=== PATIENT | female | born 1990 | race Two or more races ===

== ENCOUNTER 2023-12-10 12:15 | Outpatient (OUT) | payer OTHER, SELFPAY ==
--- NOTE | 2023-12-10 12:17 | US_ITS ---
[address] [address] Patient Name: SABRINA VELASQUEZ MRN: [id number] date: 1990 Sex: F Assigned Patient Location: US Current Patient Location: US Accession/Order Number: [id number] Exam Date: 12/10/2023 12:17 Report Date: 12/10/2023 13:24 At the request of: LIA BENAVIDES Procedure: US OB transvaginal EXAMINATION: US OB transvaginal HISTORY: MISSED MENSES COMPARISON: No relevant comparison available. FINDINGS: Martínez intrauterine gestation Gestational sac: 4.2 cm, 9 weeks 4 days CRL: 4.67 cm, 11 weeks 2 days Yolk sac: 6.6 mm Heart rate: 153 beats minute Cervix: Closed, 4.8 cm The uterus is normal, anteverted, anteflexed The ovaries are normal Clinical age: 10 weeks 6 days Clinical FRANCISCO: 07/01/2024 Ultrasound age: 11 weeks 3 days Ultrasound FRANCISCO: 06/27/2024 US/US OB transvaginal IMPRESSION: Viable martínez intrauterine gestation measuring 11 weeks 3 days Electronically authenticated by: SHAY BEY Date: 12/10/2023 13:24
== END 2023-12-10 12:16 | disposition home or self-care (01) ==
LOC: US 12:15
PROVIDERS: Visit Provider Obstetrics & Gynecology
DX: Z34.91 Encounter for supervision of normal pregnancy, unspecified, first trimester (principal); N92.6 Irregular menstruation, unspecified
CPT/HCPCS: 76817

== ENCOUNTER 2023-12-30 14:12 | Outpatient (OUT) | payer OTHER, SELFPAY ==
--- OUTSIDE RECORDS SUMMARY | 2023-12-30 14:20 | XMS_ITS | CCD ---
Author Name Unknown Address [address] [place] [address] Organization [facility] Care Team Providers Care Emergency Services Director Name Role Phone Omid Killian Unavailable Unavailabl e MOROCCVANESSA Zazueta Unavailable Unavailable KILLIAN, OMID SANDADI Unavailable Unavailabl e SYSTEM, PROVIDER NOT IN Unavailable Unavaila ble TRACY, NOWWAR GHAZI YASIN Unavailable Unav ailable LOGAN ZAMAN Unavailable Unavailabl e KILLIAN, OMID SANDADI Unavailable Unavailabl e Killian, Omid Sandadi Primary Care Provider OMID KILLIAN Primary Care Unavailabl ALICIA Ramos Attending Unavailable Medications Current Medications Medication Drug Class(es) Dates Sig (Normalized) Sig (Original) adapalene 0.003 mg/mg / benzoyl peroxide 0.025 mg/mg topical gel (4 sources) Retinoid Start: 05-17-2018 adapalene-benzoyl peroxide (EPIDUO FORTE) 0.3-2.5 % GlwP Apply 1 application topically daily. 45 g 1 05/17/2018 Active 24 hr minocycline 105 mg extended release oral tablet (4 sources) Tetracycline-clas s Drug Start: 08-09-2018 take 1 tablet by mouth once daily minocycline (SOLODYN) 105 mg Tb24 Take 105 mg by mouth daily. 30 tablet 2 08/09/2018 Active Start: 05-17-2018 take 1 tablet by nimesh th once daily, then take 1 tablet by mouth minocycline (SOLODYN) 105 mg Tb24 Take 105 mg by mouth daily. 30 tablet 2 05/17/2018 Active Completed/Discontinued Medications Medication Drug Class(es) Dates Sig (Normalized) Sig (Original) 2 ml rho(d) immune globulin, human 750 unt/ml prefilled syringe (1 source) Human Immunoglobulin G Start: 07-14-2020 End: 07-14-2020 rho(d) immune globulin (RHOPHYLAC) injection 300 mcg Problems Problem Classification Problem Date Documented Date Episodic/Chronic Hemorrhage during ; abruptio placenta; placenta previa (1 source) Threatened miscarriage; Translations: [Threatened ] Episodic Medical examination/evaluatio n (2 sources) Encounter for preprocedural cardiovascular examination; Translations: [Encounter for preprocedural cardiovascular examination] Onset: 06-14-2018 Episodic Other skin disorders (3 sources) Acne vulgaris; Translations: [Acne vulgaris] Onset: 05-17-2018 Episodic Skin and subcutaneous tissue infections (3 sources) Carbuncle; Translations: [Carbuncle, unspecified] Onset: 05-17-2018 Episodic Substance-related disorders (6 sources) Smoker; Translations: [Nicotine dependence, unspecified, uncomplicated] Onset: 06-14-2018 06-14-2018 Chronic Unclassified (4 sources) Patient encounter status; Translations: [Preop cardiovascular exam] Onset: 06-14-2018 06-14-2018 Results Test Name Value Interpretation Reference Range Facility [facility] VERIFICATIONon 020 ABO and Rh group Nom (Bld) A Negative [facility] ABO and Rh group Nom (Bld) ABO/Rh Verification [facility] BMPon 07-14-2020 Anion gap [Moles/Vol] 6 mmol/L Low 10 - 20 mmol/L [facility] Calcium [Mass/Vol] 9.0 mg/dL 8.4 - 10. 2 mg/dL [facility] Chloride [Moles/Vol] 113 mmol/L High 98 - 108 mmol/L [facility] Creatinine [Mass/Vol] 0.64 mg/dL 0.40 - 1.10 [facility] GFR/1.73 sq M predicted among non-blacks MDRD (S/P/Bld) [Vol rate/Area] The eGFR should be used for monitoring renal function only and not for medication dosing. [facility] GFR/1.73 sq M.predicted CKD-EPI (S/P/Bld) [Vol rate/Area] 122 >=60 mL/min/1.73 m2 [facility] Glucose [Mass/Vol] 71 mg/dL 65 - 99 mg/dL [facility] HCO3 [Moles/Vol] 28 mmol/L 21 - 32 mmol/L [facility] Potassium [Moles/Vol] 3.9 mmol/L 3.5 - 5.1 mmol/L [facility] Sodium [Moles/Vol] 143 mmol/L 135 - 145 mmol/L [facility] Urea nitrogen [Mass/Vol] 8 mg/dL 8 - 25 mg/dL [facility] Urea nitrogen/Creatinine [Mass ratio] 12.5 mg/mg [facility] CBC WITH AUTO DIFFERENTIALon 07-14-2020 Basophils (Bld) [#/Vol] 0.03 10*3/uL [facility] Basophils/100 WBC (Bld) 0.4 % [facility] Eosinophils (Bld) [#/Vol] 0.10 10*3/uL [facility] Eosinophils/100 WBC (Bld) 1.5 % [facility] Erythrocyte distribution width (RBC) [Entitic vol] 12.3 % 11.6 - 14.8 % [facility] Hematocrit (Bld) [Volume fraction] 39.2 % 36 - 46 % [facility] Hemoglobin (Bld) [Mass/Vol] 13.6 g/dL 12 - 16 g/dL [facility] Immature granulocytes (Bld) [#/Vol] 0.02 10*3/uL [facility] Immature granulocytes/100 WBC (Bld) 0.30 % [facility] Comment on above: The IG parameter is the percentage of metamyelocytes, myelocytes and promyelocytes. An immature granulocyte count (IG) of 1% or more suggests the possibility of infection, an IG count of 3% is very likely related to an infection. Lymphocytes (Bld) [#/Vol] 1.95 10*3/uL [facility] Lymphocytes/100 WBC (Bld) 29.2 % [facility] MCH (RBC) [Entitic mass] 30.4 pg 26 - 34 pg [facility] MCHC (RBC) [Mass/Vol] 34.7 g/dL 31 - 37 g/dL [facility] MCV (RBC) [Entitic vol] 87.7 fL 80 - 100 fL [facility] Monocytes (Bld) [#/Vol] 0.48 10*3/uL [facility] Monocytes/100 WBC (Bld) 7.2 % [facility] Neutrophils (Bld) [#/Vol] 4.09 10*3/uL [facility] Neutrophils/100 WBC (Bld) 61.4 % [facility] Nucleated RBC (Bld) [#/Vol] 0.00 10*3/uL [facility] Nucleated RBC/100 WBC (Bld) [Ratio] 0.0 % [facility] Platelet mean volume (Bld) [Entitic vol] 11.8 fL 9.4 - 12.4 fL [facility] Platelets (Bld) [#/Vol] 151 10*3/uL [facility] RBC (Bld) [#/Vol] 4.47 10*6/uL [facility] WBC (Bld) [#/Vol] 6.67 10*3/uL [facility] Otheron 07-14-2020 Extra Tube Hold for add-ons. [facility] Comment on above: Auto resulted. Interpretation and review of laboratory results Abnormal [facility] Type and Screenon 07-14-2020 ABO and Rh group Nom (Bld) A Negative [facility] Blood group antibody screen Ql Negative [facility] Specimen Expires 07/17/2020 23:59 EST [facility] URINALYSISon 07-14-2020 Bacteria Auto Ql (U) None Seen None Seen /hpf [facility] Bilirubin Ql (U) Negative Negative [facility] th Clarity Refractometry automated (U) Clear Clear [facility] Color (U) Yellow Colorless, Yellow [facility] Epithelial cells.squamous Auto (Urine sed) [#/Area] 5 High [facility] Glucose Auto test strip (U) [Mass/Vol] Negative Negative mg/dL [facility] Hemoglobin Auto test strip Ql (U) Moderate Abnormal Negative [facility] Interpretation and review of laboratory results Abnormal [facility] Ketones (U) [Mass/Vol] Negative Negative mg/dL [facility] Leukocyte esterase Auto test strip Ql (U) Trace Abnormal Negative [facility] Mucus Auto (Urine sed) [#/Area] Rare None Seen, Rare /lpf [facility] Nitrite Auto test strip Ql (U) Negative Negative [facility] pH (U) 7.0 [pH] [facility] Protein (U) [Mass/Vol] Negative Negative mg/dL [facility] RBC Auto (Urine sed) [#/Area] 2 [facility] Specific gravity (U) [Rel density] 1.011 [facility] Urobilinogen (U) [Mass/Vol] <2.0 <2.0 mg/dL [facility] WBC Auto (Urine sed) [#/Area] 2 [facility] Microscopic examination is performed on all urinalysis samples and only positive findings are reported. The test for blood on the chemical analytic portion of urinalysis may also be positive due to hemoglobinuria and myoglobinuria and if red blood cells are present they are quantified by microscopic examination. [facility] OB 1ST TRIMESTER WITH TRA NSVAGINAL TRANSABDOMINAL AND COLOR FLOW SINGLE FETUSon 07-14-2020 US OB 1ST TRIMESTER WITH TRANSVAGINAL TRANSABDOMINAL AND COLOR FLOW SINGLE FETUS EXAMINATION: ULTRASOUND OF THE PELVIS, ENDOVAGINAL IMAGING WITH DUPLEX DOPPLER HISTORY: ORDERING SYSTEM PROVIDED HISTORY: vaginal bleeding, TECHNOLOGIST PROVIDED HISTORY: Illness/Other Reason for exam: SPOTTING Cancer History: no Surgery, RadiationHistory: no Encounter Type: Initial Additional signs and symptoms: no ORDERING SYSTEM PROVIDED DIAGNOSIS CODES: COMPARISON: None. TECHNIQUE: Endovaginal hawkins-scale imaging was supplemented with color Doppler and spectral waveform analysis including arterial and venous evaluation. FINDINGS: UTERUS: 7.5 x 4.1 x 3.4 cm. Normal myometrial echogenicity ENDOMETRIUM: 12.2 mm. No intrauterine gestational sac seen. RIGHT OVARY: 2.4 cm. Normal appearance. LEFT OVARY: 2.3 cm. Normal appearance Color Doppler with spectral waveform analysis reveals preserved arterial flow to both ovaries with no torsion. Resistive index: Right 0.6. Left 0.6. These measurements are within normal limits. No free peritoneal fluid is seen. IMPRESSION: 1. Normal study. 2. With a positive beta hCG, this is a of unknown location. Clinical correlation including serial beta hCG levels is needed differentiate the possibilities which include extremely early , spontaneous of recent , or ectopic gestation which is not directly visualized. With a history of bleeding, spontaneous of is believed most likely. [facility] Workstation ID: [id number] Dictated by: SHAY FERNANDEZ on Sat Jul 14, 2020 12:00:51 PM EDT Transcribed by: PREETI VILLALTA on Sat Jul 14, 2020 12:07:08 PM EDT Finalized by: SHAY FERNANDEZ on Sat Jul 14, 2020 12:57:25 PM EDT Normal [facility] Comment on above: Order Comment: Injur y/Trauma or Illness?:Illness/Other How long have you had these symptoms (acute/chronic)?:Acute Reason for exam?:SPOTTING History of cancer?:no Surgeries, chemotherapy, or radiation?:no Type of Exam?:Initial Additional signs and symptoms?:no US Obstetric 1st Trimester W ith Transvaginal, Transabdominal And Color Flow Single Fetuson 07-14-2020 EXAMINATION: ULTRASOUND OF THE PELVIS, ENDOVAGINAL IMAGING WITH DUPLEX DOPPLER HISTORY: ORDERING SYSTEM PROVIDED HISTORY: vaginal bleeding, TECHNOLOGIST PROVIDED HISTORY: Illness/Other Reason for exam: SPOTTING Cancer History: no Surgery, RadiationHistory: no Encounter Type: Initial Additional signs and symptoms: no ORDERING SYSTEM PROVIDED DIAGNOSIS CODES: COMPARISON: None. TECHNIQUE: Endovaginal hawkins-scale imaging was supplemented with color Doppler and spectral waveform analysis including arterial and venous evaluation. FINDINGS: UTERUS: 7.5 x 4.1 x 3.4 cm. Normal myometrial echogenicity ENDOMETRIUM: 12.2 mm. No intrauterine gestational sac seen. RIGHT OVARY: 2.4 cm. Normal appearance. LEFT OVARY: 2.3 cm. Normal appearance Color Doppler with spectral waveform analysis reveals preserved arterial flow to both ovaries with no torsion. Resistive index: Right 0.6. Left 0.6. These measurements are within normal limits. No free peritoneal fluid is seen. [facility] 1. Normal study. 2. With a positive beta hCG, this is a of unknown location. Clinical correlation including serial beta hCG levels is needed differentiate the possibilities which include extremely early , spontaneous of recent , or ectopic gestation which is not directly visualized. With a history of bleeding, spontaneous of is believed most likely. [facility] Workstation ID: [id number] [facility] Interface, Rad In Etelvina Edwardq - 07/14/2020 1:00 PM EDT EXAMINATION: ULTRASOUND OF THE PELVIS, ENDOVAGINAL IMAGING WITH DUPLEX DOPPLER HISTORY: ORDERING SYSTEM PROVIDED HISTORY: vaginal bleeding, TECHNOLOGIST PROVIDED HISTORY: Illness/Other Reason for exam: SPOTTING Cancer History: no Surgery, RadiationHistory: no Encounter Type: Initial Additional signs and symptoms: no ORDERING SYSTEM PROVIDED DIAGNOSIS CODES: COMPARISON: None. TECHNIQUE: Endovaginal hawkins-scale imaging was supplemented with color Doppler and spectral waveform analysis including arterial and venous evaluation. FINDINGS: UTERUS: 7.5 x 4.1 x 3.4 cm. Normal myometrial echogenicity ENDOMETRIUM: 12.2 mm. No intrauterine gestational sac seen. RIGHT OVARY: 2.4 cm. Normal appearance. LEFT OVARY: 2.3 cm. Normal appearance Color Doppler with spectral waveform analysis reveals preserved arterial flow to both ovaries with no torsion. Resistive index: Right 0.6. Left 0.6. These measurements are within normal limits. No free peritoneal fluid is seen. IMPRESSION: 1. Normal study. 2. With a positive beta hCG, this is a of unknown location. Clinical correlation including serial beta hCG levels is needed differentiate the possibilities which include extremely early , spontaneous of recent , or ectopic gestation which is not directly visualized. With a history of bleeding, spontaneous of is believed most likely. [facility] Workstation ID: [id number] [facility] VAGINITIS DNA PROBESon 07-14 Olga sp DNA Probe+sig amp Ql (Vag fld) Negative Negative [facility] G. vaginalis DNA Probe+sig amp Ql (Vag fld) Negative Negative [facility] Interpretation and review of laboratory results Normal [facility] T. vaginalis DNA Probe+sig amp Ql (Vag fld) Negative Negative [facility] hCG, Blood, QUANTitativeon 0 07-14-2020 Beta HCG ( test) Ql (U) Males and non females: <5 mIU/mL Females during : 3-4 weeks 9-130 mIU/mL 4-5 weeks 75-2600 mIU/mL 5-6 weeks 850-20,800 mIU/mL 6-7 weeks 4000-100,200 mIU/mL 7-12 weeks 11,500-289,000 mIU/mL 12-16 weeks 18,300-137,000 mIU/mL 16-29 weeks 1,400-53,000 mIU/mL 29-41 weeks 940-60,000 mIU/mL [facility] HCG Qn 438 m[IU]/mL High [facility] Basic Metabolic Panelon 04-0 Anion gap [Moles/Vol] 7.0 mmol/L Normal 6.0-18.0 [facility] Comment on above: Performed By: #### 2 4321-2, 05558-2, 91026-5e1, 1988-03 ####[facility] [address], [place] Calcium [Mass/Vol] 8.6 mg/dL Low 8.9-10.3 [facility] Comment on above: Performed By: #### 2 4321-2, 94984-9, 18529-3y4, 1988-03 ####[facility] [address], [place] Chloride [Moles/Vol] 107 mmol/L Normal 98-107 [facility] Comment on above: Performed By: #### 2 4321-2, 21166-6, 15194-3k3, 1988-03 ####[facility] [address], [place] CO2 [Moles/Vol] 24 mmol/L Normal 22-32 [facility] Comment on above: Performed By: #### 2 4321-2, 98925-2, 60742-5h3, 1988-03 ####[facility] [address], [place] Creatinine [Mass/Vol] 0.67 mg/dL Normal 0.60-1.30 [facility] Comment on above: Performed By: #### 2 1-2, 32681-6, 91927-8l4, 1988-03 ####[facility] [address], [place] Glucose [Mass/Vol] 105 mg/dL High 70-99 [facility] Comment on above: Result Comment: U pdated ADA Reference Range A normal fasting glucose concentration is less than 100 mg/dL. An impaired fasting glucose concentration is 100-125 mg/dL. A provisional diagnosis of diabetes mellitus can be made when a fasting glucose concentration is greater than 125 mg/dL. Performed By: #### 2 4320-2, 27079-3, 02885-4u8, 1988-03 ####[facility] [address], [place] Potassium [Moles/Vol] 4.1 mmol/L Normal 3.6-5.1 [facility] Comment on above: Performed By: #### 2 4321-2, 08588-2, 68730-4n2, 1988-03 ####[facility] [address], [place] Sodium [Moles/Vol] 138 mmol/L Normal 136-145 [facility] Comment on above: Performed By: #### 2 1-2, 31817-8, 77962-0e6, 1988-03 ####[facility] [address], [place] Urea nitrogen (BldV) [Mass/Vol] 8 mg/dL Normal 8-20 [facility] Comment on above: Performed By: #### 2 4321-2, 57989-6, 54613-8p5, 1988-03 ####[facility] [address], [place] C-Reactive Proteinon 019 CRP [Mass/Vol] 3.2 mg/dL High <1.0 [facility] Comment on above: Performed By: #### 2 4321-2, 05868-1, 20563-7f3, 1988-03 ####[facility] [address], [place] CBCon 03-01-2019 Erythrocyte distribution width (RBC) [Entitic vol] 14.3 % Normal 11.0-14.8 [facility] Comment on above: Performed By: #### 2 4317-0 ####[facility]ARENME[facility] [address], [place] Hematocrit (Bld) [Volume fraction] 37.5 % Normal 35.0-45.0 [facility] Comment on above: Performed By: #### 2 4317-0 ####[place] [address], [place] Hemoglobin (Bld) [Mass/Vol] 12.5 g/dL Normal 12.0-16.0 [facility] Comment on above: Performed By: #### 2 4317-0 ####[place] [address], [place] MCH (RBC) [Entitic mass] 28.1 Picograms Normal 27.0-34.0 [facility] Comment on above: Performed By: #### 2 4317-0 ####[place] [address], [place] MCHC (RBC) [Mass/Vol] 33.3 g/dL Normal 32.0-36.0 [facility] Comment on above: Performed By: #### 2 4317-0 ####[place] [address], [place] MCV (RBC) [Entitic vol] 84.6 fL Normal 80.0-97.0 [facility] Comment on above: Performed By: #### 2 4317-0 ####[address] [place], [place] Platelet mean volume (Bld) [Entitic vol] 10.5 fL Normal 6.2-12.1 [facility] Comment on above: Performed By: #### 2 4317-0 ####[address] [address] [place], [place] Platelets (Bld) [#/Vol] 231 thou/mcL Normal 142-424 [facility] Comment on above: Performed By: #### 2 4317-0 ####[address] [address] [place], [place] RBC (Bld) [#/Vol] 4.43 million/mcL Normal 3.80-5.10 [facility] Comment on above: Performed By: #### 2 4317-0 ####[place] [place] [address] [place] WBC (Bld) [#/Vol] 12.7 thou/mcL High 4.6-10.2 [facility] Comment on above: Performed By: #### 2 4317-0 ####[place] [address] [place], [place] GFRaaon 03-01-2019 GFR/1.73 sq M predicted among blacks MDRD (S/P/Bld) [Vol rate/Area] mL/min/{1.73_m2} Normal [facility] Comment on above: Result Comment: The MDRD equation has not been validated for those over 70 years, women, patients with serious co-morbid conditions, or with extremes of body size, muscle mass of nutritional status. Performed By: #### 2 4321-2, 10254-8, 31902-9o7, 1988- ####[address] [address] [address] [place], [place] GFRbbon 03-01-2019 GFR/1.73 sq M predicted among non-blacks MDRD (S/P/Bld) [Vol rate/Area] mL/min/{1.73_m2} Normal [facility] Comment on above: Performed By: #### 2 4321-2, 97689-6, 26299-0f6, 1987- ####[facility] [address] [place], [place] Glucose POCT (Uploaded)on Glucose [Mass/Vol] 87 mg/dL Normal 70-99 [facility] Comment on above: Result Comment: Nadia tment ranges and critical values established by Patient Care Services. All follow-up actions were taken by Patient Care Services. Performed By: #### 2 430-8 ####[facility] Glucose [Mass/Vol] 93 mg/dL Normal 70-99 [facility] Comment on above: Result Comment: Nadia tment ranges and critical values established by Patient Care Services. All follow-up actions were taken by Patient Care Services. Performed By: #### 2 430-8 ####[facility] Glucose [Mass/Vol] 95 mg/dL Normal 70-99 [facility] Comment on above: Result Comment: Nadia tment ranges and critical values established by Patient Care Services. All follow-up actions were taken by Patient Care Services. Performed By: #### 2 430-8 ####[facility] Glucose [Mass/Vol] 123 mg/dL High 70-99 [facility] Comment on above: Result Comment: Nadia tment ranges and critical values established by Patient Care Services. All follow-up actions were taken by Patient Care Services. Performed By: #### 2 430-8 ####[facility] PACU I Nursingon 03-01-2019 PACU I Nursing [facility] PACU I Nursin g Record Summary Primary Physician: Marcellus Driscoll MD Finalized Date/Time: 03/01/19 07:03:14 Pt. Name: SABRINA VELASQUEZ/Sex: 1990 Female Med Rec #: [id number] Physician: Marcellus Driscoll MD Financial #: [id number] Pt. Type: I Room/Bed: [address] [place] [address] Admit/Disch: 02/28/19 08:18:00 - Institution: [facility] OR Main PACU I Case Times Entry 1 In PACU I 02/28/19 14:06:00 Ready for PACU I 02/28/19 15:15:00 Discharge Discharge from PACU 02/28/19 15:15:00 PACU I Discharge NA I Delay Reason Last Modified By: Elissa Shaffer RN 02/28/19 15:45:35 [facility] OR Main PACU I Case Attendees Entry 1 Case Attendee Elissa Shaffer RN Role Performed RN Last Modified By: Elissa Shaffer RN 02/28/19 14:07:29 Finalized By: Sherrie Rendon RN Document Signatures Signed By: Elissa Shaffer RN 02/28/19 15:45 Sherrie Rendon RN 03/01/19 07:03 Normal [facility] Patient Summaryon 03-01-2019 Patient Summary PATIENT DISCHARGE INSTRUCTIONS If you are having an emergency and are not able to reach your physician, CALL 911 or go to the nearest emergency room and take this document with you. [facility] 03/01/19 18:[address] [place] [address]. [facility] PATIENT INFORMATION Name: SABRINA VELASQUEZ Address: [address] [place] [address] Age: 29 Years Phone: [phone] : 1990 12:00 MRN: ([facility][id number] Sex: Female Race: White Ethnicity: Declined Admitted From: Clinic or [facility] Medical Service: Surgery Nurse Unit/Bed: (NC) 7TWH 5G61-94 Admit Date: 02/28/2019 08:18 PCP: Omid Killian MD PHYSICIANS INVOLVED WITH CARE ------ Attending Physicians: Marcellus Driscoll MD - Surgery Admitting Physician: Marcellus Driscoll MD - Surgery Primary Care Physician:Donaldo URBINA , Omid Almeida, - Consults: None found FOLLOW-UP APPOINTMENTS: Provider: Specialty: Address: Date: Marcellus Driscoll MD Surgery [address] [facility] [place] [facility] [address] [facility] [address] (1) 03/08/19 01:45 pm Comment: Please follow-up at your pre-scheduled appointment. Provider: Specialty: Address: Date: Omid Killain MD [address] [facility] [address] (1) Follow-up as needed Provider: Specialty: Address: Date: Post-Op Nutrition Class [phone] 03/22/19 Comment: Please call [phone] for more information or to re-schedule. ALLERGIES: No Known Allergies No Known Medication Allergies MEASUREMENTS: Last Charted: Weight: 171.8 kg /378 lbs 12 oz ( 03/01/19 05:48:00 ) MEDICATIONS For: SABRINA VELASQUEZ This is your list of medication(s). Keep it with you at all times. Your doctor may have changed doses, add, held or stopped some of your medications. Please share this information with your family doctor. Carry this list of medications with you in case of an emergency. Update it when medications are stopped, doses are changed, or new medications (including [id number] products) are added. Ask your doctor if you have any questions. THESE ARE THE MEDICATIONS YOU SHOULD BE TAKING No Known Home Medications MEDICATION CHANGE DETAILS (Not your Final Home Medication List) During the course of your visit, your home medication list was updated with the most current information. The details of those changes are shown below: NEW MEDICATIONS None UPDATED MEDICATIONS None UNCHANGED MEDICATIONS None STOP TAKING THESE MEDICATIONS None DO NOT TAKE UNTIL YOU TALK TO YOUR DOCTOR None NON-MEDICATION PRESCRIPTION SCHEDULING PHONE NUMBER: EDUCATION MATERIALS GIVEN: Teaching Method Comment-Nutrition: Helpful Tips After Bariatric Surgery SELECTED LAB RESULTS Lab Result Order Date Hemoglobin 12.5 gm/dL 03/01/2019 Hematocrit 37.5 % 03/01/2019 WBC Count 12.7 thou/mcL 03/01/2019 Platelet Count 231 thou/mcL 03/01/2019 Sodium Level 138 mMol/L 03/01/2019 Potassium Level 4.1 mMol/L 03/01/2019 Creatinine 0.67 mg/dL 03/01/2019 BUN 8 mg/dL 03/01/2019 Glucose Level 105 mg/dL 03/01/2019 ADVANCE DIRECTIVE/HEALTH CARE DECISIONS: Advance Directive/Health Care Decisions Executed by Patient: : No Information Obtained From: Patient Advance Directive Health Care Information Offered: Patient declines DISCHARGE INSTRUCTIONS: Discharge Diet Avoid Alcoholic and Caffeinated beverages. They increase the risk of dehydration and have little nutritional value. Avoid carbonated beverages, including sparkling mineral water. Avoid drinks that contain added sugar as these can cause dumping syndrome. Drink enough fluids to keep you from becoming thirsty or dehydrated. 64 ounces is recommended daily. Begin with 15 cc of fluid every 15 minutes for 16 hours (total of 32 oz) and gradually advance to 30 cc ever 15 minutes for 16 hours (total 64 ounces. Suggested fluids include: water, Crystal light, sugar free Pop-aid, sugar free Popsicles, decaffeinated or herbal tea, broth/ bouillon, sugar- free flavored water, Special K protein water, and other non-carbonated, low calorie drinks, and Special K protein water. 100% fruit juices (apple, cranberry, grape) should be diluted 50/50 with water and limited to 8ounces/day. Continue sugar-free liquids and protein shakes until next office visit. Frequently nausea may be caused by too much food, eating too fast, not chewing enough or eating the wrong foods.. If you are vomiting and unable to keep down any fluids even after taking medication, return to to Phase I diet for 24 hours and see if it has improved. Modified liquid diet. Follow recommendations from your surgeon and hydrate thickener operator regarding you diet. Refer to nutrition information provided before surgery. Protein intake is extremely important. Include high protein beverages such as skim milk, no sugar added Instant Breakfast mixes, whey protein or soy protein drink, and Special K protein water. Goal is 64 oz per day.. Use one- ounce medication cups to help gauge the amount of liquids you consume. Liquids should be sipped slowly (1oz. Over 15 minutes), never gulp. Stop when a feeling of fullness occurs. Do not use straws.. Discharge Activities Continue with walking at least nine times a day. Continue with your range of motion activities. Gradually increase activity according to your energy level. Go upstairs slowly. Shower daily. Do not drive or return to work until cleared by your surgeon. Do not drive or ride in a car for more than one hour without getting out and walking for 10 minutes. Limit lifting to less than 25 pounds for 3 weeks, then may lift when incision no longer painful. Pain Management Instructions Your throat may be sore for a few days. Discharge Medication Info Ask your doctor before taking any supplements, herbal or byqn-omi-qgnecsc medications. Call your physician if any questions regarding medications. Do not drink alcoholic beverages (beer, wine or liquor) when taking pain medications. Take all medications as prescribed. Do not stop medications without checking with your physician. If you have more than one oral medication to take at one time, you must space the pills 15 to 20 minutes apart. Take antibiotics until they are gone even if you feel better. Take the pain medication as ordered by your doctor. Take your medication prescribed for nausea as needed. To best control your pain, take your pain medication regularly for the first 24 to 48 hours after discharge. Do not wait until pain increases to take your medication. You should not take any medication unless your surgeon tells you it is okay. Take your Flintstones Chewable Vitamin with Iron one in the morning and one in the evening. Notify Physician If you have pain, tenderness, swelling, or redness in your leg, it may be a sign of blood clot formation. If you have shortness of breath, chest pain, and persistent coughing, it may be a sign of a blood clot in your lungs. Anything that you would consider abnormal for you, report to your doctor. For any other conditions that were not present when you were discharged from the hospital. For inablility to tolerate diet. If you have questions or concerns about your surgery or medicine. If you have abdominal pain not relieved by pain medications. If your incision/wound is swollen, red, or has increased drainage coming from it. This may mean it is infected. If you have ongoing diarrhea or constipation. If you have ongoing nausea or vomiting. If you develop a cold, sinus problems, flu-like symptoms, fever for any reason (temperature over 101F or 38C), problems urinating, (burning or stinging) or if you suspect an infection of any type, call your doctor immediately. Wound and Personal Care Do not be alarmed if a staple pulls out of the incision line it is ok. There may be straw colored fluid that exits from the incision line. No lotions or oils on or near open wounds. Wash incision lightly with soap and water once a day. Discharge Equipment and Supplies Continue to use your Incentive Spirometer at home. SUICIDE HOTLINE: Your mental and emotional well-being are important. If you are in a mental health crisis, or having thoughts of suicide, please call the nationwide suicide hotline, anytime day or night, at 5-684-328-SHST. Important information about accessing your health information through the [email or web address] patient portal If you initiated the self-registration process for [email or web address] during your stay, please check your personal email for an invitation to enroll in [email or web address] and complete the steps outlined in the email. If you would prefer to enroll while in the hospital, ask a member of your care team. We would be happy to assist you. If you have already enrolled in [email or web address], go to [email or web address] to login and access your health information. Thank you for choosing [facility]. PATIENT EDUCATION Gastric Bypass Surgery, Care After Refer to this sheet in the next few weeks. These discharge instructions provide you with general information on caring for yourself after you leave the hospital. Your caregiver may also give you specific instructions. Your treatment has been planned according to the most current medical practices available, but unavoidable complications sometimes occur. If you have any problems or questions after discharge, call your caregiver. HOME CARE INSTRUCTIONS Activity ?? Take frequent walks throughout the day. This will help to prevent blood clots. Do not sit for longer than 45 minutes to 1 hour while awake for 4 to 6 weeks after surgery. ?? Continue to do coughing and deep breathing exercises once you get home. This will help to prevent pneumonia. ?? Do not do strenuous activities, such as heavy lifting, pushing, or pulling, until after your follow-up visit with your caregiver. Do not lift anything heavier than 10 lb (4.5 kg). ?? Talk with your caregiver about when you may return to work and your exercise routine. ?? Do not drive while taking prescription pain medicine. Nutrition ?? It is very important that you drink at least 64 oz. of fluid a day. ?? You should stay on a liquid diet until your follow-up visit with your caregiver. Keep sugar-free, liquid items on hand, including: ? Tea: hot or cold. Drink only decaffeinated for the first month. ? Broths: beef, chicken, vegetable. ? Others: water, sugar-free frozen ice pops, flavored water, gelatin (after 1 week). ?? Do not consume caffeine for 6 weeks. Large amounts of caffeine can cause dehydration. ?? A hydrate thickener operator may also give you specific instructions. ?? Follow your caregiver's recommendations about vitamins and protein requirements after surgery. Hygiene ?? You may shower and wash your hair 2 days after surgery. Pat incisions dry. Do not rub incisions with a washcloth or towel. ?? Follow your caregiver's recommendations about baths and pools following surgery. Pain control ?? If a prescription medicine was given, follow your caregiver's directions. ?? You may feel some gas pain caused by the carbon dioxide used to inflate your abdomen during surgery. This pain can be felt in your chest, shoulder, back, or abdominal area. Moving around often is advised. Incision care ?? You may have 4 or more small incisions. They are closed with skin adhesive strips. Skin adhesive strips can get wet and will fall off on their own. Check your incisions and surrounding area daily for any redness, swelling, discoloration, fluid (drainage), or bleeding. Dark red, dried blood may appear under these coverings. This is normal. ?? If you have a drain, it will be removed at your follow-up visit or before you leave the hospital. ?? If your drain is left in, follow your caregiver's instructions on drain care. ?? If your drain is taken out, keep a clean, dry bandage over the drain site. SEEK MEDICAL CARE IF: ?? You develop persistent nausea and vomiting. ?? You have pain and discomfort with swallowing. ?? You have pain, swelling, or warmth in the lower extremities. ?? You have an oral temperature above 102 F (38.9 C). ?? You develop chills. ?? Your incision sites look red, swollen, or have drainage. ?? Your stool is black, tarry, or maroon in color. ?? You are lightheaded when standing. ?? You notice a bruise getting larger. ?? You have any questions or concerns. SEEK IMMEDIATE MEDICAL CARE IF: ?? You have chest pain. ?? You have severe calf pain or pain not relieved by medicine. ?? You develop shortness of breath or difficulty breathing. ?? There is bright red blood coming from the drain. ?? You feel confused. ?? You have slurred speech. ?? You suddenly feel weak. MAKE SURE YOU: ?? Understand these instructions. ?? Will watch your condition. ?? Will get help right away if you are not doing well or get worse. This information is not intended to replace advice given to you by your health care provider. Make sure you discuss any questions you have with your health care provider. Document Released: 06/30/2005 Document Revised: 12/07/2015 Document Reviewed: 04/08/2011 [employer] Patient Education ??2016 [employer]. Gastric Bypass Discharge Instructions 1. Follow-up Care ? If you don't already have an appointment, call today to schedule an appointment to return to your surgeon in 7-10 days ? If you regularly see your primary care doctor or any specialist call today to schedule an appointment for follow-up in 1-3 weeks. ? Call today and schedule to meet with the dietitian for post-operative class at 2 weeks [phone] ? Call Bariatric Nurse Navigator [phone] with any further questions or concerns Call [phone] if you have difficulty breathing or chest pain. 2. Call your surgeon if you have: ? temperature above 101 F (38.3 C). Take your temperature 2 times each day for 1 week ? signs and symptoms of infection: redness, swelling, drainage, or foul odor at the incision sites shaking and/or chills ? shortness of breath ? pain in your legs ? persistent nausea and vomiting for more than 24 hours and are not able to keep clear liquids down ? increasing drainage from your drain tube 3. Diet ? Begin keeping a food diary ? Drink small amounts of water often (64 oz total a day) ? Continue to slowly sip liquids ? Do not drink alcohol or carbonated beverages for 6 months ? Follow dietary instructions provided by bariatric dietitian ? Eat slowly and teach yourself to put the eating utensils down between each bite ? Do not use straws when drinking ? Do not swallow anything bigger than a plain M and M?? 4. Activity ? You may shower-DO NOT bathe in a bathtub for 3 weeks ? Continue to use your incentive spirometer cough and deep breathe every 2 hours while you are awake ? Walk every 2-4 hours while awake. You should walk 60 minutes each day while you are recovering. ? Continue to go up and down stairs slowly, one step at a time ? You may do light activities only-no deep knee bending ? Do not lift over 5-10 pounds for 6 weeks ? Avoid sitting for long periods of time ? Do not drive until approved by your surgeon ? Do not ride in a car more than 1 hour without getting out and walking for 10 minutes ? Do not take pain medications when you start driving ? Do not return to work until approved with your surgeon ? Do not have sexual activity for 3 weeks 5. Care ? Measure drainage tube output at least every 8 hours and record in journal 6. Medications Do not take non steroidal anti-inflammatory medications such as: - Aspirin, acetylsalicylic acid (Ascriptin, Aspercin, Aspirtab,Bufferin, Buffinol, Durlaza, Ecotrin, Halfprin) - Celecoxib (Celebrex) - Diclofenac (Cambia, Cataflam, Dyloject, Voltaren, Zipsor, Zorvolex) - Diflunisal (Dolobid) - Etodolac (Lodine) - Fenoprofen (Fenortho, Nalfon) - Flurbiprofen (Ansaid) - Ibuprofen (Addaprin, Advil,Caldolor,Dyspel , Genpril, Medipren, Motrin,NeoProfen, Nuprin, Provil) - Indomethacin (Indocin, Tivorbex) - Ketoprofen (Frotek, Ketophene, Rapidpaq, Orudis, Oruvail) - Ketorolac (Toradol) - Meclofenamate (Meclomen) - Mefenamic acid (Ponstel) - Meloxicam (Mobic, Vivlodex) - Nabumetone (Relafen) - Naproxen (Aleve, Anaprox, Naprelan,Naprosyn) - Oxaprozin (Daypro) - Piroxicam (Feldene) - Sulindac - Tolmetin (Tolectin) 7. Progestin Control - Post Surgery Caution For Women of childbearing age receiving progestin-based control: Medications may have been administered as part of your surgical treatment that could interfere with progestin-based control which includes the following: many control pills, injectable hormonal control such as Depo-Provera injection and hormonal intra-uterine systems, implants or a vaginal ring. This effect is similar to missing one oral contraceptive pill. To prevent unintended , you should use a back-up method of control for one month. This information provided above is for informational purposes only. [facility] does not promote, condone or endorse all the values expressed herein. The values or opinions they express with regard to the use of artificial contraception are not consistent with the teachings of the Hindu Mandaen and the Ethical and Gnosticist Directives for [facility]. If any of these instructions are different from what your doctor tells you, follow your doctor's orders. If you smoke, you should quit. For more information, talk with your doctor or call 8-648-TVYN-NOW ( ). PATIENT DISCHARGE INSTRUCTION Signature Page for: SABRINA VELASQUEZ Date/Time: 03/01/2019 18:42:02 A Clinician has explained the information on my discharge instructions and has provided me with a copy. My questions have been answered to my satisfaction. Patient Signature Date/Time Responsible Party Date/Time Relationship to Patient Clinician Signature Date/Time Normal [facility] Glucose POCT (Uploaded)on Glucose [Mass/Vol] 140 mg/dL High [address] [place] [address] Comment on above: Result Comment: Nadia tment ranges and critical values established by Patient Care Services. All follow-up actions were taken by Patient Care Services. Performed By: #### 2 430-8 ####[facility] POINT OF CARE Glucose [Mass/Vol] 127 mg/dL High [address] [place] [address] Comment on above: Result Comment: Nadia tment ranges and critical values established by Patient Care Services. All follow-up actions were taken by Patient Care Services. Performed By: #### 2 430-8 ####[facility] POINT OF CARE Glucose [Mass/Vol] 141 mg/dL [address] Comment on above: Result Comment: Nadia tment ranges and critical values established by Patient Care Services. All follow-up actions were taken by Patient Care Services. Performed By: #### 2 430-8 ####[facility] POINT OF CARE Glucose [Mass/Vol] 164 mg/dL [address] Comment on above: Result Comment: Nadia tment ranges and critical values established by Patient Care Services. All follow-up actions were taken by Patient Care Services. Performed By: #### 2 430-8 ####[facility] POINT OF CARE OR Nursingon 02-28-2019 OR Nursing [facility] OR Nursing Record Summary Primary Physician: Marcellus Driscoll MD Finalized Date/Time: 02/28/19 14:10:30 Pt. Name: SABRINA VELASQUEZ/Sex: 1990 Female Med Rec #: [id number] Physician: Marcellus Driscoll MD Financial #: [id number] Pt. Type: I Room/Bed: / Admit/Disch: 02/28/19 08:18:00 - Institution: [facility] OR Case Times Entry 1 Patient Times Patient In Room 02/28/19 11:17:00 Patient Out Room 02/28/19 14:05:00 Surgical Times Start Time 02/28/19 11:53:00 Stop Time 02/28/19 13:58:00 Last Modified By: Abner MARTIN , Disha Aiken 02/28/19 14:09:18 [facility] OR Case Attendees Entry 1 Entry 2 Entry 3 Case Attendee Yamila URBINA , Marcellus Mcmahan DO , Jacob Dorado CRNA , Kenny Smallwood Role Performed Primary Surgeon Anesthesiologist Nurse Cartography/Mapping Technician Time In 02/28/19 11:17:00 02/28/19 11:17:00 02/28/19 11:17:00 Time Out 02/28/19 14:05:00 02/28/19 14:05:00 02/28/19 14:05:00 Procedure Bypass Gastric Bypass Gastric Bypass Gastric Robot(N/A) Robot(N/A) Robot(N/A) Attendee Comment Relief Reason Last Modified By: Abner RN , Disha Levine RN , Disha Levine RN , Disha Aiken 02/28/19 14:09:25 02/28/19 14:09:25 02/28/19 14:09:25 Entry 4 Entry 5 Entry 6 Case Attendee Abner MARTIN , Disha Guaman RN , Litzy Garcia Role Performed sane nurse RN First Scrub Time In 02/28/19 11:17:00 02/28/19 11:17:00 02/28/19 11:17:00 Time Out 02/28/19 14:05:00 02/28/19 14:05:00 02/28/19 14:05:00 Procedure Bypass Gastric Bypass Gastric Bypass Gastric Robot(N/A) Robot(N/A) Robot(N/A) Attendee Comment LUNCH [id number] LUNCH [id number] lunch [id number] Relief Reason Last Modified By: Abner MARTIN , Disha Levine RN , Disha Levine RN , Disha Aiken 02/28/19 14:09:25 02/28/19 14:09:25 02/28/19 14:09:25 Entry 7 Entry 8 Entry 9 Case Attendee Adi MARTIN , Swetha Rao, Attendee Other Role Performed sane nurse First Scrub Line Patroller Time In 02/28/19 11:48:00 02/28/19 11:57:00 02/28/19 11:17:00 Time Out 02/28/19 12:40:00 02/28/19 12:53:00 02/28/19 14:05:00 Procedure Bypass Gastric Bypass Gastric Bypass Gastric Robot(N/A) Robot(N/A) Robot(N/A) Attendee Comment [place] MIRANDA - INTUITIVE Relief Reason Last Modified By: Abner MARTIN , Disha Levine RN , Disha Levine RN , Disha Aiken 02/28/19 14:09:25 02/28/19 14:09:25 02/28/19 14:09:25 [facility] OR General Case Pressure Supervisor 1 OR CO W 11 ASA Class 3 Case Wound Class Clean Contaminated Specialty General Surgery Case Level Robotics Complex Procedure r/t No Traumatic Injury (blunt or penetrating) Diagnosis Preop Diagnosis E66.01 Morbid (severe) Postop Same As Preop Yes obesity due to excess calories Postop Diagnosis E66.01 Morbid (severe) obesity due to excess calories This is a down time No record. Last Modified By: Disha Levine RN 02/28/19 11:38:59 [facility] OR Surgical Procedures Entry 1 Procedure Bypass Gastric Robot Primary Procedure Yes Modifiers N/A Procedure Wound Clean Contaminated Class Primary Surgeon Yamila URBINA , Marcellus Ramsay Surgical Service General Surgery Anesthesia Type General Procedure Performed ROBOTIC GASTRIC BYPASS Start 02/28/19 11:53:00 Stop 02/28/19 13:58:00 Last Modified By: Disha Levine RN 02/28/19 14:09:31 [facility] OR Catheters, Drains, and Tubes Entry 1 Device Type CATH BARD CAICEDO TRAY Present on Arrival? No 16FR TEMP SEN W/URINE METER [id number] Inserted By Oly Guaman RN DC'd at End of Case? No Last Modified By: Disha Levine RN 02/28/19 11:41:50 [facility] Patient Positioning Entry 1 Body Position Supine Pressure Points Yes Assessed? Right Arm Position On armboard Left Arm Position On armboard Arm Secured Right, Left Positioning Device Gel Pads, Foot Board Padded Right Leg Position Straight Left Leg Position Straight Safety Strap Applied Yes Safety Strap Thighs Location Positioned By Kenny Dorado CRNA, Procedure Bypass Gastric Disha Levine RN, Robot(N/A) Oly Guaman RN, Page MD , Marcellus Ramsay Last Modified By: Gissell Joshi RN 02/28/19 11:57:06 [facility] Antithrombolytic Devices Entry 1 IPC Intermittent Right, Left IPC Size Knee Pneumatic Compression NATHALIE Hose Foot Pump Last Modified By: Disha Levine RN 02/28/19 11:43:45 [facility] Skin Prep Entry 1 Hair Removal Method None Skin Prep Prep Agents Chlorhexidine Gluconate Prep Site abdomen 2% w Alcohol Prep by Oly Guaman RN Procedure Bypass Gastric Robot(N/A) Last Modified By: Disha Levine RN 02/28/19 11:42:19 [facility] OR Fire Risk Assessment Entry 1 Alcohol Based Prep Yes Solution Dry Time >3 Minutes or According to Manufactures Instructions. No Pooling Observed. (No Alcohol Prep used Select N/A) Fire Risk Factors Yes = 1, No or N/A = 0 Procedure No Open O2 Source No Site/Incision Above (Face Mask/Nasal Xyphoid Process Cannula) Ignition source Yes Fire Risk Total 1 (Cautery, Laser, Score Fiberoptic Light Source) Last Modified By: Disha Levine RN 02/28/19 11:42:58 Post-Care Text: Standard Fire Safety precautions - Score 1 or 2 Prep drying time - minimum three minutes Protected heat source (i.e bovie blunt) Standard draping procedure HIGH RISK FIRE PRACTICES - SCORE 3 *RN verbalizes to the team the presence of high-risk score and verifies the fire triangle *Write High Risk on the white board *Verbally confirm lowest effective setting on the heat source *Minimize 02 entrapment by proper draping of the patient *Encourage use of wet sponges *Available basin with sterile water and bulb syringe for suppression *Anesthesia Awareness and communication of oxygen flows/concentration *Allow for dispersion of 02 at least 1 minute before and during electrosurgical and laser use and communicate to surgeon *Use lowest tolerable concentration of 02 (less than 30% when able) [facility] OR Surgical Safety Checklist Entry 1 TIme Out Verified 02/28/19 11:52:00 Procedure Bypass Gastric At: Robot(N/A) Pre-Induction Patient confirms Before Introduction of Additional identity, site and Incision/Suspend surgical team and/or Verification procedure, Anesthesia all Activities new members, Entire safety check complete, (Before surgical team verbally pulse ox on, Confirm Incision/Start of confirm patient, site, patient allergies, Procedure) procedure, Surgeon Implants, devices, reviews: what are the special equipment critical or unexpected available and steps, operative functioning duration, and anticipated blood loss?, Anesthesia reviews: are there any patient-specific concerns?, Nursing team reviews: has sterility been confirmed and are there any patient-specific concerns?, Antibiotic infused/ing and redosing discussed if applicable, Relevant images and results properly labeled and correctly displayed if applicable Fire Risk Yes Assessment Completed Last Modified By: Gissell Joshi RN 02/28/19 11:53:14 [facility] Cautery Entry 1 Cautery and Settings Type Monopolar Unit ID Number [email or web address] tower Grounding Pad Thigh right lateral Applied By Oly Guaman RN Location Last Modified By: Disha Levine RN 02/28/19 11:46:13 [facility] Medication Entry 1 Medication CO BUPIVACAINE MARCAINE Medication Dosage 30 ml SENSORCAINE 0.5% W/EPINEPHERINE 30ML SYRINGE AMPULE VIAL Route of sq Meds Administered By Marcellus Driscoll MD Administration Last Modified By: Disha Levine RN 02/28/19 11:46:47 [facility] Irrigation Entry 1 Irrigant 0.9% Saline Irrigant Volume 1000 mL Last Modified By: Disha Levine RN 02/28/19 11:46:56 [facility] OR Counts Entry 1 Entry 2 Instrument Count N/A N/A Surgeon Notified of Yes Yes Count Sponge Count Initial Count Done 1st count correct X-ray Taken No No Sharps/Miscellaneous Initial Count Done 1st count correct Count RN Performing Count Oly Guaman RN, RN, Hope Count Performed with Litzy Galdamez Shannon Comment Procedure Bypass Gastric Bypass Gastric Robot(N/A) Robot(N/A) Last Modified By: Disha Levine RN, RN, Jo Anna 02/28/19 11:47:16 02/28/19 14:10:05 [facility] Dressing/Packing Entry 1 Dressing Dressing/Packing ADHESIVE SKIN DERMABOND Type ADV 12/BX DNX12 Last Modified By: Disha Levine RN 02/28/19 13:22:38 [facility] Temperature Regulation Entry 1 Unit ID [id number] Site UPPER BODY Last Modified By: Gissell Joshi RN 02/28/19 11:58:29 [facility] Final Count Entry 1 Sponges Correct Yes Sharps/Miscellaneous Yes Correct Instruments Correct n/a Count Performed with Litzy Galdamez RN Performing Count Rowena MARTIN , Oly Surgeon Notified of Yes Count X-ray Taken No Procedure Bypass Gastric Robot(N/A) Last Modified By: Disha Levine RN 02/28/19 14:10:22 [facility] OR PNDS Risk of Impaired Skin Entry 1 Interventions/Activi Identifies physical OUTCOME STATEMENTS: The patient is free ties: alterations that may from visible signs and affect symptoms of injury procedure-specific related to positioning, positioning., Positions immobilization, the patient., pressure and/or Implements protective shearing forces. measures to prevent skin or tissue injury due to thermal, chemical, or mechanical sources., Uses supplies and equipment within safe parameters., Evaluates for signs and symptoms of injury as a result of positioning, immobilization, pressure and/or shearing forces. Last Modified By: Dihsa Levine RN 02/28/19 14:05:33 [facility] OR PNDS Risk of Infection Entry 1 INTERVENTIONS/ACTIVI Implements aseptic OUTCOME STATEMENT: The patient is free of TIES: technique., Performs signs and symptoms of skin preparations., infection at the Protects from conclusion of the cross-contamination., operative period. Initiates traffic control., Administers care to invasive device sites., Administers care to wound sites. Last Modified By: Disha Levine RN 02/28/19 13:22:51 [facility] OR PNDS Risk of Injury Entry 1 Interventions/Activi Implements protective OUTCOME STATEMENT: The patient is free ties: measures to prevent from visible signs and injury due to symptoms of injury electrical sources., related to electrical, Implements protective mechanical, radiation measures to prevent or laser. injury due to mechanical sources, Implements latex allergy precautions as needed, Records devices implanted during invasive procedure., Performs required counts., Evaluates for signs and symptoms of laser, electrical, mechanical and radiation injury. Last Modified By: Disha Levine RN 02/28/19 13:22:56 [facility] OR Patient Debriefing Entry 1 Patient Debriefing N/A review specimens Skin Assessment Unchanged from and how each is After Pre-Procedure labeled, Discuss equipment, instrument problems reported and case improvements, Review luna concerns for further patient management Last Modified By: Disha Levine RN 02/28/19 13:23:06 Case Comments Finalized By: Disha Levine RN Document Signatures Signed By: Disha Levine RN 02/28/19 14:10 Normal [facility] PreOp Nursingon 02-28-2019 PreOp Nursing [facility] PreOp Nursing Record Summary Primary Physician: Marcellus Driscoll MD Finalized Date/Time: 02/28/19 12:08:12 Pt. Name: EVA SABRINA Garcia/Sex: 1990 Female Med Rec #: [id number] Physician: Marcellus Driscoll MD Financial #: [id number] Pt. Type: I Room/Bed: / Admit/Disch: 02/28/19 08:18:00 - Institution: [facility] OR PreOp Case Times Entry 1 PreOp Case Times In Room Time 02/28/19 08:23:00 Out Room Time 02/28/19 11:15:00 Last Modified By: Gissell Joshi RN 02/28/19 12:08:08 [facility] OR PreOp Case Attendees Entry 1 Case Attendee Laurie Burns RN Role Suki RN Last Modified By: Laurie Burns RN 02/28/19 08:39:58 Finalized By: Gissell Joshi RN Document Signatures Signed By: Gissell Joshi RN 02/28/19 12:08 Normal [facility] CBC with Differentialon 01-29 Basophils (Bld) [#/Vol] 0.00 thou/mcL Normal 0.00-0.20 [facility] Comment on above: Performed By: #### 5 7021-8 #### [place] [address] [place], [place] Basophils/100 WBC (Bld) 0.4 % Normal 0.0-2.0 [facility] Comment on above: Performed By: #### 5 7021-8 #### [place] [address] [place], [place] Eosinophils (Bld) [#/Vol] 0.10 thou/mcL Normal 0.00-0.70 [facility] Comment on above: Performed By: #### 5 7021-8 #### [facility] [address], [place] Eosinophils/100 WBC (Bld) 1.5 % Normal 0.0-7.0 [facility] Comment on above: Performed By: #### 7021-8 #### [facility] [address], [place] Erythrocyte distribution width (RBC) [Entitic vol] 14.8 % Normal 11.0-14.8 [facility] Comment on above: Performed By: #### 5 7021-8 #### [facility] [address] [place], [place] Hematocrit (Bld) [Volume fraction] 41.4 % Normal 35.0-45.0 [facility] Comment on above: Performed By: #### 5 7021-8 #### [place] [address] [place] Hemoglobin (Bld) [Mass/Vol] 13.7 g/dL Normal 12.0-16.0 [facility] Comment on above: Performed By: #### 5 7021-8 #### [place] [address] [place] Lymphocytes (Bld) [#/Vol] 1.80 thou/mcL Normal 1.00-4.80 [facility] Comment on above: Performed By: #### 5 7021-8 #### [place] [address] [place] Lymphocytes/100 WBC (Bld) 21.5 % Low 22.0-44.0 [facility] Comment on above: Performed By: #### 5 7021-8 #### [facility] [address], [place] MCH (RBC) [Entitic mass] 28.6 Picograms Normal 27.0-34.0 [facility] Comment on above: Performed By: #### 5 7021-8 #### [facility] [address], [place] MCHC (RBC) [Mass/Vol] 33.2 g/dL Normal 32.0-36.0 [facility] Comment on above: Performed By: #### 5 7021-8 #### [facility] [address], [place] MCV (RBC) [Entitic vol] 86.0 fL Normal 80.0-97.0 [facility] Comment on above: Performed By: #### 5 7021-8 #### [facility] [address] [place] Monocytes (Bld) [#/Vol] 0.60 thou/mcL Normal 0.00-0.90 [facility] Comment on above: Performed By: #### 5 7021-8 #### [facility] [address] [place] Monocytes/100 WBC (Bld) 7.5 % Normal 0.0-12.0 [facility] Comment on above: Performed By: #### 5 7021-8 #### [facility] [address] [place] Neutrophils (Bld) [#/Vol] 5.90 thou/mcL Normal 1.80-7.70 [facility] Comment on above: Performed By: #### 5 7021-8 #### [place] [address] [place] Neutrophils/100 WBC (Bld) 69.1 % Normal 40.0-70.0 [facility] Comment on above: Performed By: #### 5 7021-8 #### [facility] [address] [place] Platelet mean volume (Bld) [Entitic vol] 11.3 fL Normal 6.2-12.1 [facility] Comment on above: Performed By: #### 5 7021-8 #### [facility] [address] [place] Platelets (Bld) [#/Vol] 194 thou/mcL Normal 142-424 [facility] Comment on above: Performed By: #### 5 7021-8 #### [facility] [address] [place] RBC (Bld) [#/Vol] 4.81 million/mcL Normal 3.80-5.10 [facility] Comment on above: Performed By: #### 5 7021-8 #### [facility] [address] [place] WBC (Bld) [#/Vol] 8.5 thou/mcL Normal 4.6-10.2 [facility] Comment on above: Performed By: #### 5 7021-8 #### [facility] [address] [place] Comprehensive Metabolic Pane satnam 2019 Albumin [Mass/Vol] 3.3 g/dL Low 3.5-4.8 [facility] Comment on above: Performed By: #### 2 4323-8, 15609-4h3, 19864-0 ####[facility] [address] [place] ALP [Catalytic activity/Vol] 72 Units/L Normal 32-91 [facility] Comment on above: Performed By: #### 2 4323-8, 04564-8h6, 04747-5 ####[place] [address] ALT [Catalytic activity/Vol] 18 Units/L Normal 14-63 [facility] Comment on above: Performed By: #### 2 4323-8, 52931-6x2, 98168-5 ####[place] [address] [place] Anion gap [Moles/Vol] 10.0 mmol/L Normal 6.0-18.0 [facility] Comment on above: Performed By: #### 2 4323-8, 83486-9d8, 19791-4 ####[facility] [address] [place] AST [Catalytic activity/Vol] 17 Units/L Normal 15-41 [facility] Comment on above: Performed By: #### 2 4323-8, 67587-6a4, 36035-3 ####[facility] [address] [place] Bilirubin [Mass/Vol] 0.7 mg/dL Normal 0.3-1.2 [facility] Comment on above: Performed By: #### 2 4323-8, 12746-6s8, 83151-0 ####[facility] [address] [place] Calcium [Mass/Vol] 8.5 mg/dL Low 8.9-10.3 [facility] Comment on above: Performed By: #### 2 4323-8, 18175-8l0, 96008-0 ####[facility] [address] [place] Chloride [Moles/Vol] 104 mmol/L Normal 98-107 [facility] Comment on above: Performed By: #### 2 4323-8, 69540-3d1, 22466-4 ####[facility] [address] [place] CO2 [Moles/Vol] 22 mmol/L Normal 22-32 [facility] Comment on above: Performed By: #### 2 4323-8, 80902-8v9, 81323-2 ####[facility] [address] [place] Creatinine [Mass/Vol] 0.79 mg/dL Normal 0.60-1.30 [facility] Comment on above: Performed By: #### 2 4323-8, 11638-0j1, 89401-0 ####[facility] [address] [place] Glucose [Mass/Vol] 93 mg/dL Normal 70-99 [facility] Comment on above: Result Comment: U pdated ADA Reference Range A normal fasting glucose concentration is less than 100 mg/dL. An impaired fasting glucose concentration is 100-125 mg/dL. A provisional diagnosis of diabetes mellitus can be made when a fasting glucose concentration is greater than 125 mg/dL. Performed By: #### 2 4323-8, 44491-6m4, 69137-0 ####[facility] [address] [place] Potassium [Moles/Vol] 4.1 mmol/L Normal 3.6-5.1 [facility] Comment on above: Performed By: #### 2 4323-8, 50025-7s6, 39540-7 ####[facility] [address] [place] Protein [Mass/Vol] 6.0 g/dL Low 6.1-7.9 [facility] Comment on above: Performed By: #### 2 4323-8, 23526-9x2, 02643-4 ####[facility] [address] [place] Sodium [Moles/Vol] 136 mmol/L Normal 136-145 [facility] Comment on above: Performed By: #### 2 4323-8, 18792-6x0, 03778-4 ####[facility] [address] [place] Urea nitrogen (BldV) [Mass/Vol] 13 mg/dL Normal 8-20 [facility] Comment on above: Performed By: #### 2 4323-8, 62724-7c6, 41073-4 ####[place] [address], [place] GFRaaon 2019 GFR/1.73 sq M predicted among blacks MDRD (S/P/Bld) [Vol rate/Area] mL/min/{1.73_m2} Normal [facility] Comment on above: Result Comment: The MDRD equation has not been validated for those over 70 years, women, patients with serious co-morbid conditions, or with extremes of body size, muscle mass of nutritional status. Performed By: #### 2 4323-8, 54357-3t7, 05321-4 ####[place] [address], [place] GFRbbon 2019 GFR/1.73 sq M predicted among non-blacks MDRD (S/P/Bld) [Vol rate/Area] mL/min/{1.73_m2} Normal [facility] Comment on above: Performed By: #### 2 4323-8, 60371-5g7, 79314-1 ####[facility] [address], [place] Glycohemoglobin (HGB A1C) Emanuel guardado 2019 HbA1c (Bld) [Mass fraction] 5.0 % tl hgb Normal <5.6 [facility] Comment on above: Result Comment: U pdated ADA Reference Range HbA1c values of 5.7-6.4 percent indicate an increased risk for developing diabetes mellitus. HbA1c values greater than or equal to 6.5 percent are diagnostic of diabetes mellitus. For diagnosis of diabetes in individuals without unequivocal hyperglycemia, results should be confirmed by repeat testing. Performed By: #### 4 549-2 ####[facility], [address] [place] [address]. Partial Thromboplastin Time (aPTT)on 2019 aPTT Coag (PPP) [Time] 29.6 Sec Normal 23.6-35.3 [facility] Comment on above: Performed By: #### 3 173-2, 5902-2 ####[facility], [address] [place] [address]. Prothrombin Timeon 9 INR Coag (Bld) [Relative time] 1.00 {INR} Normal [facility] Comment on above: Result Comment: The recommended therapeutic INR range for most cardiac indications is 2.0-3.0. For high intensity therapy(ie.mechanical heart valves), the recommended range is 2.5-3.5. Performed By: #### 3 173-2, 5902-2 ####[facility], [address] [place] [address]. PT Coag (PPP) [Time] 11.5 Sec Normal 9.3-12.4 [facility] Comment on above: Performed By: #### 3 173-2, 5902-2 ####[facility], [address] [place] [address]. XR Chest 2 Viewson 9 XR Chest 2 views Two-view chest exam Indication: pre-op. Cough for the past week. COMPARISON: E 66.01 FINDINGS: The lungs are clear and the costophrenic angles are sharp. The cardiomediastinal silhouette and bones are normal. IMPRESSION: Normal chest. [facility] thanks you for the opportunity to care for your patient. Workstation ID: [id number] FINAL REPORT Dictated By: Jean Hull MD 2019 08:47 Assigned Physician: Jean Hull MD Reviewed and Electronically Signed By: Jean Hull MD 2019 08:48 Transcribed by: GREGORY 2019 08:47 Technologist: SHAKA Carranza [facility] OR [place] 09-17-2018 OR Nursing [facility] OR Nursing Record Summary Primary Physician: Tristan Dickey MD Finalized Date/Time: 09/17/18 07:39:53 Pt. Name: EVA SABRINAFELIBERTO RosenthalO.B./Sex: 1990 Female Med Rec #: [id number] Physician: Financial #: [id number] Pt. Type: I Room/Bed: / Admit/Disch: 09/16/18 13:46:00 - 09/16/18 15:20:00 Institution: [facility] Case Times Entry 1 Patient Times Patient In Room 09/16/18 14:20:00 Patient Out Room 09/16/18 14:30:00 Anesthesia Times Anes Start 09/16/18 14:18:00 Anes Stop 09/16/18 14:33:00 Surgical Times Start Time 09/16/18 14:26:00 Stop Time 09/16/18 14:28:00 Last Modified By: Sherrie Rendon RN 09/17/18 07:37:51 General Comments: ANESTHESIA TIME START AND STOP ADDED PER ANESTHESIA PAPER RECORD KEILA RN [facility] Case Attendees Entry 1 Entry 2 Entry 3 Case Attendee Tristan Dickey MD TARRING MACHINE OPERATOR , Charbel Wolf DO Role Performed Primary Surgeon Nurse Cartography/Mapping Technician Anesthesiologist Time In 09/16/18 14:20:00 09/16/18 14:20:00 09/16/18 14:20:00 Time Out 09/16/18 14:30:00 09/16/18 14:30:00 09/16/18 14:30:00 Procedure Egd_(N/A) Egd_(N/A) Egd_(N/A) Attendee Comment Relief Reason Last Modified By: Breanna RN , Afia Carlos RN , Afia Carlos RN , Afia 09/16/18 14:31:12 09/16/18 14:31:12 09/16/18 14:31:12 Entry 4 Entry 5 Case Attendee Afia Carlos RN, RN , Rosalio Cohn sane nurse Helper/Driver Time In 09/16/18 14:20:00 09/16/18 14:20:00 Time Out 09/16/18 14:30:00 09/16/18 14:30:00 Procedure Egd_(N/A) Egd_(N/A) Attendee Comment Relief Reason Last Modified By: Afia Carlos RN, RN, Courtney 09/16/18 14:31:12 09/16/18 14:31:12 [facility] General Case Pressure Supervisor 1 OR CO W EN 02 ASA Class 3 Case Wound Class None Specialty General Surgery Case Level N/A Diagnosis Preop Diagnosis K21.9 Gastro-esophageal Postop Same As Preop No reflux disease without esophagitis Postop Diagnosis SMALL HIATAL HERNIA This is a down time No record. Last Modified By: Sherrie Rendon RN 09/17/18 07:38:32 General Comments: ASA CLASS ADDED PER SCANNED ANES. PAPER RECORD KEILA AARON [facility] Surgical Procedures Entry 1 Procedure Egd_ Primary Procedure Yes Modifiers N/A Procedure Wound None Class Primary Surgeon Tristan Dickey MD Surgical Service General Surgery Anesthesia Type MAC Procedure Performed (EGD) ESOPHAGOGASTRODUODENO SCO PY Start 09/16/18 14:26:00 Stop 09/16/18 14:28:00 Last Modified By: Sherrie Rendon RN 09/17/18 07:39:25 General Comments: ANESTHESIA TYPE CHANGED PER PAPER ANESTHESIA RECORD KEILA AARON [facility] Fire Risk Assessment Entry 1 Alcohol Based Prep n/a Solution Dry Time >3 Minutes or According to Manufactures Instructions. No Pooling Observed. (No Alcohol Prep used Select N/A) Fire Risk Factors Yes = 1, No or N/A = 0 Procedure Yes Open O2 Source Yes Site/Incision Above (Face Mask/Nasal Xyphoid Process Cannula) Ignition source Yes Fire Risk Total 3 (Cautery, Laser, Score Fiberoptic Light Source) Last Modified By: Afia Carlos RN 09/16/18 14:04:39 Post-Care Text: Standard Fire Safety precautions - Score 1 or 2 Prep drying time - minimum three minutes Protected heat source (i.e bovie blunt) Standard draping procedure HIGH RISK FIRE PRACTICES - SCORE 3 *RN verbalizes to the team the presence of high-risk score and verifies the fire triangle *Write High Risk on the white board *Verbally confirm lowest effective setting on the heat source *Minimize 02 entrapment by proper draping of the patient *Encourage use of wet sponges *Available basin with sterile water and bulb syringe for suppression *Anesthesia Awareness and communication of oxygen flows/concentration *Allow for dispersion of 02 at least 1 minute before and during electrosurgical and laser use and communicate to surgeon *Use lowest tolerable concentration of 02 (less than 30% when able) [facility] Interventional Checklist Entry 1 TIme Out Verified 09/16/18 14:21:00 Procedure Egd_(N/A) At: Pre-Procedure/Pre-In Patient confirms Suspend All Introduction of team duction Additional identity, site, Activities (Before and/or new members, Verification procedure and consent, Incision/Start of Entire Procedure team (Before Induction/ Anesthesia safety check Procedure) verbally confirm Administration of complete, Pulse patient, site, Sedation) oximeter on, Confirm procedure, patient allergies, Proceduralist reviews: Patient aspiration risk what are the critical was assessed and or unexpected steps, equipment/assistance operative duration and available if necessary, anticipated blood Implants, devices and loss?, Anesthesia special equipment reviews: available and patient-specific functioning if concerns, if applicable applicable, Nursing team reviews: Any patient-specific concerns?, Relevant images and results properly labeled and correctly displayed if applicable Fire Risk Yes Assessment Completed Last Modified By: Afia Carlos RN 09/16/18 14:22:19 GALEN Ly Cheng Score Entry 1 Activity 2-Able to move four Circulation 2-BP + or - 20% extremities voluntarily systolic of on command preanesthetic level Consciousness 2-Fully Awake Respiratory 2-Able to breathe deeply and cough freely Saturation 2- Able to maintain O2 saturation >92% on room air Last Modified By: Afia Carlos RN 09/16/18 14:05:22 GALEN Ly Pain Assessment Entry 1 Pain Intensity Verbal Numeric Rating Is Pain Level Yes Scale Scored Scale (Adults) Acceptable? Pain Score (0-10) 0 Last Modified By: Afia Carlos RN 09/16/18 14:22:30 GALEN Ly Patient Debriefing Entry 1 Verify name of Skin Assessment Unchanged from procedure(s) performed After Pre-Procedure including site/side, N/A review specimens and how each is labeled, Discuss procedural problems and case improvements, Review luna concerns for further patient management Last Modified By: Afia Carlos RN 09/16/18 14:29:02 Case Comments Finalized By: Sherrie Rendon RN Document Signatures Signed By: Afia Carlos RN 09/16/18 14:31 Sherrie Rendon RN 09/17/18 07:37 Sherrie Rendon RN 09/17/18 07:38 Sherrie Rendon RN 09/17/18 07:39 Sherrie Rendon RN 09/17/18 07:39 Normal [facility] Post PACU Nursingon 09-17-20 Post PACU Nursing [facility] Endo PACU II Nursing Record Summary Primary Physician: Tristan Dickey MD Finalized Date/Time: 09/17/18 07:40:27 Pt. Name: SABRINA VELASQUEZ/Sex: 1990 Female Med Rec #: [id number] Physician: Financial #: [id number] Pt. Type: I Room/Bed: / Admit/Disch: 09/16/18 13:46:00 - 09/16/18 15:20:00 Institution: [facility] PACU II Case Times Entry 1 In PACU II 09/16/18 14:34:00 Ready for PACU II 09/16/18 14:49:00 Discharge Discharge from PACU 09/16/18 15:20:00 II Last Modified By: Rocio Turcios RN 09/16/18 15:26:17 [facility] PACU II Case Attendees Entry 1 Case Attendee Rocio Turcios RN Role Performed RN Last Modified By: Rocio Turcios RN 09/16/18 15:04:00 Finalized By: Sherrie Rendon RN Document Signatures Signed By: Sherrie Rendon RN 09/17/18 07:35 Sherrie Rendon RN 09/17/18 07:40 Normal [facility] PreOp Nursingon 09-17-2018 PreOp Nursing [facility]o PreOp Nursing Record Summary Primary Physician: Tristan Dickey MD Number: [id number] Finalized Date/Time: 09/17/18 07:36:42 Pt. Name: SABRINA VELASQUEZ Jose/Sex: 1990 Female Med Rec #: [id number] Physician: Financial #: [id number] Pt. Type: I Room/Bed: / Admit/Disch: 09/16/18 13:46:00 - 09/16/18 15:20:00 Institution: [facility] PreOp Case Times Entry 1 PreOp Case Times In Room Time 09/16/18 14:00:00 Out Room Time 09/17/18 14:19:00 Last Modified By: Sherrie Rendon RN 09/17/18 07:36:31 General Comments: OUT ROOM TIME ENTERED PER PATIENT IN ROOM TIME (OR NSG RECORD) KEILA MARTIN [facility] PreOp Case Attendees Entry 1 Case Attendee Andrew MARTIN , Altagracia Cohn RN Last Modified By: Altagracia Morales RN 09/16/18 14:00:58 Finalized By: Sherrie Rendon RN Document Signatures Signed By: Sherrie Rendon RN 09/17/18 07:36 Sherrie Rendon RN 09/17/18 07:36 Normal [facility] Patient Summaryon 09-16-2018 Patient Summary PATIENT DISCHARGE INSTRUCTIONS If you are having an emergency and are not able to reach your physician, CALL 911 or go to the nearest emergency room and take this document with you. [facility] 09/16/18 14:45 [address] [place] [address] PATIENT INFORMATION Name: SABRINA VELASQUEZ Address: [address] [place] [id number] Age: 28 Years Phone: [phone] : 1990 12:00 MRN: [id number] Sex: Female Race: White Ethnicity: Declined Admitted From: Clinic or [facility] Medical Service: Surgery Nurse Unit/Bed: (GALEN) ESSENCE N/A Admit Date: 09/16/2018 13:46 PCP: Omid Killian MD PHYSICIANS INVOLVED WITH CARE ------ Attending Physicians: Tristan Dickey MD - Surgery Admitting Physician: None found Primary Care Physician:Omid Killian MD, - Consults: None found ALLERGIES: No Known Allergies MEASUREMENTS: Last Charted: Weight: Admission 175.4 kg /386 lbs 11 oz ( 09/16/18 14:01:00 ) MEDICATIONS For: SABRINA VELASQUEZ This is your list of medication(s). Keep it with you at all times. Your doctor may have changed doses, add, held or stopped some of your medications. Please share this information with your family doctor. Carry this list of medications with you in case of an emergency. Update it when medications are stopped, doses are changed, or new medications (including bwax-ret-ibyqlvi products) are added. Ask your doctor if you have any questions. THESE ARE THE MEDICATIONS YOU SHOULD BE TAKING minocycline (Solodyn) By Mouth once a day. multivitamin 1 Tab(s) By Mouth once a day. MEDICATION CHANGE DETAILS (Not your Final Home Medication List) During the course of your visit, your home medication list was updated with the most current information. The details of those changes are shown below: NEW MEDICATIONS None UPDATED MEDICATIONS None UNCHANGED MEDICATIONS Other Medications minocycline (Solodyn) By Mouth once a day. Comment multivitamin 1 Tab(s) By Mouth once a day. Comment STOP TAKING THESE MEDICATIONS None DO NOT TAKE UNTIL YOU TALK TO YOUR DOCTOR None NON-MEDICATION PRESCRIPTION SCHEDULING PHONE NUMBER: SUICIDE HOTLINE: Your mental and emotional well-being are important. If you are in a mental health crisis, or having thoughts of suicide, please call the nationwide suicide hotline, anytime day or night, at 0-970-348-AHGN. Important information about accessing your health information through the [email or web address] patient portal If you initiated the self-registration process for [email or web address] during your stay, please check your personal email for an invitation to enroll in [email or web address] and complete the steps outlined in the email. If you would prefer to enroll while in the hospital, ask a member of your care team. We would be happy to assist you. If you have already enrolled in [email or web address], go to [email or web address] to login and access your health information. Thank you for choosing [email or web address]. PATIENT EDUCATION Esophagogastroduodeno scopy, Care After Refer to this sheet in the next few weeks. These instructions provide you with information about caring for yourself after your procedure. Your health care provider may also give you more specific instructions. Your treatment has been planned according to current medical practices, but problems sometimes occur. Call your health care provider if you have any problems or questions after your procedure. WHAT TO EXPECT AFTER THE PROCEDURE After your procedure, it is typical to feel: ???Soreness in your throat. ???Pain with swallowing. ???Sick to your stomach (nauseous). ???Bloated. ???Dizzy. ???Fatigued. HOME CARE INSTRUCTIONS ???Do not eat or drink anything until the numbing medicine (local anesthetic) has worn off and your gag reflex has returned. You will know that the local anesthetic has worn off when you can swallow comfortably. ???Do not drive or operate machinery until directed by your health care provider. ???Take medicines only as directed by your health care provider. SEEK MEDICAL CARE IF: ???You cannot stop coughing. ???You are not urinating at all or less than usual. SEEK IMMEDIATE MEDICAL CARE IF: ???You have difficulty swallowing. ???You cannot eat or drink. ???You have worsening throat or chest pain. ???You have dizziness or lightheadedness or you faint. ???You have nausea or vomiting. ???You have chills. ???You have a fever. ???You have severe abdominal pain. ???You have black, tarry, or bloody stools. This information is not intended to replace advice given to you by your health care provider. Make sure you discuss any questions you have with your health care provider. Document Released: 11/02/2013 Document Revised: 12/07/2015 Document Reviewed: 11/02/2013 Elsevier Interactive Patient Education ?2016 [employer] VIRUSES OR BACTERIA: WHAT'S GOT YOU SICK? Antibiotics only treat BACTERIAL infections. VIRAL ILLNESSES do not get better with antibiotics. When an antibiotic is not prescribed, ask your healthcare professional for tips on how to relieve symptoms and feel better. Usual Cause Illness Viruses Bacteria Antibiotic Needed? Cold/Runny Nose X NO Bronchitis/Chest Cold (in otherwise healthy adults) X NO Whooping Cough X Yes Flu (not complicated by pneumonia) X NO Strep Throat X Yes Sore Throat X NO Fluid in the Middle Ear (otitis media with effusion) X NO Urinary Tract Infection X Yes For more information visit: www.cdc.gov/getsmart PATIENT DISCHARGE INSTRUCTION Signature Page for: SABRINA VELASQUEZ Date/Time: 09/16/2018 14:45:51 A Clinician has explained the information on my discharge instructions and has provided me with a copy. My questions have been answered to my satisfaction. Patient Signature Date/Time Responsible Party Date/Time Relationship to Patient Clinician Signature Date/Time Normal [facility] ECG 12 leadon 06-14-2018 Atrial Rate Invalid Interpretation Code [facility] [place] Invalid Interpretation Code [facility] P-R Interval Invalid Interpretation Code [facility] Q-T Interval Invalid Interpretation Code [facility] Q-T Interval (corrected) Invalid Interpretation Code [facility] QRS Duration Invalid Interpretation Code [facility] QTC Calculation (Bezet) Invalid Interpretation Code [facility] R [place] Invalid Interpretation Code [facility] T [place] Invalid Interpretation Code [facility] Ventricular Rate Invalid Interpretation Code [facility] Vital Signs Date Time Vital Sign Value Performing Clinician Abbey ruiz 07-14-2020 13:00-0400 BP Diastolic 78 mm[Hg] Alicia Hudson [facility] 07-14-2020 13:00-0400 BP Systolic 123 mm[Hg] Alicia Hudson [facility] 07-14-2020 13:00-0400 Pulse (Heart Rate) 55 /min Alicia Hudson [facility] 07-14-2020 13:00-0400 Pulse Oximetry 100 % Alicia Hudson [facility] 07-14-2020 10:06-0400 Body Temperature 98.8 [degF] [facility]precious Hudson [facility] 07-14-2020 10:04-0400 BMI (Body Mass Index) 43.58 kg/m2 Alicia Hudson [facility] 07-14-2020 10:04-0400 Body weight 122.47 kg [facility]precious Hudson [facility] 07-14-2020 10:04-0400 Height 167.6 cm [facility]precious Hudson [facility] 07-14-2020 10:04-0400 Respiratory Rate 16 /min Alicia Hudson [facility] 06-14-2018 09:16-0400 BMI (Body Mass Index) 63.24 kg/m2 [facility] 06-14-2018 09:16-0400 BP Diastolic 84 mm[Hg] [facility] 06-14-2018 09:16-0400 BP Systolic 128 mm[Hg] [facility] 06-14-2018 09:16-0400 Height 167.6 cm [facility] 06-14-2018 09:16-0400 Pulse (Heart Rate) 64 /min [facility] 06-14-2018 09:16-0400 Pulse Oximetry 98 % [facility] 06-14-2018 09:16-0400 Weight 177.72 kg [facility] Encounters Encounter Date Encounter Type Care Provider Facility Start: 12-10-2023 End: 12-10-2023 ambulatory Not Available Start: 07-14-2020 End: 07-14-2020 Emergency department patient visit OMID KILLIAN [facility] Start: 07-14-2020 End: 07-14-2020 Emergency department patient visit Alicia Hudson Work Phone: [facility] Comment on above: Threatened (Primary Dx) Start: 12-13-2018 End: 12-13-2018 Patient encounter procedure Lauren Hagan [facility] D[facility]at[facility] Start: 06-14-2018 End: 06-14-2018 Patient encounter PROVIDER NOT IN SYSTEM [facility] Start: 06-14-2018 End: 06-14-2018 Office outpatient new 30 minutes Provider Not In [facility] Cardiology Start: 05-17-2018 End: 05-17-2018 Patient encounter VANESSA EDOUARD [facility] Start: 05-17-2018 End: 05-17-2018 Office outpatient new 30 minutes Vanessa Edouard Work Phone: [facility] D[facility] Procedures Date Procedure Procedure Detail Performing Clinician Start: 07-14-2020 Blood group typing Chris smallwood Work Phone: Start: 07-14-2020 PINK TOP Aliica Hudson Work Phone: Start: 07-14-2020 Us uterus 14 wk transabdl 11/30 gestat Chris Pate Work Phone: Start: 07-14-2020 Basic metabolic 2000 panel - Serum or Plasma Chris Pate Work Phone: Start: 07-14-2020 Blood type and Indirect antibody screen panel - Blood Chris Pate Work Phone: Start: 07-14-2020 Choriogonadotropin [Units/volume] in Serum or Plasma Chris Pate Work Phone: Start: 07-14-2020 Complete blood count with white cell differential, automated Chris Pate Work Phone: Start: 07-14-2020 Complete blood count with white cell differential, manual Chris Pate Work Phone: Start: 07-14-2020 LIGHT BLUE TOP Chris smallwood Work Phone: Start: 07-14-2020 LIGHT GREEN TOP Chris smallwood Work Phone: Start: 07-14-2020 End: 07-14-2020 RAINBOW DRAW Chris smallwood Work Phone: Start: 07-14-2020 Urinalysis Chris smallwood Work Phone: Start: 07-14-2020 Gardnerella vaginalis rRNA assay Chris Pate Work Phone: Plan of Treatment Date Care Activity Detail Author Start: 07-31-2020 Influenza vaccinatio n given Sequential Influenza Vaccine (#1) [facility] Start: 07-31-2018 Influenza vaccination [facility] Start: 07-31-2018 Influenza vaccinatio n given SEQUENTIAL INFLUENZA VACCINE (#1) [facility] Start: 07-19-2018 End: 07-19-2018 Ambulatory 07/19/2018 Office Visit Dermatology Vanessa Edouard Jr., DO [address] [place] [address] [phone] [facility] Start: 06-14-2018 End: 06-14-2018 Ambulatory 06/14/2018 Office Visit Cardiology System, Provider Not In [facility], Josefina Matthew MD [address] [place] [address] [phone] [facility] Start: 02-21-2010 Hepatitis C antibody , confirmatory test Hepatitis C Screening [facility] Start: 02-21-2007 HIV screening HIV Screening [facility] Start: 02-21-1995 History and physical examination, annual for health maintenance Wellness Visit [facility] Start: 1992 Screening for malign ant neoplasm of cervix PAP SMEAR [facility] Start: 1992 Tetanus [facility] End: 07-14-2020 Neisseria gonorrhoeae nucleic acid detection Chlamydia/Gonorrhoeae Amplified RNA Microbiology Routine Once for 1 Occurrences starting 07/14/2020 until 07/14/2020 [facility] Comment on above: Once for 1 Occurrenc es starting 07/14/2020 until 07/14/2020 Neisseria gonorrhoea e nucleic acid detection Chlamydia/Gonorrhoeae Amplified RNA Microbiology Routine 07/14/2020 11:20 AM EDT [facility] Payers Date Payer Category Payer Medicaid [id number] 2020 Medicaid [employer] MEDICA[employer] xxxxxxxxxxx 2020-Present xxxxxxxxxxx [id number] 2020 Medicaid [id number] 2019 Private Health Insurance [id number] 2017 Unknown [id number] 2017 Unknown [facility] HMO/BECKY/ BECKY PLUS/CHOICE PLUS xxxxxxxxx 2017-Present xxxxxxxxx [id number] 1992 Unknown [id number] 1992 Unknown 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 Labs and vitals were reviewed. Plan was discussed with the resident team. -Feels OK, pain is controlled -Abd soft, tasneem ttp 1)POD 1 s/p laparoscopic gastric bypass cont per protocol plan for home later today Logan Driscoll MD [phone] SURGERY PROGRESS NOTE SUBJECTIVE: Patient denies abd pain, N/V, F/C, CP, SOB, BLE swelling/pain/erythema, is ambulating, had caicedo out this AM pending void, never had insulin ggt, using IS, tolerating sierra CLD. OBJECTIVE: AF, nl HR, RR up to 33 on 2L NC, BPs wnl Vital Signs (Past 36 Hours) Last Charted Minimum Maximum Temperature 98.8 (03/01 00:37) 94.8 (02/28 11:35) 99.8 (02/28 17:30) Pulse 64 (03/01 00:37) 64 (03/01 00:37) 94 (02/28 13:50) Resp 17 (03/01 00:37) 11 (02/28 12:00 (more content not included)... Diagnosis Acne vulgaris - Primary Other acne Carbuncles Diagnosis Preop cardiovascular exam Pre-operative cardiovascular examination Smoking Tobacco use disorder Diagnosis Threatened Summary Purpose Family History No Family History Records FoundNo Family History Records FoundNo Family History Records FoundNo Family History Records Found Advance Directives No Advanced Directives Records FoundDocuments on File Type Date Recorded Patient Residential Builder Expl anation Advance Directives and Livashlee robledo Will 07/14/2020 11:09 AM History of Present Illness * Lauren Hagan MA - 12/13/2018 4:27 PM EST Warning of termination sent due to no shows on 07/19 and 12/13 in this encounter Hospital Course Note CLINICAL SUMMARY Please take this summary document to your follow up appointments. [facility] 09/16/18 14:45 [address] [place]. [address] PATIENT INFORMATION Name: SABRINA VELASQUEZ Address: [address] [place] [id number] Age: 28 Years Phone: [phone] : 1990 12:00 MRN: ([id number] Sex: Female Race: White Ethnicity: Declined Admitted From: Clinic or Phys Ofc Medical Service: Surgery Nurse Unit/Bed: (CO) W-ENDW N/A Admit Date: 09/16/2018 13:46 PCP: Omid Killian MD PHYSICIANS INVOLVED WITH CARE Attending Physicians: Tristan Dickey MD Surgery Admitting Physician: None found Primary Care Physician:Omid Killian MD, - Consults: None found Problems Active Obesity IBS (irritable bowel syndrome) GERD (gastroesophageal reflux disease) Murmur Allergies NKA Procedures Tonsillectomy (2009) MEASUREMENTS: Last (more content not included)... Note CLINICAL SUMMARY Please take this summary document to your follow up appointments. [facility] 03/01/19 18:42 [address] [place]. [address] PATIENT INFORMATION Name: SABRINA VELASQUEZ Address: [address] [place] [id number] Age: 29 Years Phone: [phone] : 1990 12:00 MRN: ([facility])-[id number] Sex: Female Race: White Ethnicity: Declined Admitted From: Clinic or Phys Ofc Medical Service: Surgery Nurse Unit/Bed: (CO) 7TWH 2F14-25 Admit Date: 02/28/2019 08:18 PCP: Omid Killian MD PHYSICIANS INVOLVED WITH CARE Attending Physicians: Marcellus Driscoll MD - Surgery Admitting Physician: Marcellus Driscoll MD - Surgery Primary Care Physician:Omid Killian MD, - Consults: None found Problems Active Morbid (severe) obesity due to excess calories Obesity IBS (irritable bowel syndrome) GERD (gastroesophageal reflux (more content not included)... Note Patient: SABRINA VELASQUEZ [id number] Age: 29 years Sex: Female : 1990 Associated Diagnoses: None Author: John Bustamante MD Supervising Physician Comments Documentation By: Resident Physician. Discharge Information Admit Date: 02/28/19 08:18 Discharge Date: 03/01/19 19:00 Discharge Disposition: Home 01 Reason For Visit: E66.01 Admitting Physician: Marcellus Driscoll MD Attending Physician: Marcellus Driscoll MD Primary Care Physician: Omid Killian MD Active/Final Diagnosis(es) Morbid Obesity. Hospital Course Hospital Course 29-year-old female with past medical history significant for morbid obesity, GERD, IBS, and heart murmur presented to [facility] on 02/28/2019 for an elective robotically assisted laparoscopic Milton-en-Y gastric bypass with by Purnima albarran an had an extensive preoperative workup. Patient tolerated the procedure well and was transferred to PACU in stable condition where she had an uneventful recovery. His then tra (more content not included)... Note Patient: SABRINA VELASQUEZ MRN : ([facility])-[id number] Age: 29 years Sex: Female : 1990 Associated Diagnoses: None Author: John Bustamante MD Supervising Physician Comments Patient was seen and examined at 11am Below physical findings were confirmed. Labs and vitals were reviewed. Plan was discussed with the resident team. -Feels OK, pain is controlled -Abd soft, tasneem ttp 1)POD 1 s/p laparoscopic gastric bypass cont per protocol plan for home later today Logan Driscoll MD [phone] SURGERY PROGRESS NOTE SUBJECTIVE: Patient denies abd pain, N/V, F/C, CP, SOB, BLE swelling/pain/erythema, is ambulating, had caicedo out this AM pending void, never had insulin ggt, using IS, tolerating sierra CLD. OBJECTIVE: AF, nl HR, RR up to 33 on 2L NC, BPs wnl Vital Signs (Past 36 Hours) Last Charted Minimum Maximum Temperature 98.8 (03/01 00:37) 94.8 (02/28 11:35) 99.8 (02/28 17:30) Pulse 64 (03/01 00:37) 64 (03/01 00:37) 94 (02/28 13:50) Resp 17 (03/01 00:37) 11 (02/28 12:00 (more content not included)... Note [facility] GI Patient Name: Sabrina Velasquez Procedure Date: 09/16/2018 1:40 PM Date of : 1990 Age: 28 Gender: Female Procedure: Upper GI endoscopy Indications: Suspected esophageal reflux, Preoperative assessment for bariatric surgery to treat morbid obesity Providers: TRISTAN DICKEY MD , KASIE CAMACHO CRNA, CHARBEL STEWART MD Referring MD: OMID KILLIAN MD Requesting Provider: Medicines: Monitored Anesthesia Care Complications: No immediate complications. Procedure: Pre-Anesthesia Assessment: - Prior to the procedure, a History and Physical was performed, and patient medications, allergies and sensitivities were reviewed. The patient's tolerance of previous anesthesia was reviewe (more content not included)... Note Patient: SABRINA VELASQUEZ MRN: [facility])-[id number] Age: 28 years Sex: Female : 1990 Associated Diagnoses: None Author: Kasie Camacho CRNA Supervising Physician Comments Documentation By: Certified Registered Nurse Cartography/Mapping Technician. Subjective Subjective: Patient participated in the evaluation: Yes. Nausea: not present. Vomiting: not present. Pain: acceptable pain control. Objective Objective: Vital Signs: Last Charted Vital Signs Temperature: 97.8 (09/16 14:05) Pulse: 96 (09/16 14:05) Respiration: 18 (09/16 14:05) BP: 129/81 (09/16 14:05) Pulse Ox: 98 (09/16 14:05) Oxygen Delivery: Room air (09/16 14:05) Pain Score: 0 (09/16 14:05) . Mental Status: Unchanged from preanesthesia assessment. Postoperative hydration: adequate. Assessment Assessment: Post anesthetic condition: no anesthetic complications, the patient is doing well, pain is adequately controlled. Airway patent: yes. Plan Plan: Postanesthesia Plan: post anesthetic surveillance concluded. Note Patient: SABRINA VELASQUEZ MRN : [facility])-[id number] Age: 29 years Sex: Female : 1990 Associated Diagnoses: None Author: Charbel Stewart DO Subjective Subjective: Patient participated in the evaluation: Yes. Nausea: not present. Vomiting: not present. Pain: acceptable pain control. Objective Objective: Vital Signs: Last Charted Vital Signs Temperature: 97.8 (02/28 14:06) Pulse: 73 (02/28 14:45) Respiration: 25 (02/28 14:45) BP: 114/71 (02/28 14:45) Pulse Ox: 93 (02/28 14:15) Oxygen Delivery: Nasal cannula (02/28 14:45) O2 Device Flow: 2 L/min Pain Score: 6 (02/28 14:45) . Mental Status: Unchanged from preanesthesia assessment. Postoperative hydration: adequate. Assessment Assessment: Airway patent: yes. Plan Plan: Postanesthesia Plan: post anesthetic surveillance concluded. Note DICTATED BY:MARCELLUS RENTERIA MD SERVICE DATE:02/28/2019 PREOPERATIVE DIAGNOSIS: Morbid obesity. POSTOPERATIVE DIAGNOSIS: Morbid obesity. PROCEDURE: 1. Robotically-assisted laparoscopic Milton-en-Y gastric bypass procedure. 2. Evaluation of flow through graft (Firefly). SURGEON: Logan Driscoll MD RESIDENT SURGEON: John Bustamante MD ANESTHESIA: General. ESTIMATED BLOOD LOSS: 20 mL. INDICATIONS: The patient is a 29-year-old female with morbid obesity. She has a body mass index of 61. She does not yet have comorbid conditions, but is morbidly obese. I discussed with her the indication for weight loss surgery as well as the options for weight loss surgery including the option of a gastric bypass and a sleeve gastrectomy. She wishes to proceed with gastric bypass. I discussed with her the risks of bleeding as well as the risk of anastomotic leak and others. I also discussed the necessary lifestyle and dietary modifications required to be successful after weight loss surgery. She s (more content not included)... Procedure Findings Note [facility] Patient Name: Sabrina Velasquez Procedure Date: 09/16/2018 1:40 PM Date of : 1990 Age: 28 Gender: Female Procedure: Upper GI endoscopy Indications: Suspected esophageal reflux, Preoperative assessment for bariatric surgery to treat morbid obesity Providers: TRISTAN DICKEY MD , KASIE CAMACHO CRNA, CHARBEL STEWART MD Referring MD: OMID KILLIAN MD Requesting Provider: Medicines: Monitored Anesthesia Care Complications: No immediate complications. Procedure: Pre-Anesthesia Assessment: - Prior to the procedure, a History and Physical was performed, and patient medications, allergies and sensitivities were reviewed. The patient's tolerance of previous anesthesia was reviewe (more content not included)... Note Patient: SABRINA VELASQUEZ MRN: [facility])-[id number] Age: 28 years Sex: Female : 1990 Associated Diagnoses: None Author: Kasie Camacho CRNA Supervising Physician Comments Documentation By: Certified Registered Nurse Cartography/Mapping Technician. Subjective Subjective: Patient participated in the evaluation: Yes. Nausea: not present. Vomiting: not present. Pain: acceptable pain control. Objective Objective: Vital Signs: Last Charted Vital Signs Temperature: 97.8 (09/16 14:05) Pulse: 96 (09/16 14:05) Respiration: 18 (09/16 14:05) BP: 129/81 (09/16 14:05) Pulse Ox: 98 (09/16 14:05) Oxygen Delivery: Room air (09/16 14:05) Pain Score: 0 (09/16 14:05) . Mental Status: Unchanged from preanesthesia assessment. Postoperative hydration: adequate. Assessment Assessment: Post anesthetic condition: no anesthetic complications, the patient is doing well, pain is adequately controlled. Airway patent: yes. Plan Plan: Postanesthesia Plan: post anesthetic surveillance concluded. Note Patient: SABRINA VELASQUEZ MRN : [facility])-[id number] Age: 29 years Sex: Female : 1990 Associated Diagnoses: None Author: Charbel Stewart DO Subjective Subjective: Patient participated in the evaluation: Yes. Nausea: not present. Vomiting: not present. Pain: acceptable pain control. Objective Objective: Vital Signs: Last Charted Vital Signs Temperature: 97.8 (02/28 14:06) Pulse: 73 (02/28 14:45) Respiration: 25 (02/28 14:45) BP: 114/71 (02/28 14:45) Pulse Ox: 93 (02/28 14:15) Oxygen Delivery: Nasal cannula (02/28 14:45) O2 Device Flow: 2 L/min Pain Score: 6 (02/28 14:45) . Mental Status: Unchanged from preanesthesia assessment. Postoperative hydration: adequate. Assessment Assessment: Airway patent: yes. Plan Plan: Postanesthesia Plan: post anesthetic surveillance concluded. Note DICTATED BY:MARCELLUS RENTERIA MD SERVICE DATE:02/28/2019 PREOPERATIVE DIAGNOSIS: Morbid obesity. POSTOPERATIVE DIAGNOSIS: Morbid obesity. PROCEDURE: 1. Robotically-assisted laparoscopic Milton-en-Y gastric bypass procedure. 2. Evaluation of flow through graft (Firefly). SURGEON: Logan Driscoll MD RESIDENT SURGEON: John Bustamante MD ANESTHESIA: General. ESTIMATED BLOOD LOSS: 20 mL. INDICATIONS: The patient is a 29-year-old female with morbid obesity. She has a body mass index of 61. She does not yet have comorbid conditions, but is morbidly obese. I discussed with her the indication for weight loss surgery as well as the options for weight loss surgery including the option of a gastric bypass and a sleeve gastrectomy. She wishes to proceed with gastric bypass. I discussed with her the risks of bleeding as well as the risk of anastomotic leak and others. I also discussed the necessary lifestyle and dietary modifications required to be successful after weight loss surgery. She s (more content not included)... Discharge Instructions * Attachments The following attachments cannot be sent through Care Everywhere. * Miscarriage: Threatened (Tajik) documented in this encounter Additional Source Comments Assessment & Plan Note - Josefina Tracy MD - 06/14/2018 9:36 AM EDTAssessment & Plan Note - Josefina Tracy MD - 06/14/2018 9:36 AM EDT Miscellaneous Notes (unrecog nized section and content) Associated Problem(s): Preop cardiovascular exam Ms. Velasquez is to undergo an intermediate risk surgical procedure. Presently there are no high risk cardiovascular conditions including decompensated heart failure, unstable angina or acute coronary syndrome, severe aortic stenosis, or uncontrolled tachyarrhythmia. The patient is able to perform >6 METS of physical activity without chest pain or significant dyspnea. The patient is at acceptable risk for angela-operative cardiac complications. RCRI score of 0 , 0.4% risk of major adverse cardiac events DVT & GI prophylaxis per the primary team Associated Problem(s): Smoking Smoking: Chronic smoking for many years with nicotine dependence. I discussed extensively with patient about quitting smoking including behavior modification and chemical dependence. Informed of pharmacologic and non-pharmacologic methods of management of addictive behavior. I discussed smoking related side effects and how detrimental is it for patient's health. I discussed cessation strategies, including nicotine gum, nicotine patch, , and use of chantix. in this encounter ED Attestation: I have reviewed the Advanced Practice Provider's (TASNEEM's) documention. In addition, I have personally introduced myself to the patient, and have taken her history and performed an examination. I agree with the physical findings, management, clinical impression and disposition. In brief, she is a 30 y.o. female who presents with a chief complaint of Vaginal Bleeding. After my evaluation, I noticed patient seems upset. Was able to have a long discussion with patient about results: Labs and imaging and need for RhoGam. After long discussion patient understood discharge plan and need for follow-up. Abdomen soft nontender nondistended Alicia Hudson MD ED Attending Physician [facility] documented in this encounter INFORMATION SOURCE (unrecogn ized section and content) DATE CREATED AUTHOR 06/15/2018 [facility] DATE CREATED AUTHOR AUTHOR'S ORGANIZ ATION 08/09/2019 [facility] DATE CREATED AUTHOR AUTHOR'S ORGANIZ ATION 12/27/2020 [facility] DATE CREATED AUTHOR AUTHOR'S ORGANIZ ATION 12/11/2023 [facility] EPIC Reason for Visit (unrecogniz ed section and content) Reason Comments Vaginal Bleeding Chris Pate PA-C - 07/14/2020 10:43 AM EDTWDorinda roblero RN - 07/14/2020 10:07 AM EDTWDorinda roblero RN - 07/14/2020 10:04 AM EDT ED Notes (unrecognized secti on and content) ED PROVIDER NOTE [facility] NAME: Sabrina Velasquez AGE: 30 y.o. : 1990 VISIT DATE: 07/14/2020 CSN: [id number] PCP: Omid Killian MD Clinical Impression: 1. Threatened ED Disposition ED Disposition Condition Comment Discharge Stable Sabrina Velasquez discharged to home/self care in stable condition. Follow-up Information 1. Roni Clemens MD. Specialty: Obstetrics/Gynecology Why: For recheck of today's symptoms [address] [facility] [id number] 2. [facility]. Specialty: Emergency Medicine Why: As needed, If symptoms worsen [address] [facility] [address] Contact information for after-discharge care Follow-up information has not been specified. MDM Number of Diagnoses or Management Options Threatened : This is a 30-year-old female presents the ED with vaginal bleeding in . Patient reports she believes she is about 6 weeks and has some vaginal bleeding since yesterday. Blood type is A-, patient was given RhoGam in ED. hCG is 438. Vaginitis probes were negative. CBC within normal limits. Ultrasound shows a normal study, positive beta hCG this is of unknown origin, serial beta hCGs needed to differentiate between extremely early , spontaneous , ectopic gestation with history spontaneous of has believe most likely. Patient does not have any abdominal pain, low concerns for ectopic at this point clinically. Patient has appointment with BRAKE REPAIRER on Thursday. Considered implantation bleeding, threatened , complete/incomplete/inevitable/septic , ectopic , cervicitis, trauma, gestational trophoblastic disease, cervical/vaginal lesions, blighted ovum, abruption placenta, placenta previa, vasa previa, uterine rupture, bleeding disorder. Currently stable vital signs with no significant hemorrhage. Os currently closed. Will dc at this time with instructions regarding pelvic rest, no strenuous activity, or intercourse. Return or follow up with OB for increased pain, bleeding, fever or passage of tissue. Chief Complaint Patient presents with Vaginal Bleeding HPI This is a 30-year-old female with no pertinent past medical history presents ED with vaginal bleeding. Patient states that she is about 6 weeks and began having some vaginal bleeding yesterday. She states she had some bleeding yesterday evening and then it stopped but has recurred this morning. She states it is pink and stringy. Patient states that she just noticed it when she wipes. Patient denies any dysuria or hematuria. Patient states she does feel a bit of pelvic pressure but no abdominal pain or cramping, no back pain. She reports she is . She reports she is scheduled to see her BRAKE REPAIRER Dr. Clemens next week. Patient denies any vaginal discharge prior to the bleeding. Patient states she is just worried given the vaginal bleeding in and wants to make sure everything is okay. She denies any other ill symptoms recently. History reviewed. No pertinent past medical history. History reviewed. No pertinent surgical history. History reviewed. No pertinent family history. Social History Socioeconomic History Marital status: Single Spouse name: Not on file Number of children: Not on file Years of education: Not on file Highest education level: Not on file Occupational History Not on file Social Needs Financial resource strain: Not on file Food insecurity Worry: Not on file Inability: Not on file Transportation needs Medical: Not on file Non-medical: Not on file Tobacco Use Smoking status: Current Some Day Smoker Smokeless tobacco: Never Used Substance and Sexual Activity Alcohol use: No Drug use: No Sexual activity: Not on file Lifestyle Physical activity Days per week: Not on file Minutes per session: Not on file Stress: Not on file Relationships Social connections Talks on phone: Not on file Gets together: Not on file Attends temple service: Not on file Active member of club or organization: Not on file Attends meetings of clubs or organizations: Not on file Relationship status: Not on file Other Topics Concern Not on file Social History Narrative Not on file Previous Medications Medication Sig adapalene-benzoyl peroxide (EPIDUO FORTE) 0.3-2.5 % GlwP Apply 1 application topically daily. minocycline (SOLODYN) 105 mg Tb24 Take 105 mg by mouth daily. No Known Allergies Review of Systems Constitutional: Negative for chills and fever. Respiratory: Negative for cough and shortness of breath. Cardiovascular: Negative for chest pain and palpitations. Gastrointestinal: Negative for abdominal pain, diarrhea, nausea and vomiting. Genitourinary: Positive for vaginal bleeding. Negative for dysuria, flank pain and vaginal discharge. Musculoskeletal: Negative for back pain and neck pain. Skin: Negative for color change and rash. Neurological: Negative for dizziness, syncope, weakness, light-headedness and headaches. All other systems reviewed and are negative. Positives and pertinent negatives as per HPI. All other systems were reviewed and are negative. Patient Vitals for the past 24 hrs: BP Temp Pulse Resp SpO2 Height Weight 07/14/20 1300 123/78 (!) 55 100 % 07/14/20 1230 127/66 (!) 54 99 % 07/14/20 1215 130/66 62 100 % 07/14/20 1006 136/83 98.8 F (37.1 C) 88 97 % 07/14/20 1004 16 5' 6 122.5 kg (270 lb) Physical Exam Vitals signs and nursing note reviewed. Exam conducted with a manager dairy present. Constitutional: Appearance: Normal appearance. HENT: Head: Normocephalic and atraumatic. Eyes: Extraocular Movements: Extraocular movements intact. Conjunctiva/sclera: Conjunctivae normal. Pupils: Pupils are equal, round, and reactive to light. Cardiovascular: Rate and Rhythm: Normal rate and regular rhythm. Pulses: Normal pulses. Heart sounds: Normal heart sounds. Pulmonary: Effort: Pulmonary effort is normal. Breath sounds: Normal breath sounds. No wheezing, rhonchi or rales. Abdominal: General: Abdomen is flat. Tenderness: There is no abdominal tenderness. There is no guarding or rebound. Genitourinary: Vagina: Bleeding (faint amount of dark red blood noted in vaginal vault) present. Cervix: Normal. Adnexa: Right adnexa normal and left adnexa normal. Skin: General: Skin is warm. Capillary Refill: Capillary refill takes less than 2 seconds. Neurological: General: No focal deficit present. Mental Status: She is alert and oriented to person, place, and time. Psychiatric: Mood and Affect: Mood normal. Behavior: Behavior normal. Laboratory & Radiographic Imaging (if done): Results for orders placed or performed during the hospital encounter of 07/14/20 Vaginitis DNA Probes Result Value Ref Range Trichomonas vaginalis Negative Negative Gardnerella vaginalis Negative Negative Olga Species Negative Negative BMP Result Value Ref Range Sodium 143 135 - 145 mmol/L Potassium 3.9 3.5 - 5.1 mmol/L Chloride 113 (H) 98 - 108 mmol/L Bicarbonate 28 21 - 32 mmol/L Anion Gap 6 (L) 10 - 20 mmol/L Glucose 71 65 - 99 mg/dL BUN 8 8 - 25 mg/dL Creatinine 0.64 0.40 - 1.10 mg/dL eGFR 122 >=60 mL/min/1.73 m2 BUN/Creatinine Ratio 12.5 10.0 - 20.0 Calcium 9.0 8.4 - 10.2 mg/dL hCG, Blood, QUANTitative Result Value Ref Range hCG Quant 438 (H) 0 - 5 mIU/mL Urinalysis Result Value Ref Range Color, Urine Yellow Colorless, Yellow Clarity, Urine Clear Clear Specific Harper 1.011 1.005 - 1.025 pH, Urine 7.0 5.0 - 7.0 Protein, Urine Negative Negative mg/dL Glucose, Urine Negative Negative mg/dL Ketones, Urine Negative Negative mg/dL Bilirubin, Urine Negative Negative Urobilinogen, Urine <2.0 <2.0 mg/dL Blood, Urine Moderate (A) Negative Nitrite, Urine Negative Negative Leukocyte Esterase, Urine Trace (A) Negative WBCs, Urine 2 0 - 5 /hpf RBCs, Urine 2 0 - 3 /hpf Bacteria, Urine None Seen None Seen /hpf Squamous Epithelial 5 (H) 0 - 4 /hpf Mucus, Urine Rare None Seen, Rare /lpf Type and Screen Result Value Ref Range ABORh A Negative Antibody Screen Negative Specimen Expires 07/17/2020 23:59 EST CBC Auto Differential Result Value Ref Range WBC 6.67 4.50 - 11.00 K/mcL RBC 4.47 4.00 - 5.20 M/mcL Hemoglobin 13.6 12.0 - 16.0 g/dL Hematocrit 39.2 36.0 - 46.0 % MCV 87.7 80.0 - 100.0 fL MCH 30.4 26.0 - 34.0 pg MCHC 34.7 31.0 - 37.0 g/dL Platelets 151 150 - 400 K/mcL RDW - CV 12.3 11.6 - 14.8 % MPV 11.8 9.4 - 12.4 fL Neutrophils 61.4 % Lymphocytes 29.2 % Monocytes 7.2 % Eosinophils 1.5 % Basophils 0.4 % IG Percent 0.30 % Neutrophils Abs 4.09 1.70 - 7.00 K/mcL Lymphocytes Abs 1.95 0.90 - 4.00 K/mcL Monocytes Abs 0.48 0.30 - 0.90 K/mcL Eosinophils Abs 0.10 0.00 - 0.50 K/mcL Basophils Abs 0.03 0.00 - 0.30 K/mcL IG Absolute 0.02 0.00 - 0.30 K/mcL Nucleated RBC 0.0 % Nucleated RBC Abs 0.00 0.00 - 0.00 K/mcL ABORH Verification Result Value Ref Range ABORh A Negative Verification of ABORH ABO/Rh Verification US Obstetric 1st Trimester With Transvaginal, Transabdominal And Color Flow Single Fetus Final Result 1. Normal study. 2. With a positive beta hCG, this is a of unknown location. Clinical correlation including serial beta hCG levels is needed differentiate the possibilities which include extremely early , spontaneous of recent , or ectopic gestation which is not directly visualized. With a history of bleeding, spontaneous of is believed most likely. [facility] Workstation ID: [id number] Procedures The patient has been informed that they may have pre-hypertension or hypertension based on a blood pressure reading in the Emergency Department. I recommend that the patient call the primary care provider listed on their discharge instructions or a physician of their choice as soon as possible to arrange follow-up in the next 4 weeks for further evaluation of possible pre-hypertension or hypertension. . Chris Pate PA-C [facility] Chris Pate PA-C 07/14/20 1340 Bed: 24 Expected date: Expected time: Means of arrival: Comments: triage Pt states I am currently 6 weeks and having vaginal bleeding that started yesterday morning. It is light pink and stringy documented in this encounter FOR RECORDS PERTAINING TO PATIENTS WHO ARE OR HAVE BEEN ENROLLED IN A CHEMICAL DEPENDENCY/SUBSTANCEABUSE PROGRAM, SOME INFORMATION MAY BE OMITTED. This clinical summary was aggregated from multiple sources. Caution should be exercised in using it in the provision of clinical care. This summary normalizes information from multiple sources, and as a consequence, information in this document may materially change the coding, format and clinical context of patient data. In addition, data may be omitted in some cases. CLINICAL DECISIONS SHOULD BE BASED ON THE PRIMARY CLINICAL RECORDS. [facility] [email or web address] [facility]. provides no warranty or guarantee of the accuracy or completeness of information in this document.
== END 2023-12-30 14:13 | disposition home or self-care (01) ==
LOC: LAB 14:16
PROVIDERS: Visit Provider Obstetrics & Gynecology
DX: Z34.80 Encounter for supervision of other normal pregnancy, unspecified trimester (principal)
CPT/HCPCS: 36415

== ENCOUNTER 2024-01-27 20:57 | Outpatient (REF) | payer OTHER, SELFPAY ==
--- OUTSIDE RECORDS SUMMARY | 2024-01-27 21:10 | XMS_ITS | CCD ---
Author Name Unknown Address [address] [place] [address] Organization [facility] Care Team Providers Care Cable Coverer Name Role Phone Omid Killian Unavailable Unavailabl e VANESSA EDOUARD Unavailable Unavailable KILLIAN, OMID SANDADI Unavailable Unavailabl e SYSTEM, PROVIDER NOT IN Unavailable Unavaila ble TRACY, NOWWAR GHAZI YASIN Unavailable Unav ailable LOGAN ZAMAN Unavailable Unavailabl e KILLIAN, OMID SANDADI Unavailable Unavailabl e Killian, Omid Sandadi Primary Care Provider JAYLA KILLIANESH MICHELLE Primary Care Unavailabl ALICIA Ramos Attending Unavailable LIA BENAVIDES Attending Unavailable Medications Current Medications Medication Drug [...] Test Name Value Interpretation Reference Range Facility [facility] VERIFICATIONon 020 ABO and Rh group Nom (Bld) A Negative [facility] ABO and Rh group Nom (Bld) ABO/Rh Verification [facility] BMPon 07-14-2020 Anion gap [Moles/Vol] 6 mmol/L Low 10 - 20 mmol/L [facility] Calcium [Mass/Vol] 9.0 mg/dL 8.4 - 10. 2 mg/dL [facility] Chloride [Moles/Vol] 113 mmol/L High 98 - 108 mmol/L [facility] Creatinine [Mass/Vol] 0.64 mg/dL 0.40 - 1.10 [facility] GFR/1.73 sq M predicted among non-blacks MDRD (S/P/Bld) [Vol rate/Area] The eGFR should be used for monitoring renal function only and not for medication dosing. [facility] GFR/1.73 sq M.predicted CKD-EPI (S/P/Bld) [Vol rate/Area] 122 >=60 mL/min/1.73 m2 [facility] Glucose [Mass/Vol] 71 mg/dL 65 - 99 mg/dL [facility] [Moles/Vol] 28 mmol/L 21 - 32 mmol/L [facility] Potassium [Moles/Vol] 3.9 mmol/L 3.5 - 5.1 mmol/L [facility] Sodium [Moles/Vol] 143 mmol/L 135 - 145 mmol/L [facility] Urea nitrogen [Mass/Vol] 8 mg/dL 8 - 25 mg/dL [facility] Urea nitrogen/Creatinine [Mass ratio] 12.5 mg/mg [facility] CBC WITH AUTO DIFFERENTIALon 07-14-2020 Basophils (Bld) [#/Vol] 0.03 10*3/uL [facility] Basophils/100 WBC (Bld) 0.4 % [facility] Eosinophils (Bld) [#/Vol] 0.10 10*3/uL [facility] Eosinophils/100 WBC (Bld) 1.5 % [facility] Erythrocyte distribution width (RBC) [Entitic vol] 12.3 % 11.6 - 14.8 % [facility] Hematocrit (Bld) [Volume fraction] 39.2 % 36 - 46 % [facility] Hemoglobin (Bld) [Mass/Vol] 13.6 g/dL 12 - 16 g/dL [facility] Immature granulocytes (Bld) [#/Vol] 0.02 10*3/uL [facility] Immature granulocytes/100 WBC (Bld) 0.30 % [facility] Comment on above: The IG parameter is the percentage of metamyelocytes, myelocytes and promyelocytes. An immature granulocyte count (IG) of 1% or more suggests the possibility of infection, an IG count of 3% is very likely related to an infection. Lymphocytes (Bld) [#/Vol] 1.95 10*3/uL [facility] Lymphocytes/100 WBC (Bld) 29.2 % [facility] MCH (RBC) [Entitic mass] 30.4 pg 26 - 34 pg [facility] MCHC (RBC) [Mass/Vol] 34.7 g/dL 31 - 37 g/dL [facility] MCV (RBC) [Entitic vol] 87.7 fL 80 - 100 fL [facility] Monocytes (Bld) [#/Vol] 0.48 10*3/uL [facility] Monocytes/100 WBC (Bld) 7.2 % [facility] Neutrophils (Bld) [#/Vol] 4.09 10*3/uL [facility] Neutrophils/100 WBC (Bld) 61.4 % [facility] Nucleated RBC (Bld) [#/Vol] 0.00 10*3/uL [facility] Nucleated RBC/100 WBC (Bld) [Ratio] 0.0 % [facility] Platelet mean volume (Bld) [Entitic vol] 11.8 fL 9.4 - 12.4 fL [facility] Platelets (Bld) [#/Vol] 151 10*3/uL [facility] RBC (Bld) [#/Vol] 4.47 10*6/uL [facility] WBC (Bld) [#/Vol] 6.67 10*3/uL [facility] ealth Otheron 07-14-2020 Extra Tube Hold for add-ons. [facility] Comment on above: Auto resulted. Interpretation and review of laboratory results Abnormal [facility] Type and Screenon 07-14-2020 ABO and Rh group Nom (Bld) A Negative [facility] Blood group antibody screen Ql Negative [facility] Specimen Expires 07/17/2020 23:59 EST [facility] URINALYSISon 07-14-2020 Bacteria Auto Ql (U) None Seen None Seen /hpf [facility] Bilirubin Ql (U) Negative Negative [facility] th Clarity Refractometry automated (U) Clear Clear [facility] Color (U) Yellow Colorless, Yellow [facility] Epithelial cells.squamous Auto (Urine sed) [#/Area] 5 High [facility] Glucose Auto test strip (U) [Mass/Vol] Negative Negative mg/dL [facility] Hemoglobin Auto test strip Ql (U) Moderate Abnormal Negative [facility] Interpretation and review of laboratory results Abnormal [facility] Ketones (U) [Mass/Vol] Negative Negative mg/dL [facility] Leukocyte esterase Auto test strip Ql (U) Trace Abnormal Negative [facility] Mucus Auto (Urine sed) [#/Area] Rare None Seen, Rare /lpf [facility] Nitrite Auto test strip Ql (U) Negative Negative [facility] pH (U) 7.0 [pH] [facility] Protein (U) [Mass/Vol] Negative Negative mg/dL [facility] RBC Auto (Urine sed) [#/Area] 2 [facility] Specific gravity (U) [Rel density] 1.011 [facility] Urobilinogen (U) [Mass/Vol] <2.0 <2.0 mg/dL [facility] WBC Auto (Urine sed) [#/Area] 2 [facility] Microscopic examination is performed on all urinalysis samples and only positive findings are reported. The test for blood on the chemical analytic portion of urinalysis may also be positive due to hemoglobinuria and myoglobinuria and if red blood cells are present they are quantified by microscopic examination. [facility] OB 1ST TRIMESTER WITH TRA NSVAGINAL TRANSABDOMINAL [...] bleeding, spontaneous of is believed most likely. [facility] Workstation ID: [id number] Dictated by: SHAY FERNANDEZ on Sat Jul 14, 2020 12:00:51 PM EDT Transcribed by: PREETI VILLALTA on Sat Jul 14, 2020 12:07:08 PM EDT Finalized by: SHAY FERNANDEZ on Sat Jul 14, 2020 12:57:25 PM EDT Normal [facility] Comment on above: Order Comment: Injur y/Trauma [...] limits. No free peritoneal fluid is seen. [facility] 1. Normal study. 2. With a positive beta hCG, this is a of unknown location. Clinical correlation including serial beta hCG levels is needed differentiate the possibilities which include extremely early , spontaneous of recent , or ectopic gestation which is not directly visualized. With a history of bleeding, spontaneous of is believed most likely. [facility] Workstation ID: [id number] [facility] Interface[facility]/14/2020 1:00 PM EDT EXAMINATION: ULTRASOUND [...] bleeding, spontaneous of is believed most likely. [facility] Workstation ID: [id number] [facility] VAGINITIS DNA PROBESon 07-14 Olga sp DNA Probe+sig amp Ql (Vag fld) Negative Negative [facility] G. vaginalis DNA Probe+sig amp Ql (Vag fld) Negative Negative [facility] Interpretation and review of laboratory results Normal [facility] T. vaginalis DNA Probe+sig amp Ql (Vag fld) Negative Negative [facility] hCG, Blood, QUANTitativeon 0 07-14-2020 Beta HCG ( test) Ql (U) Males and non females: <5 mIU/mL Females during : 3-4 weeks 9-130 mIU/mL 4-5 weeks 75-2600 mIU/mL 5-6 weeks 850-20,800 mIU/mL 6-7 weeks 4000-100,200 mIU/mL 7-12 weeks 11,500-289,000 mIU/mL 12-16 weeks 18,300-137,000 mIU/mL 16-29 weeks 1,400-53,000 mIU/mL 29-41 weeks 940-60,000 mIU/mL [facility] HCG Qn 438 m[IU]/mL High [facility] Basic Metabolic Panelon 04-0 Anion gap [Moles/Vol] 7.0 mmol/L Normal 6.0-18.0 [facility] Comment on above: Performed By: #### 2 4321-2, 92478-0, 51874-2d5, 1987- ####[facility] [address] [place], [place] Calcium [Mass/Vol] 8.6 mg/dL Low 8.9-10.3 [facility] Comment on above: Performed By: #### 2 4321-2, 85981-1, 46001-3i1, 1988-03 ####[facility] [address], [place] Chloride [Moles/Vol] 107 mmol/L Normal 98-107 [facility] Comment on above: Performed By: #### 2 1-2, 13115-8, 72679-6v5, 1988-03 ####[facility] [address], [place] CO2 [Moles/Vol] 24 mmol/L Normal 22-32 [facility] Comment on above: Performed By: #### 2 1-2, 80463-0, 19426-1l5, 1988-03 ####[facility] [address], [place] Creatinine [Mass/Vol] 0.67 mg/dL Normal 0.60-1.30 [facility] Comment on above: Performed By: #### 2 4320-2, 48813-7, 49963-8x7, 1988-03 ####[facility] [address], [place] Glucose [Mass/Vol] 105 mg/dL High 70-99 [facility] Comment on above: Result Comment: U pdated ADA Reference Range A normal fasting glucose concentration is less than 100 mg/dL. An impaired fasting glucose concentration is 100-125 mg/dL. A provisional diagnosis of diabetes mellitus can be made when a fasting glucose concentration is greater than 125 mg/dL. Performed By: #### 2 4320-2, 20987-9, 41835-9k0, 1988-03 ####[facility] [address], [place] Potassium [Moles/Vol] 4.1 mmol/L Normal 3.6-5.1 [facility] Comment on above: Performed By: #### 2 1-2, 10445-3, 38057-0q6, 1988-03 ####[facility] [address], [place] Sodium [Moles/Vol] 138 mmol/L Normal 136-145 [facility] Comment on above: Performed By: #### 2 4320-2, 22767-6, 24022-8d1, 1988-03 ####[facility] [address], [place] Urea nitrogen (BldV) [Mass/Vol] 8 mg/dL Normal 8-20 [facility] Comment on above: Performed By: #### 2 4321-2, 32576-8, 72617-0i1, 1988-03 ####[facility] [address], [place] C-Reactive Proteinon 019 CRP [Mass/Vol] 3.2 mg/dL High <1.0 [facility] Comment on above: Performed By: #### 2 4321-2, 38212-7, 85216-9c9, 1988-03 ####[facility] [address], [place] CBCon 03-01-2019 Erythrocyte distribution width (RBC) [Entitic vol] 14.3 % Normal 11.0-14.8 [facility] Comment on above: Performed By: #### 2 7-0 ####[place] [address], [place] Hematocrit (Bld) [Volume fraction] 37.5 % Normal 35.0-45.0 [facility] Comment on above: Performed By: #### 2 7-0 ####[facility] [address], [place] Hemoglobin (Bld) [Mass/Vol] 12.5 g/dL Normal 12.0-16.0 [facility] Comment on above: Performed By: #### 2 7-0 ####[facility] [address], [place] MCH (RBC) [Entitic mass] 28.1 Picograms Normal 27.0-34.0 [facility] Comment on above: Performed By: #### 2 4317-0 ####[place] [address], [place] MCHC (RBC) [Mass/Vol] 33.3 g/dL Normal 32.0-36.0 [facility] Comment on above: Performed By: #### 2 7-0 ####[facility] [address], [place] MCV (RBC) [Entitic vol] 84.6 fL Normal 80.0-97.0 [facility] Comment on above: Performed By: #### 2 4317-0 ####[place] [address] [place], [place] Platelet mean volume (Bld) [Entitic vol] 10.5 fL Normal 6.2-12.1 [facility] Comment on above: Performed By: #### 2 4317-0 ####[facility]EN[facility] [address] [place], [place] Platelets (Bld) [#/Vol] 231 thou/mcL Normal 142-424 [facility] Comment on above: Performed By: #### 2 4317-0 ####[address] RBC (Bld) [#/Vol] 4.43 million/mcL Normal 3.80-5.10 [facility] Comment on above: Performed By: #### 2 4317-0 ####[facility] WBC (Bld) [#/Vol] 12.7 thou/mcL High 4.6-10.2 [facility] Comment on above: Performed By: #### 2 4317-0 ####[facility] GFRaaon 03-01-2019 GFR/1.73 sq M predicted among blacks MDRD (S/P/Bld) [Vol rate/Area] mL/min/{1.73_m2} Normal [facility] Comment on above: Result Comment: The MDRD equation has not been validated for those over 70 years, women, patients with serious co-morbid conditions, or with extremes of body size, muscle mass of nutritional status. Performed By: #### 2 4321-2, 74172-0, 61806-5y8, 1988- ####[place] [address] [place], [place] GFRbbon 03-01-2019 GFR/1.73 sq M predicted among non-blacks MDRD (S/P/Bld) [Vol rate/Area] mL/min/{1.73_m2} Normal [facility] Comment on above: Performed By: #### 2 4321-2, 72044-7, 96615-4m1, 1988-03 ####[facility] [address] [place], [place] Glucose POCT (Uploaded)on Glucose [Mass/Vol] 87 mg/dL Normal 70-99 [facility] Comment on above: Result Comment: Nadia tment ranges and critical values established by Patient Care Services. All follow-up actions were taken by Patient Care Services. Performed By: #### 2 430-8 ####[facility] Glucose [Mass/Vol] 93 mg/dL Normal 70-99 [facility] Comment on above: Result Comment: Nadia tment ranges and critical values established by Patient Care Services. All follow-up actions were taken by Patient Care Services. Performed By: #### 2 430-8 ####[facility] Glucose [Mass/Vol] 95 mg/dL Normal 70-99 [facility] Comment on above: Result Comment: Nadia tment ranges and critical values established by Patient Care Services. All follow-up actions were taken by Patient Care Services. Performed By: #### 2 430-8 ####[facility] Glucose [Mass/Vol] 123 mg/dL High 70-99 [facility] Comment on above: Result Comment: Nadia [...] SABRINA VELASQUEZ/Sex: 1990 Female Med Rec #: [id number] Physician: Marcellus Driscoll MD Financial #: [id number] Pt. Type: I Room/Bed: [address] [place] [address] Admit/Disch: 02/28/19 08:18:00 - Institution: [facility] OR Main PACU I Case Times Entry 1 In PACU I 02/28/19 14:06:00 Ready for PACU I 02/28/19 15:15:00 Discharge Discharge from PACU 02/28/19 15:15:00 PACU I Discharge NA I Delay Reason Last Modified By: Elissa Shaffer RN 02/28/19 15:45:35 [facility] Main PACU I Case Attendees Entry 1 Case Attendee Elissa Shaffer RN RN Last Modified By: Elissa Shaffer RN 02/28/19 14:07:29 Finalized By: Sherrie Rendon RN Document Signatures Signed By: Elissa Shaffer RN 02/28/19 15:45 Sherrie Rendon RN 03/01/19 07:03 Normal [facility] Patient Summaryon 03-01-2019 Patient Summary PATIENT DISCHARGE INSTRUCTIONS If you are having an emergency and are not able to reach your physician, CALL 911 or go to the nearest emergency room and take this document with you. [facility] 03/01/19 18:[address] [place] [address]. [id number] PATIENT INFORMATION Name: SABRINA VELASQUEZ Address: [address] [place] [id number] Age: 29 Years Phone: [phone] : 1990 12:00 MRN: [id number] Sex: Female Race: White Ethnicity: Declined Admitted From: Clinic or [facility] Medical Service: Surgery Nurse Unit/Bed: (DC) 7TWH 3O69-72 Admit Date: 02/28/2019 08:18 PCP: Omid Killian MD PHYSICIANS INVOLVED WITH CARE ------ Attending Physicians: Marcellus Driscoll MD - Surgery Admitting Physician: Marcellus Driscoll MD - Surgery Primary Care Physician:Donaldo URBINA , Omid Almeida, - Consults: None found FOLLOW-UP APPOINTMENTS: Provider: Specialty: Address: Date: Marcellus Driscoll MD Surgery [address] [facility] [address] [facility] [address] (1) 03/08/19 01:45 pm Comment: Please follow-up at your pre-scheduled appointment. Provider: Specialty: Address: Date: Omid Killian MD [address] [facility] [address] (1) Follow-up as needed Provider: Specialty: Address: Date: Post-Op Nutrition Class [address] [facility] [address] 03/22/19 Comment: Please call [phone] for more information or to re-schedule. ALLERGIES: [...] doses are changed, or new medications (including itth-diz-ojmabjx products) are added. Ask your doctor if [...] diet. Follow recommendations from your surgeon and dry cell and battery assembler regarding you diet. Refer to nutrition information [...] doctor before taking any supplements, herbal or zhhu-gne-aprporz medications. Call your physician if any questions [...] suicide hotline, anytime day or night, at 1-102-735-OXIE. Important information about accessing your health information through the [employer] patient portal If you initiated the self-registration process for [employer] during your stay, please check your personal email for an invitation to enroll in [employer] and complete the steps outlined in the email. If you would prefer to enroll while in the hospital, ask a member of your care team. We would be happy to assist you. If you have already enrolled in [employer], go to [email or web address] to login and access your health information. Thank you for choosing [employer]. PATIENT EDUCATION Gastric Bypass Surgery, Care After [...] of caffeine can cause dehydration. ?? A dry cell and battery assembler may also give you specific instructions. ?? [...] 06/30/2005 Document Revised: 12/07/2015 Document Reviewed: 04/08/2011 [employer] Patient Education ??2016 [employer]. Gastric Bypass Discharge Instructions 1. Follow-up Care [...] dietitian for post-operative class at 2 weeks [phone] ? Call Bariatric Nurse Navigator [phone] with any further questions or concerns Call [phone] if you have difficulty breathing or chest [...] provided above is for informational purposes only. [facility] does not promote, condone or endorse all the values expressed herein. The values or opinions they express with regard to the use of artificial contraception are not consistent with the teachings of the [employer] and the Ethical and Adventism Directives for [facility]. If any of these instructions are different from what your doctor tells you, follow your doctor's orders. If you smoke, you should quit. For more information, talk with your doctor or call 4-625-NNMG-NOW ( ). PATIENT DISCHARGE INSTRUCTION Signature Page for: SABRINA VELASQUEZ Date/Time: 03/01/2019 18:42:02 A Clinician has explained the information on my discharge instructions and has provided me with a copy. My questions have been answered to my satisfaction. Patient Signature Date/Time Responsible Party Date/Time Relationship to Patient Clinician Signature Date/Time Normal [facility] Glucose POCT (Uploaded)on Glucose [Mass/Vol] 140 mg/dL High [address] Comment on above: Result Comment: Nadia tment ranges and critical values established by Patient Care Services. All follow-up actions were taken by Patient Care Services. Performed By: #### 2 430-8 ####[facility] Glucose [Mass/Vol] 127 mg/dL High 7099 [facility] Comment on above: Result Comment: Nadia tment ranges and critical values established by Patient Care Services. All follow-up actions were taken by Patient Care Services. Performed By: #### 2 430-8 ####[facility] Glucose [Mass/Vol] 141 mg/dL High [address] [place] [address] Comment on above: Result Comment: Nadia tment ranges and critical values established by Patient Care Services. All follow-up actions were taken by Patient Care Services. Performed By: #### 2 430-8 ####[facility] Glucose [Mass/Vol] 164 mg/dL High [address] Comment on above: Result Comment: Nadia [...] SABRINA VELASQUEZ/Sex: 1990 Female Med Rec #: [id number] Physician: Marcellus Driscoll MD Financial #: [id number] Pt. Type: I Room/Bed: / Admit/Disch: 02/28/19 08:18:00 - Institution[facility] Case Times Entry 1 Patient Times Patient In Room 02/28/19 11:17:00 Patient Out Room 02/28/19 14:05:00 Surgical Times Start Time 02/28/19 11:53:00 Stop Time 02/28/19 13:58:00 Last Modified By: Disha Levine RN 02/28/19 14:09:18 [facility] OR Case Attendees Entry 1 Entry 2 Entry 3 Case Attendee Yamila URBINA , Marcellus Mcmahan DO , Jacob Dorado CRNA , Kenny Smallwood Role Performed Primary Surgeon Anesthesiologist Nurse Manager Domestic Time In 02/28/19 11:17:00 02/28/19 11:17:00 02/28/19 [...] Guaman RN , Litzy Garcia Role Performed leasing consultant RN First Scrub Time In 02/28/19 11:17:00 02/28/19 11:17:00 02/28/19 11:17:00 Time Out 02/28/19 14:05:00 02/28/19 14:05:00 02/28/19 14:05:00 Procedure Bypass Gastric Bypass Gastric Bypass Gastric Robot(N/A) Robot(N/A) Robot(N/A) Attendee Comment LUNCH [id number] LUNCH [id number] lunch [id number] Relief Reason Last Modified By: Abner MARTIN , Disha Levine RN , Disha Levine RN , Disha Aiken 02/28/19 14:09:25 02/28/19 14:09:25 02/28/19 14:09:25 Entry 7 Entry 8 Entry 9 Case Attendee Adi MARTIN , Swetha Rao, Attendee Other Role Performed leasing consultant First Scrub Field Application Engineer Time In 02/28/19 11:48:00 02/28/19 11:57:00 02/28/19 11:17:00 Time Out 02/28/19 12:40:00 02/28/19 12:53:00 02/28/19 14:05:00 Procedure Bypass Gastric Bypass Gastric Bypass Gastric Robot(N/A) Robot(N/A) Robot(N/A) Attendee Comment [place] MIRANDA - INTUITIVE Relief Reason Last Modified By: Abner MARTIN , Disha Levine RN , Disha Levine RN , Disha Aiken 02/28/19 14:09:25 02/28/19 14:09:25 02/28/19 14:09:25 [facility] OR General Case Cable Maintainer 1 OR CO W 11 ASA Class [...] Procedure Wound Clean Contaminated Class Primary Surgeon Marcellus Driscoll MD Surgical Service General Surgery Anesthesia Type General Procedure Performed ROBOTIC GASTRIC BYPASS Start 02/28/19 11:53:00 Stop 02/28/19 13:58:00 Last Modified By: Disha Levine RN 02/28/19 14:09:31 [facility] OR Catheters, Drains, and Tubes Entry 1 Device Type CATH BARD CAICEDO TRAY Present on Arrival? No 16FR TEMP SEN W/URINE METER [id number] Inserted By Oly Guaman RN at End of Case? No Last Modified [...] OR Temperature Regulation Entry 1 Unit ID [id number] Site UPPER BODY Last Modified By: Gissell [...] pressure and/or shearing forces. Last Modified By: Disha Levine RN 02/28/19 14:05:33 [facility] OR [...] By: Disha Levine RN 02/28/19 14:10 Normal [facility] PreOp Nursingon 02-28-2019 PreOp Nursing [facility] PreOp Nursing Record Summary Primary Physician: Marcellus Driscoll MD Finalized Date/Time: 02/28/19 12:08:12 Pt. Name: SABRINA VELASQUEZ/Sex: 1990 Female Med Rec #: [id number] Physician: Marcellus Driscoll MD Financial #: [id number] Pt. Type: I Room/Bed: / Admit/Disch: 02/28/19 08:18:00 - Institution[facility] PreOp Case Times Entry 1 PreOp Case Times In Room Time 02/28/19 08:23:00 Out Room Time 02/28/19 11:15:00 Last Modified By: Gissell Joshi RN 02/28/19 12:08:08 [facility] PreOp Case Attendees Entry 1 Case Attendee Laurie Burns RN Role Suki RN Last Modified By: Laurie Burns RN 02/28/19 08:39:58 Finalized By: Gissell Joshi RN Document Signatures Signed By: Gissell Joshi RN 02/28/19 12:08 Normal [facility] [facility] with Differentialon 01-29 Basophils (Bld) [#/Vol] 0.00 thou/mcL Normal 0.00-0.20 [facility] Comment on above: Performed By: #### 5 7021-8 #### [address] [place], [place] Basophils/100 WBC (Bld) 0.4 % Normal 0.0-2.0 [facility] Comment on above: Performed By: #### 5 7021-8 #### [address] Eosinophils (Bld) [#/Vol] 0.10 thou/mcL Normal 0.00-0.70 [facility] Comment on above: Performed By: #### 5 7021-8 #### [facility] [address], [place] Eosinophils/100 WBC (Bld) 1.5 % Normal 0.0-7.0 [facility] Comment on above: Performed By: #### 7021-8 #### [facility] [address], [place] Erythrocyte distribution width (RBC) [Entitic vol] 14.8 % Normal 11.0-14.8 [facility] Comment on above: Performed By: #### 7021-8 #### [facility] [address] [place], [place] Hematocrit (Bld) [Volume fraction] 41.4 % Normal 35.0-45.0 [facility] Comment on above: Performed By: #### 7021-8 #### [address] [place], [place] Hemoglobin (Bld) [Mass/Vol] 13.7 g/dL Normal 12.0-16.0 [facility] Comment on above: Performed By: #### 7021-8 #### [address] [place], [place] Lymphocytes (Bld) [#/Vol] 1.80 thou/mcL Normal 1.00-4.80 [facility] Comment on above: Performed By: #### 7021-8 #### [address] [place], [place] Lymphocytes/100 WBC (Bld) 21.5 % Low 22.0-44.0 [facility] Comment on above: Performed By: #### 5 7021-8 #### [facility] [address], [place] MCH (RBC) [Entitic mass] 28.6 Picograms Normal 27.0-34.0 [facility] Comment on above: Performed By: #### 5 7021-8 #### [facility] [address], [place] MCHC (RBC) [Mass/Vol] 33.2 g/dL Normal 32.0-36.0 [facility] Comment on above: Performed By: #### 7021-8 #### [facility] [address], [place] MCV (RBC) [Entitic vol] 86.0 fL Normal 80.0-97.0 [facility] Comment on above: Performed By: #### 70-8 #### [facility] [address] [place], [place] Monocytes (Bld) [#/Vol] 0.60 thou/mcL Normal 0.00-0.90 [facility] Comment on above: Performed By: #### 70-8 #### [facility] [address] [place], [place] Monocytes/100 WBC (Bld) 7.5 % Normal 0.0-12.0 [facility] Comment on above: Performed By: #### 70-8 #### [address] [place], [place] Neutrophils (Bld) [#/Vol] 5.90 thou/mcL Normal 1.80-7.70 [facility] Comment on above: Performed By: #### 7021-8 #### [address] [place], [place] Neutrophils/100 WBC (Bld) 69.1 % Normal 40.0-70.0 [facility] Comment on above: Performed By: #### 7021-8 #### [address] [address] [place], [place] Platelet mean volume (Bld) [Entitic vol] 11.3 fL Normal 6.2-12.1 [facility] Comment on above: Performed By: #### 7021-8 #### [facility] [address] [place], [place] Platelets (Bld) [#/Vol] 194 thou/mcL Normal 142-424 [facility] Comment on above: Performed By: #### 7021-8 #### [facility] [address] [place], [place] RBC (Bld) [#/Vol] 4.81 million/mcL Normal 3.80-5.10 [facility] Comment on above: Performed By: #### 5 7021-8 #### [facility] [address], [place] WBC (Bld) [#/Vol] 8.5 thou/mcL Normal 4.6-10.2 [facility] Comment on above: Performed By: #### 5 7021-8 #### [facility] [address], [place] Comprehensive Metabolic Pane satnam 2019 Albumin [Mass/Vol] 3.3 g/dL Low 3.5-4.8 [facility] Comment on above: Performed By: #### 2 4323-8, 31994-4f6, 71889-5 ####[facility] [address], [place] ALP [Catalytic activity/Vol] 72 Units/L Normal 32-91 [facility] Comment on above: Performed By: #### 2 4323-8, 31548-8m4, 70793-8 ####[address], [place] ALT [Catalytic activity/Vol] 18 Units/L Normal 14-63 [facility] Comment on above: Performed By: #### 2 4323-8, 03730-2d3, 74942-5 ####[facility] [address], [place] Anion gap [Moles/Vol] 10.0 mmol/L Normal 6.0-18.0 [facility] Comment on above: Performed By: #### 2 4323-8, 33849-6h8, 49310-1 ####[facility] [address], [place] AST [Catalytic activity/Vol] 17 Units/L Normal 15-41 [facility] Comment on above: Performed By: #### 2 4323-8, 63950-6o1, 71772-9 ####[facility] [address], [place] Bilirubin [Mass/Vol] 0.7 mg/dL Normal 0.3-1.2 [facility] Comment on above: Performed By: #### 2 4323-8, 02325-7q9, 59239-2 ####[facility] [address], [place] Calcium [Mass/Vol] 8.5 mg/dL Low 8.9-10.3 [facility] Comment on above: Performed By: #### 2 4323-8, 49684-3l3, 17508-3 ####[facility] [address], [place] Chloride [Moles/Vol] 104 mmol/L Normal 98-107 [facility] Comment on above: Performed By: #### 2 4323-8, 34730-1h1, 28345-9 ####[facility] [address], [place] CO2 [Moles/Vol] 22 mmol/L Normal 22-32 [facility] Comment on above: Performed By: #### 2 4323-8, 22387-1n6, 18708-4 ####[facility] [address], [place] Creatinine [Mass/Vol] 0.79 mg/dL Normal 0.60-1.30 [facility] Comment on above: Performed By: #### 2 4323-8, 69393-6d5, 33079-3 ####[facility] [address], [place] Glucose [Mass/Vol] 93 mg/dL Normal 70-99 [facility] Comment on above: Result Comment: U pdated ADA Reference Range A normal fasting glucose concentration is less than 100 mg/dL. An impaired fasting glucose concentration is 100-125 mg/dL. A provisional diagnosis of diabetes mellitus can be made when a fasting glucose concentration is greater than 125 mg/dL. Performed By: #### 2 4323-8, 69254-9c6, 06093-4 ####[facility] [address], [place] Potassium [Moles/Vol] 4.1 mmol/L Normal 3.6-5.1 [facility] Comment on above: Performed By: #### 2 4323-8, 37686-4n0, 94691-7 ####[facility] [address], [place] Protein [Mass/Vol] 6.0 g/dL Low 6.1-7.9 [facility] Comment on above: Performed By: #### 2 4323-8, 87649-3q8, 01876-5 ####[facility] [address], [place] Sodium [Moles/Vol] 136 mmol/L Normal 136-145 [facility] Comment on above: Performed By: #### 2 4323-8, 32875-0y8, 85959-6 ####[facility] [address], [place] Urea nitrogen (BldV) [Mass/Vol] 13 mg/dL Normal 8-20 [facility] Comment on above: Performed By: #### 2 4323-8, 49890-3m2, 80745-6 ####[facility] [address], [place] GFRaaon 2019 GFR/1.73 sq M predicted among blacks MDRD (S/P/Bld) [Vol rate/Area] mL/min/{1.73_m2} Normal [facility] Comment on above: Result Comment: The MDRD equation has not been validated for those over 70 years, women, patients with serious co-morbid conditions, or with extremes of body size, muscle mass of nutritional status. Performed By: #### 2 4323-8, 20596-0s5, 17176-2 ####[address], [place] GFRbbon 2019 GFR/1.73 sq M predicted among non-blacks MDRD (S/P/Bld) [Vol rate/Area] mL/min/{1.73_m2} Normal [facility] Comment on above: Performed By: #### 2 4323-8, 02001-4x3, 17518-1 ####[facility] [address], [place] Glycohemoglobin (HGB A1C) Emanuel guardado 2019 HbA1c (Bld) [Mass fraction] 5.0 % tl hgb Normal <5.6 [facility] Comment on above: Result Comment: U pdated ADA Reference Range HbA1c values of 5.7-6.4 percent indicate an increased risk for developing diabetes mellitus. HbA1c values greater than or equal to 6.5 percent are diagnostic of diabetes mellitus. For diagnosis of diabetes in individuals without unequivocal hyperglycemia, results should be confirmed by repeat testing. Performed By: #### 4 549-2 ####[facility], [address] [place] [address]. Partial Thromboplastin Time (aPTT)on 2019 aPTT Coag (PPP) [Time] 29.6 Sec Normal 23.6-35.3 [facility] Comment on above: Performed By: #### 3 173-2, 5902-2 ####[facility], [address] [place] [address]. Prothrombin Timeon 9 INR Coag (Bld) [Relative time] 1.00 {INR} Normal [facility] Comment on above: Result Comment: The recommended therapeutic INR range for most cardiac indications is 2.0-3.0. For high intensity therapy(ie.mechanical heart valves), the recommended range is 2.5-3.5. Performed By: #### 3 173-2, 5902-2 ####[facility], [address] [place] [address]. PT Coag (PPP) [Time] 11.5 Sec Normal 9.3-12.4 [facility] Comment on above: Performed By: #### 3 173-2, 5902-2 ####[facility], [address] [place] [address]. XR Chest 2 Viewson 9 XR Chest 2 views Two-view chest exam Indication: pre-op. Cough for the past week. COMPARISON: E 66.01 FINDINGS: The lungs are clear and the costophrenic angles are sharp. The cardiomediastinal silhouette and bones are normal. IMPRESSION: Normal chest. [facility] thanks you for the opportunity to care for your patient. Workstation ID: [id number] FINAL REPORT Dictated By: Jean Hull MD 2019 08:47 Assigned Physician: Jean Hull MD Reviewed and Electronically Signed By: Jean Hull MD 2019 08:48 Transcribed by: GREGORY 2019 08:47 Technologist: SHAKA Carranza [facility] OR Nursingon 09-17-2018 OR Nursing CO ESTHELA Endo OR Nursing Record Summary Primary Physician: Tristan Dickey MD Finalized Date/Time: 09/17/18 07:39:53 Pt. Name: VELASQUEZFRANCISCOPAULINE Rosenthal/Sex: 1990 Female Med Rec #: [id number] Physician: Financial #: [id number] Pt. Type: I Room/Bed: / Admit/Disch: 09/16/18 [...] Entry 3 Case Attendee Tristan Dickey MD SOFTWARE CONTROLS ENGINEER , Charbel Wolf DO Role Performed Primary Surgeon Nurse Manager Domestic Anesthesiologist Time In 09/16/18 14:20:00 09/16/18 14:20:00 09/16/18 14:20:00 Time Out 09/16/18 14:30:00 09/16/18 14:30:00 09/16/18 14:30:00 Procedure Egd_(N/A) Egd_(N/A) Egd_(N/A) Attendee Comment Relief Reason Last Modified By: Breanna RN , Afia Carlos RN , Afia Reyes RN 09/16/18 14:31:12 09/16/18 14:31:12 09/16/18 14:31:12 Entry 4 Entry 5 Case Attendee Afia Carlos RN, RN , Rosalio Cohn leasing consultant Sole Rougher Time In 09/16/18 14:20:00 09/16/18 14:20:00 Time Out 09/16/18 14:30:00 09/16/18 14:30:00 Procedure Egd_(N/A) Egd_(N/A) Attendee Comment Relief Reason Last Modified By: Afia Carlos RN, RN, Courtney 09/16/18 14:31:12 09/16/18 14:31:12 CO Ines Endo General Case Cable Maintainer 1 OR CO W EN 02 ASA [...] ADDED PER SCANNED ANES. PAPER RECORD KEILA PROCTOR Endo Surgical Procedures Entry 1 Procedure Egd_ Primary Procedure Yes Modifiers N/A Procedure Wound None Class Primary Surgeon Keli URBINA , Tristan Surgical Service General Surgery Anesthesia Type MAC [...] 07:39 Sherrie Rendon RN 09/17/18 07:39 Normal [facility] Post PACU Nursingon 09-17-20 18 Post PACU Nursing CO [facility] Endo PACU II Nursing Record Summary Primary Physician: Tristan Dickey MD Finalized Date/Time: 09/17/18 07:40:27 Pt. Name: SABRINA VELASQUEZ/Sex: 1990 Female Med Rec #: [id number] Physician: Financial #: [id number] Pt. Type: I Room/Bed: / Admit/Disch: 09/16/18 13:46:00 - 09/16/18 15:20:00 Institution: [facility] PACU II Case Times Entry 1 In [...] 07:35 Sherrie Rendon RN 09/17/18 07:40 Normal [facility] PreOp Nursingon 09-17-2018 PreOp Nursing CO W Endo PreOp Nursing Record Summary Primary Physician: Tristan Dickey MD Finalized Date/Time: 09/17/18 07:36:42 Pt. Name: FRANCISCO VELASQUEZPAULINE Garcia/Sex: 1990 Female Med Rec #: [id number] Physician: Financial #: [id number] Pt. Type: I Room/Bed: / Admit/Disch: 09/16/18 13:46:00 - 09/16/18 15:20:00 Institution: [facility] PreOp Case Times Entry 1 PreOp Case Times In Room Time 09/16/18 14:00:00 Out Room Time 09/17/18 14:19:00 Last Modified By: Sherrie Rendon RN 09/17/18 07:36:31 General Comments: OUT ROOM TIME ENTERED PER PATIENT IN ROOM TIME (OR NSG RECORD) KEILA RN CO ESTHELA Endo PreOp Case Attendees Entry 1 Case Attendee Andrew MARTIN , Altagracia Cohn RN Last Modified By: Altagracia Morales RN 09/16/18 14:00:58 Finalized By: Sherrie Rendon RN Document Signatures Signed By: Sherrie Rendon RN 09/17/18 07:36 Sherrie Rendon RN 09/17/18 07:36 Normal [facility] Patient Summaryon 09-16-2018 Patient Summary PATIENT DISCHARGE INSTRUCTIONS If you are having an emergency and are not able to reach your physician, CALL 911 or go to the nearest emergency room and take this document with you. [facility] 09/16/18 14:45 [address] [place]. [address] PATIENT INFORMATION Name: SABRINA VELASQUEZ Address: [address] [place] [address] Age: 28 Years Phone: [phone] : 1990 12:00 MRN: [id number] Sex: Female Race: White Ethnicity: Declined Admitted From: Clinic or [facility] Medical Service: Surgery Nurse Unit/Bed: (GALEN) ESSENCE N/A Admit Date: 09/16/2018 13:46 PCP: Omid Killian MD PHYSICIANS INVOLVED WITH CARE ------ Attending Physicians: Tristan Dickey MD Surgery Admitting Physician: None found Primary Care Physician:Omid Killian MD, - Consults: None found ALLERGIES: No Known Allergies MEASUREMENTS: Last Charted: Weight: Admission 175.4 kg /386 lbs 11 oz ( 09/16/18 14:01:00 ) MEDICATIONS For: EVA SABRINA This is your list of medication(s). Keep it with you at all times. Your doctor may have changed doses, add, held or stopped some of your medications. Please share this information with your family doctor. Carry this list of medications with you in case of an emergency. Update it when medications are stopped, doses are changed, or new medications (including yrxn-knd-jtpehpw products) are added. Ask your doctor if [...] suicide hotline, anytime day or night, at 4-325-219-JIXM. Important information about accessing your health information through the [facility] [employer] patient portal If you initiated the self-registration process for [employer] during your stay, please check your personal email for an invitation to enroll in [employer] and complete the steps outlined in the email. If you would prefer to enroll while in the hospital, ask a member of your care team. We would be happy to assist you. If you have already enrolled in [employer], go to [email or web address] to login and access your health information. Thank you for choosing [facility] [employer]. PATIENT EDUCATION Esophagogastroduodeno scopy, Care After Refer [...] Document Reviewed: 11/02/2013 Elsevier Interactive Patient Education ?2015 [employer] VIRUSES OR BACTERIA: WHAT'S GOT YOU [...] Relationship to Patient Clinician Signature Date/Time Normal [facility] ECG 12 leadon 06-14-2018 Atrial Rate Invalid Interpretation Code [facility] P Burton Invalid Interpretation Code [facility] P-R Interval Invalid Interpretation Code [facility] Q-T Interval Invalid Interpretation Code [facility] Q-T Interval (corrected) Invalid Interpretation Code [facility] QRS Duration Invalid Interpretation Code [facility] QTC Calculation (Bezet) Invalid Interpretation Code [facility] R Burton Invalid Interpretation Code [facility] T Burton Invalid Interpretation Code [facility] Ventricular Rate Invalid Interpretation Code [facility] Vital Signs Date Time Vital Sign Value Performing Clinician Abbey ruiz 07-14-2020 13:00-0400 BP Diastolic 78 mm[Hg] Alicia Hudson [facility] 07-14-2020 13:00-0400 BP Systolic 123 mm[Hg] Alicia Hudson [facility] 07-14-2020 13:00-0400 Pulse (Heart Rate) 55 /min [facility] 07-14-2020 13:00-0400 Pulse Oximetry 100 % [facility] 07-14-2020 10:06-0400 Body Temperature 98.8 [degF] Alicia Hudson [facility] 07-14-2020 10:04-0400 BMI (Body Mass Index) 43.58 kg/m2 Alicia Hudson [facility] 07-14-2020 10:04-0400 Body weight 122.47 kg [facility] 07-14-2020 10:04-0400 Height 167.6 cm [facility] 07-14-2020 10:04-0400 Respiratory Rate 16 /min Alicia Hudson [facility] 06-14-2018 09:16-0400 BMI (Body Mass Index) 63.24 kg/m2 [facility] 06-14-2018 09:16-0400 BP Diastolic 84 mm[Hg] [facility] 06-14-2018 09:16-0400 BP Systolic 128 mm[Hg] [facility] 06-14-2018 09:16-0400 Height 167.6 cm [facility] 06-14-2018 09:16-0400 Pulse (Heart Rate) 64 /min [facility] 06-14-2018 09:16-0400 Pulse Oximetry 98 % [facility] 06-14-2018 09:16-0400 Weight 177.72 kg [facility] Encounters Encounter Date Encounter Type Care Provider Facility Start: 12-30-2023 End: 12-30-2023 ambulatory LIA MAKAYLA Not Available Start: 12-10-2023 End: 12-10-2023 ambulatory LIA MAKAYLA Not Available Start: 07-14-2020 End: 07-14-2020 Emergency department patient visit OMID MARTINEZ KILLIAN [facility] Start: 07-14-2020 End: 07-14-2020 Emergency department patient visit Alicia Hudson Work Phone: [facility] Emergency Department Comment on above: Threatened (Primary Dx) Start: 12-13-2018 End: 12-13-2018 Patient encounter procedure Lauren Rivera [facility] Start: 06-14-2018 End: 06-14-2018 Patient encounter PROVIDER NOT IN SYSTEM [facility] Start: 06-14-2018 End: 06-14-2018 Office outpatient new 30 minutes Provider Not In [facility] Start: 05-17-2018 End: 05-17-2018 Patient encounter VANESSA EDOUARD [facility] Start: 05-17-2018 End: 05-17-2018 Office outpatient new 30 minutes Vanessa Edouard Work Phone: [facility] Procedures Date Procedure Procedure [...] vaccinatio n given Sequential Influenza Vaccine (#1) [facility] Start: 07-31-2018 Influenza vaccination [facility] Start: 07-31-2018 Influenza vaccinatio n given SEQUENTIAL INFLUENZA VACCINE (#1) [facility] Start: 07-19-2018 End: 07-19-2018 Ambulatory 07/19/2018 Office Visit Dermatology Vanessa Edouard Jr., [address] [place] [address] [phone] [facility] Start: 06-14-2018 End: 06-14-2018 Ambulatory 06/14/2018 Office Visit Cardiology System, Provider Not In [place], Josefina Matthew MD [address] [place] [address] [phone] [facility] Start: 02-21-2010 Hepatitis C antibody , confirmatory test Hepatitis C Screening [facility] Start: 02-21-2007 HIV screening HIV Screening [facility] Start: 02-21-1995 History and physical examination, annual for health maintenance Wellness Visit [facility] Start: 1992 Screening for malign ant neoplasm of cervix PAP SMEAR [facility] Start: 1992 [facility] End: 07-14-2020 Neisseria gonorrhoeae nucleic acid detection Chlamydia/Gonorrhoeae Amplified RNA Microbiology Routine Once for 1 Occurrences starting 07/14/2020 until 07/14/2020 [facility] Comment on above: Once for 1 Occurrenc es starting 07/14/2020 until 07/14/2020 Neisseria gonorrhoea e nucleic acid detection Chlamydia/Gonorrhoeae Amplified RNA Microbiology Routine 07/14/2020 11:20 AM EDT [facility] Payers Date Payer Category Payer Medicaid [id number] 2020 Medicaid [employer] MED[employer] xxxxxxxxxxx 2020-Present xxxxxxxxxxx [id number] 2020 Medicaid [id number] 2019 Private Health Insurance [id number] 2017 Unknown [id number] 2017 Unknown [facility] HMO/BECKY/ BECKY PLUS/CHOICE PLUS xxxxxxxxx 2017-Present xxxxxxxxx [id number] 1992 Unknown [id number] 1992 Unknown [id number] 1990 Unknown [id number] Social History Date Type Detail Facility Start: 05-17-2018 End: 06-14-2018 Tobacco smoking status [facility] Never smoker [facility] Sex Assigned At Not on file [facility] Start: 07-14-2020 Tobacco smoking status MNIS Current some day smoker [facility] Start: 07-14-2020 Alcohol intake Current non-dr ui ux developer of alcohol (finding) [facility] Exposure to SARS-CoV -2 (event) Not sure [facility] Assessments Note Patient: SABRINA VELASQUEZ MRN : ([id number] Age: 29 years Sex: Female : 1990 Associated Diagnoses: None Author: Robby URBINA, John Supervising Physician Comments Patient was seen and examined at 11am Below physical findings were confirmed. Labs and vitals were reviewed. Plan was discussed with the resident team. -Feels OK, pain is controlled -Abd soft, tasneem ttp 1)POD 1 s/p laparoscopic gastric bypass cont per protocol plan for home later today Logan Driscoll MD [phone] SURGERY PROGRESS NOTE SUBJECTIVE: Patient denies abd [...] FoundDocuments on File Type Date Recorded Patient Director Of Product Design Expl 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 Roney Zhong [place] 09/16/18 14:45 [address] [place]. [address] PATIENT INFORMATION Name: SABRINA VELASQUEZ Address: [address] [address] Age: 28 Years Phone: [phone] : 1990 12:[birth year] MRN: ([id number] Sex: Female Race: White Ethnicity: Declined Admitted From: Clinic or Phys Of[facility] Medical Service: Surgery Nurse Unit/Bed: (CO) W-ENDW N/A Admit Date: 09/16/2018 13:46 PCP: Omid Killian MD PHYSICIANS INVOLVED WITH CARE Attending Physicians: Tristan Dickey MD Surgery Admitting Physician: None found Primary Care Physician:Donaldo URBINA , Omid Almeida, - Consults: None found Problems Active Obesity IBS (irritable bowel syndrome) GERD (gastroesophageal reflux disease) Murmur Allergies NKA Procedures Tonsillectomy (2009) MEASUREMENTS: Last (more content not included)... Note CLINICAL SUMMARY Please take this summary document to your follow up appointments. Roney Zhong [place] 03/01/19 18:42 [address] [place]. [address] PATIENT INFORMATION Name: FRANCISCO VELASQUEZPAULINE Hensley Address: [address] [address] Age: 29 Years Phone: [phone] : 1990 12:00 MRN: ([id number] Sex: Female Race: White Ethnicity: Declined Admitted From: Clinic or Phys Of[facility] Medical Service: Surgery Nurse Unit/Bed: (CO) 7TWH 4R55-17 Admit Date: 02/28/2019 08:18 PCP: Omid Killian MD PHYSICIANS INVOLVED WITH CARE Attending Physicians: Marcellus Driscoll MD - Surgery Admitting Physician: Marcellus Driscoll MD - Surgery Primary Care Physician:Omid Killian MD, - Consults: None found Problems Active Morbid (severe) obesity due to excess calories Obesity IBS (irritable bowel syndrome) GERD (gastroesophageal reflux (more content not included)... Note Patient: SABRINA VELASQUEZ MRN : ([id number] Age: 29 years Sex: Female : 1990 [...] GERD, IBS, and heart murmur presented to [facility] on 02/28/2019 for an elective robotically assisted laparoscopic [place]-en-Y gastric bypass with by Purnima albarran an had an extensive preoperative workup. Patient tolerated the procedure well and was transferred to PACU in stable condition where she had an uneventful recovery. His then tra (more content not included)... Note Patient: SABRINA VELASQUEZ MRN : ([id number] Age: 29 years Sex: Female : 1990 [...] for home later today Logan Driscoll MD [phone] SURGERY PROGRESS NOTE SUBJECTIVE: Patient denies abd [...] (02/28 12:00 (more content not included)... Note [facility] Patient Name: Sabrina Velasquez Procedure Date: 09/16/2018 [...] not included)... Note Patient: SABRINA VELASQUEZ MRN: [id number] Age: 28 years Sex: Female : 1990 Associated Diagnoses: None Author: Kasie Camacho CRNA Supervising Physician Comments Documentation By: Certified Registered Nurse Manager Domestic. Subjective Subjective: Patient participated in the evaluation: [...] concluded. Note Patient: SABRINA VELASQUEZ MRN : [id number] Age: 29 years Sex: Female : 1990 [...] (more content not included)... Procedure Findings Note [facility] Patient Name: Sabrina Velasquez Procedure Date: 09/16/2018 [...] content not included)... Note Patient: SABRINA VELASQUEZ [facility]: [id number] Age: 28 years Sex: Female : 1990 Associated Diagnoses: None Author: Kasie Camacho CRNA Supervising Physician Comments Documentation By: Certified Registered Nurse Manager Domestic. Subjective Subjective: Patient participated in the evaluation: [...] concluded. Note Patient: SABRINA VELASQUEZ MRN : ([id number] [facility]: [id number] Age: 29 years Sex: Female : 1990 [...] sent through Care Everywhere. * Miscarriage: Threatened ([place]) documented in this encounter Additional Source Comments [...] nondistended Alicia Hudson MD ED Attending Physician [facility] Emergency Department documented in this encounter INFORMATION SOURCE (unrecogn ized section and content) DATE CREATED AUTHOR 06/15/2018 [facility] DATE CREATED AUTHOR AUTHOR'S ORGANIZ ATION 08/09/2019 [facility] DATE CREATED AUTHOR AUTHOR'S ORGANIZ ATION 12/27/2020 [facility] DATE CREATED AUTHOR AUTHOR'S ORGANIZ ATION 12/31/2023 [facility] EPIC Reason for Visit (unrecogniz ed section and content) Reason Comments Vaginal Bleeding Chris Pate PA-C - 07/14/2020 10:43 AM EDTWDorinda roblero RN - 07/14/2020 10:07 AM EDTDorinda Parikh RN - 07/14/2020 10:04 AM EDT ED Notes (unrecognized secti on and content) ED PROVIDER NOTE [facility] EMERGENCY DEPARTMENT NAME: Sabrina Velasquez AGE: 30 y.o. : 1990 VISIT DATE: 07/14/2020 CSN: [id number] PCP: Omid Killian MD Clinical Impression: 1. Threatened ED Disposition ED Disposition Condition Comment Discharge Stable Sabrina Velasquez discharged to home/self care in stable condition. Follow-up Information 1. Roni Cleemns MD. Specialty: Obstetrics/Gynecology Why: For recheck of today's symptoms [address] [facility] [place] [address] 2. [facility] Emergency Department. Specialty: Emergency Medicine Why: As needed, If symptoms worsen [address] [facility] [address] Contact information for after-discharge care Follow-up information [...] this point clinically. Patient has appointment with BEHAVIORAL HEALTH CARE COORDINATOR on Thursday. Considered implantation bleeding, threatened , [...] reports she is scheduled to see her BEHAVIORAL HEALTH CARE COORDINATOR Dr. Clemens next week. Patient denies any [...] file Gets together: Not on file Attends pentecostal service: Not on file Active member of [...] nursing note reviewed. Exam conducted with a cardroom plastic card grader present. Constitutional: Appearance: Normal appearance. HENT: Head: [...] Colorless, Yellow Clarity, Urine Clear Clear Specific [place] 1.011 1.005 - 1.025 pH, Urine 7.0 [...] bleeding, spontaneous of is believed most likely. [facility] Workstation ID: [id number] Procedures The patient has [...] pre-hypertension or hypertension. . Chris Pate PA-C [facility] Emergency Department Chris Pate PA-C 07/14/20 1340 [...] BE BASED ON THE PRIMARY CLINICAL RECORDS. [employer] provides no warranty or guarantee of the accuracy or completeness of information in this document.
[2024-02-03 11:13] LABS: Age Gdln ACOG Testing Note (.); HPV Aptima Negative (Negative); IGP, Aptima HPV, rfx 16/18,45 Note (.)
== END 2024-01-27 20:58 | disposition home or self-care (01) ==
LOC: LAB 20:57
PROVIDERS: Visit Provider Obstetrics & Gynecology
DX: Z01.419 Encounter for gynecological examination (general) (routine) without abnormal findings (principal)
CPT/HCPCS: 87624; G0145

== ENCOUNTER 2024-02-24 13:39 | Outpatient (OUT) | payer OTHER, SELFPAY ==
--- NOTE | 2024-02-24 13:40 | US_ITS ---
[address] [address] Patient Name: SABRINA VELASQUEZ MRN: [id number] date: 1990 Sex: F Assigned Patient Location: [facility] Current Patient Location: [facility] Accession/Order Number: [id number] Exam Date: 02/24/2024 13:40 Report Date: 02/24/2024 15:02 At the request of: LIA BENAVIDES Procedure: US OB cervical length EXAMINATION: US OB anatomy, US OB cervical length HISTORY: ANATOMY COMPARISON: No relevant comparison available. TECHNIQUE: Transabdominal sonographic examination was performed for obstetrical and evaluation. FINDINGS: Number: 1 Heart Rate: 145.0 bpm H.B. /min Amniotic Fluid Volume: Subjectively normal Placental Location: POSTERIOR with lower margin 5.3 cm from os. Cervix Length: 3.3 cm, closed. ANATOMY: Normal Structures -cerebellum, choroid plexus, cisterna magna, lateral cerebral ventricles, orbits, midline falx, hard palate, four-chamber heart, RVOT, LVOT, stomach, kidneys, bladder, umbilical cord insertion into abdomen, three-vessel cord, cervical spine, thoracic spine, lumbar spine, sacral spine, right upper extremity, left upper extremity, right lower extremity, left lower extremity. SUBOPTIMALLY SEEN: None ABNORMALITIES: None BIOMETRY: BPD: 5.3 cm 22 weeks 0 days HC: 19.5 cm 21 weeks 5 days AC: 17.8 cm 22 weeks 5 days FL: 3.8 cm 22 weeks 2 days EFW:499.3 grams; 78% FL/AC: 21.5 FL/BPD: 72.8 HC/AC: 1.1 GESTATIONAL AGE: Age by EDC: 21 weeks 5 days FRANCISCO by EDC: 07/01/2024 Age by current US: 22 weeks 1 days FRANCISCO by current US: 06/28/2024 US/US OB cervical length IMPRESSION: 1. Single live intrauterine with growth detailed above. Electronically authenticated by: SILVINA KUMARI Date: 02/24/2024 15:02
--- NOTE | 2024-02-24 13:40 | US_ITS ---
[address] [address] Patient Name: SABRINA VELASQUEZ MRN: [id number] date: 1990 Sex: F Assigned Patient Location: [facility] Current Patient Location: [facility] Accession/Order Number: [id number] Exam Date: 02/24/2024 13:41 Report Date: 02/24/2024 15:02 At the request of: LIA BENAVIDES Procedure: US OB anatomy EXAMINATION: US OB anatomy, US OB cervical length HISTORY: ANATOMY COMPARISON: No relevant comparison available. TECHNIQUE: Transabdominal sonographic examination was performed for obstetrical and evaluation. FINDINGS: Number: 1 Heart Rate: 145.0 bpm H.B. /min Amniotic Fluid Volume: Subjectively normal Placental Location: POSTERIOR with lower margin 5.3 cm from os. Cervix Length: 3.3 cm, closed. ANATOMY: Normal Structures -cerebellum, choroid plexus, cisterna magna, lateral cerebral ventricles, orbits, midline falx, hard palate, four-chamber heart, RVOT, LVOT, stomach, kidneys, bladder, umbilical cord insertion into abdomen, three-vessel cord, cervical spine, thoracic spine, lumbar spine, sacral spine, right upper extremity, left upper extremity, right lower extremity, left lower extremity. SUBOPTIMALLY SEEN: None ABNORMALITIES: None BIOMETRY: BPD: 5.3 cm 22 weeks 0 days HC: 19.5 cm 21 weeks 5 days AC: 17.8 cm 22 weeks 5 days FL: 3.8 cm 22 weeks 2 days EFW:499.3 grams; 78% FL/AC: 21.5 FL/BPD: 72.8 HC/AC: 1.1 GESTATIONAL AGE: Age by EDC: 21 weeks 5 days FRANCISCO by EDC: 07/01/2024 Age by current US: 22 weeks 1 days FRANCISCO by current US: 06/28/2024 US/US OB anatomy IMPRESSION: 1. Single live intrauterine with growth detailed above. Electronically authenticated by: SILVINA KUMARI Date: 02/24/2024 15:02
== END 2024-02-24 13:40 | disposition home or self-care (01) ==
LOC: NOMS 13:39
PROVIDERS: Visit Provider Obstetrics & Gynecology
DX: Z36.89 Encounter for other specified antenatal screening (principal); Z3A.22 22 weeks gestation of pregnancy
CPT/HCPCS: 76805; 76817

== ENCOUNTER 2024-03-29 10:27 | Outpatient (OUT) | payer OTHER, SELFPAY ==
[2024-03-29 10:54] LABS: Basophils Percent Auto 0.1 % (0.2-2.0); Eosinophils Absolute Auto 0.1 10^3/uL (0.0-0.7); Eosinophils Percent Auto 1.2 % (0.9-7.0); Hematocrit 34.3 % (36.0-48.0); Hemoglobin 11.2 g/dL (12.0-16.0); Immature Granulocytes Abs Auto 0.03 10^3/uL (0.00-0.03); Immature Granulocytes Pct Auto 0.4 % (0.0-0.5); Lymphocytes Absolute Auto 1.6 10^3/uL (1.2-3.8); Lymphocytes Percent Auto 19.4 % (20.5-60.0); Mean Corpuscular HGB Conc 32.7 g/dL (29.9-35.2); Mean Platelet Volume 11.9 fL (9.5-13.5); Monocytes Absolute Auto 0.4 10^3/uL (0.3-0.8); Monocytes Percent Auto 5.3 % (1.7-12.0); Neutrophils Absolute Auto 6.1 10^3/uL (1.4-6.5); Neutrophils Percent Auto 73.6 % (43.0-75.0); Platelet Count 141 10^3/uL (150-450); Red Blood Count 3.73 10^6/uL (4.20-5.40); Red Cell Distribution Width 13.3 % (11.0-15.0); White Blood Count 8.3 10^3/uL (4.0-11.0)
[2024-03-29 11:01] LABS: Estimated Average Glucose 91 mg/dL; Glycohemoglobin A1C 4.8 % (4.5-6.2)
[2024-03-30 06:09] LABS: HBsAg Screen Negative (Negative); HCV Ab Non Reactive (Non Reactive); HIV Ab/p24 Ag Screen Non Reactive (Non Reactive)
[2024-03-30 13:08] LABS: Rapid Plasma Reagin, Quant Non Reactive titer (NonRea<1:1)
== END 2024-03-29 10:28 | disposition home or self-care (01) ==
LOC: LAB 10:28
PROVIDERS: Visit Provider Obstetrics & Gynecology
DX: N92.6 Irregular menstruation, unspecified (principal)
CPT/HCPCS: 36415; 83036; 85025; 86592; 86762; 86803; 86850; 86900; 86901; 87086; 87340; 87389

== ENCOUNTER 2024-05-19 08:27 | Outpatient (OUT) | payer OTHER, SELFPAY ==
--- NOTE | 2024-05-19 08:29 | US_ITS ---
[address] [address] Patient Name: SABRINA VELASQUEZ MRN: [id number] date: 1990 Sex: F Assigned Patient Location: [facility] Current Patient Location: [facility] Accession/Order Number: [id number] Exam Date: 05/19/2024 08:29 Report Date: 05/19/2024 13:44 At the request of: MARITZA VELA Procedure: US OB growth EXAMINATION: US OB growth HISTORY: SIZE INCONSISTENT WITH DATES COMPARISON: Ultrasound OB anatomy 02/24/2024 FINDINGS: Heart Rate: 133 bpm Amniotic Fluid Volume: 23.0 cm Number: 1 Position: Cephalic BIOMETRY: BPD: 8.2 cm; 33.0; 22% HC: 31.3 cm; 35 weeks 1 day; 46% AC: 29.7 cm; 33 weeks 5 days; 48% FL: 6.6 cm; 34 weeks 0 days; 42% EFW: 2287; 42% FL/AC: 22.19 FL/BPD: 80.37 HC/AC: 1.06 GESTATIONAL AGE: Age by EDC: 33 weeks 6 days FRANCISCO by EDC: 07/01/2024 Age by US: 34 weeks 0 days FRANCISCO by US: 06/30/2024 US/US OB growth IMPRESSION: 1. Single live intrauterine with growth detailed above. Electronically authenticated by: SILVINA KUMARI Date: 05/19/2024 13:44
--- OUTSIDE RECORDS SUMMARY | 2024-05-19 08:47 | XMS_ITS ---
Patient Summarization (C-CDA 2.1 CCD) Created on: May 19, 2024 SABRINA VELASQUEZ~EVA BENNETT : 1990 Sex: Female Author Organization Sample organization Care Team Providers Care Private Tutor Name Role Phone Killian, Omid Sandadi Unavailable Unavailabl e MOROCCO, VANESSA Unavailable Unavailable KILLIAN, OMID SANDADI Unavailable Unavailabl e SYSTEM, PROVIDER NOT IN Unavailable Unavaila ble TRACY, NOWWAR GHAZI YASIN Unavailable Unav ailable YAMILA', LOGAN Unavailable Unavailabl e KILLIAN, OMID SANDADI Unavailable Unavailabl e Killian, Omid Sandadi Primary Care Provider KILLIAN, OMID SANDADI Primary Care Unavailabl e ALICAI HUDSON Attending Unavailable MAKAYLA, LIA Attending Unavailable MAKAYLA, LIA Attending Unavailable MIRIAN, MARITZA Attending Unavailable MAKAYLA, LIA Attending Unavailable MIRIAN, MARITZA Attending Unavailable MAKAYLA, LIA Attending Unavailable MIRIAN, MARITZA Attending Unavailable Encounters Encounter Date Encounter Type Care Provider Facility Start: 05-04-2024 End: 05-04-2024 ambulatory MARITZA MIRIAN Not Available Start: 04-19-2024 End: 04-19-2024 ambulatory LIA MAKAYLA Not Available Start: 04-06-2024 End: 04-06-2024 ambulatory MARITZA MIRIAN Not Available Start: 03-23-2024 End: 03-23-2024 ambulatory LIA MAKAYLA Not Available Start: 02-24-2024 End: 02-24-2024 ambulatory MARITZA MIRIAN Not Available Start: 01-27-2024 End: 01-27-2024 ambulatory LIA MAKAYLA Not Available Start: 12-30-2023 End: 12-30-2023 ambulatory LIA MAKAYLA Not Available Start: 12-10-2023 End: 12-10-2023 ambulatory LIA MAKAYLA Not Available Start: 07-14-2020 End: 07-14-2020 Emergency department patient visit OMID KILLIAN [facility] Start: 07-14-2020 End: 07-14-2020 Emergency department patient visit Alicia Hudson Work Phone: [facility] Comment on above: Threatened (Primary Dx) Start: 12-13-2018 End: 12-13-2018 Patient encounter procedure Lauren Hagan [facility] Start: 06-14-2018 End: 06-14-2018 Patient encounter PROVIDER NOT IN SYSTEM [facility] Start: 06-14-2018 End: 06-14-2018 Office outpatient new 30 minutes Provider Not In System [facility] Card[facility] Start: 05-17-2018 End: 05-17-2018 Patient encounter VANESSA EDOUARD [facility] Start: 05-17-2018 End: 05-17-2018 Office outpatient new 30 minutes Vanessa Edouard Work Phone: [facility] Medications Current Medications Medication Drug Class(es) Dates [...] rho(d) immune globulin (RHOPHYLAC) injection 300 mcg Payers Date Payer Category Payer Medicaid [id number] 2020 Medicaid [employer] [facility] MEDICA[employer] xxxxxxxxxxx 2020-Present xxxxxxxxxxx [id number] 2020 Medicaid [id number] 2019 Private Health Insurance [id number] 2017 Unknown [id number] 2017 Unknown [facility] HMO/BECKY/ BECKY PLUS/CHOICE PLUS xxxxxxxxx 2017-Present xxxxxxxxx [id number] 1992 Unknown [id number] 903 1992 Unknown [id number]. 1259 1992 Unknown [id number]. 1259 1992 Unknown [id number] [id number]. 1259 1992 Unknown [id number] [id number]. 1259 1992 Unknown [id number] [id number]. 1259 1992 Unknown [id number] [id number]. 1259 1992 Unknown [id number] [id number]. 1259 1990 Unknown [id number] 1259 Plan of Treatment Date Care Activity Detail Author Start: 07-31-2020 Influenza vaccinatio n given Sequential Influenza Vaccine (#1) [facility] Start: 07-31-2018 Influenza vaccination [facility] Start: 07-31-2018 Influenza vaccinatio n given SEQUENTIAL INFLUENZA VACCINE (#1) [facility] Start: 07-19-2018 End: 07-19-2018 Ambulatory 07/19/2018 Office Visit Dermatology Vanessa Edouard Jr., DO [address] [place] [address] [phone] [facility] Start: 06-14-2018 End: 06-14-2018 Ambulatory 06/14/2018 Office Visit Cardiology System, Provider Not In [facility], Josefina Mattehw MD [address] [place] [address] [phone] [facility] Start: 02-21-2010 Hepatitis C antibody , confirmatory test Hepatitis C Screening [facility] Start: 02-21-2007 HIV screening HIV Screening [facility] Start: 02-21-1995 History and physical examination, annual for health maintenance Wellness Visit [facility] Start: 1992 Screening for malign ant neoplasm of cervix PAP SMEAR [facility] Start: 1992 [facility] End: 07-14-2020 Neisseria gonorrhoeae nucleic acid detection Chlamydia/Gonorrhoeae Amplified RNA Microbiology Routine Once for 1 Occurrences starting 07/14/2020 until 07/14/2020 [facility] Comment on above: Once for 1 Occurrenc es starting 07/14/2020 until 07/14/2020 Neisseria gonorrhoea e nucleic acid detection Chlamydia/Gonorrhoeae Amplified RNA Microbiology Routine 07/14/2020 11:20 AM EDT [facility] Problems Problem Classification Problem Date Documented Date [...] Translations: [Preop cardiovascular exam] Onset: 06-14-2018 06-14-2018 Procedures Date Procedure Procedure Detail Performing Clinician Start: 07-14-2020 Blood group typing Chris smallwood Work Phone: Start: 07-14-2020 PINK TOP Alicia Hudson Work Phone: Start: 07-14-2020 Us uterus 14 wk transabdl 11/30 gestat Chris Pate Work Phone: Start: 07-14-2020 Basic metabolic 2000 panel - Serum or Plasma Chris Pate Work Phone: Start: 07-14-2020 Blood type and Indirect antibody screen panel - Blood hCris Smileye Pate Work Phone: Start: 07-14-2020 Choriogonadotropin [Units/volume] in Serum or Plasma Chris Pate Work Phone: Start: 07-14-2020 Complete blood count with white cell differential, automated Chrismadeline Pate Work Phone: Start: 07-14-2020 Complete blood count with white cell differential, manual Chrismadeline Pate Work Phone: Start: 07-14-2020 LIGHT BLUE TOP Chris Marinelliigh t Work Phone: Start: 07-14-2020 LIGHT GREEN TOP Chris smallwood Work Phone: Start: 07-14-2020 End: 07-14-2020 RAINBOW DRAW Chris smallwood Work Phone: Start: 07-14-2020 Urinalysis Chris smallwood Work Phone: Start: 07-14-2020 Gardnerella vaginalis rRNA assay Chris Pate Work Phone: Results Test Name Value Interpretation Reference Range Facility [facility] VERIFICATIONon 020 ABO and Rh group Nom (Bld) ABO/Rh Verification [facility] BMPon 07-14-2020 Anion gap [Moles/Vol] 6 mmol/L Low 10 - 20 mmol/L [facility] Calcium [Mass/Vol] 9.0 mg/dL 8.4 - 10. 2 mg/dL [facility] Chloride [Moles/Vol] 113 mmol/L High 98 - 108 mmol/L [facility] Creatinine [Mass/Vol] 0.64 mg/dL 0.40 - 1.10 [facility] GFR/1.73 sq M predicted among non-blacks MDRD (S/P/Bld) [Vol rate/Area] The eGFR should be used for monitoring renal function only and not for medication dosing. [facility] GFR/1.73 sq M.predicted CKD-EPI (S/P/Bld) [Vol rate/Area] 122 >=60 mL/min/1.73 m2 [facility] Glucose [Mass/Vol] 71 mg/dL 65 - 99 mg/dL [facility] HCO3 [Moles/Vol] 28 mmol/L 21 - 32 mmol/L [facility] Potassium [Moles/Vol] 3.9 mmol/L 3.5 - 5.1 mmol/L [facility] Sodium [Moles/Vol] 143 mmol/L 135 - 145 mmol/L [facility] Urea nitrogen [Mass/Vol] 8 mg/dL 8 - 25 mg/dL [facility] Urea nitrogen/Creatinine [Mass ratio] 12.5 mg/mg [facility] CBC WITH AUTO DIFFERENTIALon 07-14-2020 Basophils (Bld) [#/Vol] 0.03 10*3/uL [facility] Basophils/100 WBC (Bld) 0.4 % [facility] Eosinophils (Bld) [#/Vol] 0.10 10*3/uL [facility] Eosinophils/100 WBC (Bld) 1.5 % [facility] Erythrocyte distribution width (RBC) [Entitic vol] 12.3 % 11.6 - 14.8 % [facility] Hematocrit (Bld) [Volume fraction] 39.2 % 36 - 46 % [facility] Hemoglobin (Bld) [Mass/Vol] 13.6 g/dL 12 - 16 g/dL [facility] Immature granulocytes (Bld) [#/Vol] 0.02 10*3/uL [facility] Immature granulocytes/100 WBC (Bld) 0.30 % [facility] Comment on above: The IG parameter is the percentage of metamyelocytes, myelocytes and promyelocytes. An immature granulocyte count (IG) of 1% or more suggests the possibility of infection, an IG count of 3% is very likely related to an infection. Lymphocytes (Bld) [#/Vol] 1.95 10*3/uL [facility] Lymphocytes/100 WBC (Bld) 29.2 % [facility] MCH (RBC) [Entitic mass] 30.4 pg 26 - 34 pg [facility] MCHC (RBC) [Mass/Vol] 34.7 g/dL 31 - 37 g/dL [facility] MCV (RBC) [Entitic vol] 87.7 fL 80 - 100 fL [facility] Monocytes (Bld) [#/Vol] 0.48 10*3/uL [facility] Monocytes/100 WBC (Bld) 7.2 % [facility] Neutrophils (Bld) [#/Vol] 4.09 10*3/uL [facility] Neutrophils/100 WBC (Bld) 61.4 % [facility] Nucleated RBC (Bld) [#/Vol] 0.00 10*3/uL [facility] Nucleated RBC/100 WBC (Bld) [Ratio] 0.0 % [facility] Platelet mean volume (Bld) [Entitic vol] 11.8 fL 9.4 - 12.4 fL [facility] Platelets (Bld) [#/Vol] 151 10*3/uL [facility] RBC (Bld) [#/Vol] 4.47 10*6/uL [facility] WBC (Bld) [#/Vol] 6.67 10*3/uL [facility] Hematologyon 07-14-2020 ABO and Rh group Nom (Bld) A Negative [facility] Otheron 07-14-2020 Extra Tube Hold for add-ons[facility] Comment on above: Auto resulted. Interpretation and review of laboratory results Abnormal [facility] Type and Screenon 07-14-2020 Blood group antibody screen Ql Negative [facility] Specimen Expires 07/17/2020 23:59 EST [facility] URINALYSISon 07-14-2020 Bacteria Auto Ql (U) None Seen None Seen /hpf [facility] Bilirubin Ql (U) Negative Negative [facility] Clarity Refractometry automated (U) Clear Clear [facility] Color (U) Yellow Colorless, Yellow [facility] Epithelial cells.squamous Auto (Urine sed) [#/Area] 5 High [facility] Glucose Auto test strip (U) [Mass/Vol] Negative Negative mg/dL [facility] Hemoglobin Auto test strip Ql (U) Moderate Abnormal Negative [facility] Ketones (U) [Mass/Vol] Negative Negative mg/dL [facility] Leukocyte esterase Auto test strip Ql (U) Trace Abnormal Negative [facility] Mucus Auto (Urine sed) [#/Area] Rare None Seen, Rare /lpf [facility] Nitrite Auto test strip Ql (U) Negative Negative [facility] pH (U) 7.0 [pH] [facility] Protein (U) [Mass/Vol] Negative Negative mg/dL [facility] RBC Auto (Urine sed) [#/Area] 2 [facility] Specific gravity (U) [Rel density] 1.011 [facility] Urobilinogen (U) [Mass/Vol] <2.0 <2.0 mg/dL [facility] WBC Auto (Urine sed) [#/Area] 2 [facility] Microscopic examination is performed on all urinalysis samples and only positive findings are reported. The test for blood on the chemical analytic portion of urinalysis may also be positive due to hemoglobinuria and myoglobinuria and if red blood cells are present they are quantified by microscopic examination. [facility] OB 1ST TRIMESTER WITH TRA NSVAGINAL TRANSABDOMINAL AND COLOR FLOW SINGLE FETUSon 07-14-2020 OB 1ST TRIMESTER WITH TRANSVAGINAL TRANSABDOMINAL AND [...] bleeding, spontaneous of is believed most likely. [facility] Workstation ID: [id number] Dictated by: SHAY FERNANDEZ on Sat Jul 14, 2020 12:00:51 PM EDT Transcribed by: PREETI VILLALTA on Sat Jul 14, 2020 12:07:08 PM EDT Finalized by: SHAY FERNANDEZ on Sat Jul 14, 2020 12:57:25 PM EDT Normal [facility] Comment on above: Order Comment: Injur y/Trauma [...] No free peritoneal fluid is seen. [facility] 1. Normal study. 2. With a positive beta hCG, this is a of unknown location. Clinical correlation including serial beta hCG levels is needed differentiate the possibilities which include extremely early , spontaneous of recent , or ectopic gestation which is not directly visualized. With a history of bleeding, spontaneous of is believed most likely. [employer] Workstation ID: [id number] [facility] Interface, Rad In Etelvina Speechq - 07/14/2020 1:00 PM EDT EXAMINATION: ULTRASOUND [...] bleeding, spontaneous of is believed most likely. [employer] Workstation ID: [id number] [facility] VAGINITIS DNA PROBESon 07-14 Olga sp DNA Probe+sig amp Ql (Vag fld) Negative Negative [facility] G. vaginalis DNA Probe+sig amp Ql (Vag fld) Negative Negative [facility] Interpretation and review of laboratory results Normal [facility] T. vaginalis DNA Probe+sig amp Ql (Vag fld) Negative Negative [facility] hCG, Blood, QUANTitativeon 0 07-14-2020 Beta HCG ( test) Ql (U) Males and non females: <5 mIU/mL Females during : 3-4 weeks 9-130 mIU/mL 4-5 weeks 75-2600 mIU/mL 5-6 weeks 850-20,800 mIU/mL 6-7 weeks 4000-100,200 mIU/mL 7-12 weeks 11,500-289,000 mIU/mL 12-16 weeks 18,300-137,000 mIU/mL 16-29 weeks 1,400-53,000 mIU/mL 29-41 weeks 940-60,000 mIU/mL [facility] HCG Qn 438 m[IU]/mL High [facility] Basic Metabolic Panelon 04-0 Anion gap [Moles/Vol] 7.0 mmol/L Normal 6.0-18.0 [facility] Comment on above: Performed By: #### 2 4321-2, 12775-8, 82504-6l8, 1988-03 ####[facility] [address], [place] Calcium [Mass/Vol] 8.6 mg/dL Low 8.9-10.3 [facility] Comment on above: Performed By: #### 2 4321-2, 54457-7, 20720-5f1, 1988-03 ####[facility] [address], [place] Chloride [Moles/Vol] 107 mmol/L Normal 98-107 [facility] Comment on above: Performed By: #### 2 4321-2, 88802-5, 03849-8j3, 1988-03 ####[facility] [address], [place] CO2 [Moles/Vol] 24 mmol/L Normal 22-32 [facility] Comment on above: Performed By: #### 2 4321-2, 29105-5, 37980-1b1, 1988-03 ####[facility] [address], [place] Creatinine [Mass/Vol] 0.67 mg/dL Normal 0.60-1.30 [facility] Comment on above: Performed By: #### 2 4321-2, 05144-3, 17871-4r8, 1988-03 ####[facility] [address], [place] Glucose [Mass/Vol] 105 mg/dL High 70-99 [facility] Comment on above: Result Comment: U pdated ADA Reference Range A normal fasting glucose concentration is less than 100 mg/dL. An impaired fasting glucose concentration is 100-125 mg/dL. A provisional diagnosis of diabetes mellitus can be made when a fasting glucose concentration is greater than 125 mg/dL. Performed By: #### 2 4321-2, 82500-9, 55546-6y8, 1988-03 ####[facility] [address], [place] Potassium [Moles/Vol] 4.1 mmol/L Normal 3.6-5.1 [facility] Comment on above: Performed By: #### 2 4321-2, 86682-0, 93693-8j1, 1988-03 ####[facility] [address], [place] Sodium [Moles/Vol] 138 mmol/L Normal 136-145 [facility] Comment on above: Performed By: #### 2 4321-2, 49447-4, 91829-4h9, 1988-03 ####[facility] [address], [place] Urea nitrogen (BldV) [Mass/Vol] 8 mg/dL Normal 8-20 [facility] Comment on above: Performed By: #### 2 4321-2, 57055-3, 75090-0q0, 1988-03 ####[facility] [address], [place] C-Reactive Proteinon 019 CRP [Mass/Vol] 3.2 mg/dL High <1.0 [facility] Comment on above: Performed By: #### 2 4321-2, 76927-8, 42337-7n8, 1988-03 ####[facility] [address], [place] CBCon 03-01-2019 Erythrocyte distribution width (RBC) [Entitic vol] 14.3 % Normal 11.0-14.8 [facility] Comment on above: Performed By: #### 2 4317-0 ####[facility] [address], [place] Hematocrit (Bld) [Volume fraction] 37.5 % Normal 35.0-45.0 [facility] Comment on above: Performed By: #### 2 4317-0 ####[facility] [address], [place] Hemoglobin (Bld) [Mass/Vol] 12.5 g/dL Normal 12.0-16.0 [facility] Comment on above: Performed By: #### 2 4317-0 ####[facility] [address], [place] MCH (RBC) [Entitic mass] 28.1 Picograms Normal 27.0-34.0 [facility] Comment on above: Performed By: #### 2 7-0 ####[facility] [address], [place] MCHC (RBC) [Mass/Vol] 33.3 g/dL Normal 32.0-36.0 [facility] Comment on above: Performed By: #### 2 4317-0 ####[facility] [address], [place] MCV (RBC) [Entitic vol] 84.6 fL Normal 80.0-97.0 [facility] Comment on above: Performed By: #### 2 4317-0 ####[facility] [address], [place] Platelet mean volume (Bld) [Entitic vol] 10.5 fL Normal 6.2-12.1 [facility] Comment on above: Performed By: #### 2 4317-0 ####[facility] [address] [place], [place] Platelets (Bld) [#/Vol] 231 thou/mcL Normal 142-424 [facility] Comment on above: Performed By: #### 2 4317-0 ####[facility] [address], [place] RBC (Bld) [#/Vol] 4.43 million/mcL Normal 3.80-5.10 [facility] Comment on above: Performed By: #### 2 4317-0 ####[facility] [address], [place] WBC (Bld) [#/Vol] 12.7 thou/mcL High 4.6-10.2 [facility] Comment on above: Performed By: #### 2 4317-0 ####[facility] [address], [place] GFRaaon 03-01-2019 GFR/1.73 sq M predicted among blacks MDRD (S/P/Bld) [Vol rate/Area] mL/min/{1.73_m2} Normal [facility] Comment on above: Result Comment: The MDRD equation has not been validated for those over 70 years, women, patients with serious co-morbid conditions, or with extremes of body size, muscle mass of nutritional status. Performed By: #### 2 4321-2, 11826-5, 04299-0r9, 1988-03 ####[facility] [address], [place] GFRbbon 03-01-2019 GFR/1.73 sq M predicted among non-blacks MDRD (S/P/Bld) [Vol rate/Area] mL/min/{1.73_m2} Normal [facility] Comment on above: Performed By: #### 2 4321-2, 75881-8, 77491-8z6, 1988-03 ####[facility] [address], [place] Glucose POCT (Uploaded)on Glucose [Mass/Vol] 123 mg/dL High 70-99 [facility] Comment on above: Result Comment: Nadia tment ranges and critical values established by Patient Care Services. All follow-up actions were taken by Patient Care Services. Performed By: #### 2 430-8 ####[facility] Glucose [Mass/Vol] 95 mg/dL Normal 70-99 [facility] Comment on above: Result Comment: Nadia tment ranges and critical values established by Patient Care Services. All follow-up actions were taken by Patient Care Services. Performed By: #### 2 430-8 ####[facility] Glucose [Mass/Vol] 93 mg/dL Normal 70-99 [facility] Comment on above: Result Comment: Nadia tment ranges and critical values established by Patient Care Services. All follow-up actions were taken by Patient Care Services. Performed By: #### 2 430-8 ####[facility] Glucose [Mass/Vol] 87 mg/dL Normal 70-99 [facility] Comment on above: Result Comment: Nadia tment ranges and critical values established by Patient Care Services. All follow-up actions were taken by Patient Care [facility]. Performed By: #### 2 430-8 ####[facility] PACU I Nursingon 03-01-2019 PACU I Nursing [facility] PACU I Nursin g Record Summary Primary Physician: Marcellus Driscoll MD Finalized Date/Time: 03/01/19 07:03:14 Pt. Name: EVAABSABRINA E /Sex: 1990 Female Med Rec #: [id number] Physician: Marcellus Driscoll MD Financial #: [id number] Pt. Type: I Room/Bed: [address] [place] [address] Admit/Disch: 02/28/19 08:18:00 - Institution: [facility] OR Main PACU I Case Times Entry 1 In PACU I 02/28/19 14:06:00 Ready for PACU I 02/28/19 15:15:00 Discharge Discharge from PACU 02/28/19 15:15:00 PACU I Discharge NA I Delay Reason Last Modified By: Elissa Shaffer RN 02/28/19 15:45:35 [facility] OR Main PACU I Case Attendees Entry 1 Case Attendee Elissa Shaffer RN Role Suki RN Last Modified By: Elissa Shaffer RN 02/28/19 14:07:29 Finalized By: Sherrie Rendon RN Document Signatures Signed By: Elissa Shaffer RN 02/28/19 15:45 Sherrie Rendon RN 03/01/19 07:03 Normal [facility] Patient Summaryon 03-01-2019 Patient Summary PATIENT DISCHARGE INSTRUCTIONS If you are having an emergency and are not able to reach your physician, CALL 911 or go to the nearest emergency room and take this document with you. [facility] 03/01/19 18:42 [address] [place]. [address] PATIENT INFORMATION Name: SABRINA VELASQUEZ Address: [address] [place] [id number] Age: 29 Years Phone: [phone] : 1990 12:00 MRN: [id number] Sex: Female Race: White Ethnicity: Declined Admitted From: Clinic or [facility] Medical Service: Surgery Nurse Unit/Bed: (CO) 7TWH 7K54-05 Admit Date: 02/28/2019 08:18 PCP: Omid Killian MD PHYSICIANS INVOLVED WITH CARE ------ Attending Physicians: Marcellus Driscoll MD - Surgery Admitting Physician: Marcellus Driscoll MD - Surgery Primary Care Physician:Omid Killian MD, - Consults: None found FOLLOW-UP APPOINTMENTS: Provider: Specialty: Address: Date: Marcellus Driscoll MD Surgery [address] [place] [address] (1) 03/08/19 01:45 pm Comment: Please follow-up at your pre-scheduled appointment. Provider: Specialty: Address: Date: Omid Killian MD [address] [address] (1) Follow-up as needed Provider: Specialty: Address: Date: Post-Op Nutrition Class [address] [address] 03/22/19 Comment: Please call [phone] for more information or to re-schedule. ALLERGIES: [...] doses are changed, or new medications (including nwyv-ocq-wxyemdi products) are added. Ask your doctor if [...] diet. Follow recommendations from your surgeon and talent development consultant regarding you diet. Refer to nutrition information [...] doctor before taking any supplements, herbal or qurc-acg-[id number] medications. Call your physician if any questions [...] suicide hotline, anytime day or night, at 4-822-714-ROQF. Important information about accessing your health information through the [employer] patient portal If you initiated the self-registration process for [employer] during your stay, please check your personal email for an invitation to enroll in [employer] and complete the steps outlined in the email. If you would prefer to enroll while in the hospital, ask a member of your care team. We would be happy to assist you. If you have already enrolled in [employer], go to [email or web address] to login and access your health information. Thank you for choosing [facility]. PATIENT EDUCATION Gastric Bypass Surgery, Care After [...] of caffeine can cause dehydration. ?? A talent development consultant may also give you specific instructions. ?? [...] 06/30/2005 Document Revised: 12/07/2015 Document Reviewed: 04/08/2011 [employer] Patient Education ??2016 [employer] Gastric Bypass Discharge Instructions 1. Follow-up Care [...] dietitian for post-operative class at 2 weeks [phone] ? Call Bariatric Nurse Navigator [phone] with any further questions or concerns Call 911 if you have difficulty breathing or chest [...] provided above is for informational purposes only. [facility] does not promote, condone or endorse all the values expressed herein. The values or opinions they express with regard to the use of artificial contraception are not consistent with the teachings of the [employer] and the Ethical and Holiness Directives for [facility]. If any of these instructions are different from what your doctor tells you, follow your doctor's orders. If you smoke, you should quit. For more information, talk with your doctor or call [phone]-NOW ( ). PATIENT DISCHARGE INSTRUCTION Signature Page for: SABRINA VELASQUEZ Ayden Date/Time: 03/01/2019 18:42:02 A Clinician has explained the information on my discharge instructions and has provided me with a copy. My questions have been answered to my satisfaction. Patient Signature Date/Time Responsible Party Date/Time Relationship to Patient Clinician Signature Date/Time Normal [facility] Glucose POCT (Uploaded)on Glucose [Mass/Vol] 164 mg/dL High 70-99 [facility] Comment on above: Result Comment: Nadia tment ranges and critical values established by Patient Care Services. All follow-up actions were taken by Patient Care Services. Performed By: #### 2 430-8 ####[facility] Glucose [Mass/Vol] 141 mg/dL High 70-99 [facility] Comment on above: Result Comment: Nadia tment ranges and critical values established by Patient Care Services. All follow-up actions were taken by Patient Care Services. Performed By: #### 2 430-8 ####[facility] Glucose [Mass/Vol] 127 mg/dL High 70-99 [facility] Comment on above: Result Comment: Nadia tment ranges and critical values established by Patient Care Services. All follow-up actions were taken by Patient Care Services. Performed By: #### 2 430-8 ####[facility] Glucose [Mass/Vol] 140 mg/dL High 70-99 [facility] Comment on above: Result Comment: Nadia tment ranges and critical values established by Patient Care Services. All follow-up actions were taken by Patient Care Services. Performed By: #### 2 430-8 ####[facility] OR Nursingon 02-28-2019 OR Nursing [facility] OR Nursing Record Summary Primary Physician: Marcellus Driscoll MD Finalized Date/Time: 02/28/19 14:10:30 Pt. Name: SABRINA VELASQUEZ Ayden Garcia/Sex: 1990 Female Med Rec #: [id number] Physician: Marcellus Driscoll MD Financial #: [id number] Pt. Type: I Room/Bed: / Admit/Disch: 02/28/19 08:18:00 - Institution: [facility] OR Case Times Entry 1 Patient Times Patient In Room 02/28/19 11:17:00 Patient Out Room 02/28/19 14:05:00 Surgical Times Start Time 02/28/19 11:53:00 Stop Time 02/28/19 13:58:00 Last Modified By: Abner MARTIN , Disha Aiken 02/28/19 14:09:18 [facility] OR Case Attendees Entry 1 Entry 2 Entry 3 Case Attendee Marcellus Driscoll MD [facility] , Kenny Mckenzie CRNA Role Performed Primary Surgeon Anesthesiologist Nurse Client Services Specialist Time In 02/28/19 11:17:00 02/28/19 11:17:00 02/28/19 11:17:00 Time Out 02/28/19 14:05:00 02/28/19 14:05:00 02/28/19 14:05:00 Procedure Bypass Gastric Bypass Gastric Bypass Gastric Robot(N/A) Robot(N/A) Robot(N/A) Attendee Comment Relief Reason Last Modified By: Abner MARTIN , Disha Levine RN , Disha Levine RN , Disha Aiken 02/28/19 14:09:25 02/28/19 14:09:25 02/28/19 14:09:25 Entry 4 Entry 5 Entry 6 Case Attendee Abner MARTIN , Disha Guaman RN , Litzy Garcia Role Performed network director RN First Scrub Time In 02/28/19 11:17:00 02/28/19 11:17:00 02/28/19 11:17:00 Time Out 02/28/19 14:05:00 02/28/19 14:05:00 02/28/19 14:05:00 Procedure Bypass Gastric Bypass Gastric Bypass Gastric Robot(N/A) Robot(N/A) Robot(N/A) Attendee Comment LUNCH [id number] LUNCH [id number] lunch [id number] Relief Reason Last Modified By: Abner RN , Disha Levine RN , Disha Levine RN , Disha Aiken 02/28/19 14:09:25 02/28/19 14:09:25 02/28/19 14:09:25 Entry 7 Entry 8 Entry 9 Case Attendee Adi MARTIN , Swetha Rao Case, Attendee Other Role Performed network director First Scrub [employer] Research Worker Time In 02/28/19 11:48:00 02/28/19 11:57:00 02/28/19 11:17:00 Time Out 02/28/19 12:40:00 02/28/19 12:53:00 02/28/19 14:05:00 Procedure Bypass Gastric Bypass Gastric Bypass Gastric Robot(N/A) Robot(N/A) Robot(N/A) Attendee Comment [place] MIRANDA Relief Reason Last Modified By: Abner MARTIN , Disha Levine RN , Disha Levine RN , Disha Aiken 02/28/19 14:09:25 02/28/19 14:09:25 02/28/19 14:09:25 [facility] OR General Case Home Organizer 1 OR CO W 11 ASA Class [...] Arrival? No 16FR TEMP SEN W/URINE METER [id number] Inserted By Oly Guaman RN, DC'joel at End of Case? No Last Modified [...] Grounding Pad Thigh right lateral Applied By Rowena MARTIN [facility] Last Modified By: Disha Levine RN 02/28/19 [...] OR Temperature Regulation Entry 1 Unit ID [id number] Site UPPER BODY Last Modified By: Gissell Joshi RN 02/28/19 11:58:29 [facility] OR Final Count Entry 1 Sponges Correct Yes Sharps/Miscellaneous Yes Correct Instruments Correct n/a Count Performed with Litzy Galdamez RN Performing Count Oly Guaman RN Surgeon Notified of Yes Count X-ray Taken [...] By: Disha Levine RN 02/28/19 14:10 Normal [facility] PreOp Nursingon 02-28-2019 PreOp Nursing [facility] PreOp Nursing Record Summary Primary Physician: Marcellus Driscoll MD Finalized Date/Time: 02/28/19 12:08:12 Pt. Name: SABRINA VELASQUEZ/Sex: 1990 Female Med Rec #: [id number] Physician: Marcellus Driscoll MD Financial #: [id number] Pt. Type: I Room/Bed: / Admit/Disch: 02/28/19 08:18:00 - Institution: [facility] OR PreOp Case Times Entry 1 PreOp Case Times In Room Time 02/28/19 08:23:00 Out Room Time 02/28/19 11:15:00 Last Modified By: Gissell Joshi RN 02/28/19 12:08:08 [facility] OR PreOp Case Attendees Entry 1 Case Attendee Laurie Burns RN RN Last Modified By: Laurie Burns RN 02/28/19 08:39:58 Finalized By: Gissell Joshi RN Document Signatures Signed By: Gissell Joshi RN 02/28/19 12:08 Normal [facility] CBC with Differentialon 01-29 Basophils (Bld) [#/Vol] 0.00 thou/mcL Normal 0.00-0.20 [facility] Comment on above: Performed By: #### 5 7021-8 #### [address] Basophils/100 WBC (Bld) 0.4 % Normal 0.0-2.0 [facility] Comment on above: Performed By: #### 5 7021-8 #### [address] Eosinophils (Bld) [#/Vol] 0.10 thou/mcL Normal 0.00-0.70 [facility] Comment on above: Performed By: #### 5 7021-8 #### [address] Eosinophils/100 WBC (Bld) 1.5 % Normal 0.0-7.0 [facility] Comment on above: Performed By: #### 5 7021-8 #### [address] Erythrocyte distribution width (RBC) [Entitic vol] 14.8 % Normal 11.0-14.8 [facility] Comment on above: Performed By: #### 5 7021-8 #### [address] Hematocrit (Bld) [Volume fraction] 41.4 % Normal 35.0-45.0 [facility] Comment on above: Performed By: #### 5 7021-8 #### [address] Hemoglobin (Bld) [Mass/Vol] 13.7 g/dL Normal 12.0-16.0 [facility] Comment on above: Performed By: #### 5 7021-8 #### [address] Lymphocytes (Bld) [#/Vol] 1.80 thou/mcL Normal 1.00-4.80 [facility] Comment on above: Performed By: #### 5 7021-8 #### [place] [address] [place], [place] Lymphocytes/100 WBC (Bld) 21.5 % Low 22.0-44.0 [facility] Comment on above: Performed By: #### 70-8 #### [address] MCH (RBC) [Entitic mass] 28.6 Picograms Normal 27.0-34.0 [facility] Comment on above: Performed By: #### 70-8 #### [address] MCHC (RBC) [Mass/Vol] 33.2 g/dL Normal 32.0-36.0 [facility] Comment on above: Performed By: #### 70-8 #### [address] MCV (RBC) [Entitic vol] 86.0 fL Normal 80.0-97.0 [facility] Comment on above: Performed By: #### 7021-8 #### [address] Monocytes (Bld) [#/Vol] 0.60 thou/mcL Normal 0.00-0.90 [facility] Comment on above: Performed By: #### 70-8 #### [address] Monocytes/100 WBC (Bld) 7.5 % Normal 0.0-12.0 [facility] Comment on above: Performed By: #### 7021-8 #### [address] Neutrophils (Bld) [#/Vol] 5.90 thou/mcL Normal 1.80-7.70 [facility] Comment on above: Performed By: #### 7021-8 #### [address] Neutrophils/100 WBC (Bld) 69.1 % Normal 40.0-70.0 [facility] Comment on above: Performed By: #### 5 7021-8 #### [facility] [address] [place], [place] Platelet mean volume (Bld) [Entitic vol] 11.3 fL Normal 6.2-12.1 [facility] Comment on above: Performed By: #### 5 7021-8 #### [facility] [address], [place] Platelets (Bld) [#/Vol] 194 thou/mcL Normal 142-424 [facility] Comment on above: Performed By: #### 5 7021-8 #### [place] [address] [place], [place] RBC (Bld) [#/Vol] 4.81 million/mcL Normal 3.80-5.10 [facility] Comment on above: Performed By: #### 5 7021-8 #### [place] [address], [place] WBC (Bld) [#/Vol] 8.5 thou/mcL Normal 4.6-10.2 [facility] Comment on above: Performed By: #### 5 7021-8 #### [place] [address] [place], [place] Comprehensive Metabolic Pane satnam 2019 Albumin [Mass/Vol] 3.3 g/dL Low 3.5-4.8 [facility] Comment on above: Performed By: #### 2 4323-8, 19128-0b2, 75831-7 ####[facility] [address], [place] ALP [Catalytic activity/Vol] 72 Units/L Normal 32-91 [facility] Comment on above: Performed By: #### 2 4323-8, 73932-8l0, 00784-6 ####[facility] [address], [place] ALT [Catalytic activity/Vol] 18 Units/L Normal 14-63 [facility] Comment on above: Performed By: #### 2 4323-8, 31847-2f4, 84907-7 ####[facility] [address], [place] Anion gap [Moles/Vol] 10.0 mmol/L Normal 6.0-18.0 [facility] Comment on above: Performed By: #### 2 4323-8, 69187-2z4, 82998-1 ####[facility] [address], [place] AST [Catalytic activity/Vol] 17 Units/L Normal 15-41 [facility] Comment on above: Performed By: #### 2 4323-8, 90569-4g7, 81505-0 ####[facility] [address], [place] Bilirubin [Mass/Vol] 0.7 mg/dL Normal 0.3-1.2 [facility] Comment on above: Performed By: #### 2 4323-8, 36326-8d5, 25943-9 ####[facility] [address], [place] Calcium [Mass/Vol] 8.5 mg/dL Low 8.9-10.3 [facility] Comment on above: Performed By: #### 2 4323-8, 62343-0f9, 76271-6 ####[facility] [address], [place] Chloride [Moles/Vol] 104 mmol/L Normal 98-107 [facility] Comment on above: Performed By: #### 2 4323-8, 65126-1t5, 61432-0 ####[facility] [address], [place] CO2 [Moles/Vol] 22 mmol/L Normal 22-32 [facility] Comment on above: Performed By: #### 2 4323-8, 32880-4j2, 96164-6 ####[facility] [address], [place] Creatinine [Mass/Vol] 0.79 mg/dL Normal 0.60-1.30 [facility] Comment on above: Performed By: #### 2 4323-8, 60509-4j9, 11441-3 ####[facility] [address], [place] Glucose [Mass/Vol] 93 mg/dL Normal 70-99 [facility] Comment on above: Result Comment: U pdated ADA Reference Range A normal fasting glucose concentration is less than 100 mg/dL. An impaired fasting glucose concentration is 100-125 mg/dL. A provisional diagnosis of diabetes mellitus can be made when a fasting glucose concentration is greater than 125 mg/dL. Performed By: #### 2 4323-8, 16116-4b2, 77215-3 ####[facility] [address], [place] Potassium [Moles/Vol] 4.1 mmol/L Normal 3.6-5.1 [facility] Comment on above: Performed By: #### 2 4323-8, 15122-8j5, 59431-5 ####[facility] [address], [place] Protein [Mass/Vol] 6.0 g/dL Low 6.1-7.9 [facility] Comment on above: Performed By: #### 2 4323-8, 80750-0l7, 03718-3 ####[facility] [address], [place] Sodium [Moles/Vol] 136 mmol/L Normal 136-145 [facility] Comment on above: Performed By: #### 2 4323-8, 68049-8g6, 66245-2 ####[facility] [address], [place] Urea nitrogen (BldV) [Mass/Vol] 13 mg/dL Normal 8-20 [facility] Comment on above: Performed By: #### 2 4323-8, 47889-8w3, 07480-7 ####[facility] [address], [place] GFRaaon 2019 GFR/1.73 sq M predicted among blacks MDRD (S/P/Bld) [Vol rate/Area] mL/min/{1.73_m2} Normal [facility] Comment on above: Result Comment: The MDRD equation has not been validated for those over 70 years, women, patients with serious co-morbid conditions, or with extremes of body size, muscle mass of nutritional status. Performed By: #### 2 4323-8, 79766-2r2, 14442-3 ####[place] [address] [place], [place] GFRbbon 2019 GFR/1.73 sq M predicted among non-blacks MDRD (S/P/Bld) [Vol rate/Area] mL/min/{1.73_m2} Normal [facility] Comment on above: Performed By: #### 2 4323-8, 64042-7t0, 69334-9 ####[place] [address], [place] Glycohemoglobin (HGB A1C) Emanuel tahirharman 2019 HbA1c (Bld) [Mass fraction] 5.0 % tl hgb Normal <5.6 [facility] Comment on above: Result Comment: U pdated ADA Reference Range HbA1c values of 5.7-6.4 percent indicate an increased risk for developing diabetes mellitus. HbA1c values greater than or equal to 6.5 percent are diagnostic of diabetes mellitus. For diagnosis of diabetes in individuals without unequivocal hyperglycemia, results should be confirmed by repeat testing. Performed By: #### 4 549-2 ####[address] Partial Thromboplastin Time (aPTT)on 2019 aPTT Coag (PPP) [Time] 29.6 Sec Normal 23.6-35.3 [facility] Comment on above: Performed By: #### 3 173-2, 5902-2 ####[facility], [address] [place] [address]. Prothrombin Timeon 9 INR Coag (Bld) [Relative time] 1.00 {INR} Normal [facility] Comment on above: Result Comment: The recommended therapeutic INR range for most cardiac indications is 2.0-3.0. For high intensity therapy(ie.mechanical heart valves), the recommended range is 2.5-3.5. Performed By: #### 3 173-2, 5902-2 ####[facility], [address] [place] [address]. PT Coag (PPP) [Time] 11.5 Sec Normal 9.3-12.4 [facility] Comment on above: Performed By: #### 3 173-2, 5902-2 ####[facility], [address] [place] [address]. XR Chest 2 Viewson 9 XR Chest 2 views Two-view chest exam Indication: pre-op. Cough for the past week. COMPARISON: E 66.01 FINDINGS: The lungs are clear and the costophrenic angles are sharp. The cardiomediastinal silhouette and bones are normal. IMPRESSION: Normal chest. [facility] thanks you for the opportunity to care for your patient. Workstation ID: [id number] FINAL REPORT Dictated By: Jean Hull MD 2019 08:47 Assigned Physician: Jean Hull MD Reviewed and Electronically Signed By: Jean Hull MD 2019 08:48 Transcribed by: GREGORY 2019 08:47 Technologist: SHAKA Carranza [facility] OR Nursingon 09-17-2018 OR Nursing [facility] OR Nursing Record Summary Primary Physician: Tristan Dickey MD Finalized Date/Time: 09/17/18 07:39:53 Pt. Name: SABRINA VELASQUEZ/Sex: 1990 Female Med Rec #: [id number] Physician: Financial #: [id number] Pt. Type: I Room/Bed: / Admit/Disch: 09/16/18 13:46:00 - 09/16/18 15:20:00 Institution: [facility] Case Times Entry 1 Patient Times Patient In Room 09/16/18 14:20:00 Patient Out Room 09/16/18 14:30:00 Anesthesia Times Anes Start 09/16/18 14:18:00 Anes Stop 09/16/18 14:33:00 Surgical Times Start Time 09/16/18 14:26:00 Stop Time 09/16/18 14:28:00 Last Modified By: Sherrie Rendon RN 09/17/18 07:37:51 General Comments: ANESTHESIA TIME START AND STOP ADDED PER ANESTHESIA PAPER RECORD KEILA MARTIN [facility] [place] [facility] Case Attendees Entry 1 Entry 2 Entry 3 Case Attendee Keli URBINA , Tristan Delvalle CONVEX GRINDER OPERATOR , Charbel Wolf DO Role Performed Primary Surgeon Nurse Client Services Specialist Anesthesiologist Time In 09/16/18 14:20:00 09/16/18 14:20:00 09/16/18 14:20:00 Time Out 09/16/18 14:30:00 09/16/18 14:30:00 09/16/18 14:30:00 Procedure Egd_(N/A) Egd_(N/A) Egd_(N/A) Attendee Comment Relief Reason Last Modified By: Breanna RN , Afia Carlos RN , Afia Carlos RN , Afia 09/16/18 14:31:12 09/16/18 14:31:12 09/16/18 14:31:12 Entry 4 Entry 5 Case Attendee Breanna RN , Rosalio Cruz RN Role Performed network director Transmitter Operator Time In 09/16/18 14:20:00 09/16/18 14:20:00 Time Out 09/16/18 14:30:00 09/16/18 14:30:00 Procedure Egd_(N/A) Egd_(N/A) Attendee Comment Relief Reason Last Modified By: Breanna RN , Afia Carlos RN , Afia 09/16/18 14:31:12 09/16/18 14:31:12 [facility] General Case Home Organizer 1 OR CO W EN 02 ASA [...] PER SCANNED ANES. PAPER RECORD KEILA AARON [facility] Surgical Procedures Entry 1 Procedure Egd_ Primary Procedure Yes Modifiers N/A Procedure Wound None Class Primary Surgeon Tristan Dcikey MD Surgical Service General Surgery Anesthesia Type MAC Procedure Performed (EGD) ESOPHAGOGASTRODUODENO SCO PY Start 09/16/18 14:26:00 Stop 09/16/18 14:28:00 Last Modified By: Sherrie Rendon RN 09/17/18 07:39:25 General Comments: ANESTHESIA TYPE CHANGED PER PAPER ANESTHESIA RECORD KEILA MARTIN [facility] Fire Risk Assessment Entry 1 Alcohol [...] 02 (less than 30% when able) [facility] Interventional Checklist Entry 1 TIme Out Verified [...] Modified By: Afia Carlos RN 09/16/18 14:22:19 [facility] Cheng Score Entry 1 Activity 2-Able to move four Circulation 2-BP + or - 20% extremities voluntarily systolic of on command preanesthetic level Consciousness 2-Fully Awake Respiratory 2-Able to breathe deeply and cough freely Saturation 2- Able to maintain O2 saturation >92% on room air Last Modified By: Afia Carlos RN 09/16/18 14:05:22 [facility] Pain Assessment Entry 1 Pain Intensity Verbal Numeric Rating Is Pain Level Yes Scale Scored Scale (Adults) Acceptable? Pain Score (0-10) 0 Last Modified By: Afia Carlos RN 09/16/18 14:22:30 [facility] Patient Debriefing Entry 1 Verify name [...] 07:39 Sherrie Rendon RN 09/17/18 07:39 Normal [facility] Post PACU Nursingon 09-17-20 18 Post PACU Nursing [facility] PACU II Nursing Record Summary Primary Physician: Tristan Dickey MD Finalized Date/Time: 09/17/18 07:40:27 Pt. Name: SABRINA VELASQUEZ/Sex: 1990 Female Med Rec #: [id number] Physician: Financial #: [id number] Pt. Type: I Room/Bed: / Admit/Disch: 09/16/18 13:46:00 - 09/16/18 15:20:00 Institution: [facility] PACU II Case Times Entry 1 In PACU II 09/16/18 14:34:00 Ready for PACU II 09/16/18 14:49:00 Discharge Discharge from PACU 09/16/18 15:20:00 II Last Modified By: Rocio Turcios RN 09/16/18 15:26:17 [facility] PACU II Case Attendees Entry 1 Case Attendee Rocio Turcios RN Role Performed RN Last Modified By: Rocio Turcios RN 09/16/18 15:04:00 Finalized By: Sherrie Rendon RN Document Signatures Signed By: Sherrie Rendon RN 09/17/18 07:35 Sherrie Rendon RN 09/17/18 07:40 Normal [facility] PreOp Nursingon 09-17-2018 PreOp Nursing [facility]o PreOp Nursing Record Summary Primary Physician: Tristan Dickey MD Finalized Date/Time: 09/17/18 07:36:42 Pt. Name: SABRINA VELASQUEZ./Sex: 1990 Female Med Rec #: [id number] Physician: Financial #: [id number] Pt. Type: I Room/Bed: / Admit/Disch: 09/16/18 [...] PreOp Case Attendees Entry 1 Case Attendee Altagracia Morales RN Role Performed RN Last Modified By: Altagracia Morales RN 09/16/18 14:00:58 Finalized By: Sherrie Rendon RN Document Signatures Signed By: Sherrie Rendon RN 09/17/18 07:36 Sherrie Rendon RN 09/17/18 07:36 Normal [facility] Patient Summaryon 09-16-2018 Patient Summary PATIENT DISCHARGE INSTRUCTIONS If you are having an emergency and are not able to reach your physician, CALL 911 or go to the nearest emergency room and take this document with you. Roney Etienne 09/16/18 14:45 [address] [place]. [address] PATIENT INFORMATION Name: SABRINA VELASQUEZ Address: [address] [place] [id number] Age: 28 Years Phone: [phone] : 1990 12:[birth year] MRN: [id number] Sex: Female Race: White Ethnicity: Declined Admitted From: Clinic or [facility] Medical Service: Surgery Nurse Unit/Bed: (OR) [facility] N/A Admit Date: 09/16/2018 13:46 PCP: Omid [...] doses are changed, or new medications (including dkzt-gbm-umxebqa products) are added. Ask your doctor if [...] suicide hotline, anytime day or night, at 7-153-879-ZZMJ. Important information about accessing your health information through the [facility] [employer] patient portal If you initiated the self-registration process for [employer] during your stay, please check your personal email for an invitation to enroll in [employer] and complete the steps outlined in the email. If you would prefer to enroll while in the hospital, ask a member of your care team. We would be happy to assist you. If you have already enrolled in [employer], go to [email or web address] to login and access your health information. Thank you for choosing [facility] [employer]. PATIENT EDUCATION Esophagogastroduodeno scopy, Care After Refer [...] 11/02/2013 Document Revised: 12/07/2015 Document Reviewed: 11/02/2013 [employer] Patient Education ?2016 [employer] VIRUSES OR BACTERIA: WHAT'S GOT YOU [...] Relationship to Patient Clinician Signature Date/Time Normal [facility] ECG 12 leadon 06-14-2018 Atrial Rate Invalid Interpretation Code [facility] P [place] Invalid Interpretation Code [facility] P-R Interval Invalid Interpretation Code [facility] Q-T Interval Invalid Interpretation Code [facility] Q-T Interval (corrected) Invalid Interpretation Code [facility] QRS Duration Invalid Interpretation Code [facility] QTC Calculation (Bezet) Invalid Interpretation Code [facility] R [place] Invalid Interpretation Code [facility] T [place] Invalid Interpretation Code [facility] Ventricular Rate Invalid Interpretation Code [facility] Social History Date Type Detail Facility Start: 07-14-2020 Tobacco smoking status NHIS Current some day smoker [facility] Start: 07-14-2020 Alcohol intake 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-dr 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 groomer of alcohol (finding) [facility] Start: 05-17-2018 End: 06-14-2018 Tobacco smoking status NHIS Never smoker [facility] Sex Assigned At Not on file [facility] Exposure to SARS-CoV -2 (event) Not sure [facility] Vital Signs Date Time Vital Sign Value Performing Clinician Abbey ruiz 07-14-2020 13:00-0400 BP Diastolic 78 mm[Hg] Alicia Hudson [facility] 07-14-2020 13:00-0400 BP Systolic 123 mm[Hg] Alicia Hudson [facility] 07-14-2020 13:00-0400 Pulse (Heart Rate) 55 /min Alicia Hudson [facility] 07-14-2020 13:00-0400 Pulse Oximetry 100 % Alicia Hudson [facility] 07-14-2020 10:06-0400 Body Temperature 98.8 [degF] Aliica Hudson [facility] 07-14-2020 10:04-0400 BMI (Body Mass Index) 43.58 kg/m2 Alicia Hudson [facility] 07-14-2020 10:04-0400 Body weight 122.47 kg Alicia Hudson [facility] 07-14-2020 10:04-0400 Height 167.6 cm Alicia Hudson [facility] 07-14-2020 10:04-0400 Respiratory Rate 16 /[facility] 06-14-2018 09:16-0400 BMI (Body Mass Index) 63.24 kg/m2 [facility] 06-14-2018 09:16-0400 BP Diastolic 84 mm[Hg] [facility] 06-14-2018 09:16-0400 BP Systolic 128 mm[Hg] [facility] 06-14-2018 09:16-0400 Height 167.6 cm [facility] 06-14-2018 09:16-0400 Pulse (Heart Rate) 64 /min [facility] 06-14-2018 09:16-0400 Pulse Oximetry 98 % [facility] 06-14-2018 09:16-0400 Weight 177.72 kg [facility] Assessments Note Patient: SABRINA VELASQUEZ Age: 29 years Sex: Female : 1990 [...] for home later today Logan Driscoll MD [phone] SURGERY PROGRESS NOTE SUBJECTIVE: Patient denies abd [...] FoundDocuments on File Type Date Recorded Patient Dairy Tester Expl anation Advance Directives and Tereza robledo Will 07/14/2020 11:09 AM History of Present Illness * Lauren Hagan MA - 12/13/2018 4:27 PM EST Warning of termination sent due to no shows on 07/19 and 12/13 in this encounter Hospital Course Note CLINICAL SUMMARY Please take this summary document to your follow up appointments. [facility] 09/16/18 14:45 [address] [place]. [address] PATIENT INFORMATION Name: SABRINA VELASQUEZ Address: [address] [place] [id number] Age: 28 Years Phone: [phone] : 1990 12:[birth year] MRN: [id number] Sex: Female Race: White Ethnicity: Declined Admitted From: Clinic or [facility] Medical Service: Surgery Nurse Unit/Bed: (CO) [id number] N/A Admit Date: 09/16/2018 13:46 PCP: Donaldo URBINA , Omid Almeida PHYSICIANS INVOLVED WITH CARE Attending Physicians: Tristan Dickey MD - Surgery Admitting Physician: None found Primary Care Physician:Omid Killian MD, - Consults: None found Problems Active Obesity IBS (irritable bowel syndrome) GERD (gastroesophageal reflux disease) Murmur Allergies NKA Procedures Tonsillectomy (2009) MEASUREMENTS: Last (more content not included)... Note CLINICAL SUMMARY Please take this summary document to your follow up appointments. [facility] 03/01/19 18:42 [address] [place]. [address] PATIENT INFORMATION Name: SABRINA VELASQUEZ Address: [address] [place] [id number] Age: 29 Years Phone: [phone] : 1990 12:00 MRN: ([id number] Sex: Female Race: White Ethnicity: Declined Admitted From: Clinic or [facility] Medical Service: Surgery Nurse Unit/Bed: (OR) 7TWH [id number] Admit Date: 02/28/2019 08:18 PCP: Omid Killian MD PHYSICIANS INVOLVED WITH CARE Attending Physicians: Marcellus Driscoll MD - Surgery Admitting Physician: Marcellus Driscoll MD - Surgery Primary Care Physician:Omid Killian MD, - Consults: None found Problems Active Morbid (severe) obesity due to excess calories Obesity IBS (irritable bowel syndrome) GERD (gastroesophageal reflux (more content not included)... Note Patient: SABRINA VELASQUEZ MRN : ([id number] Age: 29 years Sex: Female : 1990 [...] GERD, IBS, and heart murmur presented to [facility] on 02/28/2019 for an elective robotically assisted laparoscopic [place]-en-Y gastric bypass with DrCarlos by Purnima albarran an had an extensive preoperative workup. Patient tolerated the procedure well and was transferred to PACU in stable condition where she had an uneventful recovery. His then tra (more content not included)... Note Patient: SABRINA VELASQUEZ Age: 29 years Sex: Female : 1990 [...] for home later today Logan Driscoll MD [phone] SURGERY PROGRESS NOTE SUBJECTIVE: Patient denies abd [...] (02/28 12:00 (more content not included)... Note [facility] Patient Name: Sabrina Velasquez Procedure Date: 09/16/2018 1:40 PM Date of : 1990 Age: 28 Gender: Female Procedure: Upper GI endoscopy Indications: Suspected esophageal reflux, Preoperative assessment for bariatric surgery to treat morbid obesity Providers: TRISTAN DICKEY MD , KASIE DELVALLE CRNA, CHARBEL STEWART MD Referring MD: OMID KILLIAN MD Requesting Provider: Medicines: Monitored Anesthesia Care Complications: No immediate complications. Procedure: Pre-Anesthesia Assessment: - Prior to the procedure, a History and Physical was performed, and patient medications, allergies and sensitivities were reviewed. The patient's tolerance of previous anesthesia was reviewe (more content not included)... Note Patient: SABRINA VELASQUEZ Age: 28 years Sex: Female : 1990 Associated Diagnoses: None Author: Kasie Delvalle CRNA Supervising Physician Comments Documentation By: Certified Registered Nurse Client Services Specialist. Subjective Subjective: Patient participated in the evaluation: [...] concluded. Note Patient: SABRINA VELASQUEZ MRN : [id number] [facility]: [phone] Age: 29 years Sex: Female : 1990 [...] (more content not included)... Procedure Findings Note [facility] Patient Name: Sabrina Velasquez Procedure Date: 09/16/2018 1:40 PM Date of : 1990 Age: 28 Gender: Female Procedure: Upper GI endoscopy Indications: Suspected esophageal reflux, Preoperative assessment for bariatric surgery to treat morbid obesity Providers: TRISTAN DICKEY MD , KASIE DELVALLE CRNA, CAHRBEL STEWART MD Referring MD: OMID KILLIAN MD Requesting Provider: Medicines: Monitored Anesthesia Care Complications: No immediate complications. Procedure: Pre-Anesthesia Assessment: - Prior to the procedure, a History and Physical was performed, and patient medications, allergies and sensitivities were reviewed. The patient's tolerance of previous anesthesia was reviewe (more content not included)... Note Patient: SABRINA VELASQUEZ MRN: [id number] Age: 28 years Sex: Female : 1990 Associated Diagnoses: None Author: Kasie Delvalle CRNA Supervising Physician Comments Documentation By: Certified Registered Nurse Client Services Specialist. Subjective Subjective: Patient participated in the evaluation: [...] concluded. Note Patient: SABRINA VELASQUEZ MRN : [facility])-[id number] Age: 29 years Sex: Female : 1990 [...] sent through Care Everywhere. * Miscarriage: Threatened (Lithuanian) documented in this encounter Additional Source Comments [...] Hudson MD ED Attending Physician [facility] documented in this encounter INFORMATION SOURCE (unrecogn ized section and content) DATE CREATED AUTHOR 06/15/2018 [facility] DATE CREATED AUTHOR AUTHOR'S ORGANIZ ATION 08/09/2019 [facility] DATE CREATED AUTHOR AUTHOR'S ORGANIZ ATION 12/27/2020 [facility] DATE CREATED AUTHOR AUTHOR'S ORGANIZ ATION 05/05/2024 [facility] EPIC Reason for Visit (unrecogniz ed section and content) Reason Comments Vaginal Bleeding Chris Pate PA-C - 07/14/2020 10:43 AM EDTWDorinda roblero RN - 07/14/2020 10:07 AM JANATDorinda Parikh RN - 07/14/2020 10:04 AM EDT ED Notes (unrecognized secti on and content) ED PROVIDER NOTE [facility] NAME: Sabrina Velasquez AGE: 30 y.o. : 1990 VISIT DATE: 07/14/2020 CSN: [id number] PCP: Omid Killian MD Clinical Impression: 1. Threatened ED Disposition ED Disposition Condition Comment Discharge Stable Sabrina Velasquez discharged to home/self care in stable condition. Follow-up Information 1. Roni Clemens MD. Specialty: Obstetrics/Gynecology Why: For recheck of today's symptoms [address] [place] [address] 2. [facility]. Specialty: Emergency Medicine Why: As needed, If symptoms worsen [address] [place] [address] Contact information for after-discharge care Follow-up information [...] this point clinically. Patient has appointment with ELECTROLOGIST on Thursday. Considered implantation bleeding, threatened , [...] reports she is scheduled to see her ELECTROLOGIST Dr. Clemens next week. Patient denies any [...] file Gets together: Not on file Attends mormon service: Not on file Active member of [...] nursing note reviewed. Exam conducted with a behavior interventionist present. Constitutional: Appearance: Normal appearance. HENT: Head: [...] Colorless, Yellow Clarity, Urine Clear Clear Specific [place] 1.011 1.005 - 1.025 pH, Urine 7.0 [...] bleeding, spontaneous of is believed most likely. [facility] Workstation ID: [id number] Procedures The patient has [...] hypertension. . Chris Pate PA-C [facility] Chris Pate PA-C 07/14/20 1340 [...] BE BASED ON THE PRIMARY CLINICAL RECORDS. [employer] provides no warranty or guarantee of the accuracy or completeness of information in this document.
== END 2024-05-19 08:28 | disposition home or self-care (01) ==
LOC: NOMS 08:28
PROVIDERS: Visit Provider Physician Assistant
DX: O26.843 Uterine size-date discrepancy, third trimester (principal); Z3A.34 34 weeks gestation of pregnancy
CPT/HCPCS: 76816

== ENCOUNTER 2024-05-27 07:08 | Outpatient (OUT) | payer OTHER, SELFPAY ==
--- OUTSIDE RECORDS SUMMARY | 2024-05-27 07:10 | XMS_ITS | CCD ---
Author Organization [facility] Inform ion Partnership [facility] Care Team Providers Care Building Supervisor Name Role Phone Killian, Omid Sandadi Unavailable Unavailabl e MOROCCO, VANESSA Unavailable Unavailable KILLIAN, OMID SANDADI Unavailable Unavailabl e SYSTEM, PROVIDER NOT IN Unavailable Unavaila ble TRACY, NOWWAR GHAZI YASIN Unavailable Unav ailable YAMILA'LOGAN Unavailable Unavailabl e KILLIAN, OMID SANDADI Unavailable Unavailabl e Killian, Omid Sandadi Primary Care Provider KILLIAN, OMID SANDADI Primary Care Unavailabl e ALICIA HUDSON Attending Unavailable MAKAYALLIA Attending Unavailable MAKAYLA, LIA Attending Unavailable MIRIANMARITZA Attending Unavailable MAKAYLA, LIA Attending Unavailable MIRIAN, MARITZA Attending Unavailable MAKAYLA, LIA Attending Unavailable MIRIAN MARITZA Attending Unavailable MAKAYLA, LIA Attending Unavailable Medications Current Medications Medication Drug [...] Start: 05-17-2018 take 1 tablet by nimesh once daily, then take 1 tablet by [...] Results Test Name Value Interpretation Reference Range [facility] VERIFICATIONon 020 ABO and Rh group Nom (Bld) A Negative [facility] ABO and Rh group Nom (Bld) ABO/Rh Verification [facility] BMPon 07-14-2020 Anion gap [Moles/Vol] 6 mmol/L Low 10 - 20 mmol/L [facility] Calcium [Mass/Vol] 9.0 mg/dL 8.4 - 10. 2 mg/dL [facility] Chloride [Moles/Vol] 113 mmol/L High 98 - 108 mmol/L [facility] Creatinine [Mass/Vol] 0.64 mg/dL 0.40 - 1.10 [facility] GFR/1.73 sq M predicted among non-blacks MDRD (S/P/Bld) [Vol rate/Area] The eGFR should be used for monitoring renal function only and not for medication dosing. [facility] GFR/1.73 sq M.predicted CKD-EPI (S/P/Bld) [Vol rate/Area] 122 >=60 mL/min/1.73 m2 [facility] Glucose [Mass/Vol] 71 mg/dL 65 - 99 mg/dL [facility] HCO3 [Moles/Vol] 28 mmol/L 21 - 32 mmol/L [facility] Potassium [Moles/Vol] 3.9 mmol/L 3.5 - 5.1 mmol/L [facility] Sodium [Moles/Vol] 143 mmol/L 135 - 145 mmol/L [facility] Urea nitrogen [Mass/Vol] 8 mg/dL 8 - 25 mg/dL [facility] Urea nitrogen/Creatinine [Mass ratio] 12.5 mg/mg [facility] CBC WITH AUTO DIFFERENTIALon 07-14-2020 Basophils (Bld) [#/Vol] 0.03 10*3/uL [facility] Basophils/100 WBC (Bld) 0.4 % [facility] Eosinophils (Bld) [#/Vol] 0.10 10*3/uL [facility] Eosinophils/100 WBC (Bld) 1.5 % [facility] Erythrocyte distribution width (RBC) [Entitic vol] 12.3 % 11.6 - 14.8 % [facility] Hematocrit (Bld) [Volume fraction] 39.2 % 36 - 46 % [facility] Hemoglobin (Bld) [Mass/Vol] 13.6 g/dL 12 - 16 g/dL [facility] Immature granulocytes (Bld) [#/Vol] 0.02 10*3/uL [facility] Immature granulocytes/100 WBC (Bld) 0.30 % [facility] Comment on above: The IG parameter is the percentage of metamyelocytes, myelocytes and promyelocytes. An immature granulocyte count (IG) of 1% or more suggests the possibility of infection, an IG count of 3% is very likely related to an infection. Lymphocytes (Bld) [#/Vol] 1.95 10*3/uL [facility] Lymphocytes/100 WBC (Bld) 29.2 % [facility] MCH (RBC) [Entitic mass] 30.4 pg 26 - 34 pg [facility] MCHC (RBC) [Mass/Vol] 34.7 g/dL 31 - 37 g/dL [facility] MCV (RBC) [Entitic vol] 87.7 fL 80 - 100 fL [facility] Monocytes (Bld) [#/Vol] 0.48 10*3/uL [facility] Monocytes/100 WBC (Bld) 7.2 % [facility] Neutrophils (Bld) [#/Vol] 4.09 10*3/uL [facility] Neutrophils/100 WBC (Bld) 61.4 % [facility] Nucleated RBC (Bld) [#/Vol] 0.00 10*3/uL [facility] Nucleated RBC/100 WBC (Bld) [Ratio] 0.0 % [facility] Platelet mean volume (Bld) [Entitic vol] 11.8 fL 9.4 - 12.4 fL [facility] Platelets (Bld) [#/Vol] 151 10*3/uL [facility] RBC (Bld) [#/Vol] 4.47 10*6/uL [facility] WBC (Bld) [#/Vol] 6.67 10*3/uL [facility] Otheron 07-14-2020 Extra Tube Hold for add-ons. [facility] Comment on above: Auto resulted. Interpretation and review of laboratory results Abnormal [facility] Type and Screenon 07-14-2020 ABO and Rh group Nom (Bld) A Negative [facility] Blood group antibody screen Ql Negative [facility] Specimen Expires 07/17/2020 23:59 EST [facility] URINALYSISon 07-14-2020 Bacteria Auto Ql (U) None Seen None Seen /hpf [facility] Bilirubin Ql (U) Negative Negative [facility] th Clarity Refractometry automated (U) Clear Clear [facility] Color (U) Yellow Colorless, Yellow [facility] Epithelial cells.squamous Auto (Urine sed) [#/Area] 5 High [facility] Glucose Auto test strip (U) [Mass/Vol] Negative Negative mg/dL [facility] Hemoglobin Auto test strip Ql (U) Moderate Abnormal Negative [facility] Interpretation and review of laboratory results Abnormal [facility] Ketones (U) [Mass/Vol] Negative Negative mg/dL [facility] Leukocyte esterase Auto test strip Ql (U) Trace Abnormal Negative [facility] Mucus Auto (Urine sed) [#/Area] Rare None Seen, Rare /lpf [facility] Nitrite Auto test strip Ql (U) Negative Negative [facility] pH (U) 7.0 [pH] [facility] Protein (U) [Mass/Vol] Negative Negative mg/dL [facility] RBC Auto (Urine sed) [#/Area] 2 [facility] Specific gravity (U) [Rel density] 1.011 [facility] Urobilinogen (U) [Mass/Vol] <2.0 <2.0 mg/dL [facility] WBC Auto (Urine sed) [#/Area] 2 [facility] Microscopic examination is performed on all urinalysis samples and only positive findings are reported. The test for blood on the chemical analytic portion of urinalysis may also be positive due to hemoglobinuria and myoglobinuria and if red blood cells are present they are quantified by microscopic examination. [facility] OB 1ST TRIMESTER WITH TRA [...] bleeding, spontaneous of is believed most likely. [facility] Workstation ID: [id number] Dictated by: SHAY FERNANDEZ on Sat Jul 14, 2020 12:00:51 PM EDT Transcribed by: PREETI VILLALTA on Sat Jul 14, 2020 12:07:08 PM EDT Finalized by: SHAY FERNANDEZ on Sat Jul 14, 2020 12:57:25 PM EDT Normal [facility] Comment on above: Order Comment: Injur y/Trauma [...] limits. No free peritoneal fluid is seen. [facility] 1. Normal study. 2. With a positive beta hCG, this is a of unknown location. Clinical correlation including serial beta hCG levels is needed differentiate the possibilities which include extremely early , spontaneous of recent , or ectopic gestation which is not directly visualized. With a history of bleeding, spontaneous of is believed most likely. [facility] Workstation ID: [id number] [facility] Interface, Rad In [facility] - 07/14/2020 1:00 PM EDT EXAMINATION: [...] bleeding, spontaneous of is believed most likely. [facility] Workstation ID: [id number] [facility] VAGINITIS DNA PROBESon 07-14 Olga sp DNA Probe+sig amp Ql (Vag fld) Negative Negative [facility] G. vaginalis DNA Probe+sig amp Ql (Vag fld) Negative Negative [facility] Interpretation and review of laboratory results Normal [facility] T. vaginalis DNA Probe+sig amp Ql (Vag fld) Negative Negative [facility] hCG, Blood, QUANTitativeon 0 07-14-2020 Beta HCG ( test) Ql (U) Males and non females: <5 mIU/mL Females during : 3-4 weeks 9-130 mIU/mL 4-5 weeks 75-2600 mIU/mL 5-6 weeks 850-20,800 mIU/mL 6-7 weeks 4000-100,200 mIU/mL 7-12 weeks 11,500-289,000 mIU/mL 12-16 weeks 18,300-137,000 mIU/mL 16-29 weeks 1,400-53,000 mIU/mL 29-41 weeks 940-60,000 mIU/mL [facility] HCG Qn 438 m[IU]/mL High [facility] Basic Metabolic Panelon 04-0 Anion gap [Moles/Vol] 7.0 mmol/L Normal 6.0-18.0 [facility] Comment on above: Performed By: #### 2 4321-2, 35911-6, 00136-0f4, 1987- ####[facility] [address], [place] Calcium [Mass/Vol] 8.6 mg/dL Low 8.9-10.3 [facility] Comment on above: Performed By: #### 2 4321-2, 53214-2, 18074-3u6, 1988-03 ####[facility] [address] [place], [place] Chloride [Moles/Vol] 107 mmol/L Normal 98-107 [facility] Comment on above: Performed By: #### 2 1-2, 30659-2, 56559-4l2, 1988-03 ####[facility] [address] [place], [place] CO2 [Moles/Vol] 24 mmol/L Normal 22-32 [facility] Comment on above: Performed By: #### 2 1-2, 11780-5, 58555-6a7, 1988-03 ####[facility] [address], [place] Creatinine [Mass/Vol] 0.67 mg/dL Normal 0.60-1.30 [facility] Comment on above: Performed By: #### 2 4320-2, 53555-9, 75437-5q1, 1988-03 ####[facility] [address], [place] Glucose [Mass/Vol] 105 mg/dL High 70-99 [facility] Comment on above: Result Comment: U pdated ADA Reference Range A normal fasting glucose concentration is less than 100 mg/dL. An impaired fasting glucose concentration is 100-125 mg/dL. A provisional diagnosis of diabetes mellitus can be made when a fasting glucose concentration is greater than 125 mg/dL. Performed By: #### 2 1-2, 87476-5, 79980-6p2, 1988-03 ####[facility] [address], [place] Potassium [Moles/Vol] 4.1 mmol/L Normal 3.6-5.1 [facility] Comment on above: Performed By: #### 2 4321-2, 20134-1, 15683-9z2, 1988-03 ####[facility] [address], [place] Sodium [Moles/Vol] 138 mmol/L Normal 136-145 [facility] Comment on above: Performed By: #### 2 4321-2, 22097-6, 33066-9r7, 1988-03 ####[facility] [address], [place] Urea nitrogen (BldV) [Mass/Vol] 8 mg/dL Normal 8-20 [facility] Comment on above: Performed By: #### 2 4321-2, 83683-9, 49292-0t1, 1988-03 ####[facility] [address], [place] C-Reactive Proteinon 019 CRP [Mass/Vol] 3.2 mg/dL High <1.0 [facility] Comment on above: Performed By: #### 2 4321-2, 90260-6, 87348-4p5, 1988-03 ####[facility] [address] [place], [place] CBCon 03-01-2019 Erythrocyte distribution width (RBC) [Entitic vol] 14.3 % Normal 11.0-14.8 [facility] Comment on above: Performed By: #### 2 4317-0 ####[facility] [address] [place], [place] Hematocrit (Bld) [Volume fraction] 37.5 % Normal 35.0-45.0 [facility] Comment on above: Performed By: #### 2 4317-0 ####[facility] [address], [place] Hemoglobin (Bld) [Mass/Vol] 12.5 g/dL Normal 12.0-16.0 [facility] Comment on above: Performed By: #### 2 4317-0 ####[facility] [address], [place] MCH (RBC) [Entitic mass] 28.1 Picograms Normal 27.0-34.0 [facility] Comment on above: Performed By: #### 2 4317-0 ####[facility] [address], [place] MCHC (RBC) [Mass/Vol] 33.3 g/dL Normal 32.0-36.0 [facility] Comment on above: Performed By: #### 2 4317-0 ####[facility] [address], [place] MCV (RBC) [Entitic vol] 84.6 fL Normal 80.0-97.0 [facility] Comment on above: Performed By: #### 2 4317-0 ####[facility] [address] [place], [place] Platelet mean volume (Bld) [Entitic vol] 10.5 fL Normal 6.2-12.1 [facility] Comment on above: Performed By: #### 2 4317-0 ####[facility] [address] [place], [place] Platelets (Bld) [#/Vol] 231 thou/mcL Normal 142-424 [facility] Comment on above: Performed By: #### 2 4317-0 ####[facility] [address] [place], [place] RBC (Bld) [#/Vol] 4.43 million/mcL Normal 3.80-5.10 [facility] Comment on above: Performed By: #### 2 4317-0 ####[place] [address] [place], [place] WBC (Bld) [#/Vol] 12.7 thou/mcL High 4.6-10.2 [facility] Comment on above: Performed By: #### 2 4317-0 ####[facility] [address] [place], [place] GFRaaon 03-01-2019 GFR/1.73 sq M predicted among blacks MDRD (S/P/Bld) [Vol rate/Area] mL/min/{1.73_m2} Normal [facility] Comment on above: Result Comment: The MDRD equation has not been validated for those over 70 years, women, patients with serious co-morbid conditions, or with extremes of body size, muscle mass of nutritional status. Performed By: #### 2 4321-2, 39794-2, 15753-8r5, 1988- ####[facility] [address] [place], [place] GFRbbon 03-01-2019 GFR/1.73 sq M predicted among non-blacks MDRD (S/P/Bld) [Vol rate/Area] mL/min/{1.73_m2} Normal [facility] Comment on above: Performed By: #### 2 4321-2, 60051-4, 05016-0p6, 1988-03 ####[facility] [address] [place], [place] Glucose POCT (Uploaded)on Glucose [Mass/Vol] 87 mg/dL Normal 70-99 [facility] Comment on above: Result Comment: Nadia tment ranges and critical values established by Patient Care Services. All follow-up actions were taken by Patient Care Services. Performed By: #### 2 430-8 ####[facility] Glucose [Mass/Vol] 93 mg/dL Normal 70-99 [facility] Comment on above: Result Comment: Nadia tment ranges and critical values established by Patient Care Services. All follow-up actions were taken by Patient Care Services. Performed By: #### 2 430-8 ####[facility] Glucose [Mass/Vol] 95 mg/dL Normal 70-99 [facility] Comment on above: Result Comment: Nadia tment ranges and critical values established by Patient Care Services. All follow-up actions were taken by Patient Care Services. Performed By: #### 2 430-8 ####[facility] Glucose [Mass/Vol] 123 mg/dL High 70-99 [facility] Comment on above: Result Comment: Nadia tment ranges and critical values established by Patient Care Services. All follow-up actions were taken by Patient Care Services. Performed By: #### 2 430-8 ####[facility] PACU I Nursingon 03-01-2019 PACU I Nursing [facility] PACU I Nursin g Record Summary Primary Physician: Marcellus Driscoll MD Finalized Date/Time: 03/01/19 07:03:14 Pt. Name: SABRINA VELASQUEZ D.O.B./Sex: 1990 Female Med Rec #: [id number] Physician: Marcellus Driscoll MD Financial #: [id number] Pt. Type: I Room/Bed: 7T47/01 Admit/Disch: 02/28/19 08:18:00 - Institution: [facility] [...] 15:45 Sherrie Rendon RN 03/01/19 07:03 Normal [facility] Patient Summaryon 03-01-2019 Patient Summary PATIENT DISCHARGE INSTRUCTIONS If you are having an emergency and are not able to reach your physician, CALL 911 or go to the nearest emergency room and take this document with you. [facility] 03/01/19 18:[address] [place] [address]. [id number] PATIENT INFORMATION Name: SABRINA VELASQUEZ Address: [address] [place] [id number] Age: 29 Years Phone: [phone] : 1990 12:00 MRN: [facility][id number] Sex: Female Race: White Ethnicity: Declined Admitted From: Clinic or [facility] Medical Service: Surgery Nurse Unit/Bed: ([place]) 7TWH 8N91-23 Admit Date: 02/28/2019 08:18 PCP: Omid Killian MD PHYSICIANS INVOLVED WITH CARE ------ Attending Physicians: Marcellus Driscoll MD - Surgery Admitting Physician: Marcellus Driscoll MD - Surgery Primary Care Physician:Omid Killian MD, - Consults: None found FOLLOW-UP APPOINTMENTS: Provider: Specialty: Address: Date: Marcellus Driscoll MD Surgery [address] [facility] [address] [place] [phone] (1) 03/08/19 01:45 pm Comment: Please follow-up at your pre-scheduled appointment. Provider: Specialty: Address: Date: Omid Killian MD [address] [place] [phone] (1) Follow-up as needed Provider: Specialty: Address: Date: Post-Op Nutrition Class [address] [facility] [address] 03/22/19 Comment: Please call [phone] for more information or to re-schedule. ALLERGIES: [...] doses are changed, or new medications (including xxfe-uzh-taszflu products) are added. Ask your doctor if [...] diet. Follow recommendations from your surgeon and roller turner regarding you diet. Refer to nutrition information [...] doctor before taking any supplements, herbal or ksdk-uhj-zumruhz medications. Call your physician if any questions [...] suicide hotline, anytime day or night, at 1-533-656-UZIS. Important information about accessing your health information through the [facility] patient portal If you initiated the self-registration process for [facility] during your stay, please check your personal email for an invitation to enroll in [facility] and complete the steps outlined in the email. If you would prefer to enroll while in the hospital, ask a member of your care team. We would be happy to assist you. If you have already enrolled in [facility], go to [email or web address] to login and access your health information. Thank you for choosing [facility]. PATIENT EDUCATION Gastric Bypass Surgery, Care After [...] of caffeine can cause dehydration. ?? A roller turner may also give you specific instructions. ?? [...] 06/30/2005 Document Revised: 12/07/2015 Document Reviewed: 04/08/2011 [employer] Interactive Patient Education ??2016 The Daily [employer]. Gastric Bypass Discharge Instructions 1. Follow-up Care [...] dietitian for post-operative class at 2 weeks [phone] ? Call Bariatric Nurse Navigator [phone] with any further questions or concerns Call 411 if you have difficulty breathing or chest [...] provided above is for informational purposes only. [facility] does not promote, condone or endorse all the values expressed herein. The values or opinions they express with regard to the use of artificial contraception are not consistent with the teachings of the [employer] and the Ethical and Voodoo Directives for [employer] [facility] Care Services. If any of these instructions are different from what your doctor tells you, follow your doctor's orders. If you smoke, you should quit. For more information, talk with your doctor or call [phone]-NOW ( ). PATIENT DISCHARGE INSTRUCTION Signature Page for: SABRINA VELASQUEZ Date/Time: 03/01/2019 18:42:02 A Clinician has explained the information on my discharge instructions and has provided me with a copy. My questions have been answered to my satisfaction. Patient Signature Date/Time Responsible Party Date/Time Relationship to Patient Clinician Signature Date/Time Normal [facility] Glucose POCT (Uploaded)on Glucose [Mass/Vol] 140 mg/dL High [address] [place] [address] Comment on above: Result Comment: Nadia tment ranges and critical values established by Patient Care Services. All follow-up actions were taken by Patient Care Services. Performed By: #### 2 430-8 ####[facility] Glucose [Mass/Vol] 127 mg/dL [address] Comment on above: Result Comment: Nadia tment ranges and critical values established by Patient Care Services. All follow-up actions were taken by Patient Care Services. Performed By: #### 2 430-8 ####[facility] Glucose [Mass/Vol] 141 mg/dL [address] Comment on above: Result Comment: Nadia tment ranges and critical values established by Patient Care Services. All follow-up actions were taken by Patient Care Services. Performed By: #### 2 430-8 ####[facility] Glucose [Mass/Vol] 164 mg/dL [address] Comment on above: Result Comment: Nadia [...] SABRINA VELASQUEZ/Sex: 1990 Female Med Rec #: [id number] Physician: Marcellus Driscoll MD Financial #: [id number] Pt. Type: I Room/Bed: / Admit/Disch: 02/28/19 [...] [place] Role Performed Primary Surgeon Anesthesiologist Nurse Rough Rib Grader Time In 02/28/19 11:17:00 02/28/19 11:17:00 02/28/19 [...] Guaman RN , Litzy Garcia Role Performed coordinate measuring equipment operator RN First Scrub Time In 02/28/19 11:17:00 02/28/19 11:17:00 02/28/19 11:17:00 Time Out 02/28/19 14:05:00 02/28/19 14:05:00 02/28/19 14:05:00 Procedure Bypass Gastric Bypass Gastric Bypass Gastric Robot(N/A) Robot(N/A) Robot(N/A) Attendee Comment LUNCH [id number] LUNCH [id number] lunch [id number] Relief Reason Last Modified By: Abner RN , Disha Levine RN , Disha Levine RN , Disha Aiken 02/28/19 14:09:25 02/28/19 14:09:25 02/28/19 14:09:25 Entry 7 Entry 8 Entry 9 Case Attendee Adi MARTIN , Gissell S Hefel, Swetha C Case, Attendee Other Role Performed coordinate measuring equipment operator First Scrub Cotton Classer Time In 02/28/19 11:48:00 02/28/19 11:57:00 02/28/19 11:17:00 Time Out 02/28/19 12:40:00 02/28/19 12:53:00 02/28/19 14:05:00 Procedure Bypass Gastric Bypass Gastric Bypass Gastric Robot(N/A) Robot(N/A) Robot(N/A) Attendee Comment [place] MIRANDA - INTUITIVE Relief Reason Last Modified By: Abner MARTIN , Disha Levine RN , Disha Levine RN , Disha Aiken 02/28/19 14:09:25 02/28/19 14:09:25 02/28/19 14:09:25 [facility] OR General Case Hand Shaker 1 OR CO W 11 ASA Class [...] Arrival? No 16FR TEMP SEN W/URINE METER [id number] Inserted By Rowena MARTIN , Oly Moreno at End of Case? No Last Modified [...] OR Temperature Regulation Entry 1 Unit ID [id number] Site UPPER BODY Last Modified By: Gissell [...] By: Disha Levine RN 02/28/19 14:10 Normal [facility] PreOp Nursingon 02-28-2019 PreOp Nursing [facility] PreOp Nursing Record Summary Primary Physician: Marcellus Driscoll MD Finalized Date/Time: 02/28/19 12:08:12 Pt. Name: SABRINA VELASQUEZ Ayden /Sex: 1990 Female Med Rec #: [id number] Physician: Marcellus Driscoll MD Financial #: [id number] Pt. Type: I Room/Bed: / Admit/Disch: 02/28/19 [...] By: Gissell Joshi RN 02/28/19 12:08 Normal [facility] CBC with Differentialon 01-29 Basophils (Bld) [#/Vol] 0.00 thou/mcL Normal 0.00-0.20 [facility] Comment on above: Performed By: #### 5 7021-8 #### [address] Basophils/100 WBC (Bld) 0.4 % Normal 0.0-2.0 [facility] Comment on above: Performed By: #### 5 7021-8 #### [address] Eosinophils (Bld) [#/Vol] 0.10 thou/mcL Normal 0.00-0.70 [facility] Comment on above: Performed By: #### 7021-8 #### [facility] Eosinophils/100 WBC (Bld) 1.5 % Normal 0.0-7.0 [facility] Comment on above: Performed By: #### 70-8 #### [facility] [address] [place], [place] Erythrocyte distribution width (RBC) [Entitic vol] 14.8 % Normal 11.0-14.8 [facility] Comment on above: Performed By: #### 70-8 #### [address] Hematocrit (Bld) [Volume fraction] 41.4 % Normal 35.0-45.0 [facility] Comment on above: Performed By: #### 70-8 #### [address] Hemoglobin (Bld) [Mass/Vol] 13.7 g/dL Normal 12.0-16.0 [facility] Comment on above: Performed By: #### 7021-8 #### [address] Lymphocytes (Bld) [#/Vol] 1.80 thou/mcL Normal 1.00-4.80 [facility] Comment on above: Performed By: #### 7021-8 #### [address] Lymphocytes/100 WBC (Bld) 21.5 % Low 22.0-44.0 [facility] Comment on above: Performed By: #### 7021-8 #### [address] MCH (RBC) [Entitic mass] 28.6 Picograms Normal 27.0-34.0 [facility] Comment on above: Performed By: #### 7021-8 #### [address] MCHC (RBC) [Mass/Vol] 33.2 g/dL Normal 32.0-36.0 [facility] Comment on above: Performed By: #### 7021-8 #### [place] [id number] [place], [place] MCV (RBC) [Entitic vol] 86.0 fL Normal 80.0-97.0 [facility] Comment on above: Performed By: #### 70-8 #### [address] Monocytes (Bld) [#/Vol] 0.60 thou/mcL Normal 0.00-0.90 [facility] Comment on above: Performed By: #### 7020-8 #### [facility] Monocytes/100 WBC (Bld) 7.5 % Normal 0.0-12.0 [facility] Comment on above: Performed By: #### 7020-8 #### [facility] Neutrophils (Bld) [#/Vol] 5.90 thou/mcL Normal 1.80-7.70 [facility] Comment on above: Performed By: #### 7020-8 #### [facility] Neutrophils/100 WBC (Bld) 69.1 % Normal 40.0-70.0 [facility] Comment on above: Performed By: #### 70-8 #### [facility] Platelet mean volume (Bld) [Entitic vol] 11.3 fL Normal 6.2-12.1 [facility] Comment on above: Performed By: #### 70-8 #### [address] Platelets (Bld) [#/Vol] 194 thou/mcL Normal 142-424 [facility] Comment on above: Performed By: #### 70-8 #### [facility] RBC (Bld) [#/Vol] 4.81 million/mcL Normal 3.80-5.10 [facility] Comment on above: Performed By: #### 5 7021-8 #### [facility] [address], [place] WBC (Bld) [#/Vol] 8.5 thou/mcL Normal 4.6-10.2 [facility] Comment on above: Performed By: #### 5 7021-8 #### [facility] [address], [place] Comprehensive Metabolic Pane satnam 2019 Albumin [Mass/Vol] 3.3 g/dL Low 3.5-4.8 [facility] Comment on above: Performed By: #### 2 4323-8, 54581-7d6, 14528-5 ####[facility] [address], [place] ALP [Catalytic activity/Vol] 72 Units/L Normal 32-91 [facility] Comment on above: Performed By: #### 2 4323-8, 14482-4i9, 54875-8 ####[facility] [address], [place] ALT [Catalytic activity/Vol] 18 Units/L Normal 14-63 [facility] Comment on above: Performed By: #### 2 4323-8, 92034-3x3, 19820-2 ####[facility] [address], [place] Anion gap [Moles/Vol] 10.0 mmol/L Normal 6.0-18.0 [facility] Comment on above: Performed By: #### 2 4323-8, 51508-5g1, 83037-5 ####[facility] [address], [place] AST [Catalytic activity/Vol] 17 Units/L Normal 15-41 [facility] Comment on above: Performed By: #### 2 4323-8, 53676-8j4, 42612-3 ####[facility] [address], [place] Bilirubin [Mass/Vol] 0.7 mg/dL Normal 0.3-1.2 [facility] Comment on above: Performed By: #### 2 4323-8, 55719-8f9, 26988-0 ####[facility] [address], [place] Calcium [Mass/Vol] 8.5 mg/dL Low 8.9-10.3 [facility] Comment on above: Performed By: #### 2 4323-8, 58194-3i7, 27083-6 ####[facility] [address], [place] Chloride [Moles/Vol] 104 mmol/L Normal 98-107 [facility] Comment on above: Performed By: #### 2 4323-8, 96232-3c4, 07748-1 ####[place] [address], [place] CO2 [Moles/Vol] 22 mmol/L Normal 22-32 [facility] Comment on above: Performed By: #### 2 4323-8, 35648-9p5, 67479-9 ####[facility] [address], [place] Creatinine [Mass/Vol] 0.79 mg/dL Normal 0.60-1.30 [facility] Comment on above: Performed By: #### 2 4323-8, 89119-2i0, 15390-2 ####[facility] [address], [place] Glucose [Mass/Vol] 93 mg/dL Normal 70-99 [facility] Comment on above: Result Comment: U pdated ADA Reference Range A normal fasting glucose concentration is less than 100 mg/dL. An impaired fasting glucose concentration is 100-125 mg/dL. A provisional diagnosis of diabetes mellitus can be made when a fasting glucose concentration is greater than 125 mg/dL. Performed By: #### 2 4323-8, 58036-4n3, 61326-1 ####[facility] [address], [place] Potassium [Moles/Vol] 4.1 mmol/L Normal 3.6-5.1 [facility] Comment on above: Performed By: #### 2 4323-8, 79177-9j1, 94179-3 ####[facility] [address], [place] Protein [Mass/Vol] 6.0 g/dL Low 6.1-7.9 [facility] Comment on above: Performed By: #### 2 4323-8, 21014-5y4, 56306-0 ####[facility] [address], [place] Sodium [Moles/Vol] 136 mmol/L Normal 136-145 [facility] Comment on above: Performed By: #### 2 4323-8, 05779-4l4, 55878-9 ####[facility] [address], [place] Urea nitrogen (BldV) [Mass/Vol] 13 mg/dL Normal 8-20 [facility] Comment on above: Performed By: #### 2 4323-8, 35587-2e5, 90337-2 ####[facility] [address], [place] GFRaaon 2019 GFR/1.73 sq M predicted among blacks MDRD (S/P/Bld) [Vol rate/Area] mL/min/{1.73_m2} Normal [facility] Comment on above: Result Comment: The MDRD equation has not been validated for those over 70 years, women, patients with serious co-morbid conditions, or with extremes of body size, muscle mass of nutritional status. Performed By: #### 2 4323-8, 31940-1q4, 34239-7 ####[facility] [address], [place] GFRbbon 2019 GFR/1.73 sq M predicted among non-blacks MDRD (S/P/Bld) [Vol rate/Area] mL/min/{1.73_m2} Normal [facility] Comment on above: Performed By: #### 2 4323-8, 77524-6f0, 29049-3 ####[facility] [address], [place] Glycohemoglobin (HGB A1C) Emanuel guardado 2019 HbA1c (Bld) [Mass fraction] 5.0 % tl hgb Normal <5.6 [facility] Comment on above: Result Comment: U pdated ADA Reference Range HbA1c values of 5.7-6.4 percent indicate an increased risk for developing diabetes mellitus. HbA1c values greater than or equal to 6.5 percent are diagnostic of diabetes mellitus. For diagnosis of diabetes in individuals without unequivocal hyperglycemia, results should be confirmed by repeat testing. Performed By: #### 4 549-2 ####[facility], [address] [place] [address]. Partial Thromboplastin Time (aPTT)on 2019 aPTT Coag (PPP) [Time] 29.6 Sec Normal 23.6-35.3 [facility] Comment on above: Performed By: #### 3 173-2, 5902-2 ####[facility], [address] [place] [address]. Prothrombin Timeon 9 INR Coag (Bld) [Relative time] 1.00 {INR} Normal [facility] Comment on above: Result Comment: The recommended therapeutic INR range for most cardiac indications is 2.0-3.0. For high intensity therapy(ie.mechanical heart valves), the recommended range is 2.5-3.5. Performed By: #### 3 173-2, 5902-2 ####[facility], [address] [place] [address]. PT Coag (PPP) [Time] 11.5 Sec Normal 9.3-12.4 [facility] Comment on above: Performed By: #### 3 173-2, 5902-2 ####[facility], [address] [place] [address]. XR Chest 2 Viewson 9 XR Chest 2 views Two-view chest exam Indication: pre-op. Cough for the past week. COMPARISON: E 66.01 FINDINGS: The lungs are clear and the costophrenic angles are sharp. The cardiomediastinal silhouette and bones are normal. IMPRESSION: Normal chest. [facility] thanks you for the opportunity to care for your patient. Workstation ID: [id number] FINAL REPORT Dictated By: Jean Hull MD 2019 08:47 Assigned Physician: Jean Hull MD Reviewed and Electronically Signed By: Jean Hull MD 2019 08:48 Transcribed by: GREGORY 2019 08:47 Technologist: SHAKA Carranza [facility] OR Nursingon 09-17-2018 OR Nursing [facility] OR Nursing Record Summary Primary Physician: Tristan Dickey MD Finalized Date/Time: 09/17/18 07:39:53 Pt. Name: SABRINA VELASQUEZ /Sex: 1990 Female Med Rec #: [id number] Physician: Financial #: [id number] Pt. Type: I Room/Bed: / Admit/Disch: 09/16/18 13:46:00 - 09/16/18 15:20:00 Institution: [facility] Case Times Entry 1 Patient Times Patient In Room 09/16/18 14:20:00 Patient Out Room 09/16/18 14:30:00 Anesthesia Times Anes Start 09/16/18 14:18:00 Anes Stop 09/16/18 14:33:00 Surgical Times Start Time 09/16/18 14:26:00 Stop Time 09/16/18 14:28:00 Last Modified By: Julieta MARTIN , Sherrie Mota 09/17/18 07:37:51 General Comments: ANESTHESIA TIME START AND STOP ADDED PER ANESTHESIA PAPER RECORD KEILA MARTIN [facility] Case Attendees Entry 1 Entry 2 Entry 3 Case Attendee Tristan Dickey MD, CRNA , Charbel Wolf DO Role Performed Primary Surgeon Nurse Rough Rib Grader Anesthesiologist Time In 09/16/18 14:20:00 09/16/18 14:20:00 09/16/18 14:20:00 Time Out 09/16/18 14:30:00 09/16/18 14:30:00 09/16/18 14:30:00 Procedure Egd_(N/A) Egd_(N/A) Egd_(N/A) Attendee Comment Relief Reason Last Modified By: Breanna RN , Afia Carlos RN , Afia Carlos RN , Afia 09/16/18 14:31:12 09/16/18 14:31:12 09/16/18 14:31:12 Entry 4 Entry 5 Case Attendee Breanna RN , Afia Bernabe RN , Rosalio Butterfield Performed coordinate measuring equipment operator Pulp Roller Time In 09/16/18 14:20:00 09/16/18 14:20:00 Time Out 09/16/18 14:30:00 09/16/18 14:30:00 Procedure Egd_(N/A) Egd_(N/A) Attendee Comment Relief Reason Last Modified By: Breanna RN , Afia Carlos RN , Afia 09/16/18 14:31:12 09/16/18 14:31:12 [facility] General Case Hand Shaker 1 OR CO W EN 02 ASA [...] ADDED PER SCANNED ANES. PAPER RECORD KEILA MARTIN [facility] Surgical Procedures Entry 1 Procedure Egd_ Primary Procedure Yes Modifiers N/A Procedure Wound None Class Primary Surgeon Tristan Dickey MD Surgical Service General Surgery Anesthesia Type MAC Procedure Performed (EGD) ESOPHAGOGASTRODUODENO SCO PY Start 09/16/18 14:26:00 Stop 09/16/18 14:28:00 Last Modified By: Sherrie Rendon RN 09/17/18 07:39:25 General Comments: ANESTHESIA TYPE CHANGED PER PAPER ANESTHESIA RECORD KEILA MARTIN [facility] Fire Risk Assessment Entry 1 Alcohol [...] (less than 30% when able) [facility] Interventional Checklist Entry 1 TIme Out [...] By: Afia Carlos RN 09/16/18 14:22:19 [facility] Cheng Score Entry 1 Activity 2-Able to move four Circulation 2-BP + or - 20% extremities voluntarily systolic of on command preanesthetic level Consciousness 2-Fully Awake Respiratory 2-Able to breathe deeply and cough freely Saturation 2- Able to maintain O2 saturation >92% on room air Last Modified By: Afia Carlos RN 09/16/18 14:05:22 [facility] Pain Assessment Entry 1 Pain Intensity [...] 07:39 Sherrie Rendon RN 09/17/18 07:39 Normal [facility] Post PACU Nursingon 09-17-20 Post PACU Nursing [facility] PACU II Nursing Record Summary Primary Physician: Tristan Dickey MD Finalized Date/Time: 09/17/18 07:40:27 Pt. Name: SABRINA VELASQUEZ/Sex: 1990 Female Med Rec #: [id number] Physician: Financial #: [id number] Pt. Type: I Room/Bed: / Admit/Disch: 09/16/18 13:46:00 - 09/16/18 15:20:00 Institution: [facility] PACU II Case Times Entry 1 In [...] 07:35 Sherrie Rendon RN 09/17/18 07:40 Normal [facility] PreOp Nursingon 09-17-2018 PreOp Nursing [facility] PreOp Nursing Record Summary Primary Physician: Tristan Dickey MD Finalized Date/Time: 09/17/18 07:36:42 Pt. Name: FRANCISCO VELASQUEZPAULINE Garcia/Sex: 1990 Female Med Rec #: [id number] Physician: Financial #: [id number] Pt. Type: I Room/Bed: / Admit/Disch: 09/16/18 13:46:00 - 09/16/18 15:20:00 Institution: [facility] PreOp Case Times Entry 1 PreOp Case Times In Room Time 09/16/18 14:00:00 Out Room Time 09/17/18 14:19:00 Last Modified By: Sherrie Rendon RN 09/17/18 07:36:31 General Comments: OUT ROOM TIME ENTERED PER PATIENT IN ROOM TIME (OR NSG RECORD) KEILA RN [facility] PreOp Case Attendees Entry 1 Case Attendee Andrew RN , Altagracia Cohn RN Last Modified By: Altagracia Morales RN 09/16/18 14:00:58 Finalized By: Sherrie Rendon RN Document Signatures Signed By: Sherrie Rendon RN 09/17/18 07:36 Sherrie Rendon RN 09/17/18 07:36 Normal [facility] Patient Summaryon 09-16-2018 Patient Summary PATIENT DISCHARGE INSTRUCTIONS If you are having an emergency and are not able to reach your physician, CALL 911 or go to the nearest emergency room and take this document with you. [facility] 09/16/18 14:45 [address] [place]. [address] PATIENT INFORMATION Name: SABRINA VELASQUEZ Address: [address] [place] [id number] Age: 28 Years Phone: [phone] : 1990 12:00 Sex: Female Race: White Ethnicity: Declined Admitted From: Clinic or [facility] Medical Service: Surgery Nurse Unit/Bed: (STEVEN LOWRY N/A Admit Date: 09/16/2018 13:46 PCP: Omid [...] doses are changed, or new medications (including xdrw-ehk-kutnkud products) are added. Ask your doctor if [...] suicide hotline, anytime day or night, at 6-619-185-BRAH. Important information about accessing your health information through the [facility] patient portal If you initiated the self-registration process for [facility] during your stay, please check your personal email for an invitation to enroll in [facility] and complete the steps outlined in the email. If you would prefer to enroll while in the hospital, ask a member of your care team. We would be happy to assist you. If you have already enrolled in [facility], go to [email or web address] to login and access your health information. Thank you for choosing [facility]. PATIENT EDUCATION Esophagogastroduodeno scopy, Care After Refer [...] Reviewed: 11/02/2013 Elsevier Interactive Patient Education ?2016 [employer] VIRUSES OR BACTERIA: WHAT'S GOT YOU [...] Relationship to Patient Clinician Signature Date/Time Normal [facility] ECG 12 leadon 06-14-2018 Atrial Rate Invalid Interpretation Code [facility] P [place] Invalid Interpretation Code [facility] P-R Interval Invalid Interpretation Code [facility] Q-T Interval Invalid Interpretation Code [facility] Q-T Interval (corrected) Invalid Interpretation Code [facility] QRS Duration Invalid Interpretation Code [facility] QTC Calculation (Bezet) Invalid Interpretation Code [facility] R [place] Invalid Interpretation Code [facility] T [place] Invalid Interpretation Code [facility] Ventricular Rate Invalid Interpretation Code [facility] Vital Signs Date Time Vital Sign Value Performing Clinician Abbey ruiz 07-14-2020 13:00-0400 BP Diastolic 78 mm[facility]Hg[facility] 07-14-2020 13:00-0400 BP Systolic 123 mm[Hg] [facility] 07-14-2020 13:00-0400 Pulse (Heart Rate) 55 /min [facility] 07-14-2020 13:00-0400 Pulse Oximetry 100 % Alicia Hudson [facility] 07-14-2020 10:06-0400 Body Temperature 98.8 [degF] [facility] 07-14-2020 10:04-0400 BMI (Body Mass Index) 43.58 kg/m2 Alicia Hudson [facility] 07-14-2020 10:04-0400 Body weight 122.47 kg Alicia Hudson [facility] 07-14-2020 10:04-0400 Height 167.6 cm [facility] 07-14-2020 10:04-0400 Respiratory Rate 16 /min Alicia Hudson [facility] 06-14-2018 09:16-0400 BMI (Body Mass Index) 63.24 kg/m2 [facility] 06-14-2018 09:16-0400 BP Diastolic 84 mm[Hg] [facility] 06-14-2018 09:16-0400 BP Systolic 128 mm[Hg] [facility] 06-14-2018 09:16-0400 Height 167.6 cm [facility] 06-14-2018 09:16-0400 Pulse (Heart Rate) 64 /min [facility] 06-14-2018 09:16-0400 Pulse Oximetry 98 % [facility] 06-14-2018 09:16-0400 Weight 177.72 kg [facility] Encounters Encounter Date Encounter Type Care Provider Facility Start: 05-19-2024 End: 05-19-2024 ambulatory LIA MAKAYLA Not Available Start: 05-04-2024 End: 05-04-2024 ambulatory MARITZA MIRIAN [...] 07-14-2020 Emergency department patient visit OMID MARTINEZ [facility] Start: 07-14-2020 End: 07-14-2020 Emergency department patient visit Alicia Hudson Work Phone: [facility] Department Comment on above: Threatened (Primary Dx) Start: 12-13-2018 End: 12-13-2018 Patient encounter procedure Lauren Hagan [facility] Start: 06-14-2018 End: 06-14-2018 Patient encounter PROVIDER NOT IN SYSTEM [facility] Start: 06-14-2018 End: 06-14-2018 Office outpatient new 30 minutes Provider Not In System [facility] Start: 05-17-2018 End: 05-17-2018 Patient encounter VANESSA EDOUARD [facility] Start: 05-17-2018 End: 05-17-2018 Office outpatient new 30 minutes Vanessa Edouard Work Phone: [facility] Procedures Date Procedure Procedure Detail [...] Phone: Start: 07-14-2020 LIGHT BLUE TOP Chris Sammie Wrigh t Work Phone: Start: 07-14-2020 LIGHT GREEN TOP Chris Smileye Wrigh t Work Phone: Start: 07-14-2020 End: 07-14-2020 RAINBOW DRAW Chris smallwood Work Phone: Start: 07-14-2020 Urinalysis Chris Marinelliigh selin Work Phone: Start: 07-14-2020 Gardnerella vaginalis rRNA assay Chris Pate Work Phone: Plan of Treatment Date Care Activity Detail Author Start: 07-31-2020 Influenza vaccinatio n given Sequential Influenza Vaccine (#1) [facility] Start: 07-31-2018 Influenza vaccination [facility] Start: 07-31-2018 Influenza vaccinatio n given SEQUENTIAL INFLUENZA VACCINE (#1) [facility] Start: 07-19-2018 End: 07-19-2018 Ambulatory 07/19/2018 Office Visit Dermatology Vanessa Edouard Jr., DO [address] [place] [address] [phone] [facility] Start: 06-14-2018 End: 06-14-2018 Ambulatory 06/14/2018 Office Visit Cardiology System, Provider Not In TracyJosefina moreira MD [address] [facility] [place] [address] [phone] [facility] Start: 02-21-2010 Hepatitis C antibody , confirmatory test Hepatitis C Screening [facility] Start: 02-21-2007 HIV screening HIV Screening [facility] Start: 02-21-1995 History and physical examination, annual for health maintenance Wellness Visit [facility] Start: 1992 Screening for malign ant neoplasm of cervix PAP SMEAR [facility] Start: 1992 Tetanus vaccination [facility] End: 07-14-2020 Neisseria gonorrhoeae nucleic acid detection Chlamydia/Gonorrhoeae Amplified RNA Microbiology Routine Once for 1 Occurrences starting 07/14/2020 until 07/14/2020 [facility] Comment on above: Once for 1 Occurrenc es starting 07/14/2020 until 07/14/2020 Neisseria gonorrhoea e nucleic acid detection Chlamydia/Gonorrhoeae Amplified RNA Microbiology Routine 07/14/2020 11:20 AM EDT [facility] Payers Date Payer Category Payer Medicaid [id number] 2020 Medicaid [employer] xxxxxxxxxxx 2020-Present xxxxxxxxxxx [id number] 2020 Medicaid [id number] 2019 Private Health Insurance [id number] 2017 Unknown [id number] 2017 Unknown [facility] HMO/BECKY/ BECKY PLUS/CHOICE PLUS xxxxxxxxx 2017-Present xxxxxxxxx [id number] 1992 Unknown [id number] [id number]. 903 1992 Unknown [id number] 2.16.840.1.917589.3.579.2. 9 1992 Unknown [id number] 2.16.840.1.468162.3.579.2. 9 1992 Unknown [id number] 2.16.840.1.445558.3.579.2. 9 1992 Unknown [id number] 2.16.840.1.476627.3.579.2. 1258 1992 Unknown [id number] 2.16.840.1.767675.3.579.2. 1258 1992 Unknown [id number] 2.16.840.1.242570.3.579.2. 1258 1992 Unknown [id number] 2.16.840.1.298921.3.579.2. 9 1990 Unknown [id number] 2.16.840.1.907333.3.579.2. 1258 1990 Unknown [id number] [id number]. 1259 Social History Date Type Detail Facility Start: 05-17-2018 End: 06-14-2018 Tobacco smoking status [facility] Never smoker [facility] Sex Assigned At Not on file [facility] Start: 07-14-2020 Tobacco smoking status [facility] Current some day smoker [facility] Start: 07-14-2020 Alcohol intake Current non-dr canvas shrinker of alcohol (finding) [facility] Exposure to SARS-CoV -2 (event) Not sure [facility] Assessments Note Patient: SABRINA VELASQUEZ Age: 29 [...] for home later today Logan Driscoll MD [phone] SURGERY PROGRESS NOTE SUBJECTIVE: Patient denies abd [...] FoundDocuments on File Type Date Recorded Patient Trimmer Operator Expl 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 [facility] 09/16/18 14:45 [address] [place]. [address] PATIENT INFORMATION Name: SABRINA VELASQUEZ Address: [address] [place] [address] Age: 28 Years Phone: [phone] : 1990 12:[birth year] MRN: [id number] Sex: Female Race: White Ethnicity: Declined Admitted From: Clinic or Phys Ofc Medical Service: Surgery Nurse Unit/Bed: (CO) W-END N/A Admit Date: 09/16/2018 13:46 PCP: Omid Killian MD PHYSICIANS INVOLVED WITH CARE Attending Physicians: Keli URBINA , Tristan - Surgery Admitting Physician: None found Primary Care Physician:Omid Killian MD, - Consults: None found Problems Active Obesity IBS (irritable bowel syndrome) GERD (gastroesophageal reflux disease) Murmur Allergies NKA Procedures Tonsillectomy (2009) MEASUREMENTS: Last (more content not included)... Note CLINICAL SUMMARY Please take this summary document to your follow up appointments. [facility] 03/01/19 18:42 [address] [place]. [address] PATIENT INFORMATION Name: SABRINA VELASQUEZ Address: [address] [place] [id number] Age: 29 Years Phone: [phone] : 1990 12:00 MRN: [facility][id number] Sex: Female Race: White Ethnicity: Declined Admitted From: Clinic or Phys Ofc Medical Service: Surgery Nurse Unit/Bed: (CO) 7TWH [id number] Admit Date: 02/28/2019 08:18 PCP: Omid Killian MD PHYSICIANS INVOLVED WITH CARE Attending Physicians: Marcellus Driscoll MD - Surgery Admitting Physician: Marcellus Driscoll MD - Surgery Primary Care Physician:Omid Killian MD, - Consults: None found Problems Active Morbid (severe) obesity due to excess calories Obesity IBS (irritable bowel syndrome) GERD (gastroesophageal reflux (more content not included)... Note Patient: SABRINA VELASQUEZ [facility] : [id number] Age: 29 years Sex: Female : 1990 [...] GERD, IBS, and heart murmur presented to [facility] on 02/28/2019 for an elective robotically assisted laparoscopic [place]-en-Y gastric bypass with by Purnima albarran an had an extensive preoperative workup. Patient tolerated the procedure well and was transferred to PACU in stable condition where she had an uneventful recovery. His then tra (more content not included)... Note Patient: SABRINA VELASQUEZ MRN : [id number])-[id number] Age: 29 years Sex: Female : 1990 [...] for home later today Logan Driscoll MD [phone] SURGERY PROGRESS NOTE SUBJECTIVE: Patient denies abd [...] (02/28 12:00 (more content not included)... Note [facility] Patient Name: Sabrina Velasquez Procedure Date: 09/16/2018 [...] not included)... Note Patient: SABRINA VELASQUEZ MRN: [facility])-[id number] Age: 28 years Sex: Female : 1990 Associated Diagnoses: None Author: Kasie Delvalle CRNA Supervising Physician Comments Documentation By: Certified Registered Nurse Rough Rib Grader. Subjective Subjective: Patient participated in the evaluation: [...] concluded. Note Patient: SABRINA VELASQUEZ MRN : [facility])-[id number] Age: 29 years Sex: Female : 1990 [...] (more content not included)... Procedure Findings Note [facility] Patient Name: Sabrina Velasquez Procedure Date: 09/16/2018 [...] not included)... Note Patient: SABRINA VELASQUEZ MRN: [facility])-[id number] Age: 28 years Sex: Female : 1990 Associated Diagnoses: None Author: Kasie Delvalle CRNA Supervising Physician Comments Documentation By: Certified Registered Nurse Rough Rib Grader. Subjective Subjective: Patient participated in the evaluation: [...] concluded. Note Patient: SABRINA VELASQUEZ MRN : [facility])-[id number] Age: 29 years Sex: Female : 1990 [...] sent through Care Everywhere. * Miscarriage: Threatened (Turkish) documented in this encounter Additional Source Comments [...] nondistended Alicia Hudson MD ED Attending Physician [facility] Emergency Department documented in this encounter INFORMATION SOURCE (unrecogn ized section and content) DATE CREATED AUTHOR 06/15/2018 [facility] DATE CREATED AUTHOR AUTHOR'S ORGANIZ ATION 08/09/2019 [facility] DATE CREATED AUTHOR AUTHOR'S ORGANIZ ATION 12/27/2020 [facility] DATE CREATED AUTHOR AUTHOR'S ORGANIZ ATION 05/20/2024 [facility] EPIC Reason for Visit (unrecogniz ed section and content) Reason Comments Vaginal Bleeding Chris Pate PA-C - 07/14/2020 10:43 AM Dorinda Avila RN - 07/14/2020 10:07 AM Dorinda Avila RN - 07/14/2020 10:04 AM EDT ED Notes (unrecognized secti on and content) ED PROVIDER NOTE [facility] EMERGENCY DEPARTMENT NAME: Sabrina Velasquez AGE: 30 y.o. : 1990 VISIT DATE: 07/14/2020 CSN: [id number] PCP: Omid Killian MD Clinical Impression: 1. Threatened ED Disposition ED Disposition Condition Comment Discharge Stable Sabrina Velasquez discharged to home/self care in stable condition. Follow-up Information 1. Roni Clemens MD. Specialty: Obstetrics/Gynecology Why: For recheck of today's symptoms [address] [facility] [address] 2. [facility] Emergency Department. Specialty: Emergency Medicine Why: As needed, If symptoms worsen [address] [place] [address] Contact information for after-discharge care Follow-up information [...] this point clinically. Patient has appointment with EM[employer]OYMENT [employer]OC[employer]ATE on Thursday. Considered implantation bleeding, threatened , [...] reports she is scheduled to see her EMPLOYMENT INSTRUCTIONAL ASSOCIATE Dr. Clemens next week. Patient denies any [...] file Gets together: Not on file Attends adventism service: Not on file Active member of [...] nursing note reviewed. Exam conducted with a diagnostic technologist present. Constitutional: Appearance: Normal appearance. HENT: Head: [...] Colorless, Yellow Clarity, Urine Clear Clear Specific Plaza 1.011 1.005 - 1.025 pH, Urine 7.0 [...] bleeding, spontaneous of is believed most likely. [facility] Workstation ID: [id number] Procedures The patient [...] pre-hypertension or hypertension. . Chris Pate PA-C [facility] Emergency Department Chris Pate PA-C 07/14/20 1340 [...] BE BASED ON THE PRIMARY CLINICAL RECORDS. [facility]. provides no warranty or guarantee of the accuracy or completeness of information in this document.
--- NOTE | 2024-05-27 14:10 | US_ITS ---
[place] [id number] Patient Name: SABRINA VELASQUEZ MRN: [id number] date: 1990 Sex: F Assigned Patient Location: US Current Patient Location: Accession/Order Number: [id number] Exam Date: 05/27/2024 14:15 Report Date: 05/27/2024 14:56 At the request of: LIA BENAVIDES Procedure: US OB BPP w non-stress EXAMINATION: US OB BPP w non-stress HISTORY: Third trimester Z34.93 COMPARISON: No relevant comparison available. TECHNIQUE: Ultrasound biophysical profile was performed in the radiology department. FINDINGS: BREATHING MOVEMENTS: 2 GROSS BODY MOVEMENTS: 2 TONE: 2 QUALITATIVE AMNIOTIC FLUID VOLUME: 2 PRESENTATION: CEPHALIC HEART RATE: 145.95 bpm AMNIOTIC FLUID VOLUME: 16.9 cm GESTATIONAL AGE: 35 weeks 0 days US/US OB BPP w non-stress IMPRESSION: Total biophysical profile score: 8 Electronically authenticated by: SHAY BEY Date: 05/27/2024 14:56
== END 2024-05-27 15:31 | disposition home or self-care (01) ==
LOC: US 07:08 → FBC 14:57
PROVIDERS: Visit Provider Obstetrics & Gynecology
DX: Z34.93 Encounter for supervision of normal pregnancy, unspecified, third trimester (principal); Z3A.35 35 weeks gestation of pregnancy
CPT/HCPCS: 59025; 76818

== ENCOUNTER 2024-06-01 21:13 | Outpatient (REF) | payer OTHER, SELFPAY ==
--- OUTSIDE RECORDS SUMMARY | 2024-06-01 21:18 | XMS_ITS | CCD ---
Author Organization [facility] Inform ion Partnership [facility] Care Team Providers Care Information Manager Name Role Phone Killian, Omid Sandadi Unavailable Unavailabl e MOROCCO, VANESSA Unavailable Unavailable KILLIAN, OMID SANDADI Unavailable Unavailabl e SYSTEM, PROVIDER NOT IN Unavailable Unavaila ble TRACY, NOWWAR GHAZI YASIN Unavailable Unav ailable YAMILA'LOGAN Unavailable Unavailabl e KILLIAN, OMID SANDADI Unavailable Unavailabl e Killian, Omid Sandadi Primary Care Provider [phone] KILLIAN, OMID SANDADI Primary Care Unavailabl e ALICIA HUDSON Attending Unavailable MAKAYLALIA Attending Unavailable MAKAYLA, LIA Attending Unavailable MIRIANMARITZA [...] Results Test Name Value Interpretation Reference Range [facility] VERIFICATIONon 020 ABO and Rh group Nom (Bld) A Negative [facility] ABO and Rh group Nom (Bld) ABO/Rh Verification [facility] BMPon 07-14-2020 Anion gap [Moles/Vol] 6 mmol/L Low 10 - 20 mmol/L [facility] Calcium [Mass/Vol] 9.0 mg/dL 8.4 - 10. 2 mg/dL [facility] Chloride [Moles/Vol] 113 mmol/L High 98 - 108 mmol/L [facility] Creatinine [Mass/Vol] 0.64 mg/dL 0.40 - 1.10 [facility] GFR/1.73 sq M predicted among non-blacks MDRD (S/P/Bld) [Vol rate/Area] The eGFR should be used for monitoring renal function only and not for medication dosing. [facility] GFR/1.73 sq M.predicted CKD-EPI (S/P/Bld) [Vol rate/Area] 122 >=60 mL/min/1.73 m2 [facility] Glucose [Mass/Vol] 71 mg/dL 65 - 99 mg/dL [facility] HCO3 [Moles/Vol] 28 mmol/L 21 - 32 mmol/L [facility] Potassium [Moles/Vol] 3.9 mmol/L 3.5 - 5.1 mmol/L [facility] Sodium [Moles/Vol] 143 mmol/L 135 - 145 mmol/L [facility] Urea nitrogen [Mass/Vol] 8 mg/dL 8 - 25 mg/dL [facility] Urea nitrogen/Creatinine [Mass ratio] 12.5 mg/mg [facility] CBC WITH AUTO DIFFERENTIALon 07-14-2020 Basophils (Bld) [#/Vol] 0.03 10*3/uL [facility] Basophils/100 WBC (Bld) 0.4 % [facility] Eosinophils (Bld) [#/Vol] 0.10 10*3/uL [facility] Eosinophils/100 WBC (Bld) 1.5 % [facility] Erythrocyte distribution width (RBC) [Entitic vol] 12.3 % 11.6 - 14.8 % [facility] Hematocrit (Bld) [Volume fraction] 39.2 % 36 - 46 % [facility] Hemoglobin (Bld) [Mass/Vol] 13.6 g/dL 12 - 16 g/dL [facility] Immature granulocytes (Bld) [#/Vol] 0.02 10*3/uL [facility] Immature granulocytes/100 WBC (Bld) 0.30 % [facility] Comment on above: The IG parameter is the percentage of metamyelocytes, myelocytes and promyelocytes. An immature granulocyte count (IG) of 1% or more suggests the possibility of infection, an IG count of 3% is very likely related to an infection. Lymphocytes (Bld) [#/Vol] 1.95 10*3/uL [facility] Lymphocytes/100 WBC (Bld) 29.2 % [facility] MCH (RBC) [Entitic mass] 30.4 pg 26 - 34 pg [facility] MCHC (RBC) [Mass/Vol] 34.7 g/dL 31 - 37 g/dL [facility] MCV (RBC) [Entitic vol] 87.7 fL 80 - 100 fL [facility] Monocytes (Bld) [#/Vol] 0.48 10*3/uL [facility] Monocytes/100 WBC (Bld) 7.2 % [facility] Neutrophils (Bld) [#/Vol] 4.09 10*3/uL [facility] Neutrophils/100 WBC (Bld) 61.4 % [facility] Nucleated RBC (Bld) [#/Vol] 0.00 10*3/uL [facility] Nucleated RBC/100 WBC (Bld) [Ratio] 0.0 % [facility] Platelet mean volume (Bld) [Entitic vol] 11.8 fL 9.4 - 12.4 fL [facility] Platelets (Bld) [#/Vol] 151 10*3/uL [facility] RBC (Bld) [#/Vol] 4.47 10*6/uL [facility] WBC (Bld) [#/Vol] 6.67 10*3/uL [facility] Otheron 07-14-2020 Extra Tube Hold for add-ons. [facility] Comment on above: Auto resulted. Interpretation and review of laboratory results Abnormal [facility] Type and Screenon 07-14-2020 ABO and Rh group Nom (Bld) A Negative [facility] Blood group antibody screen Ql Negative [facility] Specimen Expires 07/17/2020 23:59 EST [facility] URINALYSISon 07-14-2020 Bacteria Auto Ql (U) None Seen None Seen /hpf [facility] Bilirubin Ql (U) Negative Negative [facility] th Clarity Refractometry automated (U) Clear Clear [facility] Color (U) Yellow Colorless, Yellow [facility] Epithelial cells.squamous Auto (Urine sed) [#/Area] 5 High [facility] Glucose Auto test strip (U) [Mass/Vol] Negative Negative mg/dL [facility] Hemoglobin Auto test strip Ql (U) Moderate Abnormal Negative [facility] Interpretation and review of laboratory results Abnormal [facility] Ketones (U) [Mass/Vol] Negative Negative mg/dL [facility] Leukocyte esterase Auto test strip Ql (U) Trace Abnormal Negative [facility] Mucus Auto (Urine sed) [#/Area] Rare None Seen, Rare /lpf [facility] Nitrite Auto test strip Ql (U) Negative Negative [facility] pH (U) 7.0 [pH] [facility] Protein (U) [Mass/Vol] Negative Negative mg/dL [facility] RBC Auto (Urine sed) [#/Area] 2 [facility] Specific gravity (U) [Rel density] 1.011 [facility] Urobilinogen (U) [Mass/Vol] <2.0 <2.0 mg/dL [facility] WBC Auto (Urine sed) [#/Area] 2 [facility] Microscopic examination is performed on all urinalysis samples and only positive findings are reported. The test for blood on the chemical analytic portion of urinalysis may also be positive due to hemoglobinuria and myoglobinuria and if red blood cells are present they are quantified by microscopic examination. [facility] OB 1ST TRIMESTER WITH TRA NSVAGINAL [...] bleeding, spontaneous of is believed most likely. [facility] Workstation ID: [id number] Dictated by: SHAY FERNANDEZ on Sat Jul 14, 2020 12:00:51 PM EDT Transcribed by: PREETI VILLALTA on Sat Jul 14, 2020 12:07:08 PM EDT Finalized by: SHAY FERNANDEZ on Sat Jul 14, 2020 12:57:25 PM EDT Normal [facility] Comment on above: Order Comment: Injur y/Trauma [...] free peritoneal fluid is seen. [facility] 1. Normal study. 2. With a positive beta hCG, this is a of unknown location. Clinical correlation including serial beta hCG levels is needed differentiate the possibilities which include extremely early , spontaneous of recent , or ectopic gestation which is not directly visualized. With a history of bleeding, spontaneous of is believed most likely. [facility]/veronica Workstation ID: [id number] [facility] Interface, Rad In [facility] - 07/14/2020 1:00 PM EDT EXAMINATION: ULTRASOUND [...] bleeding, spontaneous of is believed most likely. [facility] Workstation ID: [id number] [facility] VAGINITIS DNA PROBESon 07-14 Olga sp DNA Probe+sig amp Ql (Vag fld) Negative Negative [facility] G. vaginalis DNA Probe+sig amp Ql (Vag fld) Negative Negative [facility] Interpretation and review of laboratory results Normal [facility] T. vaginalis DNA Probe+sig amp Ql (Vag fld) Negative Negative [facility] hCG, Blood, QUANTitativeon 0 07-14-2020 Beta HCG ( test) Ql (U) Males and non females: <5 mIU/mL Females during : 3-4 weeks 9-130 mIU/mL 4-5 weeks 75-2600 mIU/mL 5-6 weeks 850-20,800 mIU/mL 6-7 weeks 4000-100,200 mIU/mL 7-12 weeks 11,500-289,000 mIU/mL 12-16 weeks 18,300-137,000 mIU/mL 16-29 weeks 1,400-53,000 mIU/mL 29-41 weeks 940-60,000 mIU/mL [facility] HCG Qn 438 m[IU]/mL High [facility] Basic Metabolic Panelon 04-0 Anion gap [Moles/Vol] 7.0 mmol/L Normal 6.0-18.0 [facility] Comment on above: Performed By: #### 2 4321-2, 26095-2, 33152-0s6, 1987- ####[facility] [address], [place] Calcium [Mass/Vol] 8.6 mg/dL Low 8.9-10.3 [facility] Comment on above: Performed By: #### 2 4321-2, 42789-5, 53675-4k5, 1988-03 ####[facility] [address], [place] Chloride [Moles/Vol] 107 mmol/L Normal 98-107 [facility] Comment on above: Performed By: #### 2 1-2, 61595-1, 04957-9y0, 1988-03 ####[facility] [address], [place] CO2 [Moles/Vol] 24 mmol/L Normal 22-32 [facility] Comment on above: Performed By: #### 2 1-2, 53346-7, 72264-4d4, 1988-03 ####[facility] [address], [place] Creatinine [Mass/Vol] 0.67 mg/dL Normal 0.60-1.30 [facility] Comment on above: Performed By: #### 2 4320-2, 00081-6, 94715-3s7, 1988-03 ####[facility] [address], [place] Glucose [Mass/Vol] 105 mg/dL High 70-99 [facility] Comment on above: Result Comment: U pdated ADA Reference Range A normal fasting glucose concentration is less than 100 mg/dL. An impaired fasting glucose concentration is 100-125 mg/dL. A provisional diagnosis of diabetes mellitus can be made when a fasting glucose concentration is greater than 125 mg/dL. Performed By: #### 2 1-2, 23301-2, 27931-8k9, 1988-03 ####[facility] [address], [place] Potassium [Moles/Vol] 4.1 mmol/L Normal 3.6-5.1 [facility] Comment on above: Performed By: #### 2 4321-2, 36579-1, 56056-8a0, 1988-03 ####[facility] [address], [place] Sodium [Moles/Vol] 138 mmol/L Normal 136-145 [facility] Comment on above: Performed By: #### 2 4321-2, 25034-3, 98327-3k9, 1988-03 ####[facility] [address], [place] Urea nitrogen (BldV) [Mass/Vol] 8 mg/dL Normal 8-20 [facility] Comment on above: Performed By: #### 2 4321-2, 06073-7, 52146-0k9, 1988-03 ####[facility] [address], [place] C-Reactive Proteinon 019 CRP [Mass/Vol] 3.2 mg/dL High <1.0 [facility] Comment on above: Performed By: #### 2 4321-2, 43562-0, 64561-4a9, 1988-03 ####[facility] [address], [place] CBCon 03-01-2019 Erythrocyte distribution width (RBC) [Entitic vol] 14.3 % Normal 11.0-14.8 [facility] Comment on above: Performed By: #### 2 4317-0 ####[facility] [address], [place] Hematocrit (Bld) [Volume fraction] 37.5 % Normal 35.0-45.0 [facility] Comment on above: Performed By: #### 2 4317-0 ####[facility] [address], [place] Hemoglobin (Bld) [Mass/Vol] 12.5 g/dL Normal 12.0-16.0 [facility] Comment on above: Performed By: #### 2 4317-0 ####[facility] [address], [place] MCH (RBC) [Entitic mass] 28.1 Picograms Normal 27.0-34.0 [facility] Comment on above: Performed By: #### 2 4317-0 ####[facility] [address], [place] MCHC (RBC) [Mass/Vol] 33.3 g/dL Normal 32.0-36.0 [facility] Comment on above: Performed By: #### 2 4317-0 ####[facility] [address], [place] MCV (RBC) [Entitic vol] 84.6 fL Normal 80.0-97.0 [facility] Comment on above: Performed By: #### 2 4317-0 ####[facility] [address], [place] Platelet mean volume (Bld) [Entitic vol] 10.5 fL Normal 6.2-12.1 [facility] Comment on above: Performed By: #### 2 4317-0 ####[facility] [address], [place] Platelets (Bld) [#/Vol] 231 thou/mcL Normal 142-424 [facility] Comment on above: Performed By: #### 2 4317-0 ####[facility] [address] [place], [place] RBC (Bld) [#/Vol] 4.43 million/mcL Normal 3.80-5.10 [facility] Comment on above: Performed By: #### 2 4317-0 ####[place] [address] [place], [place] WBC (Bld) [#/Vol] 12.7 thou/mcL High 4.6-10.2 [facility] Comment on above: Performed By: #### 2 4317-0 ####[facility] [address] [place], [place] GFRaaon 03-01-2019 GFR/1.73 sq M predicted among blacks MDRD (S/P/Bld) [Vol rate/Area] mL/min/{1.73_m2} Normal [facility] Comment on above: Result Comment: The MDRD equation has not been validated for those over 70 years, women, patients with serious co-morbid conditions, or with extremes of body size, muscle mass of nutritional status. Performed By: #### 2 4321-2, 72084-7, 07683-9n5, 1988- ####[facility] [address] [place], [place] GFRbbon 03-01-2019 GFR/1.73 sq M predicted among non-blacks MDRD (S/P/Bld) [Vol rate/Area] mL/min/{1.73_m2} Normal [facility] Comment on above: Performed By: #### 2 4321-2, 87126-6, 85300-1s6, 1988-03 ####[facility] [address], [place] Glucose POCT (Uploaded)on Glucose [Mass/Vol] 87 mg/dL Normal 70-99 [facility] Comment on above: Result Comment: Nadia tment ranges and critical values established by Patient Care Services. All follow-up actions were taken by Patient Care Services. Performed By: #### 2 430-8 ####[facility] Glucose [Mass/Vol] 93 mg/dL Normal 70-99 [facility] Comment on above: Result Comment: Nadia tment ranges and critical values established by Patient Care Services. All follow-up actions were taken by Patient Care Services. Performed By: #### 2 430-8 ####[facility] Glucose [Mass/Vol] 95 mg/dL Normal 70-99 [facility] Comment on above: Result Comment: Nadia tment ranges and critical values established by Patient Care Services. All follow-up actions were taken by Patient Care Services. Performed By: #### 2 430-8 ####[facility] Glucose [Mass/Vol] 123 mg/dL High 70-99 [facility] Comment on above: Result Comment: [...] VELASQUEZ D.O.B./Sex: 1990 Female Med Rec #: [id number] Physician: Marcellus Driscoll MD Financial #: [id number] Pt. Type: I Room/Bed: 7T47/01 Admit/Disch: 02/28/19 [...] 15:45 Sherrie Rendon RN 03/01/19 07:03 Normal [facility] Patient Summaryon 03-01-2019 Patient Summary PATIENT DISCHARGE INSTRUCTIONS If you are having an emergency and are not able to reach your physician, CALL 911 or go to the nearest emergency room and take this document with you. [facility] 03/01/19 18:[address] [place] [address]. [id number] PATIENT INFORMATION Name: SABRINA VELASQUEZ Address: [address] [place] [id number] Age: 29 Years Phone: [phone] : 1990 12:00 MRN: [facility])-[id number] Sex: Female Race: White Ethnicity: Declined Admitted From: Clinic or [facility] Medical Service: Surgery Nurse Unit/Bed: ([place]) 7TWH 8L21-44 Admit Date: 02/28/2019 08:18 PCP: Omid Killian MD PHYSICIANS INVOLVED WITH CARE ------ Attending Physicians: Marcellus Driscoll MD - Surgery Admitting Physician: Marcellus Driscoll MD - Surgery Primary Care Physician:Omid Killian MD, - Consults: None found FOLLOW-UP APPOINTMENTS: Provider: Specialty: Address: Date: Marcellus Driscoll MD Surgery [address] [facility] [address] [place] [id number] (1) 03/08/19 01:45 pm Comment: Please follow-up at your pre-scheduled appointment. Provider: Specialty: Address: Date: Omid Killian MD [address] [place] [id number] (1) Follow-up as needed Provider: Specialty: Address: Date: Post-Op Nutrition Class [address] [facility] [address] 03/22/19 Comment: Please call [phone] for more information or to re-schedule. ALLERGIES: [...] doses are changed, or new medications (including pftw-vfa-kdqjimi products) are added. Ask your doctor if [...] diet. Follow recommendations from your surgeon and director news regarding you diet. Refer to nutrition information [...] doctor before taking any supplements, herbal or sxfo-hqq-obqgyru medications. Call your physician if any questions [...] suicide hotline, anytime day or night, at 0-529-716-XEGX. Important information about accessing your health information through the [facility] patient portal If you initiated the self-registration process for [facility] during your stay, please check your personal email for an invitation to enroll in [facility] and complete the steps outlined in the email. If you would prefer to enroll while in the hospital, ask a member of your care team. We would be happy to assist you. If you have already enrolled in [facility], go to [email or web address] to login and access your health information. Thank you for choosing [facility]. PATIENT EDUCATION Gastric Bypass Surgery, Care After [...] of caffeine can cause dehydration. ?? A director news may also give you specific instructions. ?? [...] 06/30/2005 Document Revised: 12/07/2015 Document Reviewed: 04/08/2011 [employer] Patient Education ??2016 [employer]. Gastric Bypass Discharge Instructions 1. Follow-up Care [...] dietitian for post-operative class at 2 weeks [phone] ? Call Bariatric Nurse Navigator [phone] with any further questions or concerns Call [phone] if you have difficulty breathing or chest [...] provided above is for informational purposes only. [facility] does not promote, condone or endorse all the values expressed herein. The values or opinions they express with regard to the use of artificial contraception are not consistent with the teachings of the [employer] and the Ethical and Evangelical Directives for [employer] Health Care Services. If any of these instructions are different from what your doctor tells you, follow your doctor's orders. If you smoke, you should quit. For more information, talk with your doctor or call [phone] ( ). PATIENT DISCHARGE INSTRUCTION Signature Page for: SABRINA VELASQUEZ Date/Time: 03/01/2019 18:42:02 A Clinician has explained the information on my discharge instructions and has provided me with a copy. My questions have been answered to my satisfaction. Patient Signature Date/Time Responsible Party Date/Time Relationship to Patient Clinician Signature Date/Time Normal [facility] Glucose POCT (Uploaded)on Glucose [Mass/Vol] 140 mg/dL High [address] [place] [address] Comment on above: Result Comment: Nadia tment ranges and critical values established by Patient Care Services. All follow-up actions were taken by Patient Care Services. Performed By: #### 2 430-8 ####[facility] Glucose [Mass/Vol] 127 mg/dL [address] Comment on above: Result Comment: Nadia tment ranges and critical values established by Patient Care Services. All follow-up actions were taken by Patient Care Services. Performed By: #### 2 430-8 ####[facility] Glucose [Mass/Vol] 141 mg/dL [address] Comment on above: Result Comment: Nadia tment ranges and critical values established by Patient Care Services. All follow-up actions were taken by Patient Care Services. Performed By: #### 2 430-8 ####[facility] Glucose [Mass/Vol] 164 mg/dL [address] Comment on above: Result Comment: Nadai tment ranges and critical values established by Patient Care Services. All follow-up actions were taken by Patient Care Services. Performed By: #### 2 430-8 ####[facility] OR Nursingon 02-28-2019 OR Nursing [facility] OR Nursing Record Summary Primary Physician: Marcellus Driscoll MD Finalized Date/Time: 02/28/19 14:10:30 Pt. Name: SABRINA VELASQUEZ/Sex: 1990 Female Med Rec #: [id number] Physician: Marcellus Driscoll MD Financial #: [id number] Pt. Type: I Room/Bed: / Admit/Disch: 02/28/19 [...] [place] Role Performed Primary Surgeon Anesthesiologist Nurse Transfer Car Operator Drier Time In 02/28/19 11:17:00 02/28/19 11:17:00 02/28/19 [...] Guaman RN , Litzy Garcia Role Performed refractory mixer RN First Scrub Time In 02/28/19 11:17:00 02/28/19 11:17:00 02/28/19 11:17:00 Time Out 02/28/19 14:05:00 02/28/19 14:05:00 02/28/19 14:05:00 Procedure Bypass Gastric Bypass Gastric Bypass Gastric Robot(N/A) Robot(N/A) Robot(N/A) Attendee Comment LUNCH [phone] LUNCH [phone] lunch [phone] Relief Reason Last Modified By: Abner RN , Disha Levine RN , Disha Levine RN , Disha Aiken 02/28/19 14:09:25 02/28/19 14:09:25 02/28/19 14:09:25 Entry 7 Entry 8 Entry 9 Case Attendee Adi MARTIN , Gissell S Hefel, Swetha C Case, Attendee Other Role Performed refractory mixer First Scrub Cold Rolling Machine Setter Time In 02/28/19 11:48:00 02/28/19 11:57:00 02/28/19 11:17:00 Time Out 02/28/19 12:40:00 02/28/19 12:53:00 02/28/19 14:05:00 Procedure Bypass Gastric Bypass Gastric Bypass Gastric Robot(N/A) Robot(N/A) Robot(N/A) Attendee Comment [place] MIRANDA - INTUITIVE Relief Reason Last Modified By: Abner MARTIN , Disha Levine RN , Disha Levine RN , Disha Aiken 02/28/19 14:09:25 02/28/19 14:09:25 02/28/19 14:09:25 CO [facility] OR General Case Paint Laboratory Technician 1 OR CO W 11 ASA Class [...] Arrival? No 16FR TEMP SEN W/URINE METER [id number] Inserted By Rowena MARTIN , Oly Moreno [...] OR Temperature Regulation Entry 1 Unit ID [id number] Site UPPER BODY Last Modified By: Gissell [...] By: Disha Levine RN 02/28/19 14:10 Normal [facility] PreOp Nursingon 02-28-2019 PreOp Nursing [facility] PreOp Nursing Record Summary Primary Physician: Marcellus Driscoll MD Finalized Date/Time: 02/28/19 12:08:12 Pt. Name: SABRINA VELASQUEZ Ayden /Sex: 1990 Female Med Rec #: [id number] Physician: Marcellus Driscoll MD Financial #: [id number] Pt. Type: I Room/Bed: / Admit/Disch: 02/28/19 [...] By: Gissell Joshi RN 02/28/19 12:08 Normal [facility] CBC with Differentialon 01-29 Basophils (Bld) [#/Vol] 0.00 thou/mcL Normal 0.00-0.20 [facility] Comment on above: Performed By: #### 5 7021-8 #### [address] Basophils/100 WBC (Bld) 0.4 % Normal 0.0-2.0 [facility] Comment on above: Performed By: #### 5 7021-8 #### [address] Eosinophils (Bld) [#/Vol] 0.10 thou/mcL Normal 0.00-0.70 [facility] Comment on above: Performed By: #### 7021-8 #### [facility] Eosinophils/100 WBC (Bld) 1.5 % Normal 0.0-7.0 [facility] Comment on above: Performed By: #### 70-8 #### [facility] [id number] [place], [place] Erythrocyte distribution width (RBC) [Entitic vol] 14.8 % Normal 11.0-14.8 [facility] Comment on above: Performed By: #### 70-8 #### [address] Hematocrit (Bld) [Volume fraction] 41.4 % Normal 35.0-45.0 [facility] Comment on above: Performed By: #### 70-8 #### [address] Hemoglobin (Bld) [Mass/Vol] 13.7 g/dL Normal 12.0-16.0 [facility] Comment on above: Performed By: #### 7021-8 #### [address] Lymphocytes (Bld) [#/Vol] 1.80 thou/mcL Normal 1.00-4.80 [facility] Comment on above: Performed By: #### 7021-8 #### [address] Lymphocytes/100 WBC (Bld) 21.5 % Low 22.0-44.0 [facility] Comment on above: Performed By: #### 7021-8 #### [address] MCH (RBC) [Entitic mass] 28.6 Picograms Normal 27.0-34.0 [facility] Comment on above: Performed By: #### 7021-8 #### [address] MCHC (RBC) [Mass/Vol] 33.2 g/dL Normal 32.0-36.0 [facility] Comment on above: Performed By: #### 7021-8 #### [place] [id number] [place], [place] MCV (RBC) [Entitic vol] 86.0 fL Normal 80.0-97.0 [facility] Comment on above: Performed By: #### 70-8 #### [address] Monocytes (Bld) [#/Vol] 0.60 thou/mcL Normal 0.00-0.90 [facility] Comment on above: Performed By: #### 7020-8 #### [facility] Monocytes/100 WBC (Bld) 7.5 % Normal 0.0-12.0 [facility] Comment on above: Performed By: #### 7020-8 #### [facility] Neutrophils (Bld) [#/Vol] 5.90 thou/mcL Normal 1.80-7.70 [facility] Comment on above: Performed By: #### 7020-8 #### [facility] Neutrophils/100 WBC (Bld) 69.1 % Normal 40.0-70.0 [facility] Comment on above: Performed By: #### 70-8 #### [facility] Platelet mean volume (Bld) [Entitic vol] 11.3 fL Normal 6.2-12.1 [facility] Comment on above: Performed By: #### 70-8 #### [address] Platelets (Bld) [#/Vol] 194 thou/mcL Normal 142-424 [facility] Comment on above: Performed By: #### 70-8 #### [facility] RBC (Bld) [#/Vol] 4.81 million/mcL Normal 3.80-5.10 [facility] Comment on above: Performed By: #### 5 7021-8 #### [facility] [address], [place] WBC (Bld) [#/Vol] 8.5 thou/mcL Normal 4.6-10.2 [facility] Comment on above: Performed By: #### 5 7021-8 #### [facility] [address], [place] Comprehensive Metabolic Pane satnam 2019 Albumin [Mass/Vol] 3.3 g/dL Low 3.5-4.8 [facility] Comment on above: Performed By: #### 2 4323-8, 75140-8q8, 67237-4 ####[facility] [address], [place] ALP [Catalytic activity/Vol] 72 Units/L Normal 32-91 [facility] Comment on above: Performed By: #### 2 4323-8, 30062-4d9, 78493-2 ####[facility] [address], [place] ALT [Catalytic activity/Vol] 18 Units/L Normal 14-63 [facility] Comment on above: Performed By: #### 2 4323-8, 67546-6o4, 96387-9 ####[facility] [address], [place] Anion gap [Moles/Vol] 10.0 mmol/L Normal 6.0-18.0 [facility] Comment on above: Performed By: #### 2 4323-8, 21994-7d1, 42046-2 ####[facility] [address], [place] AST [Catalytic activity/Vol] 17 Units/L Normal 15-41 [facility] Comment on above: Performed By: #### 2 4323-8, 23509-3x6, 34343-4 ####[facility] [address], [place] Bilirubin [Mass/Vol] 0.7 mg/dL Normal 0.3-1.2 [facility] Comment on above: Performed By: #### 2 4323-8, 08542-3w6, 64801-5 ####[facility] [address], [place] Calcium [Mass/Vol] 8.5 mg/dL Low 8.9-10.3 [facility] Comment on above: Performed By: #### 2 4323-8, 27480-6q3, 72634-5 ####[facility] [address], [place] Chloride [Moles/Vol] 104 mmol/L Normal 98-107 [facility] Comment on above: Performed By: #### 2 4323-8, 46602-4c3, 00465-0 ####[place] [address], [place] CO2 [Moles/Vol] 22 mmol/L Normal 22-32 [facility] Comment on above: Performed By: #### 2 4323-8, 59148-2u5, 96023-7 ####[facility] [address], [place] Creatinine [Mass/Vol] 0.79 mg/dL Normal 0.60-1.30 [facility] Comment on above: Performed By: #### 2 4323-8, 20696-6r1, 45265-8 ####[facility] [address], [place] Glucose [Mass/Vol] 93 mg/dL Normal 70-99 [facility] Comment on above: Result Comment: U pdated ADA Reference Range A normal fasting glucose concentration is less than 100 mg/dL. An impaired fasting glucose concentration is 100-125 mg/dL. A provisional diagnosis of diabetes mellitus can be made when a fasting glucose concentration is greater than 125 mg/dL. Performed By: #### 2 4323-8, 91350-0y8, 22695-7 ####[facility] [address], [place] Potassium [Moles/Vol] 4.1 mmol/L Normal 3.6-5.1 [facility] Comment on above: Performed By: #### 2 4323-8, 26277-8g2, 58798-7 ####[facility] [address], [place] Protein [Mass/Vol] 6.0 g/dL Low 6.1-7.9 [facility] Comment on above: Performed By: #### 2 4323-8, 88174-6y8, 19958-1 ####[facility] [address], [place] Sodium [Moles/Vol] 136 mmol/L Normal 136-145 [facility] Comment on above: Performed By: #### 2 4323-8, 98250-2q6, 11527-9 ####[facility] [address], [place] Urea nitrogen (BldV) [Mass/Vol] 13 mg/dL Normal 8-20 [facility] Comment on above: Performed By: #### 2 4323-8, 80097-0d3, 67723-2 ####[facility] [address], [place] GFRaaon 2019 GFR/1.73 sq M predicted among blacks MDRD (S/P/Bld) [Vol rate/Area] mL/min/{1.73_m2} Normal [facility] Comment on above: Result Comment: The MDRD equation has not been validated for those over 70 years, women, patients with serious co-morbid conditions, or with extremes of body size, muscle mass of nutritional status. Performed By: #### 2 4323-8, 87996-9i1, 21253-6 ####[facility] [address], [place] GFRbbon 2019 GFR/1.73 sq M predicted among non-blacks MDRD (S/P/Bld) [Vol rate/Area] mL/min/{1.73_m2} Normal [facility] Comment on above: Performed By: #### 2 4323-8, 77486-6s3, 69091-5 ####[facility] [address], [place] Glycohemoglobin (HGB A1C) Emanuel guardado 2019 HbA1c (Bld) [Mass fraction] 5.0 % tl hgb Normal <5.6 [facility] Comment on above: Result Comment: U pdated ADA Reference Range HbA1c values of 5.7-6.4 percent indicate an increased risk for developing diabetes mellitus. HbA1c values greater than or equal to 6.5 percent are diagnostic of diabetes mellitus. For diagnosis of diabetes in individuals without unequivocal hyperglycemia, results should be confirmed by repeat testing. Performed By: #### 4 549-2 ####[facility], [address] [place] [address]. Partial Thromboplastin Time (aPTT)on 2019 aPTT Coag (PPP) [Time] 29.6 Sec Normal 23.6-35.3 [facility] Comment on above: Performed By: #### 3 173-2, 5902-2 ####[facility], [address] [place] [address]. Prothrombin Timeon 9 INR Coag (Bld) [Relative time] 1.00 {INR} Normal [facility] Comment on above: Result Comment: The recommended therapeutic INR range for most cardiac indications is 2.0-3.0. For high intensity therapy(ie.mechanical heart valves), the recommended range is 2.5-3.5. Performed By: #### 3 173-2, 5902-2 ####[facility], [address] [place] [address]. PT Coag (PPP) [Time] 11.5 Sec Normal 9.3-12.4 [facility] Comment on above: Performed By: #### 3 173-2, 5902-2 ####[facility], [address] [place] [address]. XR Chest 2 Viewson 9 XR Chest 2 views Two-view chest exam Indication: pre-op. Cough for the past week. COMPARISON: E 66.01 FINDINGS: The lungs are clear and the costophrenic angles are sharp. The cardiomediastinal silhouette and bones are normal. IMPRESSION: Normal chest. [facility] thanks you for the opportunity to care for your patient. Workstation ID: [id number] FINAL REPORT Dictated By: Jean Hull MD 2019 08:47 Assigned Physician: Jean Hull MD Reviewed and Electronically Signed By: Jean Hull MD 2019 08:48 Transcribed by: GREGORY 2019 08:47 Technologist: SHAKA Carranza [facility] OR Nursingon 09-17-2018 OR Nursing CO [facility] OR Nursing Record Summary Primary Physician: Tristan Dickey MD Finalized Date/Time: 09/17/18 07:39:53 Pt. Name: SABRINA VELASQUEZ /Sex: 1990 Female Med Rec #: [id number] Physician: Financial #: [id number] Pt. Type: I Room/Bed: / Admit/Disch: 09/16/18 [...] Wolf DO Role Performed Primary Surgeon Nurse Transfer Car Operator Drier Anesthesiologist Time In 09/16/18 14:20:00 09/16/18 14:20:00 09/16/18 14:20:00 Time Out 09/16/18 14:30:00 09/16/18 14:30:00 09/16/18 14:30:00 Procedure Egd_(N/A) Egd_(N/A) Egd_(N/A) Attendee Comment Relief Reason Last Modified By: Breanna RN , Afia Carlos RN , Afia Carlos RN , Afia 09/16/18 14:31:12 09/16/18 14:31:12 09/16/18 14:31:12 Entry 4 Entry 5 Case Attendee Breanna RN , Afia Bernabe RN , Rosalio Butterfield Performed refractory mixer Artifacts Conservator Time In 09/16/18 14:20:00 09/16/18 14:20:00 Time Out 09/16/18 14:30:00 09/16/18 14:30:00 Procedure Egd_(N/A) Egd_(N/A) Attendee Comment Relief Reason Last Modified By: Breanna RN , Afia Carlos RN , Afia 09/16/18 14:31:12 09/16/18 14:31:12 CO [facility] General Case Paint Laboratory Technician 1 OR CO W EN 02 ASA [...] 07:39 Sherrie Rendon RN 09/17/18 07:39 Normal [facility] Post PACU Nursingon 09-17-20 Post PACU Nursing CO [facility] PACU II Nursing Record Summary Primary Physician: Tristan Dickey MD Finalized Date/Time: 09/17/18 07:40:27 Pt. Name: SABRINA VELASQUEZ/Sex: 1990 Female Med Rec #: [id number] Physician: Financial #: [id number] Pt. Type: I Room/Bed: / Admit/Disch: 09/16/18 [...] 07:35 Sherrie Rendon RN 09/17/18 07:40 Normal [facility] PreOp Nursingon 09-17-2018 PreOp Nursing CO [facility] PreOp Nursing Record Summary Primary Physician: Tristan Dickey MD Finalized Date/Time: 09/17/18 07:36:42 Pt. Name: FRANCISCO VELASQUEZPAULINE Garcia/Sex: 1990 Female Med Rec #: [id number] Physician: Financial #: [id number] Pt. Type: I Room/Bed: / Admit/Disch: 09/16/18 [...] 07:36 Sherrie Rendon RN 09/17/18 07:36 Normal [facility] Patient Summaryon 09-16-2018 Patient Summary PATIENT DISCHARGE INSTRUCTIONS If you are having an emergency and are not able to reach your physician, CALL 911 or go to the nearest emergency room and take this document with you. [facility] 09/16/18 14:45 [address] [place]. [address] PATIENT INFORMATION Name: SABRINA VELASQUEZ Address: [address] [place] [address] Age: 28 Years Phone: [phone] : 1990 12:00 Sex: Female Race: White Ethnicity: Declined Admitted From: Clinic or [facility] Medical Service: Surgery Nurse Unit/Bed: (STEVEN LOWRY [...] doses are changed, or new medications (including eejw-fht-oftrnmz products) are added. Ask your doctor if [...] suicide hotline, anytime day or night, at 5-572-229-ZHXT. Important information about accessing your health information through the [facility] patient portal If you initiated the self-registration process for [facility] during your stay, please check your personal email for an invitation to enroll in [facility] and complete the steps outlined in the email. If you would prefer to enroll while in the hospital, ask a member of your care team. We would be happy to assist you. If you have already enrolled in [facility]ive, go to [email or web address] to login and access your health information. Thank you for choosing [facility]. PATIENT EDUCATION Esophagogastroduodeno scopy, Care After Refer [...] Reviewed: 11/02/2013 Elsevier Interactive Patient Education ?2016 [employer] VIRUSES OR BACTERIA: WHAT'S GOT YOU [...] Relationship to Patient Clinician Signature Date/Time Normal [facility] ECG 12 leadon 06-14-2018 Atrial Rate Invalid Interpretation Code [facility] P Rumney Invalid Interpretation Code [facility] P-R Interval Invalid Interpretation Code [facility] Q-T Interval Invalid Interpretation Code [facility] Q-T Interval (corrected) Invalid Interpretation Code [facility] QRS Duration Invalid Interpretation Code [facility] QTC Calculation (Bezet) Invalid Interpretation Code [facility] R Rumney Invalid Interpretation Code [facility] T Rumney Invalid Interpretation Code [facility] Ventricular Rate Invalid Interpretation Code [facility] Vital Signs Date Time Vital Sign Value Performing Clinician Abbey ruiz 07-14-2020 13:00-0400 BP Diastolic 78 mm[Hg] [facility] 07-14-2020 13:00-0400 BP Systolic 123 mm[Hg] [facility] [place] [facility] 07-14-2020 13:00-0400 Pulse (Heart Rate) 55 /min [facility] 07-14-2020 13:00-0400 Pulse Oximetry 100 % Alicia Hudson [facility] 07-14-2020 10:06-0400 Body Temperature 98.8 [degF] [facility] 07-14-2020 10:04-0400 BMI (Body Mass Index) 43.58 kg/m2 Alicia Hudson [facility] 07-14-2020 10:04-0400 Body weight 122.47 kg Alicia Hudson [facility] 07-14-2020 10:04-0400 Height 167.6 cm [facility] 07-14-2020 10:04-0400 Respiratory Rate 16 /min Alicia Hudson [facility] 06-14-2018 09:16-0400 BMI (Body Mass Index) 63.24 kg/m2 [facility] 06-14-2018 09:16-0400 BP Diastolic 84 mm[Hg] [facility] 06-14-2018 09:16-0400 BP Systolic 128 mm[Hg] [facility] 06-14-2018 09:16-0400 Height 167.6 cm [facility] 06-14-2018 09:16-0400 Pulse (Heart Rate) 64 /min [facility] 06-14-2018 09:16-0400 Pulse Oximetry 98 % [facility] 06-14-2018 09:16-0400 Weight 177.72 kg [facility] Encounters Encounter Date Encounter Type Care [...] 07-14-2020 Emergency department patient visit OMID MARTINEZ [facility] Start: 07-14-2020 End: 07-14-2020 Emergency department patient visit Alicia Hudson Work Phone: [facility] Emergency Department Comment on above: Threatened (Primary Dx) Start: 12-13-2018 End: 12-13-2018 Patient encounter procedure Lauren Hagan [facility] Start: 06-14-2018 End: 06-14-2018 Patient encounter PROVIDER NOT IN SYSTEM [facility] Start: 06-14-2018 End: 06-14-2018 Office outpatient new 30 minutes Provider Not In System [facility] Start: 05-17-2018 End: 05-17-2018 Patient encounter VANESSA EDOUARD [facility] Start: 05-17-2018 End: 05-17-2018 Office outpatient new 30 minutes Vanessa Edouard Work Phone: [facility] Procedures Date Procedure Procedure [...] given Sequential Influenza Vaccine (#1) [facility] Start: 07-31-2018 Influenza vaccination [facility] Start: 07-31-2018 Influenza vaccinatio n given SEQUENTIAL INFLUENZA VACCINE (#1) [facility] Start: 07-19-2018 End: 07-19-2018 Ambulatory 07/19/2018 Office Visit Dermatology Vanessa Edouard Jr., DO [address] [place] [address] [phone] [facility] Start: 06-14-2018 End: 06-14-2018 Ambulatory 06/14/2018 Office Visit Cardiology System, Provider Not In TracyJosefina moreira MD [address] [facility] [place] [address] [phone] [facility] Start: 02-21-2010 Hepatitis C antibody , confirmatory test Hepatitis C Screening [facility] Start: 02-21-2007 HIV screening HIV Screening [facility] Start: 02-21-1995 History and physical examination, annual for health maintenance Wellness Visit [facility] Start: 1992 Screening for malign ant neoplasm of cervix PAP SMEAR [facility] Start: 1992 Tetanus vaccination [facility] End: 07-14-2020 Neisseria gonorrhoeae nucleic acid detection Chlamydia/Gonorrhoeae Amplified RNA Microbiology Routine Once for 1 Occurrences starting 07/14/2020 until 07/14/2020 [facility] Comment on above: Once for 1 Occurrenc es starting 07/14/2020 until 07/14/2020 Neisseria gonorrhoea e nucleic acid detection Chlamydia/Gonorrhoeae Amplified RNA Microbiology Routine 07/14/2020 11:20 AM EDT [facility] Payers Date Payer Category Payer Medicaid [id number] 2020 Medicaid [employer] xxxxxxxxxxx 2020-Present xxxxxxxxxxx [id number] 2020 Medicaid [id number] 2019 Private Health Insurance [id number] 2017 Unknown [id number] 2017 Unknown [facility] HMO/BECKY/ BECKY PLUS/CHOICE PLUS xxxxxxxxx 2017-Present xxxxxxxxx [id number] 1992 Unknown [id number] [id number]. 903 1992 Unknown [id number] 2.16.840.1.532715.3.579.2. 9 1992 Unknown [id number] 2.16.840.1.015447.3.579.2. 9 1992 Unknown [id number] 2.16.840.1.309671.3.579.2. 9 1992 Unknown [id number] 2.16.840.1.436694.3.579.2. 1258 1992 Unknown [id number] 2.16.840.1.256748.3.579.2. 1258 1992 Unknown [id number] 2.16.840.1.563689.3.579.2. 1258 1992 Unknown [id number] 2.16.840.1.268623.3.579.2. 9 1992 Unknown [id number] 2.16.840.1.237736.3.579.2. 1258 1992 Unknown [id number] [id number]. 1259 Social History Date Type Detail Facility Start: 05-17-2018 End: 06-14-2018 Tobacco smoking status [facility] Never smoker [facility] Sex Assigned At Not on file [facility] Start: 07-14-2020 Tobacco smoking status [facility] Current some day smoker [facility] Start: 07-14-2020 Alcohol intake Current non-dr director of institutional sales of alcohol (finding) [facility] Exposure to SARS-CoV -2 (event) Not sure [facility] Assessments Note Patient: SABRINA VELASQUEZ Age: [...] for home later today Logan Driscoll MD [phone] SURGERY PROGRESS NOTE SUBJECTIVE: Patient denies abd [...] FoundDocuments on File Type Date Recorded Patient B2B Sales Manager Expl 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 [facility] 09/16/18 14:45 [address] [place]. [address] PATIENT INFORMATION Name: SABRINA VELASQUEZ Address: [address] [place] [address] Age: 28 Years Phone: [phone] : 1990 12:[birth year] MRN: ([id number] Sex: Female Race: White Ethnicity: Declined Admitted [...] summary document to your follow up appointments. [facility] 03/01/19 18:42 [address] [place]. [address] PATIENT INFORMATION Name: SABRINA VELASQUEZ Address: [address] [place] [address] Age: 29 Years Phone: [phone] : 1990 12:00 MRN: [facility])-[id number] Sex: Female Race: White Ethnicity: Declined Admitted From: Clinic or [facility] Medical Service: Surgery Nurse Unit/Bed: (CO) 7TWH 4Y73-13 Admit Date: 02/28/2019 08:18 PCP: Omid Killian MD PHYSICIANS INVOLVED WITH CARE Attending Physicians: Marcellus Driscoll MD - Surgery Admitting Physician: Marcellus Driscoll MD - Surgery Primary Care Physician:Omid Killian MD, - Consults: None found Problems Active Morbid (severe) obesity due to excess calories Obesity IBS (irritable bowel syndrome) GERD (gastroesophageal reflux (more content not included)... Note Patient: SABRINA VELASQUEZ [facility] : [id number] Age: 29 years Sex: Female : 1990 [...] GERD, IBS, and heart murmur presented to [facility] on 02/28/2019 for an elective robotically assisted laparoscopic Milton-en-Y gastric bypass with by Purnima albarran an had an extensive preoperative workup. Patient tolerated the procedure well and was transferred to PACU in stable condition where she had an uneventful recovery. His then tra (more content not included)... Note Patient: SABRINA VELASQUEZ MRN : [id number] Age: 29 years Sex: Female : 1990 [...] for home later today Logan Driscoll MD [phone] SURGERY PROGRESS NOTE SUBJECTIVE: Patient denies abd [...] (02/28 12:00 (more content not included)... Note [facility] Patient Name: Sabrina Velasquez Procedure Date: [...] not included)... Note Patient: SABRINA VELASQUEZ MRN: [facility])-[id number] Age: 28 years Sex: Female : 1990 Associated Diagnoses: None Author: Kasie Delvalle CRNA Supervising Physician Comments Documentation By: Certified Registered Nurse Transfer Car Operator Drier. Subjective Subjective: Patient participated in the evaluation: [...] concluded. Note Patient: SABRINA VELASQUEZ MRN : [facility])-[id number] Age: 29 years Sex: Female : 1990 [...] (more content not included)... Procedure Findings Note [facility] Patient Name: Sabrina Velasquez Procedure Date: [...] not included)... Note Patient: SABRINA VELASQUEZ MRN: [facility])-[id number] Age: 28 years Sex: Female : 1990 Associated Diagnoses: None Author: Kasie Delvalle CRNA Supervising Physician Comments Documentation By: Certified Registered Nurse Transfer Car Operator Drier. Subjective Subjective: Patient participated in the evaluation: [...] concluded. Note Patient: SABRINA VELASQUEZ MRN : [facility])-[id number] Age: 29 years Sex: Female : 1990 [...] of flow through graft (Firefly). SURGEON: Logan rDiscoll MD RESIDENT SURGEON: John Bustamante MD ANESTHESIA: [...] sent through Care Everywhere. * Miscarriage: Threatened (Setswana) documented in this encounter Additional Source Comments [...] nondistended Alicia Hudson MD ED Attending Physician [facility] Emergency Department documented in this encounter INFORMATION SOURCE (unrecogn ized section and content) DATE CREATED AUTHOR 06/15/2018 [facility] DATE CREATED AUTHOR AUTHOR'S ORGANIZ ATION 08/09/2019 [facility] DATE CREATED AUTHOR AUTHOR'S ORGANIZ ATION 12/27/2020 [facility] DATE CREATED AUTHOR AUTHOR'S ORGANIZ ATION 05/20/2024 [facility] d[facility] Specialists EPIC Reason for Visit (unrecogniz ed section and content) Reason Comments Vaginal Bleeding Chris Pate PA-C - 07/14/2020 10:43 AM Dorinda Avila RN - 07/14/2020 10:07 AM Dorinda Avila RN - 07/14/2020 10:04 AM EDT ED Notes (unrecognized secti on and content) ED PROVIDER NOTE [facility] EMERGENCY [facility]MENT NAME: Sabrina Velasquez AGE: 30 y.o. : 1990 VISIT DATE: 07/14/2020 CSN: [id number] PCP: Omid Killian MD Clinical Impression: 1. Threatened ED Disposition ED Disposition Condition Comment Discharge Stable Sabrina Velasquez discharged to home/self care in stable condition. Follow-up Information 1. Roni Clemens MD. Specialty: Obstetrics/Gynecology Why: For recheck of today's symptoms [address] [facility] [address] 2. [facility] Emergency Department. Specialty: Emergency Medicine Why: As needed, If symptoms worsen [address] [place] [address] Contact information for after-discharge care Follow-up information [...] this point clinically. Patient has appointment with NET SOFTWARE DEVELOPER on Thursday. Considered implantation bleeding, threatened , [...] reports she is scheduled to see her NET SOFTWARE DEVELOPER Dr. Clemens next week. Patient denies any [...] file Gets together: Not on file Attends restoration service: Not on file Active member of [...] nursing note reviewed. Exam conducted with a chief investigator present. Constitutional: Appearance: Normal appearance. HENT: Head: [...] Colorless, Yellow Clarity, Urine Clear Clear Specific [place] 1.011 1.005 - 1.025 pH, Urine 7.0 [...] bleeding, spontaneous of is believed most likely. [facility] Workstation ID: [id number] Procedures The patient [...] pre-hypertension or hypertension. . Chris Pate PA-C [facility] Emergency Department Chris Pate PA-C 07/14/20 1340 [...] BE BASED ON THE PRIMARY CLINICAL RECORDS. [facility] [employer] [facility] provides no warranty or guarantee of the accuracy or completeness of information in this document.
== END 2024-06-01 21:14 | disposition home or self-care (01) ==
LOC: LAB 21:13
PROVIDERS: Visit Provider Obstetrics & Gynecology
DX: Z34.93 Encounter for supervision of normal pregnancy, unspecified, third trimester (principal)
CPT/HCPCS: 87081

== ENCOUNTER 2024-06-04 05:51 | Outpatient (OUT) | payer OTHER, SELFPAY ==
--- OUTSIDE RECORDS SUMMARY | 2024-06-04 05:55 | XMS_ITS ---
Patient Summarization (C-CDA 2.1 CCD) Created on: June 04, 2024 SABRINA VELASQUEZ~EVA BENNETT : 1990 Sex: Female Author Organization Sample organization Care Team Providers Care Extension Forester Name Role Phone Killian, Omid Sandadi Unavailable Unavailabl e MOROCCO, VANESSA Unavailable Unavailable KILLIAN, OMID SANDADI Unavailable Unavailabl e SYSTEM, PROVIDER NOT IN Unavailable Unavaila ble TRACY, NOWWAR GHAZI YASIN Unavailable Unav ailable YAMILA', LOGAN Unavailable Unavailabl e KILLIAN, OMID SANDADI Unavailable Unavailabl e Killian, Omid Sandadi Primary Care Provider [phone] KILLIAN, OMID SANDADI Primary Care Unavailabl e ALICIA HUDSON Attending Unavailable MAKAYLA, LIA Attending Unavailable MAKAYLA, LIA Attending Unavailable MIRIAN, MARITZA Attending Unavailable MAKAYLA, LIA Attending Unavailable MIRIAN, MARITZA Attending Unavailable MAKAYLA, LIA Attending Unavailable MIRIAN, MARITZA Attending Unavailable MAKAYLA, LIA Attending Unavailable MAKAYLA, LIA Attending Unavailable Encounters Encounter Date Encounter Type Care Provider Facility Start: 06-01-2024 End: 06-01-2024 ambulatory LIA MAKAYLA Not Available Start: 05-19-2024 End: 05-19-2024 ambulatory LIA MAKAYLA [...] Emergency department patient visit OMID MARTINEZ KILLIAN [facility] Start: 07-14-2020 End: 07-14-2020 Emergency department patient visit Alicia Hudson Work Phone: [facility] Emergency Department Comment on above: Threatened (Primary Dx) Start: 12-13-2018 End: 12-13-2018 Patient encounter procedure Lauren Hagan [facility] Dermatology Start: 06-14-2018 End: 06-14-2018 Patient encounter PROVIDER NOT IN SYSTEM [facility] Start: 06-14-2018 End: 06-14-2018 Office outpatient new 30 minutes Provider Not In System [facility] Cardiology Start: 05-17-2018 End: 05-17-2018 Patient encounter VANESSA EDOUARD [facility] Start: 05-17-2018 End: 05-17-2018 Office outpatient new 30 minutes Vanessa Edouard Work Phone: [facility] Dermatology Medications Current Medications Medication Drug [...] mcg Payers Date Payer Category Payer Medicaid [id number] 2020 Medicaid [employer] MEDICA[employer]ICA[employer] xxxxxxxxxxx 2020-Present xxxxxxxxxxx [id number] 2020 Medicaid [id number] 2019 Private Health Insurance [id number] 2017 Unknown [id number] 2017 Unknown [facility] HMO/BECKY/ BECKY PLUS/CHOICE PLUS xxxxxxxxx 2017-Present xxxxxxxxx [id number] 1992 Unknown [id number] [id number]. 903 1990 Unknown [id number] 2.840.1.586302.3.579.2. 9 1990 Unknown [id number] 2.16840.1.239496.3.579.2. 1258 1992 Unknown [id number] 2.16840.1.528936.3.579.2. 1258 1990 Unknown [id number] 2.16840.1.902689.3.579.2. 1258 1992 Unknown [id number] 2.16840.1.630671.3.579.2. 1258 1992 Unknown [id number] 2.16.840.1.671284.3.579.2. 9 1990 Unknown [id number] 2.16840.1.741544.3.579.2. 9 1992 Unknown [id number] 2.16.840.1.990058.3.579.2. 1259 1990 Unknown [id number] 2.16.840.1.902848.3.579.2. 1259 1990 Unknown [id number] [id number]. 1259 Plan of Treatment Date Care Activity Detail Author Start: 07-31-2020 Influenza vaccinatio n given Sequential Influenza Vaccine (#1) [facility] Start: 07-31-2018 Influenza vaccination [facility] Start: 07-31-2018 Influenza vaccinatio n given SEQUENTIAL INFLUENZA VACCINE (#1) [facility] Start: 07-19-2018 End: 07-19-2018 Ambulatory 07/19/2018 Office Visit Dermatology Vanessa Edouard Jr., DO [address] [place] [address] [phone] [facility] Dermatology Start: 06-14-2018 End: 06-14-2018 Ambulatory 06/14/2018 Office Visit Cardiology System, Provider Not In [facility], Josefina Matthew MD [address] [place] [address] [phone] [facility] Cardiology Start: 02-21-2010 Hepatitis C antibody , confirmatory test Hepatitis C Screening [facility] Start: 02-21-2007 HIV screening HIV Screening [facility] Start: 02-21-1995 History and physical examination, annual for health maintenance Wellness Visit [facility] Start: 1990 Screening for malign ant neoplasm of cervix PAP SMEAR [facility] Start: 1992 [facility] End: 07-14-2020 Neisseria gonorrhoeae nucleic acid detection Chlamydia/Gonorrhoeae Amplified RNA Microbiology Routine Once for 1 Occurrences starting 07/14/2020 until 07/14/2020 [facility] Comment on above: Once for 1 Occurrenc es starting 07/14/2020 until 07/14/2020 Neisseria gonorrhoea e nucleic acid detection Chlamydia/Gonorrhoeae Amplified RNA Microbiology Routine 07/14/2020 11:20 AM EDT [facility] Problems Problem Classification Problem Date Documented Date [...] TOP Alicia Hudson Work Phone: Start: 07-14-2020 uterus 14 wk transabdl 11/30 gestat Chris [...] and Rh group Nom (Bld) ABO/Rh Verification [facility] BMPon 07-14-2020 Anion gap [Moles/Vol] 6 mmol/L Low 10 - 20 mmol/L [facility] Calcium [Mass/Vol] 9.0 mg/dL 8.4 - 10. 2 mg/dL [facility] Chloride [Moles/Vol] 113 mmol/L High 98 - 108 mmol/L [facility] Creatinine [Mass/Vol] 0.64 mg/dL 0.40 - 1.10 [facility] GFR/1.73 sq M predicted among non-blacks MDRD (S/P/Bld) [Vol rate/Area] The eGFR should be used for monitoring renal function only and not for medication dosing. [facility] GFR/1.73 sq M.predicted CKD-EPI (S/P/Bld) [Vol rate/Area] 122 >=60 mL/min/1.73 m2 [facility] Glucose [Mass/Vol] 71 mg/dL 65 - 99 mg/dL [facility] HCO3 [Moles/Vol] 28 mmol/L 21 - 32 mmol/L [facility] Potassium [Moles/Vol] 3.9 mmol/L 3.5 - 5.1 mmol/L [facility] Sodium [Moles/Vol] 143 mmol/L 135 - 145 mmol/L [facility] Urea nitrogen [Mass/Vol] 8 mg/dL 8 - 25 mg/dL [facility] Urea nitrogen/Creatinine [Mass ratio] 12.5 mg/mg [facility] CBC WITH AUTO DIFFERENTIALon 07-14-2020 Basophils (Bld) [#/Vol] 0.03 10*3/uL [facility] Basophils/100 WBC (Bld) 0.4 % [facility] Eosinophils (Bld) [#/Vol] 0.10 10*3/uL [facility] Eosinophils/100 WBC (Bld) 1.5 % [facility] Erythrocyte distribution width (RBC) [Entitic vol] 12.3 % 11.6 - 14.8 % [facility] Hematocrit (Bld) [Volume fraction] 39.2 % 36 - 46 % [facility] Hemoglobin (Bld) [Mass/Vol] 13.6 g/dL 12 - 16 g/dL [facility] Immature granulocytes (Bld) [#/Vol] 0.02 10*3/uL [facility] Immature granulocytes/100 WBC (Bld) 0.30 % [facility] Comment on above: The IG parameter is the percentage of metamyelocytes, myelocytes and promyelocytes. An immature granulocyte count (IG) of 1% or more suggests the possibility of infection, an IG count of 3% is very likely related to an infection. Lymphocytes (Bld) [#/Vol] 1.95 10*3/uL [facility] Lymphocytes/100 WBC (Bld) 29.2 % [facility] MCH (RBC) [Entitic mass] 30.4 pg 26 - 34 pg [facility] MCHC (RBC) [Mass/Vol] 34.7 g/dL 31 - 37 g/dL [facility] MCV (RBC) [Entitic vol] 87.7 fL 80 - 100 fL [facility] Monocytes (Bld) [#/Vol] 0.48 10*3/uL [facility] Monocytes/100 WBC (Bld) 7.2 % [facility] Neutrophils (Bld) [#/Vol] 4.09 10*3/uL [facility] Neutrophils/100 WBC (Bld) 61.4 % [facility] Nucleated RBC (Bld) [#/Vol] 0.00 10*3/uL [facility] Nucleated RBC/100 WBC (Bld) [Ratio] 0.0 % [facility] Platelet mean volume (Bld) [Entitic vol] 11.8 fL 9.4 - 12.4 fL [facility] Platelets (Bld) [#/Vol] 151 10*3/uL [facility] RBC (Bld) [#/Vol] 4.47 10*6/uL [facility] WBC (Bld) [#/Vol] 6.67 10*3/uL [facility] Hematologyon 07-14-2020 ABO and Rh group Nom (Bld) A Negative [facility] Otheron 07-14-2020 Extra Tube Hold for add-ons. [facility] Comment on above: Auto resulted. Interpretation and review of laboratory results Abnormal [facility] Type and Screenon 07-14-2020 Blood group antibody screen Ql Negative [facility] Specimen Expires 07/17/2020 23:59 EST [facility] URINALYSISon 07-14-2020 Bacteria Auto Ql (U) None Seen None Seen /hpf [facility] Bilirubin Ql (U) Negative Negative [facility] th Clarity Refractometry automated (U) Clear Clear [facility] Color (U) Yellow Colorless, Yellow [facility] Epithelial cells.squamous Auto (Urine sed) [#/Area] 5 High [facility] Glucose Auto test strip (U) [Mass/Vol] Negative Negative mg/dL [facility] Hemoglobin Auto test strip Ql (U) Moderate Abnormal Negative [facility] Ketones (U) [Mass/Vol] Negative Negative mg/dL [facility] Leukocyte esterase Auto test strip Ql (U) Trace Abnormal Negative [facility] Mucus Auto (Urine sed) [#/Area] Rare None Seen, Rare /lpf [facility] Nitrite Auto test strip Ql (U) Negative Negative [facility] pH (U) 7.0 [pH] [facility] Protein (U) [Mass/Vol] Negative Negative mg/dL [facility] RBC Auto (Urine sed) [#/Area] 2 [facility] Specific gravity (U) [Rel density] 1.011 [facility] Urobilinogen (U) [Mass/Vol] <2.0 <2.0 mg/dL [facility] WBC Auto (Urine sed) [#/Area] 2 [facility] Microscopic examination is performed on all urinalysis samples and only positive findings are reported. The test for blood on the chemical analytic portion of urinalysis may also be positive due to hemoglobinuria and myoglobinuria and if red blood cells are present they are quantified by microscopic examination. [facility] OB 1ST TRIMESTER WITH TRA [...] bleeding, spontaneous of is believed most likely. [facility] Workstation ID: [id number] Dictated by: SHAY FERNANDEZ on [facility] Jul 14, 2020 12:00:51 PM EDT Transcribed by: PREETI VILLALTA on [facility] Jul 14, 2020 12:07:08 PM EDT Finalized by: SHAY FERNANDEZ on [facility] Jul 14, 2020 12:57:[address] [facility] Comment on above: Order Comment: Injur [...] limits. No free peritoneal fluid is seen. [facility] 1. Normal study. 2. With a positive beta hCG, this is a of unknown location. Clinical correlation including serial beta hCG levels is needed differentiate the possibilities which include extremely early , spontaneous of recent , or ectopic gestation which is not directly visualized. With a history of bleeding, spontaneous of is believed most likely. [facility] Workstation ID: [id number] [facility] Interface, Rad In Fuji Speechq - 07/14/2020 1:00 PM EDT EXAMINATION: [...] bleeding, spontaneous of is believed most likely. [facility] Workstation ID: [id number] [facility] VAGINITIS DNA PROBESon 07-14 Olga sp DNA Probe+sig amp Ql (Vag fld) Negative Negative [facility] G. vaginalis DNA Probe+sig amp Ql (Vag fld) Negative Negative [facility] Interpretation and review of laboratory results Normal [facility] T. vaginalis DNA Probe+sig amp Ql (Vag fld) Negative Negative [facility] hCG, Blood, QUANTitativeon 0 07-14-2020 Beta HCG ( test) Ql (U) Males and non females: <5 mIU/mL Females during : 3-4 weeks 9-130 mIU/mL 4-5 weeks 75-2600 mIU/mL 5-6 weeks 850-20,800 mIU/mL 6-7 weeks 4000-100,200 mIU/mL 7-12 weeks 11,500-289,000 mIU/mL 12-16 weeks 18,300-137,000 mIU/mL 16-29 weeks 1,400-53,000 mIU/mL 29-41 weeks 940-60,000 mIU/mL [facility] HCG Qn 438 m[IU]/mL High [facility] Basic Metabolic Panelon 04-0 Anion gap [Moles/Vol] 7.0 mmol/L Normal 6.0-18.0 [facility] Comment on above: Performed By: #### 2 4321-2, 13471-3, 47919-4c1, 1988-03 ####[facility] [address] [place], [place] Calcium [Mass/Vol] 8.6 mg/dL Low 8.9-10.3 [facility] Comment on above: Performed By: #### 2 4321-2, 79649-5, 09052-3m3, 1988-03 ####[facility] [address] [place], [place] Chloride [Moles/Vol] 107 mmol/L Normal 98-107 [facility] Comment on above: Performed By: #### 2 4321-2, 59863-9, 79495-6m6, 1988-03 ####[facility] [address] [place], [place] CO2 [Moles/Vol] 24 mmol/L Normal 22-32 [facility] Comment on above: Performed By: #### 2 4321-2, 65077-2, 43663-1r2, 1988-03 ####[facility] [address], [place] Creatinine [Mass/Vol] 0.67 mg/dL Normal 0.60-1.30 [facility] Comment on above: Performed By: #### 2 4321-2, 92776-5, 45868-3q7, 1988-03 ####[facility] [address], [place] Glucose [Mass/Vol] 105 mg/dL High 70-99 [facility] Comment on above: Result Comment: U pdated ADA Reference Range A normal fasting glucose concentration is less than 100 mg/dL. An impaired fasting glucose concentration is 100-125 mg/dL. A provisional diagnosis of diabetes mellitus can be made when a fasting glucose concentration is greater than 125 mg/dL. Performed By: #### 2 4321-2, 24788-9, 09649-8o7, 1988-03 ####[place] [address], [place] Potassium [Moles/Vol] 4.1 mmol/L Normal 3.6-5.1 [facility] Comment on above: Performed By: #### 2 4321-2, 75152-4, 05367-4y4, 1988-03 ####[facility] [address], [place] Sodium [Moles/Vol] 138 mmol/L Normal 136-145 [facility] Comment on above: Performed By: #### 2 4321-2, 83176-0, 04699-3i5, 1988-03 ####[facility] [address], [place] Urea nitrogen (BldV) [Mass/Vol] 8 mg/dL Normal 8-20 [facility] Comment on above: Performed By: #### 2 4321-2, 36461-5, 59925-3v5, 1988-03 ####[place] [address], [place] C-Reactive Proteinon 019 CRP [Mass/Vol] 3.2 mg/dL High <1.0 [facility] Comment on above: Performed By: #### 2 4321-2, 26745-6, 80473-7t1, 1988-03 ####[facility] [address], [place] CBCon 03-01-2019 Erythrocyte distribution width (RBC) [Entitic vol] 14.3 % Normal 11.0-14.8 [facility] Comment on above: Performed By: #### 2 7-0 ####[facility] [address], [place] Hematocrit (Bld) [Volume fraction] 37.5 % Normal 35.0-45.0 [facility] Comment on above: Performed By: #### 2 7-0 ####[facility] [address], [place] Hemoglobin (Bld) [Mass/Vol] 12.5 g/dL Normal 12.0-16.0 [facility] Comment on above: Performed By: #### 2 7-0 ####[place] [address], [place] MCH (RBC) [Entitic mass] 28.1 Picograms Normal 27.0-34.0 [facility] Comment on above: Performed By: #### 2 7-0 ####[facility] [address], [place] MCHC (RBC) [Mass/Vol] 33.3 g/dL Normal 32.0-36.0 [facility] Comment on above: Performed By: #### 2 7-0 ####[facility] [address], [place] MCV (RBC) [Entitic vol] 84.6 fL Normal 80.0-97.0 [facility] Comment on above: Performed By: #### 2 7-0 ####[facility] [address], [place] Platelet mean volume (Bld) [Entitic vol] 10.5 fL Normal 6.2-12.1 [facility] Comment on above: Performed By: #### 2 7-0 ####[facility] [address], [place] Platelets (Bld) [#/Vol] 231 thou/mcL Normal 142-424 [facility] Comment on above: Performed By: #### 2 7-0 ####[facility] [address], [place] RBC (Bld) [#/Vol] 4.43 million/mcL Normal 3.80-5.10 M nt [facility] Comment on above: Performed By: #### 2 4317-0 ####[facility] [address], [place] WBC (Bld) [#/Vol] 12.7 thou/mcL High 4.6-10.2 [facility] Comment on above: Performed By: #### 2 4317-0 ####[facility] [address], [place] GFRaaon 03-01-2019 GFR/1.73 sq M predicted among blacks MDRD (S/P/Bld) [Vol rate/Area] mL/min/{1.73_m2} Normal [facility] Comment on above: Result Comment: The MDRD equation has not been validated for those over 70 years, women, patients with serious co-morbid conditions, or with extremes of body size, muscle mass of nutritional status. Performed By: #### 2 4321-2, 59584-8, 26399-1f6, 1988-03 ####[facility] [address], [place] GFRbbon 03-01-2019 GFR/1.73 sq M predicted among non-blacks MDRD (S/P/Bld) [Vol rate/Area] mL/min/{1.73_m2} Normal [facility] Comment on above: Performed By: #### 2 4321-2, 62818-7, 47332-8v7, 1988-03 ####[facility] [address], [place] Glucose POCT (Uploaded)on Glucose [Mass/Vol] 123 mg/dL High 70-99 [facility] Comment on above: Result Comment: Nadia tment ranges and critical values established by Patient Care Services. All follow-up actions were taken by Patient Care Services. Performed By: #### 2 430-8 ####[facility] Glucose [Mass/Vol] 95 mg/dL Normal 70-99 [facility] Comment on above: Result Comment: Nadia tment ranges and critical values established by Patient Care Services. All follow-up actions were taken by Patient Care Services. Performed By: #### 2 430-8 ####[facility] Glucose [Mass/Vol] 93 mg/dL Normal 70-99 [facility] Comment on above: Result Comment: Nadia tment ranges and critical values established by Patient Care Services. All follow-up actions were taken by Patient Care Services. Performed By: #### 2 430-8 ####[facility] Glucose [Mass/Vol] 87 mg/dL Normal 70-99 [facility] Comment on above: Result Comment: Nadia tment [...] SABRINA VELASQUEZ/Sex: 1990 Female Med Rec #: [id number] Physician: Marcellus Driscoll MD Financial #: [id number] Pt. Type: I Room/Bed: [address] [place] [address] Admit/Disch: 02/28/19 08:18:00 - Institution: [facility] [...] 15:45 Sherrie Rendon RN 03/01/19 07:03 Normal [facility] Patient Summaryon 03-01-2019 Patient Summary PATIENT DISCHARGE INSTRUCTIONS If you are having an emergency and are not able to reach your physician, CALL 911 or go to the nearest emergency room and take this document with you. [facility] 03/01/19 18:42 [address] [place]. [address] PATIENT INFORMATION Name: SABRINA VELASQUEZ Address: [address] [place] [id number] Age: 29 Years Phone: [phone] : 1990 12:00 MRN: [facility])-[id number] Sex: Female Race: White Ethnicity: Declined Admitted From: Clinic or [facility] Medical Service: Surgery Nurse Unit/Bed: ([place]) 7TWH 1L33-74 Admit Date: 02/28/2019 08:18 PCP: Omid Killian MD PHYSICIANS INVOLVED WITH CARE ------ Attending Physicians: Marcellus Driscoll MD - Surgery Admitting Physician: Marcellus Driscoll MD - Surgery Primary Care Physician:Omid Killian MD, - Consults: None found FOLLOW-UP APPOINTMENTS: Provider: Specialty: Address: Date: Marcellus Driscoll MD Surgery [address] [place] [address] [place] [phone] (1) 03/08/19 01:45 pm Comment: Please follow-up at your pre-scheduled appointment. Provider: Specialty: Address: Valeri: Omid Killian MD [address] [place] [address] (1) Follow-up as needed Provider: Specialty: Address: Date: Post-Op Nutrition Class [address] [facility] [address] 03/22/19 Comment: Please call [phone] for more information or to re-schedule. ALLERGIES: [...] doses are changed, or new medications (including ggiz-jww-jkdrzrr products) are added. Ask your doctor if [...] diet. Follow recommendations from your surgeon and cold strip feeder regarding you diet. Refer to nutrition information [...] doctor before taking any supplements, herbal or fric-cjx-dxlfskp medications. Call your physician if any questions [...] suicide hotline, anytime day or night, at 0-636-926-DRZD. Important information about accessing your health information through the [facility] patient portal If you initiated the self-registration process for [facility] during your stay, please check your personal email for an invitation to enroll in [facility] and complete the steps outlined in the email. If you would prefer to enroll while in the hospital, ask a member of your care team. We would be happy to assist you. If you have already enrolled in [facility], go to [email or web address] to login and access your health information. Thank you for choosing [facility]. PATIENT EDUCATION Gastric Bypass Surgery, Care After [...] of caffeine can cause dehydration. ?? A cold strip feeder may also give you specific instructions. ?? [...] 06/30/2005 Document Revised: 12/07/2015 Document Reviewed: 04/08/2011 [employer] Interactive Patient Education ??2016 [employer]. Gastric Bypass Discharge Instructions 1. Follow-up Care [...] dietitian for post-operative class at 2 weeks [phone] ? Call Bariatric Nurse Navigator [phone] with any further questions or concerns Call [...] provided above is for informational purposes only. [facility] does not promote, condone or endorse all the values expressed herein. The values or opinions they express with regard to the use of artificial contraception are not consistent with the teachings of the Roman Catholic Zoroastrian and the Ethical and Restoration Directives for [facility] Care Services. If any of these instructions are different from what your doctor tells you, follow your doctor's orders. If you smoke, you should quit. For more information, talk with your doctor or call [phone] ( ). PATIENT DISCHARGE INSTRUCTION Signature Page for: SABRINA VELASQUEZ Date/Time: 03/01/2019 18:42:02 A Clinician has explained the information on my discharge instructions and has provided me with a copy. My questions have been answered to my satisfaction. Patient Signature Date/Time Responsible Party Date/Time Relationship to Patient Clinician Signature Date/Time Normal [facility] Glucose POCT (Uploaded)on Glucose [Mass/Vol] 164 mg/dL High 70-99 [facility] Comment on above: Result Comment: Nadia tment ranges and critical values established by Patient Care Services. All follow-up actions were taken by Patient Care Services. Performed By: #### 2 430-8 ####[facility] Glucose [Mass/Vol] 141 mg/dL High 70-99 [facility] Comment on above: Result Comment: Nadia tment ranges and critical values established by Patient Care Services. All follow-up actions were taken by Patient Care Services. Performed By: #### 2 430-8 ####[facility] Glucose [Mass/Vol] 127 mg/dL High 70-99 [facility] Comment on above: Result Comment: Nadia tment ranges and critical values established by Patient Care Services. All follow-up actions were taken by Patient Care Services. Performed By: #### 2 430-8 ####[facility] Glucose [Mass/Vol] 140 mg/dL High 70-99 [facility] Comment on above: Result Comment: Nadia tment ranges and critical values established by Patient Care Services. All follow-up actions were taken by Patient Care Services. Performed By: #### 2 430-8 ####[facility]INT [facility] CARE OR Nursingon 02-28-2019 OR Nursing [facility] OR Nursing Record Summary Primary Physician: Marcellus Driscoll MD Finalized Date/Time: 02/28/19 14:10:30 Pt. Name: SABRINA VELASQUEZ/Sex: 1990 Female Med Rec #: [id number] Physician: Marcellus Driscoll MD Financial #: [id number] Pt. Type: I Room/Bed: / Admit/Disch: 02/28/19 08:18:00 - Institution: [facility] OR Case Times Entry 1 Patient Times Patient In Room 02/28/19 11:17:00 Patient Out Room 02/28/19 14:05:00 Surgical Times Start Time 02/28/19 11:53:00 Stop Time 02/28/19 13:58:00 Last Modified By: Disha Levine RN 02/28/19 14:09:18 [facility] OR Case Attendees Entry 1 Entry 2 Entry 3 Case Attendee Marcellus Driscoll MD, DO , Kenny Mckenzie CRNA Role Performed Primary Surgeon Anesthesiologist Nurse Street Contractor Time In 02/28/19 11:17:00 02/28/19 11:17:00 02/28/19 [...] Guaman RN , Litzy Garcia Role Performed assurance auditor RN First Scrub Time In 02/28/19 11:17:00 02/28/19 11:17:00 02/28/19 11:17:00 Time Out 02/28/19 14:05:00 02/28/19 14:05:00 02/28/19 14:05:00 Procedure Bypass Gastric Bypass Gastric Bypass Gastric Robot(N/A) Robot(N/A) Robot(N/A) Attendee Comment LUNCH [id number] LUNCH [id number] lunch [phone] Relief Reason Last Modified By: Abner RN , Disha Levine RN , Disha Levine RN , Disha Aiken 02/28/19 14:09:25 02/28/19 14:09:25 02/28/19 14:09:25 Entry 7 Entry 8 Entry 9 Case Attendee Adi MATRIN , Swetha Rao, Attendee Other Role Performed assurance auditor First Scrub It Application Support Analyst Time In 02/28/19 11:48:00 02/28/19 11:57:00 02/28/19 11:17:00 Time Out 02/28/19 12:40:00 02/28/19 12:53:00 02/28/19 14:05:00 Procedure Bypass Gastric Bypass Gastric Bypass Gastric Robot(N/A) Robot(N/A) Robot(N/A) Attendee Comment [place] [facility] - [facility] Relief Reason Last Modified By: Abner RN , Disha Levine RN , Disha Levine RN , Disha Aiken 02/28/19 14:09:25 02/28/19 14:09:25 02/28/19 14:09:25 [facility] OR General Case Comic Book Writer 1 OR CO W 11 ASA Class [...] Arrival? No 16FR TEMP SEN W/URINE METER [id number] Inserted By Oly Guaman RN DC'd at [...] OR Temperature Regulation Entry 1 Unit ID [id number] Site UPPER BODY Last Modified By: Gissell [...] By: Disha Levine RN 02/28/19 14:10 Normal [facility] PreOp Nursingon 02-28-2019 PreOp Nursing [facility] PreOp Nursing Record Summary Primary Physician: Marcellus Driscoll MD Finalized Date/Time: 02/28/19 12:08:12 Pt. Name: SABRINA VELASQUEZ./Sex: 1990 Female Med Rec #: [id number] Physician: Marcellus Driscoll MD Financial #: [id number] Pt. Type: I Room/Bed: / Admit/Disch: 02/28/19 08:18:00 - Institution: [facility] OR PreOp Case Times Entry 1 PreOp Case Times In Room Time 02/28/19 08:23:00 Out Room Time 02/28/19 11:15:00 Last Modified By: Gissell Joshi RN 02/28/19 12:08:08 [facility] OR PreOp Case Attendees Entry 1 Case Attendee Laurie Burns RN Role Performed RN Last Modified By: Laurie Burns RN 02/28/19 08:39:58 Finalized By: Gissell Joshi RN Document Signatures Signed By: Gissell Joshi RN 02/28/19 12:08 Normal [facility] CBC with Differentialon 01-29 Basophils (Bld) [#/Vol] 0.00 thou/mcL Normal 0.00-0.20 [facility] Comment on above: Performed By: #### 5 7021-8 #### [address] Basophils/100 WBC (Bld) 0.4 % Normal 0.0-2.0 [facility] Comment on above: Performed By: #### 5 7021-8 #### [address] Eosinophils (Bld) [#/Vol] 0.10 thou/mcL Normal 0.00-0.70 [facility] Comment on above: Performed By: #### 5 7021-8 #### [address] Eosinophils/100 WBC (Bld) 1.5 % Normal 0.0-7.0 [facility] Comment on above: Performed By: #### 5 7021-8 #### [address] Erythrocyte distribution width (RBC) [Entitic vol] 14.8 % Normal 11.0-14.8 [facility] Comment on above: Performed By: #### 5 7021-8 #### [address] Hematocrit (Bld) [Volume fraction] 41.4 % Normal 35.0-45.0 [facility] Comment on above: Performed By: #### 5 7021-8 #### [address] Hemoglobin (Bld) [Mass/Vol] 13.7 g/dL Normal 12.0-16.0 [facility] Comment on above: Performed By: #### 70-8 #### [address] Lymphocytes (Bld) [#/Vol] 1.80 thou/mcL Normal 1.00-4.80 [facility] Comment on above: Performed By: #### 70-8 #### [address] Lymphocytes/100 WBC (Bld) 21.5 % Low 22.0-44.0 [facility] Comment on above: Performed By: #### 70-8 #### [address] MCH (RBC) [Entitic mass] 28.6 Picograms Normal 27.0-34.0 [facility] Comment on above: Performed By: #### 7021-8 #### [address] MCHC (RBC) [Mass/Vol] 33.2 g/dL Normal 32.0-36.0 [facility] Comment on above: Performed By: #### 7021-8 #### [address] MCV (RBC) [Entitic vol] 86.0 fL Normal 80.0-97.0 [facility] Comment on above: Performed By: #### 7021-8 #### [address] Monocytes (Bld) [#/Vol] 0.60 thou/mcL Normal 0.00-0.90 [facility] Comment on above: Performed By: #### 7021-8 #### [address] Monocytes/100 WBC (Bld) 7.5 % Normal 0.0-12.0 [facility] Comment on above: Performed By: #### 5 7021-8 #### [address] [place], [place] Neutrophils (Bld) [#/Vol] 5.90 thou/mcL Normal 1.80-7.70 [facility] Comment on above: Performed By: #### 5 7021-8 #### [address] [place], [place] Neutrophils/100 WBC (Bld) 69.1 % Normal 40.0-70.0 [facility] Comment on above: Performed By: #### 5 7021-8 #### [address] [place], [place] Platelet mean volume (Bld) [Entitic vol] 11.3 fL Normal 6.2-12.1 [facility] Comment on above: Performed By: #### 5 7021-8 #### [address] [address] Platelets (Bld) [#/Vol] 194 thou/mcL Normal 142-424 [facility] Comment on above: Performed By: #### 5 7021-8 #### [address] [place], [place] RBC (Bld) [#/Vol] 4.81 million/mcL Normal 3.80-5.10 [facility] Comment on above: Performed By: #### 5 7021-8 #### [address] [place], [place] WBC (Bld) [#/Vol] 8.5 thou/mcL Normal 4.6-10.2 [facility] Comment on above: Performed By: #### 5 7021-8 #### [place] [address] Comprehensive Metabolic Pane satnam 2019 Albumin [Mass/Vol] 3.3 g/dL Low 3.5-4.8 [facility] Comment on above: Performed By: #### 2 4323-8, 92517-3h4, 69547-1 ####[facility] [address], [place] ALP [Catalytic activity/Vol] 72 Units/L Normal 32-91 [facility] Comment on above: Performed By: #### 2 4323-8, 54635-8s2, 94675-2 ####[facility] [address], [place] ALT [Catalytic activity/Vol] 18 Units/L Normal 14-63 [facility] Comment on above: Performed By: #### 2 4323-8, 68437-9a1, 06948-0 ####[facility] [address], [place] Anion gap [Moles/Vol] 10.0 mmol/L Normal 6.0-18.0 [facility] Comment on above: Performed By: #### 2 4323-8, 37546-7d7, 02158-8 ####[facility] [address], [place] AST [Catalytic activity/Vol] 17 Units/L Normal 15-41 [facility] Comment on above: Performed By: #### 2 4323-8, 61201-1j0, 77313-6 ####[facility] [address], [place] Bilirubin [Mass/Vol] 0.7 mg/dL Normal 0.3-1.2 [facility] Comment on above: Performed By: #### 2 4323-8, 94919-3w9, 54477-6 ####[facility] [address], [place] Calcium [Mass/Vol] 8.5 mg/dL Low 8.9-10.3 [facility] Comment on above: Performed By: #### 2 4323-8, 30424-1g0, 32152-7 ####[facility] [address], [place] Chloride [Moles/Vol] 104 mmol/L Normal 98-107 [facility] Comment on above: Performed By: #### 2 4323-8, 29753-2y7, 36788-4 ####[facility] [address], [place] CO2 [Moles/Vol] 22 mmol/L Normal 22-32 [facility] Comment on above: Performed By: #### 2 4323-8, 30149-3r4, 11569-3 ####[facility] [address], [place] Creatinine [Mass/Vol] 0.79 mg/dL Normal 0.60-1.30 [facility] Comment on above: Performed By: #### 2 4323-8, 88876-8s2, 92426-5 ####[facility] [address], [place] Glucose [Mass/Vol] 93 mg/dL Normal 70-99 [facility] Comment on above: Result Comment: U pdated ADA Reference Range A normal fasting glucose concentration is less than 100 mg/dL. An impaired fasting glucose concentration is 100-125 mg/dL. A provisional diagnosis of diabetes mellitus can be made when a fasting glucose concentration is greater than 125 mg/dL. Performed By: #### 2 4323-8, 98008-6z2, 04580-3 ####[facility] [address], [place] Potassium [Moles/Vol] 4.1 mmol/L Normal 3.6-5.1 [facility] Comment on above: Performed By: #### 2 4323-8, 77679-4c2, 13260-3 ####[facility] [address], [place] Protein [Mass/Vol] 6.0 g/dL Low 6.1-7.9 [facility] Comment on above: Performed By: #### 2 4323-8, 08270-8u8, 53340-2 ####[facility] [address], [place] Sodium [Moles/Vol] 136 mmol/L Normal 136-145 [facility] Comment on above: Performed By: #### 2 4323-8, 29333-0w0, 92360-5 ####[facility] [address], [place] Urea nitrogen (BldV) [Mass/Vol] 13 mg/dL Normal 8-20 [facility] Comment on above: Performed By: #### 2 4323-8, 94767-8d4, 23078-2 ####[facility] [address] [place] GFRaaon 2019 GFR/1.73 sq M predicted among blacks MDRD (S/P/Bld) [Vol rate/Area] mL/min/{1.73_m2} Normal [facility] Comment on above: Result Comment: The MDRD equation has not been validated for those over 70 years, women, patients with serious co-morbid conditions, or with extremes of body size, muscle mass of nutritional status. Performed By: #### 2 4323-8, 95103-0n1, 92396-8 ####[address] GFRbbon 2019 GFR/1.73 sq M predicted among non-blacks MDRD (S/P/Bld) [Vol rate/Area] mL/min/{1.73_m2} Normal [facility] Comment on above: Performed By: #### 2 4323-8, 11205-4w3, 39903-0 ####[address] [place], [place] Glycohemoglobin (HGB A1C) Emanuel haroharman 2019 HbA1c (Bld) [Mass fraction] 5.0 % tl hgb Normal <5.6 [facility] Comment on above: Result Comment: U pdated ADA Reference Range HbA1c values of 5.7-6.4 percent indicate an increased risk for developing diabetes mellitus. HbA1c values greater than or equal to 6.5 percent are diagnostic of diabetes mellitus. For diagnosis of diabetes in individuals without unequivocal hyperglycemia, results should be confirmed by repeat testing. Performed By: #### 4 549-2 ####[facility], [address] [place] [address]. Partial Thromboplastin Time (aPTT)on 2019 aPTT Coag (PPP) [Time] 29.6 Sec Normal 23.6-35.3 [facility] Comment on above: Performed By: #### 3 173-2, 5902-2 ####[facility], [address] [place] [address]. Prothrombin Timeon 9 INR Coag (Bld) [Relative time] 1.00 {INR} Normal [facility] Comment on above: Result Comment: The recommended therapeutic INR range for most cardiac indications is 2.0-3.0. For high intensity therapy(ie.mechanical heart valves), the recommended range is 2.5-3.5. Performed By: #### 3 173-2, 5902-2 ####[facility], [address] [place] [address]. PT Coag (PPP) [Time] 11.5 Sec Normal 9.3-12.4 [facility] Comment on above: Performed By: #### 3 173-2, 5902-2 ####[facility], [address] [place] [address]. XR Chest 2 Viewson 9 XR Chest 2 views Two-view chest exam Indication: pre-op. Cough for the past week. COMPARISON: E 66.01 FINDINGS: The lungs are clear and the costophrenic angles are sharp. The cardiomediastinal silhouette and bones are normal. IMPRESSION: Normal chest. [facility] thanks you for the opportunity to care for your patient. Workstation ID: [id number] FINAL REPORT Dictated By: Jean Hull MD 2019 08:47 Assigned Physician: Jean Hull MD Reviewed and Electronically Signed By: Jean Hull MD 2019 08:48 Transcribed by: [facility] 2019 08:47 Technologist: SHAKA Carranza [facility] OR Nursingon 09-17-2018 OR Nursing [facility] OR Nursing Record Summary Primary Physician: Tristan Dickey MD Finalized Date/Time: 09/17/18 07:39:53 Pt. Name: SABRINA VELASQUEZ/Sex: 1990 Female Med Rec #: [id number] Physician: Financial #: [id number] Pt. Type: I Room/Bed: / Admit/Disch: 09/16/18 13:46:00 - 09/16/18 15:20:00 Institution: [facility] Case Times Entry 1 Patient Times Patient In Room 09/16/18 14:20:00 Patient Out Room 09/16/18 14:30:00 Anesthesia Times Anes Start 09/16/18 14:18:00 Anes Stop 09/16/18 14:33:00 Surgical Times Start Time 09/16/18 14:26:00 Stop Time 09/16/18 14:28:00 Last Modified By: Julieta RN Sherrie 09/17/18 07:37:51 General Comments: ANESTHESIA TIME START AND STOP ADDED PER ANESTHESIA PAPER RECORD KEILA MARTIN [facility] Case Attendees Entry 1 Entry 2 Entry 3 Case Attendee Keli URBINA , Tristan Delvalle CONSUMER LOAN OFFICER , Charbel Wolf DO Role Performed Primary Surgeon Nurse Street Contractor Anesthesiologist Time In 09/16/18 14:20:00 09/16/18 14:20:00 09/16/18 14:20:00 Time Out 09/16/18 14:30:00 09/16/18 14:30:00 09/16/18 14:30:00 Procedure Egd_(N/A) Egd_(N/A) Egd_(N/A) Attendee Comment Relief Reason Last Modified By: Breanna RN , Afia Carlos RN , Afia Carlos RN , Afia 09/16/18 14:31:12 09/16/18 14:31:12 09/16/18 14:31:12 Entry 4 Entry 5 Case Attendee Breanna RN , Afia Bernabe RN Rosalio Role Performed assurance auditor Personal Lines Sales Rep Time In 09/16/18 14:20:00 09/16/18 14:20:00 Time Out 09/16/18 14:30:00 09/16/18 14:30:00 Procedure Egd_(N/A) Egd_(N/A) Attendee Comment Relief Reason Last Modified By: Breanna RN , Afia Carlos RN , Afia 09/16/18 14:31:12 09/16/18 14:31:12 [facility] General Case Comic Book Writer 1 OR CO W EN 02 ASA [...] SCANNED ANES. PAPER RECORD KEILA MARTIN [facility] Surgical Procedures Entry 1 Procedure Egd_ Primary Procedure Yes Modifiers N/A Procedure Wound None Class Primary Surgeon Keli URBINA , Tristan Surgical Service General Surgery Anesthesia Type MAC Procedure Performed (EGD) ESOPHAGOGASTRODUODENO SCO PY Start 09/16/18 14:26:00 Stop 09/16/18 14:28:00 Last Modified By: Sherrie Rendon RN 09/17/18 07:39:25 General Comments: ANESTHESIA TYPE CHANGED PER PAPER ANESTHESIA RECORD KEILA AARON [facility] Fire Risk Assessment Entry 1 Alcohol [...] 09/17/18 07:39 Sherrie Rendon RN 09/17/18 07:39 [facility] Post PACU Nursingon 09-17-20 18 Post PACU Nursing [facility] Endo PACU II Nursing Record Summary Primary Physician: Tristan Dickey MD Finalized Date/Time: 09/17/18 07:40:27 Pt. Name: SABRINA VELASQUEZ/Sex: 1990 Female Med Rec #: [id number] Physician: Financial #: [id number] Pt. Type: I Room/Bed: / Admit/Disch: 09/16/18 13:46:00 - 09/16/18 15:20:00 Institution: [facility]o PACU II Case Times Entry 1 In PACU II 09/16/18 14:34:00 Ready for PACU II 09/16/18 14:49:00 Discharge Discharge from PACU 09/16/18 15:20:00 II Last Modified By: Rocio Turcios RN 09/16/18 15:26:17 [facility] PACU II Case Attendees Entry 1 Case Attendee Rocio Turcios RN Role Performed RN Last Modified By: Rocio Turcios RN 09/16/18 15:04:00 Finalized By: Sherrie Rendon RN Document Signatures Signed By: Sherrie Rendno RN 09/17/18 07:35 Sherrie Rendon RN 09/17/18 07:40 Normal [facility] PreOp Nursingon 09-17-2018 PreOp Nursing [facility]o PreOp Nursing Record Summary Primary Physician: Tristan Dickey MD Finalized Date/Time: 09/17/18 07:36:42 Pt. Name: SABRINA VELASQUEZ/Sex: 1990 Female Med Rec #: [id number] Physician: Financial #: [id number] Pt. Type: I Room/Bed: / Admit/Disch: 09/16/18 [...] Entry 1 Case Attendee Altagracia Morales RN RN Last Modified By: Altagracia Morales RN 09/16/18 14:00:58 Finalized By: Sherrie Rendon RN Document Signatures Signed By: Sherrie Rendon RN 09/17/18 07:36 Sherrie Rendon RN 09/17/18 07:36 Normal [facility] Patient Summaryon 09-16-2018 Patient Summary PATIENT DISCHARGE INSTRUCTIONS If you are having an emergency and are not able to reach your physician, CALL 911 or go to the nearest emergency room and take this document with you. [facility] 09/16/18 14:45 [address] [place]. [address] PATIENT INFORMATION Name: SABRINA VELASQUEZ Address: [address] [place] [address] Age: 28 Years Phone: [phone] : 1990 12:00 MRN: [id number] Sex: Female Race: White Ethnicity: Declined Admitted From: Clinic or [facility] Medical Service: Surgery Nurse Unit/Bed: ([place]) W-END N/A Admit Date: 09/16/2018 13:46 PCP: Omid Killian MD PHYSICIANS INVOLVED WITH CARE ------ Attending Physicians: Tristan Dickey MD - Surgery Admitting Physician: None found Primary Care Physician:Omid Killian MD, - Consults: None found ALLERGIES: No Known Allergies MEASUREMENTS: Last Charted: Weight: Admission 175.4 kg /386 lbs 11 oz ( 10/18/18 14:01:00 ) MEDICATIONS For: SABRINA VELASQUEZ This [...] doses are changed, or new medications (including fsjd-bnt-nketcur products) are added. Ask your doctor if [...] suicide hotline, anytime day or night, at 9-856-082-DQBF. Important information about accessing your health information through the [facility] patient portal If you initiated the self-registration process for [facility] during your stay, please check your personal email for an invitation to enroll in [facility] and complete the steps outlined in the email. If you would prefer to enroll while in the hospital, ask a member of your care team. We would be happy to assist you. If you have already enrolled in [facility], go to [email or web address] to login and access your health information. Thank you for choosing [facility] PATIENT EDUCATION Esophagogastroduodeno scopy, Care After Refer [...] 11/02/2013 Document Revised: 12/07/2015 Document Reviewed: 11/02/2013 [employer] Patient Education ?2016 [employer] VIRUSES OR BACTERIA: WHAT'S GOT YOU [...] Relationship to Patient Clinician Signature Date/Time Normal [facility] ECG 12 leadon 06-14-2018 Atrial Rate Invalid Interpretation Code [facility] P [place] Invalid Interpretation Code [facility] P-R Interval Invalid Interpretation Code [facility] Q-T Interval Invalid Interpretation Code [facility] Q-T Interval (corrected) Invalid Interpretation Code [facility] QRS Duration Invalid Interpretation Code [facility] QTC Calculation (Bezet) Invalid Interpretation Code [facility] R [place] Invalid Interpretation Code [facility] T [place] Invalid Interpretation Code [facility] Ventricular Rate Invalid Interpretation Code [facility] Social History Date Type Detail Facility Start: 07-14-2020 Tobacco smoking status VTIS Current some day smoker [facility] Start: 07-14-2020 Alcohol intake 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) [facility] Start: 05-17-2018 End: 06-14-2018 Tobacco smoking status VTIS Never smoker [facility] Sex Assigned At Not on file [facility] Exposure to SARS-CoV -2 (event) Not sure [facility] Vital Signs Date Time Vital Sign Value Performing Clinician Abbey ruiz 07-14-2020 13:00-0400 BP Di[facility] 78 [facility]Hg[facility] 07-14-2020 13:00-0400 BP Systolic 123 mm[Hg] [facility] 07-14-2020 13:00-0400 Pulse (Heart Rate) 55 /min [place] [facility] 07-14-2020 13:00-0400 Pulse Oximetry 100 % [place] [facility] 07-14-2020 10:06-0400 Body Temperature 98.8 [degF] [place] [facility] 07-14-2020 10:04-0400 BMI (Body Mass Index) 43.58 kg/m2 [place] [facility] 07-14-2020 10:04-0400 Body weight 122.47 kg [place] [facility] 07-14-2020 10:04-0400 Height 167.6 cm [place] [facility] 07-14-2020 10:04-0400 Respiratory Rate 16 /min [place] [facility] 06-14-2018 09:16-0400 BMI (Body Mass Index) 63.24 kg/m2 [facility] 06-14-2018 09:16-0400 BP Diastolic 84 mm[Hg] [facility] 06-14-2018 09:16-0400 BP Systolic 128 mm[Hg] [facility] 06-14-2018 09:16-0400 Height 167.6 cm [facility] 06-14-2018 09:16-0400 Pulse (Heart Rate) 64 /min [facility] 06-14-2018 09:16-0400 Pulse Oximetry 98 % [facility] 06-14-2018 09:16-0400 Weight 177.72 kg [facility] Assessments Note Patient: SABRINA VELASQUEZ MRN : ([id number] Age: 29 years Sex: Female : 1990 [...] for home later today Logan Driscoll MD [phone] SURGERY PROGRESS NOTE SUBJECTIVE: Patient denies abd [...] FoundDocuments on File Type Date Recorded Patient Edger Tailer Expl anation Advance Directives and Tereza Viramontes 07/14/2020 11:09 AM History of Present Illness * Lauren Hagan MA - 12/13/2018 4:27 PM EST Warning of termination sent due to no shows on 07/19 and 12/13 in this encounter Hospital Course Note CLINICAL SUMMARY Please take this summary document to your follow up appointments. Roney Zhong [place] 09/16/18 14:45 [address] [place]. [address] PATIENT INFORMATION Name: SABRINA VELASQUEZ Address: [address] [place], [place] [address] Age: 28 Years Phone: [phone] : 1990 12:00 MRN: ([id number] Sex: Female Race: White Ethnicity: Declined Admitted [...] summary document to your follow up appointments. [facility] 03/01/19 18:42 [address] [place]. [address] PATIENT INFORMATION Name: VELASQUEZ SABRINA Hensley Address: [address] [place] [id number] Age: 29 Years Phone: [phone] : 1990 12:00 MRN: ([id number] Sex: Female Race: White Ethnicity: Declined Admitted From: Clinic or Phys Ofc Medical Service: Surgery Nurse Unit/Bed: (CO) 7TWH 5H73-33 Admit Date: 02/28/2019 08:18 PCP: Omid Killian MD PHYSICIANS INVOLVED WITH CARE Attending Physicians: Marcellus Driscoll MD - Surgery Admitting Physician: Marcellus Driscoll MD - Surgery Primary Care Physician:Omid Killian MD, - Consults: None found Problems Active Morbid (severe) obesity due to excess calories Obesity IBS (irritable bowel syndrome) GERD (gastroesophageal reflux (more content not included)... Note Patient: SABRINA VELASQUEZ [id number] Age: 29 years Sex: Female : 1990 [...] GERD, IBS, and heart murmur presented to [facility] on 02/28/2019 for an elective robotically assisted laparoscopic [place]-en-Y gastric bypass with by Purnima albarran an had an extensive preoperative workup. Patient tolerated the procedure well and was transferred to PACU in stable condition where she had an uneventful recovery. His then tra (more content not included)... Note Patient: SABRINA VELASQUEZ MRN : ([facility])-[id number] Age: 29 years Sex: Female : 1990 [...] for home later today Logan Driscoll MD [phone] SURGERY PROGRESS NOTE SUBJECTIVE: Patient denies abd [...] (02/28 12:00 (more content not included)... Note [facility] Patient Name: Sabrina Velasquez Procedure Date: 09/16/2018 1:40 PM Date of : 1990 Age: 28 Gender: Female Procedure: Upper GI endoscopy Indications: Suspected esophageal reflux, Preoperative assessment for bariatric surgery to treat morbid obesity Providers: TRISTAN DICKEY MD , KASIE DELVALLE CRNA, CHARBLE STEWART MD Referring MD: OMID KILLIAN MD Requesting Provider: Medicines: Monitored Anesthesia Care Complications: No immediate complications. Procedure: Pre-Anesthesia Assessment: - Prior to the procedure, a History and Physical was performed, and patient medications, allergies and sensitivities were reviewed. The patient's tolerance of previous anesthesia was reviewe (more content not included)... Note Patient: SABRINA VELASQUEZ MRN: [facility])-[id number] Age: 28 years Sex: Female : 1990 Associated Diagnoses: None Author: Kaise Delvalle CRNA Supervising Physician Comments Documentation By: Certified Registered Nurse Street Contractor. Subjective Subjective: Patient participated in the evaluation: [...] concluded. Note Patient: SABRINA VELASQUEZ MRN : [facility])-[id number] Age: 29 years Sex: Female : 1990 [...] not included)... Procedure Findings Note [facility] Patient Name: Sabrina Velasquez Procedure Date: [...] not included)... Note Patient: SABRINA VELASQUEZ MRN: [facility])-[id number] Age: 28 years Sex: Female : 1990 Associated Diagnoses: None Author: Kasie Delvalle CRNA Supervising Physician Comments Documentation By: Certified Registered Nurse Street Contractor. Subjective Subjective: Patient participated in the evaluation: [...] concluded. Note Patient: SABRINA VELASQUEZ MRN : [facility])-[id number] Age: 29 years Sex: Female : 1990 [...] sent through Care Everywhere. * Miscarriage: Threatened (Vietnamese) documented in this encounter Additional Source Comments [...] nondistended Alicia Hudson MD ED Attending Physician [facility] Emergency Department documented in this encounter INFORMATION SOURCE (unrecogn ized section and content) DATE CREATED AUTHOR 06/15/2018 [facility] DATE CREATED AUTHOR AUTHOR'S ORGANIZ ATION 08/09/2019 [facility] DATE CREATED AUTHOR AUTHOR'S ORGANIZ ATION 12/27/2020 [facility] DATE CREATED AUTHOR AUTHOR'S ORGANIZ ATION 06/02/2024 [facility] EPIC Reason for Visit (unrecogniz ed section and content) Reason Comments Vaginal Bleeding Chris Pate PA-C - 07/14/2020 10:43 AM JANATDorinda Parikh RN - 07/14/2020 10:07 AM JANATDorinda Parikh RN - 07/14/2020 10:04 AM EDT ED Notes (unrecognized secti on and content) ED PROVIDER NOTE [facility] EMERGENCY DEPARTMENT NAME: Sabrina Velasquez AGE: 30 y.o. : 1990 VISIT DATE: 07/14/2020 CSN: [id number] PCP: Omid Killian MD Clinical Impression: 1. Threatened ED Disposition ED Disposition Condition Comment Discharge Stable Sabrina Velasquez discharged to home/self care in stable condition. Follow-up Information 1. Roni Clemens MD. Specialty: Obstetrics/Gynecology Why: For recheck of today's symptoms [address] [facility] Emergency Department. Specialty: Emergency Medicine Why: As needed, If symptoms worsen [address] [facility] [address] Contact information for after-discharge care Follow-up information [...] this point clinically. Patient has appointment with SPECIAL EDUCATION SUPERVISOR on Thursday. Considered implantation bleeding, threatened , [...] reports she is scheduled to see her SPECIAL EDUCATION SUPERVISOR Dr. Clemens next week. Patient denies any [...] nursing note reviewed. Exam conducted with a warp starter present. Constitutional: Appearance: Normal appearance. HENT: Head: [...] Colorless, Yellow Clarity, Urine Clear Clear Specific [place] 1.011 1.005 - 1.025 pH, Urine 7.0 [...] bleeding, spontaneous of is believed most likely. [facility] Workstation ID: [id number] Procedures The patient has [...] pre-hypertension or hypertension. . Chris Pate PA-C [facility] Emergency Department Chris Pate PA-C 07/14/20 [...] BE BASED ON THE PRIMARY CLINICAL RECORDS. [facility]. provides no warranty or guarantee of the accuracy or completeness of information in this document.
--- NOTE | 2024-06-04 08:59 | US_ITS ---
[place] [id number] Patient Name: SABRINA VELASQUEZ MRN: [id number] date: 1990 Sex: F Assigned Patient Location: US Current Patient Location: Accession/Order Number: [id number] Exam Date: 06/04/2024 09:00 Report Date: 06/06/2024 06:30 At the request of: LIA BENAVIDES Procedure: US OB BPP w non-stress EXAMINATION: US OB BPP w non-stress HISTORY: Third trimester COMPARISON: No relevant comparison available. TECHNIQUE: Ultrasound biophysical profile was performed in the radiology department. FINDINGS: BREATHING MOVEMENTS: 2 GROSS BODY MOVEMENTS: 2 TONE: 2 QUALITATIVE AMNIOTIC FLUID VOLUME: 2 PRESENTATION: CEPHALIC HEART RATE: 146.74 bpm AMNIOTIC FLUID VOLUME: 23.6 cm GESTATIONAL AGE: 36 weeks 1 day US/US OB BPP w non-stress IMPRESSION: Total biophysical profile score: 8 Electronically authenticated by: SHAY BEY Date: 06/06/2024 06:30
[2024-06-04 09:37] VITALS: BP 114/57; PULSE 59
== END 2024-06-04 10:13 | disposition home or self-care (01) ==
LOC: US 05:52 → FBC 09:25
PROVIDERS: Visit Provider Obstetrics & Gynecology
DX: Z34.93 Encounter for supervision of normal pregnancy, unspecified, third trimester (principal); Z3A.36 36 weeks gestation of pregnancy
CPT/HCPCS: 76818

== ENCOUNTER 2024-06-10 07:05 | Outpatient (OUT) | payer OTHER, SELFPAY ==
--- NOTE | 2024-06-10 08:49 | US_ITS ---
[address] [address] Patient Name: SABRINA VELASQUEZ MRN: [id number] date: 1990 Sex: F Assigned Patient Location: [facility] Current Patient Location: [facility] Accession/Order Number: [id number] Exam Date: 06/10/2024 08:50 Report Date: 06/10/2024 09:32 At the request of: LIA BENAVIDES Procedure: US OB BPP w non-stress EXAMINATION: US OB BPP w non-stress HISTORY: Third trimester Z34.93 COMPARISON: No relevant comparison available. TECHNIQUE: Ultrasound biophysical profile was performed in the radiology department. non-reactive stress testing was performed by nursing staff in the birthing center. FINDINGS: BREATHING MOVEMENTS: 2 GROSS BODY MOVEMENTS: 2 TONE: 2 QUALITATIVE AMNIOTIC FLUID VOLUME: 2 PRESENTATION: CEPHALIC HEART RATE: 136.36 bpm AMNIOTIC FLUID VOLUME: 26.9 GESTATIONAL AGE: 37 weeks 0 days US/US OB BPP w non-stress IMPRESSION: Total biophysical profile score: 8 Electronically authenticated by: SHAY BEY Date: 06/10/2024 09:32
[2024-06-10 09:32] VITALS: BP 114/67; PULSE 51
== END 2024-06-10 10:05 | disposition home or self-care (01) ==
LOC: US 07:05 → FBC 08:44
PROVIDERS: Visit Provider Obstetrics & Gynecology
DX: Z34.93 Encounter for supervision of normal pregnancy, unspecified, third trimester (principal)
CPT/HCPCS: 76818

== ENCOUNTER 2024-06-17 07:09 | Outpatient (OUT) | payer OTHER, SELFPAY ==
--- OUTSIDE RECORDS SUMMARY | 2024-06-17 07:12 | XMS_ITS | CCD ---
Author Organization [facility] Inform ion Partnership [facility] Care Team Providers Care Sports Manager Name Role Phone Killian, Omid Sandadi [...] LIA Attending Unavailable MAKAYLA, LIA Attending Unavailable MAKAYLA, LIA Attending Unavailable MAKAYLA, LIA Attending Unavailable Medications [...] Test Name Value Interpretation Reference Range Facility [facility] VERIFICATIONon 020 ABO and Rh group Nom (Bld) A Negative [facility] ABO and Rh group Nom (Bld) ABO/Rh Verification [facility] BMPon 07-14-2020 Anion gap [Moles/Vol] 6 mmol/L Low 10 - 20 mmol/L [facility] Calcium [Mass/Vol] 9.0 mg/dL 8.4 - 10. 2 mg/dL [facility] Chloride [Moles/Vol] 113 mmol/L High 98 - 108 mmol/L [facility] Creatinine [Mass/Vol] 0.64 mg/dL 0.40 - 1.10 [facility] GFR/1.73 sq M predicted among non-blacks MDRD (S/P/Bld) [Vol rate/Area] The eGFR should be used for monitoring renal function only and not for medication dosing. [facility] GFR/1.73 sq M.predicted CKD-EPI (S/P/Bld) [Vol rate/Area] 122 >=60 mL/min/1.73 m2 [facility] Glucose [Mass/Vol] 71 mg/dL 65 - 99 mg/dL [facility] HCO3 [Moles/Vol] 28 mmol/L 21 - 32 mmol/L [facility] Potassium [Moles/Vol] 3.9 mmol/L 3.5 - 5.1 mmol/L [facility] Sodium [Moles/Vol] 143 mmol/L 135 - 145 mmol/L [facility] Urea nitrogen [Mass/Vol] 8 mg/dL 8 - 25 mg/dL [facility] Urea nitrogen/Creatinine [Mass ratio] 12.5 mg/mg [facility] CBC WITH AUTO DIFFERENTIALon 07-14-2020 Basophils (Bld) [#/Vol] 0.03 10*3/uL [facility] Basophils/100 WBC (Bld) 0.4 % [facility] Eosinophils (Bld) [#/Vol] 0.10 10*3/uL [facility] Eosinophils/100 WBC (Bld) 1.5 % [facility] Erythrocyte distribution width (RBC) [Entitic vol] 12.3 % 11.6 - 14.8 % [facility] Hematocrit (Bld) [Volume fraction] 39.2 % 36 - 46 % [facility] Hemoglobin (Bld) [Mass/Vol] 13.6 g/dL 12 - 16 g/dL [facility] Immature granulocytes (Bld) [#/Vol] 0.02 10*3/uL [facility] Immature granulocytes/100 WBC (Bld) 0.30 % [facility] Comment on above: The IG parameter is the percentage of metamyelocytes, myelocytes and promyelocytes. An immature granulocyte count (IG) of 1% or more suggests the possibility of infection, an IG count of 3% is very likely related to an infection. Lymphocytes (Bld) [#/Vol] 1.95 10*3/uL [facility] Lymphocytes/100 WBC (Bld) 29.2 % [facility] MCH (RBC) [Entitic mass] 30.4 pg 26 - 34 pg [facility] MCHC (RBC) [Mass/Vol] 34.7 g/dL 31 - 37 g/dL [facility] MCV (RBC) [Entitic vol] 87.7 fL 80 - 100 fL [facility] Monocytes (Bld) [#/Vol] 0.48 10*3/uL [facility] Monocytes/100 WBC (Bld) 7.2 % [facility] Neutrophils (Bld) [#/Vol] 4.09 10*3/uL [facility] Neutrophils/100 WBC (Bld) 61.4 % [facility] Nucleated RBC (Bld) [#/Vol] 0.00 10*3/uL [facility] Nucleated RBC/100 WBC (Bld) [Ratio] 0.0 % [facility] Platelet mean volume (Bld) [Entitic vol] 11.8 fL 9.4 - 12.4 fL [facility] Platelets (Bld) [#/Vol] 151 10*3/uL [facility] RBC (Bld) [#/Vol] 4.47 10*6/uL [facility] WBC (Bld) [#/Vol] 6.67 10*3/uL [facility] Otheron 07-14-2020 Extra Tube Hold for add-ons. [facility] Comment on above: Auto resulted. Interpretation and review of laboratory results Abnormal [facility] Type and Screenon 07-14-2020 ABO and Rh group Nom (Bld) A Negative [facility] Blood group antibody screen Ql Negative [facility] Specimen Expires 07/17/2020 23:59 EST [facility] URINALYSISon 07-14-2020 Bacteria Auto Ql (U) None Seen None Seen /hpf [facility] Bilirubin Ql (U) Negative Negative [facility] th Clarity Refractometry automated (U) Clear Clear [facility] Color (U) Yellow Colorless, Yellow [facility] Epithelial cells.squamous Auto (Urine sed) [#/Area] 5 High [facility] Glucose Auto test strip (U) [Mass/Vol] Negative Negative mg/dL [facility] Hemoglobin Auto test strip Ql (U) Moderate Abnormal Negative [facility] Interpretation and review of laboratory results Abnormal [facility] Ketones (U) [Mass/Vol] Negative Negative mg/dL [facility] Leukocyte esterase Auto test strip Ql (U) Trace Abnormal Negative [facility] Mucus Auto (Urine sed) [#/Area] Rare None Seen, Rare /lpf [facility] Nitrite Auto test strip Ql (U) Negative Negative [facility] pH (U) 7.0 [pH] [facility] Protein (U) [Mass/Vol] Negative Negative mg/dL [facility] RBC Auto (Urine sed) [#/Area] 2 [facility] Specific gravity (U) [Rel density] 1.011 [facility] Urobilinogen (U) [Mass/Vol] <2.0 <2.0 mg/dL [facility] WBC Auto (Urine sed) [#/Area] 2 [facility] Microscopic examination is performed on all urinalysis samples and only positive findings are reported. The test for blood on the chemical analytic portion of urinalysis may also be positive due to hemoglobinuria and myoglobinuria and if red blood cells are present they are quantified by microscopic examination. [facility] OB 1ST TRIMESTER WITH TRA NSVAGINAL [...] bleeding, spontaneous of is believed most likely. [facility] Workstation ID: [id number] Dictated by: SHAY FERNANDEZ on Sat Jul 14, 2020 12:00:51 PM EDT Transcribed by: PREETI VILLALTA on Sat Jul 14, 2020 12:07:08 PM EDT Finalized by: SHAY FERNANDEZ on Sat Jul 14, 2020 12:57:25 PM EDT Normal [facility] Comment on above: Order Comment: Injur [...] limits. No free peritoneal fluid is seen. [facility] 1. Normal study. 2. With a positive beta hCG, this is a of unknown location. Clinical correlation including serial beta hCG levels is needed differentiate the possibilities which include extremely early , spontaneous of recent , or ectopic gestation which is not directly visualized. With a history of bleeding, spontaneous of is believed most likely. [facility] Workstation ID: [id number] [facility] Interface, Rad In Roblesi Speechq - 07/14/2020 1:00 PM EDT EXAMINATION: [...] bleeding, spontaneous of is believed most likely. [facility] Workstation ID: [id number] [facility] VAGINITIS DNA PROBESon 07-14 Olga sp DNA Probe+sig amp Ql (Vag fld) Negative Negative [facility] G. vaginalis DNA Probe+sig amp Ql (Vag fld) Negative Negative [facility] Interpretation and review of laboratory results Normal [facility] T. vaginalis DNA Probe+sig amp Ql (Vag fld) Negative Negative [facility] hCG, Blood, QUANTitativeon 0 07-14-2020 Beta HCG ( test) Ql (U) Males and non females: <5 mIU/mL Females during : 3-4 weeks 9-130 mIU/mL 4-5 weeks 75-2600 mIU/mL 5-6 weeks 850-20,800 mIU/mL 6-7 weeks 4000-100,200 mIU/mL 7-12 weeks 11,500-289,000 mIU/mL 12-16 weeks 18,300-137,000 mIU/mL 16-29 weeks 1,400-53,000 mIU/mL 29-41 weeks 940-60,000 mIU/mL [facility] HCG Qn 438 m[IU]/mL High [facility] Basic Metabolic Panelon 04-0 Anion gap [Moles/Vol] 7.0 mmol/L Normal 6.0-18.0 [facility] Comment on above: Performed By: #### 2 4321-2, 77174-4, 95571-7x5, 1988- ####[facility] [address], [place] Calcium [Mass/Vol] 8.6 mg/dL Low 8.9-10.3 [facility] Comment on above: Performed By: #### 2 4321-2, 80078-9, 96058-2v6, 1988-03 ####[facility] [address], [place] Chloride [Moles/Vol] 107 mmol/L Normal 98-107 [facility] Comment on above: Performed By: #### 2 4321-2, 04516-9, 25138-6l2, 1988-03 ####[facility] [address], [place] CO2 [Moles/Vol] 24 mmol/L Normal 22-32 [facility] Comment on above: Performed By: #### 2 4321-2, 52235-8, 56264-5s9, 1988-03 ####[facility] [address], [place] Creatinine [Mass/Vol] 0.67 mg/dL Normal 0.60-1.30 [facility] Comment on above: Performed By: #### 2 4321-2, 89666-9, 26037-4t7, 1988-03 ####[facility] [address], [place] Glucose [Mass/Vol] 105 mg/dL High 70-99 [facility] Comment on above: Result Comment: U pdated ADA Reference Range A normal fasting glucose concentration is less than 100 mg/dL. An impaired fasting glucose concentration is 100-125 mg/dL. A provisional diagnosis of diabetes mellitus can be made when a fasting glucose concentration is greater than 125 mg/dL. Performed By: #### 2 4321-2, 70641-7, 87280-3i3, 1988-03 ####[facility] [address], [place] Potassium [Moles/Vol] 4.1 mmol/L Normal 3.6-5.1 [facility] Comment on above: Performed By: #### 2 4321-2, 61778-4, 52309-4k9, 1988-03 ####[facility] [address], [place] Sodium [Moles/Vol] 138 mmol/L Normal 136-145 [facility] Comment on above: Performed By: #### 2 4321-2, 54545-4, 86184-8e0, 1988-03 ####[facility] [address], [place] Urea nitrogen (BldV) [Mass/Vol] 8 mg/dL Normal 8-20 [facility] Comment on above: Performed By: #### 2 4321-2, 19741-3, 49315-8t0, 1988-03 ####[facility] [address], [place] C-Reactive Proteinon 019 CRP [Mass/Vol] 3.2 mg/dL High <1.[address] [facility] Comment on above: Performed By: #### 2 4321-2, 04099-6, 77303-4u4, 1988-03 ####[facility] [address], [place] CBCon 03-01-2019 Erythrocyte distribution width (RBC) [Entitic vol] 14.3 % Normal 11.0-14.8 [facility] Comment on above: Performed By: #### 2 4317-0 ####[place] [address], [place] Hematocrit (Bld) [Volume fraction] 37.5 % Normal 35.0-45.0 [facility] Comment on above: Performed By: #### 2 7-0 ####[place] [address], [place] Hemoglobin (Bld) [Mass/Vol] 12.5 g/dL Normal 12.0-16.0 [facility] Comment on above: Performed By: #### 2 4317-0 ####[facility] [address], [place] MCH (RBC) [Entitic mass] 28.1 Picograms Normal 27.0-34.0 [facility] Comment on above: Performed By: #### 2 4317-0 ####[place] [address], [place] MCHC (RBC) [Mass/Vol] 33.3 g/dL Normal 32.0-36.0 [facility] Comment on above: Performed By: #### 2 4317-0 ####[place] [address] [place], [place] MCV (RBC) [Entitic vol] 84.6 fL Normal 80.0-97.0 [facility] Comment on above: Performed By: #### 2 4317-0 ####[place] [address] [place] Platelet mean volume (Bld) [Entitic vol] 10.5 fL Normal 6.2-12.1 [facility] Comment on above: Performed By: #### 2 4317-0 ####[place] [address] [place] Platelets (Bld) [#/Vol] 231 thou/mcL Normal 142-424 [facility] Comment on above: Performed By: #### 2 4317-0 ####[address] RBC (Bld) [#/Vol] 4.43 million/mcL Normal 3.80-5.10 [facility] Comment on above: Performed By: #### 2 4317-0 ####[address] WBC (Bld) [#/Vol] 12.7 thou/mcL High 4.6-10.2 [facility] Comment on above: Performed By: #### 2 4317-0 ####[address] GFRaaon 03-01-2019 GFR/1.73 sq M predicted among blacks MDRD (S/P/Bld) [Vol rate/Area] mL/min/{1.73_m2} Normal [facility] Comment on above: Result Comment: The MDRD equation has not been validated for those over 70 years, women, patients with serious co-morbid conditions, or with extremes of body size, muscle mass of nutritional status. Performed By: #### 2 4321-2, 38183-9, 42096-7z9, 1987- ####[place] [address] GFRbbon 03-01-2019 GFR/1.73 sq M predicted among non-blacks MDRD (S/P/Bld) [Vol rate/Area] mL/min/{1.73_m2} Normal [facility] Comment on above: Performed By: #### 2 4321-2, 81155-6, 93126-8w3, 1987- ####[facility] [address], [place] Glucose POCT (Uploaded)on Glucose [Mass/Vol] 87 mg/dL Normal 70-99 [facility] Comment on above: Result Comment: Nadia tment ranges and critical values established by Patient Care Services. All follow-up actions were taken by Patient Care Services. Performed By: #### 2 430-8 ####[facility] Glucose [Mass/Vol] 93 mg/dL Normal 70-99 [facility] Comment on above: Result Comment: Nadia tment ranges and critical values established by Patient Care Services. All follow-up actions were taken by Patient Care Services. Performed By: #### 2 430-8 ####[facility] Glucose [Mass/Vol] 95 mg/dL Normal 70-99 [facility] Comment on above: Result Comment: Nadia tment ranges and critical values established by Patient Care Services. All follow-up actions were taken by Patient Care Services. Performed By: #### 2 430-8 ####[facility] Glucose [Mass/Vol] 123 mg/dL High 70-99 [facility] Comment on above: Result Comment: Nadia tment ranges and critical values established by Patient Care Services. All follow-up actions were taken by Patient Care Services. Performed By: #### 2 430-8 ####[facility] PACU I Nursingon 03-01-2019 PACU I Nursing [facility] PACU I Jerri robledo Record Summary Primary Physician: Marcellus Driscoll MD Finalized Date/Time: 03/01/19 07:03:14 Pt. Name: SABRINA VELASQUEZ/Sex: 1990 Female Med Rec #: [id number] Physician: Yamila URBINA , Marcellus Ramsay Financial #: [id number] Pt. Type: I Room/Bed: [facility] Admit/Disch: 02/28/19 08:18:00 - Institution: [place] [facility] OR Main PACU I Case Times [...] 15:45 Sherrie Rendon RN 03/01/19 07:03 Normal [facility] Patient Summaryon 03-01-2019 Patient Summary PATIENT DISCHARGE INSTRUCTIONS If you are having an emergency and are not able to reach your physician, CALL 911 or go to the nearest emergency room and take this document with you. [facility] 03/01/19 18:42 [address] [place]. [address] PATIENT INFORMATION Name: SABRINA VELASQUEZ Address: [address] [place] [id number] Age: 29 Years Phone: [phone] : 1990 12:00 MRN: ([facility])-[id number] Sex: Female Race: White Ethnicity: Declined Admitted From: Clinic or [facility] Medical Service: Surgery Nurse Unit/Bed: ([place]) 7T 0F21-56 Admit Date: 02/28/2019 08:18 PCP: Killian Omid URBINA PHYSICIANS INVOLVED WITH CARE ------ Attending Physicians: Yamila URBINA , Marcellus Ramsay - Surgery Admitting Physician: Marcellus Driscoll MD - Surgery Primary Care Physician:Omid Killian MD, - Consults: None found FOLLOW-UP APPOINTMENTS: Provider: Specialty: Address: Date: Marcellus Driscoll MD Surgery [address] [facility] [address] [place] [address] (1) 03/08/19 01:45 pm Comment: Please follow-up at your pre-scheduled appointment. Provider: Specialty: Address: Date: Omid Killian MD [address] [place] [address] (1) Follow-up as needed Provider: Specialty: Address: Date: Post-Op Nutrition Class [address] [facility] [address] 03/22/19 Comment: Please call [phone] for more information or to re-schedule. ALLERGIES: [...] doses are changed, or new medications (including dwlw-sxe-bgwzzax products) are added. Ask your doctor if [...] diet. Follow recommendations from your surgeon and supply person regarding you diet. Refer to nutrition information [...] doctor before taking any supplements, herbal or oomy-aco-wnbdogi medications. Call your physician if any questions [...] suicide hotline, anytime day or night, at 1-801-579-UXEH. Important information about accessing your health information through the [facility] patient portal If you initiated the self-registration process for [employer] during your stay, please check your personal email for an invitation to enroll in [employer] and complete the steps outlined in the email. If you would prefer to enroll while in the hospital, ask a member of your care team. We would be happy to assist you. If you have already enrolled in [employer], go to [email or web address] [facility] [email or web address] to login and access your health information. Thank you for choosing [facility]. PATIENT EDUCATION Gastric Bypass Surgery, Care After [...] of caffeine can cause dehydration. ?? A supply person may also give you specific instructions. ?? [...] 06/30/2005 Document Revised: 12/07/2015 Document Reviewed: 04/08/2011 [employer] Interactive Patient Education ??2016 [employer] Gastric Bypass Discharge Instructions 1. Follow-up [...] dietitian for post-operative class at 2 weeks [phone] ? Call Bariatric Nurse Navigator [phone] with any further questions or concerns Call [phone] if you have difficulty breathing or chest [...] provided above is for informational purposes only. [facility] does not promote, condone or endorse all the values expressed herein. The values or opinions they express with regard to the use of artificial contraception are not consistent with the teachings of the Evangelical Zoroastrianism and the Ethical and Sikhism Directives for [facility]. If any of these instructions are different from what your doctor tells you, follow your doctor's orders. If you smoke, you should quit. For more information, talk with your doctor or call [phone]-NOW ( ). PATIENT DISCHARGE INSTRUCTION Signature Page for: SABRINA VELASQUEZ Date/Time: 03/01/2019 18:42:02 A Clinician has explained the information on my discharge instructions and has provided me with a copy. My questions have been answered to my satisfaction. Patient Signature Date/Time Responsible Party Date/Time Relationship to Patient Clinician Signature Date/Time Normal [facility] Glucose POCT (Uploaded)on Glucose [Mass/Vol] 140 mg/dL High [address] [place] [address] Comment on above: Result Comment: Nadia tment ranges and critical values established by Patient Care Services. All follow-up actions were taken by Patient Care Services. Performed By: #### 2 430-8 ####[facility] Glucose [Mass/Vol] 127 mg/dL High [address] [place] [address] Comment on above: Result Comment: Nadia tment ranges and critical values established by Patient Care Services. All follow-up actions were taken by Patient Care Services. Performed By: #### 2 430-8 ####[facility] Glucose [Mass/Vol] 141 mg/dL High [address] [place] [address] Comment on above: Result Comment: Nadia tment ranges and critical values established by Patient Care Services. All follow-up actions were taken by Patient Care Services. Performed By: #### 2 430-8 ####[facility] Glucose [Mass/Vol] 164 mg/dL High [address] [place] [address] Comment on above: Result Comment: Nadia tment ranges and critical values established by Patient Care Services. All follow-up actions were taken by Patient Care Services. Performed By: #### 2 430-8 ####[facility] OR Nursingon 02-28-2019 OR Nursing [facility] OR Nursing Record Summary Primary Physician: Marcellus Driscoll MD Finalized Date/Time: 02/28/19 14:10:30 Pt. Name: SABRINA VELASQUEZ/Sex: 1990 Female Med Rec #: [id number] Physician: Marcellus Driscoll MD Financial #: [id number] Pt. Type: I Room/Bed: / Admit/Disch: 02/28/19 [...] [place] Role Performed Primary Surgeon Anesthesiologist Nurse Orthodontist Time In 02/28/19 11:17:00 02/28/19 11:17:00 02/28/19 [...] Guaman RN , Litzy Garcia Role Performed lathe operator RN First Scrub Time In 02/28/19 11:17:00 02/28/19 11:17:00 02/28/19 11:17:00 Time Out 02/28/19 14:05:00 02/28/19 14:05:00 02/28/19 14:05:00 Procedure Bypass Gastric Bypass Gastric Bypass Gastric Robot(N/A) Robot(N/A) Robot(N/A) Attendee Comment LUNCH [id number] LUNCH 8595-4310 lunch [id number] Relief Reason Last Modified By: Abner MARTIN , Disha Levine RN , Disha Levine RN , Disha Aiken 02/28/19 14:09:25 02/28/19 14:09:25 02/28/19 14:09:25 Entry 7 Entry 8 Entry 9 Case Attendee Zoroastrianism RN , Swetha Rao Case, Attendee Other Role Performed lathe operator First Scrub Pairer Substandard Time In 02/28/19 11:48:00 02/28/19 11:57:00 02/28/19 11:17:00 Time Out 02/28/19 12:40:00 02/28/19 12:53:00 02/28/19 14:05:00 Procedure Bypass Gastric Bypass Gastric Bypass Gastric Robot(N/A) Robot(N/A) Robot(N/A) Attendee Comment [place] MIRANDA - INTUITIVE Relief Reason Last Modified By: Abner MARTIN , Disha Levine RN , Disha Duke RN 02/28/19 14:09:25 02/28/19 14:09:25 02/28/19 14:09:25 CO [facility] OR General Case Cobol Mainframe Developer 1 OR CO W 11 ASA Class [...] Arrival? No 16FR TEMP SEN W/URINE METER [id number] Inserted By Oly Guaman RN at End [...] OR Temperature Regulation Entry 1 Unit ID [id number] Site UPPER BODY Last Modified By: Gissell [...] By: Disha Levine RN 02/28/19 14:10 Normal [facility] PreOp Nursingon 02-28-2019 PreOp Nursing [facility] PreOp Nursing Record Summary Primary Physician: Marcellus Driscoll MD Finalized Date/Time: 02/28/19 12:08:12 Pt. Name: SABRINA VELASQUEZ/Sex: 1990 Female Med Rec #: [id number] Physician: Marcellus Driscoll MD Financial #: [id number] Pt. Type: I Room/Bed: / Admit/Disch: 02/28/19 [...] By: Gissell Joshi RN 02/28/19 12:08 Normal [facility] CBC with Differentialon 01-29 Basophils (Bld) [#/Vol] 0.00 thou/mcL Normal 0.00-0.20 [facility] Comment on above: Performed By: #### 5 7021-8 #### [facility] [address], [place] Basophils/100 WBC (Bld) 0.4 % Normal 0.0-2.0 [facility] Comment on above: Performed By: #### 5 7021-8 #### [facility] [address], [place] Eosinophils (Bld) [#/Vol] 0.10 thou/mcL Normal 0.00-0.70 [facility] Comment on above: Performed By: #### 7021-8 #### [facility] [address] [place] Eosinophils/100 WBC (Bld) 1.5 % Normal 0.0-7.0 [facility] Comment on above: Performed By: #### 7021-8 #### [facility] [address] [place] Erythrocyte distribution width (RBC) [Entitic vol] 14.8 % Normal 11.0-14.8 [facility] Comment on above: Performed By: #### 7021-8 #### [facility] [place] [place] [address], [place] Hematocrit (Bld) [Volume fraction] 41.4 % Normal 35.0-45.0 [facility] Comment on above: Performed By: #### 7021-8 #### [facility] [place] [place] [address], [place] Hemoglobin (Bld) [Mass/Vol] 13.7 g/dL Normal 12.0-16.0 [facility] Comment on above: Performed By: #### 7021-8 #### [place] [address] [place], [place] Lymphocytes (Bld) [#/Vol] 1.80 thou/mcL Normal 1.00-4.80 [facility] Comment on above: Performed By: #### 7021-8 #### [facility] [address] [place] Lymphocytes/100 WBC (Bld) 21.5 % Low 22.0-44.0 [facility] Comment on above: Performed By: #### 5 7021-8 #### [place] [address], [place] MCH (RBC) [Entitic mass] 28.6 Picograms Normal 27.0-34.0 [facility] Comment on above: Performed By: #### 5 7021-8 #### [facility] [facility] [address], [place] MCHC (RBC) [Mass/Vol] 33.2 g/dL Normal 32.0-36.0 [facility] Comment on above: Performed By: #### 7021-8 #### [facility] [address], [place] MCV (RBC) [Entitic vol] 86.0 fL Normal 80.0-97.0 [facility] Comment on above: Performed By: #### 7021-8 #### [facility] [address], [place] Monocytes (Bld) [#/Vol] 0.60 thou/mcL Normal 0.00-0.90 [facility] Comment on above: Performed By: #### 7021-8 #### [place] [address], [place] Monocytes/100 WBC (Bld) 7.5 % Normal 0.0-12.0 [facility] Comment on above: Performed By: #### 7021-8 #### [place] [address], [place] Neutrophils (Bld) [#/Vol] 5.90 thou/mcL Normal 1.80-7.70 [facility] Comment on above: Performed By: #### 7021-8 #### [place] [address] [place], [place] Neutrophils/100 WBC (Bld) 69.1 % Normal 40.0-70.0 [facility] Comment on above: Performed By: #### 7021-8 #### [facility] [address], [place] Platelet mean volume (Bld) [Entitic vol] 11.3 fL Normal 6.2-12.1 [facility] Comment on above: Performed By: #### 7021-8 #### [place] [address] [place], [place] Platelets (Bld) [#/Vol] 194 thou/mcL Normal 142-424 [facility] Comment on above: Performed By: #### 7021-8 #### [facility] [address], [place] RBC (Bld) [#/Vol] 4.81 million/mcL Normal 3.80-5.10 [facility] Comment on above: Performed By: #### 5 7021-8 #### [facility] [address], [place] WBC (Bld) [#/Vol] 8.5 thou/mcL Normal 4.6-10.2 [facility] Comment on above: Performed By: #### 5 7021-8 #### [facility] [address], [place] Comprehensive Metabolic Pane satnam 2019 Albumin [Mass/Vol] 3.3 g/dL Low 3.5-4.8 [facility] Comment on above: Performed By: #### 2 4323-8, 48509-3i0, 20578-9 ####[place] [address], [place] ALP [Catalytic activity/Vol] 72 Units/L Normal 32-91 [facility] Comment on above: Performed By: #### 2 4323-8, 21785-0g2, 09613-7 ####[facility] [address], [place] ALT [Catalytic activity/Vol] 18 Units/L Normal 14-63 [facility] Comment on above: Performed By: #### 2 4323-8, 17457-2g9, 95822-8 ####[facility] [address], [place] Anion gap [Moles/Vol] 10.0 mmol/L Normal 6.0-18.0 [facility] Comment on above: Performed By: #### 2 4323-8, 92735-9v4, 99112-4 ####[place] [address] AST [Catalytic activity/Vol] 17 Units/L Normal 15-41 [facility] Comment on above: Performed By: #### 2 4323-8, 65062-4m0, 09953-2 ####[facility] [address], [place] Bilirubin [Mass/Vol] 0.7 mg/dL Normal 0.3-1.2 [facility] Comment on above: Performed By: #### 2 4323-8, 15795-6t0, 66768-2 ####[facility] [address], [place] Calcium [Mass/Vol] 8.5 mg/dL Low 8.9-10.3 [facility] Comment on above: Performed By: #### 2 4323-8, 45865-1p4, 87630-7 ####[facility] [address], [place] Chloride [Moles/Vol] 104 mmol/L Normal 98-107 [facility] Comment on above: Performed By: #### 2 4323-8, 15961-5f0, 10983-3 ####[facility] [address], [place] CO2 [Moles/Vol] 22 mmol/L Normal 22-32 [facility] Comment on above: Performed By: #### 2 4323-8, 13805-6h7, 83320-0 ####[facility] [address], [place] Creatinine [Mass/Vol] 0.79 mg/dL Normal 0.60-1.30 [facility] Comment on above: Performed By: #### 2 4323-8, 63520-0c3, 05057-0 ####[facility] [address], [place] Glucose [Mass/Vol] 93 mg/dL Normal 70-99 [facility] Comment on above: Result Comment: U pdated ADA Reference Range A normal fasting glucose concentration is less than 100 mg/dL. An impaired fasting glucose concentration is 100-125 mg/dL. A provisional diagnosis of diabetes mellitus can be made when a fasting glucose concentration is greater than 125 mg/dL. Performed By: #### 2 4323-8, 27371-3o3, 83995-8 ####[facility] [address], [place] Potassium [Moles/Vol] 4.1 mmol/L Normal 3.6-5.1 [facility] Comment on above: Performed By: #### 2 4323-8, 08890-5c7, 56192-7 ####[facility] [address], [place] Protein [Mass/Vol] 6.0 g/dL Low 6.1-7.9 [facility] Comment on above: Performed By: #### 2 4323-8, 81055-5u0, 72585-3 ####[facility] [address] [place] [place] Sodium [Moles/Vol] 136 mmol/L Normal 136-145 [facility] Comment on above: Performed By: #### 2 4323-8, 68883-0n9, 20564-3 ####[facility] [address] [place] [place] Urea nitrogen (BldV) [Mass/Vol] 13 mg/dL Normal 8-20 [facility] Comment on above: Performed By: #### 2 4323-8, 26833-6y2, 64746-4 ####[place] [address], [place] GFRaaon 2019 GFR/1.73 sq M predicted among blacks MDRD (S/P/Bld) [Vol rate/Area] mL/min/{1.73_m2} Normal [facility] Comment on above: Result Comment: The MDRD equation has not been validated for those over 70 years, women, patients with serious co-morbid conditions, or with extremes of body size, muscle mass of nutritional status. Performed By: #### 2 4323-8, 10741-5o4, 51291-6 ####[facility] [address] [place] GFRbbon 2019 GFR/1.73 sq M predicted among non-blacks MDRD (S/P/Bld) [Vol rate/Area] mL/min/{1.73_m2} Normal [facility] Comment on above: Performed By: #### 2 4323-8, 52068-5l0, 07095-5 ####[facility] [address], [place] Glycohemoglobin (HGB A1C) Emanuel guardado 2019 HbA1c (Bld) [Mass fraction] 5.0 % tl hgb Normal <5.6 [facility] Comment on above: Result Comment: U pdated ADA Reference Range HbA1c values of 5.7-6.4 percent indicate an increased risk for developing diabetes mellitus. HbA1c values greater than or equal to 6.5 percent are diagnostic of diabetes mellitus. For diagnosis of diabetes in individuals without unequivocal hyperglycemia, results should be confirmed by repeat testing. Performed By: #### 4 549-2 ####[facility], [address] [place] [address]. Partial Thromboplastin Time (aPTT)on 2019 aPTT Coag (PPP) [Time] 29.6 Sec Normal 23.6-35.3 [facility] Comment on above: Performed By: #### 3 173-2, 5902-2 ####[facility], [address] [place] [address]. Prothrombin Timeon 9 INR Coag (Bld) [Relative time] 1.00 {INR} Normal [facility] Comment on above: Result Comment: The recommended therapeutic INR range for most cardiac indications is 2.0-3.0. For high intensity therapy(ie.mechanical heart valves), the recommended range is 2.5-3.5. Performed By: #### 3 173-2, 5902-2 ####[facility], [address] [place] [address]. PT Coag (PPP) [Time] 11.5 Sec Normal 9.3-12.4 [facility] Comment on above: Performed By: #### 3 173-2, 5902-2 ####[facility], [address] [place] [address]. XR Chest 2 Viewson 9 XR Chest 2 views Two-view chest exam Indication: pre-op. Cough for the past week. COMPARISON: E 66.01 FINDINGS: The lungs are clear and the costophrenic angles are sharp. The cardiomediastinal silhouette and bones are normal. IMPRESSION: Normal chest. [facility] thanks you for the opportunity to care for your patient. Workstation ID: [id number] FINAL REPORT Dictated By: Jean Hull MD 2019 08:47 Assigned Physician: Jean Hull MD Reviewed and Electronically Signed By: Jean Hull MD 2019 08:48 Transcribed by: GREGORY 2019 08:47 Technologist: SHAKA Carranza [facility] OR Nursingon 09-17-2018 OR Nursing CO [facility] OR Nursing Record Summary Primary Physician: Tristan Dickey MD Finalized Date/Time: 09/17/18 07:39:53 Pt. Name: SABRINA VELASQUEZO.B./Sex: 1990 Female Med Rec #: [id number] Physician: Financial #: [id number] Pt. Type: I Room/Bed: / Admit/Disch: 09/16/18 [...] Wolf DO Role Performed Primary Surgeon Nurse Orthodontist Anesthesiologist Time In 09/16/18 14:20:00 09/16/18 14:20:00 09/16/18 14:20:00 Time Out 09/16/18 14:30:00 09/16/18 14:30:00 09/16/18 14:30:00 Procedure Egd_(N/A) Egd_(N/A) Egd_(N/A) Attendee Comment Relief Reason Last Modified By: Breanna RN , Afia Carlos RN , Afia Carlos RN , Afia 09/16/18 14:31:12 09/16/18 14:31:12 09/16/18 14:31:12 Entry 4 Entry 5 Case Attendee Breanna RN , Afia Bernabe RN , Rosalio Cohn lathe operator Shelving Supervisor Time In 09/16/18 14:20:00 09/16/18 14:20:00 Time Out 09/16/18 14:30:00 09/16/18 14:30:00 Procedure Egd_(N/A) Egd_(N/A) Attendee Comment Relief Reason Last Modified By: Breanna RN , Afia Carlos RN , Afia 09/16/18 14:31:12 09/16/18 14:31:12 CO [facility] General Case Cobol Mainframe Developer 1 OR CO W EN 02 ASA [...] ANES. PAPER RECORD KEILA MARTIN [facility] Surgical Procedures Entry 1 Procedure Egd_ Primary [...] Afia Carlos RN 09/16/18 14:22:19 [facility] End[facility] Cheng Score Entry 1 Activity 2-Able [...] 07:39 Sherrie Rendon RN 09/17/18 07:39 Normal [facility] Post PACU Nursingon 09-17-20 Post PACU Nursing [facility] PACU II Nursing Record Summary Primary Physician: Tristan Dickey MD Finalized Date/Time: 09/17/18 07:40:27 Pt. Name: SABRINA VELASQUEZ /Sex: 1990 Female Med Rec #: [id number] Physician: Financial #: [id number] Pt. Type: I Room/Bed: / Admit/Disch: 09/16/18 13:46:00 - 09/16/18 15:20:00 Institution: [facility] PACU II Case Times Entry 1 In PACU II 09/16/18 14:34:00 Ready for PACU II 09/16/18 14:49:00 Discharge Discharge from PACU 09/16/18 15:20:00 II Last Modified By: Rocio Turcios RN 09/16/18 15:26:17 [facility] PACU II Case Attendees Entry 1 Case Attendee Rocio Turcios RN RN Last Modified By: Rocio Turcios RN 09/16/18 15:04:00 Finalized By: Sherrie Rendon RN Document Signatures Signed By: Sherrie Rendon RN 09/17/18 07:35 Sherrie Rendon RN 09/17/18 07:40 Normal [facility] PreOp Nursingon 09-17-2018 PreOp Nursing CO [facility] PreOp Nursing Record Summary Primary Physician: Tristan Dickey MD Finalized Date/Time: 09/17/18 07:36:42 Pt. Name: FRANCISCO VELASQUEZEE /Sex: 1990 Female Med Rec #: [id number] Physician: Financial #: [id number] Pt. Type: I Room/Bed: / Admit/Disch: 09/16/18 13:46:00 - 09/16/18 15:20:00 Institution: [facility] PreOp Case Times Entry 1 PreOp [...] 07:36 Sherrie Rendon RN 09/17/18 07:36 Normal [facility] Patient Summaryon 09-16-2018 Patient Summary PATIENT DISCHARGE INSTRUCTIONS If you are having an emergency and are not able to reach your physician, CALL 911 or go to the nearest emergency room and take this document with you. [facility] 09/16/18 14:45 [address] [place]. [address] PATIENT INFORMATION Name: SABRINA VELASQUEZ Address: [address] [place] [address] Age: 28 Years Phone: [phone] : 1990 12:00 MRN: ([id number] Sex: Female Race: White Ethnicity: Declined Admitted From: Clinic or [facility] Medical Service: Surgery Nurse Unit/Bed: (ALRosa Maria ChaconTAMIKO N/A Admit Date: 09/16/2018 13:46 PCP: Omid [...] doses are changed, or new medications (including lwco-cno-pgdhenr products) are added. Ask your doctor if [...] suicide hotline, anytime day or night, at 3-643-583-UPJF. Important information about accessing your health information through the [facility] [employer] patient portal If you initiated the self-registration process for [employer] during your stay, please check your personal email for an invitation to enroll in [employer] and complete the steps outlined in the email. If you would prefer to enroll while in the hospital, ask a member of your care team. We would be happy to assist you. If you have already enrolled in [employer], go to [email or web address].a.[email or web address][employer] to login and access your health information. Thank you for choosing [employer]. PATIENT EDUCATION Esophagogastroduodeno scopy, Care After Refer [...] 11/02/2013 Document Revised: 12/07/2015 Document Reviewed: 11/02/2013 [employer] Interactive Patient Education ?2016 [employer] VIRUSES OR BACTERIA: WHAT'S GOT YOU [...] Relationship to Patient Clinician Signature Date/Time Normal [facility] ECG 12 leadon 06-14-2018 Atrial Rate Invalid Interpretation Code [facility] P [place] Invalid Interpretation Code [facility] P-R Interval Invalid Interpretation Code [facility] Q-T Interval Invalid Interpretation Code [facility] Q-T Interval (corrected) Invalid Interpretation Code [facility] QRS Duration Invalid Interpretation Code [facility] QTC Calculation (Bezet) Invalid Interpretation Code [facility] R [place] Invalid Interpretation Code [facility] T [place] Invalid Interpretation Code [facility] Ventricular Rate Invalid Interpretation Code [facility] Vital Signs Date Time Vital Sign Value Performing Clinician Abbey ruiz 07-14-2020 13:00-0400 BP Diastolic 78 mm[Hg[facility] 07-14-2020 13:00-0400 BP Systolic 123 mm[Hg] Alicia Hudson [facility] 07-14-2020 13:00-0400 Pulse (Heart Rate) 55 /min Alicia Hudson [facility] 07-14-2020 13:00-0400 Pulse Oximetry 100 % [facility] 07-14-2020 10:06-0400 Body Temperature 98.8 [degF] Alicia Hudson [facility] 07-14-2020 10:04-0400 BMI (Body Mass Index) 43.58 kg/m2 Alicia Hudson [facility] 07-14-2020 10:04-0400 Body weight [facility].47 [facility] 07-14-2020 10:04-0400 Height 167.6 cm Alicia Hudson [facility] 07-14-2020 10:04-0400 Respiratory Rate 16 /min Alicia Hudson [facility] 06-14-2018 09:16-0400 BMI (Body Mass Index) [...] [facility] 06-14-2018 09:16-0400 Weight 177.72 kg Josefina Tracy [facility] Encounters Encounter Date Encounter Type Care Provider Facility Start: 06-14-2024 End: 06-14-2024 ambulatory LIA MAKAYLA Not Available Start: 06-09-2024 End: 06-09-2024 ambulatory LIA MAKAYLA Not Available Start: 06-01-2024 End: 06-01-2024 ambulatory LIA MAKAYLA [...] 07-14-2020 Emergency department patient visit OMID MARTINEZ [facility] Start: 07-14-2020 End: 07-14-2020 Emergency department patient visit Alicia Hudson Work Phone: [facility] Emergency Department Comment on above: Threatened (Primary Dx) Start: 12-13-2018 End: 12-13-2018 Patient encounter procedure Lauren Rivera [facility] Start: 06-14-2018 End: 06-14-2018 Patient encounter PROVIDER NOT IN SYSTEM [facility] Start: 06-14-2018 End: 06-14-2018 Office outpatient new 30 minutes Provider Not In System [facility] Start: 05-17-2018 End: 05-17-2018 Patient encounter VANESSA JAVAN [facility] Start: 05-17-2018 End: 05-17-2018 Office outpatient new 30 minutes Vanessa Emmett Work Phone: [facility] Procedures Date Procedure Procedure Detail Performing Clinician Start: 07-14-2020 Blood group typing Chris small[place] Work Phone: Start: 07-14-2020 PINK TOP Alicia Hudson Work Phone: Start: 07-14-2020 Us uterus 14 wk transabdl 11/30 gestat Chrismadeline Lopezllneida Pate Work Phone: Start: 07-14-2020 Basic metabolic 2000 panel - Serum or Plasma Chris Sammie Pate Work Phone: Start: 07-14-2020 Blood type and Indirect antibody screen panel - Blood Chris Smileye Pate Work Phone: Start: 07-14-2020 Choriogonadotropin [Units/volume] in Serum or Plasma Chris Sammie Pate Work Phone: Start: 07-14-2020 Complete blood count with white cell differential, automated Chrismadeline Lopezlle Pate Work Phone: Start: 07-14-2020 Complete blood count with white cell differential, manual Chrismadeline Lopezlle Pate Work Phone: Start: 07-14-2020 LIGHT BLUE TOP Chrismadeline [place] Work Phone: Start: 07-14-2020 LIGHT GREEN TOP ChrisJuliet [place] Work Phone: Start: 07-14-2020 End: 07-14-2020 RAINBOW DRAW Chris Sammie Shorty [place] Work Phone: Start: 07-14-2020 Urinalysis Chris Sammieneida [place] Work Phone: Start: 07-14-2020 Gardnerella vaginalis rRNA assay Chrismadeline Smileye Pate Work Phone: Plan of Treatment Date Care Activity Detail Author Start: 07-31-2020 Influenza vaccinatio n given Sequential Influenza Vaccine (#1) [facility] Start: 07-31-2018 Influenza vaccination [facility] Start: 07-31-2018 Influenza vaccinatio n given SEQUENTIAL INFLUENZA VACCINE (#1) [facility] Start: 07-19-2018 End: 07-19-2018 Ambulatory 07/19/2018 Office Visit Dermatology Vanessa Roland Jr., DO [address] [place] [address] [phone] [facility] Start: 06-14-2018 End: 06-14-2018 Ambulatory 06/14/2018 Office Visit Cardiology System, Provider Not In [facility], Josefina Matthew MD [address] [place] [address] [phone] [facility] Start: 02-21-2010 Hepatitis C antibody , confirmatory test Hepatitis C Screening [facility] Start: 02-21-2007 HIV screening HIV Screening [facility] Start: 02-21-1995 History and physical examination, annual for health maintenance Wellness Visit [facility] Start: 1992 Screening for malign ant neoplasm of cervix PAP SMEAR [facility] Start: 1992 [facility] End: 07-14-2020 Neisseria gonorrhoeae nucleic acid detection Chlamydia/Gonorrhoeae Amplified RNA Microbiology Routine Once for 1 Occurrences starting 07/14/2020 until 07/14/2020 [facility] Comment on above: Once for 1 Occurrenc es starting 07/14/2020 until 07/14/2020 Neisseria gonorrhoea e nucleic acid detection Chlamydia/Gonorrhoeae Amplified RNA Microbiology Routine 07/14/2020 11:20 AM EDT [facility] Payers Date Payer Category Payer Medicaid [id number] 2020 Medicaid [employer] MEDICA[employer] MEDICA[employer] xxxxxxxxxxx 2020-Present xxxxxxxxxxx [id number] 2020 Medicaid [id number] 2019 Private Health Insurance [id number] 2017 Unknown [id number] 2017 Unknown [facility] HMO/BECKY/ BECKY PLUS/CHOICE PLUS xxxxxxxxx 2017-Present xxxxxxxxx [id number] 1992 Unknown [id number] [id number]. 903 1992 Unknown [id number] 2.16.840.1.788181.3.579.2. 1259 1992 Unknown [id number] 2.16.840.1.711047.3.579.2. 9 1992 Unknown [id number] 2.16840.1.786950.3.579.2. 9 1992 Unknown [id number] 2.16.840.1.331149.3.579.2. 9 1992 Unknown [id number] 2.16840.1.131649.3.579.2. 9 1992 Unknown [id number] 2.16840.1.986386.3.579.2. 1259 1992 Unknown [id number] 2.16.840.1.757588.3.579.2. 9 1992 Unknown [id number] 2.16.840.1.150719.3.579.2. 9 1992 Unknown [id number] 2.16840.1.565980.3.579.2. 9 1992 Unknown [id number] 2.16.840.1.206429.3.579.2. 9 1992 Unknown [id number] 2.16840.1.744937.3.579.2. 9 1992 Unknown [id number] 2.16840.1.554448.3.579.2. 1259 Social History Date Type Detail Facility Start: 05-17-2018 End: 06-14-2018 Tobacco smoking status [facility] Never smoker [facility] Sex Assigned At Not on file [facility] Start: 07-14-2020 Tobacco smoking status NHIS Current some day smoker [facility] Start: 07-14-2020 Alcohol intake Current non-dr conservation scientist of alcohol (finding) [facility] Exposure to SARS-CoV -2 (event) Not sure [facility] Assessments Note Patient: SABRINA VELASQUEZ Age: [...] for home later today Logan Driscoll MD [phone] SURGERY PROGRESS NOTE SUBJECTIVE: Patient denies abd [...] FoundDocuments on File Type Date Recorded Patient Elevator Supervisor Expl 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 Roney Zhong [place] 09/16/18 14:45 [address] [place]. [address] PATIENT INFORMATION Name: SABRINA VELASQUEZ Address: [address] [place] [address] Age: 28 Years Phone: [phone] : 1990 12:00 MRN: [facility])-[id number] Sex: Female Race: White Ethnicity: Declined Admitted From: Clinic or [facility] Medical Service: Surgery Nurse Unit/Bed: (AL) [facility] N/A Admit Date: 09/16/2018 13:46 PCP: [...] to your follow up appointments. Roney Zhong [place] 03/01/19 18:42 [address] [place]. [address] PATIENT INFORMATION Name: SABRINA VELASQUEZ Address: [address] [place] [address] Age: 29 Years Phone: [phone] : 1990 12:00 [id number] Sex: Female Race: White Ethnicity: Declined Admitted From: Clinic or [facility] Medical Service: Surgery Nurse Unit/Bed: (AL) 7TWH 7U58-85 Admit Date: 02/28/2019 08:18 PCP: Omid Killian MD PHYSICIANS INVOLVED WITH CARE Attending Physicians: Marcellus Driscoll MD - Surgery Admitting Physician: Marcellus Driscoll MD - Surgery Primary Care Physician:Omid Killian MD, - Consults: None found Problems Active Morbid (severe) obesity due to excess calories Obesity IBS (irritable bowel syndrome) GERD (gastroesophageal reflux (more content not included)... Note Patient: SABRINA VELASQUEZ MRN : ([facility])-[id number] Age: 29 years Sex: Female : 1990 [...] GERD, IBS, and heart murmur presented to [facility] on 02/28/2019 for an elective robotically assisted laparoscopic [place]-en-Y gastric bypass with Dr. catie lawrence had an extensive preoperative workup. Patient tolerated the procedure well and was transferred to PACU in stable condition where she had an uneventful recovery. His then tra (more content not included)... Note Patient: SABRINA VELASQUEZ MRN : ([facility])-[id number] Age: 29 years Sex: Female : 1990 [...] for home later today Logan Driscoll MD [phone] SURGERY PROGRESS NOTE SUBJECTIVE: Patient denies abd [...] (02/28 12:00 (more content not included)... Note [facility] Patient Name: Sabrina Velasquez Procedure Date: [...] not included)... Note Patient: SABRINA VELASQUEZ MRN: ([facility])-[id number] Age: 28 years Sex: Female : 1990 Associated Diagnoses: None Author: Kasie Camacho CRNA Supervising Physician Comments Documentation By: Certified Registered Nurse Orthodontist. Subjective Subjective: Patient participated in the evaluation: [...] concluded. Note Patient: SABRINA VELASQUEZ MRN : ([facility])-[id number] Age: 29 years Sex: Female : 1990 [...] (more content not included)... Procedure Findings Note Roney Zhong [facility] GI Patient Name: Sabrina Velasquez Procedure Date: [...] not included)... Note Patient: SABRINA VELASQUEZ MRN: [facility]-[id number] Age: 28 years Sex: Female : 1990 Associated Diagnoses: None Author: Kasie Camacho CRNA Supervising Physician Comments Documentation By: Certified Registered Nurse Orthodontist. Subjective Subjective: Patient participated in the evaluation: [...] concluded. Note Patient: SABRINA VELASQUEZ MRN : [facility]-[id number] Age: 29 years Sex: Female : 1990 [...] sent through Care Everywhere. * Miscarriage: Threatened (Danish) documented in this encounter Additional Source Comments [...] nondistended Alicia Hudson MD ED Attending Physician [facility] Emergency Department documented in this encounter INFORMATION SOURCE (unrecogn ized section and content) DATE CREATED AUTHOR 06/15/2018 [facility] DATE CREATED AUTHOR AUTHOR'S ORGANIZ ATION 08/09/2019 [facility] DATE CREATED AUTHOR AUTHOR'S ORGANIZ ATION 12/27/2020 [facility] DATE CREATED AUTHOR AUTHOR'S ORGANIZ ATION 06/15/2024 [facility] EPIC Reason for Visit (unrecogniz ed section and content) Reason Comments Vaginal Bleeding Chris Pate PA-C - 07/14/2020 10:43 AM EDTWDorinda roblero RN - 07/14/2020 10:07 AM EDTWDorinda roblero RN - 07/14/2020 10:04 AM EDT ED Notes (unrecognized secti on and content) ED PROVIDER NOTE [facility] EMERGENCY DEPARTMENT NAME: Sabrina Velasquez AGE: 30 y.o. : 1990 VISIT DATE: 07/14/2020 CSN: [id number] PCP: Omid Killian MD Clinical Impression: 1. Threatened ED Disposition ED Disposition Condition Comment Discharge Stable Sabrina Velasquez discharged to home/self care in stable condition. Follow-up Information 1. Roni Clemens MD. Specialty: Obstetrics/Gynecology Why: For recheck of today's symptoms [address] [facility] [address] 2. [facility] Emergency Department. Specialty: Emergency Medicine Why: As needed, If symptoms worsen [address] [facility] [address] Contact information for after-discharge care Follow-up information [...] this point clinically. Patient has appointment with [employer] [facility] on Thursday. Considered implantation bleeding, threatened , [...] reports she is scheduled to see her [employer] [facility] Dr. Clemens next week. Patient denies any [...] file Gets together: Not on file Attends mandaeism service: Not on file Active member of [...] nursing note reviewed. Exam conducted with a car jockey present. Constitutional: Appearance: Normal appearance. HENT: Head: [...] Colorless, Yellow Clarity, Urine Clear Clear Specific [place] 1.011 1.005 - 1.025 pH, Urine 7.0 [...] bleeding, spontaneous of is believed most likely. [facility] Workstation ID: [id number] Procedures The [...] pre-hypertension or hypertension. . Chris Pate PA-C [facility] Emergency Department Chris Pate PA-C 07/14/20 [...] BE BASED ON THE PRIMARY CLINICAL RECORDS. [employer] [facility]. provides no warranty or guarantee of the accuracy or completeness of information in this document.
--- NOTE | 2024-06-17 09:24 | US_ITS ---
[address] [address] Patient Name: SABRINA VELASQUEZ MRN: [id number] date: 1990 Sex: F Assigned Patient Location: [facility] Current Patient Location: [facility] Accession/Order Number: [id number] Exam Date: 06/17/2024 09:42 Report Date: 06/17/2024 10:32 At the request of: LIA BENAVIDES Procedure: US OB BPP w non-stress EXAMINATION: US OB BPP w non-stress HISTORY:Third trimester Z34.93 COMPARISON: Ultrasound OB biophysical 06/10/2024 TECHNIQUE: Ultrasound biophysical profile was performed in the radiology department. BREATHING MOVEMENTS: 2 GROSS BODY MOVEMENTS: 2 TONE: 2 QUALITATIVE AMNIOTIC FLUID VOLUME: 2 PRESENTATION: CEPHALIC HEART RATE: 133.66 bpm AMNIOTIC FLUID VOLUME: 19.62 cm GESTATIONAL AGE: 38 weeks 0 days US/US OB BPP w non-stress IMPRESSION: Total biophysical profile score: 8 Electronically authenticated by: SILVINA KUMARI Date: 06/17/2024 10:32
[2024-06-17 09:26] VITALS: BP 130/78; PULSE 57
[2024-06-17 09:27] VITALS: TEMP 36.3
== END 2024-06-17 11:58 | disposition home or self-care (01) ==
LOC: US 08:45 → FBC 09:14
PROVIDERS: Visit Provider Obstetrics & Gynecology
DX: Z34.93 Encounter for supervision of normal pregnancy, unspecified, third trimester (principal); Z3A.38 38 weeks gestation of pregnancy
CPT/HCPCS: 76818

== ENCOUNTER 2024-06-19 10:14 | Observation (INO) | payer OTHER, SELFPAY ==
--- OUTSIDE RECORDS SUMMARY | 2024-06-19 10:10 | XMS_ITS | CCD ---
Author Organization [facility] Inform ion Partnership [facility] Care Team Providers Care Mechanical Assembly Name Role Phone Killian, Omid Sandadi Unavailable [...] Test Name Value Interpretation Reference Range Facility [facility] VERIFICATIONon 020 ABO and Rh group Nom (Bld) A Negative [facility] ABO and Rh group Nom (Bld) ABO/Rh Verification [facility] BMPon 07-14-2020 Anion gap [Moles/Vol] 6 mmol/L Low 10 - 20 mmol/L [facility] Calcium [Mass/Vol] 9.0 mg/dL 8.4 - 10. 2 mg/dL [facility] Chloride [Moles/Vol] 113 mmol/L High 98 - 108 mmol/L [facility] Creatinine [Mass/Vol] 0.64 mg/dL 0.40 - 1.10 [facility] GFR/1.73 sq M predicted among non-blacks MDRD (S/P/Bld) [Vol rate/Area] The eGFR should be used for monitoring renal function only and not for medication dosing. [facility] GFR/1.73 sq M.predicted CKD-EPI (S/P/Bld) [Vol rate/Area] 122 >=60 mL/min/1.73 m2 [facility] Glucose [Mass/Vol] 71 mg/dL 65 - 99 mg/dL [facility] HCO3 [Moles/Vol] 28 mmol/L 21 - 32 mmol/L [facility] Potassium [Moles/Vol] 3.9 mmol/L 3.5 - 5.1 mmol/L [facility] Sodium [Moles/Vol] 143 mmol/L 135 - 145 mmol/L [facility] Urea nitrogen [Mass/Vol] 8 mg/dL 8 - 25 mg/dL [facility] Urea nitrogen/Creatinine [Mass ratio] 12.5 mg/mg [facility] CBC WITH AUTO DIFFERENTIALon 07-14-2020 Basophils (Bld) [#/Vol] 0.03 10*3/uL [facility] Basophils/100 WBC (Bld) 0.4 % [facility] Eosinophils (Bld) [#/Vol] 0.10 10*3/uL [facility] Eosinophils/100 WBC (Bld) 1.5 % [facility] Erythrocyte distribution width (RBC) [Entitic vol] 12.3 % 11.6 - 14.8 % [facility] Hematocrit (Bld) [Volume fraction] 39.2 % 36 - 46 % [facility] Hemoglobin (Bld) [Mass/Vol] 13.6 g/dL 12 - 16 g/dL [facility] Immature granulocytes (Bld) [#/Vol] 0.02 10*3/uL [facility] Immature granulocytes/100 WBC (Bld) 0.30 % [facility] Comment on above: The IG parameter is the percentage of metamyelocytes, myelocytes and promyelocytes. An immature granulocyte count (IG) of 1% or more suggests the possibility of infection, an IG count of 3% is very likely related to an infection. Lymphocytes (Bld) [#/Vol] 1.95 10*3/uL [facility] Lymphocytes/100 WBC (Bld) 29.2 % [facility] MCH (RBC) [Entitic mass] 30.4 pg 26 - 34 pg [facility] MCHC (RBC) [Mass/Vol] 34.7 g/dL 31 - 37 g/dL [facility] MCV (RBC) [Entitic vol] 87.7 fL 80 - 100 fL [facility] Monocytes (Bld) [#/Vol] 0.48 10*3/uL [facility] Monocytes/100 WBC (Bld) 7.2 % [facility] Neutrophils (Bld) [#/Vol] 4.09 10*3/uL [facility] Neutrophils/100 WBC (Bld) 61.4 % [facility] Nucleated RBC (Bld) [#/Vol] 0.00 10*3/uL [facility] Nucleated RBC/100 WBC (Bld) [Ratio] 0.0 % [facility] Platelet mean volume (Bld) [Entitic vol] 11.8 fL 9.4 - 12.4 fL [facility] Platelets (Bld) [#/Vol] 151 10*3/uL [facility] RBC (Bld) [#/Vol] 4.47 10*6/uL [facility] WBC (Bld) [#/Vol] 6.67 10*3/uL [facility] Otheron 07-14-2020 Extra Tube Hold for add-ons. [facility] Comment on above: Auto resulted. Interpretation and review of laboratory results Abnormal [facility] Type and Screenon 07-14-2020 ABO and Rh group Nom (Bld) A Negative [facility] Blood group antibody screen Ql Negative [facility] Specimen Expires 07/17/2020 23:59 EST [facility] URINALYSISon 07-14-2020 Bacteria Auto Ql (U) None Seen None Seen /hpf [facility] Bilirubin Ql (U) Negative Negative [facility] th Clarity Refractometry automated (U) Clear Clear [facility] Color (U) Yellow Colorless, Yellow [facility] Epithelial cells.squamous Auto (Urine sed) [#/Area] 5 High [facility] Glucose Auto test strip (U) [Mass/Vol] Negative Negative mg/dL [facility] Hemoglobin Auto test strip Ql (U) Moderate Abnormal Negative [facility] Interpretation and review of laboratory results Abnormal [facility] Ketones (U) [Mass/Vol] Negative Negative mg/dL [facility] Leukocyte esterase Auto test strip Ql (U) Trace Abnormal Negative [facility] Mucus Auto (Urine sed) [#/Area] Rare None Seen, Rare /lpf [facility] Nitrite Auto test strip Ql (U) Negative Negative [facility] pH (U) 7.0 [pH] [facility] Protein (U) [Mass/Vol] Negative Negative mg/dL [facility] RBC Auto (Urine sed) [#/Area] 2 [facility] Specific gravity (U) [Rel density] 1.011 [facility] Urobilinogen (U) [Mass/Vol] <2.0 <2.0 mg/dL [facility] WBC Auto (Urine sed) [#/Area] 2 [facility] Microscopic examination is performed on all urinalysis samples and only positive findings are reported. The test for blood on the chemical analytic portion of urinalysis may also be positive due to hemoglobinuria and myoglobinuria and if red blood cells are present they are quantified by microscopic examination. [facility] OB 1ST TRIMESTER WITH TRA NSVAGINAL [...] bleeding, spontaneous of is believed most likely. [facility] Workstation ID: [id number] Dictated by: SHAY FERNANDEZ on Sat Jul 14, 2020 12:00:51 PM EDT Transcribed by: PREETI VILLALTA on Sat Jul 14, 2020 12:07:08 PM EDT Finalized by: SHAY FERNANDEZ on Sat Jul 14, 2020 12:57:25 PM EDT Normal Comment on above: Order Comment: Injur y/Trauma [...] limits. No free peritoneal fluid is seen. [facility] 1. Normal study. 2. With a positive beta hCG, this is a of unknown location. Clinical correlation including serial beta hCG levels is needed differentiate the possibilities which include extremely early , spontaneous of recent , or ectopic gestation which is not directly visualized. With a history of bleeding, spontaneous of is believed most likely. [facility] Workstation ID: [id number] [facility] Interface, Rad In Roblesi Speechq - [...] bleeding, spontaneous of is believed most likely. [facility] Workstation ID: [id number] [facility] VAGINITIS DNA PROBESon 07-14 Olga sp DNA Probe+sig amp Ql (Vag fld) Negative Negative [facility] G. vaginalis DNA Probe+sig amp Ql (Vag fld) Negative Negative [facility] Interpretation and review of laboratory results Normal [facility] T. vaginalis DNA Probe+sig amp Ql (Vag fld) Negative Negative [facility] hCG, Blood, QUANTitativeon 0 07-14-2020 Beta HCG ( test) Ql (U) Males and non females: <5 mIU/mL Females during : 3-4 weeks 9-130 mIU/mL 4-5 weeks 75-2600 mIU/mL 5-6 weeks 850-20,800 mIU/mL 6-7 weeks 4000-100,200 mIU/mL 7-12 weeks 11,500-289,000 mIU/mL 12-16 weeks 18,300-137,000 mIU/mL 16-29 weeks 1,400-53,000 mIU/mL 29-41 weeks 940-60,000 mIU/mL [facility] HCG Qn 438 m[IU]/mL High [facility] Basic Metabolic Panelon 04-0 Anion gap [Moles/Vol] 7.0 mmol/L Normal 6.0-18.0 [facility] Comment on above: Performed By: #### 2 4321-2, 53145-5, 13566-7k8, 1988- ####[facility] [address], [place] Calcium [Mass/Vol] 8.6 mg/dL Low 8.9-10.3 [facility] Comment on above: Performed By: #### 2 4321-2, 68667-7, 33917-7n2, 1988-03 ####[facility] [address], [place] Chloride [Moles/Vol] 107 mmol/L Normal 98-107 [facility] Comment on above: Performed By: #### 2 4321-2, 07056-7, 47226-2v3, 1988-03 ####[facility] [address], [place] CO2 [Moles/Vol] 24 mmol/L Normal 22-32 [facility] Comment on above: Performed By: #### 2 4321-2, 63523-6, 00625-4u5, 1988-03 ####[facility] [address], [place] Creatinine [Mass/Vol] 0.67 mg/dL Normal 0.60-1.30 [facility] Comment on above: Performed By: #### 2 4321-2, 65369-1, 41360-8p5, 1988-03 ####[facility] [address], [place] Glucose [Mass/Vol] 105 mg/dL High 70-99 [facility] Comment on above: Result Comment: U pdated ADA Reference Range A normal fasting glucose concentration is less than 100 mg/dL. An impaired fasting glucose concentration is 100-125 mg/dL. A provisional diagnosis of diabetes mellitus can be made when a fasting glucose concentration is greater than 125 mg/dL. Performed By: #### 2 4321-2, 85016-7, 78686-5g2, 1988-03 ####[facility] [address], [place] Potassium [Moles/Vol] 4.1 mmol/L Normal 3.6-5.1 [facility] Comment on above: Performed By: #### 2 4321-2, 38130-4, 43060-3x5, 1988-03 ####[facility] [address], [place] Sodium [Moles/Vol] 138 mmol/L Normal 136-145 [facility] Comment on above: Performed By: #### 2 4321-2, 95971-1, 02910-8h2, 1988-03 ####[facility] [address], [place] Urea nitrogen (BldV) [Mass/Vol] 8 mg/dL Normal 8-20 [facility] Comment on above: Performed By: #### 2 4321-2, 16640-5, 88005-5j4, 1988-03 ####[facility] [address], [place] C-Reactive Proteinon 019 CRP [Mass/Vol] 3.2 mg/dL High <1.0 [facility] Comment on above: Performed By: #### 2 4321-2, 49896-1, 68819-4h9, 1988-03 ####[facility] [address], [place] CBCon 03-01-2019 Erythrocyte distribution width (RBC) [Entitic vol] 14.3 % Normal 11.0-14.8 [facility] Comment on above: Performed By: #### 2 4317-0 ####[place] [address], [place] Hematocrit (Bld) [Volume fraction] 37.5 % Normal 35.0-45.0 [facility] Comment on above: Performed By: #### 2 7-0 ####[place] [address], [place] Hemoglobin (Bld) [Mass/Vol] 12.5 g/dL Normal 12.0-16.0 [facility] Comment on above: Performed By: #### 2 4317-0 ####[facility] [address], [place] MCH (RBC) [Entitic mass] 28.1 Picograms Normal 27.0-34.0 [facility] Comment on above: Performed By: #### 2 4317-0 ####[place] [address], [place] MCHC (RBC) [Mass/Vol] 33.3 g/dL Normal 32.0-36.0 [facility] Comment on above: Performed By: #### 2 4317-0 ####[place] [address], [place] MCV (RBC) [Entitic vol] 84.6 fL Normal 80.0-97.0 [facility] Comment on above: Performed By: #### 2 4317-0 ####[place] [address] [place] Platelet mean volume (Bld) [Entitic vol] 10.5 fL Normal 6.2-12.1 [facility] Comment on above: Performed By: #### 2 4317-0 ####[place] [address] Platelets (Bld) [#/Vol] 231 thou/mcL Normal 142-424 [facility] Comment on above: Performed By: #### 2 4317-0 ####[facility] RBC (Bld) [#/Vol] 4.43 million/mcL Normal 3.80-5.10 [place] Comment on above: Performed By: #### 2 4317-0 ####[address] WBC (Bld) [#/Vol] 12.7 thou/mcL High 4.6-10.2 [facility] Comment on above: Performed By: #### 2 4317-0 ####[address] GFRaaon 03-01-2019 GFR/1.73 sq M predicted among blacks MDRD (S/P/Bld) [Vol rate/Area] mL/min/{1.73_m2} Normal [facility] Comment on above: Result Comment: The MDRD equation has not been validated for those over 70 years, women, patients with serious co-morbid conditions, or with extremes of body size, muscle mass of nutritional status. Performed By: #### 2 4321-2, 49895-6, 59182-4t5, 1987- ####[place] [address], [place] GFRbbon 03-01-2019 GFR/1.73 sq M predicted among non-blacks MDRD (S/P/Bld) [Vol rate/Area] mL/min/{1.73_m2} Normal [facility] Comment on above: Performed By: #### 2 4321-2, 80538-6, 57757-9w7, 1987- ####[facility] [address], [place] Glucose POCT (Uploaded)on Glucose [Mass/Vol] 87 mg/dL Normal 70-99 [facility] Comment on above: Result Comment: Nadia tment ranges and critical values established by Patient Care Services. All follow-up actions were taken by Patient Care Services. Performed By: #### 2 430-8 ####[facility] Glucose [Mass/Vol] 93 mg/dL Normal 70-99 [facility] Comment on above: Result Comment: Nadia tment ranges and critical values established by Patient Care Services. All follow-up actions were taken by Patient Care Services. Performed By: #### 2 430-8 ####[facility] Glucose [Mass/Vol] 95 mg/dL Normal 70-99 [facility] Comment on above: Result Comment: Nadia tment ranges and critical values established by Patient Care Services. All follow-up actions were taken by Patient Care Services. Performed By: #### 2 430-8 ####[facility] Glucose [Mass/Vol] 123 mg/dL High 70-99 [facility] Comment on above: Result Comment: Nadia tment [...] SABRINA VELASQUEZ/Sex: 1990 Female Med Rec #: [id number] Physician: Yamila URBINA , Marcellus Ramsay Financial #: [id number] Pt. Type: I Room/Bed: [facility] Admit/Disch: 02/28/19 08:18:00 - Institution: [place] [facility] OR Main PACU I Case Times Entry 1 In PACU I 02/28/19 14:06:00 Ready for PACU I 02/28/19 15:15:00 Discharge Discharge from PACU 02/28/19 15:15:00 PACU I Discharge NA I Delay Reason Last Modified By: Elissa Shaffer RN 02/28/19 15:45:35 [facility] OR Main PACU I Case Attendees Entry 1 Case Attendee Elissa Shaffre RN RN Last Modified By: Elissa Shaffer RN 02/28/19 14:07:29 Finalized By: Sherrie Rendon RN Document Signatures Signed By: Elissa Shaffer RN 02/28/19 15:45 Sherrie Rendon RN 03/01/19 07:03 Normal [facility] Patient Summaryon 03-01-2019 Patient Summary PATIENT DISCHARGE INSTRUCTIONS If you are having an emergency and are not able to reach your physician, CALL 911 or go to the nearest emergency room and take this document with you. [facility] 03/01/19 18:42 [address] [place]. [address] PATIENT INFORMATION Name: SABRINA VELASQUEZ Address: [address] [place] [id number] Age: 29 Years Phone: [phone] : 1990 12:00 MRN: ([facility])-[id number] Sex: Female Race: White Ethnicity: Declined Admitted From: Clinic or [facility] Medical Service: Surgery Nurse Unit/Bed: ([place]) 7T 3E02-45 Admit Date: 02/28/2019 08:18 PCP: Killian Omid URBINA PHYSICIANS INVOLVED WITH CARE ------ Attending Physicians: Yamila URBINA , Marcellus Ramsay - Surgery Admitting Physician: Marcellus Driscoll MD - Surgery Primary Care Physician:Omid Killian MD, - Consults: None found FOLLOW-UP APPOINTMENTS: Provider: Specialty: Address: Date: Marclelus Driscoll MD Surgery [address] [facility] [address] [place] [address] (1) 03/08/19 01:45 pm Comment: Please follow-up at your pre-scheduled appointment. Provider: Specialty: Address: Date: Omid Killian MD [address] [place] [address] (1) Follow-up as needed Provider: Specialty: Address: Date: Post-Op Nutrition Class [address] [facility] [address] 03/22/19 Comment: Please call [phone] for more information or to re-schedule. ALLERGIES: [...] doses are changed, or new medications (including sswr-epj-ioyyujh products) are added. Ask your doctor if [...] diet. Follow recommendations from your surgeon and clean room operator regarding you diet. Refer to nutrition [...] doctor before taking any supplements, herbal or zjzu-mcq-xjxqugw medications. Call your physician if any questions [...] suicide hotline, anytime day or night, at 7-151-908-LQNB. Important information about accessing your health information through the [facility] patient portal If you initiated the self-registration process for [facility] during your stay, please check your personal email for an invitation to enroll in [facility] and complete the steps outlined in the email. If you would prefer to enroll while in the hospital, ask a member of your care team. We would be happy to assist you. If you have already enrolled in [facility], go to [email or web address] to login and access your health information. Thank you for choosing [facility]. PATIENT EDUCATION Gastric Bypass Surgery, Care After [...] of caffeine can cause dehydration. ?? A clean room operator may also give you specific instructions. [...] 06/30/2005 Document Revised: 12/07/2015 Document Reviewed: 04/08/2011 [employer] Interactive Patient Education ??2016 [employer] Gastric Bypass Discharge Instructions 1. Follow-up [...] dietitian for post-operative class at 2 weeks [phone] ? Call Bariatric Nurse Navigator [phone] with any further questions or concerns Call [phone] if you have difficulty breathing or chest [...] provided above is for informational purposes only. [facility] does not promote, condone or endorse all the values expressed herein. The values or opinions they express with regard to the use of artificial contraception are not consistent with the teachings of the [employer] and the Ethical and Mormon Directives for [employer] [facility]. If any of these instructions are different from what your doctor tells you, follow your doctor's orders. If you smoke, you should quit. For more information, talk with your doctor or call [phone] ( ). PATIENT DISCHARGE INSTRUCTION Signature Page for: SABRNIA VELASQUEZ Date/Time: 03/01/2019 18:42:02 A Clinician has explained the information on my discharge instructions and has provided me with a copy. My questions have been answered to my satisfaction. Patient Signature Date/Time Responsible Party Date/Time Relationship to Patient Clinician Signature Date/Time Normal [facility] Glucose POCT (Uploaded)on Glucose [Mass/Vol] 140 mg/dL High [address] [place] [address] Comment on above: Result Comment: Nadia tment ranges and critical values established by Patient Care Services. All follow-up actions were taken by Patient Care Services. Performed By: #### 2 430-8 ####[facility] Glucose [Mass/Vol] 127 mg/dL High [address] [place] [address] Comment on above: Result Comment: Nadia tment ranges and critical values established by Patient Care Services. All follow-up actions were taken by Patient Care Services. Performed By: #### 2 430-8 ####[facility] Glucose [Mass/Vol] 141 mg/dL High [address] [place] [address] Comment on above: Result Comment: Nadia tment ranges and critical values established by Patient Care Services. All follow-up actions were taken by Patient Care Services. Performed By: #### 2 430-8 ####[facility] Glucose [Mass/Vol] 164 mg/dL High [address] [place] [address] Comment on above: Result Comment: Nadia tment ranges and critical values established by Patient Care Services. All follow-up actions were taken by Patient Care Services. Performed By: #### 2 430-8 ####[facility] OR Nursingon 02-28-2019 OR Nursing [facility] OR Nursing Record Summary Primary Physician: Marcellus Driscoll MD Finalized Date/Time: 02/28/19 14:10:30 Pt. Name: SABRINA VELASQUEZ/Sex: 1990 Female Med Rec #: [id number] Physician: Marcellus Driscoll MD Financial #: [id number] Pt. Type: I Room/Bed: / Admit/Disch: 02/28/19 [...] [place] Role Performed Primary Surgeon Anesthesiologist Nurse Lead Technician Time In 02/28/19 11:17:00 02/28/19 11:17:00 [...] Guaman RN , Litzy Garcia Role Performed matrix bath operator RN First Scrub Time In 02/28/19 11:17:00 02/28/19 11:17:00 02/28/19 11:17:00 Time Out 02/28/19 14:05:00 02/28/19 14:05:00 02/28/19 14:05:00 Procedure Bypass Gastric Bypass Gastric Bypass Gastric Robot(N/A) Robot(N/A) Robot(N/A) Attendee Comment LUNCH [id number] LUNCH [id number] lunch [id number] Relief Reason Last Modified By: Abner MARTIN , Disha Levine RN , Disha Levine RN , Disha Aiken 02/28/19 14:09:25 02/28/19 14:09:25 02/28/19 14:09:25 Entry 7 Entry 8 Entry 9 Case Attendee [facility] RN , Swetha Rao Case, Attendee Other Role Performed matrix bath operator First Scrub Mechanical Maintenance Technician Time In 02/28/19 11:48:00 02/28/19 11:57:00 02/28/19 11:17:00 Time Out 02/28/19 12:40:00 02/28/19 12:53:00 02/28/19 14:05:00 Procedure Bypass Gastric Bypass Gastric Bypass Gastric Robot(N/A) Robot(N/A) Robot(N/A) Attendee Comment [place] MIRANDA - INTUITIVE Relief Reason Last Modified By: Abner MARTIN , Disha Levine RN , Disha Duke RN 02/28/19 14:09:25 02/28/19 14:09:25 02/28/19 14:09:25 [facility] OR General Case Compressor Assembler 1 OR CO W 11 ASA Class [...] Arrival? No 16FR TEMP SEN W/URINE METER [id number] Inserted By Oly Guaman RN at End [...] OR Temperature Regulation Entry 1 Unit ID [id number] Site UPPER BODY Last Modified By: Gissell [...] By: Disha Levine RN 02/28/19 14:10 Normal [facility] PreOp Nursingon 02-28-2019 PreOp Nursing [facility] PreOp Nursing Record Summary Primary Physician: Marcellus Driscoll MD Finalized Date/Time: 02/28/19 12:08:12 Pt. Name: SABRINA VELASQUEZ/Sex: 1990 Female Med Rec #: [id number] Physician: Marcellus Driscoll MD Financial #: [id number] Pt. Type: I Room/Bed: / Admit/Disch: 02/28/19 [...] By: Gissell Joshi RN 02/28/19 12:08 Normal [facility] CBC with Differentialon 01-29 Basophils (Bld) [#/Vol] 0.00 thou/mcL Normal 0.00-0.20 [facility] Comment on above: Performed By: #### 5 7021-8 #### [facility] [address], [place] Basophils/100 WBC (Bld) 0.4 % Normal 0.0-2.0 [facility] Comment on above: Performed By: #### 5 7021-8 #### [facility] [address] [place] Eosinophils (Bld) [#/Vol] 0.10 thou/mcL Normal 0.00-0.70 [facility] Comment on above: Performed By: #### 7021-8 #### [facility] [address], [place] Eosinophils/100 WBC (Bld) 1.5 % Normal 0.0-7.0 [facility] Comment on above: Performed By: #### 7021-8 #### [facility] [address], [place] Erythrocyte distribution width (RBC) [Entitic vol] 14.8 % Normal 11.0-14.8 [facility] Comment on above: Performed By: #### 7021-8 #### [facility] [address] [place], [place] Hematocrit (Bld) [Volume fraction] 41.4 % Normal 35.0-45.0 [facility] Comment on above: Performed By: #### 7021-8 #### [facility] [address], [place] Hemoglobin (Bld) [Mass/Vol] 13.7 g/dL Normal 12.0-16.0 [facility] [facility] Comment on above: Performed By: #### 7021-8 #### [place] [address] [place], [place] Lymphocytes (Bld) [#/Vol] 1.80 thou/mcL Normal 1.00-4.80 [facility] Comment on above: Performed By: #### 7021-8 #### [facility] [address] [place], [place] Lymphocytes/100 WBC (Bld) 21.5 % Low 22.0-44.0 [facility] Comment on above: Performed By: #### 5 7021-8 #### [place] [address], [place] MCH (RBC) [Entitic mass] 28.6 Picograms Normal 27.0-34.0 [facility] Comment on above: Performed By: #### 5 7021-8 #### [facility] [address] [place], [place] MCHC (RBC) [Mass/Vol] 33.2 g/dL Normal 32.0-36.0 [facility] Comment on above: Performed By: #### 7021-8 #### [facility] [address] [place] MCV (RBC) [Entitic vol] 86.0 fL Normal 80.0-97.0 [facility] Comment on above: Performed By: #### 7021-8 #### [facility] [address] [place], [place] Monocytes (Bld) [#/Vol] 0.60 thou/mcL Normal 0.00-0.90 [facility] Comment on above: Performed By: #### 7021-8 #### [place] [address] [place] Monocytes/100 WBC (Bld) 7.5 % Normal 0.0-12.0 [facility] Comment on above: Performed By: #### 7021-8 #### [place] [address] [place] Neutrophils (Bld) [#/Vol] 5.90 thou/mcL Normal 1.80-7.70 [facility] Comment on above: Performed By: #### 7021-8 #### [place] [address] [place] Neutrophils/100 WBC (Bld) 69.1 % Normal 40.0-70.0 [facility] Comment on above: Performed By: #### 7021-8 #### [facility] [address] [place] Platelet mean volume (Bld) [Entitic vol] 11.3 fL Normal 6.2-12.1 [facility] Comment on above: Performed By: #### 7021-8 #### [place] [address] [place] Platelets (Bld) [#/Vol] 194 thou/mcL Normal 142-424 [facility] Comment on above: Performed By: #### 7021-8 #### [facility] [address] [place] RBC (Bld) [#/Vol] 4.81 million/mcL Normal 3.80-5.10 [place] Comment on above: Performed By: #### 5 7021-8 #### [facility] [address] [place], [place] WBC (Bld) [#/Vol] 8.5 thou/mcL Normal 4.6-10.2 [facility] Comment on above: Performed By: #### 5 7021-8 #### [facility] [address] [place] Comprehensive Metabolic Pane satnam 2019 Albumin [Mass/Vol] 3.3 g/dL Low 3.5-4.8 [facility] Comment on above: Performed By: #### 2 4323-8, 68602-5i9, 15154-4 ####[place] [address], [place] ALP [Catalytic activity/Vol] 72 Units/L Normal 32-91 [facility] Comment on above: Performed By: #### 2 4323-8, 34746-6g1, 02936-9 ####[facility] [address] ALT [Catalytic activity/Vol] 18 Units/L Normal 14-63 [facility] Comment on above: Performed By: #### 2 4323-8, 47052-1d4, 90087-5 ####[facility] [address] Anion gap [Moles/Vol] 10.0 mmol/L Normal 6.0-18.0 [facility] Comment on above: Performed By: #### 2 4323-8, 01471-9r6, 03719-8 ####[place] [address] AST [Catalytic activity/Vol] 17 Units/L Normal 15-41 [facility] Comment on above: Performed By: #### 2 4323-8, 50633-7b4, 25644-2 ####[facility] [address] Bilirubin [Mass/Vol] 0.7 mg/dL Normal 0.3-1.2 [facility] Comment on above: Performed By: #### 2 4323-8, 11539-3d5, 53085-9 ####[facility] [address] Calcium [Mass/Vol] 8.5 mg/dL Low 8.9-10.3 [facility] Comment on above: Performed By: #### 2 4323-8, 72014-3r0, 19588-3 ####[facility] [address] Chloride [Moles/Vol] 104 mmol/L Normal 98-107 [facility] Comment on above: Performed By: #### 2 4323-8, 53383-0d6, 59784-7 ####[facility] [address] CO2 [Moles/Vol] 22 mmol/L Normal 22-32 [facility] Comment on above: Performed By: #### 2 4323-8, 64239-2c1, 82293-6 ####[facility] [address] Creatinine [Mass/Vol] 0.79 mg/dL Normal 0.60-1.30 [facility] Comment on above: Performed By: #### 2 4323-8, 30872-4y1, 80238-3 ####[facility] [address] Glucose [Mass/Vol] 93 mg/dL Normal 70-99 [facility] Comment on above: Result Comment: U pdated ADA Reference Range A normal fasting glucose concentration is less than 100 mg/dL. An impaired fasting glucose concentration is 100-125 mg/dL. A provisional diagnosis of diabetes mellitus can be made when a fasting glucose concentration is greater than 125 mg/dL. Performed By: #### 2 4323-8, 32950-5y7, 61374-8 ####[facility] [address] Potassium [Moles/Vol] 4.1 mmol/L Normal 3.6-5.1 [facility] Comment on above: Performed By: #### 2 4323-8, 02515-9r0, 03562-6 ####[facility] [address] Protein [Mass/Vol] 6.0 g/dL Low 6.1-7.9 [facility] Comment on above: Performed By: #### 2 4323-8, 68118-8s9, 41167-6 ####[facility] [address] [place] Sodium [Moles/Vol] 136 mmol/L Normal 136-145 [facility] Comment on above: Performed By: #### 2 4323-8, 92101-0q0, 78943-3 ####[facility] [address] [place] Urea nitrogen (BldV) [Mass/Vol] 13 mg/dL Normal 8-20 [facility] Comment on above: Performed By: #### 2 4323-8, 61435-3c1, 70713-1 ####[place] [address] [place] GFRaaon 2019 GFR/1.73 sq M predicted among blacks MDRD (S/P/Bld) [Vol rate/Area] mL/min/{1.73_m2} Normal [facility] Comment on above: Result Comment: The MDRD equation has not been validated for those over 70 years, women, patients with serious co-morbid conditions, or with extremes of body size, muscle mass of nutritional status. Performed By: #### 2 4323-8, 64123-2q3, 74955-0 ####[facility] [address] [place] GFRbbon 2019 GFR/1.73 sq M predicted among non-blacks MDRD (S/P/Bld) [Vol rate/Area] mL/min/{1.73_m2} Normal [facility] Comment on above: Performed By: #### 2 4323-8, 28426-0c5, 54488-3 ####[facility] [address] Glycohemoglobin (HGB A1C) Emanuel guardado 2019 HbA1c (Bld) [Mass fraction] 5.0 % tl hgb Normal <5.6 [facility] Comment on above: Result Comment: U pdated ADA Reference Range HbA1c values of 5.7-6.4 percent indicate an increased risk for developing diabetes mellitus. HbA1c values greater than or equal to 6.5 percent are diagnostic of diabetes mellitus. For diagnosis of diabetes in individuals without unequivocal hyperglycemia, results should be confirmed by repeat testing. Performed By: #### 4 549-2 ####[facility], [address] [place] [address]. Partial Thromboplastin Time (aPTT)on 2019 aPTT Coag (PPP) [Time] 29.6 Sec Normal 23.6-35.3 [facility] Comment on above: Performed By: #### 3 173-2, 5902-2 ####[facility], [address] [place] [address]. Prothrombin Timeon 9 INR Coag (Bld) [Relative time] 1.00 {INR} Normal [facility] Comment on above: Result Comment: The recommended therapeutic INR range for most cardiac indications is 2.0-3.0. For high intensity therapy(ie.mechanical heart valves), the recommended range is 2.5-3.5. Performed By: #### 3 173-2, 5902-2 ####[facility], [address] [place] [address]. PT Coag (PPP) [Time] 11.5 Sec Normal 9.3-12.4 [facility] Comment on above: Performed By: #### 3 173-2, 5902-2 ####[facility], [address] [place] [address]. XR Chest 2 Viewson 9 XR Chest 2 views Two-view chest exam Indication: pre-op. Cough for the past week. COMPARISON: E 66.01 FINDINGS: The lungs are clear and the costophrenic angles are sharp. The cardiomediastinal silhouette and bones are normal. IMPRESSION: Normal chest. [facility] thanks you for the opportunity to care for your patient. Workstation ID: [id number] FINAL REPORT Dictated By: Jean Hull MD 2019 08:47 Assigned Physician: Jean Hull MD Reviewed and Electronically Signed By: Jean Hull MD 2019 08:48 Transcribed by: GREGORY 2019 08:47 Technologist: SHAKA Carranza [facility] OR Nursingon 09-17-2018 OR Nursing CO [facility] OR Nursing Record Summary Primary Physician: Tristan Dickey MD Finalized Date/Time: 09/17/18 07:39:53 Pt. Name: SABRINA VELASQUEZO.B./Sex: 1990 Female Med Rec #: [id number] Physician: Financial #: [id number] Pt. Type: I Room/Bed: / Admit/Disch: 09/16/18 [...] Wolf DO Role Performed Primary Surgeon Nurse Lead Technician Anesthesiologist Time In 09/16/18 14:20:00 09/16/18 14:20:00 09/16/18 14:20:00 Time Out 09/16/18 14:30:00 09/16/18 14:30:00 09/16/18 14:30:00 Procedure Egd_(N/A) Egd_(N/A) Egd_(N/A) Attendee Comment Relief Reason Last Modified By: Breanna RN , Afia Carlos RN , Afia Carlos RN , Afia 09/16/18 14:31:12 09/16/18 14:31:12 09/16/18 14:31:12 Entry 4 Entry 5 Case Attendee Breanna RN , Afia Beranbe RN , Rosalio Cohn matrix bath operator Supervisor Die Casting Time In 09/16/18 14:20:00 09/16/18 14:20:00 Time Out 09/16/18 14:30:00 09/16/18 14:30:00 Procedure Egd_(N/A) Egd_(N/A) Attendee Comment Relief Reason Last Modified By: Breanna RN , Afia Carlos RN , Afia 09/16/18 14:31:12 09/16/18 14:31:12 CO ESTHELA Ly General Case Compressor Assembler 1 OR CO W EN 02 ASA [...] 07:39 Sherrie Rendon RN 09/17/18 07:39 Normal [facility] Post PACU Nursingon 09-17-20 Post PACU Nursing CO ESTHELA Ly PACU II Nursing Record Summary Primary Physician: Tristan Dickey MD Finalized Date/Time: 09/17/18 07:40:27 Pt. Name: SABRINA VELASQUEZ /Sex: 1990 Female Med Rec #: [id number] Physician: Financial #: [id number] Pt. Type: I Room/Bed: / Admit/Disch: 09/16/18 [...] 07:35 Sherrie Rendon RN 09/17/18 07:40 Normal [facility] PreOp Nursingon 09-17-2018 PreOp Nursing CO [facility] PreOp Nursing Record Summary Primary Physician: Tristan Dickey MD Finalized Date/Time: 09/17/18 07:36:42 Pt. Name: FRANCISCO VELASQUEZEE /Sex: 1990 Female Med Rec #: [id number] Physician: Financial #: [id number] Pt. Type: I Room/Bed: / Admit/Disch: 09/16/18 13:46:00 - 09/16/18 15:20:00 Institution: [facility] PreOp Case Times Entry 1 PreOp [...] 07:36 Sherrie Rendon RN 09/17/18 07:36 Normal [facility] Patient Summaryon 09-16-2018 Patient Summary PATIENT DISCHARGE INSTRUCTIONS If you are having an emergency and are not able to reach your physician, CALL 911 or go to the nearest emergency room and take this document with you. [facility] 09/16/18 14:45 [address] [place]. [address] PATIENT INFORMATION Name: SABRINA VELASQUEZ Address: [address] [place] [address] Age: 28 Years Phone: [phone] : 1990 12:00 MRN: ([id number] Sex: Female Race: White Ethnicity: Declined Admitted From: Clinic or [facility] Medical Service: Surgery Nurse Unit/Bed: (KYRosa Maria ChaconTAMIKO N/A Admit Date: 09/16/2018 13:46 [...] doses are changed, or new medications (including tczt-bud-kkvnmsb products) are added. Ask your doctor if [...] suicide hotline, anytime day or night, at 3-515-882-CLVO. Important information about accessing your health information through the [facility] patient portal If you initiated the self-registration process for [employer] during your stay, please check your personal email for an invitation to enroll in [employer] and complete the steps outlined in the email. If you would prefer to enroll while in the hospital, ask a member of your care team. We would be happy to assist you. If you have already enrolled in [employer], go to [email or web address] to login and access your health information. Thank you for choosing [employer]. PATIENT EDUCATION Esophagogastroduodeno scopy, Care After Refer [...] 11/02/2013 Document Revised: 12/07/2015 Document Reviewed: 11/02/2013 [employer] Interactive Patient Education ?2016 [employer] VIRUSES OR BACTERIA: WHAT'S GOT YOU [...] Relationship to Patient Clinician Signature Date/Time Normal [facility] ECG 12 leadon 06-14-2018 Atrial Rate Invalid Interpretation Code [facility] P [place] Invalid Interpretation Code [facility] P-R Interval Invalid Interpretation Code [facility] Q-T Interval Invalid Interpretation Code [facility] Q-T Interval (corrected) Invalid Interpretation Code [facility] QRS Duration Invalid Interpretation Code [facility] QTC Calculation (Bezet) Invalid Interpretation Code [facility] R [place] Invalid Interpretation Code [facility] T [place] Invalid Interpretation Code [facility] Ventricular Rate Invalid Interpretation Code [facility] Vital Signs Date Time Vital Sign Value Performing Clinician Abbey ruiz 07-14-2020 13:00-0400 BP Diastolic 78 mm[facility]Hg[facility] 07-14-2020 13:00-0400 BP Systolic 123 mm[Hg] Alicia Hudson [facility] 07-14-2020 13:00-0400 Pulse (Heart Rate) 55 /min Alicia Hudson [facility] 07-14-2020 13:00-0400 Pulse Oximetry 100 % [facility] 07-14-2020 10:06-0400 Body Temperature 98.8 [degF] Alicia Hudson [facility] 07-14-2020 10:04-0400 BMI (Body Mass Index) 43.58 kg/m2 Alicia Hudson [facility] 07-14-2020 10:04-0400 Body weight 122.47 kg [facility] 07-14-2020 10:04-0400 Height 167.6 cm Alicia Hudson [facility] 07-14-2020 10:04-0400 Respiratory Rate 16 /min Alicia Hudson [facility] 06-14-2018 09:16-0400 BMI (Body Mass Index) 63.24 kg/m2 [facility] 06-14-2018 09:16-0400 BP Diastolic 84 mm[Hg] [facility] 06-14-2018 09:16-0400 BP Systolic 128 mm[Hg] [facility] 06-14-2018 09:16-0400 Height 167.6 cm [facility] 06-14-2018 09:16-0400 Pulse (Heart Rate) 64 /min [facility] 06-14-2018 09:16-0400 Pulse Oximetry 98 % [facility] 06-14-2018 09:16-0400 Weight 177.72 kg Josefina Tracy [facility] Encounters Encounter Date Encounter Type Care [...] Available Start: 12-10-2023 End: 12-10-2023 ambulatory LIA MAKAYAL Not Available Start: 07-14-2020 End: 07-14-2020 Emergency department patient visit OMID MARTINEZ [facility] Start: 07-14-2020 End: 07-14-2020 Emergency department patient visit Alicia Hudson Work Phone: Emergency Department Comment on above: Threatened (Primary Dx) Start: 12-13-2018 End: 12-13-2018 Patient encounter procedure Lauren Rivera [facility] D[facility] Start: 06-14-2018 End: 06-14-2018 Patient encounter PROVIDER NOT IN SYSTEM [facility] Start: 06-14-2018 End: 06-14-2018 Office outpatient new 30 minutes Provider Not In System [facility] Start: 05-17-2018 End: 05-17-2018 Patient encounter VANESSA JAVAN [facility] Start: 05-17-2018 End: 05-17-2018 Office outpatient new 30 minutes Vanessa [place] Work Phone: [facility] Procedures Date Procedure Procedure [...] vaccinatio n given Sequential Influenza Vaccine (#1) [facility] Start: 07-31-2018 Influenza vaccination [facility] Start: 07-31-2018 Influenza vaccinatio n given SEQUENTIAL INFLUENZA VACCINE (#1) [facility] Start: 07-19-2018 End: 07-19-2018 Ambulatory 07/19/2018 Office Visit Dermatology Vanessa Roland Jr., DO [address] [place] [address] [phone] [facility] Start: 06-14-2018 End: 06-14-2018 Ambulatory 06/14/2018 Office Visit Cardiology System, Provider Not In [facility], Josefina Matthew MD [address] [place] [address] [phone] [facility] Start: 02-21-2010 Hepatitis C antibody , confirmatory test Hepatitis C Screening [facility] Start: 02-21-2007 HIV screening HIV Screening [facility] Start: 02-21-1995 History and physical examination, annual for health maintenance Wellness Visit [facility] Start: 1992 Screening for malign ant neoplasm of cervix PAP SMEAR [facility] Start: 1992 [facility] End: 07-14-2020 Neisseria gonorrhoeae nucleic acid detection Chlamydia/Gonorrhoeae Amplified RNA Microbiology Routine Once for 1 Occurrences starting 07/14/2020 until 07/14/2020 [facility] Comment on above: Once for 1 Occurrenc es starting 07/14/2020 until 07/14/2020 Neisseria gonorrhoea e nucleic acid detection Chlamydia/Gonorrhoeae Amplified RNA Microbiology Routine 07/14/2020 11:20 AM EDT [facility] Payers Date Payer Category Payer Medicaid [id number] 2020 Medicaid [employer] MED[employer] xxxxxxxxxxx 2020-Present xxxxxxxxxxx [id number] 2020 Medicaid [id number] 2019 Private Health Insurance [id number] 2017 Unknown [id number] 2017 Unknown [facility] HMO/BECKY/ BEKCY PLUS/CHOICE PLUS xxxxxxxxx 2017-Present xxxxxxxxx [id number] 1992 Unknown [id number] [id number]. 903 1992 Unknown [id number] 2.16.840.1.335349.3.579.2. 1259 1992 Unknown [id number] 2.16.840.1.136202.3.579.2. 9 1992 Unknown [id number] 2.16840.1.494470.3.579.2. 9 1992 Unknown [id number] 2.16.840.1.960625.3.579.2. 9 1992 Unknown [id number] 2.16840.1.174257.3.579.2. 9 1992 Unknown [id number] 2.16840.1.654234.3.579.2. 1259 1992 Unknown [id number] 2.16.840.1.754568.3.579.2. 9 1992 Unknown [id number] 2.16.840.1.978155.3.579.2. 9 1990 Unknown [id number] 2.16840.1.174645.3.579.2. 9 1992 Unknown [id number] 2.16.840.1.998166.3.579.2. 9 1990 Unknown [id number] 2.16840.1.059200.3.579.2. 9 1990 Unknown [id number] 2.16840.1.144370.3.579.2. 1259 Social History Date Type Detail Facility Start: 05-17-2018 End: 06-14-2018 Tobacco smoking status [facility] Never smoker [facility] Sex Assigned At Not on file [facility] Start: 07-14-2020 Tobacco smoking status NHIS Current some day smoker [facility] Start: 07-14-2020 Alcohol intake Current non-dr inker and opaquer of alcohol (finding) [facility] Exposure to SARS-CoV -2 (event) Not sure [facility] Assessments Note Patient: SABRINA VELASQUEZ Age: [...] for home later today Logan Driscoll MD [phone] SURGERY PROGRESS NOTE SUBJECTIVE: Patient denies abd [...] FoundDocuments on File Type Date Recorded Patient Pulpit Operator Expl 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 [facility] [place] 09/16/18 14:45 [address] [place]. [address] PATIENT INFORMATION Name: SABRINA VELASQUEZ Address: [address] [place] [id number] Age: 28 Years Phone: [phone] : 1990 12:[birth year] MRN: [id number] Sex: Female Race: White Ethnicity: Declined Admitted From: Clinic or [facility] Medical Service: Surgery Nurse Unit/Bed: ([place]) [facility] N/A Admit Date: 09/16/2018 13:46 PCP: [...] to your follow up appointments. Roney [facility] [place] 03/01/19 18:42 [address] [place]. [address] PATIENT INFORMATION Name: SABRINA VELASQUEZ Address: [address] [place] [id number] Age: 29 Years Phone: [phone] : 1990 12:00 [id number] Sex: Female Race: White Ethnicity: Declined Admitted From: Clinic or [facility] Medical Service: Surgery Nurse Unit/Bed: ([place]) 7TWH 6P90-71 Admit Date: 02/28/2019 08:18 PCP: Omid Killian MD PHYSICIANS INVOLVED WITH CARE Attending Physicians: Marcellus Driscoll MD - Surgery Admitting Physician: Marcellus Driscoll MD - Surgery Primary Care Physician:Omid Killian MD, - Consults: None found Problems Active Morbid (severe) obesity due to excess calories Obesity IBS (irritable bowel syndrome) GERD (gastroesophageal reflux (more content not included)... Note Patient: SABRINA VELASQUEZ MRN : ([facility])-[id number] Age: 29 years Sex: Female : 1990 [...] GERD, IBS, and heart murmur presented to [facility] on 02/28/2019 for an elective robotically assisted laparoscopic [place]-en-Y gastric bypass with Dr. catie lawrence had an extensive preoperative workup. Patient tolerated the procedure well and was transferred to PACU in stable condition where she had an uneventful recovery. His then tra (more content not included)... Note Patient: SABRINA VELASQUEZ MRN : ([facility])-[id number] Age: 29 years Sex: Female : 1990 [...] for home later today Logan Driscoll MD [phone] SURGERY PROGRESS NOTE SUBJECTIVE: Patient denies abd [...] (02/28 12:00 (more content not included)... Note [facility] Patient Name: Sabrina Velasquez Procedure Date: [...] not included)... Note Patient: SABRINA VELASQUEZ MRN: ([facility])-[id number] Age: 28 years Sex: Female : 1990 Associated Diagnoses: None Author: Kasie Camacho CRNA Supervising Physician Comments Documentation By: Certified Registered Nurse Lead Technician. Subjective Subjective: Patient participated in the [...] concluded. Note Patient: SABRINA VELASQUEZ MRN : ([facility])-[id number] Age: 29 years Sex: Female : 1990 [...] not included)... Procedure Findings Note [facility]oney [facility] [place] [facility] Patient Name: Sabrina Velasquez Procedure Date: [...] not included)... Note Patient: SABRINA VELASQUEZ MRN: [facility]-[id number] Age: 28 years Sex: Female : 1990 Associated Diagnoses: None Author: Kasie Camacho CRNA Supervising Physician Comments Documentation By: Certified Registered Nurse Lead Technician. Subjective Subjective: Patient participated in the [...] concluded. Note Patient: SABRINA VELASQUEZ MRN : [facility]-[id number] Age: 29 years Sex: Female : 1990 [...] sent through Care Everywhere. * Miscarriage: Threatened (Khmer) documented in this encounter Additional Source Comments [...] nondistended Alicia Hudson MD ED Attending Physician Emergency Department documented in this encounter INFORMATION SOURCE (unrecogn ized section and content) DATE CREATED AUTHOR 06/15/2018 [facility] [facility] DATE CREATED AUTHOR AUTHOR'S ORGANIZ ATION 08/09/2019 [facility] DATE CREATED AUTHOR AUTHOR'S ORGANIZ ATION 12/27/2020 [facility] DATE CREATED AUTHOR AUTHOR'S ORGANIZ ATION 06/15/2024 [facility] EPIC Reason for Visit (unrecogniz ed section and content) Reason Comments Vaginal Bleeding Chris Pate PA-C - 07/14/2020 10:43 AM EDTWDorinda roblero RN - 07/14/2020 10:07 AM EDTWDorinda roblero RN - 07/14/2020 10:04 AM EDT ED Notes (unrecognized secti on and content) ED PROVIDER NOTE EMERGENCY DEPARTMENT NAME: Sabrina Velasquez AGE: 30 y.o. : 1990 VISIT DATE: 07/14/2020 CSN: [id number] PCP: Omid Killian MD Clinical Impression: 1. Threatened ED Disposition ED Disposition Condition Comment Discharge Stable Sabrina Velasquez discharged to home/self care in stable condition. Follow-up Information 1. Roni Clemens MD. Specialty: Obstetrics/Gynecology Why: For recheck of today's symptoms [address] [facility] [address] 2. Emergency Department. Specialty: Emergency Medicine Why: As needed, If symptoms worsen [address] [facility] [address] Contact information for after-discharge care Follow-up information [...] this point clinically. Patient has appointment with QC CHEMIST on Thursday. Considered implantation bleeding, threatened , [...] reports she is scheduled to see her QC CHEMIST Dr. Clemens next week. Patient denies any [...] file Gets together: Not on file Attends taoist service: Not on file Active member of [...] nursing note reviewed. Exam conducted with a insole and outsole preparer present. Constitutional: Appearance: Normal appearance. HENT: Head: [...] Colorless, Yellow Clarity, Urine Clear Clear Specific [place] 1.011 1.005 - 1.025 pH, Urine 7.0 [...] bleeding, spontaneous of is believed most likely. [place] [facility] [employer] Workstation ID: [id number] Procedures The [...] pre-hypertension or hypertension. . Chris Pate PA-C Emergency Department Chris Pate PA-C 07/14/20 1340 [...] BE BASED ON THE PRIMARY CLINICAL RECORDS. [email or web address] [facility]. provides no warranty or guarantee of the accuracy or completeness of information in this document.
--- OUTSIDE RECORDS SUMMARY | 2024-06-19 10:16 | XMS_ITS | CCD ---
Author Organization [facility] Inform ion Partnership [facility] Care Team Providers Care Assistant Bookkeeper Name Role Phone Killian, Omid Sandadi Unavailable [...] Test Name Value Interpretation Reference Range Facility [facility] VERIFICATIONon 020 ABO and Rh group Nom (Bld) A Negative [facility] ABO and Rh group Nom (Bld) ABO/Rh Verification [facility] BMPon 07-14-2020 Anion gap [Moles/Vol] 6 mmol/L Low 10 - 20 mmol/L [facility] Calcium [Mass/Vol] 9.0 mg/dL 8.4 - 10. 2 mg/dL [facility] Chloride [Moles/Vol] 113 mmol/L High 98 - 108 mmol/L [facility] Creatinine [Mass/Vol] 0.64 mg/dL 0.40 - 1.10 [facility] GFR/1.73 sq M predicted among non-blacks MDRD (S/P/Bld) [Vol rate/Area] The eGFR should be used for monitoring renal function only and not for medication dosing. [facility] GFR/1.73 sq M.predicted CKD-EPI (S/P/Bld) [Vol rate/Area] 122 >=60 mL/min/1.73 m2 [facility] Glucose [Mass/Vol] 71 mg/dL 65 - 99 mg/dL [facility] HCO3 [Moles/Vol] 28 mmol/L 21 - 32 mmol/L [facility] Potassium [Moles/Vol] 3.9 mmol/L 3.5 - 5.1 mmol/L [facility] Sodium [Moles/Vol] 143 mmol/L 135 - 145 mmol/L [facility] Urea nitrogen [Mass/Vol] 8 mg/dL 8 - 25 mg/dL [facility] Urea nitrogen/Creatinine [Mass ratio] 12.5 mg/mg [facility] CBC WITH AUTO DIFFERENTIALon 07-14-2020 Basophils (Bld) [#/Vol] 0.03 10*3/uL [facility] Basophils/100 WBC (Bld) 0.4 % [facility] Eosinophils (Bld) [#/Vol] 0.10 10*3/uL [facility] Eosinophils/100 WBC (Bld) 1.5 % [facility] Erythrocyte distribution width (RBC) [Entitic vol] 12.3 % 11.6 - 14.8 % [facility] Hematocrit (Bld) [Volume fraction] 39.2 % 36 - 46 % [facility] Hemoglobin (Bld) [Mass/Vol] 13.6 g/dL 12 - 16 g/dL [facility] Immature granulocytes (Bld) [#/Vol] 0.02 10*3/uL [facility] Immature granulocytes/100 WBC (Bld) 0.30 % [facility] Comment on above: The IG parameter is the percentage of metamyelocytes, myelocytes and promyelocytes. An immature granulocyte count (IG) of 1% or more suggests the possibility of infection, an IG count of 3% is very likely related to an infection. Lymphocytes (Bld) [#/Vol] 1.95 10*3/uL [facility] Lymphocytes/100 WBC (Bld) 29.2 % [facility] MCH (RBC) [Entitic mass] 30.4 pg 26 - 34 pg [facility] MCHC (RBC) [Mass/Vol] 34.7 g/dL 31 - 37 g/dL [facility] MCV (RBC) [Entitic vol] 87.7 fL 80 - 100 fL [facility] Monocytes (Bld) [#/Vol] 0.48 10*3/uL [facility] Monocytes/100 WBC (Bld) 7.2 % [facility] Neutrophils (Bld) [#/Vol] 4.09 10*3/uL [facility] Neutrophils/100 WBC (Bld) 61.4 % [facility] Nucleated RBC (Bld) [#/Vol] 0.00 10*3/uL [facility] Nucleated RBC/100 WBC (Bld) [Ratio] 0.0 % [facility] Platelet mean volume (Bld) [Entitic vol] 11.8 fL 9.4 - 12.4 fL [facility] Platelets (Bld) [#/Vol] 151 10*3/uL [facility] RBC (Bld) [#/Vol] 4.47 10*6/uL [facility] ealth WBC (Bld) [#/Vol] 6.67 10*3/uL [facility] ealth Otheron 07-14-2020 Extra Tube Hold for add-ons. [facility] Comment on above: Auto resulted. Interpretation and review of laboratory results Abnormal [facility] Type and Screenon 07-14-2020 ABO and Rh group Nom (Bld) A Negative [facility] Blood group antibody screen Ql Negative [facility] Specimen Expires 07/17/2020 23:59 EST [facility] URINALYSISon 07-14-2020 Bacteria Auto Ql (U) None Seen None Seen /hpf [facility] Bilirubin Ql (U) Negative Negative [facility] th Clarity Refractometry automated (U) Clear Clear [facility] Color (U) Yellow Colorless, Yellow [facility] Epithelial cells.squamous Auto (Urine sed) [#/Area] 5 High [facility] Glucose Auto test strip (U) [Mass/Vol] Negative Negative mg/dL [facility] Hemoglobin Auto test strip Ql (U) Moderate Abnormal Negative [facility] Interpretation and review of laboratory results Abnormal [facility] Ketones (U) [Mass/Vol] Negative Negative mg/dL [facility] Leukocyte esterase Auto test strip Ql (U) Trace Abnormal Negative [facility] Mucus Auto (Urine sed) [#/Area] Rare None Seen, Rare /lpf [facility] Nitrite Auto test strip Ql (U) Negative Negative [facility] pH (U) 7.0 [pH] [facility] Protein (U) [Mass/Vol] Negative Negative mg/dL [facility] RBC Auto (Urine sed) [#/Area] 2 [facility] Specific gravity (U) [Rel density] 1.011 [facility] Urobilinogen (U) [Mass/Vol] <2.0 <2.0 mg/dL [facility] WBC Auto (Urine sed) [#/Area] 2 [facility] Microscopic examination is performed on all urinalysis samples and only positive findings are reported. The test for blood on the chemical analytic portion of urinalysis may also be positive due to hemoglobinuria and myoglobinuria and if red blood cells are present they are quantified by microscopic examination. [facility] OB 1ST TRIMESTER WITH TRA [...] bleeding, spontaneous of is believed most likely. [facility] Workstation ID: [id number] Dictated by: SHAY FERNANDEZ on Sat Jul 14, 2020 12:00:51 PM EDT Transcribed by: PREETI VILLALTA on Sat Jul 14, 2020 12:07:08 PM EDT Finalized by: SHAY FERNANDEZ on Sat Jul 14, 2020 12:57:[address] [facility] Comment on above: Order Comment: Injur [...] limits. No free peritoneal fluid is seen. [facility] 1. Normal study. 2. With a positive beta hCG, this is a of unknown location. Clinical correlation including serial beta hCG levels is needed differentiate the possibilities which include extremely early , spontaneous of recent , or ectopic gestation which is not directly visualized. With a history of bleeding, spontaneous of is believed most likely. [facility] Workstation ID: [id number] [facility] Interface, Rad In Roblesi Speechq - 07/14/2020 [...] bleeding, spontaneous of is believed most likely. [facility] Workstation ID: [id number] [facility] VAGINITIS DNA PROBESon 07-14 Olga sp DNA Probe+sig amp Ql (Vag fld) Negative Negative [facility] G. vaginalis DNA Probe+sig amp Ql (Vag fld) Negative Negative [facility] Interpretation and review of laboratory results Normal [facility] T. vaginalis DNA Probe+sig amp Ql (Vag fld) Negative Negative [facility] hCG, Blood, QUANTitativeon 0 07-14-2020 Beta HCG ( test) Ql (U) Males and non females: <5 mIU/mL Females during : 3-4 weeks 9-130 mIU/mL 4-5 weeks 75-2600 mIU/mL 5-6 weeks 850-20,800 mIU/mL 6-7 weeks 4000-100,200 mIU/mL 7-12 weeks 11,500-289,000 mIU/mL 12-16 weeks 18,300-137,000 mIU/mL 16-29 weeks 1,400-53,000 mIU/mL 29-41 weeks 940-60,000 mIU/mL [facility] HCG Qn 438 m[IU]/mL High [facility] Basic Metabolic Panelon 04-0 Anion gap [Moles/Vol] 7.0 mmol/L Normal 6.0-18.0 [facility] Comment on above: Performed By: #### 2 4321-2, 43596-9, 09392-0m0, 1988- ####[facility] [address], [place] Calcium [Mass/Vol] 8.6 mg/dL Low 8.9-10.3 [facility] Comment on above: Performed By: #### 2 4321-2, 42243-3, 65728-2n6, 1988-03 ####[facility] [address], [place] Chloride [Moles/Vol] 107 mmol/L Normal 98-107 [facility] Comment on above: Performed By: #### 2 4321-2, 40217-1, 96117-2v2, 1988-03 ####[facility] [address], [place] CO2 [Moles/Vol] 24 mmol/L Normal 22-32 [facility] Comment on above: Performed By: #### 2 4321-2, 73357-1, 31174-2c8, 1988-03 ####[facility] [address], [place] Creatinine [Mass/Vol] 0.67 mg/dL Normal 0.60-1.30 [facility] Comment on above: Performed By: #### 2 4321-2, 19714-0, 33766-0i1, 1988-03 ####[facility] [address], [place] Glucose [Mass/Vol] 105 mg/dL High 70-99 [facility] Comment on above: Result Comment: U pdated ADA Reference Range A normal fasting glucose concentration is less than 100 mg/dL. An impaired fasting glucose concentration is 100-125 mg/dL. A provisional diagnosis of diabetes mellitus can be made when a fasting glucose concentration is greater than 125 mg/dL. Performed By: #### 2 4321-2, 27712-3, 02764-9z8, 1988-03 ####[facility] [address], [place] Potassium [Moles/Vol] 4.1 mmol/L Normal 3.6-5.1 [facility] Comment on above: Performed By: #### 2 4321-2, 77648-5, 02508-7i4, 1988-03 ####[facility] [address], [place] Sodium [Moles/Vol] 138 mmol/L Normal 136-145 [facility] Comment on above: Performed By: #### 2 4321-2, 47448-0, 67507-4t6, 1988-03 ####[facility] [address], [place] Urea nitrogen (BldV) [Mass/Vol] 8 mg/dL Normal 8-20 [facility] Comment on above: Performed By: #### 2 4321-2, 33549-4, 52106-9j7, 1988-03 ####[facility] [address], [place] C-Reactive Proteinon 019 CRP [Mass/Vol] 3.2 mg/dL High <1.0 [facility] Comment on above: Performed By: #### 2 4321-2, 04726-1, 53454-3z1, 1988-03 ####[facility] [address], [place] CBCon 03-01-2019 Erythrocyte distribution width (RBC) [Entitic vol] 14.3 % Normal 11.0-14.8 [facility] Comment on above: Performed By: #### 2 4317-0 ####[place] [address], [place] Hematocrit (Bld) [Volume fraction] 37.5 % Normal 35.0-45.0 [facility] Comment on above: Performed By: #### 2 7-0 ####[place] [address], [place] Hemoglobin (Bld) [Mass/Vol] 12.5 g/dL Normal 12.0-16.0 [facility] Comment on above: Performed By: #### 2 4317-0 ####[facility] [address], [place] MCH (RBC) [Entitic mass] 28.1 Picograms Normal 27.0-34.0 [facility] Comment on above: Performed By: #### 2 4317-0 ####[place] [address], [place] MCHC (RBC) [Mass/Vol] 33.3 g/dL Normal 32.0-36.0 [facility] Comment on above: Performed By: #### 2 4317-0 ####[place] [address] [place], [place] MCV (RBC) [Entitic vol] 84.6 fL Normal 80.0-97.0 [facility] Comment on above: Performed By: #### 2 4317-0 ####[place] [address] [place], [place] Platelet mean volume (Bld) [Entitic vol] 10.5 fL Normal 6.2-12.1 [facility] Comment on above: Performed By: #### 2 4317-0 ####[place] [address] [place], [place] Platelets (Bld) [#/Vol] 231 thou/mcL Normal 142-424 [facility] Comment on above: Performed By: #### 2 4317-0 ####[address] RBC (Bld) [#/Vol] 4.43 million/mcL Normal 3.80-5.10 [facility] Comment on above: Performed By: #### 2 4317-0 ####[address] WBC (Bld) [#/Vol] 12.7 thou/mcL High 4.6-10.2 [facility] Comment on above: Performed By: #### 2 4317-0 ####[address] GFRaaon 03-01-2019 GFR/1.73 sq M predicted among blacks MDRD (S/P/Bld) [Vol rate/Area] mL/min/{1.73_m2} Normal [facility] Comment on above: Result Comment: The MDRD equation has not been validated for those over 70 years, women, patients with serious co-morbid conditions, or with extremes of body size, muscle mass of nutritional status. Performed By: #### 2 4321-2, 70665-7, 14997-5b6, 1987- ####[place] [address], [place] GFRbbon 03-01-2019 GFR/1.73 sq M predicted among non-blacks MDRD (S/P/Bld) [Vol rate/Area] mL/min/{1.73_m2} Normal [facility] Comment on above: Performed By: #### 2 4321-2, 93580-9, 49279-4y9, 1987- ####[facility] [address], [place] Glucose POCT (Uploaded)on Glucose [Mass/Vol] 87 mg/dL Normal 70-99 [facility] Comment on above: Result Comment: Nadia tment ranges and critical values established by Patient Care Services. All follow-up actions were taken by Patient Care Services. Performed By: #### 2 430-8 ####[facility] Glucose [Mass/Vol] 93 mg/dL Normal 70-99 [facility] Comment on above: Result Comment: Nadia tment ranges and critical values established by Patient Care Services. All follow-up actions were taken by Patient Care Services. Performed By: #### 2 430-8 ####[facility] Glucose [Mass/Vol] 95 mg/dL Normal 70-99 [facility] Comment on above: Result Comment: Nadia tment ranges and critical values established by Patient Care Services. All follow-up actions were taken by Patient Care Services. Performed By: #### 2 430-8 ####[facility] Glucose [Mass/Vol] 123 mg/dL High 70-99 [facility] Comment on above: Result Comment: Nadia [...] SABRINA VELASQUEZ/Sex: 1990 Female Med Rec #: [id number] Physician: Yamila URBINA , Marcellus Ramsay Financial #: [id number] Pt. Type: I Room/Bed: [facility] Admit/Disch: 02/28/19 08:18:00 - Institution: [place] [facility] OR Main PACU I Case Times [...] 15:45 Sherrie Rendon RN 03/01/19 07:03 Normal [facility] Patient Summaryon 03-01-2019 Patient Summary PATIENT DISCHARGE INSTRUCTIONS If you are having an emergency and are not able to reach your physician, CALL 911 or go to the nearest emergency room and take this document with you. [facility] 03/01/19 18:42 [address] [place]. [address] PATIENT INFORMATION Name: SABRINA VELASQUEZ Address: [address] [place] [id number] Age: 29 Years Phone: [phone] : 1990 12:00 MRN: ([id number] Sex: Female Race: White Ethnicity: Declined Admitted From: Clinic or [facility] Medical Service: Surgery Nurse Unit/Bed: ([place]) 7T 2W51-92 Admit Date: 02/28/2019 08:18 PCP: Killian Omid URBINA PHYSICIANS INVOLVED WITH CARE ------ Attending Physicians: Yamila URBINA , Marcellus Ramsay - Surgery Admitting Physician: Marcellus Driscoll MD - Surgery Primary Care Physician:Omid Killian MD, - Consults: None found FOLLOW-UP APPOINTMENTS: Provider: Specialty: Address: Date: Marcellus Driscoll MD Surgery [address] [facility] [address] [place] [address] (1) 03/08/19 01:45 pm Comment: Please follow-up at your pre-scheduled appointment. Provider: Specialty: Address: Date: Omid Killian MD [address] [place] [id number] (1) Follow-up as needed Provider: Specialty: Address: Date: Post-Op Nutrition Class [address] [facility] [address] 03/22/19 Comment: Please call [phone] for more information or to re-schedule. ALLERGIES: [...] doses are changed, or new medications (including yoai-uiy-knmjmbz products) are added. Ask your doctor if [...] diet. Follow recommendations from your surgeon and manager poker regarding you diet. Refer to nutrition information [...] doctor before taking any supplements, herbal or gydp-ydx-ryjtjta medications. Call your physician if any questions [...] suicide hotline, anytime day or night, at 7-956-179-MQDJ. Important information about accessing your health information through the [facility] patient portal If you initiated the self-registration process for [facility] during your stay, please check your personal email for an invitation to enroll in [facility] and complete the steps outlined in the email. If you would prefer to enroll while in the hospital, ask a member of your care team. We would be happy to assist you. If you have already enrolled in [facility], go to [email or web address] to login and access your health information. Thank you for choosing [facility]. PATIENT EDUCATION Gastric Bypass Surgery, Care After [...] of caffeine can cause dehydration. ?? A manager poker may also give you specific instructions. ?? [...] 06/30/2005 Document Revised: 12/07/2015 Document Reviewed: 04/08/2011 [employer] Patient Education ??2016 [employer] Gastric Bypass Discharge Instructions 1. Follow-up [...] dietitian for post-operative class at 2 weeks [phone] ? Call Bariatric Nurse Navigator [phone] with any further questions or concerns Call [phone] if you have difficulty breathing or chest [...] provided above is for informational purposes only. [facility] does not promote, condone or endorse all the values expressed herein. The values or opinions they express with regard to the use of artificial contraception are not consistent with the teachings of the Sikh Samaritan and the Ethical and Sikh Directives for Sikh Health Care Services. If any of these instructions are different from what your doctor tells you, follow your doctor's orders. If you smoke, you should quit. For more information, talk with your doctor or call [phone] ( ). PATIENT DISCHARGE INSTRUCTION Signature Page for: SABRINA VELASQUEZ Date/Time: 03/01/2019 18:42:02 A Clinician has explained the information on my discharge instructions and has provided me with a copy. My questions have been answered to my satisfaction. Patient Signature Date/Time Responsible Party Date/Time Relationship to Patient Clinician Signature Date/Time Normal [facility] Glucose POCT (Uploaded)on Glucose [Mass/Vol] 140 mg/dL High [address] [place] [address] Comment on above: Result Comment: Nadia tment ranges and critical values established by Patient Care Services. All follow-up actions were taken by Patient Care Services. Performed By: #### 2 430-8 ####[facility] Glucose [Mass/Vol] 127 mg/dL High [address] [place] [address] Comment on above: Result Comment: Nadia tment ranges and critical values established by Patient Care Services. All follow-up actions were taken by Patient Care Services. Performed By: #### 2 430-8 ####[facility] Glucose [Mass/Vol] 141 mg/dL High [address] [place] [address] Comment on above: Result Comment: Nadia tment ranges and critical values established by Patient Care Services. All follow-up actions were taken by Patient Care Services. Performed By: #### 2 430-8 ####[facility] Glucose [Mass/Vol] 164 mg/dL High [address] [place] [address] Comment on above: Result Comment: Nadia tment ranges and critical values established by Patient Care Services. All follow-up actions were taken by Patient Care Services. Performed By: #### 2 430-8 ####[facility] OR Nursingon 02-28-2019 OR Nursing [facility] OR Nursing Record Summary Primary Physician: Marcellus Driscoll MD Finalized Date/Time: 02/28/19 14:10:30 Pt. Name: SABRINA VELASQUEZ/Sex: 1990 Female Med Rec #: [id number] Physician: Marcellus Driscoll MD Financial #: [id number] Pt. Type: I Room/Bed: / Admit/Disch: 02/28/19 [...] [place] Role Performed Primary Surgeon Anesthesiologist Nurse Slip Bridge Operator Time In 02/28/19 11:17:00 02/28/19 11:17:00 02/28/19 [...] Guaman RN , Litzy Garcia Role Performed medical reviewer RN First Scrub Time In 02/28/19 11:17:00 02/28/19 11:17:00 02/28/19 11:17:00 Time Out 02/28/19 14:05:00 02/28/19 14:05:00 02/28/19 14:05:00 Procedure Bypass Gastric Bypass Gastric Bypass Gastric Robot(N/A) Robot(N/A) Robot(N/A) Attendee Comment LUNCH [id number] LUNCH [id number] lunch [id number] Relief Reason Last Modified By: Abner MARTIN , Disha Levine RN , Disha Levine RN , Disha Aiken 02/28/19 14:09:25 02/28/19 14:09:25 02/28/19 14:09:25 Entry 7 Entry 8 Entry 9 Case Attendee Samaritan RN , Swetha Rao Case, Attendee Other Role Performed medical reviewer First Scrub Manager Foreign Time In 02/28/19 11:48:00 02/28/19 11:57:00 02/28/19 11:17:00 Time Out 02/28/19 12:40:00 02/28/19 12:53:00 02/28/19 14:05:00 Procedure Bypass Gastric Bypass Gastric Bypass Gastric Robot(N/A) Robot(N/A) Robot(N/A) Attendee Comment [place] MIRANDA - INTUITIVE Relief Reason Last Modified By: Abner MARTIN , Disha Levine RN , Disha Duke RN 02/28/19 14:09:25 02/28/19 14:09:25 02/28/19 14:09:25 [facility] OR General Case Windows Systems Admin 1 OR CO W 11 ASA Class [...] Arrival? No 16FR TEMP SEN W/URINE METER [id number] Inserted By Oly Guaman RN at End [...] Bypass Gastric Disha Levine RN, Robot(N/A) Oly Guaamn RN, Page MD , Marcellus Ramsay Last [...] OR Temperature Regulation Entry 1 Unit ID [id number] Site UPPER BODY Last Modified By: Gissell [...] By: Disha Levine RN 02/28/19 14:10 Normal [facility] PreOp Nursingon 02-28-2019 PreOp Nursing [place] [facility] PreOp Nursing Record Summary Primary Physician: Marcellus Driscoll MD Finalized Date/Time: 02/28/19 12:08:12 Pt. Name: SABRINA VELASQUEZ/Sex: 1990 Female Med Rec #: [id number] Physician: Marcellus Driscoll MD Financial #: [id number] Pt. Type: I Room/Bed: / Admit/Disch: 02/28/19 [...] By: Gissell Joshi RN 02/28/19 12:08 Normal [facility] CBC with Differentialon 01-29 Basophils (Bld) [#/Vol] 0.00 thou/mcL Normal 0.00-0.20 [facility] Comment on above: Performed By: #### 5 7021-8 #### [facility] [address], [place] Basophils/100 WBC (Bld) 0.4 % Normal 0.0-2.0 [facility] Comment on above: Performed By: #### 5 7021-8 #### [facility] [address], [place] Eosinophils (Bld) [#/Vol] 0.10 thou/mcL Normal 0.00-0.70 [facility] Comment on above: Performed By: #### 7021-8 #### [facility] [address], [place] Eosinophils/100 WBC (Bld) 1.5 % Normal 0.0-7.0 [facility] Comment on above: Performed By: #### 7021-8 #### [facility] [address], [place] Erythrocyte distribution width (RBC) [Entitic vol] 14.8 % Normal 11.0-14.8 [facility] Comment on above: Performed By: #### 7021-8 #### [facility] [address] [place], [place] Hematocrit (Bld) [Volume fraction] 41.4 % Normal 35.0-45.0 [facility] Comment on above: Performed By: #### 7021-8 #### [facility] [address], [place] Hemoglobin (Bld) [Mass/Vol] 13.7 g/dL Normal 12.0-16.0 [facility] Comment on above: Performed By: #### 7021-8 #### [address] [address] [place], [place] Lymphocytes (Bld) [#/Vol] 1.80 thou/mcL Normal 1.00-4.80 [facility] Comment on above: Performed By: #### 7021-8 #### [facility] [address] [place], [place] Lymphocytes/100 WBC (Bld) 21.5 % Low 22.0-44.0 [facility] Comment on above: Performed By: #### 5 7021-8 #### [place] [address], [place] MCH (RBC) [Entitic mass] 28.6 Picograms Normal 27.0-34.0 [facility] Comment on above: Performed By: #### 5 7021-8 #### [facility] [address] [place], [place] MCHC (RBC) [Mass/Vol] 33.2 g/dL Normal 32.0-36.0 [facility] Comment on above: Performed By: #### 7021-8 #### [facility] [address] [place], [place] MCV (RBC) [Entitic vol] 86.0 fL Normal 80.0-97.0 [facility] Comment on above: Performed By: #### 7021-8 #### [facility] [address] [place], [place] Monocytes (Bld) [#/Vol] 0.60 thou/mcL Normal 0.00-0.90 [facility] Comment on above: Performed By: #### 7021-8 #### [place] [address] [place], [place] Monocytes/100 WBC (Bld) 7.5 % Normal 0.0-12.0 [facility] Comment on above: Performed By: #### 7021-8 #### [place] [address] [place], [place] Neutrophils (Bld) [#/Vol] 5.90 thou/mcL Normal 1.80-7.70 [facility] Comment on above: Performed By: #### 7021-8 #### [place] [address] [place], [place] Neutrophils/100 WBC (Bld) 69.1 % Normal 40.0-70.0 [facility] Comment on above: Performed By: #### 7021-8 #### [facility] [address] [place], [place] Platelet mean volume (Bld) [Entitic vol] 11.3 fL Normal 6.2-12.1 [facility] Comment on above: Performed By: #### 7021-8 #### [place] [address] [place], [place] Platelets (Bld) [#/Vol] 194 thou/mcL Normal 142-424 [facility] Comment on above: Performed By: #### 7021-8 #### [facility] [address], [place] RBC (Bld) [#/Vol] 4.81 million/mcL Normal 3.80-5.10 [facility] Comment on above: Performed By: #### 5 7021-8 #### [facility] [address], [place] WBC (Bld) [#/Vol] 8.5 thou/mcL Normal 4.6-10.2 [facility] Comment on above: Performed By: #### 5 7021-8 #### [facility] [address] Comprehensive Metabolic Pane satnam 2019 Albumin [Mass/Vol] 3.3 g/dL Low 3.5-4.8 [facility] Comment on above: Performed By: #### 2 4323-8, 16293-8d4, 21594-3 ####[place] [address], [place] ALP [Catalytic activity/Vol] 72 Units/L Normal 32-91 [facility] Comment on above: Performed By: #### 2 4323-8, 03930-2m2, 18223-2 ####[facility] [address] ALT [Catalytic activity/Vol] 18 Units/L Normal 14-63 [facility] Comment on above: Performed By: #### 2 4323-8, 12173-8x9, 87847-7 ####[facility] [address], [place] Anion gap [Moles/Vol] 10.0 mmol/L Normal 6.0-18.0 [facility] Comment on above: Performed By: #### 2 4323-8, 90758-5p8, 80545-9 ####[place] [address], [place] AST [Catalytic activity/Vol] 17 Units/L Normal 15-41 [facility] Comment on above: Performed By: #### 2 4323-8, 86827-8u5, 83499-1 ####[facility] [address], [place] Bilirubin [Mass/Vol] 0.7 mg/dL Normal 0.3-1.2 [facility] Comment on above: Performed By: #### 2 4323-8, 38686-8t3, 69622-2 ####[facility] [address], [place] Calcium [Mass/Vol] 8.5 mg/dL Low 8.9-10.3 [facility] Comment on above: Performed By: #### 2 4323-8, 56519-1q5, 72558-7 ####[facility] [address] Chloride [Moles/Vol] 104 mmol/L Normal 98-107 [facility] Comment on above: Performed By: #### 2 4323-8, 36678-8y2, 88196-5 ####[facility] [address] CO2 [Moles/Vol] 22 mmol/L Normal 22-32 [facility] Comment on above: Performed By: #### 2 4323-8, 18724-3r5, 41879-2 ####[facility] [address] Creatinine [Mass/Vol] 0.79 mg/dL Normal 0.60-1.30 [facility] Comment on above: Performed By: #### 2 4323-8, 49403-3b6, 24461-4 ####[facility] [address] Glucose [Mass/Vol] 93 mg/dL Normal 70-99 [facility] Comment on above: Result Comment: U pdated ADA Reference Range A normal fasting glucose concentration is less than 100 mg/dL. An impaired fasting glucose concentration is 100-125 mg/dL. A provisional diagnosis of diabetes mellitus can be made when a fasting glucose concentration is greater than 125 mg/dL. Performed By: #### 2 4323-8, 21851-9b2, 92887-9 ####[facility] [address], [place] Potassium [Moles/Vol] 4.1 mmol/L Normal 3.6-5.1 [facility] Comment on above: Performed By: #### 2 4323-8, 02025-1e7, 77519-5 ####[facility] [address] Protein [Mass/Vol] 6.0 g/dL Low 6.1-7.9 [facility] Comment on above: Performed By: #### 2 4323-8, 98861-2r3, 27627-6 ####[facility] [address] [place] Sodium [Moles/Vol] 136 mmol/L Normal 136-145 [facility] Comment on above: Performed By: #### 2 4323-8, 62733-8c5, 70321-3 ####[facility] [address] [place] Urea nitrogen (BldV) [Mass/Vol] 13 mg/dL Normal 8-20 [facility] Comment on above: Performed By: #### 2 4323-8, 27693-4k8, 19558-9 ####[place] [address], [place] GFRaaon 2019 GFR/1.73 sq M predicted among blacks MDRD (S/P/Bld) [Vol rate/Area] mL/min/{1.73_m2} Normal [facility] Comment on above: Result Comment: The MDRD equation has not been validated for those over 70 years, women, patients with serious co-morbid conditions, or with extremes of body size, muscle mass of nutritional status. Performed By: #### 2 4323-8, 52370-4p6, 95580-8 ####[facility] [address] [place], [place] GFRbbon 2019 GFR/1.73 sq M predicted among non-blacks MDRD (S/P/Bld) [Vol rate/Area] mL/min/{1.73_m2} Normal [facility] Comment on above: Performed By: #### 2 4323-8, 53330-9r3, 28422-6 ####[facility] [address], [place] Glycohemoglobin (HGB A1C) Emanuel guardado 2019 HbA1c (Bld) [Mass fraction] 5.0 % tl hgb Normal <5.6 [facility] Comment on above: Result Comment: U pdated ADA Reference Range HbA1c values of 5.7-6.4 percent indicate an increased risk for developing diabetes mellitus. HbA1c values greater than or equal to 6.5 percent are diagnostic of diabetes mellitus. For diagnosis of diabetes in individuals without unequivocal hyperglycemia, results should be confirmed by repeat testing. Performed By: #### 4 549-2 ####[facility], [address] [place] [address]. Partial Thromboplastin Time (aPTT)on 2019 aPTT Coag (PPP) [Time] 29.6 Sec Normal 23.6-35.3 [facility] Comment on above: Performed By: #### 3 173-2, 5902-2 ####[facility], [address] [place] [address]. Prothrombin Timeon 9 INR Coag (Bld) [Relative time] 1.00 {INR} Normal [facility] Comment on above: Result Comment: The recommended therapeutic INR range for most cardiac indications is 2.0-3.0. For high intensity therapy(ie.mechanical heart valves), the recommended range is 2.5-3.5. Performed By: #### 3 173-2, 5902-2 ####[facility], [address] [place] [address]. PT Coag (PPP) [Time] 11.5 Sec Normal 9.3-12.4 [facility] Comment on above: Performed By: #### 3 173-2, 5902-2 ####[facility], [address] [place] [address]. XR Chest 2 Viewson 9 XR Chest 2 views Two-view chest exam Indication: pre-op. Cough for the past week. COMPARISON: E 66.01 FINDINGS: The lungs are clear and the costophrenic angles are sharp. The cardiomediastinal silhouette and bones are normal. IMPRESSION: Normal chest. [facility] thanks you for the opportunity to care for your patient. Workstation ID: [id number] FINAL REPORT Dictated By: Jean Hull MD 2019 08:47 Assigned Physician: Jean Hull MD Reviewed and Electronically Signed By: Jean Hull MD 2019 08:48 Transcribed by: GREGORY 2019 08:47 Technologist: SHAKA Carranza [facility] OR Nursingon 09-17-2018 OR Nursing CO [facility] OR Nursing Record Summary Primary Physician: Tristan Dickey MD Finalized Date/Time: 09/17/18 07:39:53 Pt. Name: SABRINA VELASQUEZO.B./Sex: 1990 Female Med Rec #: [id number] Physician: Financial #: [id number] Pt. Type: I Room/Bed: / Admit/Disch: 09/16/18 [...] Wolf DO Role Performed Primary Surgeon Nurse Slip Bridge Operator Anesthesiologist Time In 09/16/18 14:20:00 09/16/18 14:20:00 09/16/18 14:20:00 Time Out 09/16/18 14:30:00 09/16/18 14:30:00 09/16/18 14:30:00 Procedure Egd_(N/A) Egd_(N/A) Egd_(N/A) Attendee Comment Relief Reason Last Modified By: Breanna RN , Afia Carlos RN , Afia Carlos RN , Afia 09/16/18 14:31:12 09/16/18 14:31:12 09/16/18 14:31:12 Entry 4 Entry 5 Case Attendee Breanna RN , Afia Bernabe RN , Rosalio Cohn medical reviewer Shelving Supervisor Time In 09/16/18 14:20:00 09/16/18 14:20:00 Time Out 09/16/18 14:30:00 09/16/18 14:30:00 Procedure Egd_(N/A) Egd_(N/A) Attendee Comment Relief Reason Last Modified By: Breanna RN , Afia Carlos RN , Afia 09/16/18 14:31:12 09/16/18 14:31:12 CO ESTHELA Ly General Case Windows [employer] Admin 1 OR CO W EN 02 ASA [...] 07:39 Sherrie Rendon RN 09/17/18 07:39 Normal [facility] Post PACU Nursingon 09-17-20 Post PACU Nursing CO ESTHELA Ly PACU II Nursing Record Summary Primary Physician: Tristan Dickey MD Finalized Date/Time: 09/17/18 07:40:27 Pt. Name: SABRINA VELASQUEZ /Sex: 1990 Female Med Rec #: [id number] Physician: Financial #: [id number] Pt. Type: I Room/Bed: / Admit/Disch: 09/16/18 [...] 07:35 Sherrie Rendon RN 09/17/18 07:40 Normal [facility] PreOp Nursingon 09-17-2018 PreOp Nursing CO [facility] PreOp Nursing Record Summary Primary Physician: Tristan Dickey MD Finalized Date/Time: 09/17/18 07:36:42 Pt. Name: FRANCISCO VELASQUEZEE /Sex: 1990 Female Med Rec #: [id number] Physician: Financial #: [id number] Pt. Type: I Room/Bed: / Admit/Disch: 09/16/18 [...] 07:36 Sherrie Rendon RN 09/17/18 07:36 Normal [facility] Patient Summaryon 09-16-2018 Patient Summary PATIENT DISCHARGE INSTRUCTIONS If you are having an emergency and are not able to reach your physician, CALL 911 or go to the nearest emergency room and take this document with you. [facility] 09/16/18 14:45 [address] [place]. [address] PATIENT INFORMATION Name: SABRINA VELASQUEZ Address: [address] [place] [address] Age: 28 Years Phone: [phone] : 1990 12:00 MRN: ([id number] Sex: Female Race: White Ethnicity: Declined Admitted From: Clinic or [facility] Medical Service: Surgery Nurse Unit/Bed: (NCRosa Maria ChaconTAMIKO N/A Admit Date: 09/16/2018 13:46 [...] doses are changed, or new medications (including mftt-tpo-mjfzmoj products) are added. Ask your doctor if [...] suicide hotline, anytime day or night, at 7-918-965-JYNE. Important information about accessing your health information through the [facility] patient portal If you initiated the self-registration process for [facility] during your stay, please check your personal email for an invitation to enroll in [facility] and complete the steps outlined in the email. If you would prefer to enroll while in the hospital, ask a member of your care team. We would be happy to assist you. If you have already enrolled in [facility], go to [email or web address] to login and access your health information. Thank you for choosing [facility]. PATIENT EDUCATION Esophagogastroduodeno scopy, Care After Refer [...] 11/02/2013 Document Revised: 12/07/2015 Document Reviewed: 11/02/2013 [employer] Interactive Patient Education ?2016 [employer] VIRUSES OR BACTERIA: WHAT'S GOT YOU [...] Relationship to Patient Clinician Signature Date/Time Normal [facility] ECG 12 leadon 06-14-2018 Atrial Rate Invalid Interpretation Code [facility] P [place] Invalid Interpretation Code [facility] P-R Interval Invalid Interpretation Code [facility] Q-T Interval Invalid Interpretation Code [facility] Q-T Interval (corrected) Invalid Interpretation Code [facility] QRS Duration Invalid Interpretation Code [facility] QTC Calculation (Bezet) Invalid Interpretation Code [facility] R [place] Invalid Interpretation Code [facility] T [place] Invalid Interpretation Code [facility] Ventricular Rate Invalid Interpretation Code [facility] Vital Signs Date Time Vital Sign Value Performing Clinician Abbey ruiz 07-14-2020 13:00-0400 BP Diastolic 78 mm[Hg[facility] 07-14-2020 13:00-0400 BP Systolic 123 mm[Hg] Alicia Hudson [facility] 07-14-2020 13:00-0400 Pulse (Heart Rate) 55 /min Alicia Hudson [facility] 07-14-2020 13:00-0400 Pulse Oximetry 100 % [facility] 07-14-2020 10:06-0400 Body Temperature 98.8 [degF] Alicia Hudson [facility] 07-14-2020 10:04-0400 BMI (Body Mass Index) 43.58 kg/m2 Alicia Hudson [facility] 07-14-2020 10:04-0400 Body weight 122.47 kg [facility] 07-14-2020 10:04-0400 Height 167.6 cm Alicia Hudson [facility] 07-14-2020 10:04-0400 Respiratory Rate 16 /min Alicia Hudson [facility] 06-14-2018 09:16-0400 BMI (Body Mass Index) 63.24 kg/m2 [facility] 06-14-2018 09:16-0400 BP Diastolic 84 mm[Hg] [facility] 06-14-2018 09:16-0400 BP Systolic 128 mm[Hg] [facility] 06-14-2018 09:16-0400 Height 167.6 cm [facility] 06-14-2018 09:16-0400 Pulse (Heart Rate) 64 /min [facility] 06-14-2018 09:16-0400 Pulse Oximetry 98 % [facility] 06-14-2018 09:16-0400 Weight 177.72 kg Josefina Tracy [facility] Encounters Encounter Date Encounter Type Care Provider [...] 07-14-2020 Emergency department patient visit OMID MARTINEZ [facility] Start: 07-14-2020 End: 07-14-2020 Emergency department patient visit Alicia Hudson Work Phone: [facility] Emergency Department Comment on above: Threatened (Primary Dx) Start: 12-13-2018 End: 12-13-2018 Patient encounter procedure Lauren Rivera [facility] Dermatology Start: 06-14-2018 End: 06-14-2018 Patient encounter PROVIDER NOT IN SYSTEM [facility] Start: 06-14-2018 End: 06-14-2018 Office outpatient new 30 minutes Provider Not In System [facility] Cardiology Start: 05-17-2018 End: 05-17-2018 Patient encounter VANESSA JAVAN [facility] Start: 05-17-2018 End: 05-17-2018 Office outpatient new 30 minutes Vanessa Springfield Work Phone: [facility] Dermatology Procedures Date Procedure Procedure [...] vaccinatio n given Sequential Influenza Vaccine (#1) [facility] Start: 07-31-2018 Influenza vaccination [facility] Start: 07-31-2018 Influenza vaccinatio n given SEQUENTIAL INFLUENZA VACCINE (#1) [facility] Start: 07-19-2018 End: 07-19-2018 Ambulatory 07/19/2018 Office Visit Dermatology Vanessa Roland Jr., DO [address] [place] [address] [phone] [facility] D[facility] Start: 06-14-2018 End: 06-14-2018 Ambulatory 06/14/2018 Office Visit Cardiology System, Provider Not In [facility], Josefina Matthew MD [address] [place] [address] [phone] [facility] Card[facility] Start: 02-21-2010 Hepatitis C antibody , confirmatory test Hepatitis C Screening [facility] Start: 02-21-2007 HIV screening HIV Screening [facility] Start: 02-21-1995 History and physical examination, annual for health maintenance Wellness Visit [facility] Start: 1992 Screening for malign ant neoplasm of cervix PAP SMEAR [facility] Start: 1992 [facility] End: 07-14-2020 Neisseria gonorrhoeae nucleic acid detection Chlamydia/Gonorrhoeae Amplified RNA Microbiology Routine Once for 1 Occurrences starting 07/14/2020 until 07/14/2020 [facility] Comment on above: Once for 1 Occurrenc es starting 07/14/2020 until 07/14/2020 Neisseria gonorrhoea e nucleic acid detection Chlamydia/Gonorrhoeae Amplified RNA Microbiology Routine 07/14/2020 11:20 AM EDT [facility] Payers Date Payer Category Payer Medicaid [id number] 2020 Medicaid [employer] MEDICA[employer] xxxxxxxxxxx 2020-Present xxxxxxxxxxx [id number] 2020 Medicaid [id number] 2019 Private Health Insurance [id number] 2017 Unknown [id number] 2017 Unknown [facility] HMO/BECKY/ BECKY PLUS/CHOICE PLUS xxxxxxxxx 2017-Present xxxxxxxxx [id number] 1992 Unknown [id number] [id number]. 903 1992 Unknown [id number] 2.16.840.1.834397.3.579.2. 1259 1992 Unknown [id number] 2.16.840.1.891565.3.579.2. 9 1992 Unknown [id number] 2.16840.1.460183.3.579.2. 9 1992 Unknown [id number] 2.16.840.1.847715.3.579.2. 9 1992 Unknown [id number] 2.16840.1.256105.3.579.2. 9 1992 Unknown [id number] 2.16840.1.761129.3.579.2. 1259 1992 Unknown [id number] 2.16.840.1.462105.3.579.2. 9 1992 Unknown [id number] 2.16.840.1.341157.3.579.2. 9 1992 Unknown [id number] 2.16840.1.107890.3.579.2. 9 1992 Unknown [id number] 2.16.840.1.686871.3.579.2. 9 1990 Unknown [id number] 2.16840.1.660840.3.579.2. 9 1990 Unknown [id number] 2.16840.1.617177.3.579.2. 1259 Social History Date Type Detail Facility Start: 05-17-2018 End: 06-14-2018 Tobacco smoking status [facility] Never smoker [facility] Sex Assigned At Not on file 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 Roney Zhong [facility]ant 09/16/18 14:45 [address] [place]. [address] PATIENT INFORMATION Name: SABRINA VELASQUEZ Address: [address] [place] [address] Age: 28 Years Phone: [phone] : 1990 12:00 MRN: [id number] Sex: Female Race: White Ethnicity: Declined Admitted From: Clinic or [facility] Medical Service: Surgery Nurse Unit/Bed: (NC) [facility] N/A Admit Date: 09/16/2018 13:46 [...] to your follow up appointments. Roney Zhong Sturdivant 03/01/19 18:42 [address] [place]. [address] PATIENT INFORMATION Name: SABRINA VELASQUEZ Address: [address] [place] [address] Age: 29 Years Phone: [phone] : 1990 12:00 [id number] Sex: Female Race: White Ethnicity: Declined Admitted From: Clinic or [facility] Medical Service: Surgery Nurse Unit/Bed: (NC) 7TWH 9Y90-92 Admit Date: 02/28/2019 08:18 PCP: Omid Killian MD PHYSICIANS INVOLVED WITH CARE Attending Physicians: Marcellus Driscoll MD - Surgery Admitting Physician: Marcellus Driscoll MD - Surgery Primary Care Physician:Omid Killian MD, - Consults: None found Problems Active Morbid (severe) obesity due to excess calories Obesity IBS (irritable bowel syndrome) GERD (gastroesophageal reflux (more content not included)... Note Patient: SABRINA VELASQUEZ MRN : ([id number] Age: 29 years Sex: Female : 1990 [...] GERD, IBS, and heart murmur presented to [facility] on 02/28/2019 for an elective robotically assisted laparoscopic [place]-en-Y gastric bypass with Dr. catie lawrence had an extensive preoperative workup. Patient tolerated the procedure well and was transferred to PACU in stable condition where she had an uneventful recovery. His then tra (more content not included)... Note Patient: SABRINA VELASQUEZ MRN : ([id number] Age: 29 years Sex: Female : 1990 [...] for home later today Logan Driscoll MD [phone] SURGERY PROGRESS NOTE SUBJECTIVE: Patient denies abd [...] (02/28 12:00 (more content not included)... Note [facility] Patient Name: Sabrina Velasquez Procedure Date: 09/16/2018 [...] not included)... Note Patient: SABRINA VELASQUEZ MRN: ([facility])-[id number] Age: 28 years Sex: Female : 1990 Associated Diagnoses: None Author: Kasie Camacho CRNA Supervising Physician Comments Documentation By: Certified Registered Nurse Slip Bridge Operator. Subjective Subjective: Patient participated in the evaluation: [...] Plan: post anesthetic surveillance concluded. Note Patient: SABRIAN VELASQUEZ MRN : ([facility])-[id number] Age: 29 years Sex: Female : 1990 [...] not included)... Procedure Findings Note Roney Zhong Sturdivant GI Patient Name: Sabrina Velasquez Procedure Date: [...] not included)... Note Patient: SABRINA VELASQUEZ MRN: [id number] Age: 28 years Sex: Female : 1990 Associated Diagnoses: None Author: Kasie Camacho CRNA Supervising Physician Comments Documentation By: Certified Registered Nurse Slip Bridge Operator. Subjective Subjective: Patient participated in the evaluation: [...] concluded. Note Patient: SABRINA VELASQUEZ MRN : [id number] Age: 29 years Sex: Female : 1990 [...] (Firefly). SURGEON: Logan Driscoll MD RESIDENT SURGEON: oJhn Bustamante MD ANESTHESIA: General. ESTIMATED BLOOD LOSS: [...] sent through Care Everywhere. * Miscarriage: Threatened (Spanish) documented in this encounter Additional Source Comments [...] Hudson MD ED Attending Physician [facility] Emergency Department documented in this encounter INFORMATION SOURCE (unrecogn ized section and content) DATE CREATED AUTHOR 06/15/2018 [facility] DATE CREATED AUTHOR AUTHOR'S ORGANIZ ATION 08/09/2019 [facility] DATE CREATED AUTHOR AUTHOR'S ORGANIZ ATION 12/27/2020 [facility] DATE CREATED AUTHOR AUTHOR'S ORGANIZ ATION 06/15/2024 [facility] dical [facility] Reason for Visit (unrecogniz ed section and content) Reason Comments Vaginal Bleeding Chris Pate PA-C - 07/14/2020 10:43 AM EDTWDorinda roblero RN - 07/14/2020 10:07 AM EDTWDorinda roblero RN - 07/14/2020 10:04 AM EDT ED Notes (unrecognized secti on and content) ED PROVIDER NOTE [facility] EMERGENCY DEPARTMENT NAME: Sabrina Velasquez AGE: 30 y.o. : 1990 VISIT DATE: 07/14/2020 CSN: [id number] PCP: Omid Killian MD Clinical Impression: 1. Threatened ED Disposition ED Disposition Condition Comment Discharge Stable Sabrina Velasquez discharged to home/self care in stable condition. Follow-up Information 1. Roni Clemens MD. Specialty: Obstetrics/Gynecology Why: For recheck of today's symptoms [address] [facility] [id number] [facility] Emergency Department. Specialty: Emergency Medicine Why: As needed, If symptoms worsen [address] [facility] [address] Contact information for after-discharge care Follow-up information [...] this point clinically. Patient has appointment with [employer] on Thursday. Considered implantation bleeding, threatened , [...] reports she is scheduled to see her [employer] Dr. Clemens next week. Patient denies any [...] file Gets together: Not on file Attends yarsani service: Not on file Active member of [...] nursing note reviewed. Exam conducted with a lieutenant shift supervisor present. Constitutional: Appearance: Normal appearance. HENT: Head: [...] Colorless, Yellow Clarity, Urine Clear Clear Specific [place] 1.011 1.005 - 1.025 pH, Urine 7.0 [...] bleeding, spontaneous of is believed most likely. [facility] Workstation ID: [id number] Procedures The [...] hypertension. . Chris Pate PA-C [facility] Emergency Department Chris Pate PA-C 07/14/20 [...] BE BASED ON THE PRIMARY CLINICAL RECORDS. [employer] [facility]. provides no warranty or guarantee of the accuracy or completeness of information in this document.
[2024-06-19 10:59] LABS: Bilirubin Urine NEGATIVE (NEGATIVE); Blood Urine NEGATIVE (NEGATIVE); Clarity Urine CLEAR (CLEAR); Color Urine LT. YELLOW (YELLOW); Glucose Urine UA NEGATIVE (NEGATIVE); Ketones Urine NEGATIVE (NEGATIVE); Leukocyte Esterase Urine NEGATIVE (NEGATIVE); Nitrite Urine NEGATIVE (NEGATIVE); Protein Urine NEGATIVE (NEG/TRACE); Urobilinogen Urine 0.2 EU/dL (0.2-1.0)
[2024-06-19 11:00] VITALS: BP 128/60; PULSE 50
[2024-06-19 11:00] LABS: Urine Microscopic Indicated NO
[2024-06-19 11:02] LABS: Amnisure NEGATIVE (NEGATIVE); Internal Control Within Normal Limits
== END 2024-06-19 11:40 | disposition home or self-care (01) ==
LOC: FBCO 10:14 → FBC 10:14
PROVIDERS: Admitting Provider Obstetrics & Gynecology; Visit Provider Obstetrics & Gynecology
DX: O26.893 Other specified pregnancy related conditions, third trimester (principal); N89.8 Other specified noninflammatory disorders of vagina; Z3A.38 38 weeks gestation of pregnancy
CPT/HCPCS: 59025; 81003; 84112; G0378; G0379

== ENCOUNTER 2024-06-23 16:04 | Inpatient (IN) | payer OTHER, SELFPAY ==
[2024-06-23] VITALS (8 sets, daily range): BP systolic 105–124; BP diastolic 55–62; PULSE 55–68; TEMP 35.6–35.9
[2024-06-23 16:51] LABS: Hematocrit 35.7 % (36.0-48.0); Hemoglobin 12.4 g/dL (12.0-16.0); Mean Corpuscular HGB Conc 34.7 g/dL (29.9-35.2); Mean Corpuscular Hemoglobin 32.4 pg (26.7-34.0); Mean Corpuscular Volume 93.2 fL (81.0-99.0); Mean Platelet Volume 13.8 fL (9.5-13.5); Platelet Count 154 10^3/uL (150-450); Red Blood Count 3.83 10^6/uL (4.20-5.40); Red Cell Distribution Width 12.8 % (11.0-15.0); White Blood Count 10.2 10^3/uL (4.0-11.0)
[2024-06-23] MEDS: DINOPROSTONE 10 MG VAG INSERT.ER VAGINAL (17:00)
[2024-06-23 17:31] LABS: Amphetamine Screen Urine NEGATIVE (NEGATIVE); Barbiturates Screen Urine NEGATIVE (NEGATIVE); Benzodiazepines Screen Urine NEGATIVE (NEGATIVE); Buprenorphine Screen Urine NEGATIVE (NEGATIVE); Cannabinoid Screen Urine NEGATIVE (NEGATIVE); Cocaine Screen Urine NEGATIVE (NEGATIVE); Methadone Screen Urine NEGATIVE (NEGATIVE); Methamphetamines Screen Urine NEGATIVE (NEGATIVE); Opiate Screen Urine NEGATIVE (NEGATIVE); Oxycodone Screen Urine NEGATIVE (NEGATIVE); Phencyclidine Screen Urine NEGATIVE (NEGATIVE); Tricyclic Antidepressant Urine NEGATIVE (NEGATIVE)
[2024-06-24] VITALS (76 sets, daily range): BP systolic 86–193; BP diastolic 46–73; PULSE 44–73; TEMP 35.6–36.9
[2024-06-24] MEDS: 0.9 % SODIUM CHLORIDE 1,000 ML 125 ML IV ×4 (06:15→20:54)
--- NOTE | 2024-06-24 07:58 | W.PC.ACHO ---
Registration Status: ADM IN Primary Language: Afghan Preferred Language: Afghan 0700- bedside report at this time. Active Medications Generic Name Dose Route Start Last Admin Trade Name Freq PRN Reason Stop Dose Admin Carboprost Tromethamine 250 mcg 06/23/24 16:10 Carboprost Tromethamine 250 Mcg/Ml 1 Ml Vial IM 06/25/24 16:10 Q15M PRN Bleeding Diphenhydramine HCl 25 mg 06/24/24 05:48 Diphenhydramine Hcl 50 Mg/Ml Vial IV 06/25/24 05:49 Q6H PRN Itching Ephedrine Sulfate 5 mg 06/24/24 05:48 Ephedrine Sulfate 50 Mg/Ml Vial IV 06/25/24 05:49 Q5M PRN Blood Pressure - Low Fentanyl Citrate 100 mcg 06/24/24 05:48 Fentanyl Citrate/Pf 100 Mcg/2 Ml Vial EPIDURAL ONCE PRN epidural Fentanyl Citrate 100 mcg 06/24/24 05:48 Fentanyl Citrate/Pf 100 Mcg/2 Ml Vial EPIDURAL ONCE PRN epidural Tranexamic Acid 1,000 mg/ 110 mls @ 440 mls/hr 06/23/24 16:10 Sodium Chloride IV 06/25/24 16:11 ONCE PRN Uterine Bleeding Sodium Chloride 1,000 mls @ 125 mls/hr 06/23/24 16:30 06/24/24 06:15 Sodium Chloride 0.9% 1,000 Ml IV 125 mls/hr .Q8H RICKY Administration Oxytocin/Sodium Chloride 10 units in 500 mls @ 6 mls/hr 06/23/24 16:15 Pitocin 10 Unit/500 Ml-Ns IV TITR RICKY Protocol 2 MILLIUNIT/MIN Oxytocin/Sodium Chloride 20 units in 1,000 mls @ 125 mls/hr 06/23/24 16:10 Pitocin 20 Unit/1,000 Ml-Ns IV Q8H PRN POST DELIVERY Ropivacaine/Sodium Chloride 400 mg in 200 mls @ 6 mls/hr 06/24/24 06:00 Naropin 0.2% 400 Mg/200 Ml Bag EPIDURAL Q24H RICKY Lidocaine 5 ml 06/23/24 16:10 Lidocaine Viscous 2% 15 Ml Solution TOPICAL 06/25/24 16:12 ONCE PRN Pain Lidocaine 1 ml 06/23/24 16:10 Lidocaine Hcl 1% 200 Mg/20 Ml Mdv INJ 06/25/24 16:12 ONCE PRN Pain Lidocaine 5 ml 06/24/24 05:48 Lidocaine Hcl 2% Pf 100 Mg/5 Ml Vial INJ 06/25/24 05:48 Q1H PRN Epidural Methylergonovine Maleate 0.2 mg 06/23/24 16:10 Methylergonovine Maleate 0.2 Mg/Ml Ampule IM 06/25/24 16:10 ONCE PRN Uterine Contractility/Contract Methylergonovine Maleate 0.2 mg 06/23/24 16:10 Methylergonovine Maleate 0.2 Mg Tablet PO 06/25/24 16:10 Q4H PRN Uterine Contractility/Contract Misoprostol 600 mcg 06/23/24 16:10 Misoprostol 100 Mcg Tablet PO 06/25/24 16:10 ONCE PRN Uterine Bleeding Misoprostol 800 mcg 06/23/24 16:10 Misoprostol 100 Mcg Tablet SL 06/25/24 16:10 ONCE PRN Uterine Bleeding Misoprostol 1,000 mcg 06/23/24 16:10 Misoprostol 100 Mcg Tablet DC 06/25/24 16:10 ONCE PRN Uterine Bleeding Nalbuphine HCl 10 mg 06/23/24 16:10 Nalbuphine Hcl 10 Mg/Ml Ampule IV Q3H PRN Pain Naloxone HCl 0.4 mg 06/24/24 05:48 Naloxone Hcl 0.4 Mg/Ml Vial IV 06/25/24 05:49 ONCE PRN Respiratory Distress Ondansetron HCl 4 mg 06/23/24 16:10 Ondansetron 4 Mg Rapdis Tablet SL Q6H PRN Nausea And Vomiting Ondansetron HCl 4 mg 06/23/24 16:10 Ondansetron Pf 4 Mg/2 Ml Vial IV Q6H PRN Nausea And Vomiting Oxytocin 10 unit 06/23/24 16:10 Oxytocin 10 Unit/Ml Vial IM 06/25/24 16:10 ONCE PRN Bleeding Diet Category Date Time Status Regular Consistency Diet Diet 06/23/24 16:11 Active IV Insertion/Site Date of IV Line Insertion [ 06/23/24 Long PIV (>1.75 in) 20g right Forearm] IV Insertion Time [Long PIV (> 16:30 1.75 in) 20g right Forearm] Neurology Patient orientation (short person,place,time,situation list)
[2024-06-24] MEDS: OXYTOCIN/0.9 % SODIUM CHLORIDE 10 UNITS/500 ML PLAST..BAG 6 UNIT IV (09:08)
[2024-06-24] MEDS: NALBUPHINE HCL 10 MG/ML AMPULE IV ×2 (10:12→16:18)
--- NOTE | 2024-06-24 12:14 | PM.OBHP ---
OB - H&P: HPI History of Present Illness Chief complaint: INDUCTION : 2 Para: 0 Gestational age based on last menstrual period: 39 weeks Indications for induction: other (elective) History of Present Dating criteria: LMP confirmed by 1st trimester US care: good care Ultrasounds: normal mid trimester US Medical complications OB: none Labs Blood type: A (-) negative Narrative: see ob chart from office Review of Systems ROS Status of ROS: 10 or more systems reviewed and unremarkable except as noted in history and below PFSH PFSH Surgical History History of tonsillectomy ?Z90.89 - Acquired absence of other organs (ICD-10) Gastric bypass status for obesity ?Z98.84 - Bariatric surgery status (ICD-10) Social History Within the past year, how often did you have six or more drinks on one occasion: never Smoking status: Current every day smoker What tobacco products do you use: cigarettes Cigarettes per day: 15 Non-prescribed substance use: former substance user Non-prescribed substance use details: history of meth use Meds Home Medications and Allergies Home Medications ?Medication ?Instructions ?Recorded ?Confirmed ?Type aspirin 81 mg chewable tablet 81 mg PO DAILY 06/23/24 06/23/24 History valacyclovir 500 mg tablet 500 mg PO DAILY 06/23/24 06/23/24 History Allergies Allergy/AdvReac Type Severity Reaction Status Date / Time No Known Drug Allergies Allergy Verified 06/23/24 16:13 Exam Narrative Exam Narrative: feeling contractions which are uncomfortable Constitutional Vital Signs, click to edit/add: Last Vital Signs Temp 98.1 F 06/24/24 08:20 Pulse 53 L 06/24/24 12:13 Resp 18 06/24/24 08:20 BP 142/60 H 06/24/24 12:13 Documenting provider has reviewed patient's vital signs: yes Common normals: oriented x3, no limitations, alert and well nourished General appearance: cooperative, comfortable and well developed Nutritional appearance: obese Orientation/consciousness: Yes awake, Yes oriented to person, Yes oriented to place and Yes oriented to time HENMT Common normals: normocephalic and head/scalp atraumatic Eye Pupil: PERRL and accommodation reflex normal Neck & C-Spine Common normals: full ROM and supple Respiratory Common normals: normal respiratory effort Cardio Common normals: regular rate and regular rhythm GI Common normals: Normal to inspection, nondistended, normoactive bowel sounds present and soft to palpation Common normals: no CVA tenderness Back & Pelvis Common normals: thoracic and lumbar spine normal to inspection Extremity Common normals: normal to inspection, full ROM and no calf tenderness Neuro Common normals: CN's II-XII intact bilaterally Sensorium/orientation: awake, alert, oriented to person, oriented to place and oriented to time Psych Common normals: mental status grossly normal, thought process normal, cooperative, affect normal, speech normal and activity/motor behavior normal Results Labs Labs: Short CBC 06/23/24 Range/Units 16:30 WBC 10.2 (4.0-11.0) 10^3/uL Hgb 12.4 (12.0-16.0) g/dL Hct 35.7 L (36.0-48.0) % Plt Count 154 (150-450) 10^3/uL OB - A/P Assessment and Plan (1) Term : Assessment and Plan: TERM , ELECTIVE INDUCTION AT 39 WEEK, S/P CERVIDIL FOR 12 HOURS, CURRENTLY CONTRACTION Q 2 TO 4 MIN AND UNCOMFORTABLE, CERVIX 3 CM/100/-3 VTX, PRESENTLY CAT I HEART TRACING Plan IOL AT 39 WEEKS, OB CHART REVIEWED, MAY HAVE EPIDURAL WHEN DESIRES, ANTICIPATE
--- NOTE | 2024-06-24 16:34 | PC.NURSE ---
1430-discussed patient's blood type with patient and Rhogam protocol and plan of care. Pt. confirms with previous miscarriage that she does not believe she received Rhogam, Dr. Rodriguez updated on patient's blood type and Rhogam status, request's father of baby's blood type to determine plan of care, father of baby agrees and has blood drawn per physician order, will notify Dr. Rodriguez of results
[2024-06-24] MEDS: 0.9 % SODIUM CHLORIDE 1,000 ML 1000 ML IV (18:21)
[2024-06-24] MEDS: ROPIVACAINE HCL/PF 400 MG/200 ML PREMIX 6 MG EPIDURAL (19:14)
--- NOTE | 2024-06-24 20:14 | P.OBPN_ITS ---
Pain Control Pain control: epidural Pelvic Exam Dilation (cm): 3 Effacement (%): 90 Comments: HEAD NOT APPLIED TO CERVIX, BALLOTTABLE Contractions Monitor mode: External Contraction pattern: Irregular Contraction intensity: Moderate Intrauterine tone measurement: DUE TO OBESITY CAN NOT ADEQUATELY ASSESS Infant station: -3 (HEAD NOT ENGAGED) Amniotic membrane status: Intact status: Category I Comments: PATIENT DID NOT TOLERATE PITOCIN AT 6 MIU . HAD PROLONGED DECEL AT 4 MIN. BABY HAS RECOVERED AND NOW CAT I. PRIOR TO THE 4 MIN DECEL WAS HAVING REPETITIVE VARIABLE DECELS. APPROPRIATE INTERVENTIONS WERE INSTITUTED WITH OXYGEN AND POSITION CHANGE AND OXYGEN. Assessment and Plan Assessment: other (SEE BELOW) Comments: HAD LONG DISCUSSION WITH PATIENT AND . EXPLAINED THE FOLLOWIN) PITOCIN HAD TO BE STOPPED BECAUSE THE BABY'S HEART RATE BECAME NONREASSURING WITH A PROLONGED DECEL. ALSO, PRIOR TO THIS PROLONGED DECEL THERE WERE OTHER DECELS CALLED VARIABLES WHICH WERE ALSO AN INDICATOR THAT THE BABY WAS NOT TOLERATING THE PITOCIN. I EXPLAINED THAT WERE COULD NOT ADEQUATELY EVALUATE THE CONTRACTIONS BECAUSE OF MATERNAL HABITUS. I EXPLAINED THAT THERE IS AN INTERNAL PRESSURE MONITOR FOR CONTRACTIONS BUT TO PLACE THE PATIENT'S AMNIOTIC SAC WOULD HAVE TO BE RUPTURED HOWEVER THAT CAN NOT HAPPEN UNTIL THE HEAD IS APPLIED TO THE CERVIX OTHERWISE AT RISK FOR CORD PROLAPSE WHICH CAN BE LIFE THREATENING TO THE BABY. I GAVE THE PATIENT THE OPTION OF TURNING THE PITOCIN OFF. ALLOWING HER TO EAT. SLEEP THROUGH THE NIGHT, REEVALUATE IN THE MORNING. IF THE BABY'S HEAD IS APPLIED TO THE CERVIX, THE AMNIOTIC SAC CAN BE RUPTURED AND AN IUPC AND FSE CAN BE PLACED TO ELIMINATED DIFFICULTIES WITH SEEING CONTRACTIONS AND THE HEART RATE. THE NEED FOR PITOCIN CAN THEN BE REEVALUATED AND IF NEEDED THE STRENGTH OF THE CONTRACTIONS CAN BE ASSESSED SO THAT THE MINIMUM AMOUNT OF PITOCIN IS USED IF NEEDED AT ALL. FINALLY, THE PATIENT UNDERSTANDS THAT IF WE ARE UNSUCCESSFUL IN ESTABLISHING LABOR, THEN SHE WILL BE GIVEN THE OPTION OF GOI NG HOME OR HAVING A PRIMARY LTCS FOR FAILED INDUCTION. ALL QUESTIONS WERE ANSWERED WITH STATED UNDERSTANDING. Urinary Catheter Management Urinary Catheter Management Urethral: Cath placed during this visit: yes Urethral indwelling: Yes Reason for continuing: epidural catheter Insertion date: 06/24/24 Insertion time: 06:00 (APPROXIMATE)
[2024-06-24] MEDS: TEMAZEPAM 15 MG CAPSULE PO (23:39)
[2024-06-25] VITALS (93 sets, daily range): BP systolic 90–142; BP diastolic 45–88; PULSE 42–105; TEMP 36.3–37.9; O2SAT 86–100
[2024-06-25] MEDS: 0.9 % SODIUM CHLORIDE 1,000 ML 125 ML IV ×3 (01:33→12:17)
--- NOTE | 2024-06-25 10:34 | PM.OBPNL ---
Pain Control Pain control: tolerating well and epidural Comments: patient slept through the night, (on her own) she changed her cervix: now 4/100/-1 and the head is applied to the cervix. able to rupture membranes, place an IUPC and FSE Pelvic Exam Dilation (cm): 4 Effacement (%): 100 Contractions Monitor mode: Internal Contraction frequency: 3 (q 3 to 5 minutes) Contraction duration: 1 (1 min or 60 sec on average) Contraction pattern: Irregular Contraction intensity: Strong Intrauterine tone measurement: contractions are palpated strong station: 0 (head well applied to cervix) Amniotic membrane status: Ruptured status: Category I Comments: has had occasion decels to 90 however recover with position change. LTV is good and accels are present Assessment and Plan Assessment: other (patient appears to be in latent phase labor on her own without pitocin. will not start pitocin unless have less than three contractions in a ten minute. comfortable with 180 montivideo units) Plan: continuous present management Comments: discussed maternal and obstetric indications for CS with stated understanding by the patient and her Urinary Catheter Management Urinary Catheter Management Urethral: Cath placed during this visit: yes Urethral indwelling: Yes Reason for continuing: epidural catheter Insertion date: 06/24/24 Insertion time: 06:00 (APPROXIMATE)
[2024-06-25] MEDS: ROPIVACAINE HCL/PF 400 MG/200 ML PREMIX 6 MG EPIDURAL (16:15)
[2024-06-25] MEDS: CEFAZOLIN SODIUM/DEXTROSE,ISO 2 GM/50 ML PIGGYBACK IV ×2 (17:10→23:30)
[2024-06-25] MEDS: FAMOTIDINE/PF 20 MG/2 ML VIAL IV (17:10)
[2024-06-25] MEDS: CITRIC ACID/SODIUM CITRATE 30 ML SOLUTION ORACIT SHOHL'S SOLN PO (17:10)
[2024-06-25] MEDS: METOCLOPRAMIDE HCL 10 MG/2 ML VIAL IVP (17:10)
--- NOTE | 2024-06-25 17:13 | PM.OBPNL ---
Pelvic Exam Dilation (cm): 6 Effacement (%): 80 Contractions Monitor mode: Internal Contraction frequency: 3 (q 3 to 5 minutes) Contraction pattern: Regular Contraction phase: Nadine Contraction intensity: Moderate to Strong Intrauterine tone measurement: contractions are palpated strong station: -1 Amniotic membrane status: Leaking status: Category II Urinary Catheter Management Urinary Catheter Management Urethral: Cath placed during this visit: yes Urethral indwelling: Yes Reason for continuing: epidural catheter Insertion date: 06/24/24 Insertion time: 06:00 (APPROXIMATE)
[2024-06-25] MEDS: LACTATED RINGER'S SOLUTION 1,000 ML 50 ML IV ×2 (18:35→18:36)
--- NOTE | 2024-06-25 19:09 | PM.OBPRCCS ---
Procedure Pre-op/Post-op diagnoses: Pre-Op/Post-Op Diagnoses Operation Date: 06/25/24 17:00 <No data on this case meets the specified criteria> Procedure: Procedures Operation Date: 06/25/24 17:00 Actual Procedure Side Surgeon p Not Applicable Radha Tomas MD Narrative: Procedure Pre-op/Post-op diagnoses: CAT III TRACING, COMPLETE DILATION, SUSPECT COMPOUND PRESENTATION, NO PIT RUNNING AT ALL TODAY, EPIDURAL IN, CALLED A CS Procedure: CALLED TO HOSPITAL, RN REPORTS NONREASSURING HEART TRACING, HERE IN 12 MIN, COMPLETELY DILATED BUT PLUS ONE STATION AND SUSPECT COMPOUND PRESENTATION. (TURNED OUT TO BE BROW PRESENTATION SIGNIFICANT BRUISING OVER BABY'S BROW). TO OR FOR A CS. EPIDURAL DOSED. HAD ALREADY EXPLAINED REASON FOR EMERGENCY CS. POSITIONED ON TABLE. NO TIME OUT. IODINE POURED OVER ABDOMENT AND STERILE DRAPES PLACED. ANESTHESIA LEVEL ASSESSED. PFANNENSTIEL INCISION MADE 2 FB ABOVE PUBIC BONE. INCISION CARRIED DOWN TO FASCIA. FASCIA NICKED IN MIDLINE. SUPERIOR AND INFERIOR BORDERS OF FASCIA FROM RECTUS ABDOMINIS MUSCLE WITH CAUTERY ON CUTTING CURRENT (40). RECTUS ABDOMINUS MUSCLE WITH HEMOSTAT, PERITONEUM ID'D AND BLUNTLY OPENED WITH HEMOSTAT AND OPENING MANUALLY WIDENED. BLADDER BLADE POSITIONED. LOWER UTERINE SEGMENT INCISED TWO INCHES AND THIS OPENING MANUALLY WIDENED. THICK MECONIUM PRESENT. BROW PRESENTATION. HEAD DEEP IN PELVIS. CIRCULATING NURSE PUSHED HEAD UP FROM VAGINA SURGEON CUPPED HEAD IN RIGHT HAND AND BROUGHT CEPHALAD TO HYSTEROTOMY. HEAD DELIVERED WITH FUNDAL PRESSURE AND THERE WAS NO NUCHAL CORD THOUGH UMBILICAL CORD ALONGSIDE HEAD. NOT CRYING ON DELIVERY. UMBILICAL CORD CLAMPED AND CUT AND HANDED TO NRP TEAM FOR ASSESSMENT AND CARE. CORD PH OBTAINED. SEE RECORD FOR RESULT. CORD BLOOD OBTAINED. APGARS WERE 2 9 9 . PLACENTA MANUALLY EXTRACTED. SENT TO PATHOLOGY FOR SGA AND THICK MECONIUM. UTERUS EXTERIORIZED AND MANUALLY CLEARED OF CLOT AND DEBRIS. LOWER UTERINE SEGMENT CLOSED WITH O VICRYL IN SINGLE LAYER LOCKING EACH STITCH. POSTERIOR CULDESAC IRRIGATED, UTERUS RETURNED TO NORMAL ANATOMIC POSITION. HYSTEROTOMY CLOSURE HEMOSTATIC AND YOANDY POWDER APPLIED. LAP SPONGE, INSTRUMENT AND SUTURE COUNT CORRECT TIMES 3. FASCIA CLOSED WITH O VICRYL. SUBCU TISSUE CLOSED WITH 4-0 MONOCRYL AND SKIN CLOSED WITH 4-0 MONOCRYL WITH SUBCUTICULAR STITCH. SUBCUTANEOUS TISSUE CLOSED WITH RUNNING STITCH. STERILE DRESSING APPLIED AND TRANSPORTED TO PACU. EPIDURAL ADEQUATE BUT PATIENT INVOLUNTARILY PUSHING BOWEL OUT SO HAD TO BE INTUBATED WITH GENERAL ANESTHESIA. Adding Machine Mechanic: Hailey Fishman Estimated blood loss (mL): 500 Disposition: PACU Anesthesia type: CONVERTED TO GA Complications: NONE Narrative: SEE ABOVE. APGARS 2/9. ARTERIAL PH: [phone] VENOUS PH: [phone]
[2024-06-25] MEDS: OXYTOCIN/0.9 % SODIUM CHLORIDE 20 UNITS/1,000 ML PLAST..BAG 125 UNIT IV (19:40)
[2024-06-25] MEDS: ACETAMINOPHEN 500 MG TABLET 1000 MG PO (20:36)
[2024-06-25] MEDS: KETOROLAC TROMETHAMINE 30 MG/ML VIAL IVP (23:18)
[2024-06-26] VITALS (9 sets, daily range): BP systolic 125–135; BP diastolic 65–92; PULSE 76–86; TEMP 36.8–37.2; O2SAT 97
[2024-06-26] MEDS: ACETAMINOPHEN 500 MG TABLET 1000 MG PO ×3 (05:33→21:12)
--- NOTE | 2024-06-26 07:18 | PC.NURSE ---
Report to Popeye Siegel RN
[2024-06-26 08:55] LABS: Basophils Percent Auto 0.2 % (0.2-2.0); Eosinophils Percent Auto 0.2 % (0.9-7.0); Hemoglobin 9.7 g/dL (12.0-16.0); Immature Granulocytes Abs Auto 0.07 10^3/uL (0.00-0.03); Immature Granulocytes Pct Auto 0.5 % (0.0-0.5); Lymphocytes Absolute Auto 1.2 10^3/uL (1.2-3.8); Lymphocytes Percent Auto 9.1 % (20.5-60.0); Mean Corpuscular HGB Conc 34.6 g/dL (29.9-35.2); Mean Corpuscular Hemoglobin 32.3 pg (26.7-34.0); Mean Corpuscular Volume 93.3 fL (81.0-99.0); Mean Platelet Volume 13.6 fL (9.5-13.5); Monocytes Absolute Auto 0.8 10^3/uL (0.3-0.8); Monocytes Percent Auto 6.4 % (1.7-12.0); Neutrophils Absolute Auto 10.9 10^3/uL (1.4-6.5); Neutrophils Percent Auto 83.6 % (43.0-75.0); Platelet Count 117 10^3/uL (150-450); Red Cell Distribution Width 12.9 % (11.0-15.0); White Blood Count 13.1 10^3/uL (4.0-11.0)
[2024-06-26] MEDS: KETOROLAC TROMETHAMINE 30 MG/ML VIAL IVP ×2 (08:56→16:02)
[2024-06-26] MEDS: ENOXAPARIN SODIUM 40 MG/0.4 ML SYRINGE SUBQ (08:56)
[2024-06-26] MEDS: DOCUSATE SODIUM 100 MG CAPSULE PO ×2 (08:56→21:11)
--- NOTE | 2024-06-26 12:38 | PM.OBPN ---
OB - PN: Subj Subjective Patient comments: no complaints, pain well controlled, tolerating diet and flatus present [place] infant status: doing well and bottle [place] feeding status: exclusively bottle feeding Exam Narrative Exam Narrative: feels well, ambulating, voicing no complaints, hemoglobin 9 plus, urine clear and neal out, incision dry and intact Constitutional Vital Signs, click to edit/add: Last Vital Signs Temp 98.2 F 06/26/24 04:06 Pulse 76 06/26/24 12:24 Resp 16 06/26/24 04:06 BP 125/92 H 06/26/24 12:24 Pulse Ox 97 06/26/24 03:58 O2 Del Method Room Air 06/26/24 03:58 Documenting provider has reviewed patient's vital signs: yes Common normals: no apparent distress, oriented x3, no limitations, healthy appearing and well nourished General appearance: cooperative and well kempt Nutritional appearance: overweight Orientation/consciousness: Yes awake HENMT Common normals: normocephalic and head/scalp atraumatic Eye Common normals: PERRL Pupil: accommodation reflex normal Neck & C-Spine Common normals: full ROM and supple Respiratory Common normals: normal respiratory effort Cardio Common normals: regular rate and regular rhythm GI Common normals: Normal to inspection, nondistended, normoactive bowel sounds present, soft to palpation and non-tender Common normals: no CVA tenderness Back & Pelvis Common normals: no thoracic nor lumbar tenderness Extremity Common normals: normal to inspection, full ROM and no calf tenderness Neuro Common normals: CN's II-XII intact bilaterally, moves all extremities, no focal motor deficits and no sensory deficits noted Motor exam: strength 5/5 throughout Psych Common normals: mental status grossly normal, thought process normal, cooperative, affect normal and speech normal Results Labs Labs: Short CBC 06/26/24 Range/Units 07:58 WBC 13.1 H (4.0-11.0) 10^3/uL Hgb 9.7 L (12.0-16.0) g/dL Hct 28.0 L (36.0-48.0) % Plt Count 117 L (150-450) 10^3/uL Urinary Catheter Management Urinary Catheter Management Urethral: Cath placed during this visit: yes, but has since been removed by the nurse Urethral indwelling: No Insertion date: 06/24/24 Insertion time: 06:00 (APPROXIMATE) Removal date: 06/26/24 Removal time: 08:00 OB - PN: A/P Assessment and Plan (1) S/P primary low transverse : Assessment and Plan: HAD A CS FOR CAT III TRACING. BABY DOING WELL. MOM DOING WELL. JUNIOR ADMINISTRATIVE ASSISTANT KATZ OF ABSENCE OF RHOGAM AT 28 WEEKS. SCAN NEG SO WILL RECEIVE ONLY ONE DOSE OF RHOGAM. Plan SPORTS BRA ON 22/06 BOTTLE FEEDING. AMBULATE. ROUTINE CARE Plan - Plan: routine postop care Time Spent with Patient Time: Total time spent is greater than 50% in coordination of care (as documented) at patient's floor/unit and/or counseling patient: Total time spent with greater than 50% in coordination of care (as documented) at patient's floor/unit and/or counseling patient: 25 - 35 minutes
[2024-06-26] MEDS: RHO(D) IMMUNE GLOBULIN 1,500 UNIT SYRINGE 1500 UNIT IV (19:07)
[2024-06-26] MEDS: IBUPROFEN 400 MG TABLET 800 MG PO (23:16)
[2024-06-27] MEDS: ACETAMINOPHEN 500 MG TABLET 1000 MG PO ×3 (05:08→21:30)
[2024-06-27 08:15] VITALS: TEMP 37.1
[2024-06-27] MEDS: IBUPROFEN 400 MG TABLET 800 MG PO ×2 (08:24→16:45)
[2024-06-27] MEDS: DOCUSATE SODIUM 100 MG CAPSULE PO ×2 (08:25→21:30)
[2024-06-27] MEDS: ENOXAPARIN SODIUM 40 MG/0.4 ML SYRINGE SUBQ (08:26)
--- NOTE | 2024-06-27 12:04 | PM.OBPN ---
OB - PN: Subj Subjective Patient comments: no complaints [place] status: doing well feeding status: exclusively bottle feeding Exam Narrative Exam Narrative: feels good, voicing no complaints Constitutional Vital Signs, click to edit/add: Last Vital Signs Temp 98.8 F 06/27/24 08:15 Pulse 86 06/26/24 23:21 Resp 16 06/27/24 08:15 BP 131/72 06/26/24 23:21 Pulse Ox 97 06/26/24 16:15 O2 Del Method Room Air 06/27/24 08:15 Documenting provider has reviewed patient's vital signs: yes Common normals: no apparent distress and oriented x3 HENMT Common normals: normocephalic and head/scalp atraumatic Eye Common normals: PERRL Pupil: accommodation reflex normal Neck & C-Spine Common normals: full ROM Respiratory Common normals: normal respiratory effort Cardio Common normals: regular rate and regular rhythm GI Common normals: Normal to inspection, nondistended, normoactive bowel sounds present, soft to palpation and non-tender Common normals: no CVA tenderness Back & Pelvis Common normals: no thoracic nor lumbar tenderness Extremity Common normals: normal to inspection, full ROM and no calf tenderness Neuro Common normals: CN's II-XII intact bilaterally, moves all extremities, no focal motor deficits and no sensory deficits noted Motor exam: strength 5/5 throughout Psych Common normals: mental status grossly normal, thought process normal, cooperative, affect normal and speech normal Urinary Catheter Management Urinary Catheter Management Urethral: Cath placed during this visit: yes, but has since been removed by the nurse Urethral indwelling: No Insertion date: 06/24/24 Insertion time: 06:00 (APPROXIMATE) Removal date: 06/26/24 Removal time: 08:00 OB - PN: A/P Assessment and Plan (1) S/P primary low transverse : Assessment and Plan: clinical exam nonfocal, ambulating, mood good, feels well day 2 after emergency primary LTCS for CAT III tracing, passing gas, urinating without problem Plan CONTINUE CURRENT POST OP POST CARE, START IRON DAILY Time Spent with Patient Time: Total time spent is greater than 50% in coordination of care (as documented) at patient's floor/unit and/or counseling patient: Total time spent with greater than 50% in coordination of care (as documented) at patient's floor/unit and/or counseling patient: 25 - 35 minutes
[2024-06-27] MEDS: IRON PS COMPLEX/B12/FOLIC ACID CAPSULE 1 CAP PO (14:00)
[2024-06-27 16:40] VITALS: TEMP 36.7
--- NOTE | 2024-06-27 19:28 | W.PC.ACHO ---
Registration Status: ADM IN Primary Language: Nigerien Preferred Language: Nigerien Report given at 1925 to Lisa Kramer RN. Active Medications Generic Name Dose Route Start Last Admin Trade Name Freq PRN Reason Stop Dose Admin Acetaminophen 1,000 mg 06/25/24 21:00 06/27/24 14:00 Acetaminophen 500 Mg Tablet PO 06/27/24 21:01 1,000 mg Q8H RICKY Administration Al Hydroxide/Mg Hydroxide 2,400 mg 06/25/24 19:16 Magnesium Hydroxide 2,400 Mg/10 Ml Oral.Susp PO Q6H PRN Dyspepsia Docusate Sodium 100 mg 06/26/24 09:00 06/27/24 08:25 Docusate Sodium 100 Mg Capsule PO 100 mg BID RICKY Administration Enoxaparin Sodium 40 mg 06/26/24 08:00 06/27/24 08:26 Enoxaparin Sodium 40 Mg/0.4 Ml Syringe SUBQ 40 mg Q24H RICKY Administration Folic Acid/Iron/Vitamin B12 1 cap 06/27/24 12:15 06/27/24 14:00 Iron Ps Complex/B12/Folic Acid Capsule PO 1 cap QD RICKY Administration Sodium Chloride 1,000 mls @ 125 mls/hr 06/23/24 16:30 06/25/24 12:17 Sodium Chloride 0.9% 1,000 Ml IV 125 mls/hr .Q8H RICKY Administration Ibuprofen 800 mg 06/26/24 23:00 06/27/24 16:45 Ibuprofen 400 Mg Tablet PO 800 mg Q8H PRN Administration Pain Ondansetron HCl 4 mg 06/23/24 16:10 Ondansetron 4 Mg Rapdis Tablet SL Q6H PRN Nausea And Vomiting Ondansetron HCl 4 mg 06/25/24 19:16 Ondansetron Pf 4 Mg/2 Ml Vial IV Q6H PRN Nausea And Vomiting Oxycodone/Acetaminophen 1 tab 06/25/24 19:11 Oxycodone Hcl/Acetaminophen 5mg/325mg PO Q4H PRN Pain Scale 4-6 Simethicone 80 mg 06/25/24 19:16 Simethicone 80 Mg Tab.Chew PO QID PRN Abdominal Distention Temazepam 15 mg 06/24/24 23:22 06/24/24 23:39 Temazepam 15 Mg Capsule PO 15 mg QHS PRN Administration Sleep Respiratory Oxygen Delivery Method Room Air Oxygen Delivery Method Room Air Oxygen Delivery Method Room Air Oxygen Delivery Method Room Air Oxygen Delivery Method Room Air Oxygen Delivery Method Room Air Bowels Date of Last Bowel Movement 06/27/24 Renal Bladder Pattern Continent Bladder Pattern Continent Catheter Urinary Catheter Date of 06/24/24 Insertion [Urethral] Urinary Catheter Time of 06:00 Insertion [Urethral] Date Urinary Catheter Removed 06/26/24 [Urethral] Time Urinary Catheter 08:00 Discontinued [Urethral]
[2024-06-28] MEDS: IBUPROFEN 400 MG TABLET 800 MG PO ×2 (00:21→08:06)
[2024-06-28 00:45] VITALS: BP 120/93; TEMP 36.8
[2024-06-28] MEDS: ACETAMINOPHEN 500 MG TABLET 1000 MG PO (06:03)
[2024-06-28 08:01] VITALS: TEMP 36.8
[2024-06-28 08:02] VITALS: BP 154/68; PULSE 60
--- NOTE | 2024-06-28 08:02 | PC.NURSE ---
bp unable per monitor took 4 times to get this reading, fiction writer then does manual bp
[2024-06-28] MEDS: ENOXAPARIN SODIUM 40 MG/0.4 ML SYRINGE SUBQ (08:04)
[2024-06-28] MEDS: IRON PS COMPLEX/B12/FOLIC ACID CAPSULE 1 CAP PO (08:06)
[2024-06-28] MEDS: DOCUSATE SODIUM 100 MG CAPSULE PO (08:06)
[2024-06-28 08:09] VITALS: BP 122/70; PULSE 72
--- NOTE | 2024-06-28 10:07 | P.DS_ITS ---
DS: Providers Provider Date of admission: 06/23/24 16:04 Primary care physician: Non-Staff PhysicianMD Admitting clinician: Arvind Tejada Consults: 06/23/24 Consult to Anesthesiology Routine Consulting Provider: Radha Tomas Reason for consultation: epidural Discharging clinician: Radha Tomas DS: Diagnosis Discharge Diagnosis (1) S/P primary low transverse : Assessment and plan: S/P CAT A PRIMARY LTCS FOR CATIII TRACING, DOING WELL, ANXIOUS TO GO HOME, NO MEDICAL PROBLEMS Plan DISCHARGE HOME OB - DS: Summary Hospital Course Hospital Course: UNCOMPLICATED Time spent discussing smoking cessation with patient: 3 to 10 minutes Peripartum Data - Procedures: Procedures Operation Date: 06/25/24 17:00 Actual Procedure Side Surgeon p Not Applicable Radha Tomas MD Peripartum Data - Vaginal Delivery Procedures: Procedures Operation Date: 06/25/24 17:00 Actual Procedure Side Surgeon p Not Applicable Radha Tomas MD Complications complications: none Delivery method: emergency section Gender: male Discharge plan: home Status at Discharge Cognitive/behavioral status at discharge: WNL Functional status at discharge: independent ambulation Time Spent with Patient Time attestation: Total time spent providing and/or coordinating discharge services: Time spent: less than 30 minutes Exam Narrative Exam Narrative: VOICING NO COMPLAINTS Constitutional Vital Signs, click to edit/add: Last Vital Signs Temp 98.2 F 06/28/24 08:01 Pulse 72 06/28/24 08:09 Resp 18 06/28/24 08:01 BP 122/70 06/28/24 08:09 Pulse Ox 97 06/26/24 16:15 O2 Del Method Room Air 06/28/24 08:00 Documenting provider has reviewed patient's vital signs: yes Common normals: no apparent distress, oriented x3, no limitations, alert and w ell nourished General appearance: cooperative and comfortable HENMT Common normals: normocephalic and head/scalp atraumatic Eye Common normals: PERRL Pupil: accommodation reflex normal Neck & C-Spine Common normals: full ROM and supple Respiratory Common normals: normal respiratory effort Cardio Common normals: regular rate and regular rhythm GI Common normals: Normal to inspection, nondistended, normoactive bowel sounds present, soft to palpation and non-tender Common normals: no CVA tenderness Back & Pelvis Common normals: no thoracic nor lumbar tenderness Extremity Common normals: normal to inspection, full ROM and no calf tenderness Neuro Common normals: CN's II-XII intact bilaterally, moves all extremities, no focal motor deficits and no sensory deficits noted Psych Common normals: mental status grossly normal, thought process normal, cooperative, affect normal and speech normal Discharge Plan Discharge Disposition: Home, Self-Care Condition: Good Assessment: condition good, no medical problems, vss, baby ok for discharge, bonding well Plan of Treatment: discharge home Discharge Medications: Continued valacyclovir 500 mg tablet 500 mg PO DAILY aspirin 81 mg tablet,chewable 81 mg PO DAILY Activity: resume usual activities as tolerated Activity Detail: walking only exercise for 6 weeks, may climb stairs, no bathtub 4 weeks, may shower, no sex six weeks, no Diet: regular diet Print Language: Kiswahili Activity Restrictions/Additional Instructions: as stated above Forms: Delivery - Discharge, Portal Instructions Discharge location: home
== END 2024-06-28 11:00 | disposition home or self-care (01) | DRG 540 ==
PROVIDERS: Admitting Provider Obstetrics & Gynecology; Visit Provider Obstetrics & Gynecology
PROC: 10907ZC Drainage of Amniotic Fluid, Therapeutic from Products of Conception, Via Natural or Artificial Opening (ICD-10-PCS; CPT 59514; principal; 2024-06-25 17:00)
DX: O76 Abnormality in fetal heart rate and rhythm complicating labor and delivery (principal); O99.844 Bariatric surgery status complicating childbirth; O99.334 Smoking (tobacco) complicating childbirth; F17.210 Nicotine dependence, cigarettes, uncomplicated; O99.214 Obesity complicating childbirth; E66.01 Morbid (severe) obesity due to excess calories; Z3A.39 39 weeks gestation of pregnancy; Z37.0 Single live birth; O32.3XX0 Maternal care for face, brow and chin presentation, not applicable or unspecified; O77.0 Labor and delivery complicated by meconium in amniotic fluid; O98.32 Other infections with a predominantly sexual mode of transmission complicating childbirth; A60.00 Herpesviral infection of urogenital system, unspecified; O99.323 Drug use complicating pregnancy, third trimester; F19.11 Other psychoactive substance abuse, in remission
CPT/HCPCS: 36415; 59050; 80307; 85025; 85027; 85461; 86850; 86900; 86901; 88307; 96372; 96374; 96375; 96376; J0330; J0690; J1100; J1170; J1650; J1885; J2250; J2274; J2300; J2405; J2590; J2704; J2765; J2790; J2795; J3010

== ENCOUNTER 2025-04-20 09:02 | Outpatient (OUT) | payer OTHER, SELFPAY ==
--- OUTSIDE RECORDS SUMMARY | 2025-03-30 11:37 | XMS_ITS ---
Author Name Auto Generated Organization OH[facility] Care Team Providers Care Box Annealer Name Role Phone Thom Radha Thapa Attending Unavailable Radha Tomas Admitting Unavailable MAKAYLA, LIA Attending Unavailable MIRIAN, MARITZA Attending Unavailable MAKAYLA, LIA Attending Unavailable MAKAYLA, LIA Attending Unavailable MAKAYLA, LIA Attending Unavailable MAKAYLA, LIA Attending Unavailable MAKAYLA, LIA Attending Unavailable MIRIAN, MARITZA Attending Unavailable MIRIAN, MARITZA Attending Unavailable MAKAYLA, LIA Attending Unavailable MAKAYLA, LIA Attending Unavailable MAKAYLA, LIA Attending Unavailable KAI FERGUSON Attending Unavailable PROBLEMS DATE TYPE CONDITION / CODE ATTENDING STATUS [facility] 07/05/2024 Unknown Contusion of abdominal wall, initial encounter / S30.1XXA(ICD-10) KAI FERGUSON [facility] 07/05/2024 Unknown Post-op Problem / FREETEXT(AOF) KAI FERGUSON [facility] 07/05/2024 Unknown Post-Op Issue / UNK(Unknown) [facility] PROCEDURES No Procedure Records Found RESULTS US PELVIS TRANSVAGINAL Observed: 025 10:50 AM Status: F Source: [facility] EPIC Order Comment: US PELVIS TRA NSVAGINAL Patient's last menstrual period was 02/27/2025 (approximate). 274 lb EXAM: Pelvic Ultrasound, Tra nsvaginal: REASON FOR EXAM: IUD placement, heavy frequent periods. COMPARISON: None. TECHNIQUE: Longitudinal and transverse grayscale images with color Doppler of the pelvis obtained endovaginally. FINDINGS: The uterus is of normal size and echogenicity, anteverted/retroflexed. The endometrium is hyperechoic and not thickened. Echogenic linear defect at the lower uterine segment anteriorly consistent with a scar. No significant pelvic free fluid. The right ovary is slightly enlarged. Anechoic 2.04 x 2.26 x 2.41 cm nodule with enhancement the posterior wall and posterior acoustic enhancement. Vascular flow identified in the right ovary. The left ovary is not visualized sonographically. Measurements: Uterus: 7.5 x 2.9 x 4.9 cm Volume: 53.7 mL EM: 4 mm Right Ovary: 3.3 x 2.8 x 3.5 cm Volume: 16.8 mL Left Ovary: N/V IMPRESSION: 1. Shadowing structure within the endometrium -- endometrial calcifications versus IUD. Slightly eccentric. 2. Right ovarian cyst. 3. Left ovary not visualized. This report is generated using voice recognition reporting ([employer]). On occasion, [employer] erroneously drops words from the report or replaces the spoken word with a similar sounding word. Please call with any questions/concerns regarding the report. Dictated and transcribed 03/30/2025/judith This report has been electronically signed and approved by the interpreting radiologist. CBC AND AUTO DIFF Collected: 07/05/2024 9:07 PM Status: COMPLETED Source: [facility] TYPE CODE TESTS RESULT OUT OF RANGE REFERENCE UNITS LAB WBC(LOINC) WBC COUNT 8.3 4.0-11.0 X10E9/L LAB RBC(LOINC) RBC COUNT 2.86 Low 3.80-5.20 X10E12/L LAB HGB(LOINC) HEMOGLOBIN 9.0 Low 11.7-15.5 g/dL LAB HCT(LOINC) HEMATOCRIT 25.9 Low 35-47 % LAB MCV(LOINC) MCV 90 80-100 fL LAB MCH(LOINC) MCH 31.4 27-34 pg LAB MCHC(LOINC) MCHC 34.7 32-36 g/dL LAB RDW(LOINC) RDW 13.0 11.5-15.0 % LAB PLTC(LOINC) PLATELET COUNT 239 150-450 X10E9 /L LAB MPV(LOINC) MPV 8.9 7-12 fL LAB NEUT(LOINC) % NEUTROPHILS 70.6 % LAB LYMP(LOINC) % LYMPHOCYTES 21.5 % LAB MONO(LOINC) % MONOCYTES 6.5 % LAB EOS(LOINC) % EOSINOPHILS 1.1 % LAB BASO(LOINC) % BASOPHILS 0.3 % LAB ANEUT(LOINC) ABSOLUTE NEUTROPHIL 5.8 1.5-6.6 X10E9/L LAB ALYMP(LOINC) ABSOLUTE LYMPHOCYTE 1.8 1.0-3.5 X10E9/L LAB AMONO(LOINC) ABSOLUTE MONOCYTE 0.5 0-0.9 X10E9/L LAB AEOS(LOINC) ABSOLUTE EOSINOPHIL 0.1 0.0-0.4 X10E9/L LAB ABASO(LOINC) ABSOLUTE BASOPHIL 0.0 0.0-0.2 X10E9/L Performed By: #### SHEA, SONU #### [facility] ([id number]) [address] [place] [address], [place] [address] COMPREHENSIVE METABOLIC PANEL Collected: 2023 9:07 PM Status: COMPLETED Source: [facility] TYPE CODE TESTS RESULT OUT OF RANGE REFERENCE UNITS LAB NA(LOINC) SODIUM 139 134-146 mmol/L LAB K(LOINC) POTASSIUM 3.7 3.5-5.0 mmol/L LAB CL(LOINC) CHLORIDE 110 High 98-109 mmol/L LAB CO2(LOINC) CARBON DIOXIDE 23 22-32 mmol/L LAB AGAP(LOINC) ANION GAP 6 5-15 mmol/L LAB BUN(LOINC) BLOOD UREA NITROGEN 15 5-23 mg/dL LAB CRET(LOINC) CREATININE 0.50 0.40-1.00 mg/dL Result Comment: METHOD TRACE ABLE TO IDMS STANDARD LAB GLU(LOINC) GLUCOSE 93 65-99 mg/dL LAB CA(LOINC) CALCIUM 7.8 Low 8.5-10.5 mg/dL LAB TP(LOINC) TOTAL PROTEIN 5.9 Low 6.0-8.0 g/dL LAB ALB(LOINC) ALBUMIN 2.6 Low 3.2-5.3 g/dL LAB ALK(LOINC) ALKALINE PHOSPHATASE 84 39-130 U/L LAB AST(LOINC) AST 14 0-41 U/L LAB ALT1(LOINC) ALT 16 0-31 U/L LAB TBIL(LOINC) BILIRUBIN,TOTAL 0.4 0.3-1.2 mg/d L LAB EGFR(LOINC) eGFR (CKD-EPI) NON-RACE DEPENDENT >90 >59 ml/min/1 .73sq.m Result Comment: Reported eGFR is based on the CKD-EPI 2020 equation that does not use a race coefficient. Performed By: #### SHEA, CBCA #### [facility] ([id number]) [address], [place] [address] L Observed: 06/25/2024 6:29 PM Status: F Source: [facility] Specimen: [id number] Received: 06/27/24 Status: WILBER Anders Num: [id number] Spec Type: Surgical Subm Dr: Radha Tomas MD Tissues: A Placenta - 3rd Trimester (Greater than 28 weeks) (PLACENTA) Procedures: HE/3, Gross/Micro L5 Age/ Patient Sex Location Account Attending Physician EvaSabrina E 34/F LABELL [id number] Radha Tomas MD SPEC NUM: [id number] RECD: 06/27/24 STATUS: WILBER ANDERS NUM: [id number] MELISSA: 06/25/[address]: Radha Tomas MD ENTERED: 06/27/[address]: Ashish,Lab SPEC TYPE: Surgical DEPT: SHREYA GUIDO ORDERED: HE/3, Gross/Micro L5 ORDERED: HE/3, Gross/Micro L5 Pathological Diagnosis Placenta, With: Umbilical Cord: Three Vessel Cord, Unremarkable. Membranes: Unremarkable. Placenta: Mature Chorionic Villi, Consistent With Third Trimester Placenta. No Parenchymal Lesions Are Identified. Clinical Information 39w 1d, apgars 2/9 thick meconium, SGA. Failure to progress Gross Description Received in formalin labeled with the patient's name, date of and placenta is a martínez placental disc with very minimal attached membranes, and attached umbilical cord. The 21.1 x 1.1 cm, three-vessel, ware umbilical cord inserts eccentrically into the chorionic plate, 2.4 cm from the placental disc margin. The cord has normal spiraling with no knots or lesions present. The marginally inserted membranes are ware with green staining, slippery and opaque with the point of rupture from the disc margin that cannot be determined. Intramembranous blood vessels are absent. The chorionic plate is hawkins-blue with patent vessels that span out in formalin over the surface. The maternal surface has intact, lobulated cotyledons with ware- pink, spongiform parenchyma. No nodules or suspicious areas are present. The 14.9 x 14.1 x 2.1 cm placental disc, devoid of membranes and cord, has a trimmed weight ----- ------- Specimen: [id number] Received: 06/27/24 Status: WILBER Anders Num: [id number] Spec Type: Surgical Subm Dr: Radha Tomas MD Tissues: A Placenta - 3rd Trimester (Greater than 28 weeks) (PLACENTA) Procedures: /3, Gross/Micro L5 ----- ------- Patient: Sabrina Velasquez [id number] (Continued) ----- ------- Specimen: [id number] Received: 06/27/24 (Continued) Gross Description (Continued) Signed (signature on file) Flavia Nicholson MD 06/30/24 [id number] ----- ------- Specimen: [id number] Received: 06/27/24 Status: WILBER Anders Num: [id number] Spec Type: Surgical Subm Dr: Radha Tomas MD Tissues: A Placenta - 3rd Trimester (Greater than 28 weeks) (PLACENTA) Procedures: HE/Lio, Gross/Micro L5 ----- ------- Patient: Sabrina Velasquez [id number] (Continued) ----- ------- Specimen: [id number] Received: 06/27/24 (Continued) Gross Description (Continued) of 322 grams. Summary of sections: A1: umbilical cord at end and membrane roll including possible site of rupture A2: umbilical cord at placental end and parenchyma adjacent to cord insertion site A3: random mid-zonal section CPT Codes 13434 ----- ------- ----- ------- Specimen: [id number] Received: 06/27/24-1251 Status: WILBER Anders Num: [id number] Spec Type: Surgical Subm Dr: Radha Tomas MD Tissues: A Placenta - 3rd Trimester (Greater than 28 weeks) (PLACENTA) Procedures: HE/3, Gross/Micro L5 ----- ------- Patient: Sabrina Velasquez [id number] (Continued) ----- ------- Signed (signature on file) Flavia Nicholson MD 06/30/24 171 ALLERGIES DATE TYPE / CODE NAME / CODE REACTION SEVERITY SOURCE Drug Class/[id number](SNO MED CT) NO KNOWN ALLERGIES [facility] ENCOUNTERS ADMIT/DISCHARGE ACCOUNT NUMBER ADMITTING ENCOUNTER CLASS LOCATION SOURCE 03/30/2025/03/30/20 [id number] [facility] EPIC 03/30/2025/03/30/20 [id number] [facility] EPIC 03/02/2025/03/02/20 [id number] Amb[facility] EPIC 08/16/2024/08/16/20 24 [id number] Ambulatory Building:[facility] EPIC 08/09/2024/08/09/20 24 [id number] Ambulatory Building:[facility] EPIC 07/06/2024/07/06/20 24 [id number] Ambulatory Building:[facility] EPIC 07/05/2024/07/05/20 24 [id number] Emergency Building:[facility] _EDRoom: 12Bed: 12 [facility] 07/04/2024/07/04/20 24 [id number] Ambulatory Building:[facility] EPIC 06/25/2024/06/25/20 24 [id number] [facility] 06/21/2024/06/21/20 24 [id number] Ambulatory Building:[facility] EPIC 06/14/2024/06/14/20 24 [id number] Ambulatory Building:[facility] EPIC 06/09/2024/06/09/20 24 [id number] Ambulatory Building:[facility] EPIC 06/01/2024/06/01/20 24 [id number] Ambulatory Building:[facility] EPIC 05/19/2024/05/19/20 24 [id number] Ambulatory Building:[facility] EPIC 05/04/2024/05/04/20 24 [id number] Ambulatory Building:[facility] PAYERS ENCOUNTER GUARANTOR PAYER SUBSCRIBER SOURCE 03/30/2025 SABRINA PENNB: [place], [place] [address]Psx: () Primary Insurance:CARESOURCE MEDICAIDPolicy Number: [id number] Date:2023-11-02 SABRINA PENNB: [id number] [place] [address] [facility] 03/30/2025 SABRINA PENNB: [place], [place] [address]Ryv: (HP) Primary Insurance:CARESOURCE MEDICAIDPolicy Number: [id number] Date:2023-11-02 SABRINA VELASQUEZDOB: [id number] [place] [address] [facility] EPIC 03/02/2025 SABRINA EVADOB: [place], [place] [address]Ctv: (HP) Primary Insurance:CARESOURCE MEDICAIDPolicy Number: [id number] Date:2023-11-02 SABRINA EVADOB: [id number] [place] [address] [facility] EPIC 08/16/2024 SABRINA VELASQUEZDOB: [place], [place] [address]Qqq: (HP) Primary Insurance:CARESOURCE MEDICAIDPolicy Number: [id number] Date:2023-11-02 SABRINA VELASQUEZDOB: [id number] [place] [address] [facility] EPIC 08/09/2024 SABRINA VELASQUEZDOB: [place], [place] [address]Tre: (HP) Primary Insurance:CARESOURCE MEDICAIDPolicy Number: [id number] Date:2023-11-02 SABRINA VELASQUEZDOB: [id number] [place] [address] [facility] EPIC 07/06/2024 SABRINA VELASQUEZDOB: [place], [place] [address]Vqu: (HP) Primary Insurance:CARESOURCE MEDICAIDPolicy Number: [id number] Date:2023-11-02 SABRINA VELASQUEZDOB: [id number] [place] [address] [facility] EPIC 07/04/2024 SABRINA PENNB: [place], [place] [address]Apv: (HP) Primary Insurance:CARESOURCE MEDICAIDPolicy Number: [id number] Date:2023-11-02 SABRINA VELASQUEZDOB: [id number] [place] [address] [facility] EPIC 06/25/2024 Primary Insuranc e:Self PayPolicy Number: Effective Date:2024-06-25 [facility]/21/2024 SABRINA VELASQUEZDOB: [place], [place] [address]Lnv: (HP) Primary Insurance:CARESOURCE MEDICAIDPolicy Number: [id number] Date:2023-11-02 SABRINA VELASQUEZDOB: [id number] [place] [address] [facility] EPIC 06/14/2024 SABRINA VELASQUEZDOB: [place], [place] [address]Eqk: (HP) Primary Insurance:CARESOURCE MEDICAIDPolicy Number: [id number] Date:2023-11-02 SABRINA VELASQUEZDOB: [id number] [place] [address] [facility] EPIC 06/09/2024 SABRINA VELASQUEZDOB: [place], [place] [address]Wpw: (HP) Primary Insurance:CARESOURCE MEDICAIDPolicy Number: [id number] Date:2023-11-02 SABRINA VELASQUEZDOB: [id number] [place] [address] [facility] EP[facility] 06/01/2024 SABRINA VELASQUEZDOB: [place], [place] [address]Yax: (HP) Primary Insurance:CARESOURCE MEDICAIDPolicy Number: [id number] Date:2023-11-02 SABRINA PENNB: [id number] [place] [address] [facility] EPIC 05/19/2024 SABRINA PENNB: [place], [place] [address]Pls: (HP) Primary Insurance:CARESOURCE MEDICAIDPolicy Number: [id number] Date:2023-11-02 SABRINA PENNB: [id number] [place] [address] [facility] EPIC 05/04/2024 SABRINA PENNB: [place], [place] [address]Uho: () Primary Insurance:CARESOURCE MEDICAIDPolicy Number: [id number] Date:2023-11-02 SABRINA PENNB: [id number] [place] [address] [facility] EPIC
--- NOTE | 2025-04-20 09:07 | XR_ITS ---
The [address] [address] Patient Name: SABRINA VELASQUEZ MRN: [id number] date: 1990 Sex: F Assigned Patient Location: [facility] Current Patient Location: [facility] Accession/Order Number: [id number] Exam Date: 04/20/2025 10:20 Report Date: 04/20/2025 10:22 At the request of: LIA BENAVIDES DO Procedure: XR abdomen 1V SINGLE VIEW ABDOMEN COMPARISON: None CLINICAL DATA: Pelvic cramping and abnormal menses. Assessment for presence of IUD. Supine view of the abdomen and pelvis was obtained. There is air and stool along the colon. No dilated small bowel loops are identified. No soft tissue masses or suspect renal calculi are seen. A T-shaped IUD is visualized within the pelvis overlying the lower sacrum on the left. The bony structures are intact. XR/XR abdomen 1V IMPRESSION: NONOBSTRUCTIVE BOWEL GAS PATTERN. IUD IDENTIFIED WITHIN THE PELVIS. Impression dictated by: Shari Andrade M.D. 04/20/2025 10:22 AM Dictation Location: [place] [address] Electronically authenticated by: [id number] Y Date: 04/20/2025 10:22
--- OUTSIDE RECORDS SUMMARY | 2025-04-20 09:07 | XMS_ITS | Encounter Summary ---
Author Organization [facility] Address [address] [place] [address] Care Team Providers Care Digital Production Artist Name Role Phone Unavailable Primary Care Provider Unavailabl e Encounter Details Date Type Department Care Team (Late st Contact Info) Description 06/15/2024 Abstract [facility] [address] [place] [address] Lizbeth Lomas LPN [address] [facility] [place] [address] Social History Tobacco Use Types Packs/Day Years Used Date Smoking Tobacco: Never Assessed Comments Yes Sex and Gender Information Value Date Recorded Sex Assigned at Female 12/03/2023 12:44 PM EST Legal Sex Female 11:35 AM EST Gender Identity Female 12/03/2023 12:44 PM EST Sexual Orientation Straight 12/03/2023 12 :44 PM EST documented as of this encounter Plan of Treatment Upcoming Encounters Date Type Department Care Team (Late st Contact Info) Description 04/27/2025 10:30 AM EDT Office Visit [facility] [address] [place] [address] Arvind Tejada DO [address] [place], [place] [id number] documented as of this encounter Visit Diagnoses Not on filedocumented in this encounter
--- OUTSIDE RECORDS SUMMARY | 2025-04-20 09:07 | XMS_ITS | Encounter Summary ---
Author Organization [facility] Address [address] [place] [address] Care Team Providers Care Foundry Superintendant Name Role Phone Unavailable Primary Care Provider Unavailabl e Encounter Details Date Type Department Care Team (Late st Contact Info) Description 06/13/2024 Abstract [facility] [address] [facility] [place] [address] [place] [address] Lizbeth Lomas LPN [address] [facility] [place] [address] Social History Tobacco Use Types Packs/Day Years [...] EDT Office Visit [facility] [address] [place] [address] [place] [address] Arvind Tejada DO [address] [place], [place] [id number] documented as of this encounter Visit Diagnoses Not on filedocumented in this encounter
--- OUTSIDE RECORDS SUMMARY | 2025-04-20 09:07 | XMS_ITS | Encounter Summary ---
Author Organization [facility] Address [address] [place] [address] Care Team Providers Care Town Planner Name Role Phone Unavailable Primary Care Provider Unavailabl e Encounter Details Date Type Department Care Team (Late st Contact Info) Description 02/24/2024 Clinisync Result Encounter [facility] External Department Unsolicited Lia Tejada, DO [facility] [place] [address] Social History Tobacco Use Types Packs/Day Years [...] 04/27/2025 10:30 AM EDT Office Visit [facility] OB [address] [place] [address] Lia Tejada, [address] [place] [address] documented as of this encounter Procedures Procedure Name Priority Date/Time Associated Diagnosis Comments US OB CERVICAL LENGTH 02/24/2024 3:02 PM EDT documented in this encounter Results * US OB CERVICAL LENGTH (02/24/2024 3:02 PM EDT) Anatomical Region Laterality Modality Other 02/24/2024 3:02 PM EDT Narrative 02/24/2024 3:05 [place] [address] Ultrasound Report Signed Patient: JOHANNA VELASQUEZ MR#: [id number] : 1990 Acct:[id number] Age/Sex: 34 / F ADM Date: 02/24/24 Loc: [facility] Attending Dr: Lia Tejada D.O. Ordering Physician: Lia Tejada D.O. Date of Service: 02/24/24 Procedure(s): US OB cervical length Accession Number(s): [id number] cc: Lia Tejada D.O.; Physician,Non-Staff Estee [address] [address] Patient Name: JOHANNA VELASQUEZ MRN: [id number] date: 1990 Sex: F Assigned Patient Location: [facility] Current Patient Location: [facility] Accession/Order Number: [id number] Exam Date: 02/24/2024 13:40 Report Date: 02/24/2024 15:02 At the request of: LIA TEJADA Procedure: US OB cervical length EXAMINATION: US OB anatomy, US OB cervical length HISTORY: ANATOMY COMPARISON: No relevant comparison available. TECHNIQUE: Transabdominal sonographic examination was performed for obstetrical and evaluation. FINDINGS: Number: 1 Heart Rate: 145.0 bpm H.B. /min Amniotic Fluid Volume: Subjectively normal Placental Location: POSTERIOR with lower margin 5.3 cm from os. Cervix Length: 3.3 cm, closed. ANATOMY: Normal Structures -cerebellum, choroid plexus, cisterna magna, lateral cerebral ventricles, orbits, midline falx, hard palate, four-chamber heart, RVOT, LVOT, stomach, kidneys, bladder, umbilical cord insertion into abdomen, three-vessel cord, cervical spine, thoracic spine, lumbar spine, sacral spine, right upper extremity, left upper extremity, right lower extremity, left lower extremity. SUBOPTIMALLY SEEN: None ABNORMALITIES: None BIOMETRY: BPD: 5.3 cm 22 weeks 0 days HC: 19.5 cm 21 weeks 5 days AC: 17.8 cm 22 weeks 5 days FL: 3.8 cm 22 weeks 2 days EFW:499.3 grams; 78% FL/AC: 21.5 FL/BPD: 72.8 HC/AC: 1.1 GESTATIONAL AGE: Age by EDC: 21 weeks 5 days FRANCISCO by EDC: 07/01/2024 Age by current US: 22 weeks 1 days FRANCISCO by current US: 06/28/2024 US/US OB cervical length IMPRESSION: 1. Single live intrauterine with growth detailed above. Electronically authenticated by: PA QUINN Date: 02/24/2024 15:02 Dictated By: Pa Quinn M.D. Signed By: 02/24/24 1505 DD/ 1502 TD/TT: Product Specialist: Procedure Note Radiology, Radiologist, MD - 02/24/2024 [place] [address] Ultrasound Report Signed Patient: JOHANNA VELASQUEZMR#: [id number] : 1990Acct:[id number] Age/Sex: 34 / FADM Date: 02/24/24 Loc: [facility] Attending Dr: Lia Tejada D.O. Ordering Physician: Lia Tejada D.O. Date of Service: 02/24/24 Procedure(s): US OB cervical length Accession Number(s): [id number] cc: Lia Tejada D.O.; Physician,Non-Staff Estee The [place] [address] Patient Name: JOHANNA VELASQUEZ MRN: [id number] date: 1990 Sex: F Assigned Patient [facility] Current Patient [facility]: [facility] Accession/Order Number: [id number] Exam Date: 02/24/2024 13:40 Report Date: 02/24/2024 15:02 At the request of: LIA TEJADA Procedure: US OB cervical length EXAMINATION: US OB anatomy, US OB cervical length HISTORY: ANATOMY COMPARISON: No relevant comparison available. TECHNIQUE: Transabdominal sonographic examination was performed for obstetrical and evaluation. FINDINGS: Number: 1 Heart Rate: 145.0 bpm H.B. /min Amniotic Fluid Volume: Subjectively normal Placental Location: POSTERIOR with lower margin 5.3 cm from os. Cervix Length: 3.3 cm, closed. ANATOMY: Normal Structures -cerebellum, choroid plexus, cisterna magna, lateral cerebral ventricles, orbits, midline falx, hard palate, four-chamberheart, RVOT, LVOT, stomach, kidneys, bladder, umbilical cord insertion intoabdomen, three-vessel cord, cervical spine, thoracic spine, lumbar spine, sacralspine, right upper extremity, left upper extremity, right lower extremity, leftlower extremity. SUBOPTIMALLY SEEN: None ABNORMALITIES: None BIOMETRY: BPD: 5.3 cm 22 weeks 0 days HC: 19.5 cm 21 weeks 5 days AC: 17.8 cm 22 weeks 5 days FL: 3.8 cm 22 weeks 2 days EFW:499.3 grams; 78% FL/AC: 21.5 FL/BPD: 72.8 HC/AC: 1.1 GESTATIONAL AGE: Age by EDC: 21 weeks 5 days FRANCISCO by EDC: 07/01/2024 Age by current US: 22 weeks 1 days FRANCISCO by current US: 06/28/2024 US/US OB cervical length IMPRESSION: 1. Single live intrauterine with growth detailed above. Electronically authenticated by: PA QUINN Date: 02/24/2024 15:02 Dictated By: Pa Quinn M.D. Signed By:02/24/24 1505 DD/ 1502 TD/TT: Product Specialist: us Lia Mallory DO [facility] Final Result documented in this encounter Visit Diagnoses Not on filedocumented in this encounter
--- OUTSIDE RECORDS SUMMARY | 2025-04-20 09:07 | XMS_ITS | Encounter Summary ---
Author Organization [facility] Address [address] [place] [address] Care Team Providers Care Dressmaker Helper Name Role Phone Unavailable Primary Care Provider Unavailabl e Encounter Details Date Type Department Care Team (Late st Contact Info) Description 06/13/2024 Abstract [facility] OB [address] [place] [address] Arvind Tejada, [address] Pat [place], [facility] Social History Tobacco Use Types Packs/Day Years [...] EDT Office Visit [facility] OB [address] [facility] [place] [address] Arvind Tejada DO [facility] [place], [place] [id number] documented as of this encounter Visit Diagnoses Not on filedocumented in this encounter
--- OUTSIDE RECORDS SUMMARY | 2025-04-20 09:07 | XMS_ITS | Encounter Summary ---
Author Organization [facility] Address [address] [place] [address] Care Team Providers Care Line Walker Name Role Phone Unavailable Primary Care Provider Unavailabl e Encounter Details Date Type Department Care Team (Late st Contact Info) Description 12/10/2023 Clinisync Result Encounter [facility] External Department Unsolicited Lia Tejada, [facility] [address] Social History Tobacco Use Types Packs/Day Years [...] 04/27/2025 10:30 AM EDT Office Visit [facility] OB [address] [facility] [address] [place] [address] Lia Tejada DO [facility] [place] [address] documented as of this encounter Procedures Procedure Name Priority Date/Time Associated Diagnosis Comments US OB TRANSVAGINAL 12/10/2023 1: 24 PM EST documented in this encounter Results * US OB TRANSVAGINAL (12/10/2023 1:24 PM EST) Anatomical Region Laterality Modality Other 12/10/2023 1:24 PM EST Narrative 12/10/2023 1:27 [place] [address] Ultrasound Report Signed Patient: JOHANNA VELASQUEZ MR#: [id number] : 1990 Acct:[id number] Age/Sex: 33 / F ADM Date: 12/10/23 Loc: US Attending Dr: Lia Tejada D.O. Ordering Physician: Lia Tejada D.O. Date of Service: 12/10/23 Procedure(s): US OB transvaginal Accession Number(s): [id number] cc: Lia Tejada D.O.; Physician,Non-Staff Estee [place] [address] Patient Name: JOHANNA VELASQUEZ MRN: [id number] date: 1990 Sex: F Assigned Patient Location: US Current Patient Location: US Accession/Order Number: [id number] Exam Date: 12/10/2023 12:17 Report Date: 12/10/2023 13:24 At the request of: LIA TEJADA Procedure: US OB transvaginal EXAMINATION: US OB transvaginal HISTORY: MISSED MENSES COMPARISON: No relevant comparison available. FINDINGS: Martínez intrauterine gestation Gestational sac: 4.2 cm, 9 weeks 4 days CRL: 4.67 cm, 11 weeks 2 days Yolk sac: 6.6 mm Heart rate: 153 beats minute Cervix: Closed, 4.8 cm The uterus is normal, anteverted, anteflexed The ovaries are normal Clinical age: 10 weeks 6 days Clinical FRANCISCO: 07/01/2024 Ultrasound age: 11 weeks 3 days Ultrasound FRANCISCO: 06/27/2024 US/US OB transvaginal IMPRESSION: Viable martínez intrauterine gestation measuring 11 weeks 3 days Electronically authenticated by: SHAY BEY Date: 12/10/2023 13:24 Dictated By: Shay Bey M.D. Signed By: 12/10/23 1327 DD/ 23 TD/TT: Guest Relations Representative: Procedure Note Radiology, Radiologist, MD - 12/10/2023 [place] [address] Ultrasound Report Signed Patient: JOHANNA VELASQUEZMR#: [id number] : 1990Acct:[id number] Age/Sex: 33 / FADM Date: 12/10/23 Loc: US Attending Dr: Lia Tejada D.O. Ordering Physician: Lia Tejada D.O. Date of Service: 12/10/23 Procedure(s): US OB transvaginal Accession Number(s): [id number] cc: Lia Tejada D.O.; Physician,Non-Staff Estee The [place] [id number] Patient Name: JOHANNA VELASQUEZ MRN: [id number] date: 1990 Sex: F Assigned Patient Location: US Current Patient Location: US Accession/Order Number: [id number] Exam Date: 12/10/2023 12:17 Report Date: 12/10/2023 13:24 At the request of: LIA TEJADA Procedure: US OB transvaginal EXAMINATION: US OB transvaginal HISTORY: MISSED MENSES COMPARISON: No relevant comparison available. FINDINGS: Martínez intrauterine gestation Gestational sac: 4.2 cm, 9 weeks 4 days CRL: 4.67 cm, 11 weeks 2 days Yolk sac: 6.6 mm Heart rate: 153 beats minute Cervix: Closed, 4.8 cm The uterus is normal, anteverted, anteflexed The ovaries are normal Clinical age: 10 weeks 6 days Clinical FRANCISCO: 07/01/2024 Ultrasound age: 11 weeks 3 days Ultrasound FRANCISCO: 06/27/2024 US/US OB transvaginal IMPRESSION: Viable martínez intrauterine gestation measuring 11 weeks 3 days Electronically authenticated by: SHAY BEY Date: 12/10/2023 13:24 Dictated By: Shay Bey M.D. Signed By:12/10/237 DD/ 23 TD/TT: Guest Relations Representative: us Lia Tejada DO [facility] Final Result documented in this encounter Visit Diagnoses Not on filedocumented in this encounter
--- OUTSIDE RECORDS SUMMARY | 2025-04-20 09:07 | XMS_ITS | Clinical Summary ---
Author Organization [facility] Address [id number] [address] [place] [address] Care Team Providers Care Diesel Engine Erector Name Role Phone MalloryArvind bearden Primary Care Provider [phone] Allergies No known active allergies Medications ibuprofen (MOTRIN) 800 mg tablet Take 1 tablet (800 mg total) by mouth every 6 (six) hours as needed for pain. Active ferrous sulfate 325 (65 FE) mg tablet Take 1 tablet (325 mg total) by mouth daily with breakfast. Active Social History Tobacco Use Types Packs/Day Years Used Date Smoking Tobacco: Every Day Cigarettes Smokeless Tobacco: Never Tobacco Cessation:Ready to Q uit: Not Asked; Counseling Given: Not Answered Alcohol Use Standard Drinks/Week Comments Not Currently 0 (1 standard drink = 0.6 oz pur e alcohol) Hunger Screening Answer Date Recorded Within the past 12 months we worried whether our food would run out before we got money to buy more. Never True 07/05/2024 Within the past 12 months th e food we bought just didn't last and we didn't have money to get more. Never True 07/05/2024 Comments No Sex and Gender Information Value Date Recorded Sex Assigned at Not on file Legal Sex Female 12:27 PM EDT Gender Identity Not on file Sexual Orientation Not on file Last Filed Vital Signs Vital Sign Reading Time Taken Comments Blood Pressure 138/81 07/05/2024 8:59 PM EDT Pulse 58 07/05/2024 8:59 PM EDT Temperature 36.7 C (98.1 F) 07/05/2024 8:45 PM EDT Respiratory Rate 17 07/05/2024 8:59 PM EDT Oxygen Saturation 98% 07/05/2024 8:59 PM EDT Inhaled Oxygen Concentration - - Weight 131.5 kg (290 lb) 07/05/2024 8:45 PM EDT Height 167.6 cm (5' 6 ) 07/05/2024 8:45 PM EDT Body Mass Index 46.81 07/05/2024 8:45 PM EDT Plan of Treatment Health Maintenance Due Date Last Done Comments Tobacco Counseling 1990 Depression Screening 2004 Adult BMI Follow Up Plan 02/21/2010 DTaP,Tdap and Td Vaccines (1 - Tdap) 02/21/2011 Pap Smear 02/21/2013 Adult BMI Screening 07/05/2025 07/05/2024 Tobacco Screening 07/05/2025 07/05/2024 Influenza Vaccine 07/31/2025 Medical Devices Not on file Insurance [employer] Care Teams Diesel Engine Erector Relationship Specialty Start Date End Date Arvind Tejada DO PCP - General Obstetrics & Gynecology 07/05/24
--- OUTSIDE RECORDS SUMMARY | 2025-04-20 09:07 | XMS_ITS | Encounter Summary ---
Author Organization [facility] Address [address] [place] [address] Care Team Providers Care Fitness Worker Name Role Phone Unavailable Primary Care Provider Unavailabl e Encounter Details Date Type Department Care Team (Late st Contact Info) Description 06/17/2024 Clinisync Result Encounter [facility] External Department Unsolicited Lia Tejada, DO [facility] [place] [address] Social History Tobacco Use Types Packs/Day Years [...] EDT Office Visit [facility] OB [address] [place] [address] Lia Tejada [address] [place] [address] documented as of this encounter Procedures Procedure Name Priority Date/Time Associated Diagnosis Comments US OB BPP W NON-STRESS 06/17/2024 10:32 AM EDT documented in this encounter Results * US OB BPP W NON-STRESS (06/17/2024 10:32 AM EDT) Anatomical Region Laterality Modality Other 06/17/2024 10:3 2 AM EDT Narrative 06/17/2024 10:35 [place] [address] Ultrasound Report Signed Patient: JOHANNA VELASQUEZ MR#: [id number] : 1990 Acct:[id number] Age/Sex: 34 / F ADM Date: 06/17/24 Loc: [facility] 250-[address]: Lia Tejada D.O. Ordering Physician: Lia Tejada D.O. Date of Service: 06/17/24 Procedure(s): US OB BPP w non-stress Accession Number(s): [id number] cc: Lia Tejada D.O.; Physician,Non-Staff Estee [place] [address] Patient Name: JOHANNA VELASQUEZ MRN: [id number] date: 1990 Sex: F Assigned Patient Location: [facility] Current Patient Location: [facility] Accession/Order Number: [id number] Exam Date: 06/17/2024 09:42 Report Date: 06/17/2024 10:32 At the request of: LIA TEJADA Procedure: US OB BPP w non-stress EXAMINATION: US OB BPP w non-stress HISTORY:Third trimester Z34.93 COMPARISON: Ultrasound OB biophysical 06/10/2024 TECHNIQUE: Ultrasound biophysical profile was performed in the radiology department. BREATHING MOVEMENTS: 2 GROSS BODY MOVEMENTS: 2 TONE: 2 QUALITATIVE AMNIOTIC FLUID VOLUME: 2 PRESENTATION: CEPHALIC HEART RATE: 133.66 bpm AMNIOTIC FLUID VOLUME: 19.62 cm GESTATIONAL AGE: 38 weeks 0 days US/US OB BPP w non-stress IMPRESSION: Total biophysical profile score: 8 Electronically authenticated by: PA QUINN Date: 06/17/2024 10:32 Dictated By: Pa Quinn M.D. Signed By: 06/17/24 1035 DD/ 1032 TD/TT: Lead Welder: Procedure Note Radiology, Radiologist, MD - 06/17/2024 [place] [address] Ultrasound Report Signed Patient: JOHANNA VELASQUEZMR#: [id number] : 1990Acct:[id number] Age/Sex: 34 / FADM Date: 06/17/24 Loc: [facility] 250-[address]: Lia Tejada D.O. Ordering Physician: Lia Tejada D.O. Date of Service: 06/17/24 Procedure(s): US OB BPP w non-stress Accession Number(s): [id number] cc: Lia Tejada D.O.; Physician,Non-Staff Estee The [address] [address] Patient Name: JOHANNA VELASQUEZ MRN: [facility]:[id number] date: 1990 Sex: F Assigned Patient Location: [facility] Current Patient Location: [facility] Accession/Order Number: [id number] Exam Date: 06/17/2024 09:42 Report Date: 06/17/2024 10:32 At the request of: LIA TEJADA Procedure: US OB BPP w non-stress EXAMINATION: US OB BPP w non-stress HISTORY:Third trimester Z34.93 COMPARISON: Ultrasound OB biophysical 06/10/2024 TECHNIQUE: Ultrasound biophysical profile was performed in the radiology department. BREATHING MOVEMENTS: 2 GROSS BODY MOVEMENTS: 2 TONE: 2 QUALITATIVE AMNIOTIC FLUID VOLUME: 2 PRESENTATION: CEPHALIC HEART RATE: 133.66 bpm AMNIOTIC FLUID VOLUME: 19.62 cm GESTATIONAL AGE: 38 weeks 0 days US/US OB BPP w non-stress IMPRESSION: Total biophysical profile score: 8 Electronically authenticated by: PA QUINN Date: 06/17/2024 10:32 Dictated By: Pa Quinn M.D. Signed By:06/17/24 1035 DD/ 31 TD/TT: Lead Welder: us Lia Mallroy DO [facility] Final Result documented in this encounter Visit Diagnoses Not on filedocumented in this encounter
--- OUTSIDE RECORDS SUMMARY | 2025-04-20 09:07 | XMS_ITS | Encounter Summary ---
Author Organization [facility] Address [address] [place] [address] Care Team Providers Care Field Agent Name Role Phone Unavailable Primary Care Provider Unavailabl e Encounter Details Date Type Department Care Team (Late st Contact Info) Description 06/06/2024 Clinisync Result Encounter [facility] External Department Unsolicited Lia Tejada, [facility] [address] Social History Tobacco Use Types Packs/Day Years [...] EDT Office Visit [facility] OB [address] [place] [phone] Lia Tejada DO [facility] [place] [address] documented as of this encounter Procedures Procedure Name Priority Date/Time Associated Diagnosis Comments US OB BPP W NON-STRESS 06/06/2024 6:30 AM EDT documented in this encounter Results * US OB BPP W NON-STRESS (06/06/2024 6:30 AM EDT) Anatomical Region Laterality Modality Other 06/06/2024 6:30 AM EDT Narrative 06/06/2024 6:33 AM EDT [place] [id number] Ultrasound Report Signed Patient: JOHANNA VELASQUEZ MR#: [id number] : 1990 Acct:[id number] Age/Sex: 34 / F ADM Date: 06/04/24 Loc: US Attending Dr: Lia Tejada D.O. Ordering Physician: Lia Tejada D.O. Date of Service: 06/04/24 Procedure(s): US OB BPP w non-stress Accession Number(s): [id number] cc: Lia Tejada D.O.; Physician,Non-Staff Estee [place] [id number] Patient Name: JOHANNA VELASQUEZ MRN: [id number] date: 1990 Sex: F Assigned Patient Location: US Current Patient Location: Accession/Order Number: [id number] Exam Date: 06/04/2024 09:00 Report Date: 06/06/2024 06:30 At the request of: LIA TEJADA Procedure: US OB BPP w non-stress EXAMINATION: US OB BPP w non-stress HISTORY: Third trimester COMPARISON: No relevant comparison available. TECHNIQUE: Ultrasound biophysical profile was performed in the radiology department. FINDINGS: BREATHING MOVEMENTS: 2 GROSS BODY MOVEMENTS: 2 TONE: 2 QUALITATIVE AMNIOTIC FLUID VOLUME: 2 PRESENTATION: CEPHALIC HEART RATE: 146.74 bpm AMNIOTIC FLUID VOLUME: 23.6 cm GESTATIONAL AGE: 36 weeks 1 day US/US OB BPP w non-stress IMPRESSION: Total biophysical profile score: 8 Electronically authenticated by: SHAY BEY Date: 06/06/2024 06:30 Dictated By: Shay Bey M.D. Signed By: 06/06/24632 DD/ 9 TD/TT: Director Foundation: Procedure Note Radiology, Radiologist, MD - 06/06/2024 The [place] [id number] Ultrasound Report Signed Patient: JOHANNA VELASQUEZMR#: [id number] : 1990Acct:[id number] Age/Sex: 34 / FADM Date: 06/04/24 Loc: US Attending Dr: Lia Tejada D.O. Ordering Physician: Lia Tejada D.O. Date of Service: 06/04/24 Procedure(s): US OB BPP w non-stress Accession Number(s): [id number] cc: Lia Tejada D.O.; Physician,Non-Staff Estee The [place] [id number] Patient Name: JOHANNA VELASQUEZ MRN: [id number] date: 1990 Sex: F Assigned Patient Location: US Current Patient Location: Accession/Order Number: [id number] Exam Date: 06/04/2024 09:00 Report Date: 06/06/2024 06:30 At the request of: LIA TEJADA Procedure: US OB BPP w non-stress EXAMINATION: US OB BPP w non-stress HISTORY: Third trimester COMPARISON: No relevant comparison available. TECHNIQUE: Ultrasound biophysical profile was performed in the radiology department. FINDINGS: BREATHING MOVEMENTS: 2 GROSS BODY MOVEMENTS: 2 TONE: 2 QUALITATIVE AMNIOTIC FLUID VOLUME: 2 PRESENTATION: CEPHALIC HEART RATE: 146.74 bpm AMNIOTIC FLUID VOLUME: 23.6 cm GESTATIONAL AGE: 36 weeks 1 day US/US OB BPP w non-stress IMPRESSION: Total biophysical profile score: 8 Electronically authenticated by: SHAY BEY Date: 06/06/2024 06:30 Dictated By: Shay Bey M.D. Signed By:06/06/2433 DD/ 9 TD/TT: Director Foundation: us Lia Tejada DO [facility] Final Result documented in this encounter Visit Diagnoses Not on filedocumented in this encounter
--- OUTSIDE RECORDS SUMMARY | 2025-04-20 09:07 | XMS_ITS | Encounter Summary ---
Author Organization [facility] Address [address] [place] [address] Care Team Providers Care Client Server Programmer Name Role Phone Unavailable Primary Care Provider Unavailabl e Encounter Details Date Type Department Care Team (Late st Contact Info) Description 02/24/2024 Clinisync Result Encounter [facility] External Department Unsolicited Lia Tejada, DO [facility] [address] Social History Tobacco Use Types Packs/Day Years [...] 04/27/2025 10:30 AM EDT Office Visit [facility] OB [address] [place] [address] Lia Tejada DO [address] [place] [address] documented as of this encounter Procedures Procedure Name Priority Date/Time Associated Diagnosis Comments US OB ANATOMY 02/24/2024 3:02 PM EDT documented in this encounter Results * US OB ANATOMY (02/24/2024 3:02 PM EDT) Anatomical Region Laterality Modality Other 02/24/2024 3:02 PM EDT Narrative 02/24/2024 3:05 PM EDT [address] [address] Ultrasound Report Signed Patient: JOHANNA VELASQUEZ MR#: [id number] : 1990 Acct:[id number] Age/Sex: 34 / F ADM Date: 02/24/24 Loc: [facility] Attending Dr: Lia Tejada D.O. Ordering Physician: Lia Tejada D.O. Date of Service: 02/24/24 Procedure(s): US OB anatomy Accession Number(s): [id number] cc: Lia Tejada D.O.; Physician,Non-Staff Estee [address] [address] Patient Name: JOHANNA VELASQUEZ MRN: [facility]:[id number] date: 1990 Sex: F Assigned Patient Location: [facility] Current Patient Location: [facility] Accession/Order Number: [id number] Exam Date: 02/24/2024 13:41 Report Date: 02/24/2024 15:02 At the request of: LIA TEJADA Procedure: US OB anatomy EXAMINATION: US OB anatomy, US OB cervical [...] FRANCISCO by current US: 06/28/2024 US/US OB anatomy IMPRESSION: 1. Single live intrauterine with growth detailed above. Electronically authenticated by: PA QUINN Date: 02/24/2024 15:02 Dictated By: Pa Quinn M.D. Signed By: 02/24/24 1505 DD/ 1502 TD/TT: Pulp Screen Operator: Procedure Note Radiology, Radiologist, MD - 02/24/2024 [place] [address] Ultrasound Report Signed Patient: JOHANNA VELASQUEZMR#: [id number] : 1990Acct:[id number] Age/Sex: 34 / FADM Date: 02/24/24 Loc: [facility] Attending Dr: Lia Tejada D.O. Ordering Physician: Lia Tejada D.O. Date of Service: 02/24/24 Procedure(s): US OB anatomy Accession Number(s): [id number] cc: Lia Tejada D.O.; Physician,Non-Staff Estee The [place] [address] Patient Name: JOHANNA VELASQUEZ MRN: [id number]:[id number] date: 1990 Sex: F Assigned Patient Location: [facility] Current Patient Location: [facility] Accession/Order Number: [id number] Exam Date: 02/24/2024 13:41 Report Date: 02/24/2024 15:02 At the request of: LIA TEJADA Procedure: US OB anatomy EXAMINATION: US OB anatomy, US OB cervical [...] FRANCISCO by current US: 06/28/2024 US/US OB anatomy IMPRESSION: 1. Single live intrauterine with growth detailed above. Electronically authenticated by: PA QUINN Date: 02/24/2024 15:02 Dictated By: Pa Quinn M.D. Signed By:02/24/24 1505 DD/ 1502 TD/TT: Pulp Screen Operator: us Lia Mallory DO [facility] Final Result documented in this encounter Visit Diagnoses Not on filedocumented in this encounter
--- OUTSIDE RECORDS SUMMARY | 2025-04-20 09:07 | XMS_ITS | Encounter Summary ---
Author Organization [facility] Address [address] [place] [address] Care Team Providers Care Metal Caster Name Role Phone Unavailable Primary Care Provider Unavailabl e Encounter Details Date Type Department Care Team (Late st Contact Info) Description 04/07/2024 Abstract [facility] OB [address] [place] [address] Arvind Tejada, [address] Pat Hino[place], [facility]11 Social History Tobacco Use Types Packs/Day [...] EDT Office Visit [facility] OB [facility] [place] [address] Arvind Tejada DO [facility] [place], [place] [address] documented as of this encounter Visit Diagnoses Not on filedocumented in this encounter
--- OUTSIDE RECORDS SUMMARY | 2025-04-20 09:07 | XMS_ITS | Encounter Summary ---
Author Organization [facility] Address [address] [place] [address] Care Team Providers Care Booking Officer Name Role Phone Unavailable Primary Care Provider Unavailabl e Encounter Details Date Type Department Care Team (Late st Contact Info) Description 06/24/2024 Abstract [facility] BCP OB [address] [facility] [place] [address] Candi Ozuna LPN [address] [place] [id number] Social History Tobacco Use Types Packs/Day Years [...] EDT Office Visit [facility] BCP OB [address] [facility] [place] [address] Arvind Tejada DO [address] [place] [address] [place] [address] documented as of this encounter Visit Diagnoses Not on filedocumented in this encounter
--- OUTSIDE RECORDS SUMMARY | 2025-04-20 09:07 | XMS_ITS | Encounter Summary ---
Author Organization [facility] Address [address] [place] [address] Care Team Providers Care Cook Chef Name Role Phone Unavailable Primary Care Provider Unavailabl e Encounter Details Date Type Department Care Team (Late st Contact Info) Description 05/27/2024 Clinisync Result Encounter N[facility] External Department Unsolicited Lia Tejada, DO [facility] [place] [address] Social History Tobacco Use Types Packs/Day Years [...] EDT Office Visit [facility] BCP OB [address] [place] [address] Lia Tejada [facility] [place] [address] documented as of this encounter Procedures Procedure Name Priority Date/Time Associated Diagnosis Comments US OB BPP W NON-STRESS 05/27/2024 2:56 PM EDT documented in this encounter Results * US OB BPP W NON-STRESS (05/27/2024 2:56 PM EDT) Anatomical Region Laterality Modality Other 05/27/2024 2:56 PM EDT Narrative 05/27/2024 2:58 PM EDT [place] [id number] Ultrasound Report Signed Patient: JOHANNA VELASQUEZ MR#: [id number] : 1990 Acct:[id number] Age/Sex: 34 / F ADM Date: 05/27/24 Loc: [facility] 250B-B Attending Dr: Lia Tejada D.O. Ordering Physician: Lia Tejada D.O. Date of Service: 05/27/24 Procedure(s): US OB BPP w non-stress Accession Number(s): [id number] cc: Lia Tejada D.O.; Physician,Non-Staff [place] [address] Patient Name: JOHANNA VELASQUEZ MRN: [id number] date: 1990 Sex: F Assigned Patient Location: US Current Patient Location: US Accession/Order Number: [id number] Exam Date: 05/27/2024 14:15 Report Date: 05/27/2024 14:56 At the request of: LIA TEJADA Procedure: US OB BPP w non-stress EXAMINATION: US OB BPP w non-stress HISTORY: Third trimester Z34.93 COMPARISON: No relevant comparison available. TECHNIQUE: Ultrasound biophysical profile was performed in the radiology department. FINDINGS: BREATHING MOVEMENTS: 2 GROSS BODY MOVEMENTS: 2 TONE: 2 QUALITATIVE AMNIOTIC FLUID VOLUME: 2 PRESENTATION: CEPHALIC HEART RATE: 145.95 bpm AMNIOTIC FLUID VOLUME: 16.9 cm GESTATIONAL AGE: 35 weeks 0 days US/US OB BPP w non-stress IMPRESSION: Total biophysical profile score: 8 Electronically authenticated by: SHAY BEY Date: 05/27/2024 14:56 Dictated By: Shay Bey M.D. Signed By: 05/27/24 1458 DD/ 1456 TD/TT: Technical Operations Specialist: Procedure Note Radiology, Radiologist, - 05/27/2024 [place] [address] Ultrasound Report Signed Patient: JOHANNA VELASQUEZMR#: [id number] : 1990Acct:[id number] Age/Sex: 34 / FADM Date: 05/27/24 Loc: [facility] 250B-B Attending Dr: Lia Tejada D.O. Ordering Physician: Lia Tejada D.O. Date of Service: 05/27/24 Procedure(s): US OB BPP w non-stress Accession Number(s): [id number] cc: Lia Tejada D.O.; Physician,Non-Staff Estee The [place] [id number] Patient Name: JOHANNA VELASQUEZ MRN: [id number] date: 1990 Sex: F Assigned Patient Location: US Current Patient Location: US Accession/Order Number: [id number] Exam Date: 05/27/2024 14:15 Report Date: 05/27/2024 14:56 At the request of: LIA TEJADA Procedure: US OB BPP w non-stress EXAMINATION: US OB BPP w non-stress HISTORY: Third trimester Z34.93 COMPARISON: No relevant comparison available. TECHNIQUE: Ultrasound biophysical profile was performed in the radiology department. FINDINGS: BREATHING MOVEMENTS: 2 GROSS BODY MOVEMENTS: 2 TONE: 2 QUALITATIVE AMNIOTIC FLUID VOLUME: 2 PRESENTATION: CEPHALIC HEART RATE: 145.95 bpm AMNIOTIC FLUID VOLUME: 16.9 cm GESTATIONAL AGE: 35 weeks 0 days US/US OB BPP w non-stress IMPRESSION: Total biophysical profile score: 8 Electronically authenticated by: SHYA BEY Date: 05/27/2024 14:56 Dictated By: Shay Bey M.D. Signed By:05/27/24 1458 DD/ 1456 TD/TT: Technical Operations Specialist: us Lia Tejada DO [facility] Final Result documented in this encounter Visit Diagnoses Not on filedocumented in this encounter
--- OUTSIDE RECORDS SUMMARY | 2025-04-20 09:07 | XMS_ITS | Encounter Summary ---
Author Organization [facility] Address [address] [place] [address] Care Team Providers Care Product Support Engineer Name Role Phone Unavailable Primary Care Provider Unavailabl e Encounter Details Date Type Department Care Team (Late st Contact Info) Description 06/23/2024 Abstract [facility] OB [address] [place] [address] Arvind Tejada, [address] Pat Hinojosa, [facility]11 Social History Tobacco Use Types Packs/Day [...] EDT Office Visit [facility] BCP OB [address] [facility] [place] [address] Arvind Tejada DO [facility] [place], [place] [id number] documented as of this encounter Visit Diagnoses Not on filedocumented in this encounter
--- OUTSIDE RECORDS SUMMARY | 2025-04-20 09:07 | XMS_ITS | Encounter Summary ---
Author Organization [facility] Address [address] [place] [address] Care Team Providers Care Center Director Lead Teacher Name Role Phone Unavailable Primary Care Provider Unavailabl e Encounter Details Date Type Department Care Team (Late st Contact Info) Description 06/22/2024 Abstract [facility] OB [address] [place] [address] Arvind Tejada, [address] Pat Hinojosa, [facility]11 Social History Tobacco Use Types Packs/Day Years [...] EDT Office Visit [facility] BCP OB [address] [facility] [address] Arvind Tejada DO [facility] [place], [place] [phone] documented as of this encounter Visit Diagnoses Not on filedocumented in this encounter
--- OUTSIDE RECORDS SUMMARY | 2025-04-20 09:07 | XMS_ITS | Encounter Summary ---
Author Organization [facility] Address [address] [place] [address] Care Team Providers Care Micro Computer Data Processor Name Role Phone Unavailable Primary Care Provider Unavailabl e Encounter Details Date Type Department Care Team (Late st Contact Info) Description 06/10/2024 Clinisync Result Encounter N[facility] External Department Unsolicited Lia Tejada, [facility] [place] [address] Social History Tobacco Use Types Packs/Day Years [...] EDT Office Visit [facility] BCP OB [address] [place] [address] Lia Tejada [facility] [place] [address] documented as of this encounter Procedures Procedure Name Priority Date/Time Associated Diagnosis Comments US OB BPP W NON-STRESS 06/10/2024 9:32 AM EDT documented in this encounter Results * US OB BPP W NON-STRESS (06/10/2024 9:32 AM EDT) Anatomical Region Laterality Modality Other 06/10/2024 9:32 AM EDT Narrative 06/10/2024 9:35 AM EDT [address] [address] Ultrasound Report Signed Patient: JOHANNA VELASQUEZ MR#: [id number] : 1990 Acct:[id number] Age/Sex: 34 / F ADM Date: 06/10/24 Loc: [facility] 250-[address]: Lia Tejada D.O. Ordering Physician: Lia Tejada D.O. Date of Service: 06/10/24 Procedure(s): US OB BPP w non-stress Accession Number(s): [id number] cc: Lia Tejada D.O.; Physician,Non-Staff [place] [id number] Patient Name: JOHANNA VELASQUEZ MRN: [id number] date: 1990 Sex: F Assigned Patient Location: [facility] Current Patient Location: [facility] Accession/Order Number: [id number] Exam Date: 06/10/2024 08:50 Report Date: 06/10/2024 09:32 At the request of: LIA TEJADA Procedure: US OB BPP w non-stress EXAMINATION: US OB BPP w non-stress HISTORY: Third trimester Z34.93 COMPARISON: No relevant comparison available. TECHNIQUE: Ultrasound biophysical profile was performed in the radiology department. non-reactive stress testing was performed by nursing staff in the birthing center. FINDINGS: BREATHING MOVEMENTS: 2 GROSS BODY MOVEMENTS: 2 TONE: 2 QUALITATIVE AMNIOTIC FLUID VOLUME: 2 PRESENTATION: CEPHALIC HEART RATE: 136.36 bpm AMNIOTIC FLUID VOLUME: 26.9 GESTATIONAL AGE: 37 weeks 0 days US/US OB BPP w non-stress IMPRESSION: Total biophysical profile score: 8 Electronically authenticated by: SHAY BEY Date: 06/10/2024 09:32 Dictated By: Shay Bey M.D. Signed By: 06/10/24 0935 DD/ 1 TD/TT: Datastage Architect: Procedure Note Radiology, Radiologist, - 06/10/2024 [place] [address] Ultrasound Report Signed Patient: JOHANNA VELASQUEZMR#: [id number] : 1990Acct:[id number] Age/Sex: 34 / FADM Date: 06/10/24 Loc: [facility] 250-[address]: Lia Tejada D.O. Ordering Physician: Lia Tejada D.O. Date of Service: 06/10/24 Procedure(s): US OB BPP w non-stress Accession Number(s): [id number] cc: Lia Tejada D.O.; Physician,Non-Staff Estee The [place] [id number] Patient Name: JOHANNA VELASQUEZ MRN: [id number] date: 1990 Sex: F Assigned Patient Location: [facility] Current Patient Location: [facility] Accession/Order Number: [id number] Exam Date: 06/10/2024 08:50 Report Date: 06/10/2024 09:32 At the request of: LIA TEJADA Procedure: US OB BPP w non-stress EXAMINATION: US OB BPP w non-stress HISTORY: Third trimester Z34.93 COMPARISON: No relevant comparison available. TECHNIQUE: Ultrasound biophysical profile was performed in the radiology department. non-reactive stress testing was performed by nursingstaff in the birthing center. FINDINGS: BREATHING MOVEMENTS: 2 GROSS BODY MOVEMENTS: 2 TONE: 2 QUALITATIVE AMNIOTIC FLUID VOLUME: 2 PRESENTATION: CEPHALIC HEART RATE: 136.36 bpm AMNIOTIC FLUID VOLUME: 26.9 GESTATIONAL AGE: 37 weeks 0 days US/US OB BPP w non-stress IMPRESSION: Total biophysical profile score: 8 Electronically authenticated by: SHAY BEY Date: 06/10/2024 09:32 Dictated By: Shay Bey M.D. Signed By:06/10/2435 DD/ 0932 TD/TT: Datastage Architect: us Lia Starro DO [facility] Final Result documented in this encounter Visit Diagnoses Not on filedocumented in this encounter
--- OUTSIDE RECORDS SUMMARY | 2025-04-20 09:07 | XMS_ITS | Encounter Summary ---
Author Organization [facility] Address [address] [place] [address] Care Team Providers Care Lineman Name Role Phone Unavailable Primary Care Provider Unavailabl e Encounter Details Date Type Department Care Team (Late st Contact Info) Description 06/21/2024 Abstract [facility] OB [address] [place] [address] Arvind Tejada, [address] Pat [place]ino[place]osa, [facility]11 Social History Tobacco Use Types Packs/Day [...] EDT Office Visit [facility] BCP OB 102 [facility] [place] [address] Arvind Tjeada DO [facility] [place], [place] [id number] documented as of this encounter Visit Diagnoses Not on filedocumented in this encounter
--- OUTSIDE RECORDS SUMMARY | 2025-04-20 09:07 | XMS_ITS | Encounter Summary ---
Author Organization [facility] Address [address] [place] [address] Care Team Providers Care Obstetric Assistant Name Role Phone Unavailable Primary Care Provider Unavailabl e Encounter Details Date Type Department Care Team (Late st Contact Info) Description 06/07/2024 Abstract [facility] OB [address] [place] [address] Arvind Tejada, [address] Pat Hinojosa, [facility]11 Social History Tobacco Use Types Packs/Day [...] EDT Office Visit [facility] BCP OB 102 [facility] [place] [address] Arvind Tejada DO [facility] [place], [place] [address] documented as of this encounter Visit Diagnoses Not on filedocumented in this encounter
--- OUTSIDE RECORDS SUMMARY | 2025-04-20 09:08 | XMS_ITS | Encounter Summary ---
Author Organization [facility] Address [address] [place] [address] Care Team Providers Care Lending Manager Name Role Phone Unavailable Primary Care Provider Unavailabl e Encounter Details Date Type Department Care Team (Late st Contact Info) Description 05/19/2024 Clinisync Result Encounter NOMS External Department Unsolicited Yessica Vela PA [address] [facility] [address] [place], [facility]11 Social History Tobacco Use Types Packs/Day [...] EDT Office Visit [facility] BCP OB [address] [facility] [place] [phone] Arvind Tejada DO [address] [facility] [place] [address] documented as of this encounter Procedures Procedure Name Priority Date/Time Associated Diagnosis Comments US OB GROWTH 05/19/2024 1:44 PM EDT documented in this encounter Results * US OB GROWTH (05/19/2024 1:44 PM EDT) Anatomical Region Laterality Modality Other 05/19/2024 1:44 PM EDT Narrative 05/19/2024 1:47 PM EDT [address] [address] Ultrasound Report Signed Patient: JOHANNA VELASQUEZ MR#: [id number] : 1990 Acct:[id number] Age/Sex: 34 / F ADM Date: 05/19/24 Loc: [facility] Attending Dr: Yessica Vela Ordering Physician: Yessica Vela Date of Service: 05/19/24 Procedure(s): US OB growth Accession Number(s): [id number] cc: Yessica Vela; Physician,Non-Staff M.DCarlos [address] [address] Patient Name: JOHANNA VELASQUEZ MRN: [id number] date: 1990 Sex: F Assigned Patient Location: [facility] Current Patient Location: [facility] Accession/Order Number: [id number] Exam Date: 05/19/2024 08:29 Report Date: 05/19/2024 13:44 At the request of: YESSICA VELA Procedure: US OB growth EXAMINATION: US OB growth HISTORY: SIZE INCONSISTENT WITH DATES COMPARISON: Ultrasound OB anatomy 02/24/2024 FINDINGS: Heart Rate: 133 bpm Amniotic Fluid Volume: 23.0 cm Number: 1 Position: Cephalic BIOMETRY: BPD: 8.2 cm; 33.0; 22% HC: 31.3 cm; 35 weeks 1 day; 46% AC: 29.7 cm; 33 weeks 5 days; 48% FL: 6.6 cm; 34 weeks 0 days; 42% EFW: 2287; 42% FL/AC: 22.19 FL/BPD: 80.37 HC/AC: 1.06 GESTATIONAL AGE: Age by EDC: 33 weeks 6 days FRANCISCO by EDC: 07/01/2024 Age by US: 34 weeks 0 days FRANCISCO by US: 06/30/2024 US/US OB growth IMPRESSION: 1. Single live intrauterine with growth detailed above. Electronically authenticated by: PA QUINN Date: 05/19/2024 13:44 Dictated By: Pa Quinn M.D. Signed By: 05/19/24 1347 DD/ 43 TD/TT: Tennis Centre Manager: Procedure Note Radiology, Radiologist, - 05/19/2024 [place] [address] Ultrasound Report Signed Patient: JOHANNA VELASQUEZMR#: [id number] : 1990Acct:[id number] Age/Sex: 34 / FADM Date: 05/19/24 Loc: [facility] Attending Dr: Yessica Vela Ordering Physician: Yessica Vela Date of Service: 05/19/24 Procedure(s): US OB growth Accession Number(s): [id number] cc: Yessica Vela; Physician,Non-Staff Estee The [place] [address] Patient Name: JOHANNA VELASQUEZ MRN: [facility]:[id number] date: 1990 Sex: F Assigned Patient Location: [facility] Current Patient Location: [facility] Accession/Order Number: [id number] Exam Date: 05/19/2024 08:29 Report Date: 05/19/2024 13:44 At the request of: YESSICA VELA Procedure: US OB growth EXAMINATION: US OB growth HISTORY: SIZE INCONSISTENT WITH DATES COMPARISON: Ultrasound OB anatomy 02/24/2024 FINDINGS: Heart Rate: 133 bpm Amniotic Fluid Volume: 23.0 cm Number: 1 Position: Cephalic BIOMETRY: BPD: 8.2 cm; 33.0; 22% HC: 31.3 cm; 35 weeks 1 day; 46% AC: 29.7 cm; 33 weeks 5 days; 48% FL: 6.6 cm; 34 weeks 0 days; 42% EFW: 2287; 42% FL/AC: 22.19 FL/BPD: 80.37 HC/AC: 1.06 GESTATIONAL AGE: Age by EDC: 33 weeks 6 days FRANCISCO by EDC: 07/01/2024 Age by US: 34 weeks 0 days FRANCISCO by US: 06/30/2024 US/US OB growth IMPRESSION: 1. Single live intrauterine with growth detailed above. Electronically authenticated by: PA QUINN Date: 05/19/2024 13:44 Dictated By: Pa Quinn M.D. Signed By:05/19/24 1347 DD/ 1344 TD/TT: Tennis Centre Manager: us Yessica SLOAN [facility] Final Result documented in this encounter Visit Diagnoses Not on filedocumented in this encounter
--- OUTSIDE RECORDS SUMMARY | 2025-04-20 09:08 | XMS_ITS | Clinical Summary ---
Author Organization [facility] Address [address] [place] [address] Care Team Providers Care Sternman Name Role Phone Unavailable Primary Care Provider Unavailabl e Allergies No known active allergies Medications phentermine (Adipex-P) 37.5 MG tabletIndicati ons:Encounter for weight management Take 1 tablet (37.5 mg) by mouth in the morning. Take before meals. 30 tablet 5 04/29/20 25 Active metFORMIN XR (Glucophage-XR ) 500 MG 24 hr tabletIndicati ons:Encounter for weight management Take 2 tablets (1,000 mg) by mouth in the evening. Take with meals Do not crush, chew, or split. 30 tablet 11 5 04/29/20 25 Active metFORMIN XR (Glucophage-XR ) 500 MG 24 hr tabletIndicati ons:Encounter for weight management Take 1 tablet (500 mg) by mouth in the evening. Take with meals Do not crush, chew, or split. 30 tablet 11 5 03/30/20 25 Discontinued Hospital, Clinic, or Other Facility Administered Medication Ordered Dose Route Frequency Start Date End Date Status Levonorgestrel intrauterine device 52 mgIndications:Encounter for IUD insertion 52 mg IU Continuous 08/16/2024 08/15/2029 Active Encounters Date Type Department Care Team Description 04/11/[address] [facility] [address] [place] [address] Shari Bertrand LPN 04/03/[address] [facility] [address] [place] [address] Natanaelkrysdanni LatanyaMELI 03/30/2025 11:30 AM EDT Office Visit [facility] [address] [place] [address] Arvind Tejada DO Encounter for weight management; Abnormal uterine bleeding (AUB); Sterilization consult 03/30/2025 11:00 AM EDT Ancillary Procedure [facility] [address] [place] [address] Intrauterine device surveillance; Abnormal uterine bleeding (AUB) 03/02/2025 11:50 AM EDT Office Visit [facility] [address] [place] [address] Arvind Tejada DO Intrauterine device surveillance; Abnormal uterine bleeding (AUB); Encounter for weight management; Hidradenitis suppurativa 03/02/2025 Bamboo flowsheet [facility] [address] [place] [address] Arvind Tejada DO from Last 3 Months Social History Tobacco Use Types Packs/Day Years Used Date Smoking Tobacco: Never Assessed Comments No Sex and Gender Information Value Date Recorded Sex Assigned at Female 12/03/2023 12:44 PM EST Legal Sex Female 11:35 AM EST Gender Identity Female 12/03/2023 12:44 PM EST Sexual Orientation Straight 12/03/2023 12 :44 PM EST Last Filed Vital Signs Vital Sign Reading Time Taken Comments Blood Pressure 120/80 03/30/2025 11:46 AM EDT Pulse - - Temperature - - Respiratory Rate - - Oxygen Saturation - - Inhaled Oxygen Concentration - - Weight 123 kg (271 lb 12.8 oz) 03/30/2025 11:46 AM EDT Height 167.6 cm (5' 6 ) 07/06/2024 2:32 PM EDT Body Mass Index 43.87 07/06/2024 2:32 PM EDT Plan of Treatment Upcoming Encounters Date Type Department Care Team (Late st Contact Info) Description 04/27/2025 10:30 AM EDT Office Visit [facility] [address] [place] [address] Arvind Tejada [address] [place] [address] Procedures Procedure Name Priority Date/Time Associated Diagnosis Comments POCT , URINE Routine 03/30/2025 11:52 AM EDT Encounter for weight management POCT URINALYSIS DIPSTICK Routine 03/30/2025 11:52 AM EDT Encounter for weight management US PELVIS TRANSVAGINAL Routine 03/30/2025 11:41 AM EDT Intrauterine device surveillance Abnormal uterine bleeding (AUB) POCT URINALYSIS DIPSTICK Routine 03/02/2025 12:11 PM EDT Intrauterine device surveillance from Last 3 Months Results * POCT , urine manually resulted (03/30/2025 11:52 AM EDT) Preg Test, Ur Negative Negative Urine 03/30/2025 11:5 2 AM EDT us Arvind Tejada DO POINT OF CARE TEST ENTER/EDIT OR DERABLES Final Result * (ABNORMAL) POCT urinalysis dipstick manually resulted (03/30/2025 11:52 AM EDT) Only the most recent of2 resultswithin the time period is included. Color, UA Yellow Clarity, UA Clear Glucose, UA Negative Negative - 1999(110) ++++ mg/dL Bilirubin, UA Negative Negative - 4(70) +++ mg/dL Ketones, UA Positive Negative - 160(16) ++++ mg/dL Comment:trace Spec Grav, UA 1.030 1 - 1.03 Blood, UA Positive Negative - 50 Sunny/mcL Comment:small pH, UA 5.5 5 - 9 Protein, UA Negative Negative - 1999(20) ++++ mg/dL Urobilinogen, UA 1.0 0.2 - 12 mg/dL Leukocytes, UA Negative Negative - 500+++ Donis/mcL Nitrite, UA Negative Negative - Positive Urine 03/30/2025 11:5 2 AM EDT Arvind Tejada DO POINT OF CARE TEST ENTER/EDIT OR DERABLES Final Result * US pelvis transvaginal (03/30/2025 11:41 AM EDT) Anatomical Region Laterality Modality Pelvis Ultrasound 03/30/2025 6:15 PM EDT Narrative 03/30/2025 6:15 PM EDT EXAM: Pelvic Ultrasound, Transvaginal: REASON FOR EXAM: IUD placement, heavy frequent [...] report is generated using voice recognition reporting (Fashioholice). On occasion, Clikthroughcribe erroneously drops words from the report or replaces the spoken word with a similar sounding word. Please call with any questions/concerns regarding the report. Dictated and transcribed 03/30/2025/judith This report has been electronically signed and approved by the interpreting radiologist. Procedure Note Maximino Nguyễn MD - 03/30/2025 EXAM: Pelvic Ultrasound, Transvaginal: REASON FOR EXAM: IUD placement, heavy frequent periods. COMPARISON: None. TECHNIQUE: Longitudinal and transverse grayscale images with color Dopplerof the pelvis obtained endovaginally. FINDINGS: The uterus is of normal size and echogenicity, anteverted/retroflexed. The endometrium is hyperechoic and not thickened. Echogenic linear defectat the lower uterine segment anteriorly consistent with a C-sectionscar. No significant pelvic free fluid. The right ovary is slightly enlarged. Anechoic 2.04 x 2.26 x 2.41 cmnodule with enhancement the posterior wall and posterior acousticenhancement. Vascular flow identified in the right ovary. The left ovaryis not visualized sonographically. Measurements: Uterus: 7.5 x 2.9 x 4.9 cm Volume: 53.7 mL EM: 4 mm Right Ovary: 3.3 x 2.8 x 3.5 cm Volume: 16.8 mL Left Ovary: N/V IMPRESSION: 1. Shadowing structure within the endometrium -- endometrialcalcifications versus IUD. Slightly eccentric. 2. Right ovarian cyst. 3. Left ovary not visualized. This report is generated using voice recognition reporting (Scooters).On occasion, Fashioholice erroneously drops words from the report orreplaces the spoken word with a similar sounding word. Please call withany questions/concerns regarding the report. Dictated and transcribed 03/30/2025/judith This report has been electronically signed and approved by theinterpreting radiologist. us Arvind Tejada DO IMG US PROCEDURES Final Result from Last 3 Months Insurance [employer]
--- OUTSIDE RECORDS SUMMARY | 2025-04-20 09:08 | XMS_ITS | Encounter Summary ---
Author Organization [facility] Address [address] [place] [address] Care Team Providers Care Juke Box Mechanic Name Role Phone Unavailable Primary Care Provider Unavailabl e Encounter Details Date Type Department Care Team (Late st Contact Info) Description 04/11/2025 Telephone [facility] [address] [facility] [place] [address] Shari Bertrand LPN Social History Tobacco Use Types Packs/Day Years Used Date Smoking Tobacco: Never Assessed Comments No Sex and Gender Information Value Date Recorded Sex Assigned at Female 12/03/2023 12:44 PM EST Legal Sex Female 11:35 AM EST Gender Identity Female 12/03/2023 12:44 PM EST Sexual Orientation Straight 12/03/2023 12 :44 PM EST documented as of this encounter Miscellaneous Notes * Telephone Encounter - Shari Bertrand LPN - 04/11/2025 2:16 PM EDT Pt was called by Mallory reviewed ultrasound results - ordered x-ray of abdomen- pt to call centralized scheduling to get scheduled documented in this encounter Plan of Treatment Upcoming Encounters Date Type Department Care Team (Late st Contact Info) Description 04/27/2025 10:30 AM EDT Office Visit [facility] OB [address] [place] [address] Arvind Tejada, DO [address] [place], [place] [id number] Scheduled Orders Name Type Priority Associated Diagnoses Orde r Schedule XR abdomen 1 view Imaging Routine Pelvic cramping Expected: 04/11/2025, Expires: 04/11/2026 documented as of this encounter Visit Diagnoses Diagnosis Pelvic cramping documented in this encounter
== END 2025-04-20 09:03 | disposition home or self-care (01) ==
LOC: RAD 09:05
PROVIDERS: Visit Provider Obstetrics & Gynecology
DX: R10.2 Pelvic and perineal pain (principal); Z97.5 Presence of (intrauterine) contraceptive device
CPT/HCPCS: 74018

== ENCOUNTER 2025-04-26 12:23 | Outpatient (OUT) | payer OTHER, SELFPAY ==
--- OUTSIDE RECORDS SUMMARY | 2025-04-26 12:25 | XMS_ITS | Encounter Summary ---
Author Organization [facility] Address [address] [place] [address] Care Team Providers Care Housekeeper Supervisor Name Role Phone Unavailable Primary Care Provider Unavailabl e Encounter Details Date Type Department Care Team (Late st Contact Info) Description 05/27/2024 Clinisync Result Encounter [facility] External Department Unsolicited Lia Tejada, [facility] [place] [address] Social History Tobacco Use Types Packs/Day Years [...] Care Team (Late st Contact Info) Description 05/03/2025 11:00 AM EDT Office Visit [facility] [address] [place] [address] Lia Tejada [facility] [place] [address] documented as of this encounter Procedures Procedure Name Priority Date/Time Associated Diagnosis Comments US OB BPP W NON-STRESS 05/27/2024 2:56 PM EDT documented in this encounter Results * US OB BPP W NON-STRESS (05/27/2024 2:56 PM EDT) Anatomical Region Laterality Modality Other 05/27/2024 2:56 PM EDT Narrative 05/27/2024 2:58 PM EDT [place] [id number] Ultrasound Report Signed Patient: JOHANNA VELASQUEZ MR#: [id number] : 1990 Acct:[id number] Age/Sex: 34 / F ADM Date: 05/27/24 Loc: [facility] 250B-B Att[address] Dr: Lia Tejada D.O. Ordering Physician: Lia Tejada D.O. Date of Service: 05/27/24 Procedure(s): US OB BPP w non-stress Accession Number(s): [id number] cc: Lia Tejada D.O.; Physician,Non-Staff [place] [address] Patient Name: JOHANNA VELASQUEZ MRN: [id number] date: 1990 Sex: F Assigned Patient Location: US Current Patient Location: US Accession/Order Number: [id number] Exam Date: 05/27/2024 14:15 Report Date: 05/27/2024 [...] Signed By: 05/27/24 1458 DD/ 1456 TD/TT: Wire Fence Erector: Procedure Note Radiology, Radiologist, - 05/27/2024 [place] [address] Ultrasound Report Signed Patient: JOHANNA VELASQUEZMR#: [id number] : 1990Acct:[id number] Age/Sex: 34 / FADM Date: 05/27/24 Loc: [facility] 250B-[address]: Lia Tejada D.O. Ordering Physician: Lia Tejada D.O. Date of Service: 05/27/24 Procedure(s): US OB BPP w non-stress Accession Number(s): [id number] cc: Lia Tejada D.O.; Physician,Non-Staff Estee The [place] [id number] Patient Name: JOHANNA VELASQUEZ MRN: [id number] date: 1990 Sex: F Assigned Patient Location: US Current Patient Location: US Accession/Order Number: [id number] Exam Date: 05/27/2024 14:15 Report Date: 05/27/2024 [...] M.D. Signed By:05/27/24 1458 DD/ 1456 TD/TT: Wire Fence Erector: us Lia Tejada DO [facility] Final Result documented in this encounter Visit Diagnoses Not on filedocumented in this encounter
--- OUTSIDE RECORDS SUMMARY | 2025-04-26 12:25 | XMS_ITS | Encounter Summary ---
Author Organization [facility] Address [address] [place] [address] Care Team Providers Care Computer Information Science Professor Name Role Phone Unavailable Primary Care Provider Unavailabl e Encounter Details Date Type Department Care Team (Late st Contact Info) Description 04/07/2024 Abstract [facility] OB [address] [facility] [place] [address] Arvind Tejada, [address] [place], [facility]11 Social History Tobacco Use Types Packs/Day Years [...] Visit [facility] OB [address] [facility] [place] [address] Arvind Tejada DO [facility] [place], [place] [phone] documented as of this encounter Visit Diagnoses Not on filedocumented in this encounter
--- OUTSIDE RECORDS SUMMARY | 2025-04-26 12:25 | XMS_ITS | Encounter Summary ---
Author Organization [facility] Address [address] [place] [address] Care Team Providers Care Cnc Manager Name Role Phone Unavailable Primary Care Provider Unavailabl e Encounter Details Date Type Department Care Team (Late st Contact Info) Description 06/10/2024 Clinisync Result Encounter [facility] External Department Unsolicited Lia Tejada, [facility] [place] [address] Social History Tobacco Use Types Packs/Day Years [...] EDT Office Visit [facility] OB [address] [place] [address] Lia Tejada [facility] [place] [address] documented as of this encounter Procedures Procedure Name Priority Date/Time Associated Diagnosis Comments US OB BPP W NON-STRESS 06/10/2024 9:32 AM EDT documented in this encounter Results * US OB BPP W NON-STRESS (06/10/2024 9:32 AM EDT) Anatomical Region Laterality Modality Other 06/10/2024 9:32 AM EDT Narrative 06/10/2024 9:35 AM EDT [address] [address] Ultrasound Report Signed Patient: JOHANNA VELASQUEZ MR#: [id number] : 1990 Acct:[id number] Age/Sex: 34 / F ADM Date: 06/10/24 Loc: [facility] 250-[address]: Lia Tejada D.O. Ordering Physician: Lia Tejada D.O. Date of Service: 06/10/24 Procedure(s): US OB BPP w non-stress Accession Number(s): [id number] cc: Lia Tejada D.O.; Physician,Non-Staff [place]ee [place] [id number] Patient Name: JOHANNA VELASQUEZ MRN: [id number] date: 1990 Sex: F Assigned Patient Location: [facility] Current Patient Location: [facility] Accession/Order Number: [id number] Exam Date: 06/10/2024 08:50 Report Date: 06/10/2024 [...] Signed By: 06/10/24 0935 DD/ 1 TD/TT: Card Stripper: Procedure Note Radiology, Radiologist, - 06/10/2024 [place] [address] Ultrasound Report Signed Patient: JOHANNA VELASQUEZMR#: [id number] : 1990Acct:[id number] Age/Sex: 34 / FADM Date: 06/10/24 Loc: [facility] 250-[address]: Lia Tejada D.O. Ordering Physician: Lia Tejada D.O. Date of Service: 06/10/24 Procedure(s): US OB BPP w non-stress Accession Number(s): [id number] cc: Lia Tejada D.O.; Physician,Non-Staff Estee The [place] [id number] Patient Name: JOHANNA VELASQUEZ MRN: [id number] date: 1990 Sex: F Assigned Patient Location: [facility] Current Patient Location: [facility] Accession/Order Number: [id number] Exam Date: 06/10/2024 08:50 Report Date: 06/10/2024 [...] Bey M.D. Signed By:06/10/2435 DD/ 0932 TD/TT: Card Stripper: us Lia Starro DO [facility] Final Result documented in this encounter Visit Diagnoses Not on filedocumented in this encounter
--- OUTSIDE RECORDS SUMMARY | 2025-04-26 12:25 | XMS_ITS | Encounter Summary ---
Author Organization [facility] Address [address] [place] [address] Care Team Providers Care Operations Research Director Name Role Phone Unavailable Primary Care Provider Unavailabl e Encounter Details Date Type Department Care Team (Late st Contact Info) Description 06/13/2024 Abstract [facility] OB [address] [place] [address] Arvind Tejada, [address] [place], [facility]11 Social History Tobacco Use Types Packs/Day [...] EDT Office Visit [facility] OB [address] [facility] [place] [address] Arvind Tejada DO [facility] [place], [place] [id number] documented as of this encounter Visit Diagnoses Not on filedocumented in this encounter
--- OUTSIDE RECORDS SUMMARY | 2025-04-26 12:25 | XMS_ITS | Encounter Summary ---
Author Organization [facility] Address [address] [place] [address] Care Team Providers Care Cash Register Servicer Name Role Phone Unavailable Primary Care Provider Unavailabl e Encounter Details Date Type Department Care Team (Late st Contact Info) Description 02/24/2024 Clinisync Result Encounter [facility] External Department Unsolicited Lia Tejada, DO [facility] [place] [address] Social History Tobacco Use Types Packs/Day Years [...] 05/03/2025 11:00 AM EDT Office Visit [facility] OB [address] [place] [address] Lia Tejada DO [address] [place] [address] documented as of this encounter Procedures Procedure Name Priority Date/Time Associated Diagnosis Comments US OB ANATOMY 02/24/2024 3:02 PM EDT documented in this encounter Results * US OB ANATOMY (02/24/2024 3:02 PM EDT) Anatomical Region Laterality Modality Other 02/24/2024 3:02 PM EDT Narrative 02/24/2024 3:05 PM EDT [address] [address] Ultrasound Report Signed Patient: JOHANNA VELASQUEZ MR#: [id number] : 1990 Acct:[id number] Age/Sex: 34 / F ADM Date: 02/24/24 Loc: [facility] Attending Dr: Lia Tejada D.O. Ordering Physician: Lia Tejada D.O. Date of Service: 02/24/24 Procedure(s): US OB anatomy Accession Number(s): [id number] cc: Lia Tejada D.O.; Physician,Non-Staff Estee [address] [address] Patient Name: JOHANNA VELASQUEZ MRN: [facility]:[id number] date: 1990 Sex: F Assigned Patient Location: [facility] Current Patient Location: [facility] Accession/Order Number: [id number] Exam Date: 02/24/2024 13:41 Report Date: 02/24/2024 [...] Signed By: 02/24/24 1505 DD/ 1502 TD/TT: Sorting Grapple Operator: Procedure Note Radiology, Radiologist, MD - 02/24/2024 [place] [address] Ultrasound Report Signed Patient: JOHANNA VELASQUEZMR#: [id number] : 1990Acct:[id number] Age/Sex: 34 / FADM Date: 02/24/24 Loc: [facility] Attending Dr: Lia Tejada D.O. Ordering Physician: Lia Tejada D.O. Date of Service: 02/24/24 Procedure(s): US OB anatomy Accession Number(s): [id number] cc: Lia Tejada D.O.; Physician,Non-Staff Estee The [place] [address] Patient Name: JOHANNA VELASQUEZ MRN: [id number] date: 1990 Sex: F Assigned Patient Location: [facility] Current Patient Location: [facility] Accession/Order Number: [id number] Exam Date: 02/24/2024 13:41 Report Date: 02/24/2024 [...] M.D. Signed By:02/24/24 1505 DD/ 1502 TD/TT: Sorting Grapple Operator: us Lia Mallory DO [facility] Final Result documented in this encounter Visit Diagnoses Not on filedocumented in this encounter
--- OUTSIDE RECORDS SUMMARY | 2025-04-26 12:25 | XMS_ITS | Encounter Summary ---
Author Organization [facility] Address [address] [place] [address] Care Team Providers Care Manufacturing Analyst Name Role Phone Unavailable Primary Care Provider Unavailabl e Encounter Details Date Type Department Care Team (Late st Contact Info) Description 12/10/2023 Clinisync Result Encounter [facility] External Department Unsolicited Lia Tejada, [facility] [place] [address] Social History Tobacco Use Types Packs/Day Years [...] 05/03/2025 11:00 AM EDT Office Visit [facility] OB [address] [facility] [place] [address] Lia Tejada DO [facility] [place] [address] documented as of this encounter Procedures Procedure Name Priority Date/Time Associated Diagnosis Comments US OB TRANSVAGINAL 12/10/2023 1: 24 PM EST documented in this encounter Results * US OB TRANSVAGINAL (12/10/2023 1:24 PM EST) Anatomical Region Laterality Modality Other 12/10/2023 1:24 PM EST Narrative 12/10/2023 1:27 [place] [address] Ultrasound Report Signed Patient: JOHANNA VELASQUEZ MR#: [id number] : 1990 Acct:[id number] Age/Sex: 33 / F ADM Date: 12/10/23 Loc: US Attending Dr: Lia Tejada D.O. Ordering Physician: Lia Tejada D.O. Date of Service: 12/10/23 Procedure(s): US OB transvaginal Accession Number(s): [id number] cc: Lia Tejada D.O.; Physician,Non-Staff [place] [address] Patient Name: JOHANNA VELASQUEZ MRN: [id number] date: 1990 Sex: F Assigned Patient Location: US Current Patient Location: US Accession/Order Number: [id number] Exam Date: 12/10/2023 12:17 Report Date: 12/10/2023 [...] Signed By: 12/10/23 1327 DD/ 23 TD/TT: Potato Loader: Procedure Note Radiology, Radiologist, MD - 12/10/2023 [place] [address] Ultrasound Report Signed Patient: JOHANNA VELASQUEZMR#: [id number] : 1990Acct:[id number] Age/Sex: 33 / FADM Date: 12/10/23 Loc: US Attending Dr: Lia Tejada D.O. Ordering Physician: Lia Tejada D.O. Date of Service: 12/10/23 Procedure(s): US OB transvaginal Accession Number(s): [id number] cc: Lia Tejada D.O.; Physician,Non-Staff Estee The [place] [id number] Patient Name: JOHANNA VELASQUEZ MRN: [id number] date: 1990 Sex: F Assigned Patient Location: US Current Patient Location: US Accession/Order Number: [id number] Exam Date: 12/10/2023 12:17 Report Date: 12/10/2023 [...] Bey M.D. Signed By:12/10/237 DD/ 23 TD/TT: Potato Loader: us Lia Tejada DO [facility] Final Result documented in this encounter Visit Diagnoses Not on filedocumented in this encounter
--- OUTSIDE RECORDS SUMMARY | 2025-04-26 12:25 | XMS_ITS | Encounter Summary ---
Author Organization [facility] Address [address] [place] [address] Care Team Providers Care Olive Grower Name Role Phone Unavailable Primary Care Provider Unavailabl e Encounter Details Date Type Department Care Team (Late st Contact Info) Description 06/23/2024 Abstract [facility] OB [address] [place] [address] Arvind Tejada, [address] [place], [facility]11 Social History Tobacco Use Types Packs/Day [...] EDT Office Visit [facility] OB [address] [facility] [place] [address] Arvind Tejada DO [facility] [place], [place] [id number] documented as of this encounter Visit Diagnoses Not on filedocumented in this encounter
--- OUTSIDE RECORDS SUMMARY | 2025-04-26 12:25 | XMS_ITS | Encounter Summary ---
Author Organization [facility] Address [address] [place] [address] Care Team Providers Care Saute Chef Name Role Phone Unavailable Primary Care Provider Unavailabl e Encounter Details Date Type Department Care Team (Late st Contact Info) Description 06/22/2024 Abstract [facility] OB [address] [place] [address] Arvind Tejada, [address] [place], [facility] Social History Tobacco Use Types Packs/Day [...] EDT Office Visit [facility] OB [address] [facility] [place] [address] Arvind Tejada DO [facility] [place], [place] [phone] documented as of this encounter Visit Diagnoses Not on filedocumented in this encounter
--- OUTSIDE RECORDS SUMMARY | 2025-04-26 12:25 | XMS_ITS | Encounter Summary ---
Author Organization [facility] Address [address] [place] [address] Care Team Providers Care Hot Roll Laminator Name Role Phone Unavailable Primary Care Provider Unavailabl e Encounter Details Date Type Department Care Team (Late st Contact Info) Description 06/17/2024 Clinisync Result Encounter NOMS External Department Unsolicited Lia Tejada, DO [facility] [place] [address] Social History Tobacco Use Types Packs/Day Years [...] EDT Office Visit [facility] BCP OB [address] [place] [phone] [address] [facility] [place] [address] documented as of this encounter Procedures Procedure Name Priority Date/Time Associated Diagnosis Comments US OB BPP W NON-STRESS 06/17/2024 10:32 AM EDT documented in this encounter Results * US OB BPP W NON-STRESS (06/17/2024 10:32 AM EDT) Anatomical Region Laterality Modality Other 06/17/2024 10:3 2 AM EDT Narrative 06/17/2024 10:35 [place] [address] Ultrasound Report Signed Patient: JOHANNA VELASQUEZ MR#: [id number] : 1990 Acct:[id number] Age/Sex: 34 / F ADM Date: 06/17/24 Loc: [facility] 250-[address]: Lia Tejada D.O. Ordering Physician: Lia Tejada D.O. Date of Service: 06/17/24 Procedure(s): US OB BPP w non-stress Accession Number(s): [id number] cc: Lia Tejada D.O.; Physician,Non-Staff [place] [address] Patient Name: JOHANNA VELASQUEZ MRN: [id number] date: 1990 Sex: F Assigned Patient Location: [facility] Current Patient Location: [facility] Accession/Order Number: [id number] Exam Date: 06/17/2024 09:42 Report Date: 06/17/2024 [...] Signed By: 06/17/24 1035 DD/ 1032 TD/TT: Supervisor Loading: Procedure Note Radiology, Radiologist, MD - 06/17/2024 [place] [address] Ultrasound Report Signed Patient: JOHANNA VELASQUEZMR#: [id number] : 1990Acct:[id number] Age/Sex: 34 / FADM Date: 06/17/24 Loc: [facility] 250-[address]: Lia Tejada D.O. Ordering Physician: Lia Tejada D.O. Date of Service: 06/17/24 Procedure(s): US OB BPP w non-stress Accession Number(s): [id number] cc: Lia Tejada D.O.; Physician,Non-Staff Estee The [address] [address] Patient Name: JOHANNA VELASQUEZ MRN: [facility]:[id number] date: 1990 Sex: F Assigned Patient Location: [facility] Current Patient Location: [facility] Accession/Order Number: [id number] Exam Date: 06/17/2024 09:42 Report Date: 06/17/2024 [...] M.D. Signed By:06/17/24 1035 DD/ 31 TD/TT: Supervisor Loading: us Lia Mallory DO [facility] Final Result documented in this encounter Visit Diagnoses Not on filedocumented in this encounter
--- OUTSIDE RECORDS SUMMARY | 2025-04-26 12:25 | XMS_ITS | Encounter Summary ---
Author Organization [facility] Address [address] [place] [address] Care Team Providers Care Box Car Washer Name Role Phone Unavailable Primary Care Provider Unavailabl e Encounter Details Date Type Department Care Team (Late st Contact Info) Description 06/13/2024 Abstract [facility] BCP OB [address] [employer] [place] [address] Lizbeth Lomas LPN [address] [facility] [place] [address] Social History Tobacco Use Types Packs/Day Years [...] EDT Office Visit [facility] BCP OB [address] [place] [address] Arvind Tejada DO [address] [place], [place] [phone] documented as of this encounter Visit Diagnoses Not on filedocumented in this encounter
--- OUTSIDE RECORDS SUMMARY | 2025-04-26 12:25 | XMS_ITS | Encounter Summary ---
Author Organization [facility] Address [address] [place] [address] Care Team Providers Care Atm Technician Name Role Phone Unavailable Primary Care Provider Unavailabl e Encounter Details Date Type Department Care Team (Late st Contact Info) Description 04/20/2025 Clinisync Result Encounter NOMS External Department Unsolicited Lia Tejada, [address] [place] [address] Social History Tobacco Use Types Packs/Day Years [...] 05/03/2025 11:00 AM EDT Office Visit [facility] OB [address] [facility] [place] [address] Lia Tejada, [address] [place] [address] documented as of this encounter Procedures Procedure Name Priority Date/Time Associated Diagnosis Comments XR ABDOMEN 1V 04/20/2025 10:22 AM EDT documented in this encounter Results * XR ABDOMEN 1V (04/20/2025 10:22 AM EDT) Anatomical Region Laterality Modality Other 04/20/2025 10:2 2 AM EDT Narrative 04/20/2025 10:25 AM EDT [address] [address] XRay Report Signed Patient: JOHANNA VELASQUEZ MR#: [id number] : 1990 Acct:[id number] Age/Sex: 35 / F ADM Date: 04/20/25 Loc: RAD Attending Dr: Lia Tejada D.O. Ordering Physician: Lia Tejada D.O. Date of Service: 04/20/25 Procedure(s): XR abdomen 1V Accession Number(s): [id number] cc: Lia Tejada D.O.; Physician,Non-Staff [place] [address] Patient Name: JOHANNA VELASQUEZ MRN: [id number] date: 1990 Sex: F Assigned Patient Location: [facility] Current Patient Location: [facility] Accession/Order Number: [id number] Exam Date: 04/20/2025 10:20 Report Date: 04/20/2025 10:22 At the request of: LIA TEJADA DO Procedure: XR abdomen 1V SINGLE VIEW ABDOMEN COMPARISON: None CLINICAL DATA: Pelvic cramping and abnormal menses. Assessment for presence of IUD. Supine view of the abdomen and pelvis was obtained. There is air and stool along the colon. No dilated small bowel loops are identified. No soft tissue masses or suspect renal calculi are seen. A T-shaped IUD is visualized within the pelvis overlying the lower sacrum on the left. The bony structures are intact. XR/XR abdomen 1V IMPRESSION: NONOBSTRUCTIVE BOWEL GAS PATTERN. IUD IDENTIFIED WITHIN THE PELVIS. Impression dictated by: Shari Andrade M.D. 04/20/2025 10:22 AM Dictation Location: [place] [address] Electronically authenticated by: [id number] Y Date: 04/20/2025 10:22 Dictated By: Shari Andrade M.D. Signed By: 04/20/25 1025 DD/ 1022 TD/TT: Ocean Freight Forwarder: Procedure Note Radiology, Radiologist, MD - 04/20/2025 [place] [address] XRay Report Signed Patient: JOHANNA VELASQUEZMR#: [id number] : 1990Acct:[id number] Age/Sex: 35 / FADM Date: 04/20/25 Loc: RAD Attending Dr: Lia Tejada D.O. Ordering Physician: Lia Tejada D.O. Date of Service: 04/20/25 Procedure(s): XR abdomen 1V Accession Number(s): [id number] cc: Lia Tejada D.O.; Physician,Non-Staff Estee The [place] [address] Patient Name: JOHANNA VELASQUEZ MRN: [id number] date: 1990 Sex: F Assigned Patient Location: [facility] Current Patient Location: [facility] Accession/Order Number: [id number] Exam Date: 04/20/2025 10:20 Report Date: 04/20/2025 10:22 At the request of: LIA TEJADA DO Procedure: XR abdomen 1V SINGLE VIEW ABDOMEN COMPARISON: None CLINICAL DATA: Pelvic cramping and abnormal menses. Assessment forpresence of IUD. Supine view of the abdomen and pelvis was obtained. There is air andstool along the colon. No dilated small bowel loops are identified. No softtissue masses or suspect renal calculi are seen. A T-shaped IUD is visualizedwithin the pelvis overlying the lower sacrum on the left. The bony structuresare intact. XR/XR abdomen 1V IMPRESSION: NONOBSTRUCTIVE BOWEL GAS PATTERN. IUD IDENTIFIED WITHIN THE PELVIS. Impression dictated by: Shari Andrade M.D. 04/20/2025 10:22 AM Dictation Location: [place] [address] Electronically authenticated by: [id number] Y Date: 0:22 Dictated By: Shari Andrade M.D. Signed By:04/20/25 1025 DD/ 1022 TD/TT: Ocean Freight Forwarder: Lia Tejada DO [facility] Final Result documented in this encounter Visit Diagnoses Not on filedocumented in this encounter
--- OUTSIDE RECORDS SUMMARY | 2025-04-26 12:25 | XMS_ITS | Clinical Summary ---
Author Organization [facility] Address [address] [place] [address] Care Team Providers Care Telecommunications Officer Name Role Phone Unavailable Primary Care [...] Encounters Date Type Department Care Team Description 04/20/2025 Clinisync Result Encounter NOMS External Department Unsolicited Lia Tejada DO 04/11/2025 Telephone [facility] OB [address] [facility] [place] [address] Shari Bertrand LPN 04/03/2025 Telephone [facility] [address] [place] [address] Latanya Barkley LPN 03/30/2025 11:30 AM EDT Office Visit [facility] [address] [place] [address] Lia Tejada DO Encounter for weight management; Abnormal uterine bleeding (AUB); Sterilization consult 03/30/2025 11:00 AM EDT Ancillary Procedure [facility] [address] [place] [address] Intrauterine device surveillance; Abnormal uterine bleeding (AUB) 03/02/2025 11:50 AM EDT Office Visit [facility] [address] [place] [address] Lia Tejada DO Intrauterine device surveillance; Abnormal uterine bleeding (AUB); Encounter for weight management; Hidradenitis suppurativa 03/02/2025 Bamboo flowsheet [facility] [address] [place] [address] Lia Tejada DO from Last 3 Months Social [...] EDT Office Visit N[facility] BCP OB [address] [facility] [place] [address] Lia Tejada DO [address] [facility] [place] [address] Procedures Procedure Name Priority Date/Time Associated Diagnosis Comments XR ABDOMEN 1V 04/20/2025 10:22 AM EDT POCT , URINE Routine 03/30/2025 11:52 AM EDT Encounter for weight management POCT URINALYSIS DIPSTICK Routine 03/30/2025 11:52 AM EDT Encounter for weight management US PELVIS TRANSVAGINAL Routine 03/30/2025 11:41 AM EDT Intrauterine device surveillance Abnormal uterine bleeding (AUB) POCT URINALYSIS DIPSTICK Routine 03/02/2025 12:11 PM EDT Intrauterine device surveillance from Last 3 Months Results * XR ABDOMEN 1V (04/20/2025 10:22 AM EDT) Anatomical Region Laterality Modality Other 04/20/2025 10:2 2 AM EDT Narrative 04/20/2025 10:25 AM EDT The [address] [address] XRay Report Signed Patient: SABRINA VELASQUEZ MR#: [id number] : 1990 Acct:[id number] Age/Sex: 35 / F ADM Date: 04/20/25 Loc: RAD Attending Dr: Lia Tejada D.O. Ordering Physician: Lia Tejada D.O. Date of Service: 04/20/25 Procedure(s): XR abdomen 1V Accession Number(s): [id number] cc: Lia Tejada D.O.; Physician,Non-Staff M.DCarlos The [address] [address] Patient Name: SABRINA VELASQUEZ MRN: [id number] date: 1990 Sex: F Assigned Patient Location: [facility] Current Patient Location: [facility] Accession/Order Number: [id number] Exam Date: 04/20/2025 10:20 Report Date: 04/20/2025 [...] Andrade M.D. 04/20/2025 10:22 AM Dictation Location: [place] [address] Electronically authenticated by: [id number] Y Date: 04/20/2025 10:22 Dictated By: Shari Andrade M.D. Signed By: 04/20/25 1025 DD/ 1022 TD/TT: Director Of Strategic Initiatives: Procedure Note Radiology, Radiologist, MD - 04/20/2025 [place] [address] XRay Report Signed Patient: SABRINA VELASQUEZMR#: [id number] : 1990Acct:[id number] Age/Sex: 35 / FADM Date: 04/20/25 Loc: [facility] Attending Dr: Lia Tejada D.O. Ordering Physician: Lia Tejada D.O. Date of Service: 04/20/25 Procedure(s): XR abdomen 1V Accession Number(s): [id number] cc: Lia Tejada D.O.; Physician,Non-Staff MLilian The [place] [id number] Patient Name: SABRINA VELASQUEZ MRN: [id number] date: 1990 Sex: F Assigned Patient Location: [facility] Current Patient Location: [facility] Accession/Order Number: [id number] Exam Date: 04/20/2025 10:20 Report Date: 04/20/2025 [...] Andrade M.D. 04/20/2025 10:22 AM Dictation Location: [place] [address] Electronically authenticated by: [id number] Y Date: 0:22 Dictated By: Shari Andrade M.D. Signed By:04/20/25 1025 DD/ 1022 TD/TT: Director Of Strategic Initiatives: Lia Tejada DO [facility] Final Result * POCT , urine manually resulted (03/30/2025 11:52 AM EDT) Preg Test, Ur Negative Negative Urine 03/30/2025 11:5 2 AM EDT Lia Tejada DO POINT OF CARE TEST ENTER/EDIT [...] Positive Urine 03/30/2025 11:5 2 AM EDT us Lia Mallory DO POINT OF CARE TEST ENTER/EDIT OR [...] report is generated using voice recognition reporting (Kuailexue). On occasion, PowerScribe erroneously drops words from the report or [...] report is generated using voice recognition reporting (Kuailexue).On occasion, PowerScribe erroneously drops words from the report orreplaces the spoken word with a similar sounding word. Please call withany questions/concerns regarding the report. Dictated and transcribed 03/30/2025/ This report has been electronically signed and approved by theinterpreting radiologist. us Lia Tejada DO IM US PROCEDURES Final Result from Last 3 Months Insurance [employer]
--- OUTSIDE RECORDS SUMMARY | 2025-04-26 12:25 | XMS_ITS | Encounter Summary ---
Author Organization [facility] Address [address] [place] [address] Care Team Providers Care Energy Systems Laboratory Director Name Role Phone Unavailable Primary Care Provider Unavailabl e Encounter Details Date Type Department Care Team (Late st Contact Info) Description 06/15/2024 Abstract [facility] BCP OB [address] [employer] [place] [address] Lizbeth Lomas LPN [address] [facility] [place] [address] Social History Tobacco Use Types Packs/Day Years [...] EDT Office Visit [facility] BCP OB [address] [place] [address] Arvind Tejada DO [address] [place], [place] [address] documented as of this encounter Visit Diagnoses Not on filedocumented in this encounter
--- OUTSIDE RECORDS SUMMARY | 2025-04-26 12:25 | XMS_ITS | Encounter Summary ---
Author Organization [facility] Address [address] [place] [address] Care Team Providers Care Shuttle Final Inspector Name Role Phone Unavailable Primary Care Provider Unavailabl e Encounter Details Date Type Department Care Team (Late st Contact Info) Description 06/06/2024 Clinisync Result Encounter NOMS External Department Unsolicited Lia Tejada, [facility] [place] [address] Social History Tobacco Use Types Packs/Day Years [...] EDT Office Visit [facility] BCP OB [address] [place] [phone] Lia Tejada [facility] [place] [address] documented as of this encounter Procedures Procedure Name Priority Date/Time Associated Diagnosis Comments US OB BPP W NON-STRESS 06/06/2024 6:30 AM EDT documented in this encounter Results * US OB BPP W NON-STRESS (06/06/2024 6:30 AM EDT) Anatomical Region Laterality Modality Other 06/06/2024 6:30 AM EDT Narrative 06/06/2024 6:33 AM EDT [place] [id number] Ultrasound Report Signed Patient: JOHANNA VELASQUEZ MR#: [id number] : 1990 Acct:[id number] Age/Sex: 34 / F ADM Date: 06/04/24 Loc: US Attending Dr: Lia Tejada D.O. Ordering Physician: Lia Tejdaa D.O. Date of Service: 06/04/24 Procedure(s): US OB BPP w non-stress Accession Number(s): [id number] cc: Lia Tejada D.O.; Physician,Non-Staff [place]ee [place] [phone] Patient Name: JOHANNA VELASQUEZ MRN: [id number] date: 1990 Sex: F Assigned Patient Location: US Current Patient Location: Accession/Order Number: [id number] Exam Date: 06/04/2024 09:00 Report Date: 06/06/2024 [...] M.D. Signed By: 06/06/24632 DD/ 9 TD/TT: Oil Pipeline Operator: Procedure Note Radiology, Radiologist, MD - 06/06/2024 The [place] [id number] Ultrasound Report Signed Patient: JOHANNA VELASQUEZMR#: [id number] : 1990Acct:[id number] Age/Sex: 34 / FADM Date: 06/04/24 Loc: US Attending Dr: Lia Tejada D.O. Ordering Physician: Lia Tejada D.O. Date of Service: 06/04/24 Procedure(s): US OB BPP w non-stress Accession Number(s): [id number] cc: Lia Tejada D.O.; Physician,Non-Staff Estee The [place] [phone] Patient Name: JOHANNA VELASQUEZ MRN: [id number] date: 1990 Sex: F Assigned Patient Location: US Current Patient Location: Accession/Order Number: [id number] Exam Date: 06/04/2024 09:00 Report Date: 06/06/2024 [...] Bey M.D. Signed By:06/06/2433 DD/ 9 TD/TT: Oil Pipeline Operator: us Lia Tejada DO [facility] Final Result documented in this encounter Visit Diagnoses Not on filedocumented in this encounter
--- OUTSIDE RECORDS SUMMARY | 2025-04-26 12:25 | XMS_ITS | Clinical Summary ---
Author Organization [employer] Address [id number] [address] [place] [address] Care Team Providers Care Sas Administrator Name Role Phone MalloryArvind bearden Naun TELLEZ Primary Care Provider Allergies No known active allergies Medications ibuprofen [...] on file Insurance [employer] Care Teams Sas Administrator Relationship Specialty Start Date End Date Arvind Tejada DO PCP - General Obstetrics & Gynecology 07/05/24
--- OUTSIDE RECORDS SUMMARY | 2025-04-26 12:25 | XMS_ITS | Encounter Summary ---
Author Organization [facility] Address [address] [place] [address] Care Team Providers Care Digital Service Engineer Name Role Phone Unavailable Primary Care Provider Unavailabl e Encounter Details Date Type Department Care Team (Late st Contact Info) Description 06/21/2024 Abstract [facility] BCP OB [address] [place] [address] Arvind Tejada, [address] [place], [id number] Social History Tobacco Use Types Packs/Day Years [...] EDT Office Visit [facility] BCP OB [address] [facility] [place] [address] Arvind Tejada DO [facility] [place], [place] [phone] documented as of this encounter Visit Diagnoses Not on filedocumented in this encounter
--- OUTSIDE RECORDS SUMMARY | 2025-04-26 12:25 | XMS_ITS | Encounter Summary ---
Author Organization [facility] Address [address] [place] [address] Care Team Providers Care Audiovisual Lead Technician Name Role Phone Unavailable Primary Care Provider Unavailabl e Encounter Details Date Type Department Care Team (Late st Contact Info) Description 05/19/2024 Clinisync Result Encounter NOMS External Department Unsolicited Yessica Vela PA [address] [facility] [address] [place], [facility] Social History Tobacco Use Types Packs/Day [...] Office Visit NOMS BCP OB [address] [facility] [phone] Arvind Tejada DO [address] [place] [address] documented as of this encounter Procedures Procedure Name Priority Date/Time Associated Diagnosis Comments US OB GROWTH 05/19/2024 1:44 PM EDT documented in this encounter Results * US OB GROWTH (05/19/2024 1:44 PM EDT) Anatomical Region Laterality Modality Other 05/19/2024 1:44 PM EDT Narrative 05/19/2024 1:47 PM EDT [address] [address] Ultrasound Report Signed Patient: JOHANNA VELASQUEZ MR#: [id number] : 1990 Acct:[id number] Age/Sex: 34 / F ADM Date: 05/19/24 Loc: NOMS Attending Dr: Yessica Vela Ordering Physician: Yessica Vela Date of Service: 05/19/24 Procedure(s): US OB growth Accession Number(s): [id number] cc: Yessica [place]; Physician,Non-Staff M.DCarlos [address] [address] Patient Name: JOHANNA VELASQUEZ MRN: [id number] date: 1990 Sex: F Assigned Patient Location: [facility] Current Patient Location: [facility] Accession/Order Number: [id number] Exam Date: 05/19/2024 08:29 Report Date: 05/19/2024 [...] Signed By: 05/19/24 1347 DD/ 43 TD/TT: Foreign Banknote Teller Trader: Procedure Note Radiology, Radiologist, - 05/19/2024 [place] [address] Ultrasound Report Signed Patient: JOHANNA VELASQUEZMR#: [id number] : 1990Acct:[id number] Age/Sex: 34 / FADM Date: 05/19/24 Loc: [facility] Attending Dr: Yessica Vela Ordering Physician: Yessica Vela Date of Service: 05/19/24 Procedure(s): US OB growth Accession Number(s): [id number] cc: Yessica [place]ela; Physician,Non-Staff Estee The [place] [address] Patient Name: JOHANNA VELASQUEZ MRN: [facility]:[id number] date: 1990 Sex: F Assigned Patient Location: [facility] Current Patient Location: [facility] Accession/Order Number: [id number] Exam Date: 05/19/2024 08:29 Report Date: 05/19/2024 [...] M.D. Signed By:05/19/24 1347 DD/ 1344 TD/TT: Foreign Banknote Teller Trader: us Yessica SLOAN [facility] Final Result documented in this encounter Visit Diagnoses Not on filedocumented in this encounter
--- OUTSIDE RECORDS SUMMARY | 2025-04-26 12:25 | XMS_ITS | Encounter Summary ---
Author Organization [facility] Address [address] [place] [address] Care Team Providers Care Social And Human Services Assistant Name Role Phone Unavailable Primary Care Provider Unavailabl e Encounter Details Date Type Department Care Team (Late st Contact Info) Description 02/24/2024 Clinisync Result Encounter NOMS External Department Unsolicited Lia Tejada, DO [facility] [place] [address] Social History Tobacco Use Types Packs/Day Years [...] 05/03/2025 11:00 AM EDT Office Visit N[facility] OB [address] [facility] [place] [address] Lia Tejada, [address] [place] [address] documented as of this encounter Procedures Procedure Name Priority Date/Time Associated Diagnosis Comments US OB CERVICAL LENGTH 02/24/2024 3:02 PM EDT documented in this encounter Results * US OB CERVICAL LENGTH (02/24/2024 3:02 PM EDT) Anatomical Region Laterality Modality Other 02/24/2024 3:02 PM EDT Narrative 02/24/2024 3:05 [place] [address] Ultrasound Report Signed Patient: JOHANNA VELASQUEZ MR#: [id number] : 1990 Acct:[id number] Age/Sex: 34 / F ADM Date: 02/24/24 Loc: [facility] Attending Dr: Lia Tejada D.O. Ordering Physician: Lia Tejada D.O. Date of Service: 02/24/24 Procedure(s): US OB cervical length Accession Number(s): [id number] cc: Lia Tejada D.O.; Physician,Non-Staff Estee [address] [address] Patient Name: JOHANNA VELASQUEZ MRN: [id number] date: 1990 Sex: F Assigned Patient [facility] Current Patient Location: [facility] Accession/Order Number: [id number] Exam Date: 02/24/2024 13:40 Report Date: 02/24/2024 [...] Signed By: 02/24/24 1505 DD/ 1502 TD/TT: Credit Investigator: Procedure Note Radiology, Radiologist, MD - 02/24/2024 [place] [address] Ultrasound Report Signed Patient: JOHANNA VELASQUEZMR#: [id number] : 1990Acct:[id number] Age/Sex: 34 / FADM Date: 02/24/24 Loc: [facility] Attending Dr: Lia Tejada D.O. Ordering Physician: Lia Tejada D.O. Date of Service: 02/24/24 Procedure(s): US OB cervical length Accession Number(s): [id number] cc: Lia Tejada D.O.; Physician,Non-Staff Estee The [place] [address] Patient Name: JOHANNA VELASQUEZ MRN: [facility]:[id number] date: 1990 Sex: F Assigned Patient Location: [facility] Current Patient Location: [facility] Accession/Order Number: [id number] Exam Date: 02/24/2024 13:40 Report Date: 02/24/2024 [...] M.D. Signed By:02/24/24 1505 DD/ 1502 TD/TT: Credit Investigator: us Lia Mallory DO [facility] Final Result documented in this encounter Visit Diagnoses Not on filedocumented in this encounter
--- OUTSIDE RECORDS SUMMARY | 2025-04-26 12:25 | XMS_ITS | Encounter Summary ---
Author Organization [facility] Address [address] [place] [address] Care Team Providers Care Brush Fabrication Supervisor Name Role Phone Unavailable Primary Care Provider Unavailabl e Encounter Details Date Type Department Care Team (Late st Contact Info) Description 06/24/2024 Abstract [facility] BCP OB [address] [facility] [place] [address] Candi Ozuna LPN [address] [place] [phone] Social History Tobacco Use Types Packs/Day Years [...] OB [address] [facility] [place] [address] Arvind Tejada DO [address] [place] [address] [place] [address] documented as of this encounter Visit Diagnoses Not on filedocumented in this encounter
--- OUTSIDE RECORDS SUMMARY | 2025-04-26 12:25 | XMS_ITS | Encounter Summary ---
Author Organization [facility] Address [address] [place] [address] Care Team Providers Care Communication Center Operator Name Role Phone Unavailable Primary Care Provider Unavailabl e Encounter Details Date Type Department Care Team (Late st Contact Info) Description 06/07/2024 Abstract [facility] [address] [facility] [place] [address] Arvind Tejada, [address] Pat [place], [id number] Social History Tobacco Use Types Packs/Day Years [...] EDT Office Visit [facility] [address] [facility] [place] [address] Arvind Tejada DO [facility] [place] [place], [place] [id number] documented as of this encounter Visit Diagnoses Not on filedocumented in this encounter
--- OUTSIDE RECORDS SUMMARY | 2025-04-26 12:43 | XMS_ITS | CCD ---
Author Organization [facility] Care Team Providers Care Hotel Front Office Manager Name Role Phone Killian, Omid Sandadi Unavailable Unavailabl e MOROCCO, VANESSA Unavailable Unavailable KILLIAN, OMID SANDADI Unavailable Unavailabl e SYSTEM, PROVIDER NOT IN Unavailable Unavaila bettina TRACY, NOWDOREEN GHAZI YASIN Unavailable Unav ailable LOGAN ZAMAN Unavailable Unavailabl e KILLIAN, OMID SANDADI Unavailable Unavailabl e Killian, Omid Sandadi Primary Care Provider KILLIAN, OMID SANDADI Primary Care Unavailabl e ALICIA HUDSON Attending Unavailable MD Radha Tomas Attending Provider Radha Tomas Admitting Unavailable Radha Tomas Attending Unavailable KAI FERGUSON Attending Unavailable Unavailable Primary Care Provider Unavailabl e MALLORY, ARVIND Attending Unavailable MIRIAN, YESSICA Attending Unavailable MALLORY, ARVIND Attending Unavailable MIRIAN YESSICA Attending Unavailable MALLORY, ARVIND Attending Unavailable MALLORY, ARVIND Attending Unavailable MALLORY, ARVIND Attending Unavailable MALLORY, ARVIND Attending Unavailable MALLORY, ARVIND Attending Unavailable MIRIAN, YESSICA Attending Unavailable MIRIAN, YESSICA Attending Unavailable MALLORY, ARVIND Attending Unavailable MALLORY, ARVIND Attending Unavailable MALLORY, ARVIND Attending Unavailable Medications Current Medications Medication Drug Class(es) Dates Sig (Normalized) Sig (Original) adapalene 0.003 mg/mg / benzoyl peroxide 0.025 mg/mg topical gel (4 sources) Retinoid Start: 05-17-2018 adapalene-benzoyl peroxide (EPIDUO FORTE) 0.3-2.5 % GlwP Apply 1 application topically daily. 45 g 1 05/17/2018 Active levonorgestrel 0.465689 mg/hr intrauterine system (7 sources) Progestin, Progestin-containi ng Intrauterine Device Start: 08-16-2024 End: 08-15-2029 Levonorgestrel intrauterine device 52 mg 24 hr metFORMIN hydrochloride 500 mg extended release oral tablet (6 sources) Biguanide Start: 03-30-2025 End: 04-29-2025 take 2 tablets by mouth every twenty-four hours at mealtime metFORMIN XR (Glucophage-XR) 500 MG 24 hr tablet Indications: Encounter for weight management Take 2 tablets (1,000 mg) by mouth in the evening. Take with meals Do not crush, chew, or split. 30 tablet 11 03/30/2025 04/29/2025 Active Start: 03-02-2025 End: 04-01-2025 take 1 tablet by mouth every twenty-four hours at mealtime metFORMIN XR (Glucophage-XR) 500 MG 24 hr tablet Indications: Encounter for weight management Take 1 tablet (500 mg) by mouth in the evening. Take with meals Do not crush, chew, or split. 30 tablet 11 03/02/2025 03/30/2025 Discontinued 24 hr minocycline 105 mg extended release oral tablet (4 sources) Tetracycline-class Drug Start: 08-09-2018 take 1 tablet by mouth once daily minocycline (SOLODYN) 105 mg Tb24 Take 105 mg by mouth daily. 30 tablet 2 08/09/2018 Active Start: 05-17-2018 take 1 tablet by nimesh th once daily, then take 1 tablet by mouth minocycline (SOLODYN) 105 mg Tb24 Take 105 mg by mouth daily. 30 tablet 2 05/17/2018 Active phentermine hydrochloride 37.5 mg oral tablet (2 sources) Sympathomimetic Amine Anorectic Start: 03-30-2025 End: 04-29-2025 take 1 tablet by mouth before mealtime phentermine (Adipex-P) 37.5 MG tablet Indications: Encounter for weight management Take 1 tablet (37.5 mg) by mouth in the morning. Take before meals. 30 tablet 03/30/2025 04/29/2025 Active Completed/Discontinued Medications Medication Drug Class(es) Dates Sig (Normalized) Sig (Original) aspirin 81 mg oral tablet (3 sources) Platelet Aggregation Inhibitor, Nonsteroidal Anti-inflammatory Drug End: 08-16-2024 take 81 mg by mouth once daily BABY ASPIRIN PO Take 81 mg by mouth Daily 08/16/2024 Discontinued (Other) citalopram 20 mg oral tablet (3 sources) Serotonin Reuptake Inhibitor Start: 07-06-2024 End: 07-06-2025 take 1 tablet by mouth once daily citalopram (CeleXA) 20 MG tablet Indications: mood disturbance Take 1 tablet (20 mg) by mouth Daily 30 tablet 11 07/06/2024 08/16/2024 Discontinued (Other) ferrous sulfate 325 mg oral tablet (1 source) End: 08-16-2024 take 1 tablet by mouth at mealtime ferrous sulfate 325 (65 Fe) MG tablet Take 325 mg by mouth in the morning. Take with meals. 08/16/2024 Discontinued (Other) ibuprofen 800 mg oral tablet (3 sources) Nonsteroidal Anti-inflammatory Drug Start: 06-28-2024 End: 08-16-2024 take 1 tablet by mouth every six hours as needed ibuprofen 800 MG tablet Take 800 mg by mouth every 6 (six) hours if needed 06/28/2024 08/16/2024 Discontinued (Other) Ecxkziyw-Qhf-Fm-F A ( 1 + IRON PO) (3 sources) End: 08-16-2024 Tdxudboz-Men-Sl-FA ( 1 + IRON PO) Take by mouth 08/16/2024 Discontinued (Other) Multivi t-Min-Fe-FA ( 1 + IRON PO) Take by mouth Active 2 ml rho(d) immune globulin, human 750 unt/ml prefilled syringe (1 source) Human Immunoglobulin G Start: 07-14-2020 End: 07-14-2020 rho(d) immune globulin (RHOPHYLAC) injection 300 mcg Problems Active Problems Problem Classification Problem Date Documented Date Episodic/Chronic Contraceptive and procreative management (9 sources) Patient encounter status; Translations: [Encounter for insertion of intrauterine contraceptive device] 08-16-2024 Episodic Hemorrhage during ; abruptio placenta; placenta previa (1 source) Threatened miscarriage; Translations: [Threatened ] Episodic Medical examination/evaluatio n (2 sources) Encounter for preprocedural cardiovascular examination; Translations: [Encounter for preprocedural cardiovascular examination] Onset: 06-14-2018 Episodic Other female genital disorders (4 sources) Abnormal uterine bleeding; Translations: [Abnormal uterine and vaginal bleeding, unspecified] 03-02-2025 Chronic Other skin disorders (3 sources) Acne vulgaris; Translations: [Acne vulgaris] Onset: 05-17-2018 Episodic Other skin disorders (2 sources) Hidradenitis suppurativa; Translations: [Hidradenitis suppurativa] 03-02-2025 Episodic Skin and subcutaneous tissue infections (3 sources) Carbuncle; Translations: [Carbuncle, unspecified] Onset: 05-17-2018 Episodic Substance-related disorders (6 sources) Smoker; Translations: [Nicotine dependence, unspecified, uncomplicated] Onset: 06-14-2018 06-14-2018 Chronic Superficial injury; contusion (1 source) Contusion of abdominal wall, initial encounter; Translations: [Contusion of abdominal wall, initial encounter] Onset: 07-05-2024 Episodic Unclassified (4 sources) Patient encounter status; Translations: [Preop cardiovascular exam] Onset: 06-14-2018 06-14-2018 Unclassified (1 source) Post-op Problem Onset: 07-05-2024 Unclassified (1 source) Post-Op Issue Onset: 07-05-2024 Past or Other Problems Problem Classification Problem Date Documented Da te Episodic/Chronic Other and delivery including normal (2 sources) care status; Translations: [Encounter for routine follow-up] 08-09-2024 Episodic Results Test Name Value Interpretation Reference Range Facility HCG ( test) Ql (U)o n 03-30-2025 Interpretation and review of laboratory results Normal [facility] Preg Test, Ur Negative Negative [facility] US PELVIS TRANSVAGINALon US PELVIS TRANSVAGINAL EXAM: Pelvic Ultrasound, Transvaginal: REASON FOR EXAM: IUD placement, heavy frequent periods. COMPARISON: None. TECHNIQUE: Longitudinal and transverse grayscale images with color Doppler of the pelvis obtained endovaginally. FINDINGS: The uterus is of normal size and echogenicity, anteverted/retroflexe d. The endometrium is hyperechoic and not thickened. [...] report is generated using voice recognition reporting ([employer]). On occasion, [employer] erroneously drops words from the report or replaces the spoken word with a similar sounding word. Please call with any questions/concerns regarding the report. Dictated and transcribed 03/30/2025/judith This report has been electronically signed and approved by the interpreting radiologist. Normal Not Available Comment on above: Order Comment: US PE LVIS TRANSVAGINAL Patient's last menstrual period was 02/27/2025 (approximate). 274 lb Urinalysis macro (dipstick) panel (U)on 03-30-2025 Bilirubin, UA Negative Negative - 4(70) +++ mg/dL [facility] Blood, UA Positive Negative - 50 Sunny/mcL [facility] Comment on above: small Clarity, UA Clear [facility] Color, UA Yellow [facility] Glucose, UA Negative Negative - 1999(110) ++++ mg/dL [facility] Interpretation and review of laboratory results Abnormal [facility] Ketones, UA Positive Negative - 160(16) ++++ mg/dL [facility] Comment on above: trace Leukocytes, UA Negative Negative - 500+++ Donis/mcL [facility] Nitrite, UA Negative Negative - Positive [facility] pH, UA 5.5 5 - 9 [facility] Protein, UA Negative Negative - 1999(20) ++++ mg/dL [facility] Spec Grav, UA 1.03 1 - 1.03 [facility] Urobilinogen, UA 1.0 0.2 - 12 mg/dL [facility] Urinalysis macro (dipstick) panel (U)on 03-02-2025 Bilirubin, UA Negative Negative - 4(70) +++ mg/dL [facility] Blood, UA Negative Negative - 50 Sunny/mcL [facility] Clarity, UA Clear [facility] Color, UA Yellow [facility] Glucose, UA Negative Negative - 2000(110) ++++ mg/dL [facility] Interpretation and review of laboratory results Normal [facility] Ketones, UA Positive Negative - 160(16) ++++ mg/dL [facility] Comment on above: trace Leukocytes, UA Negative Negative - 500+++ Donis/mcL [facility] Nitrite, UA Negative Negative - Positive [facility] pH, UA 5.5 5 - 9 [facility] Protein, UA Negative Negative - 1999(20) ++++ mg/dL [facility] Spec Grav, UA 1.025 1 - 1.03 [facility] Urobilinogen, UA 1.0 0.2 - 12 mg/dL [facility] HCG ( test) Ql (U)o n 08-24-2024 Interpretation and review of laboratory results Normal [facility] Preg Test, Ur Negative [facility] IUD Insertionon 08-16-2024 Shari Bertrand LPN 08/24/2024 12:25 PM IUD Insertion Date/Time: 08/16/2024 1:40 PM Performed by: Arvind Tejada DO Authorized by: Arvind Tejada DO Consent: Consent obtained: Written Consent given by: Patient Procedure risks and benefits discussed: yes Patient questions answered: yes Patient agrees, verbalizes understanding, and wants to proceed: yes Educational handouts given: yes Instructions and paperwork completed: yes [place] protocol: Patient states understanding of procedure being performed: yes Relevant documents present and verified: yes Test results available and properly labeled: yes Imaging studies available: yes Required blood products, implants, devices, and special equipment available: yes Procedure: Pelvic exam performed: yes Negative GC/chlamydia test: no Negative urine test: yes Negative serum test: no Cervix cleaned and prepped: yes Speculum placed in vagina: yes Tenaculum applied to cervix: yes Uterus sounded: yes IUD inserted with no complications: yes IUD type: Mirena Strings trimmed: yes Post-procedure: Patient tolerated procedure well: yes Patient will follow up after next period: no [facility] CBC AND AUTO DIFFon 07-05-20 24 ABSOLUTE BASOPHIL 0.0 X10E9/L Normal 0.0-0.2 [facility] Comment on above: Performed By: #### C BCA, CMP #### [facility] ([id number]) [address] [place] [address] 79824 ABSOLUTE NEUTROPHIL 5.8 X10E9/L Normal 1.5-6.6 [facility] Comment on above: Performed By: #### C BCA, CMP #### [facility] ([id number]) [address] [place] [address] 74808 Basophils/100 WBC (Bld) 0.3 % [facility] Comment on above: Performed By: #### C MANOJ, CMP #### [facility] ([id number]) [address] [place] [address] 29288 Eosinophils (Bld) [#/Vol] 0.1 10*3/uL Normal 0.0-0.4 [facility] Comment on above: Performed By: #### C MANOJ, CMP #### [facility] ([id number]) [address] [place] [address] 80170 Eosinophils/100 WBC (Bld) 1.1 % Normal [facility] Comment on above: Performed By: #### C MANOJ, CMP #### [facility] ([id number]) [address] [place] [address] 04304 Erythrocyte distribution width (RBC) [Ratio] 13.0 % Normal 11.5-15.0 [facility] Comment on above: Performed By: #### C MANOJ, CMP #### [facility] ([id number]) [address] [place] [address] 95431 Hematocrit (Bld) [Volume fraction] 25.9 % Low 35-47 [facility] Comment on above: Performed By: #### C BCA, CMP #### [facility] ([id number]) [address] [place] [address] 24976 Hemoglobin (Bld) [Mass/Vol] 9.0 g/dL Low 11.7-15.5 [facility] Comment on above: Performed By: #### C BCA, CMP #### [facility] ([id number]) [address] [place] [address] 18777 Lymphocytes (Bld) [#/Vol] 1.8 10*3/uL Normal 1.0-3.5 [facility] Comment on above: Performed By: #### C BCA, CMP #### [facility] ([id number]) [address] [place] [address] 94393 Lymphocytes/100 WBC (Bld) 21.5 % Normal [facility] Comment on above: Performed By: #### C MANOJ, CMP #### [facility] ([id number]) [address] [place] [address] 43707 MCH (RBC) [Entitic mass] 31.4 pg Normal 27-34 [facility] Comment on above: Performed By: #### C MANOJ, CMP #### [facility] ([id number]) [address] [place] [address] 61065 MCHC (RBC) [Mass/Vol] 34.7 g/dL Normal 32-36 [facility] Comment on above: Performed By: #### C MANOJ, CMP #### [facility] ([id number]) [address] [place] [address] 03487 MCV (RBC) [Entitic vol] 90 fL Normal 80-100 [facility] Comment on above: Performed By: #### C BCA, CMP #### [facility] ([id number]) [address] [place] [address] 42668 Monocytes (Bld) [#/Vol] 0.5 10*3/uL Normal 0-0.9 [facility] Comment on above: Performed By: #### C BCA, CMP #### [facility] ([id number]) [address] [place] [address] 86973 Monocytes/100 WBC (Bld) 6.5 % Normal [facility] Comment on above: Performed By: #### C BCA, CMP #### [facility] ([id number]) [address] [place] [address] 37587 Neutrophils/100 WBC (Bld) 70.6 % Normal [facility] Comment on above: Performed By: #### C BCA, CMP #### [facility] ([id number]) [address] [place] [address] 97746 Platelet mean volume (Bld) [Entitic vol] 8.9 fL Normal 7-12 [facility] Comment on above: Performed By: #### C BCA, CMP #### [facility] ([id number]) [address] [place] [address] 87865 Platelets (Bld) [#/Vol] 239 10*3/uL Normal 150-450 [facility] Comment on above: Performed By: #### C BCA, CMP #### [facility] ([id number]) [address] [place] [address] 22175 RBC COUNT 2.86 X10E12/L Low 3.80-5.20 [facility] Comment on above: Performed By: #### C BCA, CMP #### [facility] ([id number]) [address] [place] [address] 57591 WBC (Bld) [#/Vol] 8.3 10*3/uL Normal 4.0-11.0 [facility] Comment on above: Performed By: #### C BCA, CMP #### [facility] ([id number]) [address] [place] [address] 14872 COMPREHENSIVE METABOLIC PANE Lacho 07-05-2024 Albumin [Mass/Vol] 2.6 g/dL Low 3.2-5.3 [facility] Comment on above: Performed By: #### C BCA, CMP #### [facility] ([id number]) [address] [place] [address] 12262 ALP [Catalytic activity/Vol] 84 U/L Normal 39-130 [facility] Comment on above: Performed By: #### C BCA, CMP #### [facility] ([id number]) [address] [place] [address] 80809 ALT [Catalytic activity/Vol] 16 U/L Normal 0-31 [facility] Comment on above: Performed By: #### C BCA, CMP #### [facility] ([id number]) [address] [place] [address] 60139 Anion gap [Moles/Vol] 6 mmol/L Normal 5-15 [facility] Comment on above: Performed By: #### C BCA, CMP #### [facility] ([id number]) [address] [place] [address] 51130 AST [Catalytic activity/Vol] 14 U/L Normal 0-41 [facility] Comment on above: Performed By: #### C BCA, CMP #### [facility] ([id number]) [address] [place] [address] 79363 Bilirubin [Mass/Vol] 0.4 mg/dL Normal 0.3-1.2 [facility] Comment on above: Performed By: #### C BCA, CMP #### [facility] ([id number]) [address] [place] [address] 55706 Calcium [Mass/Vol] 7.8 mg/dL Low 8.5-10.5 [facility] Comment on above: Performed By: #### C BCA, CMP #### [facility] ([id number]) [address] [place] [address] 50912 Chloride [Moles/Vol] 110 mmol/L High 98-109 [facility] Comment on above: Performed By: #### C BCA, CMP #### [facility] ([id number]) [address] [place] [address] 06946 CO2 [Moles/Vol] 23 mmol/L Normal 22-32 [facility] Comment on above: Performed By: #### C BCA, CMP #### [facility] ([id number]) [address] [place] [address] 86605 Creatinine [Mass/Vol] 0.50 mg/dL Normal 0.40-1.00 [facility] Comment on above: Result Comment: METH OD TRACEABLE TO IDMS STANDARD Performed By: #### C MANOJ, CMP #### [facility] ([id number]) [address] [place] [address] 23731 eGFR (CKD-EPI) NON-RACE DEPENDENT >90 Normal >59 [facility] Comment on above: Result Comment: Reported eGFR is based on the CKD-EPI 2020 equation that does not use a race coefficient. Performed By: #### C MANOJ, CMP #### [facility] ([id number]) [address] [place] [address] 59123 Glucose [Mass/Vol] 93 mg/dL Normal 65-99 [facility] Comment on above: Performed By: #### C BCA, CMP #### [facility] ([id number]) [address] [place] [address] 16076 Potassium [Moles/Vol] 3.7 mmol/L Normal 3.5-5.0 [facility] Comment on above: Performed By: #### C BCA, CMP #### [facility] ([id number]) [address] [place] [address] 82856 Protein [Mass/Vol] 5.9 g/dL Low 6.0-8.0 [facility] Comment on above: Performed By: #### C BCA, CMP #### [facility] ([id number]) [address] [place] [address] 31405 Sodium [Moles/Vol] 139 mmol/L Normal 134-146 [facility] Comment on above: Performed By: #### C BCA, CMP #### [facility] ([id number]) [address] [place] [address] 78562 Urea nitrogen [Mass/Vol] 15 mg/dL Normal 5-23 [facility] Comment on above: Performed By: #### C BCA, CMP #### [facility] ([id number]) [address] [place] [address] 35683 Lacho 06-25-2024 L Specimen: [id number] Received: 06/27/24 Status: SOUT Req Num: [id number] Spec Type: Surgical Subm Dr: Radha Tomas MD Tissues: A Placenta - 3rd Trimester (Greater than 28 weeks) (PLACENTA) Procedures: HE/3, Gross/Micro L5 Age/ Patient Sex Location Account Attending Physician Sabrina Velasquez 34/F LABELL [id number] Radha Tomas MD SPEC NUM: [id number] RECD: 06/27/24 STATUS: SOUCnady REQ NUM: [id number] MELISSA: 06/25/[address]: Radha Tomas MD ENTERED: 06/27/[address] [facility] DR: Ashish,Digna SPEC TYPE: Surgical DEPT: SHREYA GUIDO ORDERED: [...] maternal surface has intact, lobulated cotyledons with ware-pink, spongiform parenchyma. No nodules or suspicious areas are present. The 14.9 x 14.1 x 2.1 cm placental disc, devoid of membranes and cord, has a trimmed weight -------- Specimen: [id number] Received: 06/27/24 Status: [place]eng Num: [id number] Spec Type: Surgical Subm Dr: Radha Tomas MD Tissues: A Placenta - 3rd Trimester (Greater than 28 weeks) (PLACENTA) Procedures: HE/3, Gross/Micro L5 -------- Patient: Sabrina Velasquez [id number] (Continued) -------- Specimen: [id number] Received: 06/27/24 (Continued) Gross Description (Continued) Signed (signature on file) Flavia Nicholson MD 06/30/24 1712 -------- Specimen: [id number] Received: 06/27/24 Status: WILBER Boateng Num: [id number] Spec Type: Surgical Subm Dr: Radha Tomas MD Tissues: A Placenta - 3rd Trimester (Greater than 28 weeks) (PLACENTA) Procedures: /3, Gross/Micro L5 -------- Patient: Sabrina Velasquez [id number] (Continued) -------- Specimen: [id number] Received: 06/27/24 (Continued) Gross Description (Continued) of 322 grams. Summary of sections: A1: umbilical cord at end and membrane roll including possible site of rupture A2: umbilical cord at placental end and parenchyma adjacent to cord insertion site A3: random mid-zonal section CPT Codes 74025 -------- -------- Specimen: [id number] Received: 06/27/24 Status: WILBER Kilo Num: [id number] Spec Type: Surgical Subm Dr: Radha Tomas MD Tissues: A Placenta - 3rd Trimester (Greater than 28 weeks) (PLACENTA) Procedures: Kalia GLYNN/Mihir L5 -------- Patient: Sabrina Velasquez [id number] (Continued) -------- Signed (signature on file) Flavia Nicholson MD 06/30/24 4075 Normal [facility] ABORH VERIFICATIONon 020 ABO and Rh group Nom (Bld) A Negative [facility] ABO and Rh group Nom (Bld) ABO/Rh Verification [facility] BMPon 07-14-2020 Anion gap [Moles/Vol] 6 mmol/L Low 10 - 20 mmol/L [facility] Calcium [Mass/Vol] 9.0 mg/dL 8.4 - 10. 2 mg/dL [facility] Chloride [Moles/Vol] 113 mmol/L High 98 - 108 mmol/L [facility] Creatinine [Mass/Vol] 0.64 mg/dL 0.40 - 1.10 [facility] GFR/1.73 sq M predicted among non-blacks MDRD (S/P/Bld) [Vol rate/Area] The eGFR should be used for monitoring renal function only and not for medication dosing. [facility] GFR/1.73 sq M.predicted CKD-EPI (S/P/Bld) [Vol rate/Area] 122 >=60 mL/min/1.73 m2 [facility] Glucose [Mass/Vol] 71 mg/dL 65 - 99 mg/dL [facility] HCO3 [Moles/Vol] 28 mmol/L 21 - 32 mmol/L [facility] Potassium [Moles/Vol] 3.9 mmol/L 3.5 - 5.1 mmol/L [facility] Sodium [Moles/Vol] 143 mmol/L 135 - 145 mmol/L [facility] Urea nitrogen [Mass/Vol] 8 mg/dL 8 - 25 mg/dL [facility] Urea nitrogen/Creatinine [Mass ratio] 12.5 mg/mg [facility] CBC WITH AUTO DIFFERENTIALon 07-14-2020 Basophils (Bld) [#/Vol] 0.03 10*3/uL [facility] Basophils/100 WBC (Bld) 0.4 % [facility] Eosinophils (Bld) [#/Vol] 0.10 10*3/uL [facility] Eosinophils/100 WBC (Bld) 1.5 % [facility] Erythrocyte distribution width (RBC) [Entitic vol] 12.3 % 11.6 - 14.8 % [facility] Hematocrit (Bld) [Volume fraction] 39.2 % 36 - 46 % [facility] Hemoglobin (Bld) [Mass/Vol] 13.6 g/dL 12 - 16 g/dL [facility] Immature granulocytes (Bld) [#/Vol] 0.02 10*3/uL [facility] Immature granulocytes/100 WBC (Bld) 0.30 % [facility] Comment on above: The IG parameter is the percentage of metamyelocytes, myelocytes and promyelocytes. An immature granulocyte count (IG) of 1% or more suggests the possibility of infection, an IG count of 3% is very likely related to an infection. Lymphocytes (Bld) [#/Vol] 1.95 10*3/uL [facility] Lymphocytes/100 WBC (Bld) 29.2 % [facility] MCH (RBC) [Entitic mass] 30.4 pg 26 - 34 pg [facility] MCHC (RBC) [Mass/Vol] 34.7 g/dL 31 - 37 g/dL [facility] MCV (RBC) [Entitic vol] 87.7 fL 80 - 100 fL [facility] Monocytes (Bld) [#/Vol] 0.48 10*3/uL [facility] Monocytes/100 WBC (Bld) 7.2 % [facility] Neutrophils (Bld) [#/Vol] 4.09 10*3/uL [facility] Neutrophils/100 WBC (Bld) 61.4 % [facility] Nucleated RBC (Bld) [#/Vol] 0.00 10*3/uL [facility] Nucleated RBC/100 WBC (Bld) [Ratio] 0.0 % [facility] Platelet mean volume (Bld) [Entitic vol] 11.8 fL 9.4 - 12.4 fL [facility] Platelets (Bld) [#/Vol] 151 10*3/uL [facility] RBC (Bld) [#/Vol] 4.47 10*6/uL [facility] ealt WBC (Bld) [#/Vol] 6.67 10*3/uL [facility] ealth Otheron 07-14-2020 Extra Tube Hold for add-ons. [facility] Comment on above: Auto resulted. Interpretation and review of laboratory results Abnormal [facility] Type and Screenon 07-14-2020 ABO and Rh group Nom (Bld) A Negative [facility] Blood group antibody screen Ql Negative [facility] Specimen Expires 07/17/2020 23:59 EST [facility] URINALYSISon 07-14-2020 Bacteria Auto Ql (U) None Seen None Seen /hpf [facility] Bilirubin Ql (U) Negative Negative [facility] Clarity Refractometry automated (U) Clear Clear [facility] Color (U) Yellow Colorless, Yellow [facility] Epithelial cells.squamous Auto (Urine sed) [#/Area] 5 High [facility] Glucose Auto test strip (U) [Mass/Vol] Negative Negative mg/dL [facility] Hemoglobin Auto test strip Ql (U) Moderate Abnormal Negative [facility] Interpretation and review of laboratory results Abnormal [facility] Ketones (U) [Mass/Vol] Negative Negative mg/dL [facility] Leukocyte esterase Auto test strip Ql (U) Trace Abnormal Negative [facility] Mucus Auto (Urine sed) [#/Area] Rare None Seen, Rare /lpf [facility] Nitrite Auto test strip Ql (U) Negative Negative [facility] pH (U) 7.0 [pH] [facility] Protein (U) [Mass/Vol] Negative Negative mg/dL [facility] RBC Auto (Urine sed) [#/Area] 2 [facility] Specific gravity (U) [Rel density] 1.011 [facility] Urobilinogen (U) [Mass/Vol] <2.0 <2.0 mg/dL [facility] WBC Auto (Urine sed) [#/Area] 2 [facility] Microscopic examination is performed on all urinalysis samples and only positive findings are reported. The test for blood on the chemical analytic portion of urinalysis may also be positive due to hemoglobinuria and myoglobinuria and if red blood cells are present they are quantified by microscopic examination. [facility] OB 1ST TRIMESTER WITH TRA [...] bleeding, spontaneous of is believed most likely. Txt4 Workstation ID: [id number] Dictated by: SHAY FERNANDEZ on [facility] Jul 14, 2020 12:00:51 PM EDT Transcribed by: PREETI VILLALTA on [facility] Jul 14, 2020 12:07:08 PM EDT Finalized by: SHAY FERNANDEZ on [facility] Jul 14, 2020 12:57:25 PM EDT [facility] Comment on above: Order Comment: Injur [...] limits. No free peritoneal fluid is seen. [facility] 1. Normal study. 2. With a positive beta hCG, this is a of unknown location. Clinical correlation including serial beta hCG levels is needed differentiate the possibilities which include extremely early , spontaneous of recent , or ectopic gestation which is not directly visualized. With a history of bleeding, spontaneous of is believed most likely. Txt4 Workstation ID: [id number] [facility] Interface, Rad In Etelvina Edwardq - 07/14/2020 [...] bleeding, spontaneous of is believed most likely. Txt4 Workstation ID: [id number] [facility] VAGINITIS DNA PROBESon 07-14 Olga sp DNA Probe+sig amp Ql (Vag fld) Negative Negative [facility] G. vaginalis DNA Probe+sig amp Ql (Vag fld) Negative Negative [facility] Interpretation and review of laboratory results Normal [facility] T. vaginalis DNA Probe+sig amp Ql (Vag fld) Negative Negative [facility] hCG, Blood, QUANTitativeon 0 07-14-2020 Beta HCG ( test) Ql (U) Males and non females: <5 mIU/mL Females during : 3-4 weeks 9-130 mIU/mL 4-5 weeks 75-2600 mIU/mL 5-6 weeks 850-20,800 mIU/mL 6-7 weeks 4000-100,200 mIU/mL 7-12 weeks 11,500-289,000 mIU/mL 12-16 weeks 18,300-137,000 mIU/mL 16-29 weeks 1,400-53,000 mIU/mL 29-41 weeks 940-60,000 mIU/mL [facility] HCG Qn 438 m[IU]/mL High [facility] Basic Metabolic Panelon 04-0 Anion gap [Moles/Vol] 7.0 mmol/L Normal 6.0-18.0 [facility] Comment on above: Performed By: #### 2 4321-2, 37473-3, 45154-0r3, 1988-03 ####[facility] [address], [place] Calcium [Mass/Vol] 8.6 mg/dL Low 8.9-10.3 [facility] Comment on above: Performed By: #### 2 4321-2, 95585-5, 27019-4k5, 1988-03 ####[facility] [address], [place] Chloride [Moles/Vol] 107 mmol/L Normal 98-107 [facility] Comment on above: Performed By: #### 2 4321-2, 93250-7, 26223-7q8, 1988-03 ####[facility] [address], [place] CO2 [Moles/Vol] 24 mmol/L Normal 22-32 [facility] Comment on above: Performed By: #### 2 4321-2, 41050-6, 14540-6u5, 1988-03 ####[facility] [address], [place] Creatinine [Mass/Vol] 0.67 mg/dL Normal 0.60-1.30 [facility] Comment on above: Performed By: #### 2 4321-2, 26828-0, 32275-5f5, 1988-03 ####[facility] [address], [place] Glucose [Mass/Vol] 105 mg/dL High 70-99 [facility] Comment on above: Result Comment: U pdated ADA Reference Range A normal fasting glucose concentration is less than 100 mg/dL. An impaired fasting glucose concentration is 100-125 mg/dL. A provisional diagnosis of diabetes mellitus can be made when a fasting glucose concentration is greater than 125 mg/dL. Performed By: #### 2 4321-2, 14440-6, 18258-0k8, 1988-03 ####[facility] [address], [place] Potassium [Moles/Vol] 4.1 mmol/L Normal 3.6-5.1 [facility] Comment on above: Performed By: #### 2 4321-2, 30812-1, 19106-1q2, 1988-03 ####[facility] [address], [place] Sodium [Moles/Vol] 138 mmol/L Normal 136-145 [facility] Comment on above: Performed By: #### 2 4321-2, 43277-4, 01475-4t5, 1988-03 ####[facility] [address], [place] Urea nitrogen (BldV) [Mass/Vol] 8 mg/dL Normal 8-20 [facility] Comment on above: Performed By: #### 2 4321-2, 88153-5, 85221-9z3, 1988-03 ####[facility] [address], [place] C-Reactive Proteinon 019 CRP [Mass/Vol] 3.2 mg/dL High <1.0 [facility] Comment on above: Performed By: #### 2 4321-2, 12642-5, 92254-3p8, 1988-03 ####[facility] [address], [place] CBCon 03-01-2019 Erythrocyte distribution width (RBC) [Entitic vol] 14.3 % Normal 11.0-14.8 [facility] Comment on above: Performed By: #### 2 4317-0 ####[facility] [address], [place] Hematocrit (Bld) [Volume fraction] 37.5 % Normal 35.0-45.0 [facility] Comment on above: Performed By: #### 2 4317-0 ####[facility] [address], [place] Hemoglobin (Bld) [Mass/Vol] 12.5 g/dL Normal 12.0-16.0 [facility] Comment on above: Performed By: #### 2 7-0 ####[address] [address] [place], [place] MCH (RBC) [Entitic mass] 28.1 Picograms Normal 27.0-34.0 [facility] Comment on above: Performed By: #### 2 7-0 ####[address] [place] MCHC (RBC) [Mass/Vol] 33.3 g/dL Normal 32.0-36.0 [facility] Comment on above: Performed By: #### 2 7-0 ####[address] [place] MCV (RBC) [Entitic vol] 84.6 fL Normal 80.0-97.0 [facility] Comment on above: Performed By: #### 2 7-0 ####[facility] [address] [place] Platelet mean volume (Bld) [Entitic vol] 10.5 fL Normal 6.2-12.1 [facility] Comment on above: Performed By: #### 2 7-0 ####[facility] Platelets (Bld) [#/Vol] 231 thou/mcL Normal 142-424 [facility] Comment on above: Performed By: #### 2 7-0 ####[address] RBC (Bld) [#/Vol] 4.43 million/mcL Normal 3.80-5.10 [facility] Comment on above: Performed By: #### 2 7-0 ####[facility] [address] [place] WBC (Bld) [#/Vol] 12.7 thou/mcL High 4.6-10.2 [facility] Comment on above: Performed By: #### 2 7-0 ####[facility] GFRaaon 04-02-2019 GFR/1.73 sq M predicted among blacks MDRD (S/P/Bld) [Vol rate/Area] mL/min/{1.73_m2} Normal [facility] Comment on above: Result Comment: The MDRD equation has not been validated for those over 70 years, women, patients with serious co-morbid conditions, or with extremes of body size, muscle mass of nutritional status. Performed By: #### 2 4321-2, 78242-5, 80068-7p0, 1988-03 ####[facility] [address], [place] GFRbbon 03-01-2019 GFR/1.73 sq M predicted among non-blacks MDRD (S/P/Bld) [Vol rate/Area] mL/min/{1.73_m2} Normal [facility] Comment on above: Performed By: #### 2 4321-2, 49748-3, 32632-3s7, 1988-03 ####[facility] [address], [place] Glucose POCT (Uploaded)on Glucose [Mass/Vol] 87 mg/dL Normal 70-99 [facility] Comment on above: Result Comment: Nadia tment ranges and critical values established by Patient Care Services. All follow-up actions were taken by Patient Care Services. Performed By: #### 2 430-8 ####[facility] Glucose [Mass/Vol] 93 mg/dL Normal 70-99 [facility] Comment on above: Result Comment: Nadia tment ranges and critical values established by Patient Care Services. All follow-up actions were taken by Patient Care Services. Performed By: #### 2 430-8 ####[facility] Glucose [Mass/Vol] 95 mg/dL Normal 70-99 [facility] Comment on above: Result Comment: Nadia tment ranges and critical values established by Patient Care Services. All follow-up actions were taken by Patient Care Services. Performed By: #### 2 430-8 ####[facility] Glucose [Mass/Vol] 123 mg/dL High 70-99 [facility] Comment on above: Result Comment: Nadia tment ranges and critical values established by Patient Care Services. All follow-up actions were taken by Patient Care Services. Performed By: #### 2 430-8 ####[facility] PACU I Nursingon 03-01-2019 PACU I Nursing [facility] PACU I Jerri robledo Record Summary Primary Physician: Marcellus Driscoll MD Finalized Date/Time: 03/01/19 07:03:14 Pt. Name: EVAFRANCISCOPAULINE Garcia/Sex: 1990 Female Med Rec #: [id number] Physician: Marcellus Driscoll MD Financial #: [id number] Pt. Type: I Room/Bed: [address] [place] [address] Admit/Disch: 02/28/19 08:18:00 - Institution: CO W OR Main PACU I Case Times Entry [...] 15:45 Sherrie Rendon RN 03/01/19 07:03 Normal [facility] Patient Summaryon 03-01-2019 Patient Summary PATIENT DISCHARGE INSTRUCTIONS If you are having an emergency and are not able to reach your physician, CALL 911 or go to the nearest emergency room and take this document with you. [facility] 03/01/19 18:42 [address] [place]. [address] PATIENT INFORMATION Name: VELASQUEZABSABRINA E Address: [address] [place] [id number] Age: 29 Years Phone: [phone] : 1990 12:00 MRN: [id number] Sex: Female Race: White Ethnicity: Declined Admitted From: Clinic or [facility] Medical Service: Surgery Nurse Unit/Bed: ([place]) [facility] 7T74-75 Admit Date: 02/28/2019 08:18 PCP: Omid Killian MD PHYSICIANS INVOLVED WITH CARE ------ Attending Physicians: Marcellus Driscoll MD - Surgery Admitting Physician: Marcellus Driscoll MD - Surgery Primary Care Physician:Omid Killian MD, - Consults: None found FOLLOW-UP APPOINTMENTS: Provider: Specialty: Address: Date: Marcellus Driscoll MD Surgery [address] [place] [address] [place] [address] (1) 03/08/19 01:45 pm Comment: Please follow-up at your pre-scheduled appointment. Provider: Specialty: Address: Date: Omid Killian MD [address] [address] (1) Follow-up as needed Provider: Specialty: Address: Date: Post-Op Nutrition Class [address] [address] 03/22/19 Comment: Please call [phone] for more information or to re-schedule. ALLERGIES: [...] doses are changed, or new medications (including icyb-iuq-mlvzohn products) are added. Ask your doctor if [...] Follow recommendations from your surgeon and dry cleaning manager regarding you diet. Refer to nutrition information [...] doctor before taking any supplements, herbal or rdow-aho-jqbtjjh medications. Call your physician if any questions [...] suicide hotline, anytime day or night, at 7-981-799-QTEF. Important information about accessing your health information through the [facility] [employer] patient portal If you initiated the self-registration process for [employer] during your stay, please check your personal email for an invitation to enroll in [employer] and complete the steps outlined in the email. If you would prefer to enroll while in the hospital, ask a member of your care team. We would be happy to assist you. If you have already enrolled in [employer], go to [email or web address] hospitalIPS Game Farmersmem[facility] [email or web address] to login and access your health information. Thank you for choosing [facility]. PATIENT EDUCATION Gastric Bypass Surgery, Care After [...] caffeine can cause dehydration. ?? A dry cleaning manager may also give you specific instructions. ?? [...] 06/30/2005 Document Revised: 12/07/2015 Document Reviewed: 04/08/2011 [employer] Interactive Patient Education ??2016 [employer] Gastric Bypass Discharge Instructions 1. Follow-up [...] dietitian for post-operative class at 2 weeks [phone] ? Call Bariatric Nurse Navigator [phone] with any further questions or concerns Call 311 if you have difficulty breathing or chest [...] provided above is for informational purposes only. [facility] does not promote, condone or endorse all the values expressed herein. The values or opinions they express with regard to the use of artificial contraception are not consistent with the teachings of the Orthodox Roman Catholic and the Ethical and Tenriism Directives for Orthodox Health Care Services. If any of these instructions are different from what your doctor tells you, follow your doctor's orders. If you smoke, you should quit. For more information, talk with your doctor or call [phone]-NOW ( ). PATIENT DISCHARGE INSTRUCTION Signature Page for: SABRINA VELASQUEZ Date/Time: 03/01/2019 18:42:02 A Clinician has explained the information on my discharge instructions and has provided me with a copy. My questions have been answered to my satisfaction. Patient Signature Date/Time Responsible Party Date/Time Relationship to Patient Clinician Signature Date/Time Normal [facility] Glucose POCT (Uploaded)on Glucose [Mass/Vol] 140 mg/dL High [address] [place] [address] Comment on above: Result Comment: Nadia tment ranges and critical values established by Patient Care Services. All follow-up actions were taken by Patient Care Services. Performed By: #### 2 430-8 ####[facility] Glucose [Mass/Vol] 127 mg/dL High [address] [place] [address] Comment on above: Result Comment: Nadia tment ranges and critical values established by Patient Care Services. All follow-up actions were taken by Patient Care Services. Performed By: #### 2 430-8 ####[facility] Glucose [Mass/Vol] 141 mg/dL High [address] Comment on above: Result Comment: Nadia tment ranges and critical values established by Patient Care Services. All follow-up actions were taken by Patient Care Services. Performed By: #### 2 430-8 ####[facility] Glucose [Mass/Vol] 164 mg/dL High [address] [place] [address] Comment on above: Result Comment: Nadia tment ranges and critical values established by Patient Care Services. All follow-up actions were taken by Patient Care Services. Performed By: #### 2 430-8 ####[facility] OR Nursingon 02-28-2019 OR Nursing [facility] OR Nursing Record Summary Primary Physician: Marcellus Driscoll MD Finalized Date/Time: 02/28/19 14:10:30 Pt. Name: EVAABSABRINAFELIBERTO Garcia/Sex: 1990 Female Med Rec #: [id number] Physician: Marcellus Driscoll MD Financial #: [id number] Pt. Type: I Room/Bed: / Admit/Disch: 02/28/19 [...] Entry 3 Case Attendee Marcellus Driscoll MD [facility] , Jacob Dorado CRNA , Kenny Smallwood Role Performed Primary Surgeon Anesthesiologist Nurse Tugboat Engineer Time In 02/28/19 11:17:00 02/28/19 11:17:00 02/28/19 [...] Guaman RN , Litzy Garcia Role Performed brass wind instrument maker RN First Scrub Time In 02/28/19 11:17:00 02/28/19 11:17:00 02/28/19 11:17:00 Time Out 02/28/19 14:05:00 02/28/19 14:05:00 02/28/19 14:05:00 Procedure Bypass Gastric Bypass Gastric Bypass Gastric Robot(N/A) Robot(N/A) Robot(N/A) Attendee Comment LUNCH 7410-0069 LUNCH 9575-1233 lunch [id number] Relief Reason Last Modified By: Abner MARTIN , Disha Levine RN , Disha Levine RN , Disha Aiken 02/28/19 14:09:25 02/28/19 14:09:25 02/28/19 14:09:25 Entry 7 Entry 8 Entry 9 Case Attendee Roman Catholic RN , Gissell Swenson, Swetha Juarez Case, Attendee Other Role Performed brass wind instrument maker First Scrub Paper Products Inspector Time In 02/28/19 11:48:00 02/28/19 11:57:00 02/28/19 11:17:00 Time Out 02/28/19 12:40:00 02/28/19 12:53:00 02/28/19 14:05:00 Procedure Bypass Gastric Bypass Gastric Bypass Gastric Robot(N/A) Robot(N/A) Robot(N/A) Attendee Comment MIRANDA, [place] - INTUITIVE Relief Reason Last Modified By: Abner MARTIN , Disha Levine RN , Disha Levine RN , Disha Aiken 02/28/19 14:09:25 02/28/19 14:09:25 02/28/19 14:09:25 CO [facility] OR General Case Sba Underwriter 1 OR CO W 11 ASA Class [...] Arrival? No 16FR TEMP SEN W/URINE METER [id number] Inserted By Oly Guaman RN, DC'd at End of Case? No Last [...] Settings Type Monopolar Unit ID Number davinci tow Grounding Pad Thigh right lateral Applied By Rowena MARTIN [facility] Last Modified By: Disha Levine RN 02/28/19 [...] OR Temperature Regulation Entry 1 Unit ID [id number] Site UPPER BODY Last Modified By: Gissell [...] By: Disha Levine RN 02/28/19 14:10 Normal [facility] PreOp Nursingon 02-28-2019 PreOp Nursing [facility] PreOp Nursing Record Summary Primary Physician: Marcellus Driscoll MD Finalized Date/Time: 02/28/19 12:08:12 Pt. Name: SABRINA VELASQUEZ/Sex: 1990 Female Med Rec #: [id number] Physician: Marcellus Driscoll MD Financial #: [id number] Pt. Type: I Room/Bed: / Admit/Disch: 02/28/19 [...] By: Gissell Joshi RN 02/28/19 12:08 Normal [facility] CBC with Differentialon 01-29 Basophils (Bld) [#/Vol] 0.00 thou/mcL Normal 0.00-0.20 [facility] Comment on above: Performed By: #### 5 7021-8 #### [facility] [address], [place] Basophils/100 WBC (Bld) 0.4 % Normal 0.0-2.0 [facility] Comment on above: Performed By: #### 5 7021-8 #### [facility] [address] [place], [place] Eosinophils (Bld) [#/Vol] 0.10 thou/mcL Normal 0.00-0.70 [facility] Comment on above: Performed By: #### 5 7021-8 #### [address] [place], [place] Eosinophils/100 WBC (Bld) 1.5 % Normal 0.0-7.0 [facility] Comment on above: Performed By: #### 5 7021-8 #### [address] [place], [place] Erythrocyte distribution width (RBC) [Entitic vol] 14.8 % Normal 11.0-14.8 [facility] Comment on above: Performed By: #### 5 7021-8 #### [address] [place], [place] Hematocrit (Bld) [Volume fraction] 41.4 % Normal 35.0-45.0 [facility] Comment on above: Performed By: #### 5 7021-8 #### [facility] [address] [place], [place] Hemoglobin (Bld) [Mass/Vol] 13.7 g/dL Normal 12.0-16.0 [facility] Comment on above: Performed By: #### 5 7021-8 #### [facility] [address] [place], [place] Lymphocytes (Bld) [#/Vol] 1.80 thou/mcL Normal 1.00-4.80 [facility] Comment on above: Performed By: #### 5 7021-8 #### [facility] [address] [place], [place] Lymphocytes/100 WBC (Bld) 21.5 % Low 22.0-44.0 [facility] Comment on above: Performed By: #### 7021-8 #### [facility] [address] [place], [place] MCH (RBC) [Entitic mass] 28.6 Picograms Normal 27.0-34.0 [facility] Comment on above: Performed By: #### 7021-8 #### [facility] [address] [place] MCHC (RBC) [Mass/Vol] 33.2 g/dL Normal 32.0-36.0 [facility] Comment on above: Performed By: #### 5 7021-8 #### [address] [place], [place] MCV (RBC) [Entitic vol] 86.0 fL Normal 80.0-97.0 [facility] Comment on above: Performed By: #### 5 7021-8 #### [address] [place], [place] Monocytes (Bld) [#/Vol] 0.60 thou/mcL Normal 0.00-0.90 [facility] Comment on above: Performed By: #### 5 7021-8 #### [address] [place], [place] Monocytes/100 WBC (Bld) 7.5 % Normal 0.0-12.0 [facility] Comment on above: Performed By: #### 5 7021-8 #### [address] [place], [place] Neutrophils (Bld) [#/Vol] 5.90 thou/mcL Normal 1.80-7.70 [facility] Comment on above: Performed By: #### 5 7021-8 #### [address] [place], [place] Neutrophils/100 WBC (Bld) 69.1 % Normal 40.0-70.0 [facility] Comment on above: Performed By: #### 5 7021-8 #### [facility] [address], [place] Platelet mean volume (Bld) [Entitic vol] 11.3 fL Normal 6.2-12.1 [facility] Comment on above: Performed By: #### 5 7021-8 #### [facility] [address] [place] Platelets (Bld) [#/Vol] 194 thou/mcL Normal 142-424 [facility] Comment on above: Performed By: #### 5 7021-8 #### [facility] [address] [place] RBC (Bld) [#/Vol] 4.81 million/mcL Normal 3.80-5.10 [facility] Comment on above: Performed By: #### 5 7021-8 #### [facility] [address] [place] WBC (Bld) [#/Vol] 8.5 thou/mcL Normal 4.6-10.2 [facility] Comment on above: Performed By: #### 5 7021-8 #### [facility] [address] [place] Comprehensive Metabolic Pane lacho 2019 Albumin [Mass/Vol] 3.3 g/dL Low 3.5-4.8 [facility] Comment on above: Performed By: #### 2 4323-8, 61791-5a8, 82125-2 ####[facility] [address], [place] ALP [Catalytic activity/Vol] 72 Units/L Normal 32-91 [facility] Comment on above: Performed By: #### 2 4323-8, 66243-9j3, 07161-9 ####[facility] [address] [place] ALT [Catalytic activity/Vol] 18 Units/L Normal 14-63 [facility] Comment on above: Performed By: #### 2 4323-8, 39797-4y3, 97263-8 ####[facility] [address] [place] Anion gap [Moles/Vol] 10.0 mmol/L Normal 6.0-18.0 [facility] Comment on above: Performed By: #### 2 4323-8, 94271-5x8, 89671-7 ####[facility] [address] [place] AST [Catalytic activity/Vol] 17 Units/L Normal 15-41 [facility] Comment on above: Performed By: #### 2 4323-8, 19684-0t1, 04659-7 ####[facility] [address] [place] Bilirubin [Mass/Vol] 0.7 mg/dL Normal 0.3-1.2 [facility] Comment on above: Performed By: #### 2 4323-8, 74375-5o9, 23589-2 ####[facility] [address] [place] Calcium [Mass/Vol] 8.5 mg/dL Low 8.9-10.3 [facility] Comment on above: Performed By: #### 2 4323-8, 18932-7p7, 23266-3 ####[facility] [address] [place] Chloride [Moles/Vol] 104 mmol/L Normal 98-107 [facility] Comment on above: Performed By: #### 2 4323-8, 40591-4l4, 27761-3 ####[facility] [address] [place] CO2 [Moles/Vol] 22 mmol/L Normal 22-32 [facility] Comment on above: Performed By: #### 2 4323-8, 77112-8o4, 77421-1 ####[facility] [address], [place] Creatinine [Mass/Vol] 0.79 mg/dL Normal 0.60-1.30 [facility] Comment on above: Performed By: #### 2 4323-8, 50712-9z3, 90478-1 ####[facility] [address] [place] Glucose [Mass/Vol] 93 mg/dL Normal 70-99 [facility] Comment on above: Result Comment: U pdated ADA Reference Range A normal fasting glucose concentration is less than 100 mg/dL. An impaired fasting glucose concentration is 100-125 mg/dL. A provisional diagnosis of diabetes mellitus can be made when a fasting glucose concentration is greater than 125 mg/dL. Performed By: #### 2 4323-8, 75171-8f3, 62089-4 ####[address] [place], [place] Potassium [Moles/Vol] 4.1 mmol/L Normal 3.6-5.1 [facility] Comment on above: Performed By: #### 2 4323-8, 84418-6u7, 77427-5 ####[address] Protein [Mass/Vol] 6.0 g/dL Low 6.1-7.9 [facility] Comment on above: Performed By: #### 2 4323-8, 35677-9f4, 66718-4 ####[address] Sodium [Moles/Vol] 136 mmol/L Normal 136-145 [facility] Comment on above: Performed By: #### 2 4323-8, 61096-9p6, 83789-3 ####[place] [address], [place] Urea nitrogen (BldV) [Mass/Vol] 13 mg/dL Normal 8-20 [facility] Comment on above: Performed By: #### 2 4323-8, 51569-5b4, 85808-8 ####[address] GFRaaon 2019 GFR/1.73 sq M predicted among blacks MDRD (S/P/Bld) [Vol rate/Area] mL/min/{1.73_m2} Normal [facility] Comment on above: Result Comment: The MDRD equation has not been validated for those over 70 years, women, patients with serious co-morbid conditions, or with extremes of body size, muscle mass of nutritional status. Performed By: #### 2 4323-8, 97467-7b9, 25558-3 ####[facility] [address], [place] GFRbbon 2019 GFR/1.73 sq M predicted among non-blacks MDRD (S/P/Bld) [Vol rate/Area] mL/min/{1.73_m2} Normal [facility] Comment on above: Performed By: #### 2 4323-8, 52210-4m3, 45144-9 ####[facility] [address], [place] Glycohemoglobin (HGB A1C) Emanuel guardado 2019 HbA1c (Bld) [Mass fraction] 5.0 % tl hgb Normal <5.6 [facility] Comment on above: Result Comment: U pdated ADA Reference Range HbA1c values of 5.7-6.4 percent indicate an increased risk for developing diabetes mellitus. HbA1c values greater than or equal to 6.5 percent are diagnostic of diabetes mellitus. For diagnosis of diabetes in individuals without unequivocal hyperglycemia, results should be confirmed by repeat testing. Performed By: #### 4 549-2 ####[facility], [address] [place] [address]. Partial Thromboplastin Time (aPTT)on 2019 aPTT Coag (PPP) [Time] 29.6 Sec Normal 23.6-35.3 [facility] Comment on above: Performed By: #### 3 173-2, 5902-2 ####[facility], [address] [place] [address]. Prothrombin Timeon 9 INR Coag (Bld) [Relative time] 1.00 {INR} Normal [facility] Comment on above: Result Comment: The recommended therapeutic INR range for most cardiac indications is 2.0-3.0. For high intensity therapy(ie.mechanical heart valves), the recommended range is 2.5-3.5. Performed By: #### 3 173-2, 5902-2 ####[facility], [address] [place] [address]. PT Coag (PPP) [Time] 11.5 Sec Normal 9.3-12.4 [facility] Comment on above: Performed By: #### 3 173-2, 5902-2 ####[facility], [address] [place] [address]. XR Chest 2 Viewson 9 XR Chest 2 views Two-view chest exam Indication: pre-op. Cough for the past week. COMPARISON: E 66.01 FINDINGS: The lungs are clear and the costophrenic angles are sharp. The cardiomediastinal silhouette and bones are normal. IMPRESSION: Normal chest. [place] thanks you for the opportunity to care for your patient. Workstation ID: [id number] FINAL REPORT Dictated By: Jean Hull MD 2019 08:47 Assigned Physician: Jean Hull MD Reviewed and Electronically Signed By: Jean Hull MD 2019 08:48 Transcribed by: GREGORY 2019 08:47 Technologist: SHAKA Carranza [facility] OR Nursingon 09-17-2018 OR Nursing CO ESTHE[facility] Endo OR Nursing Record Summary Primary Physician: Tristan Tate MD Finalized Date/Time: 09/17/18 07:39:53 Pt. Name: SABRINA VELASQUEZ/Sex: 1990 Female Med Rec #: [id number] Physician: Financial #: [id number] Pt. Type: I Room/Bed: / Admit/Disch: 09/16/18 13:46:00 - 09/16/18 15:20:00 Institution: [facility] Case Times Entry 1 Patient Times Patient In Room 09/16/18 14:20:00 Patient Out Room 09/16/18 14:30:00 Anesthesia Times Anes Start 09/16/18 14:18:00 Anes Stop 09/16/18 14:33:00 Surgical Times Start Time 09/16/18 14:26:00 Stop Time 09/16/18 14:28:00 Last Modified By: Julieta MARTIN , Sherrie Mota 09/17/18 07:37:51 General Comments: ANESTHESIA TIME START AND STOP ADDED PER ANESTHESIA PAPER RECORD DLEAGUE RN CO W Endo Case Attendees Entry 1 Entry 2 Entry 3 Case Attendee Keli URBINA , Tristan Delvalle FISHER SCALLOP , Charbel Wolf DO Role Performed Primary Surgeon Nurse Tugboat Engineer Anesthesiologist Time In 09/16/18 14:20:00 09/16/18 14:20:00 09/16/18 14:20:00 Time Out 09/16/18 14:30:00 09/16/18 14:30:00 09/16/18 14:30:00 Procedure Egd_(N/A) Egd_(N/A) Egd_(N/A) Attendee Comment Relief Reason Last Modified By: Breanna RN , Afia Carlos RN , Afia Carlos RN , Afia 09/16/18 14:31:12 09/16/18 14:31:12 09/16/18 14:31:12 Entry 4 Entry 5 Case Attendee Breanna RN , Afia Bernabe RN Rosalio Role Performed brass wind instrument maker Design Drafter Time In 09/16/18 14:20:00 09/16/18 14:20:00 Time Out 09/16/18 14:30:00 09/16/18 14:30:00 Procedure Egd_(N/A) Egd_(N/A) Attendee Comment Relief Reason Last Modified By: Breanna RN , Afia Carlos RN , Afia 09/16/18 14:31:12 09/16/18 14:31:12 CO W Endo General Case Sba Underwriter 1 OR CO W EN 02 ASA Class 3 Case Wound Class None Specialty General Surgery Case Level N/A Diagnosis Preop Diagnosis K21.9 Gastro-esophageal Postop Same As Preop No reflux disease without esophagitis Postop Diagnosis SMALL HIATAL HERNIA This is a down time No record. Last Modified By: Julieta MARTIN , Sherrie Mota 09/17/18 07:38:32 General Comments: ASA CLASS ADDED PER SCANNED ANES. PAPER RECORD KEILA RN CO W Endo Surgical Procedures Entry 1 Procedure Egd_ Primary Procedure Yes Modifiers N/A Procedure Wound None Class Primary Surgeon Keli URBINA , Tristan Surgical Service General Surgery Anesthesia Type MAC Procedure Performed (EGD) ESOPHAGOGASTRODUODENO SCO PY Start 09/16/18 14:26:00 Stop 09/16/18 14:28:00 Last Modified By: Julieta MARTIN , Sherrie Mota 09/17/18 07:39:25 General Comments: ANESTHESIA TYPE CHANGED [...] 07:39 Sherrie Rendon RN 09/17/18 07:39 Normal [facility] Post PACU Nursingon 09-17-20 18 Post PACU Nursing [facility] PACU II Nursing Record Summary Primary Physician: Tristan Tate MD Finalized Date/Time: 09/17/18 07:40:27 Pt. Name: SABRINA VELASQUEZ/Sex: 1990 Female Med Rec #: [id number] Physician: Financial #: [id number] Pt. Type: I Room/Bed: / Admit/Disch: 09/16/18 13:46:00 - 09/16/18 15:20:00 Institution: [facility] PACU II Case Times Entry 1 In PACU II 09/16/18 14:34:00 Ready for PACU II 09/16/18 14:49:00 Discharge Discharge from PACU 09/16/18 15:20:00 II Last Modified By: Rocio Turcios RN 09/16/18 15:26:17 CO [facility] PACU II Case Attendees Entry 1 Case Attendee Rocio Turcios RN Role Performed RN Last Modified By: Rocio Turcios RN 09/16/18 15:04:00 Finalized By: Sherrie Rendon RN Document Signatures Signed By: Sherrie Rendon RN 09/17/18 07:35 Sherrie Rendon RN 09/17/18 07:40 Normal [facility] PreOp Nursingon 09-17-2018 PreOp Nursing CO DAVIDW Endo PreOp Nursing Record Summary Primary Physician: Tristan Tate MD Finalized Date/Time: 09/17/18 07:36:42 Pt. Name: SABRINA VELASQUEZ /Sex: 1990 Female Med Rec #: [id number] Physician: Financial #: [id number] Pt. Type: I Room/Bed: / Admit/Disch: 09/16/18 [...] 07:36 Sherrie Rendon RN 09/17/18 07:36 Normal [facility] Patient Summaryon 09-16-2018 Patient Summary PATIENT DISCHARGE INSTRUCTIONS If you are having an emergency and are not able to reach your physician, CALL 911 or go to the nearest emergency room and take this document with you. Roney Zhong [place] 09/16/18 14:45 [address] [place]. [address] PATIENT INFORMATION Name: SABRINA VELASQUEZ Address: [address] [place] [id number] Age: 28 Years Phone: [phone] : 1990 12:00 MRN: [id number] Sex: Female Race: White Ethnicity: Declined Admitted From: Clinic or [facility] Medical Service: Surgery Nurse Unit/Bed: (MT) [facility] N/A Admit Date: 09/16/2018 13:46 PCP: Omid Killian MD PHYSICIANS INVOLVED WITH CARE ------ Attending Physicians: Tristan Tate MD Surgery Admitting Physician: None found Primary Care Physician:Omid Killain MD, - Consults: None found ALLERGIES: No [...] doses are changed, or new medications (including coho-eic-gdjljcj products) are added. Ask your doctor if [...] having thoughts of suicide, please call the [employer] suicide hotline, anytime day or night, at 6-409-611-RHNK. Important information about accessing your health information through the [place] [employer] patient portal If you initiated the self-registration process for [employer] during your stay, please check your personal email for an invitation to enroll in [employer] and complete the steps outlined in the email. If you would prefer to enroll while in the hospital, ask a member of your care team. We would be happy to assist you. If you have already enrolled in [employer], go to [email or web address] to login and access your health information. Thank you for choosing [employer]. PATIENT EDUCATION Esophagogastroduodeno scopy, Care After Refer [...] 11/02/2013 Document Revised: 12/07/2015 Document Reviewed: 11/02/2013 [employer] Patient Education ?2015 [employer] VIRUSES OR BACTERIA: WHAT'S GOT YOU [...] Relationship to Patient Clinician Signature Date/Time Normal [facility] ECG 12 leadon 06-14-2018 Atrial Rate Invalid Interpretation [facility] Invalid Interpretation Code [facility] P-R Interval Invalid Interpretation Code [facility] Q-T Interval Invalid Interpretation Code [facility] Q-T Interval (corrected) Invalid Interpretation Code [facility] QRS Duration Invalid Interpretation Code [facility] QTC Calculation (Bezet) Invalid Interpretation [facility] Invalid Interpretation [facility] Invalid Interpretation Code [facility] Ventricular Rate Invalid Interpretation Code [facility] Vital Signs Date Time Vital Sign Value Performing Clinician Brittneyi [facility] 03-30-2025 11:46-0400 Body mass index (BMI) [Ratio] 43.87 kg/m2 Arvind Mallory DO Work Phone: [facility] 03-30-2025 11:46-0400 Body weight 123.29 kg Arvind Mallory DO Work Phone: [facility] 03-30-2025 11:46-0400 Diastolic blood pressure 80 mm[Hg] Arvind Mallory DO Work Phone: [facility] 03-30-2025 11:46-0400 Systolic blood pressure 120 mm[Hg] Arvind Mallory DO Work Phone: [facility] 03-02-2025 12:04-0400 Body mass index (BMI) [Ratio] 44.22 kg/m2 Arvind Mallory DO Work Phone: [facility] 03-02-2025 12:04-0400 Body weight 124.29 kg Arvind Mallory DO Work Phone: [facility] 03-02-2025 12:04-0400 Diastolic blood pressure 76 mm[Hg] Arvind Mallory DO Work Phone: [facility] 03-02-2025 12:04-0400 Systolic blood pressure 124 mm[Hg] Arvind Mallory DO Work Phone: [facility] 08-16-2024 13:22-0400 Body mass index (BMI) [Ratio] 43.16 kg/m2 Arvind Mallory DO Work Phone: [facility] 08-16-2024 13:22-0400 Body weight 121.29 kg Arvind Mallory DO Work Phone: [facility] 08-16-2024 13:22-0400 Diastolic blood pressure 74 mm[Hg] Arvind Mallory DO Work Phone: [facility] 08-16-2024 13:22-0400 Systolic blood pressure 124 mm[Hg] Arvnid Mallory DO Work Phone: [facility] 08-09-2024 13:21-0400 Body mass index (BMI) [Ratio] 43.42 kg/m2 Arvind Mallory DO Work Phone: [facility] 08-09-2024 13:21-0400 Body weight 122.02 kg Arvind Mallory DO Work Phone: [facility] 08-09-2024 13:21-0400 Diastolic blood pressure 74 mm[Hg] Arvind Mallory DO Work Phone: [facility] 08-09-2024 13:21-0400 Systolic blood pressure 118 mm[Hg] Arvind Mallory DO Work Phone: [facility] 07-14-2020 13:00-0400 BP Diastolic 78 mm[Hg] Alicia Hudson [facility] 07-14-2020 13:00-0400 BP Systolic 123 mm[Hg] Alicia Hudson [facility] 07-14-2020 13:00-0400 Pulse (Heart Rate) 55 /min Mattmohinder Hudson [facility] 07-14-2020 13:00-0400 Pulse Oximetry 100 % Alicia Hudson [facility] 07-14-2020 10:06-0400 Body Temperature 98.8 [degF] Alicia uHdson [facility] 07-14-2020 10:04-0400 BMI (Body Mass Index) 43.58 kg/m2 Alicia Hudson [facility] 07-14-2020 10:04-0400 Body weight 122.47 kg Alicia Hudson [facility] 07-14-2020 10:04-0400 Height 167.6 cm Alicia Hudson [facility] 07-14-2020 10:04-0400 Respiratory Rate 16 /min Alicia Hudson [facility] 06-14-2018 09:16-0400 BMI (Body Mass Index) 63.24 kg/m2 [facility] 06-14-2018 09:16-0400 BP Diastolic 84 mm[Hg] [facility] 06-14-2018 09:16-0400 BP Systolic 128 mm[Hg] [facility] 06-14-2018 09:16-0400 Height 167.6 cm [facility] 06-14-2018 09:16-0400 Pulse (Heart Rate) 64 /min [facility] 06-14-2018 09:16-0400 Pulse Oximetry 98 % [facility] 06-14-2018 09:16-0400 Weight 177.72 kg [facility] Encounters Encounter Date Encounter Type Care Provider Facility Start: 03-30-2025 End: 03-30-2025 Office outpatient visit 15 minutes Arvind Mallory DO Work Phone: [facility] Comment on above: Encounter for weight management; Abnormal uterine bleeding (AUB); Sterilization consult Start: 03-30-2025 End: 03-30-2025 ambulatory ARVIND MALLORY Not Available Start: 03-02-2025 End: 03-02-2025 Bamboo flowsheet Arvind Mallory DO Work Phone: [facility] Start: 03-02-2025 End: 03-02-2025 Bamboo flowsheet Arvind Mallory DO Work Phone: [facility] Start: 03-02-2025 End: 03-02-2025 ambulatory ARVIND MALLORY Not Available Start: 03-02-2025 End: 03-02-2025 Office outpatient visit 15 minutes Arvind Mallory DO Work Phone: [facility] Comment on above: Intrauterine device surveillance; Abnormal uterine bleeding (AUB); Encounter for weight management; Hidradenitis suppurativa Start: 08-16-2024 End: 08-16-2024 ambulatory ARVIND MALLORY Not Available Start: 08-16-2024 End: 08-16-2024 Patient encounter procedure Arvind Mallory DO Work Phone: [facility] Comment on above: Encounter for IUD in sertion Start: 08-09-2024 End: 08-09-2024 Postop follow up visit related to original px Arvind Mallory DO Work Phone: [facility] Comment on above: 6 weeks f ollow-up; S/P section Start: 08-09-2024 End: 08-09-2024 ambulatory ARVIND MALLORY Not Available Start: 07-06-2024 End: 07-06-2024 ambulatory ARVIND MALLORY Not Available Start: 07-05-2024 End: 07-05-2024 Emergency department patient visit [facility] Start: 07-04-2024 End: 07-04-2024 ambulatory YESSICA GOVEA Not Available Start: 06-25-2024 End: 06-25-2024 ambulatory Radha Tomas [facility] Work Phone: Start: 06-25-2024 End: 06-25-2024 Departed Referred MD Radha Tomas Work Phone: [facility] Start: 06-21-2024 End: 06-21-2024 ambulatory YESSICA GOVEA Not Available Start: 06-14-2024 End: 06-14-2024 ambulatory ARVIND MALLORY Not Available Start: 06-09-2024 End: 06-09-2024 ambulatory ARVIND MALLORY Not Available Start: 06-01-2024 End: 06-01-2024 ambulatory ARVIND MALLORY Not Available Start: 05-19-2024 End: 05-19-2024 ambulatory ARVIND MALLORY Not Available Start: 05-04-2024 End: 05-04-2024 ambulatory YESSICA GOVEA Not Available Start: 04-19-2024 End: 04-19-2024 ambulatory ARVIND MALLORY Not Available Start: 04-06-2024 End: 04-06-2024 ambulatory YESSICA GOVEA Not Available Start: 07-14-2020 End: 07-14-2020 Emergency department patient visit OMID MARTINE[facility] Start: 07-14-2020 End: 07-14-2020 Emergency department patient visit Alicia Hudson Work Phone: [facility] Comment on above: Threatened (Primary Dx) Start: 12-13-2018 End: 12-13-2018 Patient encounter procedure Lauren Rivera [facility] Start: 06-14-2018 End: 06-14-2018 Patient encounter PROVIDER NOT IN SYSTEM [facility] Start: 06-14-2018 End: 06-14-2018 Office outpatient new 30 minutes Provider Not In [facility] Start: 05-17-2018 End: 05-17-2018 Patient encounter VANESSA ROLAND [facility] Start: 05-17-2018 End: 05-17-2018 Office outpatient new 30 minutes Vanessa Roland Work Phone: [facility] Procedures Date Procedure Procedure Detail Performing Clinician Start: 03-30-2025 Urnls dip stick/tablet rgnt non-auto w/o micrscp Arvind Mallory DO Work Phone: Start: 03-02-2025 Urnls dip stick/tablet rgnt non-auto w/o micrscp Arvind Mallory DO Work Phone: Start: 08-16-2024 IUD INSERTION Arvind Mallory DO Work Phone: Start: 08-16-2024 Urine test visual color cmprsn meths Arvind Mallory DO Work Phone: Start: 07-14-2020 Blood group typing Chris smallwood [...] vaginalis rRNA assay Chris Pate Work Phone: H/O: section S/P sectio n Arvind Mallory DO Work Phone: Plan of Treatment Date Care Activity Detail Author Start: 05-02-2025 End: 05-02-2025 Patient encounter procedure 05/02/2025 9:30 AM EDT Procedure Visit [facility] [address] [place] [phone] Arvind Tejada, DO [address] [place] [address] [facility] Start: 04-27-2025 End: 04-27-2025 Patient encounter procedure 04/27/2025 10:30 AM EDT Office Visit [facility] [address] [place] [phone] Arvind Tejada, DO [address] [place] [address] [facility] Start: 04-20-2025 End: 04-20-2025 Patient encounter procedure 04/20/2025 11:00 AM EDT Office Visit [facility] [address] [place] [phone] Yessica Govea PA [address] [place] [address] [facility] Start: 03-30-2025 End: 03-30-2025 Patient encounter procedure 03/30/2025 11:30 AM EDT Office Visit [facility] [address] [place] [phone] Arvind Tejada, DO [address] [place] [address] [facility] Start: 03-30-2025 End: 03-30-2025 Professional / ancillary services management 03/30/2025 11:00 AM EDT Ancillary Procedure [facility] [address] [place] [phone] [facility] Start: 03-02-2025 End: 03-02-2026 US Pelvis transvaginal US pelvis transvaginal Imaging Routine Intrauterine device surveillance Abnormal uterine bleeding (AUB) Expected: 03/02/2025, Expires: 03/02/2026 [facility] Work Phone: Comment on above: Expected: 03/02/2025 , Expires: 03/02/2026 Start: 2025 End: 2025 Patient encounter procedure 2025 2:00 PM EDT Office Visit [facility] [address] [facility] [place] [phone] Arvind Tejada, DO [address] [place] [address] [facility] Start: 08-16-2024 End: 08-16-2024 Patient encounter procedure 08/16/2024 1:00 PM EDT Procedure Visit [facility] [address] [place] [phone] Arvind Tejada, DO [address] [place] [address] [facility] Start: 07-31-2020 Influenza vaccinatio n given Sequential Influenza Vaccine (#1) [facility] Start: 07-31-2018 Influ[facility] vaccination [facility] Start: 07-31-2018 Influenza vaccinatio n given SEQUENTIAL INFLUENZA VACCINE (#1) [facility] Start: 07-19-2018 End: 07-19-2018 Ambulatory 07/19/2018 Office Visit Dermatology Vanessa Roland Jr., DO [address] [place] [address] [phone] [facility] Start: 06-14-2018 End: 06-14-2018 Ambulatory 06/14/2018 Office Visit Cardiology System, Provider Not In [facility], Josefina Matthew MD [address] [place] [address] [phone] [facility] Start: 02-21-2010 Hepatitis C antibody , confirmatory test Hepatitis C Screening [facility] Start: 02-21-2007 HIV screening HIV Screening [facility] Start: 02-21-1995 History and physical examination, annual for health maintenance Wellness Visit [facility] Start: 1990 Screening for malign ant neoplasm of cervix PAP SMEAR [facility] Start: 1990 [facility] End: 07-14-2020 Neisseria gonorrhoeae nucleic acid detection Chlamydia/Gonorrhoeae Amplified RNA Microbiology Routine Once for 1 Occurrences starting 07/14/2020 until 07/14/2020 [facility] Comment on above: Once for 1 Occurrenc es starting 07/14/2020 until 07/14/2020 Neisseria gonorrhoea e nucleic acid detection Chlamydia/Gonorrhoeae Amplified RNA Microbiology Routine 07/14/2020 11:20 AM EDT [facility] Payers Date Payer Category Payer Self-pay 2023 Medicaid [employer] [place] [id number] 2023-Present [address] [place] [id number] 2023 Private Health Insurance [employer] [id number] 2023 Medicaid [id number] 2020 Medicaid [employer] MED[employer] [facility] xxxxxxxxxxx 2020-Present xxxxxxxxxxx [id number] 2020 Medicaid [id number] 2019 Private Health Insurance [id number] 2017 Unknown [id number] 2017 Unknown [facility] HMO/BECKY/ BECKY PLUS/CHOICE PLUS xxxxxxxxx 2017-Present xxxxxxxxx [id number] 1992 Unknown [id number] 2.16.840.1.575218.3.579.2. 903 1992 Unknown [id number] 2.16.840.1.755178.3.579.2. 1258 1992 Unknown [id number] 2.16.840.1.881113.3.579.2. 125 1992 Unknown [id number] 2.16.840.1.637131.3.579.2. 1258 1992 Unknown [id number] 2.16840.1.558639.3.579.2. 1258 1992 Unknown [id number] 2.16840.1.078807.3.579.2. 1258 1992 Unknown [id number] 2.16.840.1.108732.3.579.2. 1258 1992 Unknown [id number] 2.16.840.1.291839.3.579.2. 1258 1992 Unknown [id number] 2.16.840.1.602725.3.579.2. 1258 1992 Unknown [id number] 2.16840.1.238997.3.579.2. 1258 1992 Unknown [id number] 2.16.840.1.444982.3.579.2. 1258 1992 Unknown [id number] 2.16.840.1.447651.3.579.2. 1258 1992 Unknown [id number] 2.16.840.1.635829.3.579.2. 1258 1992 Unknown [id number] 2.16.840.1.802625.3.579.2. 1258 1992 Unknown [id number] 2.16.840.1.360814.3.579.2. 1259 1992 Unknown [id number] 2.16.840.1.932432.3.579.2. 1259 Social History Date Type Detail Facility Start: 05-17-2018 End: 06-14-2018 Tobacco smoking status NHIS Never smoker [facility] Sex Assigned At Not on file [facility] Start: 07-14-2020 Tobacco smoking status NHIS Current some day smoker [facility] Start: 07-14-2020 Alcohol intake Current non-drinker of alcohol (finding) [facility] Exposure to SARS-CoV -2 (event) Not sure [facility] Start: 1990 Sex Assigned At Female [facility] Tobacco smoking stat [facility] Tobacco smoking consumption unknown [facility] Start: 12-03-2023 Gender identity Identifies as female gender (finding) [facility] Start: 12-03-2023 Sexual orientation Heterosexual (finding) [facility] History of Present illness Narrative 03-30-2025 Latanya Barkley LPN - 03/30/2025 11:30 AM EDT Note Date & Type Note Facility 03-30-2025 History of Presen t illness Narrative Reason for Appointment: Patient ID: Sabrina Velasquez is a 35 y.o. female who presents for medication follow up and encounter for weight management Patient presents today for Weight Management Consult. MEDICATIONS Current Outpatient Medications Medication Instructions metFORMIN XR (GLUCOPHAGE-XR) 1,000 mg, Oral, Daily with evening meal, Do not crush, chew, or split. phentermine (ADIPEX-P) 37.5 mg, Oral, Daily before breakfast ALLERGIES No Known Allergies PROBLEMS Active Ambulatory Problems Diagnosis Date Noted No Active Ambulatory Problems Resolved Ambulatory Problems Diagnosis Date Noted No Resolved Ambulatory Problems Past Medical History: Diagnosis Date Drug abuse H/O chlamydia infection H/O gonorrhea H/O herpes simplex infection Rh negative, maternal HISTORY PAST MEDICAL HISTORY SOCIAL HISTORY Past Medical History: Diagnosis Date Drug abuse H/O....PT IS CURRRENTLY 7 MONTHS SOBER OF 12/10/2023 H/O chlamydia infection H/O gonorrhea H/O herpes simplex infection Rh negative, maternal Social History Tobacco Use Smoking status: Not on file Smokeless tobacco: Not on file Substance Use Topics Alcohol use: Not on file Drug use: Not on file FAMILY HISTORY No family history on file. SURGICAL HISTORY Past Surgical History: Procedure Laterality Date SECTION, LOW TRANSVERSE 06/23/2024 GASTRIC BYPASS REVIEW OF SYSTEMS Review of Systems: Review of Systems Constitutional: Negative. HENT: Negative. Eyes: Negative. Respiratory: Negative. Cardiovascular: Negative. Gastrointestinal: Negative. Genitourinary: Positive for menstrual problem and pelvic pain. Musculoskeletal: Negative. Skin: Negative. Neurological: Negative. All other systems reviewed and are negative. Hematological: Negative. Endocrine: Negative. Allergic/Immunologic: Negative. OBJECTIVE Objective: Physical Exam Constitutional: Appearance: Normal appearance. She is well-developed. Cardiovascular: Rate and Rhythm: Normal rate and regular rhythm. Pulmonary: Effort: Pulmonary effort is normal. Breath sounds: Normal breath sounds. Abdominal: General: Bowel sounds are normal. There is no distension. Palpations: Abdomen is soft. Tenderness: There is no abdominal tenderness. There is no guarding or rebound. Musculoskeletal: General: No swelling. Normal range of motion. Right lower leg: No edema. Left lower leg: No edema. Neurological: Mental Status: She is alert and oriented to person, place, and time. Skin: General: Skin is warm and dry. Psychiatric: Mood and Affect: Mood normal. Behavior: Behavior normal. Vitals and nursing note reviewed. Exam conducted with a motor and controls tester present. Vitals: Estimated body mass index is 43.87 kg/m as calculated from the following: Height as of 07/06/24: 5' 6 . Weight as of this encounter: 271 lb 12.8 oz. BP: 120/80 Patient's last menstrual period was 03/14/2025 (approximate). ASSESSMENT & PLAN ICD-10-CM 1. Encounter for weight management Z76.89 POCT urinalysis dipstick manually resulted phentermine (Adipex-P) 37.5 MG tablet POCT , urine manually resulted metFORMIN XR (Glucophage-XR) 500 MG 24 hr tablet 2. Abnormal uterine bleeding (AUB) N93.9 3. Sterilization consult Z30.09 Patient presents today for initial Adipex prescription. The importance of keeping a food journal, proper nutrition/diet, and exercise regimen while taking Adipex has been discussed. Patient verbalized understanding and signed consents to initiate (Adipex) medication therapy. Patient was given a printed prescription signed by provider to take to their local pharmacy. Increased Metformin to 1,000mg daily. Patient complaints of heavy cycles and with IUD. Patient has thought about it and would like to have surgical management with Endometrial ablation with Bilateral Salpingectomy with IUD removal. Provider informed patient that she would be added to 05/19/25 schedule for surgery. Patient to RTC for Adipex/Annual and also appointment for Pre-op/Endometrial Bx. Follow Up: Patient is to return to the office in 1 month for further evaluation to assess patient progress. Weight and blood pressure will need to be captured in order for patient to receive 2nd prescription. Documented by Latanya Barkley LPN on behalf of: Arvind Tejada DO documented in this encounter [facility] History of Present illness Narrative 03-02-2025 Latanya Barkley LPN - 03/02/2025 11:50 AM EDT Note Date & Type Note Facility 03-02-2025 History of Presen t illness Narrative Reason for Appointment: Patient ID: Sabrina Velasquez is a 35 y.o. female who presents for Contraception (Pt present today for an IUD check. Pt had the Mirena inserted on 08/16/2024. Pt complains of having 2 menstrual cycles last month. Patient has continued to bleed since she has had the IUD inserted.) Patient presents today for IUD check MEDICATIONS Current Outpatient Medications Medication Instructions metFORMIN XR (GLUCOPHAGE-XR) 500 mg, Oral, Daily with evening meal, Do not crush, chew, or split. ALLERGIES No Known Allergies PROBLEMS Active Ambulatory Problems Diagnosis Date Noted No Active Ambulatory Problems Resolved Ambulatory Problems Diagnosis Date Noted No Resolved Ambulatory Problems Past Medical History: Diagnosis Date Drug abuse H/O chlamydia infection H/O gonorrhea H/O herpes simplex infection Rh negative, maternal HISTORY PAST MEDICAL HISTORY SOCIAL HISTORY Past Medical History: Diagnosis Date Drug abuse H/O....PT IS CURRRENTLY 7 MONTHS SOBER OF 12/10/2023 H/O chlamydia infection H/O gonorrhea H/O herpes simplex infection Rh negative, maternal Social History Tobacco Use Smoking status: Not on file Smokeless tobacco: Not on file Substance Use Topics Alcohol use: Not on file Drug use: Not on file FAMILY HISTORY No family history on file. SURGICAL HISTORY Past Surgical History: Procedure Laterality Date SECTION, LOW TRANSVERSE 06/23/2024 GASTRIC BYPASS REVIEW OF SYSTEMS Review of Systems: Review of Systems All other systems reviewed and are negative. OBJECTIVE Objective: Physical Exam Constitutional: Appearance: Normal appearance. She is well-developed. Genitourinary: Vulva normal. No IUD strings visualized. Cardiovascular: Rate and Rhythm: Normal rate and regular rhythm. Pulmonary: Effort: Pulmonary effort is normal. Breath sounds: Normal breath sounds. Abdominal: General: Bowel sounds are normal. There is no distension. Palpations: Abdomen is soft. Tenderness: There is no abdominal tenderness. There is no guarding or rebound. Musculoskeletal: General: No swelling. Normal range of motion. Right lower leg: No edema. Left lower leg: No edema. Neurological: Mental Status: She is alert and oriented to person, place, and time. Skin: General: Skin is warm and dry. Psychiatric: Mood and Affect: Mood normal. Behavior: Behavior normal. Vitals and nursing note reviewed. Exam conducted with a motor and controls tester present. Vitals: Estimated body mass index is 44.22 kg/m as calculated from the following: Height as of 07/06/24: 5' 6 . Weight as of this encounter: 274 lb. BP: 124/76 Patient's last menstrual period was 02/27/2025 (approximate). ASSESSMENT & PLAN ICD-10-CM 1. Intrauterine device surveillance Z30.431 POCT urinalysis dipstick manually resulted US pelvis transvaginal 2. Abnormal uterine bleeding (AUB) N93.9 US pelvis transvaginal 3. Encounter for weight management Z76.89 metFORMIN XR (Glucophage-XR) 500 MG 24 hr tablet 4. Hidradenitis suppurativa L73.2 IUD String Check: Patient is doing well but has some complaints of bleeding and cramping following IUD placement. Patient presents today for IUD string check. Strings were NOT visualized and ultrasound ordered to check for IUD placement. Discussed forms of contraception with patient and possible management for cycle regulation as they are still heavy and irregular. Patient will talk with spouse about possible Bilateral Salpingectomy and Endometrial Ablation. Discussed weight management with patient and Metformin will be sent in for Hidradenitis Suppurativa and weight management. Patient will return to clinic in 4 weeks to start Adipex. Follow Up: Patient is to return to the office for annual exam unless needed otherwise. Documented by Latanya Barkley LPN on behalf of: Arvind Tejada DO documented in this encounter [facility] History of Present illness Narrative 08-16-2024 Shari Bertrand LPN - 08/16/2024 1:00 PM EDT Note Date & Type Note Facility 08-16-2024 History of Presen t illness Narrative Associated Order(s): IUD Insertion Post-Procedure Diagnose(s): Encounter for IUD insertion Reason for Appointment: Patient ID: Sabrina Velasquez is a 34 y.o. female who presents for Mirena insertion Patient presents today for a IUD Insertion appointment. MEDICATIONS No current outpatient medications ALLERGIES No Known Allergies SURGICAL HISTORY Past Surgical History: Procedure Laterality Date SECTION, LOW TRANSVERSE 06/23/2024 GASTRIC BYPASS REVIEW OF SYSTEMS Review of Systems: Review of Systems Constitutional: Negative. HENT: Negative. Eyes: Negative. Respiratory: Negative. Cardiovascular: Negative. Gastrointestinal: Negative. Genitourinary: Negative. Musculoskeletal: Negative. Skin: Negative. Neurological: Negative. All other systems reviewed and are negative. Hematological: Negative. Endocrine: Negative. Allergic/Immunologic: Negative. OBJECTIVE Objective: Physical Exam Constitutional: Appearance: Normal appearance. She is well-developed. Genitourinary: Vulva normal. Cardiovascular: Rate and Rhythm: Normal rate and regular rhythm. Pulmonary: Effort: Pulmonary effort is normal. Breath sounds: Normal breath sounds. Abdominal: General: Bowel sounds are normal. There is no distension. Palpations: Abdomen is soft. Tenderness: There is no abdominal tenderness. There is no guarding or rebound. Musculoskeletal: General: No swelling. Normal range of motion. Right lower leg: No edema. Left lower leg: No edema. Neurological: Mental Status: She is alert and oriented to person, place, and time. Skin: General: Skin is warm and dry. Psychiatric: Mood and Affect: Mood normal. Behavior: Behavior normal. Vitals and nursing note reviewed. Exam conducted with a motor and controls tester present. Vitals: Estimated body mass index is 43.16 kg/m as calculated from the following: Height as of 8/7/24: 5' 6 . Weight as of this encounter: 267 lb 6.4 oz. BP: 124/74 No LMP recorded. ASSESSMENT & PLAN Assessment/Plan Encounter Diagnosis: ICD-10-CM 1. Encounter for IUD insertion Z30.430 Levonorgestrel intrauterine device 52 mg POCT , urine manually resulted IUD Insertion Date/Time: 08/16/2024 1:40 PM Performed by: Arvind Tejada DO Authorized by: Arvind Tejada DO Consent: Consent obtained: Written Consent given by: Patient Procedure risks and benefits discussed: yes Patient questions answered: yes Patient agrees, verbalizes understanding, and wants to proceed: yes Educational handouts given: yes Instructions and paperwork completed: yes [place] protocol: Patient states understanding of procedure being performed: yes Relevant documents present and verified: yes Test results available and properly labeled: yes Imaging studies available: yes Required blood products, implants, devices, and special equipment available: yes Procedure: Pelvic exam performed: yes Negative GC/chlamydia test: no Negative urine test: yes Negative serum test: no Cervix cleaned and prepped: yes Speculum placed in vagina: yes Tenaculum applied to cervix: yes Uterus sounded: yes IUD inserted with no complications: yes IUD type: Mirena Strings trimmed: yes Post-procedure: Patient tolerated procedure well: yes Patient will follow up after next period: no Documented by Shari Bertrand LPN on behalf of: Arvind Tejada DO documented in this encounter [facility] History of Present illness Narrative 08-09-2024 Shari Bertrand LPN - 08/09/2024 1:20 PM EDT Note Date & Type Note Facility 08-09-2024 History of Presen t illness Narrative Reason for Appointment: Patient ID: Sabrina Velasquez is a 34 y.o. female who presents for Care (Pt present today for 6 week post visit. Pt delivered on 06/23/2024) Patient presents today for Post Follow Up appointment. MEDICATIONS Current Outpatient Medications Medication Instructions BABY ASPIRIN PO 81 mg, Oral, Daily citalopram (CELEXA) 20 mg, Oral, Daily ibuprofen 800 mg, Oral, Every 6 hours PRN [id number] ( 1 + IRON PO) Oral ALLERGIES No Known Allergies PROBLEMS Active Ambulatory Problems Diagnosis Date Noted No Active Ambulatory Problems Resolved Ambulatory Problems Diagnosis Date Noted No Resolved Ambulatory Problems Past Medical History: Diagnosis Date Drug abuse (CMS/[facility]) H/O chlamydia infection H/O gonorrhea H/O herpes simplex infection Rh negative, maternal HISTORY PAST MEDICAL HISTORY SOCIAL HISTORY Past Medical History: Diagnosis Date Drug abuse (CMS/[facility]) H/O....PT IS CURRRENTLY 7 MONTHS SOBER OF 12/10/2023 H/O chlamydia infection H/O gonorrhea H/O herpes simplex infection Rh negative, maternal Social History Tobacco Use Smoking status: Not on file Smokeless tobacco: Not on file Substance Use Topics Alcohol use: Not on file Drug use: Not on file FAMILY HISTORY No family history on file. SURGICAL HISTORY Past Surgical History: Procedure Laterality Date SECTION, LOW TRANSVERSE 06/23/2024 GASTRIC BYPASS REVIEW OF SYSTEMS Review of Systems: Review of Systems Constitutional: Negative. HENT: Negative. Eyes: Negative. Respiratory: Negative. Cardiovascular: Negative. Gastrointestinal: Negative. Genitourinary: Negative. Musculoskeletal: Negative. Skin: Negative. Neurological: Negative. All other systems reviewed and are negative. Hematological: Negative. Endocrine: Negative. Allergic/Immunologic: Negative. OBJECTIVE Objective: Physical Exam Constitutional: Appearance: Normal appearance. She is well-developed. Cardiovascular: Rate and Rhythm: Normal rate and regular rhythm. Pulmonary: Effort: Pulmonary effort is normal. Breath sounds: Normal breath sounds. Abdominal: General: Bowel sounds are normal. There is no distension. Palpations: Abdomen is soft. Tenderness: There is no abdominal tenderness. There is no guarding or rebound. Musculoskeletal: General: No swelling. Normal range of motion. Right lower leg: No edema. Left lower leg: No edema. Neurological: Mental Status: She is alert and oriented to person, place, and time. Skin: General: Skin is warm and dry. Psychiatric: Mood and Affect: Mood normal. Behavior: Behavior normal. Vitals and nursing note reviewed. Exam conducted with a motor and controls tester present. Vitals: Estimated body mass index is 43.42 kg/m as calculated from the following: Height as of 07/06/24: 5' 6 . Weight as of this encounter: 269 lb. BP: 118/74 Patient's last menstrual period was 09/25/2023. ASSESSMENT & PLAN ICD-10-CM 1. 6 weeks follow-up Z39.2 2. S/P section Z98.891 Post Follow Up: Patient is doing well but has complaints of none. Patient presents today for 6 week visit. Patient is s/p delivery. Patient states depression but denies suicidal and homicidal ideations. All options were discussed with the patient regarding control and patient desires IUD. Follow Up: Patient is to return for annual unless needed otherwise. Documented by Shari Bertrand LPN on behalf of: Arvind Tejada DO documented in this encounter [facility] Evaluation note Note Date & Type Note Facility Evaluation note No assessment information [facility] Work Phone: Evaluation note Note Date & Type Note Facility Evaluation note Diagnosis 6 weeks follow-up S/P section Other postprocedural status documented in this encounter [facility] Evaluation note Note Date & Type Note Facility Evaluation note Diagnosis Encounter for IUD insertion Insertion of intrauterine contraceptive device documented in this encounter [facility] Evaluation note Note Date & Type Note Facility Evaluation note Diagnosis Intrauterine device surveillance Abnormal uterine bleeding (AUB) Encounter for weight management Hidradenitis suppurativa Hidradenitis documented in this encounter [facility] Evaluation note Note Date & Type Note Facility Evaluation note Diagnosis Encounter for weight management Abnormal uterine bleeding (AUB) Sterilization consult Other general counseling and advice for contraceptive management documented in this encounter [facility] Assessments Note Patient: SABRINA VELASQUEZ MRN : ([id number] [facility]: [phone] Age: 29 years Sex: Female : 1990 [...] for home later today Logan Driscoll MD [phone] SURGERY PROGRESS NOTE SUBJECTIVE: Patient denies abd [...] FoundDocuments on File Type Date Recorded 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 [facility] 09/16/18 14:45 [address] [place] [address] PATIENT INFORMATION Name: SABRINA VELASQUEZ [address]: [address] [place] [id number] Age: 28 Years Phone: [phone] : 1990 12:[birth year] MRN: ([id number] Sex: Female Race: White Ethnicity: Declined Admitted From: Clinic or Phys Ofc Medical Service: Surgery Nurse Unit/Bed: (CO) W-ENDW N/A Admit Date: 09/16/2018 13:46 PCP: Omid Killian MD PHYSICIANS INVOLVED WITH CARE Attending Physicians: Tristan Tate MD - Surgery Admitting Physician: None found Primary Care Physician:Omid Killian MD, - Consults: None found Problems Active Obesity IBS (irritable bowel syndrome) GERD (gastroesophageal reflux disease) Murmur Allergies NKA Procedures Tonsillectomy (2009) MEASUREMENTS: Last (more content not included)... Note CLINICAL SUMMARY Please take this summary document to your follow up appointments. [facility] 03/01/19 18:42 [address] [place] [address] PATIENT INFORMATION Name: SABRINA VELASQUEZ Address: [address] [place] [id number] Age: 29 Years Phone: [phone] : 1990 12:00 MRN: [id number] Sex: Female Race: White Ethnicity: Declined Admitted From: Clinic or Phys Ofc Medical Service: Surgery Nurse Unit/Bed: (CO) 7TWH [id number] Admit Date: 02/28/2019 08:18 PCP: Omid Killian MD PHYSICIANS INVOLVED WITH CARE Attending Physicians: Marcellus Driscoll MD - Surgery Admitting Physician: Marcellus Driscoll MD Primary Care Physician:Killian MD , Omid S, - Consults: None found Problems Active Morbid (severe) obesity due to excess calories Obesity IBS (irritable bowel syndrome) GERD (gastroesophageal reflux (more content not included)... Note Patient: SABRINA VELASQUEZ [id number] Age: 29 years Sex: Female : 1990 [...] GERD, IBS, and heart murmur presented to [facility] on 02/28/2019 for an elective robotically assisted laparoscopic [place]-en-Y gastric bypass with DrCarlos by Purnima lawrence had an extensive preoperative workup. Patient tolerated the procedure well and was transferred to PACU in stable condition where she had an uneventful recovery. His then tra (more content not included)... Note Patient: SABRINA VELASQUEZ MRN : [id number] Age: 29 years Sex: Female : 1990 [...] for home later today Logan Driscoll MD [phone] SURGERY PROGRESS NOTE SUBJECTIVE: Patient denies abd [...] (02/28 12:00 (more content not included)... Note [facility] Patient Name: Sabrina Velasquez Procedure Date: 09/16/2018 1:40 PM Date of : 1990 Age: 28 Gender: Female Procedure: Upper GI endoscopy Indications: Suspected esophageal reflux, Preoperative assessment for bariatric surgery to treat morbid obesity Providers: TRISTAN TATE MD , KASIE DELVALLE CRNA, CHARBEL SAUL MD Referring MD: OMID KILLIAN MD Requesting Provider: Medicines: Monitored Anesthesia Care Complications: No immediate complications. Procedure: Pre-Anesthesia Assessment: - Prior to the procedure, a History and Physical was performed, and patient medications, allergies and sensitivities were reviewed. The patient's tolerance of previous anesthesia was reviewe (more content not included)... Note Patient: SABRINA VELASQUEZ MRN: [facility])-[id number] Age: 28 years Sex: Female : 1990 Associated Diagnoses: None Author: Kasie Delvalle CRNA Supervising Physician Comments Documentation By: Certified Registered Nurse Tugboat Engineer. Subjective Subjective: Patient participated in the evaluation: [...] Patient: SABRINA VELASQUEZ MRN : [id number] Age: 29 years Sex: Female : 1990 Associated Diagnoses: None Author: Charbel Saul DO Subjective Subjective: Patient participated in the [...] (more content not included)... Procedure Findings Note [facility] Patient Name: Sabrina Velasquez Procedure Date: 09/16/2018 1:40 PM Date of : 1990 Age: 28 Gender: Female Procedure: Upper GI endoscopy Indications: Suspected esophageal reflux, Preoperative assessment for bariatric surgery to treat morbid obesity Providers: TRISTAN TATE MD , KASIE DELVALLE CRNA, CHARBEL SAUL MD Referring MD: OMID KILLIAN MD Requesting Provider: Medicines: Monitored Anesthesia Care Complications: No immediate complications. Procedure: Pre-Anesthesia Assessment: - Prior to the procedure, a History and Physical was performed, and patient medications, allergies and sensitivities were reviewed. The patient's tolerance of previous anesthesia was reviewe (more content not included)... Note Patient: SABRINA VELASQEUZ MRN: [facility])-[id number] Age: 28 years Sex: Female : 1990 Associated Diagnoses: None Author: Kasie Delvalle CRNA Supervising Physician Comments Documentation By: Certified Registered Nurse Tugboat Engineer. Subjective Subjective: Patient participated in the evaluation: [...] Patient: SABRINA VELASQUEZ MRN : [facility])-[id number] Age: 29 years Sex: Female : 1990 Associated Diagnoses: None Author: Charbel Saul DO Subjective Subjective: Patient participated in the [...] sent through Care Everywhere. * Miscarriage: Threatened (Chinese) documented in this encounter Additional Source Comments [...] nondistended Alicia Hudson MD ED Attending Physician [facility] Emergency Department documented in this encounter INFORMATION SOURCE (unrecogn ized section and content) DATE CREATED AUTHOR 06/15/2018 [facility] DATE CREATED AUTHOR AUTHOR'S ORGANIZ ATION 08/09/2019 [facility] DATE CREATED AUTHOR AUTHOR'S ORGANIZ ATION 12/27/2020 [facility] DATE CREATED AUTHOR AUTHOR'S ORGANIZ ATION 07/03/2024 [facility] DATE CREATED AUTHOR AUTHOR'S ORGANIZ ATION 07/08/2024 [facility] DATE CREATED AUTHOR AUTHOR'S ORGANIZ ATION 04/04/2025 [facility] EPIC Reason for Visit (unrecogniz ed section and content) Reason Comments Vaginal Bleeding Reason Comments Care Pt present today for 6 week post visit. Pt delivered on 06/23/2024 Reason Comments Mirena insertion Reason Comments Contraception Pt present today for an IUD check. Pt had the Mirena inserted on 08/16/2024. Pt complains of having 2 menstrual cycles last month. Patient has continued to bleed since she has had the IUD inserted. Reason Comments medication follow up encounter for weight management Chris Pate PA-C - 07/14/2020 10:43 AM EDTWDorinda roblero RN - 07/14/2020 10:07 AM EDTWDorinda roblero RN - 07/14/2020 10:04 AM EDT ED Notes (unrecognized secti on and content) ED PROVIDER NOTE [facility] EMERGENCY [facility] NAME: Sabrina Velasquez AGE: 30 y.o. : 1990 VISIT DATE: 07/14/2020 CSN: [id number] PCP: Omid Killian MD Clinical Impression: 1. Threatened ED Disposition ED Disposition Condition Comment Discharge Stable Sabrina Velasquez discharged to home/self care in stable condition. Follow-up Information 1. Roni Clemens MD. Specialty: Obstetrics/Gynecology Why: For recheck of today's symptoms [address] [facility] [address] 2. [facility] Emergency Department. Specialty: Emergency Medicine Why: As needed, If symptoms worsen [address] [facility] [address] Contact information for after-discharge care Follow-up information [...] this point clinically. Patient has appointment with UNDERCOVER OPERATOR on Thursday. Considered implantation bleeding, threatened , [...] reports she is scheduled to see her UNDERCOVER OPERATOR Dr. Clemens next week. Patient denies any [...] file Gets together: Not on file Attends orthodox service: Not on file Active member of [...] nursing note reviewed. Exam conducted with a motor and controls tester present. Constitutional: Appearance: Normal appearance. HENT: Head: [...] Colorless, Yellow Clarity, Urine Clear Clear Specific Chambers 1.011 1.005 - 1.025 pH, Urine 7.0 [...] bleeding, spontaneous of is believed most likely. [facility] Workstation ID: [id number] Procedures The patient [...] pre-hypertension or hypertension. . Chris Pate PA-C [facility] [facility] Chris Pate PA-C 07/14/20 1340 Bed: 24 Expected date: Expected time: Means of arrival: Comments: triage Pt states I am currently 6 weeks and having vaginal bleeding that started yesterday morning. It is light pink and stringy documented in this encounter Care Teams (unrecognized sec tion and content) Team Status: Inactive Member Role Status Dates Radha Tomas MD Attending Provider Active Start: June 25, 2024 End: June 25, 2024 Goals (unrecognized section and content) Goals may be documented in a n alternate section FOR RECORDS PERTAINING TO PATIENTS WHO ARE [...] BE BASED ON THE PRIMARY CLINICAL RECORDS. [facility]. provides no warranty or guarantee of the accuracy or completeness of information in this document.
--- NOTE | 2025-04-26 12:45 | XR_ITS ---
[facility] [place] [id number] Patient Name: SABRINA VELASQUEZ MRN: [id number] date: 1990 Sex: F Assigned Patient Location: [facility] Current Patient Location: [facility] Accession/Order Number: [id number] Exam Date: 04/26/2025 13:15 Report Date: 04/26/2025 13:16 At the request of: LIA BENAVIDES DO Procedure: XR chest 2V PA AND LATERAL CHEST: CLINICAL HISTORY: Preoperative clearance COMPARISON: None There is no focal parenchymal consolidation, effusion or pneumothorax. The cardiac, hilar and mediastinal silhouettes are within normal limits. There is no vascular congestion. The visualized bony thorax is intact. XR/XR chest 2V IMPRESSION: NO ACUTE CARDIOPULMONARY ABNORMALITY. Impression dictated by: Shari Andrade M.D. 04/26/2025 1:16 PM Dictation Location: [place] [address] Electronically authenticated by: [id number] Y Date: 04/26/2025 13:16
[2025-04-26 12:57] LABS: Basophils Percent Auto 0.6 % (0.2-2.0); Eosinophils Absolute Auto 0.1 10^3/uL (0.0-0.7); Eosinophils Percent Auto 1.6 % (0.9-7.0); Hematocrit 36.2 % (36.0-48.0); Hemoglobin 11.6 g/dL (12.0-16.0); Immature Granulocytes Abs Auto 0.01 10^3/uL (0.00-0.03); Immature Granulocytes Pct Auto 0.2 % (0.0-0.5); Lymphocytes Absolute Auto 1.7 10^3/uL (1.2-3.8); Lymphocytes Percent Auto 33.3 % (20.5-60.0); Mean Corpuscular Hemoglobin 24.9 pg (26.7-34.0); Mean Corpuscular Volume 77.8 fL (81.0-99.0); Mean Platelet Volume 11.9 fL (9.5-13.5); Monocytes Absolute Auto 0.5 10^3/uL (0.3-0.8); Monocytes Percent Auto 9.5 % (1.7-12.0); Neutrophils Absolute Auto 2.8 10^3/uL (1.4-6.5); Neutrophils Percent Auto 54.8 % (43.0-75.0); Platelet Count 182 10^3/uL (150-450); Red Blood Count 4.65 10^6/uL (4.20-5.40); Red Cell Distribution Width 16.1 % (11.0-15.0); White Blood Count 5.1 10^3/uL (4.0-11.0)
[2025-04-26 13:47] LABS: HCG Quantitative <1 mIU/mL
== END 2025-04-26 12:24 | disposition home or self-care (01) ==
LOC: PST 12:23
PROVIDERS: Visit Provider Obstetrics & Gynecology
DX: Z01.810 Encounter for preprocedural cardiovascular examination (principal); Z01.812 Encounter for preprocedural laboratory examination; T83.39XA Other mechanical complication of intrauterine contraceptive device, initial encounter
CPT/HCPCS: 71046; 84702; 85025

== ENCOUNTER 2025-04-27 10:42 | Day surgery (SDC) | payer OTHER, SELFPAY ==
[2025-04-26 12:49] VITALS: BP 131/79; PULSE 69; TEMP 36.4; O2SAT 100; BMI 42.1
[2025-04-27] VITALS (10 sets, daily range): BP systolic 99–148; BP diastolic 57–87; PULSE 55–87; TEMP 36.2–36.3; O2SAT 96–100; BMI 42.0
--- OUTSIDE RECORDS SUMMARY | 2025-04-27 10:49 | XMS_ITS | CCD ---
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 45 g 1 05/17/2018 Active levonorgestrel 0.133274 mg/hr intrauterine system (9 sources) Progestin, Progestin-containi ng Intrauterine Device Start: 08-16-2024 End: 08-15-2029 Levonorgestrel intrauterine device 52 mg 24 hr metFORMIN hydrochloride 500 mg extended release oral tablet (8 sources) Biguanide Start: 03-30-2025 End: 04-29-2025 take [...] Active phentermine hydrochloride 37.5 mg oral tablet (4 sources) Sympathomimetic Amine Anorectic Start: 03-30-2025 End: [...] hours if needed 06/28/2024 08/16/2024 Discontinued (Other) Kotyixmz-Fqd-Qi-F A ( 1 + IRON PO) (3 sources) End: 08-16-2024 Zsiwgxvh-Bgu-Bm-FA ( 1 + IRON PO) Take by [...] Test Name Value Interpretation Reference Range Facility ALL CBC WITH AUTO DIFFon BASOPHILS ABSOLUTE AUTO 0 [facility] Basophils/100 WBC (Bld) 0.6 % 0.2 - 2.0 % [facility] Eosinophils/100 WBC (Bld) 1.6 % 0.9 - 7.0 % [facility] Erythrocyte distribution width (RBC) [Ratio] 16.1 % High 11.0 - 15.0 % [facility] Hematocrit (Bld) [Volume fraction] 36.2 % 36.0 - 48.0 % [facility] Hemoglobin (Bld) [Mass/Vol] 11.6 g/dL Low 12.0 - 16.0 g/dL [facility] IMMATURE GRANULOCYTES ABS AUTO 0.01 [facility] Immature granulocytes/100 WBC (Bld) 0.2 % 0.0 - 0.5 % [facility] Interpretation and review of laboratory results Abnormal [facility] LYMPHOCYTES ABSOLUTE AUTO 1.7 [facility] Lymphocytes/100 WBC (Bld) 33.3 % 20.5 - 60.0 % [facility] MCH (RBC) [Entitic mass] 24.9 pg Low 26.7 - 34.0 pg [facility] MCHC (RBC) [Mass/Vol] 32 g/dL 29.9 - 35.2 g/dL [facility] MCV (RBC) [Entitic vol] 77.8 fL Low 81.0 - 99.0 fL [facility] MONOCYTES ABSOLUTE AUTO 0.5 [facility] Monocytes/100 WBC (Bld) 9.5 % 1.7 - 12.0 % [facility] NEUTROPHILS ABSOLUTE AUTO 2.8 [facility] Neutrophils/100 WBC (Bld) 54.8 % 43.0 - 75.0 % [facility] Platelet mean volume (Bld) [Entitic vol] 11.9 fL 9.5 - 13.5 fL [facility] TBH EO # 0.1 [facility] PLT 182 [facility] TB RBC 4.65 [facility] WBC 5.1 [facility] XR CHEST 2Von 04-26-2025 [place] [address] XRay Report Signed Patient: SABRINA VELASQUEZ MR#: [id number] : 1990 Acct:[id number] Age/Sex: 35 / F ADM Date: 04/26/25 Loc: [facility] Attending Dr: Arvind Tejada D.O. Ordering Physician: Arvind Tejada D.O. Date of Service: 04/26/25 Procedure(s): XR chest 2V Accession Number(s): [id number] cc: Arvind Tejada D.O.; Physician,Non-Staff M.DCarlos [place] [id number] Patient Name: SABRINA VELASQUEZ MRN: [id number] date: 1990 Sex: F Assigned Patient Location: [facility] Accession/Order Number: [id number] Exam Date: 04/26/2025 13:15 Report Date: 04/26/2025 13:16 At the request of: ARVIND TEJADA DO Procedure: XR chest 2V PA AND LATERAL CHEST: CLINICAL HISTORY: Preoperative clearance COMPARISON: None There is no focal parenchymal consolidation, effusion or pneumothorax. The cardiac, hilar and mediastinal silhouettes are within normal limits. There is no vascular congestion. The visualized bony thorax is intact. XR/XR chest 2V IMPRESSION: NO ACUTE CARDIOPULMONARY ABNORMALITY. Impression dictated by: Shari Andrade M.D. 04/26/2025 1:16 PM Dictation Location: [place] [address] Electronically authenticated by: [id number] Y Date: 04/26/2025 13:16 Dictated By: Shari Andrade M.D. Signed By: 04/26/25 1319 DD/ 1316 TD/TT: Registration Rep: [facility] Radiology, Radiologist, MD - 04/26/2025 [place] [address] XRay Report Signed Patient: SABRINA VELASQUEZ MR#: [id number] : 1990 Acct:[id number] Age/Sex: 35 / F ADM Date: 04/26/25 Loc: [facility] Attending Dr: Arvind Tejada D.O. Ordering Physician: Arvind Tejada D.O. Date of Service: 04/26/25 Procedure(s): XR chest 2V Accession Number(s): [id number] cc: Arvind Tejada D.O.; Physician,Non-Staff [place] [id number] Patient Name: SABRINA VELASQUEZ MRN: [facility]:[id number] date: 1990 Sex: F Assigned Patient Location: [facility] Current Patient Location: [facility] Accession/Order Number: [id number] Exam Date: 04/26/2025 13:15 Report Date: 04/26/2025 13:16 At the request of: ARVIND TEJADA DO Procedure: XR chest 2V PA AND LATERAL CHEST: CLINICAL HISTORY: Preoperative clearance COMPARISON: None There is no focal parenchymal consolidation, effusion or pneumothorax. The cardiac, hilar and mediastinal silhouettes are within normal limits. There is no vascular congestion. The visualized bony thorax is intact. XR/XR chest 2V IMPRESSION: NO ACUTE CARDIOPULMONARY ABNORMALITY. Impression dictated by: Shari Andrade M.D. 04/26/2025 1:16 PM Dictation Location: [place] [address] Electronically authenticated by: [id number] Y Date: 04/26/2025 13:16 Dictated By: Shari Andrade M.D. Signed By: 04/26/25 1319 DD/ 1316 TD/TT: Registration Rep: [facility] Radiology Study observation (narrative) [facility] XR CHEST 2VOrdered By: [facility] on 04-26-2025 [facility] Work Phone: HCG ( test) Ql (U)o n 03-30-2025 Interpretation and review of laboratory results Normal [facility] Preg Test, Ur Negative Negative [facility] US PELVIS TRANSVAGINALon US PELVIS TRANSVAGINAL EXAM: [...] report is generated using voice recognition reporting ([employer]). On occasion, hhgregge erroneously drops words from the report or [...] UA Negative Negative - 4(70) +++ mg/dL [facility] Blood, UA Positive Negative - 50 Sunny/mcL [facility] Comment on above: small Clarity, UA Clear [facility] Color, UA Yellow [facility] Glucose, UA Negative Negative - 1999(110) ++++ mg/dL [facility] Interpretation and review of laboratory results Abnormal [facility] Ketones, UA Positive Negative - 160(16) ++++ mg/dL [facility] Comment on above: trace Leukocytes, UA Negative Negative - 500+++ Donis/mcL [facility] Nitrite, UA Negative Negative - Positive [facility] pH, UA 5.5 5 - 9 [facility] Protein, UA Negative Negative - 1999(20) ++++ mg/dL [facility] Spec Grav, UA 1.03 1 - 1.03 [facility] Urobilinogen, UA 1.0 0.2 - 12 mg/dL [facility] Urinalysis macro (dipstick) panel (U)on 03-02-2025 Bilirubin, UA Negative Negative - 4(70) +++ mg/dL [facility] Blood, UA Negative Negative - 50 Sunny/mcL [facility] Clarity, UA Clear [facility] Color, UA Yellow [facility] Glucose, UA Negative Negative - 1999(110) ++++ mg/dL [facility] Interpretation and review of laboratory results Normal [facility] Ketones, UA Positive Negative - 160(16) ++++ mg/dL [facility] Comment on above: trace Leukocytes, UA Negative Negative - 500+++ Donis/mcL [facility] Nitrite, UA Negative Negative - Positive [facility] pH, UA 5.5 5 - 9 [facility] Protein, UA Negative Negative - 1999(20) ++++ mg/dL [facility] Spec Grav, UA 1.025 1 - 1.03 [facility] Urobilinogen, UA 1.0 0.2 - 12 mg/dL [facility] HCG ( test) Ql (U)o n 08-24-2024 Interpretation and review of laboratory results Normal [facility] Preg Test, Ur Negative [facility] IUD Insertionon 08-16-2024 Shari BertrandMELI 08/24/2024 12:25 PM IUD Insertion Date/Time: 08/16/2024 1:40 PM Performed by: Arvind Tejada DO Authorized by: Arvind Tejada DO Consent: Consent obtained: Written Consent given by: Patient Procedure risks and benefits discussed: yes Patient questions answered: yes Patient agrees, verbalizes understanding, and wants to proceed: yes Educational handouts given: yes Instructions and paperwork completed: yes [place] protocol: Patient states understanding of procedure being [...] will follow up after next period: no [facility] CBC AND AUTO DIFFon 07-05-20 24 ABSOLUTE BASOPHIL 0.0 X10E9/L Normal 0.0-0.2 [facility] Comment on above: Performed By: #### C BCA CMP #### [facility] ([id number]) [address] [place] [address] 05381 ABSOLUTE NEUTROPHIL 5.8 X10E9/L Normal 1.5-6.6 [facility] Comment on above: Performed By: #### C MANOJ CMP #### [facility] ([id number]) [address] [place] [address] 62017 Basophils/100 WBC (Bld) 0.3 % Normal [facility] Comment on above: Performed By: #### C BCA CMP #### [facility] ([id number]) [address] [place] [address] 63659 Eosinophils (Bld) [#/Vol] 0.1 10*3/uL Normal 0.0-0.4 [facility] Comment on above: Performed By: #### C BCA, CMP #### [facility] ([id number]) [address] [place] [address] 64863 Eosinophils/100 WBC (Bld) 1.1 % Normal [facility] Comment on above: Performed By: #### C MANOJ, CMP #### [facility] ([id number]) [address] [place] [address] 89229 Erythrocyte distribution width (RBC) [Ratio] 13.0 % Normal 11.5-15.0 [facility] Comment on above: Performed By: #### C MANOJ, CMP #### [facility] ([id number]) [address] [place] [address] 25248 Hematocrit (Bld) [Volume fraction] 25.9 % Low 35-47 [facility] Comment on above: Performed By: #### C BCA, CMP #### [facility] ([id number]) [address] [place] [address] 42926 Hemoglobin (Bld) [Mass/Vol] 9.0 g/dL Low 11.7-15.5 [facility] Comment on above: Performed By: #### C BCA, CMP #### [facility] ([id number]) [address] [place] [address] 33991 Lymphocytes (Bld) [#/Vol] 1.8 10*3/uL Normal 1.0-3.5 [facility] Comment on above: Performed By: #### C BCA, CMP #### [facility] ([id number]) [address] [place] [address] 83163 Lymphocytes/100 WBC (Bld) 21.5 % Normal [facility] Comment on above: Performed By: #### C MANOJ, CMP #### [facility] ([id number]) [address] [place] [address] 50729 MCH (RBC) [Entitic mass] 31.4 pg Normal 27-34 [facility] Comment on above: Performed By: #### C BCA, CMP #### [facility] ([id number]) [address] [place] [address] 42869 MCHC (RBC) [Mass/Vol] 34.7 g/dL Normal 32-36 [facility] Comment on above: Performed By: #### C MANOJ, CMP #### [facility] ([id number]) [address] [place] [address] 08540 MCV (RBC) [Entitic vol] 90 fL Normal 80-100 [facility] Comment on above: Performed By: #### C BCA, CMP #### [facility] ([id number]) [address] [place] [address] 15188 Monocytes (Bld) [#/Vol] 0.5 10*3/uL Normal 0-0.9 [facility] Comment on above: Performed By: #### C BCA, CMP #### [facility] ([id number]) [address] [place] [address] 20699 Monocytes/100 WBC (Bld) 6.5 % Normal [facility] Comment on above: Performed By: #### C BCA, CMP #### [facility] ([id number]) [address] [place] [address] 70700 Neutrophils/100 WBC (Bld) 70.6 % Normal [facility] Comment on above: Performed By: #### C BCA, CMP #### [facility] ([id number]) [address] [place] [address] 41029 Platelet mean volume (Bld) [Entitic vol] 8.9 fL Normal 7-12 [facility] Comment on above: Performed By: #### C MANOJ, CMP #### [facility] ([id number]) [address] [place] [address] 29550 Platelets (Bld) [#/Vol] 239 10*3/uL Normal 150-450 [facility] Comment on above: Performed By: #### C BCA, CMP #### [facility] ([id number]) [address] [place] [address] 93958 RBC COUNT 2.86 X10E12/L Low 3.80-5.20 [facility] Comment on above: Performed By: #### C BCA, CMP #### [facility] ([id number]) [address] [place] [address] 20874 WBC (Bld) [#/Vol] 8.3 10*3/uL Normal 4.0-11.0 [facility] Comment on above: Performed By: #### C MANOJ, CMP #### [facility] ([id number]) [address] [place] [address] 71342 COMPREHENSIVE METABOLIC PANE [facility] 07-05-2024 Albumin [Mass/Vol] 2.6 g/dL Low 3.2-5.3 [facility] Comment on above: Performed By: #### C BCA, CMP #### [facility] ([id number]) [address] [place] [address] 74648 ALP [Catalytic activity/Vol] 84 U/L Normal 39-130 [facility] Comment on above: Performed By: #### C BCA, CMP #### [facility] ([id number]) [address] [place] [address] 60765 ALT [Catalytic activity/Vol] 16 U/L Normal 0-31 [facility] Comment on above: Performed By: #### C BCA, CMP #### [facility] ([id number]) [address] [place] [address] 76382 Anion gap [Moles/Vol] 6 mmol/L Normal 5-15 [facility] Comment on above: Performed By: #### C BCA, CMP #### [facility] ([id number]) [address] [place] [address] 91986 AST [Catalytic activity/Vol] 14 U/L Normal 0-41 [facility] Comment on above: Performed By: #### C BCA, CMP #### [facility] ([id number]) [address] [place] [address] 59720 Bilirubin [Mass/Vol] 0.4 mg/dL Normal 0.3-1.2 [facility] Comment on above: Performed By: #### C BCA, CMP #### [facility] ([id number]) [address] [place] [address] 31950 Calcium [Mass/Vol] 7.8 mg/dL Low 8.5-10.5 [facility] Comment on above: Performed By: #### C BCA, CMP #### [facility] ([id number]) [address] [place] [address] 38286 Chloride [Moles/Vol] 110 mmol/L High 98-109 [facility] Comment on above: Performed By: #### C BCA, CMP #### [facility] ([id number]) [address] [place] [address] 89289 CO2 [Moles/Vol] 23 mmol/L Normal 22-32 [facility] Comment on above: Performed By: #### C BCA, CMP #### [facility] ([id number]) [address] [place] [address] 18758 Creatinine [Mass/Vol] 0.50 mg/dL Normal 0.40-1.00 [facility] Comment on above: Result Comment: METH OD TRACEABLE TO IDMS STANDARD Performed By: #### C BCA, CMP #### [facility] ([id number]) [address] [place] [address] 25191 eGFR (CKD-EPI) NON-RACE DEPENDENT >90 Normal >59 [facility] Comment on above: Result Comment: Reported eGFR is based on the CKD-EPI 2020 equation that does not use a race coefficient. Performed By: #### C BCA, CMP #### [facility] ([id number]) [address] [place] [address] 96371 Glucose [Mass/Vol] 93 mg/dL Normal 65-99 [facility] Comment on above: Performed By: #### C BCA, CMP #### [facility] ([id number]) [address] [place] [address] 46897 Potassium [Moles/Vol] 3.7 mmol/L Normal 3.5-5.0 [facility] Comment on above: Performed By: #### C BCA, CMP #### [facility] ([id number]) [address] [place] [address] 38184 Protein [Mass/Vol] 5.9 g/dL Low 6.0-8.0 [facility] Comment on above: Performed By: #### C BCA, CMP #### [facility] ([id number]) [address] [place] [address] 25774 Sodium [Moles/Vol] 139 mmol/L Normal 134-146 [facility] Comment on above: Performed By: #### C BCA, CMP #### [facility] ([id number]) [address] [place] [address] 74860 Urea nitrogen [Mass/Vol] 15 mg/dL Normal 5-23 [facility] Comment on above: Performed By: #### C BCA, CMP #### [facility] ([id number]) [address] [place] [address] 08775 Lacho 06-25-2024 L Specimen: [id number] Received: 06/27/24 Status: WILBER Req Num: [id number] Spec Type: Surgical Subm Dr: Radha Tomas MD Tissues: A Placenta - 3rd Trimester (Greater than 28 weeks) (PLACENTA) Procedures: HE/3, Gross/Micro L5 Age/ Patient Sex Location Account Attending Physician Sabrina Velasquez 34/F LABELL [id number] Radha Tomas MD SPEC NUM: [id number] RECD: 06/27/24 STATUS: WILBER REQ NUM: [id number] MELISSA: 06/25/[address]: Radha Tomas MD ENTERED: 06/27/24 [facility] DR: Digna Hinojosa SPEC TYPE: Surgical DEPT: SHREYA GUIDO ORDERED: [...] cord, has a trimmed weight -------- Specimen: [id number] Received: 06/27/24 Status: WILBER Boateng Num: [id number] Spec Type: Surgical Subm Dr: Radha Tomas MD Tissues: A Placenta - 3rd Trimester (Greater than 28 weeks) (PLACENTA) Procedures: /3, Gross/Micro L5 -------- Patient: Sabrina Velasquez [id number] (Continued) -------- Specimen: [id number] Received: 06/27/24 (Continued) Gross Description (Continued) Signed (signature on file) Flavia Nicholson MD 06/30/24 1712 -------- Specimen: [id number] Received: 06/27/24 Status: WILBER Boateng Num: [id number] Spec Type: Surgical Subm Dr: Radha Tomas MD Tissues: A Placenta - 3rd Trimester (Greater than 28 weeks) (PLACENTA) Procedures: HE/3, Gross/Micro L5 -------- Patient: Sabrina Velasquez [id number] (Continued) -------- Specimen: [id number] Received: 06/27/24 (Continued) Gross Description (Continued) of 322 grams. Summary of sections: A1: umbilical cord at end and membrane roll including possible site of rupture A2: umbilical cord at placental end and parenchyma adjacent to cord insertion site A3: random mid-zonal section CPT Codes 99834 -------- -------- Specimen: [id number] Received: 06/27/24-1252 Status: WILBER Boateng Num: [id number] Spec Type: Surgical Subm Dr: Radha Tomas MD Tissues: A Placenta - 3rd Trimester (Greater than 28 weeks) (PLACENTA) Procedures: HE/3, Gross/Micro L5 -------- Patient: Sabrina Velasquez [id number] (Continued) -------- Signed (signature on file) Flavia Nicholson MD 06/30/24 1712 Normal [facility] VERIFICATIONon 020 ABO and Rh group Nom (Bld) A Negative [facility] ABO and Rh group Nom (Bld) ABO/Rh Verification [facility] BMP 07-14-2020 Anion gap [Moles/Vol] 6 mmol/L Low 10 - 20 mmol/L [facility] Calcium [Mass/Vol] 9.0 mg/dL 8.4 - 10. 2 mg/dL [facility] Chloride [Moles/Vol] 113 mmol/L High 98 - 108 mmol/L [facility] Creatinine [Mass/Vol] 0.64 mg/dL 0.40 - 1.10 [facility] GFR/1.73 sq M predicted among non-blacks MDRD (S/P/Bld) [Vol rate/Area] The eGFR should be used for monitoring renal function only and not for medication dosing. [facility] GFR/1.73 sq M.predicted CKD-EPI (S/P/Bld) [Vol rate/Area] 122 >=60 mL/min/1.[address] [facility] Glucose [Mass/Vol] 71 mg/dL 65 - 99 mg/dL [facility] HCO3 [Moles/Vol] 28 mmol/L 21 - 32 mmol/L [facility] Potassium [Moles/Vol] 3.9 mmol/L 3.5 - 5.1 mmol/L [facility] Sodium [Moles/Vol] 143 mmol/L 135 - 145 mmol/L [facility] Urea nitrogen [Mass/Vol] 8 mg/dL 8 - 25 mg/dL [facility] Urea nitrogen/Creatinine [Mass ratio] 12.5 mg/mg [facility] CBC WITH AUTO DIFFERENTIALon 07-14-2020 Basophils (Bld) [#/Vol] 0.03 10*3/uL [facility] Basophils/100 WBC (Bld) 0.4 % [facility] Eosinophils (Bld) [#/Vol] 0.10 10*3/uL [facility] Eosinophils/100 WBC (Bld) 1.5 % [facility] Erythrocyte distribution width (RBC) [Entitic vol] 12.3 % 11.6 - 14.8 % [facility] Hematocrit (Bld) [Volume fraction] 39.2 % 36 - 46 % [facility] Hemoglobin (Bld) [Mass/Vol] 13.6 g/dL 12 - 16 g/dL [facility] Immature granulocytes (Bld) [#/Vol] 0.02 10*3/uL [facility] Immature granulocytes/100 WBC (Bld) 0.30 % [facility] Comment on above: The IG parameter is the percentage of metamyelocytes, myelocytes and promyelocytes. An immature granulocyte count (IG) of 1% or more suggests the possibility of infection, an IG count of 3% is very likely related to an infection. Lymphocytes (Bld) [#/Vol] 1.95 10*3/uL [facility] Lymphocytes/100 WBC (Bld) 29.2 % [facility] MCH (RBC) [Entitic mass] 30.4 pg 26 - [address] [facility] MCHC (RBC) [Mass/Vol] 34.7 g/dL 31 - 37 g/dL [facility] MCV (RBC) [Entitic vol] 87.7 fL 80 - [address] [facility] Monocytes (Bld) [#/Vol] 0.48 10*3/uL [facility] Monocytes/100 WBC (Bld) 7.2 % [facility] Neutrophils (Bld) [#/Vol] 4.09 10*3/uL [facility] Neutrophils/100 WBC (Bld) 61.4 % [facility] Nucleated RBC (Bld) [#/Vol] 0.00 10*3/uL [facility] Nucleated RBC/100 WBC (Bld) [Ratio] 0.0 % [facility] Platelet mean volume (Bld) [Entitic vol] 11.8 fL 9.4 - 12.[address] [facility] Platelets (Bld) [#/Vol] 151 10*3/uL [facility] RBC (Bld) [#/Vol] 4.47 10*6/uL [facility] ealth WBC (Bld) [#/Vol] 6.67 10*3/uL [facility] Otheron 07-14-2020 Extra Tube Hold for add-ons. [facility] Comment on above: Auto resulted. Interpretation and review of laboratory results Abnormal [facility] Type and Screenon 07-14-2020 ABO and Rh group Nom (Bld) A Negative [facility] Blood group antibody screen Ql Negative [facility] Specimen Expires 07/17/2020 23:[address] [facility] URINALYSISon 07-14-2020 Bacteria Auto Ql (U) None Seen None Seen /hpf [facility] Bilirubin Ql (U) Negative Negative [facility] th Clarity Refractometry automated (U) Clear Clear [facility] Color (U) Yellow Colorless, Yellow [facility] Epithelial cells.squamous Auto (Urine sed) [#/Area] [address] [facility] Glucose Auto test strip (U) [Mass/Vol] Negative Negative mg/dL [facility] Hemoglobin Auto test strip Ql (U) Moderate Abnormal Negative [facility] Interpretation and review of laboratory results Abnormal [facility] Ketones (U) [Mass/Vol] Negative Negative mg/dL [facility] Leukocyte esterase Auto test strip Ql (U) Trace Abnormal Negative [facility] Mucus Auto (Urine sed) [#/Area] Rare None Seen, Rare /lpf [facility] Nitrite Auto test strip Ql (U) Negative Negative [facility] pH (U) 7.0 [pH] [facility] Protein (U) [Mass/Vol] Negative Negative mg/dL [facility] RBC Auto (Urine sed) [#/Area] 2 [facility] Specific gravity (U) [Rel density] 1.011 [facility] Urobilinogen (U) [Mass/Vol] <2.0 <2.0 mg/dL [facility] WBC Auto (Urine sed) [#/Area] 2 [facility] Microscopic examination is performed on all urinalysis samples and only positive findings are reported. The test for blood on the chemical analytic portion of urinalysis may also be positive due to hemoglobinuria and myoglobinuria and if red blood cells are present they are quantified by microscopic examination. [facility] OB 1ST TRIMESTER WITH TRA NSVAGINAL TRANSABDOMINAL [...] of is believed most likely. [facility] Workstation ID: [id number] Dictated by: SHAY FERNANDEZ on Sat Jul 14, 2020 12:00:51 PM EDT Transcribed by: PREETI VILLALTA on Sat Jul 14, 2020 12:07:08 PM EDT Finalized by: SHAY FERNANDEZ on Sat Jul 14, 2020 12:57:25 PM EDT Normal [facility] Comment on above: Order Comment: Injur [...] limits. No free peritoneal fluid is seen. [facility] 1. Normal study. 2. With a positive beta hCG, this is a of unknown location. Clinical correlation including serial beta hCG levels is needed differentiate the possibilities which include extremely early , spontaneous of recent , or ectopic gestation which is not directly visualized. With a history of bleeding, spontaneous of is believed most likely. [facility]veronica Workstation ID: [id number] [facility] Interface, Rad In Roblesi Speechq - 07/14/2020 [...] of is believed most likely. [facility] Workstation ID: [id number] [facility] VAGINITIS DNA PROBESon 07-14 Olga sp DNA Probe+sig amp Ql (Vag fld) Negative Negative [facility] G. vaginalis DNA Probe+sig amp Ql (Vag fld) Negative Negative [facility] Interpretation and review of laboratory results Normal [facility] T. vaginalis DNA Probe+sig amp Ql (Vag fld) Negative Negative [facility] hCG, Blood, QUANTitativeon 0 07-14-2020 Beta HCG ( test) Ql (U) Males and non females: <5 mIU/mL Females during : 3-4 weeks 9-130 mIU/mL 4-5 weeks 75-2600 mIU/mL 5-6 weeks 850-20,800 mIU/mL 6-7 weeks 4000-100,200 mIU/mL 7-12 weeks 11,500-289,000 mIU/mL 12-16 weeks 18,300-137,000 mIU/mL 16-29 weeks 1,400-53,000 mIU/mL 29-41 weeks 940-60,000 mIU/mL [facility] HCG Qn 438 m[IU]/mL High [facility] Basic Metabolic Panelon 04-0 Anion gap [Moles/Vol] 7.0 mmol/L Normal 6.0-18.0 [facility] Comment on above: Performed By: #### 2 4321-2, 65961-9, 89640-5f7, 1987- ####[facility] [address], [place] Calcium [Mass/Vol] 8.6 mg/dL Low 8.9-10.3 [facility] Comment on above: Performed By: #### 2 4321-2, 75932-0, 41721-9v3, 1988-03 ####[facility] [address], [place] Chloride [Moles/Vol] 107 mmol/L Normal 98-107 [facility] Comment on above: Performed By: #### 2 4321-2, 35116-0, 02009-7f9, 1988-03 ####[facility] [address], [place] CO2 [Moles/Vol] 24 mmol/L Normal 22-32 [facility] Comment on above: Performed By: #### 2 4321-2, 82611-9, 78178-1f2, 1988-03 ####[facility] [address], [place] Creatinine [Mass/Vol] 0.67 mg/dL Normal 0.60-1.30 [facility] Comment on above: Performed By: #### 2 4321-2, 25419-0, 93823-0t7, 1988-03 ####[facility] [address], [place] Glucose [Mass/Vol] 105 mg/dL High 70-99 [facility] Comment on above: Result Comment: U pdated ADA Reference Range A normal fasting glucose concentration is less than 100 mg/dL. An impaired fasting glucose concentration is 100-125 mg/dL. A provisional diagnosis of diabetes mellitus can be made when a fasting glucose concentration is greater than 125 mg/dL. Performed By: #### 2 4321-2, 76421-1, 64848-7z0, 1988-03 ####[facility] [address], [place] Potassium [Moles/Vol] 4.1 mmol/L Normal 3.6-5.1 [facility] Comment on above: Performed By: #### 2 4321-2, 06149-6, 85839-0x5, 1988-03 ####[facility] [address], [place] Sodium [Moles/Vol] 138 mmol/L Normal 136-145 [facility] Comment on above: Performed By: #### 2 4321-2, 49104-1, 83288-1l8, 1988-03 ####[facility] [address], [place] Urea nitrogen (BldV) [Mass/Vol] 8 mg/dL Normal 8-20 [facility] Comment on above: Performed By: #### 2 4321-2, 64502-3, 72259-3y7, 1988-03 ####[facility] [address], [place] C-Reactive Proteinon 019 CRP [Mass/Vol] 3.2 mg/dL High <1.0 [facility] Comment on above: Performed By: #### 2 4321-2, 56680-0, 56706-3y0, 1988-03 ####[place] [address], [place] CBCon 03-01-2019 Erythrocyte distribution width (RBC) [Entitic vol] 14.3 % Normal 11.0-14.8 [facility] Comment on above: Performed By: #### 2 4317-0 ####[place] [address], [place] Hematocrit (Bld) [Volume fraction] 37.5 % Normal 35.0-45.0 [facility] Comment on above: Performed By: #### 2 4317-0 ####[place] [address], [place] Hemoglobin (Bld) [Mass/Vol] 12.5 g/dL Normal 12.0-16.0 [facility] Comment on above: Performed By: #### 2 4317-0 ####[place] [address], [place] MCH (RBC) [Entitic mass] 28.1 Picograms Normal 27.0-34.0 [facility] Comment on above: Performed By: #### 2 4317-0 ####[place] [address], [place] MCHC (RBC) [Mass/Vol] 33.3 g/dL Normal 32.0-36.0 [facility] Comment on above: Performed By: #### 2 4317-0 ####[facility] [address] [place], [place] MCV (RBC) [Entitic vol] 84.6 fL Normal 80.0-97.0 [facility] Comment on above: Performed By: #### 2 4317-0 ####[address] [place] [address] [place], [place] Platelet mean volume (Bld) [Entitic vol] 10.5 fL Normal 6.2-12.1 [facility] Comment on above: Performed By: #### 2 4317-0 ####[address] [place] [address] [place], [place] Platelets (Bld) [#/Vol] 231 thou/mcL Normal 142-424 [facility] Comment on above: Performed By: #### 2 4317-0 ####[address] [place], [place] RBC (Bld) [#/Vol] 4.43 million/mcL Normal 3.80-5.10 [facility] Comment on above: Performed By: #### 2 4317-0 ####[address] [place], [place] WBC (Bld) [#/Vol] 12.7 thou/mcL High 4.6-10.2 [facility] Comment on above: Performed By: #### 2 4317-0 ####[address] [place], [place] GFRaaon 03-01-2019 GFR/1.73 sq M predicted among blacks MDRD (S/P/Bld) [Vol rate/Area] mL/min/{1.73_m2} Normal [facility] Comment on above: Result Comment: The MDRD equation has not been validated for those over 70 years, women, patients with serious co-morbid conditions, or with extremes of body size, muscle mass of nutritional status. Performed By: #### 2 4321-2, 41610-6, 83362-9v8, 1987-5 ####[facility] [address], [place] GFRbbon 03-01-2019 GFR/1.73 sq M predicted among non-blacks MDRD (S/P/Bld) [Vol rate/Area] mL/min/{1.73_m2} Normal [facility] Comment on above: Performed By: #### 2 4321-2, 97540-3, 56852-1y5, 1988-03 ####[facility] [address], [place] Glucose POCT (Uploaded)on Glucose [Mass/Vol] 87 mg/dL Normal 70-99 [facility] Comment on above: Result Comment: Nadia tment ranges and critical values established by Patient Care Services. All follow-up actions were taken by Patient Care Services. Performed By: #### 2 430-8 ####[facility] Glucose [Mass/Vol] 93 mg/dL Normal 70-99 [facility] Comment on above: Result Comment: Nadia tment ranges and critical values established by Patient Care Services. All follow-up actions were taken by Patient Care Services. Performed By: #### 2 430-8 ####[facility] Glucose [Mass/Vol] 95 mg/dL Normal 70-99 [facility] Comment on above: Result Comment: Naida tment ranges and critical values established by Patient Care Services. All follow-up actions were taken by Patient Care Services. Performed By: #### 2 430-8 ####[facility] Glucose [Mass/Vol] 123 mg/dL High 70-99 [facility] Comment on above: Result Comment: Nadia [...] SABRINA VELASQUEZ/Sex: 1990 Female Med Rec #: [id number] Physician: Marcellus Driscoll MD Financial #: [id number] Pt. Type: I Room/Bed: 7T47 Admit/Disch: 02/28/19 08:18:00 - Institution: [facility] OR Main PACU I Case Times [...] 15:45 Sherrie Rendon RN 03/01/19 07:03 Normal [facility] Patient Summaryon 03-01-2019 Patient Summary PATIENT DISCHARGE INSTRUCTIONS If you are having an emergency and are not able to reach your physician, CALL 911 or go to the nearest emergency room and take this document with you. [facility] 03/01/19 18:42 [address] [place]. [address] PATIENT INFORMATION Name: SABRINA VELASQUEZ Address: [address] [place] [id number] Age: 29 Years Phone: [phone] : 1990 12:00 MRN: [id number] Sex: Female Race: White Ethnicity: Declined Admitted From: Clinic or [facility] Medical Service: Surgery Nurse Unit/Bed: (NE) 7T 0U79-09 Admit Date: 02/28/2019 08:18 PCP: Omid Killian MD PHYSICIANS INVOLVED WITH CARE ------ Attending Physicians: Marcellus Driscoll MD - Surgery Admitting Physician: Marcellus Driscoll MD - Surgery Primary Care Physician:Omid Killian MD, - Consults: None found FOLLOW-UP APPOINTMENTS: Provider: Specialty: Address: Date: Marcellus Driscoll MD Surgery [address] [facility] [address] [place] [phone] (1) 03/08/19 01:45 pm Comment: Please follow-up at your pre-scheduled appointment. Provider: Specialty: Address: Date: Omid Killian MD [address] [place] [id number] (1) Follow-up as needed Provider: Specialty: Address: Date: Post-Op Nutrition Class [id number] 03/22/19 Comment: Please call [phone] for more information or to re-schedule. ALLERGIES: [...] doses are changed, or new medications (including jwkn-emq-ycsbujz products) are added. Ask your doctor if [...] diet. Follow recommendations from your surgeon and front desk auxiliary regarding you diet. Refer to nutrition information [...] doctor before taking any supplements, herbal or puav-siw-zjiggzx medications. Call your physician if any questions [...] suicide hotline, anytime day or night, at 0-549-950-MORU. Important information about accessing your health information through the [facility] patient portal If you initiated the self-registration process for [facility] during your stay, please check your personal email for an invitation to enroll in [facility] and complete the steps outlined in the email. If you would prefer to enroll while in the hospital, ask a member of your care team. We would be happy to assist you. If you have already enrolled in [facility], go to [email or web address] to login and access your health information. Thank you for choosing [facility]. PATIENT EDUCATION Gastric Bypass Surgery, Care After [...] of caffeine can cause dehydration. ?? A front desk auxiliary may also give you specific instructions. ?? [...] 06/30/2005 Document Revised: 12/07/2015 Document Reviewed: 04/08/2011 [employer] Interactive Patient Education ??2016 [employer] Gastric Bypass Discharge Instructions 1. Follow-up [...] dietitian for post-operative class at 2 weeks [phone] ? Call Bariatric Nurse Navigator [phone] with any further questions or concerns Call [phone] if you have difficulty breathing or chest [...] provided above is for informational purposes only. [facility] does not promote, condone or endorse all the values expressed herein. The values or opinions they express with regard to the use of artificial contraception are not consistent with the teachings of the [employer] Zoroastrian[employer] and the Ethical and Yarsanism Directives for [employer] [facility]. If any of these instructions are different from what your doctor tells you, follow your doctor's orders. If you smoke, you should quit. For more information, talk with your doctor or call [phone] ( ). PATIENT DISCHARGE INSTRUCTION Signature Page for: SABRINA VELASQUEZ Date/Time: 03/01/2019 18:42:02 A Clinician has explained the information on my discharge instructions and has provided me with a copy. My questions have been answered to my satisfaction. Patient Signature Date/Time Responsible Party Date/Time Relationship to Patient Clinician Signature Date/Time Normal [facility] Glucose POCT (Uploaded)on Glucose [Mass/Vol] 140 mg/dL High [address] [place] [address] Comment on above: Result Comment: Nadia tment ranges and critical values established by Patient Care Services. All follow-up actions were taken by Patient Care Services. Performed By: #### 2 430-8 ####[facility] Glucose [Mass/Vol] 127 mg/dL High [address] Comment on above: Result Comment: Nadia tment ranges and critical values established by Patient Care Services. All follow-up actions were taken by Patient Care Services. Performed By: #### 2 430-8 ####[facility] Glucose [Mass/Vol] 141 mg/dL High [address] [place] [address] Comment on above: Result Comment: Nadia tment ranges and critical values established by Patient Care Services. All follow-up actions were taken by Patient Care Services. Performed By: #### 2 430-8 ####[facility] Glucose [Mass/Vol] 164 mg/dL High [address] [place] [address] Comment on above: Result Comment: Nadia tment ranges and critical values established by Patient Care Services. All follow-up actions were taken by Patient Care Services. Performed By: #### 2 430-8 ####[facility] OR Nursingon 02-28-2019 OR Nursing [facility] OR Nursing Record Summary Primary Physician: Marcellus Driscoll MD Finalized Date/Time: 02/28/19 14:10:30 Pt. Name: SABRINA VELASQUEZ/Sex: 1990 Female Med Rec #: [id number] Physician: Marcellus Driscoll MD Financial #: [id number] Pt. Type: I Room/Bed: / Admit/Disch: 02/28/19 [...] 3 Case Attendee Yamila URBINA , Marcellus Ramsay [facility] DO , Jacob Dorado CRNA , Kenny Smallwood Role Performed Primary Surgeon Anesthesiologist Nurse Intervention Teacher Time In 02/28/19 11:17:00 02/28/19 11:17:00 02/28/19 [...] Guaman RN , Litzy Garcia Role Performed jig and fixture builder RN First Scrub Time In 02/28/19 11:17:00 02/28/19 11:17:00 02/28/19 11:17:00 Time Out 02/28/19 14:05:00 02/28/19 14:05:00 02/28/19 14:05:00 Procedure Bypass Gastric Bypass Gastric Bypass Gastric Robot(N/A) Robot(N/A) Robot(N/A) Attendee Comment LUNCH [id number] LUNCH 2587-3810 lunch 2809-4490 Relief Reason Last Modified By: Abner MARTIN , Disha Levine RN , Disha Levine RN , Disha Aiken 02/28/19 14:09:25 02/28/19 14:09:25 02/28/19 14:09:25 Entry 7 Entry 8 Entry 9 Case Attendee Zoroastrianism RN , Swetha Rao Case, Attendee Other Role Performed jig and fixture builder First Scrub Straight Knife Machine Cutter Time In 02/28/19 11:48:00 02/28/19 11:57:00 02/28/19 11:17:00 Time Out 02/28/19 12:40:00 02/28/19 12:53:00 02/28/19 14:05:00 Procedure Bypass Gastric Bypass Gastric Bypass Gastric Robot(N/A) Robot(N/A) Robot(N/A) Attendee Comment [place] MIRANDA - INTUITIVE Relief Reason Last Modified By: Abner MARTIN , Disha Levine RN , Disha Duke RN 02/28/19 14:09:25 02/28/19 14:09:25 02/28/19 14:09:25 [facility] OR General Case Bus Monitor 1 OR CO W 11 ASA Class [...] Arrival? No 16FR TEMP SEN W/URINE METER [id number] Inserted By Rowena MARTIN , Oly Moreno [...] Grounding Pad Thigh right lateral Applied By Oyl Guaman RN Location Last Modified By: Disha [...] Dressing Dressing/Packing ADHESIVE SKIN DERMABOND Type ADV BX [id number] Last Modified By: Disha Levine RN 02/28/19 13:22:38 [facility] OR Temperature Regulation Entry 1 Unit ID [id number] Site UPPER BODY Last Modified By: Gissell [...] By: Disha Levine RN 02/28/19 14:10 Normal [facility] PreOp Nursingon 02-28-2019 PreOp Nursing [facility] PreOp Nursing Record Summary Primary Physician: Marcellus Driscoll MD Finalized Date/Time: 02/28/19 12:08:12 Pt. Name: SABRINA VELASQUEZ/Sex: 1990 Female Med Rec #: [id number] Physician: Marcellus Driscoll MD Financial #: [id number] Pt. Type: I Room/Bed: / Admit/Disch: 02/28/19 [...] By: Gissell Joshi RN 02/28/19 12:08 Normal [facility] CBC with Differentialon 01-29 Basophils (Bld) [#/Vol] 0.00 thou/mcL Normal 0.00-0.20 [facility] Comment on above: Performed By: #### 5 7021-8 #### [facility] [address], [place] Basophils/100 WBC (Bld) 0.4 % Normal 0.0-2.0 [facility] Comment on above: Performed By: #### 5 7021-8 #### [facility] [address], [place] Eosinophils (Bld) [#/Vol] 0.10 thou/mcL Normal 0.00-0.70 [facility] Comment on above: Performed By: #### 7021-8 #### [facility] [address], [place] Eosinophils/100 WBC (Bld) 1.5 % Normal 0.0-7.0 [facility] Comment on above: Performed By: #### 7021-8 #### [facility] [address], [place] Erythrocyte distribution width (RBC) [Entitic vol] 14.8 % Normal 11.0-14.8 [facility] Comment on above: Performed By: #### 7021-8 #### [facility] [address] [place], [place] Hematocrit (Bld) [Volume fraction] 41.4 % Normal 35.0-45.0 [facility] Comment on above: Performed By: #### 7021-8 #### [facility] [address], [place] Hemoglobin (Bld) [Mass/Vol] 13.7 g/dL Normal 12.0-16.0 [facility] Comment on above: Performed By: #### 5 7021-8 #### [facility] [address] [place], [place] Lymphocytes (Bld) [#/Vol] 1.80 thou/mcL Normal 1.00-4.80 [facility] Comment on above: Performed By: #### 5 7021-8 #### [facility] [address] [place], [place] Lymphocytes/100 WBC (Bld) 21.5 % Low 22.0-44.0 [facility] Comment on above: Performed By: #### 5 7021-8 #### [facility] [address] [place], [place] MCH (RBC) [Entitic mass] 28.6 Picograms Normal 27.0-34.0 [facility] Comment on above: Performed By: #### 5 7021-8 #### [facility] [address] [place], [place] MCHC (RBC) [Mass/Vol] 33.2 g/dL Normal 32.0-36.0 [facility] Comment on above: Performed By: #### 7021-8 #### [facility] [address], [place] MCV (RBC) [Entitic vol] 86.0 fL Normal 80.0-97.0 [facility] Comment on above: Performed By: #### 7021-8 #### [facility] [address] [place], [place] Monocytes (Bld) [#/Vol] 0.60 thou/mcL Normal 0.00-0.90 [facility] Comment on above: Performed By: #### 7021-8 #### [facility] [address] [place], [place] Monocytes/100 WBC (Bld) 7.5 % Normal 0.0-12.0 [facility] Comment on above: Performed By: #### 7021-8 #### [facility] [address] [place] Neutrophils (Bld) [#/Vol] 5.90 thou/mcL Normal 1.80-7.70 [facility] Comment on above: Performed By: #### 5 7021-8 #### [place] [address] [place], [place] Neutrophils/100 WBC (Bld) 69.1 % Normal 40.0-70.0 [facility] Comment on above: Performed By: #### 5 7021-8 #### [facility] [address], [place] Platelet mean volume (Bld) [Entitic vol] 11.3 fL Normal 6.2-12.1 [facility] Comment on above: Performed By: #### 5 7021-8 #### [facility] [address] [place], [place] Platelets (Bld) [#/Vol] 194 thou/mcL Normal 142-424 [facility] Comment on above: Performed By: #### 5 7021-8 #### [facility] [address], [place] RBC (Bld) [#/Vol] 4.81 million/mcL Normal 3.80-5.10 [facility] Comment on above: Performed By: #### 5 7021-8 #### [facility] [address] [place] WBC (Bld) [#/Vol] 8.5 thou/mcL Normal 4.6-10.2 [facility] Comment on above: Performed By: #### 5 7021-8 #### [facility] [address] [place] Comprehensive Metabolic Pane lacho 2019 Albumin [Mass/Vol] 3.3 g/dL Low 3.5-4.8 [facility] Comment on above: Performed By: #### 2 4323-8, 31120-4g3, 28804-1 ####[facility] [address], [place] ALP [Catalytic activity/Vol] 72 Units/L Normal 32-91 [facility] Comment on above: Performed By: #### 2 4323-8, 28479-5x7, 66120-1 ####[facility] [address] [place] ALT [Catalytic activity/Vol] 18 Units/L Normal 14-63 [facility] Comment on above: Performed By: #### 2 4323-8, 56895-6u8, 73618-1 ####[facility] [address] [place] Anion gap [Moles/Vol] 10.0 mmol/L Normal 6.0-18.0 [facility] Comment on above: Performed By: #### 2 4323-8, 62790-2m6, 69704-8 ####[facility] [address] [place] AST [Catalytic activity/Vol] 17 Units/L Normal 15-41 [facility] Comment on above: Performed By: #### 2 4323-8, 93456-2u1, 91307-4 ####[facility] [address] [place] Bilirubin [Mass/Vol] 0.7 mg/dL Normal 0.3-1.2 [facility] Comment on above: Performed By: #### 2 4323-8, 80609-7w4, 57730-4 ####[facility] [address] [place] Calcium [Mass/Vol] 8.5 mg/dL Low 8.9-10.3 [facility] Comment on above: Performed By: #### 2 4323-8, 13349-9y1, 88540-2 ####[facility] [address] Chloride [Moles/Vol] 104 mmol/L Normal 98-107 [facility] Comment on above: Performed By: #### 2 4323-8, 67422-8u2, 82655-2 ####[facility] [address] [place] CO2 [Moles/Vol] 22 mmol/L Normal 22-32 [facility] Comment on above: Performed By: #### 2 4323-8, 23366-5q2, 41991-4 ####[facility] [address], [place] Creatinine [Mass/Vol] 0.79 mg/dL Normal 0.60-1.30 [facility] Comment on above: Performed By: #### 2 4323-8, 48689-1l4, 75112-2 ####[facility] [address] [place] Glucose [Mass/Vol] 93 mg/dL Normal 70-99 [facility] Comment on above: Result Comment: U pdated ADA Reference Range A normal fasting glucose concentration is less than 100 mg/dL. An impaired fasting glucose concentration is 100-125 mg/dL. A provisional diagnosis of diabetes mellitus can be made when a fasting glucose concentration is greater than 125 mg/dL. Performed By: #### 2 4323-8, 60244-3d2, 83643-0 ####[facility] [address] [place] Potassium [Moles/Vol] 4.1 mmol/L Normal 3.6-5.1 [facility] Comment on above: Performed By: #### 2 4323-8, 89959-0s7, 37683-8 ####[facility] [address], [place] Protein [Mass/Vol] 6.0 g/dL Low 6.1-7.9 [facility] Comment on above: Performed By: #### 2 4323-8, 13255-1s9, 06285-9 ####[facility] [address], [place] Sodium [Moles/Vol] 136 mmol/L Normal 136-145 [facility] Comment on above: Performed By: #### 2 4323-8, 61429-8x0, 92441-6 ####[address] [address] [place], [place] Urea nitrogen (BldV) [Mass/Vol] 13 mg/dL Normal 8-20 [facility] Comment on above: Performed By: #### 2 4323-8, 24732-6r2, 13836-0 ####[address] [place], [place] GFRaaon 2019 GFR/1.73 sq M predicted among blacks MDRD (S/P/Bld) [Vol rate/Area] mL/min/{1.73_m2} Normal [facility] Comment on above: Result Comment: The MDRD equation has not been validated for those over 70 years, women, patients with serious co-morbid conditions, or with extremes of body size, muscle mass of nutritional status. Performed By: #### 2 4323-8, 60214-7v9, 01617-3 ####[facility] [address] [place], [place] GFRbbon 2019 GFR/1.73 sq M predicted among non-blacks MDRD (S/P/Bld) [Vol rate/Area] mL/min/{1.73_m2} Normal [facility] Comment on above: Performed By: #### 2 4323-8, 82346-9s6, 49300-1 ####[facility] [address], [place] Glycohemoglobin (HGB A1C) Luther guardado 2019 HbA1c (Bld) [Mass fraction] 5.0 % tl hgb Normal <5.6 [facility] Comment on above: Result Comment: U pdated ADA Reference Range HbA1c values of 5.7-6.4 percent indicate an increased risk for developing diabetes mellitus. HbA1c values greater than or equal to 6.5 percent are diagnostic of diabetes mellitus. For diagnosis of diabetes in individuals without unequivocal hyperglycemia, results should be confirmed by repeat testing. Performed By: #### 4 549-2 ####[facility], [address] [place] [address]. Partial Thromboplastin Time (aPTT)on 2019 aPTT Coag (PPP) [Time] 29.6 Sec Normal 23.6-35.3 [facility] Comment on above: Performed By: #### 3 173-2, 5902-2 ####[facility], [address] [place] [address]. Prothrombin Timeon 9 INR Coag (Bld) [Relative time] 1.00 {INR} Normal [facility] Comment on above: Result Comment: The recommended therapeutic INR range for most cardiac indications is 2.0-3.0. For high intensity therapy(ie.mechanical heart valves), the recommended range is 2.5-3.5. Performed By: #### 3 173-2, 5902-2 ####[facility], [address] [place] [address]. PT Coag (PPP) [Time] 11.5 Sec Normal 9.3-12.4 [facility] Comment on above: Performed By: #### 3 173-2, 5902-2 ####[facility], [address] [place] [address]. XR Chest 2 Viewson 9 XR Chest 2 views Two-view chest exam Indication: pre-op. Cough for the past week. COMPARISON: E 66.01 FINDINGS: The lungs are clear and the costophrenic angles are sharp. The cardiomediastinal silhouette and bones are normal. IMPRESSION: Normal chest. [place] thanks you for the opportunity to care for your patient. Workstation ID: [id number] FINAL REPORT Dictated By: Jean Hull MD 2019 08:47 Assigned Physician: Jean Hull MD Reviewed and Electronically Signed By: Jean Hull MD 2019 08:48 Transcribed by: GREGORY 2019 08:47 Technologist: SHAKA Carranza [facility] OR Nursingon 09-17-2018 OR Nursing [facility] OR Nursing Record Summary Primary Physician: Tristan Tate MD Finalized Date/Time: 09/17/18 07:39:53 Pt. Name: SABRINA VELASQUEZO.B./Sex: 1990 Female Med Rec #: [id number] Physician: Financial #: [id number] Pt. Type: I Room/Bed: / Admit/Disch: 09/16/18 13:46:00 - 09/16/18 15:20:00 Institution: [facility] Case Times Entry 1 Patient Times Patient In Room 09/16/18 14:20:00 Patient Out Room 09/16/18 14:30:00 Anesthesia Times Anes Start 09/16/18 14:18:00 Anes Stop 09/16/18 14:33:00 Surgical Times Start Time 09/16/18 14:26:00 Stop Time 09/16/18 14:28:00 Last Modified By: Sherrie Rendon RN 09/17/18 07:37:51 General Comments: ANESTHESIA TIME START AND STOP ADDED PER ANESTHESIA PAPER RECORD KEILA MARTIN [facility] Case Attendees Entry 1 Entry 2 Entry 3 Case Attendee Tristan Tate MD, CRNA , Charbel Wolf DO Role Performed Primary Surgeon Nurse Intervention Teacher Anesthesiologist Time In 09/16/18 14:20:00 09/16/18 14:20:00 09/16/18 14:20:00 Time Out 09/16/18 14:30:00 09/16/18 14:30:00 09/16/18 14:30:00 Procedure Egd_(N/A) Egd_(N/A) Egd_(N/A) Attendee Comment Relief Reason Last Modified By: Breanna RN , Afia Carlos RN , Afia Carlos RN , Afia 09/16/18 14:31:12 09/16/18 14:31:12 09/16/18 14:31:12 Entry 4 Entry 5 Case Attendee Breanna RN , Afia Bernabe RN , Rosalio Cohn jig and fixture builder Gym Teacher Time In 09/16/18 14:20:00 09/16/18 14:20:00 Time Out 09/16/18 14:30:00 09/16/18 14:30:00 Procedure Egd_(N/A) Egd_(N/A) Attendee Comment Relief Reason Last Modified By: Breanna RN , Afia Carlos RN , Afia 09/16/18 14:31:12 09/16/18 14:31:12 CO [facility] General Case Bus Monitor 1 OR CO W EN 02 ASA [...] By: Afia Carlos RN 09/16/18 14:05:22 [facility] Pain Assessment Entry 1 Pain Intensity [...] 07:39 Sherrie Rendon RN 09/17/18 07:39 Normal [facility] Post PACU Nursingon 09-17-20 18 Post PACU Nursing CO [facility] Ly PACU II Nursing Record Summary Primary Physician: Tristan Tate MD Finalized Date/Time: 09/17/18 07:40:27 Pt. Name: SABRINA VELASQUEZ./Sex: 1990 Female Med Rec #: [id number] Physician: Financial #: [id number] Pt. Type: I Room/Bed: / Admit/Disch: 09/16/18 13:46:00 - 09/16/18 15:20:00 Institution: [facility] Ly PACU II Case Times Entry 1 In PACU II 09/16/18 14:34:00 Ready for PACU II 09/16/18 14:49:00 Discharge Discharge from PACU 09/16/18 15:20:00 II Last Modified By: Rocio Turcios RN 09/16/18 15:26:17 GAL[facility] Ly PACU II Case Attendees Entry 1 Case Attendee Rocio Turcios RN Role Suki RN Last Modified By: Rocio Turcios RN 09/16/18 15:04:00 Finalized By: Sherrie Rendon RN Document Signatures Signed By: Sherrie Rendon RN 09/17/18 07:35 Sherrie Rendon RN 09/17/18 07:40 Normal [facility] PreOp Nursingon 09-17-2018 PreOp Nursing CO [facility] PreOp Nursing Record Summary Primary Physician: Tristan Tate MD Finalized Date/Time: 09/17/18 07:36:42 Pt. Name: SABRINA VELASQUEZ /Sex: 1990 Female Med Rec #: [id number] Physician: Financial #: [id number] Pt. Type: I Room/Bed: / Admit/Disch: 09/16/18 [...] 07:36 Sherrie Rendon RN 09/17/18 07:36 Normal [facility] Patient Summaryon 09-16-2018 Patient Summary PATIENT DISCHARGE INSTRUCTIONS If you are having an emergency and are not able to reach your physician, CALL 911 or go to the nearest emergency room and take this document with you. [facility] 09/16/18 14:45 [address] [place]. [address] PATIENT INFORMATION Name: SABRINA VELASQUEZ Address: [address] [place] [address] Age: 28 Years Phone: [phone] : 1990 12:00 MRN: [facility])-[id number] Sex: Female Race: White Ethnicity: Declined Admitted From: Clinic or [facility] Medical Service: Surgery Nurse Unit/Bed: (NE) [facility] N/A Admit Date: 09/16/2018 13:46 PCP: Omid Killian MD PHYSICIANS INVOLVED WITH CARE ------ Attending Physicians: Tristan Tate MD - Surgery [...] doses are changed, or new medications (including cpsq-xiz-zrumfha products) are added. Ask your doctor if [...] suicide hotline, anytime day or night, at 7-792-302-EMFQ. Important information about accessing your health information through the [place] [facility] patient portal If you initiated the self-registration process for [employer] during your stay, please check your personal email for an invitation to enroll in [employer] and complete the steps outlined in the email. If you would prefer to enroll while in the hospital, ask a member of your care team. We would be happy to assist you. If you have already enrolled in [employer], go to [email or web address] to login and access your health information. Thank you for choosing [employer]. PATIENT EDUCATION Esophagogastroduodeno scopy, Care After Refer [...] 11/02/2013 Document Revised: 12/07/2015 Document Reviewed: 11/02/2013 [employer] Interactive Patient Education ?2016 [employer] VIRUSES OR BACTERIA: WHAT'S GOT YOU [...] Relationship to Patient Clinician Signature Date/Time Normal [facility] ECG 12 leadon 06-14-2018 Atrial Rate Invalid Interpretation Code [facility] [place] Invalid Interpretation Code [facility] P-R Interval Invalid Interpretation Code [facility] Q-T Interval Invalid Interpretation Code [facility] Q-T Interval (corrected) Invalid Interpretation Code [facility] QRS Duration Invalid Interpretation Code [facility] QTC Calculation (Bezet) Invalid Interpretation Code [facility] [place] Invalid Interpretation Code [facility] T [place] Invalid Interpretation Code [facility] Ventricular Rate Invalid Interpretation Code [facility] Vital Signs Date Time Vital Sign Value Performing Clinician Faci lit 03-30-2025 11:46-0400 Body mass index (BMI) [Ratio] 43.87 kg/m2 Arvind Mallory DO Work Phone: [facility] 03-30-2025 11:46-0400 Body weight 123.29 kg Arvind Mallory DO Work Phone: [facility] 03-30-2025 11:46-0400 Diastolic blood pressure 80 mm[Hg] Arvind Mallory DO Work Phone: [facility] 03-30-2025 11:46-0400 Systolic blood pressure 120 mm[Hg] Arvind Mallory DO Work Phone: [facility] 03-02-2025 12:04-0400 Body mass index (BMI) [Ratio] 44.22 kg/m2 Arvind Mallory DO Work Phone: [facility] 03-02-2025 12:04-0400 Body weight 124.29 kg Arvind Mallory DO Work Phone: [facility] 03-02-2025 12:04-0400 Diastolic blood pressure 76 mm[Hg] Arvind Mallory DO Work Phone: [facility] 03-02-2025 12:04-0400 Systolic blood pressure 124 mm[Hg] Arvind Mallory DO Work Phone: [facility] 08-16-2024 13:22-0400 Body mass index (BMI) [Ratio] 43.16 kg/m2 Arvind Mallory DO Work Phone: [facility] 08-16-2024 13:22-0400 Body weight 121.29 kg Arvind Mallory DO Work Phone: [facility] 08-16-2024 13:22-0400 Diastolic blood pressure 74 mm[Hg] Arvind Mallory DO Work Phone: [facility] 08-16-2024 13:22-0400 Systolic blood pressure 124 mm[Hg] Arvind Mallory DO Work Phone: [facility] 08-09-2024 13:21-0400 Body mass index (BMI) [Ratio] 43.42 kg/m2 Arvind Mallory DO Work Phone: [facility] 08-09-2024 13:21-0400 Body weight 122.02 kg Arvind Mallory DO Work Phone: [facility] 08-09-2024 13:21-0400 Diastolic blood pressure 74 mm[Hg] Arvind Mallory DO Work Phone: [facility] 08-09-2024 13:21-0400 Systolic blood pressure 118 mm[Hg] Arvind Mallory DO Work Phone: [facility] 07-14-2020 13:00-0400 BP Diastolic 78 mm[Hg] Alicia Hudson [facility] 07-14-2020 13:00-0400 BP Systolic 123 mm[Hg] Alicia Hudson [facility] 07-14-2020 13:00-0400 Pulse (Heart Rate) 55 /min Alicia Hudson [facility] 07-14-2020 13:00-0400 Pulse Oximetry 100 % Alicia Hudson [facility] 07-14-2020 10:06-0400 Body Temperature 98.8 [degF] Alicia Hudson [facility] 07-14-2020 10:04-0400 BMI (Body Mass Index) 43.58 kg/m2 Alicia Hudson [facility] 07-14-2020 10:04-0400 Body weight 122.[address] [facility] 07-14-2020 10:04-0400 Height 167.[address] [facility] 07-14-2020 10:04-0400 Respiratory Rate 16 /min Alicia Hudson [facility] 06-14-2018 09:160400 BMI (Body Mass Index) 63.24 kg[facility]m2 [facility] 06-14-2018 09:16-0400 BP Diastolic 84 mm[Hg] [facility] Demarcus [facility] 06-14-2018 09:16-0400 BP Systolic 128 mm[Hg] [facility] 06-14-2018 09:16-0400 Height 167.6 cm [facility] Tracy [facility] 06-14-2018 09:16-0400 Pulse (Heart Rate) 64 /min [facility] 06-14-2018 09:160400 Pulse Oximetry 98 % [facility] 06-14-2018 09:160400 Weight 177.72 kg [facility] Encounters Encounter Date Encounter Type Care Provider Facility Start: 04-26-2025 End: 04-26-2025 Clinisync Result Encounter Arvind Mallory DO Work Phone: [facility] Unsolicited Start: 04-26-2025 End: 04-26-2025 Clinisync Result Encounter Arvind Mallory DO Work Phone: [facility] Unsolicited Start: 03-30-2025 End: 03-30-2025 Office outpatient visit [...] Emergency department patient visit KAI Smallwood MARTY [facility] Start: 07-04-2024 End: 07-04-2024 ambulatory YESSICA GOVEA Not Available Start: 06-25-2024 End: 06-25-2024 ambulatory Radha Tomas [facility] Work Phone: Start: 06-25-2024 End: 06-25-2024 Departed Referred MD Radha Tomas Work Phone: [facility] Start: 06-21-2024 End: 06-21-2024 ambulatory YESSICA [...] Emergency department patient visit OMID [place] KILLIAN [facility] Start: 07-14-2020 End: 07-14-2020 Emergency department patient visit Alicia Hudson Work Phone: [facility] Emergency Department Comment on above: Threatened (Primary Dx) Start: 12-13-2018 End: 12-13-2018 Patient encounter procedure Lauren Rivera [facility] D[facility] Start: 06-14-2018 End: 06-14-2018 Patient encounter PROVIDER NOT IN SYSTEM [facility] Start: 06-14-2018 End: 06-14-2018 Office outpatient new 30 minutes Provider Not In [facility] Card[facility] Start: 05-17-2018 End: 05-17-2018 Patient encounter VANESSA ROLAND [facility] Start: 05-17-2018 End: 05-17-2018 Office outpatient new 30 minutes Vanessa Roland Work Phone: [facility] Derm[facility] Procedures Date Procedure Procedure Detail Performing Clinician Start: 04-26-2025 XR CHEST 2V Arvind Mallory DO Work Phone: Start: 04-26-2025 ALL CBC WITH AUTO DIFF Arvind Mallory DO Work Phone: Start: 03-30-2025 Urnls dip stick/tablet rgnt non-auto [...] Phone: H/O: section S/P sectio n Arvind Starro DO Work Phone: Plan of Treatment Date Care Activity Detail Author Start: 05-03-2025 End: 05-03-2025 Patient encounter procedure 05/03/2025 11:00 AM EDT Office Visit [facility] [address] [place] [id number] Arvind Tejada, DO [address] [place] [address] [facility] Start: 05-02-2025 End: 05-02-2025 Patient encounter procedure 05/02/2025 9:30 AM EDT Procedure Visit [facility] [address] [place] [phone] Arvind Tejada, DO [address] [place] [address] [facility] Start: 04-27-2025 End: 04-27-2025 Patient encounter procedure 04/27/2025 10:30 AM EDT Office Visit [facility] [address] [place] [address] Arvind Tejada, DO [address] [place] [address] [facility] Start: 04-20-2025 End: 04-20-2025 Patient encounter procedure 04/20/2025 11:00 AM EDT Office Visit [facility] [address] [place] [address] Yessica Govea, LUTHER [address] [place] [address] [facility] Start: 03-30-2025 End: 03-30-2025 Patient encounter procedure 03/30/2025 11:30 AM EDT Office Visit [facility] [address] [place] [phone] Arvind Tejada, DO [address] [place] [address] [facility] Start: 03-30-2025 End: 03-30-2025 Professional / ancillary services management 03/30/2025 11:00 AM EDT Ancillary Procedure [facility] [address] [place] [address] [facility] Start: 03-02-2025 End: 03-02-2026 US Pelvis transvaginal US pelvis transvaginal Imaging Routine Intrauterine device surveillance Abnormal uterine bleeding (AUB) Expected: 03/02/2025, Expires: 03/02/2026 [facility] Work Phone: Comment on above: Expected: 03/02/2025 , Expires: 03/02/2026 Start: 2025 End: 2025 Patient encounter procedure 2025 2:00 PM EDT Office Visit [facility] [address] [place] [id number] Arvind Tejada, DO [address] [place] [address] [facility] Start: 08-16-2024 End: 08-16-2024 Patient encounter procedure 08/16/2024 1:00 PM EDT Procedure Visit [facility] [address] [place] [address] Arvind Tejada, DO [address] [place] [address] [facility] Start: 07-31-2020 Influenza vaccinatio n given Sequential Influenza Vaccine (#1) [facility] Start: 07-31-2018 Influenza vaccination [facility] Start: 07-31-2018 Influenza vaccinatio n given SEQUENTIAL INFLUENZA VACCINE (#1) [facility] Start: 07-19-2018 End: 07-19-2018 Ambulatory 07/19/2018 Office Visit Dermatology Vanessa Roland Jr., [address] [address] [phone] [facility] Start: 06-14-2018 End: 06-14-2018 Ambulatory 06/14/2018 Office Visit Cardiology System, Provider Not In [facility], Josefina Matthew MD [address] [facility] [place] [address] [phone] [facility] Card[facility] Start: 02-21-2010 Hepatitis C antibody , confirmatory test Hepatitis C Screening [facility] Start: 02-21-2007 HIV screening HIV Screening [facility] Start: 02-21-1995 History and physical examination, annual for health maintenance Wellness Visit [facility] Start: 1992 Screening for malign ant neoplasm of cervix PAP SMEAR [facility] Start: 1992 [facility]anus [facility] End: 07-14-2020 Neisseria gonorrhoeae nucleic acid detection Chlamydia/Gonorrhoeae Amplified RNA Microbiology Routine Once for 1 Occurrences starting 07/14/2020 until 07/14/2020 [facility] Comment on above: Once for 1 Occurrenc es starting 07/14/2020 until 07/14/2020 Neisseria gonorrhoea e nucleic acid detection Chlamydia/Gonorrhoeae Amplified RNA Microbiology Routine 07/14/2020 11:[address] [facility] Payers Date Payer Category Payer Self-pay 2023 Medicaid [employer] [place] [id number] 2023-Present [address] [place] [address] [id number] 2023 Private Health Insurance [employer] [id number] 2023 Medicaid [id number] 2020 Medicaid [employer] [facility] MEDICAID [employer] xxxxxxxxxxx 2020-Present xxxxxxxxxxx [id number] 2020 Medicaid [id number] 2019 Private Health Insurance [id number] 2017 Unknown [id number] 2017 Unknown [facility] HMO/BECKY/ BECKY PLUS/CHOICE PLUS xxxxxxxxx 2017-Present xxxxxxxxx [id number] 1992 Unknown [id number] [id number]. 903 1992 Unknown [id number] 2.840.1.974114.3.579.2. 1258 1992 Unknown [id number] 2.840.1.868279.3.579.2. 1259 1992 Unknown [id number] 2.16840.1.248997.3.579.2. 1258 1992 Unknown [id number] 2.840.1.634350.3.579.2. 9 1992 Unknown [id number] 2.840.1.387297.3.579.2. 1258 1992 Unknown [id number] 2.16840.1.257256.3.579.2. 1259 1992 Unknown [id number] 2.16840.1.493877.3.579.2. 1258 1992 Unknown [id number] 2.16840.1.591942.3.579.2. 9 1992 Unknown [id number] 2.16840.1.660272.3.579.2. 9 1992 Unknown [id number] 2.16840.1.827430.3.579.2. 1259 1992 Unknown [id number] 2.16.840.1.406926.3.579.2. 9 1990 Unknown [id number] 2.16.840.1.364953.3.579.2. 9 1990 Unknown [id number] 2.16.840.1.986484.3.579.2. 9 1990 Unknown [id number] 2.16.840.1.859974.3.579.2. 9 1990 Unknown [id number] 2.16.840.1.059558.3.579.2. 1259 Social History Date Type Detail Facility Start: 05-17-2018 End: 06-14-2018 Tobacco smoking status RIIS Never smoker [facility] Sex Assigned At Not on file [facility] Start: 07-14-2020 Tobacco smoking status [facility] Current some day smoker [facility] Start: 07-14-2020 Alcohol intake Current non-drinker of alcohol (finding) [facility] Exposure to SARS-CoV -2 (event) Not sure [facility] Start: 1990 Sex Assigned At Female [facility] Tobacco smoking stat [facility] Tobacco smoking consumption unknown [facility] Start: 12-03-2023 Gender identity Identifies as female gender (finding) [facility] Start: 12-03-2023 Sexual orientation Heterosexual (finding) [facility] History of Present illness Narrative 03-30-2025 [...] nursing note reviewed. Exam conducted with a textile examiner present. Vitals: Estimated body mass index is [...] nursing note reviewed. Exam conducted with a textile examiner present. Vitals: Estimated body mass index is [...] Arvind Tejada DO documented in this encounter [facility] History of Present illness Narrative 08-16-2024 [...] nursing note reviewed. Exam conducted with a textile examiner present. Vitals: Estimated body mass index is [...] given: yes Instructions and paperwork completed: yes Hyampom protocol: Patient states understanding of procedure being [...] 800 mg, Oral, Every 6 hours PRN Vjtnxmzp-Elv-Et-FA ( 1 + IRON PO) Oral ALLERGIES No Known Allergies PROBLEMS Active Ambulatory Problems Diagnosis Date Noted No Active Ambulatory Problems Resolved Ambulatory Problems Diagnosis Date Noted No Resolved Ambulatory Problems Past Medical History: Diagnosis Date Drug abuse ([facility]) H/O chlamydia infection H/O gonorrhea H/O herpes simplex infection Rh negative, maternal HISTORY PAST MEDICAL HISTORY SOCIAL HISTORY Past Medical History: Diagnosis Date Drug abuse ([facility]) H/O....PT IS CURRRENTLY 7 MONTHS SOBER OF [...] nursing note reviewed. Exam conducted with a textile examiner present. Vitals: Estimated body mass index is [...] Arvind Tejada DO documented in this encounter [facility] Evaluation note Note Date & Type Note Facility Evaluation note [facility] Work Phone: Evaluation note Note Date & Type Note Facility Evaluation note Diagnosis 6 weeks follow-up S/P section Other postprocedural status documented in this encounter [facility] Evaluation note Note Date & Type Note Facility Evaluation note Diagnosis Encounter for IUD insertion Insertion of intrauterine contraceptive device documented in this encounter [facility] Evaluation note Note Date & Type Note Facility Evaluation note Diagnosis Intrauterine device surveillance Abnormal uterine bleeding (AUB) Encounter for weight management Hidradenitis suppurativa Hidradenitis documented in this encounter [facility] Evaluation note Note Date & Type Note Facility Evaluation note Diagnosis Encounter for weight management Abnormal uterine bleeding (AUB) Sterilization consult Other general counseling and advice for contraceptive management documented in this encounter [facility] Assessments Note Patient: SABRINA VELASQUEZ MRN : [facility]-[id number] Age: 29 years Sex: Female : 1990 [...] for home later today Logan Driscoll MD [phone] SURGERY PROGRESS NOTE SUBJECTIVE: Patient denies abd [...] FoundNo Family History Records Found Advance Directives Documents on File Type Date Recorded Patient 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 [facility] 09/16/18 14:45 [address] [place]. [address] PATIENT INFORMATION Name: SABRINA VELASQUEZ Address: [address] [place] [address] Age: 28 Years Phone: [phone] : 1990 12:00 MRN: ([id number] Sex: Female Race: White Ethnicity: Declined Admitted From: Clinic or Phys Ofc Medical Service: Surgery Nurse Unit/Bed: (CO) [facility] N[facility]A Admit Date: 09/16/2018 13:46 PCP: Omid Killian MD PHYSICIANS INVOLVED WITH CARE Attending Physicians: Keli URBINA Tristan - Surgery Admitting Physician: None found Primary Care Physician:Donaldo URBINA , Omid Almeida, - Consults: None found Problems Active Obesity IBS (irritable bowel syndrome) GERD (gastroesophageal reflux disease) Murmur Allergies NKA Procedures Tonsillectomy (2009) MEASUREMENTS: Last (more content not included)... Note CLINICAL SUMMARY Please take this summary document to your follow up appointments. [facility] 03/01/19 18:42 [address] [place]. [address] PATIENT INFORMATION Name: FRANCISCO VELASQUEZPAULINE Hensley Address: [address] [address] Age: 29 Years Phone: [phone] : 1990 12:00 MRN: ([id number] Sex: Female Race: White Ethnicity: Declined Admitted From: Clinic or Phys Ofc Medical Service: Surgery Nurse Unit/Bed: (CO) 7TWH 0D17-40 Admit Date: 02/28/2019 08:18 PCP: Omid Killian MD PHYSICIANS INVOLVED WITH CARE Attending Physicians: Marcellus Driscoll MD - Surgery Admitting Physician: Marcellus Driscoll MD - Surgery Primary Care Physician:Omid Killian MD, - Consults: None found Problems Active Morbid (severe) obesity due to excess calories Obesity IBS (irritable bowel syndrome) GERD (gastroesophageal reflux (more content not included)... Note Patient: SABRINA VELASQUEZ MRN : ([id number] Age: 29 years Sex: Female : 1990 [...] GERD, IBS, and heart murmur presented to [facility] on 02/28/2019 for an elective robotically assisted laparoscopic Milton-en-Y gastric bypass with Dr. catie lawrence had an extensive preoperative workup. Patient tolerated the procedure well and was transferred to PACU in stable condition where she had an uneventful recovery. His then tra (more content not included)... Note Patient: SABRINA VELASQUEZ MRN : ([id number] Age: 29 years Sex: Female : 1990 [...] for home later today Logan Driscoll MD [phone] SURGERY PROGRESS NOTE SUBJECTIVE: Patient denies abd [...] (02/28 12:00 (more content not included)... Note [facility] Patient Name: Sabrina Velasquez Procedure [...] included)... Note Patient: SABRINA VELASQUEZ MRN: [facility])-[id number] Age: 28 years Sex: Female : 1990 Associated Diagnoses: None Author: Kasie Delvalle CRNA Supervising Physician Comments Documentation By: Certified Registered Nurse Intervention Teacher. Subjective Subjective: Patient participated in the evaluation: [...] Note Patient: SABRINA VELASQUEZ MRN : [facility])-[id number] Age: 29 years Sex: Female : 1990 [...] (more content not included)... Procedure Findings Note [facility] Patient Name: Sabrina Velasquez Procedure [...] content not included)... Note Patient: SABRINA VELASQUEZ [facility]: [id number] Age: 28 years Sex: Female : 1990 Associated Diagnoses: None Author: Kasie Delvalle CRNA Supervising Physician Comments Documentation By: Certified Registered Nurse Intervention Teacher. Subjective Subjective: Patient participated in the evaluation: [...] concluded. Note Patient: SABRINA VELASQUEZ MRN : ([id number] [facility]: [id number] Age: 29 years Sex: Female : 1990 [...] sent through Care Everywhere. * Miscarriage: Threatened (Cambodian) documented in this encounter Additional Source Comments Assessment & Plan Note - Tracy, Nowwar Ghazi Yasin, MD - 06/14/2018 9:36 AM EDTAssessment & [...] nondistended Alicia Hudson MD ED Attending Physician [facility] Emergency Department documented in this encounter INFORMATION SOURCE (unrecogn ized section and content) DATE CREATED AUTHOR 06/15/2018 [facility] DATE CREATED AUTHOR AUTHOR'S ORGANIZ ATION 08/09/2019 [facility] DATE CREATED AUTHOR AUTHOR'S ORGANIZ ATION 12/27/2020 [facility] DATE CREATED AUTHOR AUTHOR'S ORGANIZ ATION 07/03/2024 [facility] DATE CREATED AUTHOR AUTHOR'S ORGANIZ ATION 07/08/2024 [facility] DATE CREATED AUTHOR AUTHOR'S ORGANIZ ATION 04/04/2025 [facility] EPIC Reason for Visit (unrecogniz [...] secti on and content) ED PROVIDER NOTE [facility] EMERGENCY DEPARTMENT NAME: Sabrina Velasquez AGE: 30 y.o. : 1990 VISIT DATE: 07/14/2020 CSN: [id number] PCP: Omid Killian MD Clinical Impression: 1. Threatened ED Disposition ED Disposition Condition Comment Discharge Stable Sabrina Velasquez discharged to home/self care in stable condition. Follow-up Information 1. Roni Clemens MD. Specialty: Obstetrics/Gynecology Why: For recheck of today's symptoms [address] [facility] [address] 2. [facility] Emergency Department. Specialty: Emergency Medicine Why: As needed, If symptoms worsen [address] [facility] [address] Contact information for after-discharge care Follow-up information [...] this point clinically. Patient has appointment with CONSUMER SAFETY INSPECTOR on Thursday. Considered implantation bleeding, threatened , [...] reports she is scheduled to see her CONSUMER SAFETY INSPECTOR Dr. Clemens next week. Patient denies any [...] file Gets together: Not on file Attends synagogue service: Not on file Active member of [...] nursing note reviewed. Exam conducted with a textile examiner present. Constitutional: Appearance: Normal appearance. HENT: Head: [...] Colorless, Yellow Clarity, Urine Clear Clear Specific [place] 1.011 1.005 - 1.025 pH, Urine 7.0 [...] of is believed most likely. [facility] Workstation ID: [id number] Procedures The patient [...] pre-hypertension or hypertension. . Chris Pate PA-C [facility] Emergency Department Chris Pate PA-C 07/14/20 [...] BE BASED ON THE PRIMARY CLINICAL RECORDS. [employer] provides no warranty or guarantee of the accuracy or completeness of information in this document.
[2025-04-27 11:10] LABS: Amphetamine Screen Urine NEGATIVE (NEGATIVE); Barbiturates Screen Urine NEGATIVE (NEGATIVE); Benzodiazepines Screen Urine NEGATIVE (NEGATIVE); Buprenorphine Screen Urine NEGATIVE (NEGATIVE); Cannabinoid Screen Urine NEGATIVE (NEGATIVE); Cocaine Screen Urine NEGATIVE (NEGATIVE); Methadone Screen Urine NEGATIVE (NEGATIVE); Methamphetamines Screen Urine NEGATIVE (NEGATIVE); Opiate Screen Urine NEGATIVE (NEGATIVE); Oxycodone Screen Urine NEGATIVE (NEGATIVE); Phencyclidine Screen Urine NEGATIVE (NEGATIVE); Tricyclic Antidepressant Urine NEGATIVE (NEGATIVE)
[2025-04-27] MEDS: LACTATED RINGER'S SOLUTION 1,000 ML 50 ML IV ×2 (11:13→12:21)
--- NOTE | 2025-04-27 12:14 | PM.ONB ---
Brief Operative Note Date of procedure: 04/27/25 Pre-op diagnosis general: desires permanent sterilization, multiparity, migrated iud Post-op diagnosis: other (lt ovarian cyst) Procedure: NAME OF PROCEDURE: robotic assisted bilateral laparoscopic salpingectomy, removal of iud, lt ovarian cystotomy PROCEDURE: The patient was taken back to the Operating Room where she was given general anesthesia without difficulty. She was then prepped and draped in the normal sterile fashion after being placed in a dorsal lithotomy position. A wet sponge stick was placed into the patient's vagina. Attention was then turned to the patient's abdomen, where a scalpel was used to make a small infraumbilical incision. The S retractors were then used to dissect the underlying layers until the fascia could be seen. The fascia was then grasped with Whitley clamps and tented up. A knife was then used to make a small incision to the fascia. The muscle was identified, at that time two sutures of #0 Vicryl on a GI needle was then used and placed through the fascia. the peritoneum was then identified and entered bluntly. The 10-4 Libby was then placed into the patient's abdomen. This was confirmed with direct visualization of the bowel, using the laparoscope. The patient's abdomen was then insufflated using approximately 4 liters of CO2 gas. Survey of the patient's abdomen demonstrated ovaries were normal in appearance as well as both tubes and uterus. A second and third rt and lt lateral robotic ports which were 8 mm in size, was then placed after the skin incision was made under direct visualization . the robotic arms were engaged. The patient's tube on the patient's right side was identified and tented up using a grasper, the ligasure apparatus was then used to come across the mesosalpingx from the fimbriated end to the insertion site at the uterus, the tube was then amputated and removed in its entirety. This was done on the contralateral side. The tubes were the removed from the patients abdomen. Excellent hemostasis was noted. The lateral ports were then moved under direct visualization with excellent hemostasis. lt ovarian cystotomy performed using ligasure All instruments were removed from the patient's abdomen. The fascia was closed using the #0 Vicryl on GI needle. The skin was closed using 4-0 Vicryl subcuticularly. All instruments were removed from the patient's vagina as well. The patient was taken out of the dorsal lithotomy position and placed in the supine position and taken to recovery in stable condition. Sponge, lap and needle counts were correct x2. please note iud was removed from the cervical canal and easily removed with grasper Anesthesia: CHRISTIANNE Surgeon: Arvind Tejada Gasoline Catalyst Operator: Shani David Estimated blood loss (mL): 5 Pathology: other (tubes) Condition: stable Disposition: PACU Urinary Catheter Management Urinary Catheter Management Urethral: Cath placed during this visit: no
== END 2025-04-27 14:27 | disposition home or self-care (01) ==
PROVIDERS: Anesthesiology; Visit Provider Obstetrics & Gynecology
PROC: (CPT 840; principal; 2025-04-27 11:45)
DX: Z30.2 Encounter for sterilization (principal); Z30.432 Encounter for removal of intrauterine contraceptive device; N83.202 Unspecified ovarian cyst, left side; Z98.84 Bariatric surgery status; F17.210 Nicotine dependence, cigarettes, uncomplicated
CPT/HCPCS: 49322; 58301; 58661; 36415; 80307; 88302; J0131; J1100; J1171; J1885; J2250; J2371; J2405; J2704; J3010

== ENCOUNTER 2025-06-01 15:28 | Outpatient (REF) | payer OTHER, SELFPAY ==
--- OUTSIDE RECORDS SUMMARY | 2025-06-01 09:50 | XMS_ITS | Encounter Summary ---
Author Organization [facility] Address [address] [place] [address] Care Team Providers Care Shield Runner Name Role Phone Unavailable Primary Care Provider Unavailabl e Reason for Visit * Reason Comments Post-op Visit Encounter Details Date Type Department Care Team (Latest Contact Info) Description 06/01/2025 9:50 AM EDT Procedure Visit [facility] [address] [place] [id number] Arvind Tejada, DO [address] [place] [address] Postoperative follow-up; Encounter for weight management; Menorrhagia with irregular cycle; Abnormal bleeding in menstrual cycle Social History Tobacco Use Types Packs/Day Years Used Date Smoking Tobacco: Never Assessed Comments No Sex and Gender Information Value Date Recorded Sex Assigned at Female 12/03/2023 12:44 PM EST Legal Sex Female 11:35 AM EST Gender Identity Female 12/03/2023 12:44 PM EST Sexual Orientation Straight 12/03/2023 12 :44 PM EST documented as of this encounter Last Filed Vital Signs Vital Sign Reading Time Taken Comments Blood Pressure 110/74 06/01/2025 9:55 AM EDT Pulse - - Temperature - - Respiratory Rate - - Oxygen Saturation - - Inhaled Oxygen Concentration - - Weight 115 kg (254 lb 4 oz) 06/01/2025 9:55 AM E DT Height - - Body Mass Index 41.04 07/06/2024 2:32 PM EDT documented in this encounter Plan of Treatment Upcoming Encounters Date Type Department Care Team (Late st Contact Info) Description 07/13/2025 11:50 AM EDT Office Visit [facility] [address] [place] [address] Arvind Tejada DO [address] [place] [address] Scheduled Orders Name Type Priority Associated Diagnoses Orde r Schedule Endometrial biopsy Procedures Routine Postoperative follow-up Encounter for weight management Menorrhagia with irregular cycle Abnormal bleeding in menstrual cycle Ordered: 06/01/2025 documented as of this encounter Procedures Procedure Name Priority Date/Time Associated Diagnosis Comments POCT , URINE Routine 06/01/2025 10:05 AM EDT Postoperative follow-up documented in this encounter Results * POCT , urine manually resulted (06/01/2025 10:05 AM EDT) Preg Test, Ur Negative Negative Urine 06/01/2025 10:0 5 AM EDT Arvind Tejada DO POINT OF CARE TEST ENTER/EDIT OR DERABLES Final Result documented in this encounter Visit Diagnoses Diagnosis Postoperative follow-up Follow-up examination, following unspecified surgery Encounter for weight management Menorrhagia with irregular cycle Abnormal bleeding in menstrual cycle documented in this encounter
--- OUTSIDE RECORDS SUMMARY | 2025-06-01 09:50 | XMS_ITS ---
Author Name Auto Generated Organization OHIP Care Team Providers Care Network Firewall Engineer Name Role Phone MALLORY, LIA Attending Unavailable MALLORY, LIA Attending Unavailable MALLORY, LIA Attending Unavailable MALLORY, LIA Attending Unavailable MALLORY, LIA Attending Unavailable MALLORY, LIA Attending Unavailable MIRIAN, MARITZA Attending Unavailable MIRIAN, MARITZA Attending Unavailable MALLORY, LIA Attending Unavailable MALLORY, LIA Attending Unavailable MALLORY, LIA Attending Unavailable KAI FERGUSON Attending Unavailable Thom, Radha A Admitting Unavailable Thom, Radha A Attending Unavailable Mallory, Lia Admitting Unavailable Mallory, Lia Attending Unavailable Mallory, Lia Admitting Unavailable Mallory, Lia Attending Unavailable PROBLEMS DATE TYPE CONDITION / CODE ATTENDING STATUS [facility] 07/05/2024 Unknown Contusion of abdominal wall, initial encounter / S30.1XXA(ICD-10) KAI FERGUSON [facility] 07/05/2024 Unknown Post-op Problem / FREETEXT(AOF) KAI FERGUSON [facility] 07/05/2024 Unknown Post-Op Issue / UNK(Unknown[facility] No Procedure Records Found RESULTS L Observed: 06/01/2025 12:00 AM Status: F Source: [facility] ----- ------- Specimen: [id number] Received: 06/05/25 Status: WILBER Boateng Num: [id number] Spec Type: Surgical Subm Dr: Lia Tejada Tissues: A Endometrium - Biopsy (ENDOMETRIAL BX) Procedures: HE/2, Gross/Micro L4 ----- ------- Age/ Patient Sex Location Account Attending Physician ----- ------- Sabrina Velasquez 35/F [facility] [id number] Lia Tejada ----- ------- SPEC NUM: [id number] RECD: 06/05/25 STATUS: WILBER BOATENG NUM: [id number] MELISSA: 06/01/[address]: Lia Tejada ENTERED: 06/05/[address] [facility] [address]: Ashish,Lab SPEC TYPE: Surgical DEPT: SHREYA GUIDO ENTERED BY: [id number] RECV BY: [id number] ORDERED: HE/2, Gross/Micro L4 ORDERED: HE/2, Gross/Micro L4 Pathological Diagnosis Endometrium, biopsy: - Late secretory phase endometrium. - No evidence of hyperplasia or malignancy identified. Clinical Information Menorrhagia Gross Description Received in formalin labeled with the patients name, date of , and Endometrium, BX are ware-pink to red-brown, delicate tissue fragments, admixed with a pale hawkins mucoid material, 2 x 1.5 x 0.2 cm in aggregate. The specimen is filtered and entirely submitted in a single cassette. (1, ns, [id number]) J Microscopic Description Microscopic examination is performed. ----- ------- Specimen: [id number] Received: 06/05/25 Status: WILBER Boateng Num: [id number] Spec Type: Surgical Subm Dr: Lia Tejada Tissues: A Endometrium - Biopsy (ENDOMETRIAL BX) Procedures: HE/2, Gross/Micro L4 ----- ------- Patient: Sabrina Velasquez [id number] (Continued) ----- ------- Specimen: [id number] Received: 06/05/25 (Continued) Signed (signature on file) Andrae Flores MD 06/06/25 1206 ----- ------- Specimen: [id number] Received: 06/05/25 Status: WILBER Boateng Num: [id number] Spec Type: Surgical Subm Dr: Lia Tejada Tissues: A Endometrium - Biopsy (ENDOMETRIAL BX) Procedures: DEVANG/Maame, Kalia/Mihir L4 ----- ------- Patient: Sabrina Velasquez Ayden [id number] (Continued) ----- ------- Specimen: [id number] Received: 06/05/25 (Continued) CPT Codes 48632 ----- ------- ----- ------- Specimen: [id number] Received: 06/05/25 Status: WILBER Boateng Num: [id number] Spec Type: Surgical Subm Dr: Lia Tejada Tissues: A Endometrium - Biopsy (ENDOMETRIAL BX) Procedures: DEVANG/2, Gross/Micro L4 ----- ------- Patient: EvaSabrina E [id number] (Continued) ----- ------- Signed (signature on file) Andrae Flores MD 06/06/25 1206 L Observed: 04/27/2025 12:41 PM Status: F Source: [facility] ----- ------- Specimen: [id number] Received: 04/28/25 Status: WILBER Boateng Num: [id number] Spec Type: Surgical Subm Dr: Lia Tejada Tissues: A Fallopian Tube - Sterilization (BILATERAL FALLOPIAN TUBES) Procedures: /2Margarito L2 ----- ------- Age/ Patient Sex Location Account Attending Physician ----- ------- Sabrina Velasquez 35/F [place] [id number] Lia Tejada ----- ------- SPEC NUM: [id number] RECD: 04/28/25 STATUS: WILBER BOATENG NUM: [id number] MELISSA: 04/27/25-1 [facility] DR: Lia Tejada ENTERED: 04/28/[address] [facility] [address]: Digna Hinojosa SPEC TYPE: Surgical DEPT: SHREYA GUIDO ENTERED BY: [id number] RECV BY: [id number] ORDERED: HE/2, Gross/Micro L2 ORDERED: HE/2, Gross/Micro L2 Pathological Diagnosis Bilateral fallopian tubes, bilateral salpingectomy: -Intact bilateral fimbriated fallopian tubes without significant histopathological changes except rare tiny Walthard nests in shorter tube, and few small Walthard cysts and 2 small paratubal cysts in the longer tube without atypia Clinical Information Request for sterilization, retained IUD Gross Description Part A is received in formalin labeled with the patients name, date of , and bilateral fallopian tubes are bilateral, non-oriented fallopian tubes with fimbriated distal ends, 5 x 1 cm, and 6.7 x 0.7 cm. The serosa is hawkins-purple, smooth and glistening. Serial sections reveal pinpoint lumen within each segment. Cassettes: A1 Entirety of trisected fimbriated end and software support representative cross-sections from shorter tube A2 Entirety of trisected fimbriated end and software support representative cross-sections from longer tube (2, ss, RN93-730 A)JG ----- ------- Specimen: [id number] Received: 04/28/25 Status: WILBER Boateng Num: [id number] Spec Type: Surgical Subm Dr: Lia Tejada Tissues: A Fallopian Tube - Sterilization (BILATERAL FALLOPIAN TUBES) Procedures: HE/2, Kalia/Mihir L2 ----- ------- Patient: Sabrina Velasquez [id number] (Continued) ----- ------- Specimen: [id number] Received: 04/28/25 (Continued) Signed (signature on file) Suzy Sanchez MD 05/01/25 9850 ----- ------- Specimen: [id number] Received: 04/28/25 Status: WILBER Boateng Num: [id number] Spec Type: Surgical Subm Dr: Lia Tejada Tissues: A Fallopian Tube - Sterilization (BILATERAL FALLOPIAN TUBES) Procedures: HE/2, Gross/Micro L2 ----- ------- Patient: Sabrina Velasquez [id number] (Continued) ----- ------- Specimen: [id number] Received: 04/28/25 (Continued) Microscopic Description Microscopic examination is performed CPT Codes 71854 ----- ------- ----- ------- Specimen: [id number] Received: 04/28/25-1313 Status: WILBER Boateng Num: [id number] Spec Type: Surgical Subm Dr: Lia Tejada Tissues: A Fallopian Tube - Sterilization (BILATERAL FALLOPIAN TUBES) Procedures: HE/2, Gross/Micro L2 ----- ------- Patient: Sabrina Velasquez [id number] (Continued) ----- ------- Signed (signature on file) Julia Sanchez MD 05/01/25 1443 US PELVIS TRANSVAGINAL Observed: 025 10:50 AM Status: F Source: [facility] EPIC Order Comment: US PELVIS TRA NSVAGINAL [...] report is generated using voice recognition reporting (BiiCode). On occasion, Solar3[employer] erroneously drops words from the report or replaces the spoken word with a similar sounding word. Please call with any questions/concerns regarding the report. Dictated and transcribed 03/30/2025/judith This report has been electronically signed and approved by the interpreting radiologist. CBC AND AUTO DIFF Collected: 07/05/2024 9:07 PM Status: COMPLETED Source: [facility] TYPE CODE TESTS RESULT OUT OF RANGE [...] BASOPHIL 0.0 0.0-0.2 X10E9/L Performed By: #### CBCA, CMP #### [facility] ([id number]) [address] [place] [address], [place] [address] COMPREHENSIVE METABOLIC PANEL Collected: 2023 9:07 PM Status: COMPLETED Source: [facility] TYPE CODE TESTS RESULT OUT OF RANGE [...] use a race coefficient. Performed By: #### CBCA, CMP #### [facility] ([id number]) [address] [facility], [place] [address] L Observed: 06/25/2024 6:29 PM Status: F Source: [facility] Specimen: [id number] Received : 06/27/24 Status: WILBER Boateng Num: [id number] Spec Type: Surgical Subm Dr: Radha Tomas MD Tissues: A Placenta - 3rd Trimester (Greater than 28 weeks) (PLACENTA) Procedures: HE/3, Gross/Micro L5 Age/ Patient Sex Location Account Attending Physician EvaSabrina Ayden 34/F LABELL [id number] Radha Tomas MD SPEC NUM: [id number] RECD: 06/27/24 STATUS: WILBER BOATENG NUM: [id number] MELISSA: 06/25/[address]: Radha Tomas MD ENTERED: 06/27/[address]: Digna Hinojosa SPEC TYPE: Surgical DEPT: [...] has a trimmed weight ----- ------- Specimen: [id number] Received: 06/27/24 Status: WILBER Boateng Num: [id number] Spec Type: Surgical Subm Dr: Radha Tomas MD Tissues: A Placenta - 3rd Trimester (Greater than 28 weeks) (PLACENTA) Procedures: , Gross/Micro L5 ----- ------- Patient: Sabrina Velasquez [id number] (Continued) ----- ------- Specimen: [id number] Received: 06/27/24 (Continued) Gross Description (Continued) Signed (signature on file) Flavia Nicholson MD 06/30/24 9292 ----- ------- Specimen: [id number] Received: 06/27/24 Status: WILBER Boateng Num: [id number] Spec Type: Surgical Subm Dr: Radha Tomas MD Tissues: A Placenta - 3rd Trimester (Greater than 28 weeks) (PLACENTA) Procedures: HE/3, Gross/Micro L5 ----- ------- Patient: Sabrina Velasquez [id number] (Continued) ----- ------- Specimen: [id number] Received: 06/27/24 (Continued) Gross Description (Continued) of 322 grams. Summary of sections: A1: umbilical cord at end and membrane roll including possible site of rupture A2: umbilical cord at placental end and parenchyma adjacent to cord insertion site A3: random mid-zonal section CPT Codes 47779 ----- ------- ----- ------- Specimen: [id number] Received: 06/27/24-1252 Status: WILBER Boateng Num: [id number] Spec Type: Surgical Subm Dr: Radha Tomas MD Tissues: A Placenta - 3rd Trimester (Greater than 28 weeks) (PLACENTA) Procedures: HE/3, Gross/Micro L5 ----- ------- Patient: Sabrina Velasquez [id number] (Continued) ----- ------- Signed (signature on file) Flavia Nicholson MD 06/30/24 1712 ALLERGIES DATE TYPE / CODE NAME / CODE REACTION SEVERITY SOURCE Drug Class/[id number](SNO MED CT) NO KNOWN ALLERGIES [facility] ENCOUNTERS ADMIT/DISCHARGE ACCOUNT NUMBER ADMITTING ENCOUNTER CLASS LOCATION SOURCE 06/01/2025/06/01/20 [id number] [facility] 06/01/2025/06/01/20 [id number] Ambulatory Building:[facility] S BCP OB [facility] EPIC 05/03/2025/05/03/20 25 [id number] Ambulatory Building:N[facility] S [facility]CP OB [facility] 04/27/2025/04/27/20 25 [id number] [facility] 03/30/2025/03/30/20 25 [id number] Ambulatory Building:NOM S BCP OB [facility] EP[facility] 03/30/2025/03/30/20 25 [id number] Ambulatory Building:NOM S BCP OB [facility] 03/02/2025/03/02/20 25 [id number] Ambulatory Building:NOM S BCP OB [facility] EP[facility] 08/16/2024/08/16/20 24 [id number] Ambulatory Building:NOM S BCP OB [facility] 08/09/2024/08/09/20 24 [id number] Ambulatory Building:NOM S BCP OB [facility] 07/06/2024/07/06/20 24 [id number] Ambulatory Building:NOM S [facility]CP OB [facility] 07/05/2024/07/05/20 24 [id number] Emergency Building:PFM _EDRoom: 12Bed: 12 [facility] 07/04/2024/07/04/20 24 [id number] Ambulatory Building:NOM S BCP OB [facility] EP[facility] 06/25/2024/06/25/20 24 [id number] [facility] 06/21/2024/06/21/20 24 [id number] Ambulatory Building:NOM S BCP OB [facility] 06/14/2024/06/14/20 24 [id number] Ambulatory Building:NOM S BCP OB [facility] 06/09/2024/06/09/20 24 [id number] Ambulatory Building:NOM S BCP OB [facility] EPIC PAYERS ENCOUNTER GUARANTOR PAYER SUBSCRIBER SOURCE 06/01/2025 Primary Insuranc e:Self PayPolicy Number: Effective Date:2025-06-01 [facility]25 SABRINA VELASQUEZDOB: [place], [place] [address]Pii: (HP) Primary Insurance:[employer] MEDICAIDPolicy Number: [id number] Date:2023-11-02 SABRINA VELASQUEZDOB: [id number] [place] [address] [facility] 05/03/2025 SABRINA EVADOB: [place], [place] [address]Eqm: (HP) Primary Insurance:[employer] MEDICAIDPolicy Number: [id number] Date:2023-11-02 SABRINAPAULINE VELASQUEZB: [id number] [place] [address] [facility] 04/27/2025 Primary Insuranc e:Self PayPolicy Number: Effective Date:2025-04-27 [facility] 03/30/2025 SABRINAOWEN VELASQUEZDOB: [place], [place] [address]Zty: (HP) Primary Insurance:[employer] MEDICAIDPolicy Number: [id number] Date:2023-11-02 SABRINAPAULINE VELASQUEZB: [id number] [place] [address] [facility] 03/30/2025 SABRINA PENNB: [place], [place] [address]Rbt: (HP) Primary Insurance:[employer] MEDICAIDPolicy Number: [id number] Date:2023-11-02 SABRINA VELASQUEZDOB: [id number] [place] [address] [facility] 03/02/2025 SABRINA VELASQUEZDOB: [place], [place] [address]Yhe: (HP) Primary Insurance:[employer] MEDICAIDPolicy Number: [id number] Date:2023-11-02 SABRINA VELASQUEZDOB: [id number] [place] [address] [facility] 08/16/2024 SABRINAPAULINE VELASQUEZDOB: [place], [place] [address]Njc: (HP) Primary Insurance:[employer] MEDICAIDPolicy Number: [id number] Date:2023-11-02 SABRINA EVADOB: [id number] [place] [address] [facility] 08/09/2024 SABRINA VELASQUEZDOB: [place], [place] [address]Bxf: (HP) Primary Insurance:[facility] MEDICAIDPolicy Number: [id number] Date:2023-11-02 SABRINA VELASQUEZDOB: [id number] [place] [address] [facility] 07/06/2024 SABRINAOWEN VELASQUEZDOB: [place], [place] [address]Glc: (HP) Primary Insurance:[employer] MEDICAIDPolicy Number: [id number] Date:2023-11-02 SABRINAPAULINE VELASQUEZDOB: [id number] [place] [address] [facility] 07/04/2024 SABRINA VELASQUEZDOB: [place], [place] [address]Czf: (HP) Primary Insurance:[employer] MEDICAIDPolicy Number: [id number] Date:2023-11-02 SABRINA PENNB: [id number] [place] [address] [facility] 06/25/2024 Primary Insuranc e:Self PayPolicy Number: Effective Date:2024-06-25 [facility] 06/21/2024 SABRINA VELASQUEZDOB: [place], [place] [address]Eka: () Primary Insurance:[facility] MEDICAIDPolicy Number: [id number] Date:2023-11-02 SABRINA EVADOB: [id number] [place] [address] [facility] 06/14/2024 SABRINA VELASQUEZDOB: [place], [place] [address]Clz: () Primary Insurance:[facility] MEDICAIDPolicy Number: [id number] Date:2023-11-02 SABRINA VELASQUEZDOB: [id number] [place] [address] [facility] 06/09/2024 SABRINA VELASQUEZDOB: [place], [place] [address]Sts: () Primary Insurance:[facility] MEDICAIDPolicy Number: [id number] Date:2023-11-02 SABRINA PENNB: [id number] [place] [address] [facility] EP[facility]
--- OUTSIDE RECORDS SUMMARY | 2025-06-02 20:05 | XMS_ITS | Continuity of Care Document ---
Author Organization [facility] Address [address] [place] [address] Phone Care Team Providers Care Svp Research & Ebusiness Operations Name Role Phone Arvind Tejada DO Attending Provider [phone] Care Teams Visit Care Team Team Status: Inactive Member Role Status Dates Arvind Tejada DO Attending Provider Active Start : April 27, 2025 End: April 27, 2025 Patient Care Team Team Status: Inactive Member Role Status Dates Arvind Tejada DO Attending Provider Active Start : June 01, 2025 End: June 01, 2025 Chief Complaint and Reason for Visit Chief Complaint Admit Date Unknown April 27, 2025 12:41 pm Unknown June 01, 2025 9:50a m Social History Smoking Status Unknown if ever smoked Observation Status Observation Response Date of Response Legal Sex Female (finding) Sex Assigned At Female January Encounters Encounter Location(s) Arrival/Admit Date Discharge/Depart Date Provider(s) Departed Referred -[facility] April 27, 2025 12:41pm April 27, 2025 12:42pm Arvind Tejada Departed Referred -[facility] June 01, 2025 9:50am June 01, 2025 9:51am Arvind Tejada
--- OUTSIDE RECORDS SUMMARY | 2025-06-06 15:31 | XMS_ITS | Encounter Summary ---
Author Organization [facility] Address [address] [place] [address] Care Team Providers Care Back Pad Inspector Name Role Phone Unavailable Primary Care Provider Unavailabl e Encounter Details Date Type Department Care Team (Late st Contact Info) Description 04/27/2025 Abstract [facility] OB [address] [place] [address] Arvind Tejada, [address] Pat Hinojosa, [facility] Social History Tobacco Use Types Packs/Day Years [...] EDT Office Visit [facility] [address] [facility] [place] [address] Arvind Tejada DO [facility] [place] [place], [place] [id number] documented as of this encounter Visit Diagnoses Not on filedocumented in this encounter
--- OUTSIDE RECORDS SUMMARY | 2025-06-06 15:31 | XMS_ITS | Encounter Summary ---
Author Organization [facility] Address [address] [place] [address] Care Team Providers Care Piping Supervisor Name Role Phone Unavailable Primary Care Provider Unavailabl e Encounter Details Date Type Department Care Team (Late st Contact Info) Description 02/24/2024 Clinisync Result Encounter [facility] External Department Unsolicited Lia Tejada, DO [facility] [place] [address] Social History Tobacco Use Types Packs/Day Years [...] 07/13/2025 11:50 AM EDT Office Visit [facility] OB [address] [place] [place] [id number] Lia Tejada, [address] [place] [address] documented as of this encounter Procedures Procedure Name Priority Date/Time Associated Diagnosis Comments US OB CERVICAL LENGTH 02/24/2024 3:02 PM EDT documented in this encounter Results * US OB CERVICAL LENGTH (02/24/2024 3:02 PM EDT) Anatomical Region Laterality Modality Other 02/24/2024 3:02 PM EDT Narrative 02/24/2024 3:05 [place] [address] Ultrasound Report Signed Patient: JOHANNA VELASQUEZ MR#: [id number] : 1990 Acct:[id number] Age/Sex: 34 / F ADM Date: 02/24/24 Loc: [facility] Attending Dr: Lia Tejada D.O. Ordering Physician: Lia Tejada D.O. Date of Service: 02/24/24 Procedure(s): US OB cervical length Accession Number(s): [id number] cc: Lia Tejada D.O.; Physician,Non-Staff Est[place] [address] [address] Patient Name: JOHANNA VELASQUEZ MRN: [id number] date: 1990 Sex: F Assigned Patient Location: [facility] Current Patient Location: [facility] Accession/Order Number: [id number] Exam Date: 02/24/2024 13:40 Report Date: 02/24/2024 [...] Signed By: 02/24/24 1505 DD/ 1502 TD/TT: Quickbooks Bookkeeper: Procedure Note Radiology, Radiologist, MD - 02/24/2024 [place] [address] Ultrasound Report Signed Patient: JOHANNA VELASQUEZMR#: [id number] : 1990Acct:[id number] Age/Sex: 34 / FADM Date: 02/24/24 Loc: [facility] Attending Dr: Lia Tejada D.O. Ordering Physician: Lia Tejada D.O. Date of Service: 02/24/24 Procedure(s): US OB cervical length Accession Number(s): [id number] cc: Lia Tejada D.O.; Physician,Non-Staff [place] The [place] [address] Patient Name: JOHANNA VELASQUEZ MRN: [id number] date: 1990 Sex: F Assigned Patient Location: [facility] Current Patient Location: [facility] Accession/Order Number: [id number] Exam Date: 02/24/2024 13:40 Report Date: 02/24/2024 [...] M.D. Signed By:02/24/24 1505 DD/ 1502 TD/TT: Quickbooks Bookkeeper: us Lia Mallory DO [facility] Final Result documented in this encounter Visit Diagnoses Not on filedocumented in this encounter
--- OUTSIDE RECORDS SUMMARY | 2025-06-06 15:31 | XMS_ITS | Encounter Summary ---
Author Organization [facility] Address [address] [place] [address] Care Team Providers Care Medical Charge Entry Specialist Name Role Phone Unavailable Primary Care Provider Unavailabl e Encounter Details Date Type Department Care Team (Late st Contact Info) Description 06/17/2024 Clinisync Result Encounter [facility] External Department Unsolicited Lia Tejada, DO [facility] [place] [address] Social History Tobacco Use Types Packs/Day Years [...] EDT Office Visit [facility] OB [address] [place] [phone] Lia Tejada [address] [place] [address] documented as of this encounter Procedures Procedure Name Priority Date/Time Associated Diagnosis Comments US OB BPP W NON-STRESS 06/17/2024 10:32 AM EDT documented in this encounter Results * US OB BPP W NON-STRESS (06/17/2024 10:32 AM EDT) Anatomical Region Laterality Modality Other 06/17/2024 10:3 2 AM EDT Narrative 06/17/2024 10:35 [place] [address] Ultrasound Report Signed Patient: JOHANNA VELASQUEZ MR#: [id number] : 1990 Acct:[id number] Age/Sex: 34 / F ADM Date: 06/17/24 Loc: [facility] 250-[address]: Lia Tejada D.O. Ordering Physician: Lia Tejada D.O. Date of Service: 06/17/24 Procedure(s): US OB BPP w non-stress Accession Number(s): [id number] cc: Lia Tejada D.O.; Physician,Non-Staff [place] [address] Patient Name: JOHANNA VELASQUEZ MRN: [id number] date: 1990 Sex: F Assigned Patient Location: [facility] Current Patient Location: [facility] Accession/Order Number: [id number] Exam Date: 06/17/2024 09:42 Report Date: 06/17/2024 [...] Signed By: 06/17/24 1035 DD/ 1032 TD/TT: Corporate Event Planner: Procedure Note Radiology, Radiologist, MD - 06/17/2024 [place] [address] Ultrasound Report Signed Patient: JOHANNA VELASQUEZMR#: [id number] : 1990Acct:[id number] Age/Sex: 34 / FADM Date: 06/17/24 Loc: [facility] 250-[address]: Lia Tejada D.O. Ordering Physician: Lia Tejada D.O. Date of Service: 06/17/24 Procedure(s): US OB BPP w non-stress Accession Number(s): [id number] cc: Lia Tejada D.O.; Physician,Non-Staff Estee The [address] [address] Patient Name: JOHANNA VELASQUEZ MRN: [facility]:[id number] date: 1990 Sex: F Assigned Patient Location: [facility] Current Patient Location: [facility] Accession/Order Number: [id number] Exam Date: 06/17/2024 09:42 Report Date: 06/17/2024 [...] M.D. Signed By:06/17/24 1035 DD/ 31 TD/TT: Corporate Event Planner: us Lia Mallory DO [facility] Final Result documented in this encounter Visit Diagnoses Not on filedocumented in this encounter
--- OUTSIDE RECORDS SUMMARY | 2025-06-06 15:31 | XMS_ITS | Encounter Summary ---
Author Organization [facility] Address [address] [place] [address] Care Team Providers Care Fur Dyer Name Role Phone Unavailable Primary Care Provider Unavailabl e Encounter Details Date Type Department Care Team (Late st Contact Info) Description 06/13/2024 Abstract [facility] OB [address] [place] [address] Arvind Tejada, [address] Pat [place]ino[place], [facility]11 Social History Tobacco Use Types Packs/Day [...] EDT Office Visit [facility] [address] [facility] [place] [address] Arvind Tejada DO [facility] [place], [place] [id number] documented as of this encounter Visit Diagnoses Not on filedocumented in this encounter
--- OUTSIDE RECORDS SUMMARY | 2025-06-06 15:31 | XMS_ITS | Encounter Summary ---
Author Organization [facility] Address [address] [place] [address] Care Team Providers Care Torch Operator Name Role Phone Unavailable Primary Care Provider Unavailabl e Encounter Details Date Type Department Care Team (Late st Contact Info) Description 06/06/2024 Clinisync Result Encounter N[facility] External Department Unsolicited Lia Tejada, DO [facility] [place] [address] Social History Tobacco Use Types Packs/Day Years [...] EDT Office Visit [facility] B[facility] OB [address] [place] [phone] Lia Tejada DO [address] [place] [address] documented as of this encounter Procedures Procedure Name Priority Date/Time Associated Diagnosis Comments US OB BPP W NON-STRESS 06/06/2024 6:30 AM EDT documented in this encounter Results * US OB BPP W NON-STRESS (06/06/2024 6:30 AM EDT) Anatomical Region Laterality Modality Other 06/06/2024 6:30 AM EDT Narrative 06/06/2024 6:33 AM EDT [place] [id number] Ultrasound Report Signed Patient: JOHANNA VELASQUEZ MR#: [id number] : 1990 Acct:[id number] Age/Sex: 34 / F ADM Date: 06/04/24 Loc: US Attending Dr: Lia Tejada D.O. Ordering Physician: Lia Tejada D.O. Date of Service: 06/04/24 Procedure(s): US OB BPP w non-stress Accession Number(s): [id number] cc: Lia Tejada D.O.; Physician,Non-Staff [place] [id number] Patient Name: JOHANNA VELASQUEZ MRN: [id number] date: 1990 Sex: F Assigned Patient Location: US Current Patient Location: Accession/Order Number: [id number] Exam Date: 06/04/2024 09:00 Report Date: 06/06/2024 [...] M.D. Signed By: 06/06/24632 DD/ 9 TD/TT: Framing Specialist: Procedure Note Radiology, Radiologist, MD - 06/06/2024 The [place] [id number] Ultrasound Report Signed Patient: JOHANNA VELASQUEZMR#: [id number] : 1990Acct:[id number] Age/Sex: 34 / FADM Date: 06/04/24 Loc: US Attending Dr: Lia Tejada D.O. Ordering Physician: Lia Tejada D.O. Date of Service: 06/04/24 Procedure(s): US OB BPP w non-stress Accession Number(s): [id number] cc: Lia Tejada D.O.; Physician,Non-Staff Estee The [place] [id number] Patient Name: JOHANNA VELASQUEZ MRN: [id number] date: 1990 Sex: F Assigned Patient Location: US Current Patient Location: Accession/Order Number: [id number] Exam Date: 06/04/2024 09:00 Report Date: 06/06/2024 [...] Bey M.D. Signed By:06/06/2433 DD/ 9 TD/TT: Framing Specialist: us Lia Tejada DO [facility] Final Result documented in this encounter Visit Diagnoses Not on filedocumented in this encounter
--- OUTSIDE RECORDS SUMMARY | 2025-06-06 15:31 | XMS_ITS | Encounter Summary ---
Author Organization [facility] Address [address] [place] [address] Care Team Providers Care Appointment Clerk Name Role Phone Unavailable Primary Care Provider Unavailabl e Encounter Details Date Type Department Care Team (Late st Contact Info) Description 06/15/2024 Abstract [facility] OB [address] [place] [address] Lizbeth Lomas LPN [address] [facility] [place] [address] Social History Tobacco Use Types Packs/Day Years [...] EDT Office Visit [facility] OB [address] [place] [address] Arvind Tejada DO [address] [place], [place] [address] documented as of this encounter Visit Diagnoses Not on filedocumented in this encounter
--- OUTSIDE RECORDS SUMMARY | 2025-06-06 15:31 | XMS_ITS | Encounter Summary ---
Author Organization [facility] Address [address] [place] [address] Care Team Providers Care Therapeutic Radiologist Name Role Phone Unavailable Primary Care Provider Unavailabl e Encounter Details Date Type Department Care Team (Late st Contact Info) Description 04/27/2025 Abstract [facility] OB [address] [place] [address] Arvind Tejada, [address] [place], [facility]11 Social History Tobacco Use Types Packs/Day [...] EDT Office Visit [facility] B[facility] OB 102 [facility] [address] Arvind Tejada DO [facility] [place], [place] [address] documented as of this encounter Visit Diagnoses Not on filedocumented in this encounter
--- OUTSIDE RECORDS SUMMARY | 2025-06-06 15:31 | XMS_ITS | Encounter Summary ---
Author Organization [facility] Address [address] [place] [address] Care Team Providers Care Piped Buttonhole Machine Operator Name Role Phone Unavailable Primary Care Provider Unavailabl e Encounter Details Date Type Department Care Team (Late st Contact Info) Description 02/24/2024 Clinisync Result Encounter NOMS External Department Unsolicited Lia Tejada, DO [address] [place] [address] Social History Tobacco Use Types Packs/Day Years [...] 07/13/2025 11:50 AM EDT Office Visit [facility] OB [address] [place] [address] Lia Tejada DO [address] [place] [address] documented as of this encounter Procedures Procedure Name Priority Date/Time Associated Diagnosis Comments US OB ANATOMY 02/24/2024 3:02 PM EDT documented in this encounter Results * US OB ANATOMY (02/24/2024 3:02 PM EDT) Anatomical Region Laterality Modality Other 02/24/2024 3:02 PM EDT Narrative 02/24/2024 3:05 PM EDT [address] [address] Ultrasound Report Signed Patient: JOHANNA VELASQUEZ MR#: [id number] : 1990 Acct:[id number] Age/Sex: 34 / F ADM Date: 02/24/24 Loc: NOMS Attending Dr: Lia Tejada D.O. Ordering Physician: Lia Tejada D.O. Date of Service: 02/24/24 Procedure(s): US OB anatomy Accession Number(s): [id number] cc: Lia Tejada D.O.; Physician,Non-Staff Estee [address] [address] Patient Name: JOHANNA VELASQUEZ MRN: [facility]:[id number] date: 1990 Sex: F Assigned Patient Location: [facility] Current Patient Location: [facility] Accession/Order Number: [id number] Exam Date: 02/24/2024 13:41 Report Date: 02/24/2024 [...] Signed By: 02/24/24 1505 DD/ 1502 TD/TT: Tissue Recovery Technician: Procedure Note Radiology, Radiologist, MD - 02/24/2024 [place] [address] Ultrasound Report Signed Patient: JOHANNA VELASQUEZMR#: [id number] : 1990Acct:[id number] Age/Sex: 34 / FADM Date: 02/24/24 Loc: NOMS Attending Dr: Lia Tejada D.O. Ordering Physician: Lia Tejada D.O. Date of Service: 02/24/24 Procedure(s): US OB anatomy Accession Number(s): [id number] cc: Lia Tejada D.O.; Physician,Non-Staff Estee The [place] [address] Patient Name: JOHANNA VELASQUEZ MRN: [id number] date: 1990 Sex: F Assigned Patient Location: [facility] Current Patient Location: [facility] Accession/Order Number: [id number] Exam Date: 02/24/2024 13:41 Report Date: 02/24/2024 [...] M.D. Signed By:02/24/24 1505 DD/ 1502 TD/TT: Tissue Recovery Technician: us Lia Mallory DO [facility] Final Result documented in this encounter Visit Diagnoses Not on filedocumented in this encounter
--- OUTSIDE RECORDS SUMMARY | 2025-06-06 15:31 | XMS_ITS | Encounter Summary ---
Author Organization [facility] Address [address] [place] [address] Care Team Providers Care Try Out Person Name Role Phone Unavailable Primary Care Provider Unavailabl e Encounter Details Date Type Department Care Team (Late st Contact Info) Description 06/07/[address] [facility] OB [address] [place] [address] Arvind Tejada, [address] [place], [facility]11 Social History Tobacco Use Types [...] Office Visit [facility] OB [address] [facility] [place] [address] Arvind Tejada DO [facility] [place], [place] [address] documented as of this encounter Visit Diagnoses Not on filedocumented in this encounter
--- OUTSIDE RECORDS SUMMARY | 2025-06-06 15:31 | XMS_ITS | Encounter Summary ---
Author Organization [facility] Address [address] [place] [address] Care Team Providers Care Tank Terminal Gauger Name Role Phone Unavailable Primary Care Provider Unavailabl e Encounter Details Date Type Department Care Team (Late st Contact Info) Description 05/27/2024 Clinisync Result Encounter N[facility] External Department Unsolicited Lia Tejada, DO [facility] [place] [address] Social History Tobacco Use Types Packs/Day Years [...] EDT Office Visit [facility] B[facility] OB [address] [place] [address] Lia Tejada 102 [place] [address] documented as of this encounter Procedures Procedure Name Priority Date/Time Associated Diagnosis Comments US OB BPP W NON-STRESS 05/27/2024 2:56 PM EDT documented in this encounter Results * US OB BPP W NON-STRESS (05/27/2024 2:56 PM EDT) Anatomical Region Laterality Modality Other 05/27/2024 2:56 PM EDT Narrative 05/27/2024 2:58 PM EDT [place] [id number] Ultrasound Report Signed Patient: JOHANNA VELASQUEZ MR#: [id number] : 1990 Acct:[id number] Age/Sex: 34 / F ADM Date: 05/27/24 Loc: [facility] 250B-B Attending Dr: Lia Tejada D.O. Ordering Physician: Lia Tejada D.O. Date of Service: 05/27/24 Procedure(s): US OB BPP w non-stress Accession Number(s): [id number] cc: Lia Tejada D.O.; Physician,Non-Staff [place] [address] Patient Name: JOHANNA VELASQUEZ MRN: [id number] date: 1990 Sex: F Assigned Patient Location: US Current Patient Location: US Accession/Order Number: [id number] Exam Date: 05/27/2024 14:15 Report Date: 05/27/2024 [...] Signed By: 05/27/24 1458 DD/ 1456 TD/TT: Hotel Superintendent: Procedure Note Radiology, Radiologist, - 05/27/2024 [place] [address] Ultrasound Report Signed Patient: JOHANNA VELASQUEZMR#: [id number] : 1990Acct:[id number] Age/Sex: 34 / FADM Date: 05/27/24 Loc: [facility] 250B-B Attending [address]: Lia Tejada D.O. Ordering Physician: Lia Tejada D.O. Date of Service: 05/27/24 Procedure(s): US OB BPP w non-stress Accession Number(s): [id number] cc: Lia Tejada D.O.; Physician,Non-Staff Estee The [place] [id number] Patient Name: JOHANNA VELASQUEZ MRN: [id number] date: 1990 Sex: F Assigned Patient Location: US Current Patient Location: US Accession/Order Number: [id number] Exam Date: 05/27/2024 14:15 Report Date: 05/27/2024 [...] M.D. Signed By:05/27/24 1458 DD/ 1456 TD/TT: Hotel Superintendent: us Lia Tejada DO [facility] Final Result documented in this encounter Visit Diagnoses Not on filedocumented in this encounter
--- OUTSIDE RECORDS SUMMARY | 2025-06-06 15:31 | XMS_ITS | Encounter Summary ---
Author Organization [facility] Address [address] [place] [address] Care Team Providers Care Dockworker Name Role Phone Unavailable Primary Care Provider Unavailabl e Encounter Details Date Type Department Care Team (Late st Contact Info) Description 06/13/2024 Abstract [facility] OB [address] [place] [address] Lizbeth Lomas LPN [address] [facility] [place] [address] Social History Tobacco Use Types Packs/Day Years [...] EDT Office Visit [facility] OB [address] [place] [address] Arvind Tejada DO [address] [place], [place] [address] documented as of this encounter Visit Diagnoses Not on filedocumented in this encounter
--- OUTSIDE RECORDS SUMMARY | 2025-06-06 15:31 | XMS_ITS | Encounter Summary ---
Author Organization [facility] Address [address] [place] [address] Care Team Providers Care Interactive Producer Name Role Phone Unavailable Primary Care Provider Unavailabl e Encounter Details Date Type Department Care Team (Late st Contact Info) Description 04/07/2024 Abstract [facility] OB [address] [place] [address] Arvind Tejada, [address] [place], [facility]11 Social History Tobacco Use Types Packs/Day Years [...] EDT Office Visit [facility] OB 102 [facility] [place] [address] Arvind Tejada DO [facility] [place], [place] [address] documented as of this encounter Visit Diagnoses Not on filedocumented in this encounter
--- OUTSIDE RECORDS SUMMARY | 2025-06-06 15:31 | XMS_ITS | Encounter Summary ---
Author Organization [facility] Address [address] [place] [address] Care Team Providers Care Car Scrubber Name Role Phone Unavailable Primary Care Provider Unavailabl e Encounter Details Date Type Department Care Team (Late st Contact Info) Description 06/10/2024 Clinisync Result Encounter NOMS External Department Unsolicited Lia Tejada, DO [facility] [place] [address] Social History Tobacco Use Types Packs/Day Years [...] EDT Office Visit [facility] BCP OB [address] [place] [address] Lia Tejada [address] [place] [address] documented as of this encounter Procedures Procedure Name Priority Date/Time Associated Diagnosis Comments US OB BPP W NON-STRESS 06/10/2024 9:32 AM EDT documented in this encounter Results * US OB BPP W NON-STRESS (06/10/2024 9:32 AM EDT) Anatomical Region Laterality Modality Other 06/10/2024 9:32 AM EDT Narrative 06/10/2024 9:35 AM EDT [address] [address] Ultrasound Report Signed Patient: JOHANNA VELASQUEZ MR#: [id number] : 1990 Acct:[id number] Age/Sex: 34 / F ADM Date: 06/10/24 Loc: [facility] 250-[address]: Lia Tejada D.O. Ordering Physician: Lia Tejada D.O. Date of Service: 06/10/24 Procedure(s): US OB BPP w non-stress Accession Number(s): [id number] cc: Lia Tejada D.O.; Physician,Non-Staff Estee [place] [id number] Patient Name: JOHANNA VELASQUEZ MRN: [id number] date: 1990 Sex: F Assigned Patient Location: [facility] Current Patient Location: [facility] Accession/Order Number: [id number] Exam Date: 06/10/2024 08:50 Report Date: 06/10/2024 [...] Signed By: 06/10/24 0935 DD/ 1 TD/TT: Retail Management Keyholder: Procedure Note Radiology, Radiologist, - 06/10/2024 [place] [address] Ultrasound Report Signed Patient: JOHANNA VELASQUEZMR#: [id number] : 1990Acct:[id number] Age/Sex: 34 / FADM Date: 06/10/24 Loc: [facility] 250-[address]: Lia Tejada D.O. Ordering Physician: Lia Tejada D.O. Date of Service: 06/10/24 Procedure(s): US OB BPP w non-stress Accession Number(s): [id number] cc: Lia Teajda D.O.; Physician,Non-Staff Estee The [place] [phone] Patient Name: JOHANNA VELASQUEZ MRN: [id number] date: 1990 Sex: F Assigned Patient Location: [facility] Current Patient Location: [facility] Accession/Order Number: [id number] Exam Date: 06/10/2024 08:50 Report Date: 06/10/2024 [...] Bey M.D. Signed By:06/10/2435 DD/ 0932 TD/TT: Retail Management Keyholder: us Lia Starro DO [facility] Final Result documented in this encounter Visit Diagnoses Not on filedocumented in this encounter
--- OUTSIDE RECORDS SUMMARY | 2025-06-06 15:31 | XMS_ITS | Encounter Summary ---
Author Organization [facility] Address [address] [place] [address] Care Team Providers Care User Interface Designer Name Role Phone Unavailable Primary Care Provider Unavailabl e Encounter Details Date Type Department Care Team (Late st Contact Info) Description 06/24/2024 Abstract [facility] OB [address] [facility] [address] Candi Ozuna LPN 102 [place] [phone] Social History Tobacco Use Types Packs/Day Years [...] Office Visit [facility] BCP OB [address] [place] [address] Arvind Tejada DO [address] [facility] [place] [address] documented as of this encounter Visit Diagnoses Not on filedocumented in this encounter
--- OUTSIDE RECORDS SUMMARY | 2025-06-06 15:31 | XMS_ITS | Encounter Summary ---
Author Organization [facility] Address [address] [place] [address] Care Team Providers Care Timing Machine Operator Name Role Phone Unavailable Primary Care Provider Unavailabl e Encounter Details Date Type Department Care Team (Late st Contact Info) Description 12/10/2023 Clinisync Result Encounter NOMS External Department Unsolicited Lia Tejada, [facility] [place] [address] Social History Tobacco Use Types Packs/Day Years [...] 07/13/2025 11:50 AM EDT Office Visit [facility] OB [address] [facility] [place] [address] Lia Tejada DO [address] [place] [address] documented as of this encounter Procedures Procedure Name Priority Date/Time Associated Diagnosis Comments US OB TRANSVAGINAL 12/10/2023 1: 24 PM EST documented in this encounter Results * US OB TRANSVAGINAL (12/10/2023 1:24 PM EST) Anatomical Region Laterality Modality Other 12/10/2023 1:24 PM EST Narrative 12/10/2023 1:27 [place] [address] Ultrasound Report Signed Patient: OJHANNA VELASQUEZ MR#: [id number] : 1990 Acct:[id number] Age/Sex: 33 / F ADM Date: 12/10/23 Loc: US Attending Dr: Lia Tejada D.O. Ordering Physician: Lia Tejada D.O. Date of Service: 12/10/23 Procedure(s): US OB transvaginal Accession Number(s): [id number] cc: Lia Tejada D.O.; Physician,Non-Staff [place] [address] Patient Name: JOHANNA VELASQUEZ MRN: [id number] date: 1990 Sex: F Assigned Patient Location: US Current Patient Location: US Accession/Order Number: [id number] Exam Date: 12/10/2023 12:17 Report Date: 12/10/2023 [...] Signed By: 12/10/23 1327 DD/ 23 TD/TT: Clinical Quality Assurance Specialist: Procedure Note Radiology, Radiologist, MD - 12/10/2023 [place] [address] Ultrasound Report Signed Patient: JOHANNA VELASQUEZMR#: [id number] : 1990Acct:[id number] Age/Sex: 33 / FADM Date: 12/10/23 Loc: US Attending Dr: Lia Tejada D.O. Ordering Physician: Lia Tejada D.O. Date of Service: 12/10/23 Procedure(s): US OB transvaginal Accession Number(s): [id number] cc: Lia Tejada D.O.; Physician,Non-Staff Estee The [place] [phone] Patient Name: JOHANNA VELASQUEZ MRN: [id number] date: 1990 Sex: F Assigned Patient Location: US Current Patient Location: US Accession/Order Number: [id number] Exam Date: 12/10/2023 12:17 Report Date: 12/10/2023 [...] Bey M.D. Signed By:12/10/237 DD/ 23 TD/TT: Clinical Quality Assurance Specialist: us Lia Tejada DO [facility] Final Result documented in this encounter Visit Diagnoses Not on filedocumented in this encounter
--- OUTSIDE RECORDS SUMMARY | 2025-06-06 15:31 | XMS_ITS | Clinical Summary ---
Author Organization [facility] Address [id number] [address] [place] [address] Care Team Providers Care Application Assistant Name Role Phone MalloryArvind bearden Primary Care Provider [phone] Allergies No known active allergies Medications ibuprofen [...] on file Insurance [employer] Care Teams Application Assistant Relationship Specialty Start Date End Date Arvind Tejada DO PCP - General Obstetrics & Gynecology 07/05/24
--- OUTSIDE RECORDS SUMMARY | 2025-06-06 15:31 | XMS_ITS | Encounter Summary ---
Author Organization [facility] Address [address] [place] [address] Care Team Providers Care Dual Rate Dealer Name Role Phone Unavailable Primary Care Provider Unavailabl e Encounter Details Date Type Department Care Team (Late st Contact Info) Description 06/23/2024 Abstract N[facility] OB [address] [place] [address] Arvind Tejada, [address] [place], [facility]11 Social History Tobacco Use Types Packs/Day [...] Visit [facility] BCP OB [address] [place] [address] Arvind Tejada DO [facility] [place], [place] [address] documented as of this encounter Visit Diagnoses Not on filedocumented in this encounter
--- OUTSIDE RECORDS SUMMARY | 2025-06-06 15:31 | XMS_ITS | Encounter Summary ---
Author Organization [facility] Address [address] [place] [address] Care Team Providers Care Back Hanger Name Role Phone Unavailable Primary Care Provider Unavailabl e Encounter Details Date Type Department Care Team (Late st Contact Info) Description 04/27/2025 Abstract N[facility] OB [address] [place] [address] Arvind Tejada, [address] [place], [facility]11 Social History Tobacco Use Types Packs/Day Years [...] EDT Office Visit [facility] BCP OB [address] [facility] [place] [address] Arvind Tejada DO [facility] [place], [place] [address] documented as of this encounter Visit Diagnoses Not on filedocumented in this encounter
--- OUTSIDE RECORDS SUMMARY | 2025-06-06 15:31 | XMS_ITS | Encounter Summary ---
Author Organization [facility] Address [address] [place] [address] Care Team Providers Care Electric Organ Checker Name Role Phone Unavailable Primary Care Provider Unavailabl e Encounter Details Date Type Department Care Team (Late st Contact Info) Description 06/22/2024 Abstract [facility] OB [address] [place] [address] Arvind Tejada, [address] [place], [facility]11 Social History Tobacco Use Types Packs/Day [...] EDT Office Visit [facility] BCP OB [address] [place] [address] Arvind Tejada DO [facility] [place], [place] [phone] documented as of this encounter Visit Diagnoses Not on filedocumented in this encounter
--- OUTSIDE RECORDS SUMMARY | 2025-06-06 15:31 | XMS_ITS | Encounter Summary ---
Author Organization [facility] Address [address] [place] [address] Care Team Providers Care Wildlife Refuge Manager Name Role Phone Unavailable Primary Care Provider Unavailabl e Encounter Details Date Type Department Care Team (Late st Contact Info) Description 06/21/2024 Abstract [facility] OB [address] [place] [address] Arvind Tejada, [address] [place], [facility]11 Social History Tobacco Use Types Packs/Day Years [...] Visit [facility] BCP OB 102 [facility] [address] Arvind Tejada DO [facility] [place], [place] [address] documented as of this encounter Visit Diagnoses Not on filedocumented in this encounter
--- OUTSIDE RECORDS SUMMARY | 2025-06-06 15:31 | XMS_ITS | Encounter Summary ---
Author Organization [facility] Address [address] [place] [address] Care Team Providers Care Firmware Developer Name Role Phone Unavailable Primary Care Provider Unavailabl e Encounter Details Date Type Department Care Team (Late st Contact Info) Description 05/19/2024 Clinisync Result Encounter [facility] External Department Unsolicited Yessica Vela PA [address] [facility] [address] [place], [facility] Social History Tobacco Use Types Packs/Day Years [...] EDT Office Visit [facility] OB [address] [facility] [place] [phone] Arvind Tejada DO [address] [facility] [place] [address] documented as of this encounter Procedures Procedure Name Priority Date/Time Associated Diagnosis Comments US OB GROWTH 05/19/2024 1:44 PM EDT documented in this encounter Results * US OB GROWTH (05/19/2024 1:44 PM EDT) Anatomical Region Laterality Modality Other 05/19/2024 1:44 PM EDT Narrative 05/19/2024 1:47 PM EDT [address] [address] Ultrasound Report Signed Patient: JOHANNA VELASQUEZ MR#: [id number] : 1990 Acct:[id number] Age/Sex: 34 / F ADM Date: 05/19/24 Loc: [facility] Attending Dr: Yessica Vela Ordering Physician: Yessica Vela Date of Service: 05/19/24 Procedure(s): US OB growth Accession Number(s): [id number] cc: Yessica Vela; Physician,Non-Staff M.DCarlos [address] [address] Patient Name: JOHANNA VELASQUEZ MRN: [id number] date: 1990 Sex: F Assigned Patient Location: [facility] Current Patient Location: [facility] Accession/Order Number: [id number] Exam Date: 05/19/2024 08:29 Report Date: 05/19/2024 [...] Age by EDC: 33 weeks 6 days FRACNISCO by EDC: 07/01/2024 Age by US: 34 weeks 0 days FRANCISCO by US: 06/30/2024 US/US OB growth IMPRESSION: 1. Single live intrauterine with growth detailed above. Electronically authenticated by: PA QUINN Date: 05/19/2024 13:44 Dictated By: Pa Quinn M.D. Signed By: 05/19/24 1347 DD/ 43 TD/TT: Ram Car Operator: Procedure Note Radiology, Radiologist, - 05/19/2024 [place] [address] Ultrasound Report Signed Patient: JOHANNA VELASQUEZMR#: [id number] : 1990Acct:[id number] Age/Sex: 34 / FADM Date: 05/19/24 Loc: [facility] Attending Dr: Yessica Vela Ordering Physician: Yessica Vela Date of Service: 05/19/24 Procedure(s): US OB growth Accession Number(s): [id number] cc: Yessica Vela; Physician,Non-Staff [place] [address] Patient Name: JOHANNA VELASQUEZ MRN: [facility]:[id number] date: 1990 Sex: F Assigned Patient Location: [facility] Current Patient Location: [facility] Accession/Order Number: [id number] Exam Date: 05/19/2024 08:29 Report Date: 05/19/2024 [...] M.D. Signed By:05/19/24 1347 DD/ 1344 TD/TT: Ram Car Operator: us Yessica SLOAN [facility] Final Result documented in this encounter Visit Diagnoses Not on filedocumented in this encounter
--- OUTSIDE RECORDS SUMMARY | 2025-06-06 15:31 | XMS_ITS | Encounter Summary ---
Author Organization [facility] Address [address] [place] [address] Care Team Providers Care Nurse Researcher Name Role Phone Unavailable Primary Care Provider Unavailabl e Encounter Details Date Type Department Care Team (Late st Contact Info) Description 06/25/2024 Abstract [facility] OB [address] [place] [address] Arvind Tejada, [address] [place], [facility]11 Social History Tobacco Use Types Packs/Day [...] EDT Office Visit [facility] [address] [facility] [place] [address] Arvind Tejada DO [facility] [place], [place] [address] documented as of this encounter Visit Diagnoses Not on filedocumented in this encounter
--- OUTSIDE RECORDS SUMMARY | 2025-06-06 15:32 | XMS_ITS | Clinical Summary ---
Author Organization [facility] Address [address] [place] [address] Care Team Providers Care Highway Research Engineer Name Role Phone Unavailable Primary Care Provider Unavailabl e Allergies No known active allergies Medications metFORMIN XR (Glucophage-XR ) 500 MG 24 hr tabletIndicati ons:Encounter for weight management Take 2 tablets (1,000 mg) by mouth in the evening. Take with meals Do not crush, chew, or split. 30 tablet 11 5 Active phentermine (Adipex-P) 37.5 MG tabletIndicati ons:Encounter for weight management Take 1 tablet (37.5 mg) by mouth in the morning. Take before meals. 90 tablet 5 08/30/20 25 Active phentermine (Adipex-P) 37.5 MG tabletIndicati ons:Encounter for weight management Take 1 tablet (37.5 mg) by mouth in the morning. Take before meals. 30 tablet 5 06/01/20 25 Discontinued phentermine (Adipex-P) 37.5 MG tabletIndicati ons:Encounter for weight management Take 1 tablet (37.5 mg) by mouth in the morning. Take before meals. 30 tablet 5 06/01/20 25 Discontinued phentermine (Adipex-P) 37.5 MG tabletIndicati ons:Encounter for weight management Take 1 tablet (37.5 mg) by mouth in the morning. Take before meals. 30 tablet 5 06/01/20 25 Discontinued Active Problems Problem Noted Date Diagnosed Date Postoperative follow-up 06/01/2025 Encounter for weight management 06/01/2025 Menorrhagia with irregular cycle 06/01/2025 Abnormal bleeding in menstrual cycle 06/01/2025 Encounters Date Type Department Care Team Description 06/01/2025 9:50 AM EDT Procedure Visit [facility] OB [address] [place] [address] Lia Tejada, Postoperative follow-up; Encounter for weight management; Menorrhagia with irregular cycle; Abnormal bleeding in menstrual cycle 05/03/2025 11:00 AM EDT Office Visit [facility] OB [address] [place] [address] Lia Tejada, Encounter for weight management 05/03/2025 Bamboo flowsheet [facility] OB [address] [place] [address] Lia Tejada, DO 04/27/2025 Abstract [facility] OB [address] [place] [address] Lia Tejada, DO 04/27/2025 Abstract [facility] OB [address] [facility] [address] Lia Tejada, DO 04/27/2025 Abstract [facility] OB [address] [facility] [address] Lia Tejada, DO 04/26/2025 Clinisync Result Encounter [facility] External Department Unsolicited Lia Tejada, DO 04/26/2025 Clinisync Result Encounter [facility] External Department Unsolicited Lia Tejada, DO 04/20/2025 Clinisync Result Encounter [facility] External Department Unsolicited Lia Tejada, DO 04/11/2025 Telephone [facility] OB [address] [place] [address] Shari Bertrand LPN 04/03/2025 Telephone [facility] OB [address] [facility] [address] Latanya Barkley, MELI 03/30/2025 11:30 AM EDT Office Visit [facility] OB [address] [facility] [phone] Lia Tejada DO Encounter for weight management; Abnormal uterine bleeding (AUB); Sterilization consult 03/30/2025 11:00 AM EDT Ancillary Procedure [facility] OB [address] [facility] [phone] Intrauterine device surveillance; Abnormal uterine bleeding (AUB) from Last 3 Months Social History Tobacco [...] oz) 06/01/2025 9:55 AM E DT Height 167.6 cm (5' 6 ) 07/06/2024 2:32 PM EDT Body Mass Index 41.04 07/06/2024 2:32 PM EDT Plan of Treatment Upcoming Encounters Date Type Department Care Team (Late st Contact Info) Description 07/13/2025 11:50 AM EDT Office Visit [facility] OB [address] [place] [address] [place] [address] Lia Tejada DO [address] [place] [address] [place] [address] Procedures Procedure Name Priority Date/Time Associated Diagnosis Comments POCT , URINE Routine 06/01/2025 10:05 AM EDT Postoperative follow-up XR CHEST 2V 04/26/2025 1:16 PM EDT [facility] PREG QUANT HCG Routine 04/26/2025 12 :45 PM EDT ALL CBC WITH AUTO DIFF Routine 04/26/2025 12:45 PM EDT XR ABDOMEN 1V 04/20/2025 10:22 AM EDT POCT , URINE Routine 03/30/2025 11:52 AM EDT Encounter for weight management POCT URINALYSIS DIPSTICK Routine 03/30/2025 11:52 AM EDT Encounter for weight management US PELVIS TRANSVAGINAL Routine 03/30/2025 11:41 AM EDT Intrauterine device surveillance Abnormal uterine bleeding (AUB) from Last 3 Months Results * POCT , urine manually resulted (06/01/2025 10:05 AM EDT) Only the most recent of2 resultswithin the time period is included. Preg Test, Ur Negative Negative Urine 06/01/2025 10:0 5 AM EDT Lia Tejada DO POINT OF CARE TEST ENTER/EDIT OR DERABLES Final Result * XR CHEST 2V (04/26/2025 1:16 PM EDT) Anatomical Region Laterality Modality Other 04/26/2025 1:16 PM EDT Narrative 04/26/2025 1:19 [place] [address] XRay Report Signed Patient: JOHANNA VELASQUEZ MR#: [id number] : 1990 Acct:[id number] Age/Sex: 35 / F ADM Date: 04/26/25 Loc: PST Attending Dr: Lia Tejada D.O. Ordering Physician: Lia Tejada D.O. Date of Service: 04/26/25 Procedure(s): XR chest 2V Accession Number(s): [id number] cc: Lia Tejada D.O.; Physician,Non-Staff M.D. The [address] [address] Patient Name: JOHANNA VELASQUEZ MRN: [id number] date: 1990 Sex: F Assigned Patient Location: SURGOUT Current Patient Location: [facility] Accession/Order Number: [id number] Exam Date: 04/26/2025 13:15 Report Date: 04/26/2025 13:16 At the request of: LIA TEJADA DO Procedure: XR chest 2V PA [...] Andrade M.D. 04/26/2025 1:16 PM Dictation Location: [place] [address] Electronically authenticated by: [id number] Date: 04/26/2025 13:16 Dictated By: Shari Andrade M.D. Signed By: 04/26/25 1319 DD/ 1316 TD/TT: Occupational Health And Safety Adviser: Procedure Note Radiology, Radiologist, MD - 04/26/2025 [place] [address] XRay Report Signed Patient: JOHANNA VELASQUEZMR#: [id number] : 1990Acct:[id number] Age/Sex: 35 / FADM Date: 04/26/25 Loc: PST Attending Dr: Lia Tejada D.O. Ordering Physician: Lia Tejada D.O. Date of Service: 04/26/25 Procedure(s): XR chest 2V Accession Number(s): [id number] cc: Lia Tejada D.O.; Physician,Non-Staff Estee The [address] [address] Patient Name: JOHANNA VELASQUEZ MRN: [id number]:[id number] date: 1990 Sex: F Assigned [facility] Accession/Order Number: [id number] Exam Date: 04/26/2025 13:15 Report Date: 04/26/2025 13:16 At the request of: LIA TEJADA DO Procedure: XR chest 2V PA AND LATERAL CHEST: CLINICAL HISTORY: Preoperative clearance COMPARISON: None There is no focal parenchymal consolidation, effusion or pneumothorax.The cardiac, hilar and mediastinal silhouettes are within normal limits.There is no vascular congestion. The visualized bony thorax is intact. XR/XR chest 2V IMPRESSION: NO ACUTE CARDIOPULMONARY ABNORMALITY. Impression dictated by: Shari Andrade M.D. 04/26/2025 1:16 PM Dictation Location: [place] [address] Electronically authenticated by: [id number] Y Date: 3:16 Dictated By: Shari Andrade M.D. Signed By:04/26/25 1319 DD/ 1316 TD/TT: Occupational Health And Safety Adviser: Lia Mallory DO [facility] Final Result * [facility] PREG QUANT HCG (04/26/2025 12:45 PM EDT) HCG QUANTITATIVE <1 mIU/mL [facility] Comment: 5-50 0.2-1 WEEK 50-500 1-2 WEEKS 100-5,000 2-3 WEEKS 500-10,000 3-4 WEEKS 1,000-50,000 4-5 WEEKS 10,000-100,000 5-6 WEEKS 15,000-200,000 6-8 WEEKS 10,000-100,000 2-3 MONTHS 04/26/2025 12:4 5 PM EDT 04/26/2025 12:52 PM EDT Narrative [facility] - 04/26/2025 1:47 PM EDT us Lia Mallory DO [facility] * ([facility]NORMAL) ALL CBC WITH AUTO DIFF (04/26/2025 12:45 PM EDT) [facility] WBC 5.1 4.0 - 11.0 10 3/uL TB[facility] TBH RBC 4.65 4.20 - 5.40 10 6/uL [facility] TBH HGB 11.6(L) 12.0 - 16.0 g/dL TBH TBH HCT 36.2 36.0 - 48.0 % [facility] TBH MCV 77.8(L) 81.0 - 99.0 fL TBH TBH MCH 24.9(L) 26.7 - 34.0 pg TBH TBH MCHC 32.0 29.9 - 35.2 g/dL TBH TBH RDW 16.1(H) 11.0 - 15.0 % TBH TBH PLT 182 150 - 450 10 3/uL TBH TBH MPV 11.9 9.5 - 13.5 fL [facility]H NEUTROPHILS PERCENT AUTO 54.8 43.0 - 75.0 % TBH LYMPHOCYTES PERCENT AUTO 33.3 20.5 - 60.0 % TB[facility] MONOCYTES PERCENT AUTO 9.5 1.7 - 12.0 % [facility] TBH EO % 1.6 0.9 - 7.0 % [facility] BASOPHILS PERCENT AUTO 0.6 0.2 - 2.0 % [facility] IMMATURE GRANULOCYTES PCT AUTO 0.2 0.0 - 0.5 % [facility] NEUTROPHILS ABSOLUTE AUTO 2.8 1.4 - 6.5 10 3/uL TBH LYMPHOCYTES ABSOLUTE AUTO 1.7 1.2 - 3.8 10 3/uL TBH MONOCYTES ABSOLUTE AUTO 0.5 0.3 - 0.8 10 3/uL TBH TBH EO # 0.1 0.0 - 0.7 10 3/uL TBH BASOPHILS ABSOLUTE AUTO 0.0 0.0 - 0.1 10 3/uL [facility] IMMATURE GRANULOCYTES ABS AUTO 0.01 0.00 - 0.03 10 3/uL [facility] 04/26/2025 12:4 5 PM EDT 04/26/2025 12:52 PM EDT Narrative [facility] - 04/26/2025 1:09 PM EDT Lia Tejada DO [facility] Final Result [facility] * XR ABDOMEN 1V (04/20/2025 10:22 AM EDT) Anatomical Region Laterality Modality Other 04/20/2025 10:2 2 AM EDT Narrative 04/20/2025 10:25 AM EDT [address] [address] XRay Report Signed Patient: JOHANNA VELASQUEZ MR#: [id number] : 1990 Acct:[id number] Age/Sex: 35 / F ADM Date: 04/20/25 Loc: [place] Attending Dr: Lia Tejada D.O. Ordering Physician: Lia Tejada D.O. Date of Service: 04/20/25 Procedure(s): XR abdomen 1V Accession Number(s): [id number] cc: Lia Tejada D.O.; Physician,Non-Staff [place] [id number] Patient Name: JOHANNA VELASQUEZ MRN: [id number] date: 1990 Sex: F Assigned Patient Location: [facility] Current Patient Location: [facility] Accession/Order Number: [id number] Exam Date: 04/20/2025 10:20 Report Date: 04/20/2025 [...] Andrade M.D. 04/20/2025 10:22 AM Dictation Location: [place] [address] Electronically authenticated by: [id number] Y Date: 04/20/2025 10:22 Dictated By: Shari Andrade M.D. Signed By: 04/20/25 1025 DD/ 1022 TD/TT: Occupational Health And Safety Adviser: Procedure Note Radiology, Radiologist, - 04/20/2025 [place] [address] XRay Report Signed Patient: JOHANNA VELASQUEZMR#: [id number] : 1990Acct:[id number] Age/Sex: 35 / FADM Date: 04/20/25 Loc: RAD Attending Dr: Lia Tejada D.O. Ordering Physician: Lia Tejada D.O. Date of Service: 04/20/25 Procedure(s): XR abdomen 1V Accession Number(s): [id number] cc: Lia Tejada D.O.; Physician,Non-Staff Estee The [place] [address] Patient Name: JOHANNA VELASQUEZ MRN: [id number] date: 1990 Sex: F Assigned Patient Location: [facility] Current Patient Location: [facility] Accession/Order Number: [id number] Exam Date: 04/20/2025 10:20 Report Date: 04/20/2025 [...] Andrade M.D. 04/20/2025 10:22 AM Dictation Location: [place] [address] Electronically authenticated by: [id number] Y Date: 0:22 Dictated By: Shari Andrade M.D. Signed By:04/20/25 1025 DD/ 1022 TD/TT: Occupational Health And Safety Adviser: us Lia Mallory DO [facility] Final Result * (ABNORMAL) POCT urinalysis dipstick manually resulted (03/30/2025 11:52 AM EDT) Color, UA Yellow Clarity, UA Clear Glucose, UA Negative Negative - 2000(110) ++++ mg/dL Bilirubin, UA Negative Negative - 4(70) +++ mg/dL Ketones, UA Positive Negative - 160(16) ++++ mg/dL Comment:trace Spec Grav, UA 1.030 1 - 1.03 Blood, UA Positive Negative - 50 Sunny/mcL Comment:small pH, UA 5.5 5 - 9 Protein, UA Negative Negative - 2000(20) ++++ mg/dL Urobilinogen, UA 1.0 0.2 - 12 mg/dL Leukocytes, UA Negative Negative - 500+++ Donis/mcL Nitrite, UA Negative Negative - Positive Urine 03/30/2025 11:5 2 AM EDT Lia Mallory DO POINT OF CARE TEST [...] report is generated using voice recognition reporting ([employer] On occasion, [employer] erroneously drops words from the report or replaces the spoken word with a similar sounding word. Please call with any questions/concerns regarding the report. Dictated and transcribed 03/30/2025/jf This report has been electronically signed and [...] report is generated using voice recognition reporting ([employer]On occasion, [employer] erroneously drops words from the report orreplaces the spoken word with a similar sounding word. Please call withany questions/concerns regarding the report. Dictated and transcribed 03/30/2025/jf This report has been electronically signed and approved by theinterpreting radiologist. us Lia Mallory DO IMG US PROCEDURES Final Result from Last 3 Months Insurance [employer]
== END 2025-06-01 15:29 | disposition home or self-care (01) ==
LOC: LAB 15:28
PROVIDERS: Visit Provider Obstetrics & Gynecology
DX: N92.0 Excessive and frequent menstruation with regular cycle (principal)
CPT/HCPCS: 88305

== ENCOUNTER 2025-06-21 08:55 | Outpatient (OUT) | payer OTHER, SELFPAY ==
--- OUTSIDE RECORDS SUMMARY | 2025-06-21 09:18 | XMS_ITS | CCD ---
Author Organization [facility] Care Team Providers [employer] M[employer] Supervisor Name Role Phone Killian, Omid Sandadi Unavailable Unavailabl e MOROCCO, VANESSA Unavailable Unavailable KILLIAN, OMID SANDADI Unavailable Unavailabl e SYSTEM, PROVIDER NOT IN Unavailable Unavaila ble TRACY, NOWWAR GHAZI YASIN Unavailable Unav ailable LOGAN ZAMAN Unavailable Unavailabl e KILLIAN, OMID SANDADI Unavailable Unavailabl e Killian, Omid Sandadi Primary Care Provider [phone] KILLIAN, OMID SANDADI Primary Care Unavailabl e ALICIA HUDSON Attending Unavailable MD Radha Tomas Attending Provider [phone] KAI FERGUSON Attending Unavailable Unavailable Primary Care Provider Unavailabl e Arvind Tejada DO Attending Provider MALLORY, ARVIND Attending Unavailable MALLORY, ARVIND Attending Unavailable MALLORY, ARVIND Attending Unavailable MALLORY, ARVIND Attending Unavailable MALLORY, ARVIND Attending Unavailable MALLORY, ARVIND Attending Unavailable YESSICA GOVEA Attending Unavailable YESSICA GOVEA Attending Unavailable MALLORY, ARVIND Attending Unavailable MALLORY, ARVIND Attending Unavailable MALLORY, ARVIND Attending Unavailable Radha Tomas Admitting Unavailable Radha Tomas Attending Unavailable Mallory, Arvind Admitting Unavailable Mallory, Arvind Attending Unavailable Mallory, Arvind Admitting Unavailable Mallory, Arvind Attending Unavailable Medications Current Medications Medication Drug Class(es) Dates Sig (Normalized) Sig (Original) adapalene 0.003 mg/mg / benzoyl peroxide 0.025 mg/mg topical gel (4 sources) Retinoid Start: 05-17-2018 adapalene-benzoyl peroxide (EPIDUO FORTE) 0.3-2.5 % GlwP Apply 1 application topically daily. 45 g 1 05/17/2018 Active 24 hr metFORMIN hydrochloride 500 mg extended release oral tablet (12 sources) Biguanide Start: 03-30-2025 End: 04-29-2025 take 2 tablets by mouth every twenty-four hours at mealtime metFORMIN XR (Glucophage-XR) 500 MG 24 hr tablet Indications: Encounter for weight management Take 2 tablets (1,000 mg) by mouth in the evening. Take with meals Do not crush, chew, or split. 30 tablet 11 03/30/2025 Active Start: 03-02-2025 End: 04-01-2025 take 1 [...] hours if needed 06/28/2024 08/16/2024 Discontinued (Other) levonorgestrel 0.784465 mg/hr intrauterine system (12 sources) Progestin, Progestin-containing Intrauterine Device Start: 08-16-2024 End: 08-15-2029 Levonorgestrel intrauterine device 52 mg phentermine hydrochloride 37.5 mg oral tablet (13 sources) Sympathomimetic Amine Anorectic Start: 03-30-2025 End: 08-30-2025 take 1 tablet by mouth before mealtime phentermine (Adipex-P) 37.5 MG tablet Indications: Encounter for weight management Take 1 tablet (37.5 mg) by mouth in the morning. Take before meals. 30 tablet 06/01/2025 06/01/2025 Discontinued Jrjxfgde-Qjs-As-FA ( 1 + IRON PO) (3 sources) End: 08-16-2024 Xutdjpmy-Vdr-Zn-FA ( 1 + IRON PO) Take by mouth 08/16/2024 Discontinued (Other) Multivi t-Min-Fe-FA ( 1 + IRON PO) Take by mouth Active 2 ml rho(d) immune globulin, human 750 unt/ml prefilled syringe (1 source) Human Immunoglobulin G Start: 07-14-2020 End: 07-14-2020 rho(d) immune globulin (RHOPHYLAC) injection 300 mcg Problems Active Problems Problem Classification Problem Date Documented Date Episodic/Chronic Contraceptive and procreative management (13 sources) Patient encounter status; Translations: [Encounter for insertion of intrauterine contraceptive device] Onset: 06-01-2025 08-16-2024 Episodic Hemorrhage during ; abruptio placenta; placenta previa (1 source) Threatened miscarriage; Translations: [Threatened ] Episodic Medical examination/evaluatio n (2 sources) Encounter for preprocedural cardiovascular examination; Translations: [Encounter for preprocedural cardiovascular examination] Onset: 06-14-2018 Episodic Menstrual disorders (4 sources) Menometrorrhagia; Translations: [Excessive and frequent menstruation with irregular cycle] Onset: 06-01-2025 06-01-2025 Chronic Other aftercare (2 sources) Surgical follow-up; Translations: [Encounter for follow-up examination after completed treatment for conditions other than malignant neoplasm] Onset: 06-01-2025 06-01-2025 Episodic Other female genital disorders (4 sources) [...] Test Name Value Interpretation Reference Range Facility Endometrial biopsyon 025 Latanya Barkley LPN 06/12/2025 11:42 AM Endometrial biopsy Date/Time: 06/01/2025 10:19 AM Performed by: Arvind Tejada DO Authorized by: Arvind Tejada DO Consent: Consent obtained: written Consent given by: patient Patient agrees, verbalizes understanding, and wants to proceed: yes Indications: Indications: abnormal uterine bleeding and other menstrual disorder Pre-procedure: Urine test: negative Procedure: A bimanual exam was performed: no Prepped with: none Tenaculum used: yes A local block was performed: no Cervix dilated: no Number of passes: 2 Findings: Cervix: normal Specimen collected: specimen collected and sent to pathology Patient tolerance: tolerated well, no immediate complications [facility] HCG ( test) Ql (U)o n 06-01-2025 Interpretation and review of laboratory results Normal [facility] Preg Test, Ur Negative Negative [facility] Lacho 06-01-2025 L - -------- Specimen: [id number] Received: 06/05/25 Status: WILBER Anders Num: [id number] Spec Type: Surgical Subm Dr: Arvind Tejada Tissues: A Endometrium - Biopsy (ENDOMETRIAL BX) Procedures: DEVANG/Kalia Isabel/Mihir L4 -------- Age/ Patient Sex Location Account Attending Physician -------- Sabrina Velasquez 35/F LABEL [id number] Arvind Tejada -------- SPEC NUM: [id number] RECD: 06/05/25 STATUS: WILBER CHAGO NUM: [id number] MELISSA: 06/01/25- SUBM DR: Arvind Tejada ENTERED: 06/05/25 [facility] DR: Ashish,Lab SPEC TYPE: Surgical DEPT: SHREYA GUIDO ENTERED BY: [id number] RECV BY: [id number] ORDERED: HE/2, Gross/Micro L4 ORDERED: HE/2, Gross/Micro [...] submitted in a single cassette. (1, ns, [id number]) Microscopic Description Microscopic examination is performed. -------- Specimen: [id number] Received: 06/05/25 Status: [place] Anders Num: [id number] Spec Type: Surgical Subm Dr: Arvind Tejada Tissues: A Endometrium - Biopsy (ENDOMETRIAL BX) Procedures: HE/2, Gross/Micro L4 -------- Patient: Sabrina Velasquez [id number] (Continued) -------- Specimen: [id number] Received: 06/05/25 (Continued) Signed (signature on file) Andrae Flores MD 06/06/25 1206 -------- Specimen: [id number] Received: 06/05/25 Status: WILBER nAders Num: [id number] Spec Type: Surgical Subm Dr: Arvind Tejada Tissues: A Endometrium - Biopsy (ENDOMETRIAL BX) Procedures: Kalia STEIN/Mihir L4 -------- Patient: Sabrina Velasquez [id number] (Continued) -------- Specimen: [id number] Received: 06/05/25 (Continued) CPT Codes 70436 -------- -------- Specimen: [id number] Received: 06/05/25 Status: WILBER Anders Num: [id number] Spec Type: Surgical Subm Dr: Arvind Tejada Tissues: A Endometrium - Biopsy (ENDOMETRIAL BX) Procedures: Kalia STEIN/Mihir L4 -------- Patient: Sabrina Velasquez [id number] (Continued) -------- Signed (signature on file) Andrae Flores MD 06/06/25 1206 Normal [facility] Lacho 04-27-2025 L - -------- Specimen: [id number] Received: 04/28/25 Status: [place] Anders Num: [id number] Spec Type: Surgical Subm Dr: Arvind Tejada Tissues: A Fallopian Tube - Sterilization (BILATERAL FALLOPIAN TUBES) Procedures: Kalia STEIN/Mihir L2 -------- Age/ Patient Sex Location Account Attending Physician -------- Sabrina Velasquez 35/F LABELL [id number] Arvind Tejada -------- SPEC NUM: [id number] RECD: 04/28/25 STATUS: WILBER ANDERS NUM: [id number] MELISSA: 04/27/[address] [facility] [address]: Arvind Tejada ENTERED: 04/28/[address] [facility] DR: Ashish,Lab SPEC TYPE: Surgical DEPT: SHREYA GUIDO ENTERED BY: [id number] RECV BY: [id number] ORDERED: HE/2, Gross/Micro L2 ORDERED: HE/2, Gross/Micro [...] A1 Entirety of trisected fimbriated end and medical service representative cross-sections from shorter tube A2 Entirety of trisected fimbriated end and medical service representative cross-sections from longer tube (2, , [id number] A)JG -------- Specimen: [id number] Received: 04/28/25 Status: WILBER Chago Num: [id number] Spec Type: Surgical Subm Dr: Arvind Tejada Tissues: A Fallopian Tube - Sterilization (BILATERAL FALLOPIAN TUBES) Procedures: HE/2, Gross/Micro L2 -------- Patient: SherSabrina E [id number] (Continued) -------- Specimen: [id number] Received: 04/28/25 (Continued) Signed (signature on file) Julia Sanchez MD 05/01/25 1443 -------- Specimen: [id number] Received: 04/28/25 Status: WILBER Anders Num: [id number] Spec Type: Surgical Subm Dr: Arvind Tejada Tissues: A Fallopian Tube - Sterilization (BILATERAL FALLOPIAN TUBES) Procedures: HE/2, Kalai/Mihir L2 -------- Patient: Sabrina Velasquez [id number] (Continued) -------- Specimen: [id number] Received: 04/28/25 (Continued) Microscopic Description Microscopic examination is performed CPT Codes 67347 -------- -------- Specimen: [id number] Received: 04/28/25 Status: WILBER Anders Num: [id number] Spec Type: Surgical Subm Dr: Arvind Tejada Tissues: A Fallopian Tube - Sterilization (BILATERAL FALLOPIAN TUBES) Procedures: HE/2, Gross/Micro L2 -------- Patient: Sabrina Velasquez [id number] (Continued) -------- Signed (signature on file) Jaquan-Andrea Sanchez MD 05/01/25 1443 Normal [facility] ALL CBC WITH AUTO DIFFon BASOPHILS ABSOLUTE AUTO 0 [facility] Basophils/100 WBC (Bld) 0.6 % 0.2 - 2.0 % [facility] Eosinophils/100 WBC (Bld) 1.6 % 0.9 - 7.0 % [facility] Erythrocyte distribution width (RBC) [Ratio] 16.1 % High 11.0 - 15.0 % [facility] Hematocrit (Bld) [Volume fraction] 36.2 % 36.0 - 48.0 % [facility] Hemoglobin (Bld) [Mass/Vol] 11.6 g/dL Low 12.0 - 16.0 g/dL [facility] IMMATURE GRANULOCYTES ABS AUTO 0.01 [facility] Immature granulocytes/100 WBC (Bld) 0.2 % 0.0 - 0.5 % [facility] Interpretation and review of laboratory results Abnormal [facility] LYMPHOCYTES ABSOLUTE AUTO 1.7 [facility] Lymphocytes/100 WBC (Bld) 33.3 % 20.5 - 60.0 % [facility] MCH (RBC) [Entitic mass] 24.9 pg Low 26.7 - 34.0 pg [facility] MCHC (RBC) [Mass/Vol] 32 g/dL 29.9 - 35.2 g/dL [facility] MCV (RBC) [Entitic vol] 77.8 fL Low 81.0 - 99.0 fL [facility] MONOCYTES ABSOLUTE [facility].5 [facility] Monocytes/100 WBC (Bld) 9.5 % 1.7 - 12.0 % [facility] NEUTROPHILS ABSOLUTE AUTO 2.8 [facility] Neutrophils/100 WBC (Bld) 54.8 % 43.0 - 75.0 % [facility] Platelet mean volume (Bld) [Entitic vol] 11.9 fL 9.5 - 13.5 fL [facility] EO # 0.1 [facility] PLT 182 [facility] RBC 4.65 [facility] WBC 5.1 [facility] XR CHEST 2Von 04-26-2025 [place] [address] XRay Report Signed Patient: SABRINA VELASQUEZ MR#: [id number] : 1990 Acct:[id number] Age/Sex: 35 / F ADM Date: 04/26/25 Loc: [facility] Attending Dr: Arvind Tejada D.O. Ordering Physician: Arvind Tejada D.O. Date of Service: 04/26/25 Procedure(s): XR chest 2V Accession Number(s): [id number] cc: Arvind Tejada D.O.; Physician,Non-Staff [place] [address] Patient Name: SABRINA VELASQUEZ MRN: [facility]:[id number] date: 1990 Sex: F Assigned Patient Location: [facility] Current Patient Location: [facility] Accession/Order Number: [id number] Exam Date: 04/26/2025 13:15 Report Date: 04/26/2025 [...] 04/26/2025 1:16 PM Dictation Location: [place] [address] Electronically authenticated by: [id number] Y Date: 04/26/2025 13:16 Dictated By: Shari Andrade M.D. Signed By: 04/26/25 1319 DD/ 1316 TD/TT: Medical Imaging Technologist: [facility] Radiology, Radiologist, MD - 04/26/2025 [place] [address] XRay Report Signed Patient: SABRINA VELASQUEZ MR#: [id number] : 1990 Acct:[id number] Age/Sex: 35 / F ADM Date: 04/26/25 Loc: [facility] Attending Dr: Arvind Tejada D.O. Ordering Physician: Arvind Tejada D.O. Date of Service: 04/26/25 Procedure(s): XR chest 2V Accession Number(s): [id number] cc: Arvind Tejada D.O.; Physician,Non-Staff [place] [address] Patient Name: SABRINA VELASQUEZ MRN: [facility]:[id number] date: 1990 Sex: F Assigned Patient Location: [facility] Current Patient Location: [facility] Accession/Order Number: [id number] Exam Date: 04/26/2025 13:15 Report Date: 04/26/2025 [...] 04/26/2025 1:16 PM Dictation Location: [place] [address] Electronically authenticated by: [id number] Y Date: 04/26/2025 13:16 Dictated By: Shari Andrade M.D. Signed By: 04/26/25 1319 DD/ 15 TD/TT: Medical Imaging Technologist: [facility] [employer] Radiology Study observation (narrative) [facility] XR CHEST [facility]Or[facility]: [facility]-26-2025 [facility] Work Phone: HCG ( test) Ql (U)o n 03-30-2025 Interpretation and review of laboratory results Normal [facility] Preg Test, Ur Negative Negative [facility] US PELVIS TRANSVAGINALon US PELVIS TRANSVAGINAL [...] report is generated using voice recognition reporting ([employer]). On occasion, [employer] erroneously drops words from the report or [...] UA Negative Negative - 4(70) +++ mg/dL [facility] Blood, UA Positive Negative - 50 Sunny/mcL [facility] Comment on above: small Clarity, UA Clear [facility] Color, UA Yellow [facility] Glucose, UA Negative Negative - 2000(110) ++++ mg/dL [facility] Interpretation and review of laboratory results Abnormal [facility] Ketones, UA Positive Negative - 160(16) ++++ mg/dL [facility] Comment on above: trace Leukocytes, UA Negative Negative - 500+++ Donis/mcL [facility] Nitrite, UA Negative Negative - Positive [facility] pH, UA 5.5 5 - 9 [facility] Protein, UA Negative Negative - 1999(20) ++++ mg/dL [facility] Spec Grav, UA 1.03 1 - 1.03 [facility] Urobilinogen, UA 1.0 0.2 - 12 mg/dL [facility] Urinalysis macro (dipstick) panel (U)on 03-02-2025 Bilirubin, UA Negative Negative - 4(70) +++ mg/dL [facility] Blood, UA Negative Negative - 50 Sunny/mcL [facility] Clarity, UA Clear [facility] Color, UA Yellow [facility] Glucose, UA Negative Negative - 1999(110) ++++ mg/dL [facility] Interpretation and review of laboratory results Normal [facility] Ketones, UA Positive Negative - 160(16) ++++ mg/dL [facility] Comment on above: trace Leukocytes, UA Negative Negative - 500+++ Donis/mcL [facility] Nitrite, UA Negative Negative - Positive [facility] pH, UA 5.5 5 - 9 [facility] Protein, UA Negative Negative - 1999(20) ++++ mg/dL [facility] Spec Grav, UA 1.025 1 - 1.03 [facility] Urobilinogen, UA 1.0 0.2 - 12 mg/dL [facility] HCG ( test) Ql (U)o n 08-24-2024 Interpretation and review of laboratory results Normal [facility] Preg Test, Ur Negative [facility] IUD Insertionon 08-16-2024 Shari Bertrand LPN 08/24/2024 12:25 PM IUD Insertion Date/Time: 08/16/2024 1:40 PM Performed by: Arvind Tejada DO Authorized by: Arvind Tejada DO Consent: Consent obtained: Written Consent given by: Patient Procedure risks and benefits discussed: yes Patient questions answered: yes Patient agrees, verbalizes understanding, and wants to proceed: yes Educational handouts given: yes Instructions and paperwork completed: yes [place] protocol: Patient states understanding of procedure being [...] will follow up after next period: no [facility] CBC AND AUTO DIFFon 07-05-20 24 ABSOLUTE BASOPHIL 0.0 X10E9/L Normal 0.0-0.2 [facility] Comment on above: Performed By: #### C BCA, CMP #### [facility] ([id number]) [address] [place] [address] 79574 ABSOLUTE NEUTROPHIL 5.8 X10E9/L Normal 1.5-6.6 [facility] Comment on above: Performed By: #### C BCA, CMP #### [facility] ([id number]) [address] [place] [address] 13558 Basophils/100 WBC (Bld) 0.3 % Normal [facility] Comment on above: Performed By: #### C BCA, CMP #### [facility] ([id number]) [address] [place] [address] 86860 Eosinophils (Bld) [#/Vol] 0.1 10*3/uL Normal 0.0-0.4 [facility] Comment on above: Performed By: #### C BCA, CMP #### [facility] ([id number]) [address] [place] [address] 61119 Eosinophils/100 WBC (Bld) 1.1 % Normal [facility] Comment on above: Performed By: #### C BCA, CMP #### [facility] ([id number]) [address] [place] [address] 78103 Erythrocyte distribution width (RBC) [Ratio] 13.0 % Normal 11.5-15.0 [facility] Comment on above: Performed By: #### C MANOJ, CMP #### [facility] ([id number]) [address] [place] [address] 32981 Hematocrit (Bld) [Volume fraction] 25.9 % Low 35-47 [facility] Comment on above: Performed By: #### C MANOJ, CMP #### [facility] ([id number]) [address] [place] [address] 78189 Hemoglobin (Bld) [Mass/Vol] 9.0 g/dL Low 11.7-15.5 [facility] Comment on above: Performed By: #### C MANOJ, CMP #### [facility] ([id number]) [address] [place] [address] 87870 Lymphocytes (Bld) [#/Vol] 1.8 10*3/uL Normal 1.0-3.5 [facility] Comment on above: Performed By: #### C MANOJ, CMP #### [facility] ([id number]) [address] [place] [address] 91209 Lymphocytes/100 WBC (Bld) 21.5 % Normal [facility] Comment on above: Performed By: #### C MANOJ, CMP #### [facility] ([id number]) [address] [place] [address] 56084 MCH (RBC) [Entitic mass] 31.4 pg Normal 27-34 [facility] Comment on above: Performed By: #### C BCA, CMP #### [facility] ([id number]) [address] [place] [address] 40166 MCHC (RBC) [Mass/Vol] 34.7 g/dL Normal 32-36 [facility] Comment on above: Performed By: #### C BCA, CMP #### [facility] ([id number]) [address] [place] [address] 74345 MCV (RBC) [Entitic vol] 90 fL Normal 80-100 [facility] Comment on above: Performed By: #### C BCA, CMP #### [facility] ([id number]) [address] [place] [address] 35634 Monocytes (Bld) [#/Vol] 0.5 10*3/uL Normal 0-0.9 [facility] Comment on above: Performed By: #### C BCA, CMP #### [facility] ([id number]) [address] [place] [address] 19496 Monocytes/100 WBC (Bld) 6.5 % Normal [facility] Comment on above: Performed By: #### C MANOJ, CMP #### [facility] ([id number]) [address] [place] [address] 51120 Neutrophils/100 WBC (Bld) 70.6 % Normal [facility] Comment on above: Performed By: #### C BCA, CMP #### [facility] ([id number]) [address] [place] [address] 68324 Platelet mean volume (Bld) [Entitic vol] 8.9 fL Normal 7-12 [facility] Comment on above: Performed By: #### C BCA, CMP #### [facility] ([id number]) [address] [place] [address] 38471 Platelets (Bld) [#/Vol] 239 10*3/uL Normal 150-450 [facility] Comment on above: Performed By: #### C BCA, CMP #### [facility] ([id number]) [address] [place] [address] 22042 RBC COUNT 2.86 X10E12/L Low 3.80-5.20 [facility] Comment on above: Performed By: #### C BCA, CMP #### [facility] ([id number]) [address] [place] [address] 63150 WBC (Bld) [#/Vol] 8.3 10*3/uL Normal 4.0-11.0 [facility] Comment on above: Performed By: #### C BCA, CMP #### [facility] ([id number]) [address] [place] [address] 87480 COMPREHENSIVE METABOLIC PANE [place]acho 07-05-2024 Albumin [Mass/Vol] 2.6 g/dL Low 3.2-5.3 [facility] Comment on above: Performed By: #### C BCA, CMP #### [facility] ([id number]) [address] [place] [address] 11465 ALP [Catalytic activity/Vol] 84 U/L Normal 39-130 [facility] Comment on above: Performed By: #### C BCA, CMP #### [facility] ([id number]) [address] [place] [address] 14176 ALT [Catalytic activity/Vol] 16 U/L Normal 0-31 [facility] Comment on above: Performed By: #### C BCA, CMP #### [facility] ([id number]) [address] [place] [address] 25608 Anion gap [Moles/Vol] 6 mmol/L Normal 5-15 [facility] Comment on above: Performed By: #### C BCA, CMP #### [facility] ([id number]) [address] [place] [address] 23309 AST [Catalytic activity/Vol] 14 U/L Normal 0-41 [facility] Comment on above: Performed By: #### C BCA, CMP #### [facility] ([id number]) [address] [place] [address] 98902 Bilirubin [Mass/Vol] 0.4 mg/dL Normal 0.3-1.2 [facility] Comment on above: Performed By: #### C BCA, CMP #### [facility] ([id number]) [address] [place] [address] 64096 Calcium [Mass/Vol] 7.8 mg/dL Low 8.5-10.5 [facility] Comment on above: Performed By: #### C BCA, CMP #### [facility] ([id number]) [address] [place] [address] 45424 Chloride [Moles/Vol] 110 mmol/L High 98-109 [facility] Comment on above: Performed By: #### C BCA, CMP #### [facility] ([id number]) [address] [place] [address] 74996 CO2 [Moles/Vol] 23 mmol/L Normal 22-32 [facility] Comment on above: Performed By: #### C BCA, CMP #### [facility] ([id number]) [address] [place] [address] 51307 Creatinine [Mass/Vol] 0.50 mg/dL Normal 0.40-1.00 [facility] Comment on above: Result Comment: METH OD TRACEABLE TO IDMS STANDARD Performed By: #### C BCA, CMP #### [facility] ([id number]) [address] [place] [address] 42423 eGFR (CKD-EPI) NON-RACE DEPENDENT >90 Normal >59 [facility] Comment on above: Result Comment: Reported eGFR is based on the CKD-EPI 2020 equation that does not use a race coefficient. Performed By: #### C BCA, CMP #### [facility] ([id number]) [address] [place] [address] 09227 Glucose [Mass/Vol] 93 mg/dL Normal 65-99 [facility] Comment on above: Performed By: #### C BCA, CMP #### [facility] ([id number]) [address] [place] [address] 34006 Potassium [Moles/Vol] 3.7 mmol/L Normal 3.5-5.0 [facility] Comment on above: Performed By: #### C BCA, CMP #### [facility] ([id number]) [address] [place] [address] 09055 Protein [Mass/Vol] 5.9 g/dL Low 6.0-8.0 [facility] Comment on above: Performed By: #### C BCA, CMP #### [facility] ([id number]) [address] [place] [address] 77549 Sodium [Moles/Vol] 139 mmol/L Normal 134-146 [facility] [facility] Comment on above: Performed By: #### C BCA, CMP #### [facility] ([id number]) [address] [place] [address] 00589 Urea nitrogen [Mass/Vol] 15 mg/dL Normal 5-23 [facility] Comment on above: Performed By: #### C BCA, CMP #### [facility] ([id number]) [address] [place] [address] [id number] Lacho 06-25-2024 L Specimen: [id number] Received: 06/27/24 Status: WILBER Anders Num: [id number] Spec Type: Surgical Subm Dr: Radha Tomas MD Tissues: A Placenta - 3rd Trimester (Greater than 28 weeks) (PLACENTA) Procedures: HE/3, Gross/Micro L5 Age/ Patient Sex Location Account Attending Physician Sabrina Velasquez 34/F LABELL [id number] Radha Tomas MD SPEC NUM: [id number] RECD: 06/27/24 STATUS: WILBER ANDERS NUM: [id number] MELISSA: 06/25/[address]: Radha Tomas MD ENTERED: 06/27/24 [facility] DR: Digna Hinojosa SPEC TYPE: Surgical DEPT: SHREYA GUIDO ORDERED: HE/, Gross/Micro L5 ORDERED: HE, Gross/Micro L5 Pathological Diagnosis Placenta, With: Umbilical [...] cord, has a trimmed weight -------- Specimen: [id number] Received: 06/27/24 Status: WILBER Chago Num: [id number] Spec Type: Surgical Subm Dr: Radha Tomas MD Tissues: A Placenta - 3rd Trimester (Greater than 28 weeks) (PLACENTA) Procedures: , Gross/Micro L5 -------- Patient: Sabrina Velasquez [id number] (Continued) -------- Specimen: [id number] Received: 06/27/24 (Continued) Gross Description (Continued) Signed (signature on file) Flavia Nicholson MD 06/30/241711 -------- Specimen: [id number] Received: 06/27/24 Status: WILBER Anders Num: [id number] Spec Type: Surgical Subm Dr: Radha Tomas MD Tissues: A Placenta - 3rd Trimester (Greater than 28 weeks) (PLACENTA) Procedures: HE/3, Gross/Micro L5 -------- Patient: Sabrina Velasquez [id number] (Continued) -------- Specimen: [id number] Received: 06/27/24 (Continued) Gross Description (Continued) of 322 grams. Summary of sections: A1: umbilical cord at end and membrane roll including possible site of rupture A2: umbilical cord at placental end and parenchyma adjacent to cord insertion site A3: random mid-zonal section CPT Codes 14089 -------- -------- Specimen: [id number] Received: 06/27/24 Status: WILBER Anders Num: [id number] Spec Type: Surgical Subm Dr: Radha Tomas MD Tissues: A Placenta - 3rd Trimester (Greater than 28 weeks) (PLACENTA) Procedures: HE/3, Gross/Micro L5 -------- Patient: Sabrina Velasquez [id number] (Continued) -------- Signed (signature on file) Flavia Nicholson MD 06/30/24 1712 Normal [facility] VERIFICATIONon 020 ABO and Rh group Nom (Bld) A Negative [facility] ABO and Rh group Nom (Bld) ABO/Rh Verification [facility] BMPon 07-14-2020 Anion gap [Moles/Vol] 6 mmol/L Low 10 - 20 mmol/L [facility] Calcium [Mass/Vol] 9.0 mg/dL 8.4 - 10. 2 mg/dL [facility] Chloride [Moles/Vol] 113 mmol/L High 98 - 108 mmol/L [facility] Creatinine [Mass/Vol] 0.64 mg/dL 0.40 - 1.10 [facility] GFR/1.73 sq M predicted among non-blacks MDRD (S/P/Bld) [Vol rate/Area] The eGFR should be used for monitoring renal function only and not for medication dosing. [facility] GFR/1.73 sq M.predicted CKD-EPI (S/P/Bld) [Vol rate/Area] 122 >=60 mL/min/1.73 m2 [facility] Glucose [Mass/Vol] 71 mg/dL 65 - 99 mg/dL [facility] HCO3 [Moles/Vol] 28 mmol/L 21 - 32 mmol/L [facility] Potassium [Moles/Vol] 3.9 mmol/L 3.5 - 5.1 mmol/L [facility] Sodium [Moles/Vol] 143 mmol/L 135 - 145 mmol/L [facility] Urea nitrogen [Mass/Vol] 8 mg/dL 8 - 25 mg/dL [facility] Urea nitrogen/Creatinine [Mass ratio] 12.5 mg/mg [facility] CBC WITH AUTO DIFFERENTIALon 07-14-2020 Basophils (Bld) [#/Vol] 0.03 10*3/uL [facility] Basophils/100 WBC (Bld) 0.4 % [facility] Eosinophils (Bld) [#/Vol] 0.10 10*3/uL [facility] Eosinophils/100 WBC (Bld) 1.5 % [facility] Erythrocyte distribution width (RBC) [Entitic vol] 12.3 % 11.6 - 14.8 % [facility] Hematocrit (Bld) [Volume fraction] 39.2 % 36 - 46 % [facility] Hemoglobin (Bld) [Mass/Vol] 13.6 g/dL 12 - 16 g/dL [facility] Immature granulocytes (Bld) [#/Vol] 0.02 10*3/uL [facility] Immature granulocytes/100 WBC (Bld) 0.30 % [facility] Comment on above: The IG parameter is the percentage of metamyelocytes, myelocytes and promyelocytes. An immature granulocyte count (IG) of 1% or more suggests the possibility of infection, an IG count of 3% is very likely related to an infection. Lymphocytes (Bld) [#/Vol] 1.95 10*3/uL [facility] Lymphocytes/100 WBC (Bld) 29.2 % [facility] MCH (RBC) [Entitic mass] 30.4 pg 26 - 34 pg [facility] MCHC (RBC) [Mass/Vol] 34.7 g/dL 31 - 37 g/dL [facility] MCV (RBC) [Entitic vol] 87.7 fL 80 - 100 fL [facility] Monocytes (Bld) [#/Vol] 0.48 10*3/uL [facility] Monocytes/100 WBC (Bld) 7.2 % [facility] Neutrophils (Bld) [#/Vol] 4.09 10*3/uL [facility] Neutrophils/100 WBC (Bld) 61.4 % [facility] Nucleated RBC (Bld) [#/Vol] 0.00 10*3/uL [facility] Nucleated RBC/100 WBC (Bld) [Ratio] 0.0 % [facility] Platelet mean volume (Bld) [Entitic vol] 11.8 fL 9.4 - 12.4 fL [facility] Platelets (Bld) [#/Vol] 151 10*3/uL [facility] RBC (Bld) [#/Vol] 4.47 10*6/uL [facility] ealth WBC (Bld) [#/Vol] 6.67 10*3/uL [facility] Otheron 07-14-2020 Extra Tube Hold for add-ons. [facility] Comment on above: Auto resulted. Interpretation and review of laboratory results Abnormal [facility] Type and Screenon 07-14-2020 ABO and Rh group Nom (Bld) A Negative [facility] Blood group antibody screen Ql Negative [facility] Specimen Expires 07/17/2020 23:59 EST [facility] URINALYSISon 07-14-2020 Bacteria Auto Ql (U) None Seen None Seen /hpf [facility] Bilirubin Ql (U) Negative Negative [facility] th Clarity Refractometry automated (U) Clear Clear [facility] Color (U) Yellow Colorless, Yellow [facility] Epithelial cells.squamous Auto (Urine sed) [#/Area] 5 High [facility] Glucose Auto test strip (U) [Mass/Vol] Negative Negative mg/dL [facility] Hemoglobin Auto test strip Ql (U) Moderate Abnormal Negative [facility] Interpretation and review of laboratory results Abnormal [facility] Ketones (U) [Mass/Vol] Negative Negative mg/dL [facility] Leukocyte esterase Auto test strip Ql (U) Trace Abnormal Negative [facility] Mucus Auto (Urine sed) [#/Area] Rare None Seen, Rare /lpf [facility] Nitrite Auto test strip Ql (U) Negative Negative [facility] pH (U) 7.0 [pH] [facility] Protein (U) [Mass/Vol] Negative Negative mg/dL [facility] RBC Auto (Urine sed) [#/Area] 2 [facility] Specific gravity (U) [Rel density] 1.011 [facility] Urobilinogen (U) [Mass/Vol] <2.0 <2.0 mg/dL [facility] WBC Auto (Urine sed) [#/Area] 2 [facility] Microscopic examination is performed on all urinalysis samples and only positive findings are reported. The test for blood on the chemical analytic portion of urinalysis may also be positive due to hemoglobinuria and myoglobinuria and if red blood cells are present they are quantified by microscopic examination. [facility] OB 1ST TRIMESTER WITH TRA NSVAGINAL [...] of is believed most likely. [facility] Workstation ID: [id number] Dictated by: SHAY FERNADNEZ on [facility] Jul 14, 2020 12:00:51 PM EDT Transcribed by: PREETI VILLALTA on [facility] Jul 14, 2020 12:07:08 PM EDT Finalized by: SHAY FERNANDEZ on [facility] Jul 14, 2020 12:57:25 PM EDT Normal [facility] Comment on above: Order Comment: Injur [...] limits. No free peritoneal fluid is seen. [facility] 1. Normal study. 2. With a positive beta hCG, this is a of unknown location. Clinical correlation including serial beta hCG levels is needed differentiate the possibilities which include extremely early , spontaneous of recent , or ectopic gestation which is not directly visualized. With a history of bleeding, spontaneous of is believed most likely. [employer] Workstation ID: [id number] [facility] Interface, Rad In [employer] - 07/14/2020 1:00 PM EDT EXAMINATION: ULTRASOUND [...] of is believed most likely. [facility] Workstation ID: [id number] [facility] VAGINITIS DNA PROBESon 07-14 Olga sp DNA Probe+sig amp Ql (Vag fld) Negative Negative [facility] G. vaginalis DNA Probe+sig amp Ql (Vag fld) Negative Negative [facility] Interpretation and review of laboratory results Normal [facility] T. vaginalis DNA Probe+sig amp Ql (Vag fld) Negative Negative [facility] hCG, Blood, QUANTitativeon 0 07-14-2020 Beta HCG ( test) Ql (U) Males and non females: <5 mIU/mL Females during : 3-4 weeks 9-130 mIU/mL 4-5 weeks 75-2600 mIU/mL 5-6 weeks 850-20,800 mIU/mL 6-7 weeks 4000-100,200 mIU/mL 7-12 weeks 11,500-289,000 mIU/mL 12-16 weeks 18,300-137,000 mIU/mL 16-29 weeks 1,400-53,000 mIU/mL 29-41 weeks 940-60,000 mIU/mL [facility] HCG Qn 438 m[IU]/mL High [facility] Basic Metabolic Panelon 04-0 Anion gap [Moles/Vol] 7.0 mmol/L Normal 6.0-18.0 [facility] Comment on above: Performed By: #### 2 4321-2, 06534-5, 74711-9l2, 1988-03 ####[facility] [address] [place], [place] Calcium [Mass/Vol] 8.6 mg/dL Low 8.9-10.3 [facility] Comment on above: Performed By: #### 2 4321-2, 47926-1, 03861-2u1, 1988-03 ####[facility] [address] [place], [place] Chloride [Moles/Vol] 107 mmol/L Normal 98-107 [facility] Comment on above: Performed By: #### 2 4321-2, 63206-0, 78295-1i3, 1988-03 ####[facility] [address] [place], [place] CO2 [Moles/Vol] 24 mmol/L Normal 22-32 [facility] Comment on above: Performed By: #### 2 4321-2, 15539-2, 62969-0f0, 1988-03 ####[facility] [address], [place] Creatinine [Mass/Vol] 0.67 mg/dL Normal 0.60-1.30 [facility] Comment on above: Performed By: #### 2 4321-2, 40528-1, 68284-0o7, 1988-03 ####[facility] [address], [place] Glucose [Mass/Vol] 105 mg/dL High 70-99 [facility] Comment on above: Result Comment: U pdated ADA Reference Range A normal fasting glucose concentration is less than 100 mg/dL. An impaired fasting glucose concentration is 100-125 mg/dL. A provisional diagnosis of diabetes mellitus can be made when a fasting glucose concentration is greater than 125 mg/dL. Performed By: #### 2 4321-2, 99909-9, 54814-7h0, 1988-03 ####[facility] [address], [place] Potassium [Moles/Vol] 4.1 mmol/L Normal 3.6-5.1 [facility] Comment on above: Performed By: #### 2 4321-2, 52388-0, 74980-7e7, 1988-03 ####[facility] [address], [place] Sodium [Moles/Vol] 138 mmol/L Normal 136-145 [facility] Comment on above: Performed By: #### 2 4321-2, 75572-7, 42256-8m0, 1988-03 ####[facility] [address], [place] Urea nitrogen (BldV) [Mass/Vol] 8 mg/dL Normal 8-20 [facility] Comment on above: Performed By: #### 2 4321-2, 83365-7, 06719-4q9, 1988-03 ####[facility] [address], [place] C-Reactive Proteinon 019 CRP [Mass/Vol] 3.2 mg/dL High <1.0 [facility] Comment on above: Performed By: #### 2 4321-2, 73852-9, 61924-0a8, 1988-5 ####[facility] [address], [place] CBCon 03-01-2019 Erythrocyte distribution width (RBC) [Entitic vol] 14.3 % Normal 11.0-14.8 [facility] Comment on above: Performed By: #### 2 4317-0 ####[facility] [address] [place], [place] Hematocrit (Bld) [Volume fraction] 37.5 % Normal 35.0-45.0 [facility] Comment on above: Performed By: #### 2 4317-0 ####[place] [address] [place], [place] Hemoglobin (Bld) [Mass/Vol] 12.5 g/dL Normal 12.0-16.0 [facility] Comment on above: Performed By: #### 2 4317-0 ####[place] [address], [place] MCH (RBC) [Entitic mass] 28.1 Picograms Normal 27.0-34.0 [facility] Comment on above: Performed By: #### 2 4317-0 ####[place] [address], [place] MCHC (RBC) [Mass/Vol] 33.3 g/dL Normal 32.0-36.0 [facility] Comment on above: Performed By: #### 2 4317-0 ####[facility] [address], [place] MCV (RBC) [Entitic vol] 84.6 fL Normal 80.0-97.0 [facility] Comment on above: Performed By: #### 2 4317-0 ####[facility] [address], [place] Platelet mean volume (Bld) [Entitic vol] 10.5 fL Normal 6.2-12.1 [facility] Comment on above: Performed By: #### 2 4317-0 ####[facility] [address], [place] Platelets (Bld) [#/Vol] 231 thou/mcL Normal 142-424 [facility] Comment on above: Performed By: #### 2 4317-0 ####[facility] [address], [place] RBC (Bld) [#/Vol] 4.43 million/mcL Normal 3.80-5.10 [facility] Comment on above: Performed By: #### 2 4317-0 ####[facility] [address], [place] WBC (Bld) [#/Vol] 12.7 thou/mcL High 4.6-10.2 [facility] Comment on above: Performed By: #### 2 4317-0 ####[facility] [address], [place] GFRaaon 03-01-2019 GFR/1.73 sq M predicted among blacks MDRD (S/P/Bld) [Vol rate/Area] mL/min/{1.73_m2} Normal [facility] Comment on above: Result Comment: The MDRD equation has not been validated for those over 70 years, women, patients with serious co-morbid conditions, or with extremes of body size, muscle mass of nutritional status. Performed By: #### 2 4321-2, 18122-5, 31384-0i6, 1988-03 ####[facility] [address], [place] GFRbbon 03-01-2019 GFR/1.73 sq M predicted among non-blacks MDRD (S/P/Bld) [Vol rate/Area] mL/min/{1.73_m2} Normal [facility] Comment on above: Performed By: #### 2 4321-2, 80606-1, 46610-7h8, 1988-03 ####[facility] [address], [place] Glucose POCT (Uploaded)on Glucose [Mass/Vol] 87 mg/dL Normal 70-99 [facility] Comment on above: Result Comment: Nadia tment ranges and critical values established by Patient Care Services. All follow-up actions were taken by Patient Care Services. Performed By: #### 2 430-8 ####[facility] Glucose [Mass/Vol] 93 mg/dL Normal 70-99 [facility] Comment on above: Result Comment: Nadia tment ranges and critical values established by Patient Care Services. All follow-up actions were taken by Patient Care Services. Performed By: #### 2 430-8 ####[facility] Glucose [Mass/Vol] 95 mg/dL Normal 70-99 [facility] Comment on above: Result Comment: Nadia tment ranges and critical values established by Patient Care Services. All follow-up actions were taken by Patient Care Services. Performed By: #### 2 430-8 ####[facility] Glucose [Mass/Vol] 123 mg/dL High 70-99 [facility] Comment on above: Result Comment: Nadia tment ranges and critical values established by Patient Care Services. All follow-up actions were taken by [facility]. Performed By: #### 2 430-8 ####[facility] PACU I Nursingon 03-01-2019 PACU I Nursing [facility] PACU I Jerri g Record Summary Primary Physician: Marcellus Driscoll MD Finalized Date/Time: 03/01/19 07:03:14 Pt. Name: SABRINA VELASQUEZ/Sex: 1990 Female Med Rec #: [id number] Physician: Marcellus Driscoll MD Financial #: [id number] Pt. Type: I Room/Bed: [address] [place] [address] Admit/Disch: 02/28/19 08:18:00 - Institution: [facility] [...] Rendon RN 03/01/19 07:03 Normal [facility] Patient Summaryon 03-01-2019 Patient Summary PATIENT DISCHARGE INSTRUCTIONS If you are having an emergency and are not able to reach your physician, CALL 911 or go to the nearest emergency room and take this document with you. [facility] 03/01/19 18:42 [address] [place]. [address] PATIENT INFORMATION Name: SABRINA VELASQUEZ Address: [address] [place] [id number] Age: 29 Years Phone: [phone] : 1990 12:00 MRN: [facility][id number] Sex: Female Race: White Ethnicity: Declined Admitted From: Clinic or [facility] Medical Service: Surgery Nurse Unit/Bed: (CO) 7TWH 0I60-96 Admit Date: 02/28/2019 08:18 PCP: Omid Killian MD PHYSICIANS INVOLVED WITH CARE ------ Attending Physicians: Marcellus Driscoll MD - Surgery Admitting Physician: Marcellus Driscoll MD - Surgery Primary Care Physician:Omid Killian MD, - Consults: None found FOLLOW-UP APPOINTMENTS: Provider: Specialty: Address: Date: Marcellus Driscoll MD Surgery [address] [place] [address] (1) 03/08/19 01:45 pm Comment: Please follow-up at your pre-scheduled appointment. Provider: Specialty: Address: Date: Omid Killian MD [address] [facility] [address] (1) Follow-up as needed Provider: Specialty: Address: Date: Post-Op Nutrition Class [address] [facility] [address] 03/22/19 Comment: Please call [phone] for more information or to re-schedule. ALLERGIES: [...] doses are changed, or new medications (including iczn-rnn-qfyhjck products) are added. Ask your doctor if [...] diet. Follow recommendations from your surgeon and piano tuner regarding you diet. Refer to nutrition information [...] doctor before taking any supplements, herbal or ykfj-cgo-doqhlzk medications. Call your physician if any questions [...] suicide hotline, anytime day or night, at 9-107-535-YKEG. Important information about accessing your health information through the [facility] patient portal If you initiated the self-registration process for [employer] during your stay, please check your personal email for an invitation to enroll in [employer] and complete the steps outlined in the email. If you would prefer to enroll while in the hospital, ask a member of your care team. We would be happy to assist you. If you have already enrolled in [employer], go to [email or web address] to login and access your health information. Thank you for choosing [facility]. PATIENT EDUCATION Gastric Bypass Surgery, Care After [...] of caffeine can cause dehydration. ?? A piano tuner may also give you specific instructions. ?? [...] 06/30/2005 Document Revised: 12/07/2015 Document Reviewed: 04/08/2011 [employer] Patient Education ??2016 [employer]. Gastric Bypass Discharge Instructions 1. Follow-up Care [...] dietitian for post-operative class at 2 weeks [phone] ? Call Bariatric Nurse Navigator [phone] with any further questions or concerns Call 101 if you have difficulty breathing or chest [...] is for informational purposes only. [facility] does not promote, condone or endorse all the values expressed herein. The values or opinions they express with regard to the use of artificial contraception are not consistent with the teachings of the Buddhism Yazidi and the Ethical and Buddhist Directives for [facility] Care Services. If any of these instructions are different from what your doctor tells you, follow your doctor's orders. If you smoke, you should quit. For more information, talk with your doctor or call 3-767-MIWR-NOW ( ). PATIENT DISCHARGE INSTRUCTION Signature Page for: SABRINA VELASQUEZ Date/Time: 03/01/2019 18:42:02 A Clinician has explained the information on my discharge instructions and has provided me with a copy. My questions have been answered to my satisfaction. Patient Signature Date/Time Responsible Party Date/Time Relationship to Patient Clinician Signature Date/Time Normal [facility] Glucose POCT (Uploaded)on Glucose [Mass/Vol] 140 mg/dL High 70-99 [facility] Comment on above: Result Comment: Nadia tment ranges and critical values established by Patient Care Services. All follow-up actions were taken by Patient Care Services. Performed By: #### 2 430-8 ####[facility] Glucose [Mass/Vol] 127 mg/dL High 70-99 [facility] Comment on above: Result Comment: Nadia tment ranges and critical values established by Patient Care Services. All follow-up actions were taken by Patient Care Services. Performed By: #### 2 430-8 ####[facility] Glucose [Mass/Vol] 141 mg/dL High 70-99 [facility] Comment on above: Result Comment: Nadia tment ranges and critical values established by Patient Care Services. All follow-up actions were taken by Patient Care Services. Performed By: #### 2 430-8 ####[facility] Glucose [Mass/Vol] 164 mg/dL High 70-99 [facility] Comment on above: Result Comment: Nadia tment ranges and critical values established by Patient Care Services. All follow-up actions were taken by Patient Care Services. Performed By: #### 2 430-8 ####[facility] OR Nursingon 02-28-2019 OR Nursing [facility] OR Nursing Record Summary Primary Physician: Marcellus Driscoll MD Finalized Date/Time: 02/28/19 14:10:30 Pt. Name: VELASQUEZ SABRINA Garcia/Sex: 1990 Female Med Rec #: [id number] Physician: Marcellus Driscoll MD Financial #: [id number] Pt. Type: I Room/Bed: / Admit/Disch: 02/28/19 [...] Case Attendee Marcellus Driscoll MD, DO , Jacob Kenny Burton CRNA Role Performed Primary Surgeon Anesthesiologist Nurse Medical Massage Therapist Time In 02/28/19 11:17:00 02/28/19 11:17:00 02/28/19 [...] Guaman RN , Litzy Garcia Role Performed senior quantity surveyor RN First Scrub Time In 02/28/19 11:17:00 02/28/19 11:17:00 02/28/19 11:17:00 Time Out 02/28/19 14:05:00 02/28/19 14:05:00 02/28/19 14:05:00 Procedure Bypass Gastric Bypass Gastric Bypass Gastric Robot(N/A) Robot(N/A) Robot(N/A) Attendee Comment LUNCH [id number] LUNCH 8580-7039 lunch [id number] Relief Reason Last Modified By: Abner RN , Disha Levine RN , Disha Levine RN , Disha Aiken 02/28/19 14:09:25 02/28/19 14:09:25 02/28/19 14:09:25 Entry 7 Entry 8 Entry 9 Case Attendee Adi MARTIN , Swetha Rao Case, Attendee Other Role Performed senior quantity surveyor First Scrub Digital Associate Media Director Time In 02/28/19 11:48:00 02/28/19 11:57:00 02/28/19 11:17:00 Time Out 02/28/19 12:40:00 02/28/19 12:53:00 02/28/19 14:05:00 Procedure Bypass Gastric Bypass Gastric Bypass Gastric Robot(N/A) Robot(N/A) Robot(N/A) Attendee Comment MIRANDA, [place] - INTUITIVE Relief Reason Last Modified By: Abner RN , Disha Levine RN , Disha Levine RN , Disha Aiken 02/28/19 14:09:25 02/28/19 14:09:25 02/28/19 14:09:25 [facility] OR General Case Hydroelectric Production Manager 1 OR CO W 11 ASA Class [...] Arrival? No 16FR TEMP SEN W/URINE METER [id number] Inserted By Rowena MARTIN , Oly ESTEVEZ'joel at End of Case? No Last Modified [...] Strap Thighs Location Positioned By Kenny Dorado CRNA T, Procedure Bypass Gastric Disha Levine RN, Robot(N/A) [...] OR Temperature Regulation Entry 1 Unit ID [id number] Site UPPER BODY Last Modified By: Gissell [...] Levine RN 02/28/19 14:10 Normal [facility] PreOp Nursingon 02-28-2019 PreOp Nursing [facility] PreOp Nursing Record Summary Primary Physician: Marcellus Driscoll MD Finalized Date/Time: 02/28/19 12:08:12 Pt. Name: SABRINA VELASQUEZ /Sex: 1990 Female Med Rec #: [id number] Physician: Marcellus Driscoll MD Financial #: [id number] Pt. Type: I Room/Bed: / Admit/Disch: 02/28/19 08:18:00 - Institution: [facility] OR PreOp Case Times Entry 1 PreOp Case Times In Room Time 02/28/19 08:23:00 Out Room Time 02/28/19 11:15:00 Last Modified By: Gissell Joshi RN 02/28/19 12:08:08 [facility] OR PreOp Case Attendees Entry 1 Case Attendee Grant MARTIN , Laurie Cohn RN Last Modified By: Laurie Burns RN 02/28/19 08:39:58 Finalized By: Gissell Joshi RN Document Signatures Signed By: Gissell Joshi RN 02/28/19 12:08 Normal [facility] CBC with Differentialon 01-29 Basophils (Bld) [#/Vol] 0.00 thou/mcL Normal 0.00-0.20 [facility] Comment on above: Performed By: #### 5 7021-8 #### [address] Basophils/100 WBC (Bld) 0.4 % Normal 0.0-2.0 [facility] Comment on above: Performed By: #### 5 7021-8 #### [address] Eosinophils (Bld) [#/Vol] 0.10 thou/mcL Normal 0.00-0.70 [facility] Comment on above: Performed By: #### 5 7021-8 #### [address] Eosinophils/100 WBC (Bld) 1.5 % Normal 0.0-7.0 [facility] Comment on above: Performed By: #### 5 7021-8 #### [address] Erythrocyte distribution width (RBC) [Entitic vol] 14.8 % Normal 11.0-14.8 [facility] Comment on above: Performed By: #### 5 7021-8 #### [address] Hematocrit (Bld) [Volume fraction] 41.4 % Normal 35.0-45.0 [facility] Comment on above: Performed By: #### 7021-8 #### [address] Hemoglobin (Bld) [Mass/Vol] 13.7 g/dL Normal 12.0-16.0 [facility] Comment on above: Performed By: #### 7021-8 #### [address] Lymphocytes (Bld) [#/Vol] 1.80 thou/mcL Normal 1.00-4.80 [facility] Comment on above: Performed By: #### 70-8 #### [address] Lymphocytes/100 WBC (Bld) 21.5 % Low 22.0-44.0 [facility] Comment on above: Performed By: #### 7021-8 #### [address] MCH (RBC) [Entitic mass] 28.6 Picograms Normal 27.0-34.0 [facility] Comment on above: Performed By: #### 7021-8 #### [address] MCHC (RBC) [Mass/Vol] 33.2 g/dL Normal 32.0-36.0 [facility] Comment on above: Performed By: #### 7021-8 #### [address] MCV (RBC) [Entitic vol] 86.0 fL Normal 80.0-97.0 [facility] Comment on above: Performed By: #### 7021-8 #### [address] Monocytes (Bld) [#/Vol] 0.60 thou/mcL Normal 0.00-0.90 [facility] Comment on above: Performed By: #### 5 7021-8 #### [place] [address] [place], [place] Monocytes/100 WBC (Bld) 7.5 % Normal 0.0-12.0 [facility] Comment on above: Performed By: #### 7021-8 #### [address] [place], [place] Neutrophils (Bld) [#/Vol] 5.90 thou/mcL Normal 1.80-7.70 [facility] Comment on above: Performed By: #### 7021-8 #### [place] [address] Neutrophils/100 WBC (Bld) 69.1 % Normal 40.0-70.0 [facility] Comment on above: Performed By: #### 7021-8 #### [address] [address] Platelet mean volume (Bld) [Entitic vol] 11.3 fL Normal 6.2-12.1 [facility] Comment on above: Performed By: #### 7021-8 #### [address] Platelets (Bld) [#/Vol] 194 thou/mcL Normal 142-424 [facility] Comment on above: Performed By: #### 7021-8 #### [address] RBC (Bld) [#/Vol] 4.81 million/mcL Normal 3.80-5.10 [facility] Comment on above: Performed By: #### 7021-8 #### [address] [place], [place] WBC (Bld) [#/Vol] 8.5 thou/mcL Normal 4.6-10.2 [facility] Comment on above: Performed By: #### 7021-8 #### [address] Comprehensive Metabolic Pane lacho 2019 Albumin [Mass/Vol] 3.3 g/dL Low 3.5-4.8 [facility] Comment on above: Performed By: #### 2 4323-8, 79688-7z8, 57069-4 ####[facility] [address], [place] ALP [Catalytic activity/Vol] 72 Units/L Normal 32-91 [facility] Comment on above: Performed By: #### 2 4323-8, 10823-4g0, 84675-8 ####[facility] [address], [place] ALT [Catalytic activity/Vol] 18 Units/L Normal 14-63 [facility] Comment on above: Performed By: #### 2 4323-8, 54513-9k6, 60295-8 ####[facility] [address], [place] Anion gap [Moles/Vol] 10.0 mmol/L Normal 6.0-18.0 [facility] Comment on above: Performed By: #### 2 4323-8, 94501-0n2, 54470-3 ####[facility] [address], [place] AST [Catalytic activity/Vol] 17 Units/L Normal 15-41 [facility] Comment on above: Performed By: #### 2 4323-8, 89121-2p3, 96644-9 ####[facility] [address], [place] Bilirubin [Mass/Vol] 0.7 mg/dL Normal 0.3-1.2 [facility] Comment on above: Performed By: #### 2 4323-8, 45960-3p8, 61878-6 ####[facility] [address], [place] Calcium [Mass/Vol] 8.5 mg/dL Low 8.9-10.3 [facility] Comment on above: Performed By: #### 2 4323-8, 61547-8x2, 99799-8 ####[facility] [address], [place] Chloride [Moles/Vol] 104 mmol/L Normal 98-107 [facility] Comment on above: Performed By: #### 2 4323-8, 24422-2z7, 18873-6 ####[facility] [address], [place] CO2 [Moles/Vol] 22 mmol/L Normal 22-32 [facility] Comment on above: Performed By: #### 2 4323-8, 46226-4p3, 97764-1 ####[facility] [address], [place] Creatinine [Mass/Vol] 0.79 mg/dL Normal 0.60-1.30 [facility] Comment on above: Performed By: #### 2 4323-8, 22512-8x5, 00705-5 ####[facility] [address], [place] Glucose [Mass/Vol] 93 mg/dL Normal 70-99 [facility] Comment on above: Result Comment: U pdated ADA Reference Range A normal fasting glucose concentration is less than 100 mg/dL. An impaired fasting glucose concentration is 100-125 mg/dL. A provisional diagnosis of diabetes mellitus can be made when a fasting glucose concentration is greater than 125 mg/dL. Performed By: #### 2 4323-8, 62983-1d4, 13699-2 ####[facility] [address], [place] Potassium [Moles/Vol] 4.1 mmol/L Normal 3.6-5.1 [facility] Comment on above: Performed By: #### 2 4323-8, 97705-1u2, 20829-9 ####[facility] [address], [place] Protein [Mass/Vol] 6.0 g/dL Low 6.1-7.9 [facility] Comment on above: Performed By: #### 2 4323-8, 47680-3r8, 58053-0 ####[facility] [address], [place] Sodium [Moles/Vol] 136 mmol/L Normal 136-145 [facility] Comment on above: Performed By: #### 2 4323-8, 36366-1j3, 28714-1 ####[facility] [address] [place], [place] Urea nitrogen (BldV) [Mass/Vol] 13 mg/dL Normal 8-20 [facility] Comment on above: Performed By: #### 2 4323-8, 91539-5y5, 16266-7 ####[address] [place], [place] GFRaaon 2019 GFR/1.73 sq M predicted among blacks MDRD (S/P/Bld) [Vol rate/Area] mL/min/{1.73_m2} Normal [facility] Comment on above: Result Comment: The MDRD equation has not been validated for those over 70 years, women, patients with serious co-morbid conditions, or with extremes of body size, muscle mass of nutritional status. Performed By: #### 2 4323-8, 30943-8m4, 65848-0 ####[address] GFRbbon 2019 GFR/1.73 sq M predicted among non-blacks MDRD (S/P/Bld) [Vol rate/Area] mL/min/{1.73_m2} Normal [facility] Comment on above: Performed By: #### 2 4323-8, 20212-5f2, 89698-6 ####[address] Glycohemoglobin (HGB A1C) Emaunel guardado 2019 HbA1c (Bld) [Mass fraction] 5.0 % tl hgb Normal <5.6 [facility] Comment on above: Result Comment: U pdated ADA Reference Range HbA1c values of 5.7-6.4 percent indicate an increased risk for developing diabetes mellitus. HbA1c values greater than or equal to 6.5 percent are diagnostic of diabetes mellitus. For diagnosis of diabetes in individuals without unequivocal hyperglycemia, results should be confirmed by repeat testing. Performed By: #### 4 549-2 ####[facility], [address] [place] [address]. Partial Thromboplastin Time (aPTT)on 2019 aPTT Coag (PPP) [Time] 29.6 Sec Normal 23.6-35.3 [facility] Comment on above: Performed By: #### 3 173-2, 5902-2 ####[facility], [address] [place] [address]. Prothrombin Timeon 9 INR Coag (Bld) [Relative time] 1.00 {INR} Normal [facility] Comment on above: Result Comment: The recommended therapeutic INR range for most cardiac indications is 2.0-3.0. For high intensity therapy(ie.mechanical heart valves), the recommended range is 2.5-3.5. Performed By: #### 3 173-2, 5902-2 ####[facility], [address] [place] [address]. PT Coag (PPP) [Time] 11.5 Sec Normal 9.3-12.4 [facility] Comment on above: Performed By: #### 3 173-2, 5902-2 ####[facility], [address] [place] [address]. XR Chest 2 Viewson 9 XR Chest 2 views Two-view chest exam Indication: pre-op. Cough for the past week. COMPARISON: E 66.01 FINDINGS: The lungs are clear and the costophrenic angles are sharp. The cardiomediastinal silhouette and bones are normal. IMPRESSION: Normal chest. [place] thanks you for the opportunity to care for your patient. Workstation ID: [id number] FINAL REPORT Dictated By: Jean Hull MD 2019 08:47 Assigned Physician: Jean Hull MD Reviewed and Electronically Signed By: Jean Hull MD 2019 08:48 Transcribed by: GREGORY 2019 08:47 Technologist: SHAKA Carranza [facility] OR Nursingon 09-17-2018 OR Nursing [facility] OR Nursing Record Summary Primary Physician: Tristan Tate MD Finalized Date/Time: 09/17/18 07:39:53 Pt. Name: SABRINA VELASQUEZ /Sex: 1990 Female Med Rec #: [id number] Physician: Financial #: [id number] Pt. Type: I Room/Bed: / Admit/Disch: 09/16/18 [...] PER ANESTHESIA PAPER RECORD KEILA RN CO W Endo Case Attendees Entry 1 Entry 2 Entry 3 Case Attendee Keli URBINA , Tristan Delvalle DIRECTOR OF MANAGED SERVICES , Charbel Wolf DO Role Performed Primary Surgeon Nurse Medical Massage Therapist Anesthesiologist Time In 09/16/18 14:20:00 09/16/18 14:20:00 09/16/18 14:20:00 Time Out 09/16/18 14:30:00 09/16/18 14:30:00 09/16/18 14:30:00 Procedure Egd_(N/A) Egd_(N/A) Egd_(N/A) Attendee Comment Relief Reason Last Modified By: Breanna RN , Afia Carlos RN , Afia Reyes RN 09/16/18 14:31:12 09/16/18 14:31:12 09/16/18 14:31:12 Entry 4 Entry 5 Case Attendee Breanna RN , Rosalio Cruz RN Role Performed senior quantity surveyor Financial Retirement Plan Specialist Time In 09/16/18 14:20:00 09/16/18 14:20:00 Time Out 09/16/18 14:30:00 09/16/18 14:30:00 Procedure Egd_(N/A) Egd_(N/A) Attendee Comment Relief Reason Last Modified By: Afia Carlos RN, RN, Courtney 09/16/18 14:31:12 09/16/18 14:31:12 CO [facility] General Case 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 PAPER RECORD KEILA MARTIN CO DAVIDW [facility] Surgical Procedures Entry 1 Procedure Egd_ Primary Procedure Yes Modifiers N/A Procedure Wound None Class Primary Surgeon Keli URBINA , Tristan Surgical Service General Surgery Anesthesia Type MAC Procedure Performed (EGD) ESOPHAGOGASTRODUODENO SCO PY Start 09/16/18 14:26:00 Stop 09/16/18 14:28:00 Last Modified By: Sherrie Rendon RN 09/17/18 07:39:25 General Comments: ANESTHESIA TYPE CHANGED PER PAPER ANESTHESIA RECORD KEILA MARTIN [facility] Fire Risk Assessment Entry 1 [...] Afia Carlos RN 09/16/18 14:22:30 [facility] Patient Debriefing Entry 1 Verify name of [...] 09/17/18 07:38 Sherrie Rendon RN 09/17/18 07:39 Sherire Rendon RN 09/17/18 07:39 Normal [facility] Post PACU Nursingon 09-17-20 18 Post PACU Nursing CO [facility]o PACU II Nursing Record Summary Primary Physician: Tristan Tate MD Finalized Date/Time: 09/17/18 07:40:27 Pt. Name: SABRINA VELASQUEZ/Sex: 1990 Female Med Rec #: [id number] Physician: Financial #: [id number] Pt. Type: I Room/Bed: / Admit/Disch: 09/16/18 13:46:00 - 09/16/18 15:20:00 Institution: [facility]o PACU II Case Times Entry 1 In PACU II 09/16/18 14:34:00 Ready for PACU II 09/16/18 14:49:00 Discharge Discharge from PACU 09/16/18 15:20:00 II Last Modified By: Rocio Turcios RN 09/16/18 15:26:17 CO [facility] PACU II Case Attendees Entry 1 Case Attendee Rocio Turcios RN Role Performed RN Last Modified By: Rocio Turcios RN 09/16/18 15:04:00 Finalized By: Sherrie Rendon RN Document Signatures Signed By: Sherrie Rendon RN 09/17/18 07:35 Sherrie Rendon RN 09/17/18 07:40 Normal [facility] PreOp Nursingon 09-17-2018 PreOp Nursing [facility] PreOp Nursing Record Summary Primary Physician: Tristan Tate MD Finalized Date/Time: 09/17/18 07:36:42 Pt. Name: SABRINA VELASQUEZ/Sex: 1990 Female Med Rec #: [id number] Physician: Financial #: [id number] Pt. Type: I Room/Bed: / Admit/Disch: 09/16/18 13:46:00 - 09/16/18 15:20:00 Institution: [facility] PreOp Case Times Entry 1 PreOp Case Times In Room Time 09/16/18 14:00:00 Out Room Time 09/17/18 14:19:00 Last Modified By: Sherrie Rendon RN 09/17/18 07:36:31 General Comments: OUT ROOM TIME ENTERED PER PATIENT IN ROOM TIME (OR NSG RECORD) [facility] PreOp Case Attendees Entry 1 Case Attendee Andrew RN , Altagracia Cohn RN Last Modified By: Altagracia Morales RN 09/16/18 14:00:58 Finalized By: Sherrie Rendon RN Document Signatures Signed By: Sherrie Rendon RN 09/17/18 07:36 Sherrie Rendon RN 09/17/18 07:36 Normal [facility] Patient Summaryon 09-16-2018 Patient Summary PATIENT DISCHARGE INSTRUCTIONS If you are having an emergency and are not able to reach your physician, CALL 911 or go to the nearest emergency room and take this document with you. [facility] 09/16/18 14:45 [address] [place]. [address] PATIENT INFORMATION Name: SABRINA VELASQUEZ Address: [address] [place] [id number] Age: 28 Years Phone: [phone] : 1990 12:00 MRN: [id number] Sex: Female Race: White Ethnicity: Declined Admitted From: Clinic or [facility] Medical Service: Surgery Nurse Unit/Bed: (CO) ESSENCE N/A Admit Date: 09/16/2018 13:46 PCP: Omid Killian MD PHYSICIANS INVOLVED WITH CARE ------ Attending Physicians: Tristan Tate MD - Surgery Admitting Physician: None found Primary Care Physician:Donaldo URBINA , Omid Almeida, - Consults: None found ALLERGIES: No Known [...] doses are changed, or new medications (including esqr-jdr-ibmamna products) are added. Ask your doctor if [...] suicide hotline, anytime day or night, at 5-427-630-ZYOB. Important information about accessing your health information through the [place] [employer] patient portal If you initiated the self-registration process for [employer] during your stay, please check your personal email for an invitation to enroll in [employer] and complete the steps outlined in the email. If you would prefer to enroll while in the hospital, ask a member of your care team. We would be happy to assist you. If you have already enrolled in [facility], go to [email or web address] to login and access your health information. Thank you for choosing [facility]. PATIENT EDUCATION Esophagogastroduodeno scopy, Care After Refer [...] Reviewed: 11/02/2013 Elsevier Interactive Patient Education ?2016 [employer] VIRUSES OR BACTERIA: WHAT'S GOT YOU [...] Patient Clinician Signature Date/Time Normal [facility] ECG 12 leadon 06-14-2018 Atrial Rate Invalid Interpretation Code [facility] P [place] Invalid Interpretation Code [facility] P-R Interval Invalid Interpretation Code [facility] Q-T Interval Invalid Interpretation Code [facility] Q-T Interval (corrected) Invalid Interpretation Code [facility] QRS Duration Invalid Interpretation Code [facility] QTC Calculation (Bezet) Invalid Interpretation Code [facility] R Chapin Invalid Interpretation Code [facility] T [place]in Invalid Interpretation Code [facility] Ventricular Rate Invalid Interpretation Code [facility] Vital Signs Date Time Vital Sign Value Performing Clinician Abbey ruiz 06-01-2025 09:55-0400 Body mass index (BMI) [Ratio] 41.04 kg/m2 Arvind Mallory DO Work Phone: [facility] 06-01-2025 09:55-0400 Body weight 115.33 kg Arvind Mallory DO Work Phone: [facility] 06-01-2025 09:55-0400 Diastolic blood pressure 74 mm[Hg] Arvind Mallory DO Work Phone: [facility] 06-01-2025 09:55-0400 Systolic blood pressure 110 mm[Hg] Arvind Mallory DO Work Phone: [facility] 05-03-2025 11:18-0400 Body mass index (BMI) [Ratio] 41.87 kg/m2 Arvind Mallory DO Work Phone: [facility] 05-03-2025 11:18-0400 Body weight 117.66 kg Arvind Mallory DO Work Phone: [facility] 05-03-2025 11:18-0400 Diastolic blood pressure 74 mm[Hg] Arvind Mallory DO Work Phone: [facility] 05-03-2025 11:18-0400 Systolic blood pressure 116 mm[Hg] Arvind Mallory DO Work Phone: [facility] 03-30-2025 11:46-0400 Body mass index (BMI) [Ratio] 43.87 kg/m2 Arvind Mallory DO Work Phone: [facility] 03-30-2025 11:46-0400 Body weight 123.29 kg Arvind Mallory DO Work Phone: [facility] 03-30-2025 11:46-0400 Diastolic blood pressure 80 mm[Hg] Arvind Mallory DO Work Phone: [facility] 03-30-2025 11:46-0400 Systolic blood pressure 120 mm[Hg] Arvind Mallory DO Work Phone: [facility] 03-02-2025 12:04-0400 Body mass index (BMI) [Ratio] 44.22 kg/m2 Arvind Mallory DO Work Phone: [facility] 03-02-2025 12:04-0400 Body weight 124.29 kg Arvind Mallory DO Work Phone: [facility] 03-02-2025 12:04-0400 Diastolic blood pressure 76 mm[Hg] Arvind Mallory DO Work Phone: [facility] 03-02-2025 12:04-0400 Systolic blood pressure 124 mm[Hg] Arvind Mallory DO Work Phone: [facility] 08-16-2024 13:22-0400 Body mass index (BMI) [Ratio] 43.16 kg/m2 Arvind Mallory DO Work Phone: [facility] 08-16-2024 13:22-0400 Body weight 121.29 kg Arvind Mallory DO Work Phone: [facility] 08-16-2024 13:22-0400 Diastolic blood pressure 74 mm[Hg] Arvind Mallory DO Work Phone: [facility] 08-16-2024 13:22-0400 Systolic blood pressure 124 mm[Hg] Arvind Mallory DO Work Phone: [facility] 08-09-2024 13:21-0400 Body mass index (BMI) [Ratio] 43.42 kg/m2 Arvind Mallory DO Work Phone: [facility] 08-09-2024 13:21-0400 Body weight 122.02 kg Arvind Mallory DO Work Phone: [facility] 08-09-2024 13:21-0400 Diastolic blood pressure 74 mm[Hg] Arvind Mallory DO Work Phone: [facility] 08-09-2024 13:21-0400 Systolic blood pressure 118 mm[Hg] Arvind Mallory DO Work Phone: [facility] 07-14-2020 13:00-0400 BP Diastolic 78 mm[Hg] [facility] Tristan [facility] 07-14-2020 13:00-0400 BP Systolic 123 mm[Hg] Alicia Hudson [facility] 07-14-2020 13:00-0400 Pulse (Heart Rate) 55 /min Alicia Hudson [facility] 07-14-2020 13:00-0400 Pulse Oximetry 100 % Alicia Hudson [facility] 07-14-2020 10:06-0400 Body Temperature 98.8 [degF] [facility] 07-14-2020 10:04-0400 BMI (Body Mass Index) 43.58 kg/m2 Alicia Hudson [facility] 07-14-2020 10:04-0400 Body weight 122.47 kg Alicia Hudson [facility] 07-14-2020 10:04-0400 Height 167.6 cm Alicia Hudson [facility] 07-14-2020 10:04-0400 Respiratory Rate 16 /min [facility] 06-14-2018 09:16-0400 BMI (Body Mass Index) 63.24 kg/m2 [facility] 06-14-2018 09:16-0400 BP Diastolic 84 mm[Hg] [facility] 06-14-2018 09:16-0400 BP Systolic 128 mm[Hg] [facility] 06-14-2018 09:16-0400 Height 167.6 cm [facility] 06-14-2018 09:16-0400 Pulse (Heart Rate) 64 /min [facility] 06-14-2018 09:16-0400 Pulse Oximetry 98 % [facility] 06-14-2018 09:16-0400 Weight 177.72 kg [facility] Encounters Encounter Date Encounter Type Care Provider Facility Start: 06-01-2025 End: 06-01-2025 Departed Referred Arvind Tejada -[facility] Start: 06-01-2025 End: 06-01-2025 Patient encounter procedure Arvind Tejada DO Work Phone: [facility] Comment on above: Postoperative follow -up; Encounter for weight management; Menorrhagia with irregular cycle; Abnormal bleeding in menstrual cycle Start: 06-01-2025 End: 06-01-2025 ambulatory ARVIND TEJADA [facility] Work Phone: Start: 05-03-2025 End: 05-03-2025 Bamboo flowsheet Arvind Mallory DO Work Phone: [facility] Start: 05-03-2025 End: 05-03-2025 Bamboo flowsheet Arvind Mallory DO Work Phone: [facility] Start: 05-03-2025 End: 05-03-2025 Office outpatient visit 15 minutes Arvind Mallory DO Work Phone: [facility] Comment on above: Encounter for weight management Start: 05-03-2025 End: 05-03-2025 ambulatory ARVIND MALLORY Not Available Start: 04-27-2025 End: 04-27-2025 ambulatory Arvind Mallory [facility] Work Phone: Start: 04-27-2025 End: 04-27-2025 Departed Referred Arvind Mallory DO Work Phone: [facility] Start: 04-26-2025 End: 04-26-2025 Clinisync Result Encounter [...] 07-05-2024 Emergency department patient visit KAI [facility] Start: 07-04-2024 End: 07-04-2024 ambulatory YESSICA GOVEA Not Available Start: 06-25-2024 End: 06-25-2024 ambulatory Radha Tomas [facility] Work Phone: Start: 06-25-2024 End: 06-25-2024 Departed Referred MD Radha Tomas Work Phone: [facility] Start: 06-21-2024 End: 06-21-2024 ambulatory YESSICA GOVEA Not Available Start: 06-14-2024 End: 06-14-2024 ambulatory ARVIND MALLORY Not Available Start: 06-09-2024 End: 06-09-2024 ambulatory ARVIND MALLORY Not Available Start: 07-14-2020 End: 07-14-2020 Emergency department patient visit OMID KILLIAN [facility] Start: 07-14-2020 End: 07-14-2020 Emergency department patient visit Alicia Hudson Work Phone: [facility] Comment on above: Threatened (Primary Dx) Start: 12-13-2018 End: 12-13-2018 Patient encounter procedure Lauren Rivera [facility] Start: 06-14-2018 End: 06-14-2018 Patient encounter PROVIDER NOT IN SYSTEM [facility] Start: 06-14-2018 End: 06-14-2018 Office outpatient new 30 minutes Provider Not In System [facility] Start: 05-17-2018 End: 05-17-2018 Patient encounter VANESSA ROLAND [facility] Start: 05-17-2018 End: 05-17-2018 Office outpatient new 30 minutes Vanessa Roland Work Phone: [facility] Procedures Date Procedure Procedure Detail Performing Clinician Start: 06-01-2025 ENDOMETRIAL BIOPSY Arvind Mallory DO Work Phone: Start: 06-01-2025 Urine test visual color cmprsn meths Arvind Mallory DO Work Phone: Start: 04-26-2025 XR CHEST 2V Arvind Mallory DO Work Phone: Start: 04-26-2025 ALL CBC WITH AUTO DIFF Arvind Mallory DO Work Phone: Start: 03-30-2025 Urnls dip stick/tablet rgnt non-auto w/o micrscp Arvind Mallory DO Work Phone: Start: 03-02-2025 Urnls dip stick/tablet rgnt non-auto w/o micrscp Arivnd Mallory DO Work Phone: Start: 08-16-2024 IUD [...] Phone: H/O: section S/P sectio n Arvind Tejada DO Work Phone: Plan of Treatment Date Care Activity Detail Author Start: 07-13-2025 End: 07-13-2025 Patient encounter procedure 07/13/2025 11:50 AM EDT Office Visit [facility] [address] [facility] [address] Arvind Tejada, DO [address] [place] [address] [facility] Start: 06-01-2025 End: 06-01-2025 Patient encounter procedure 06/01/2025 10:20 AM EDT Consult [facility] [address] [facility] [facility] [address] Arvind Tejada, DO [address] [place] [address] [facility] Start: 05-03-2025 End: 05-03-2025 Patient encounter procedure [facility] Comment on above: Arrived Start: 05-02-2025 End: 05-02-2025 Patient encounter procedure 05/02/2025 9:30 AM EDT Procedure Visit [facility] [address] [facility] [address] Arvind Tejada, DO [address] [place] [address] [facility] Start: 04-27-2025 End: 04-27-2025 Patient encounter procedure 04/27/2025 10:30 AM EDT Office Visit [facility] [address] [facility] [phone] Arvind Tejada DO [address] [place] [address] [facility] Start: 04-20-2025 End: 04-20-2025 Patient encounter procedure 04/20/2025 11:00 AM EDT Office Visit [facility] [address] [facility] [facility] [phone] Yessica Govea PA [address] [place] [address] [facility] OB Start: 03-30-2025 End: 03-30-2025 Patient encounter procedure 03/30/2025 11:30 AM EDT Office Visit [facility] OB [address] [place] [phone] Arvind Tejada, DO [address] [place] [address] [facility] Start: 03-30-2025 End: 03-30-2025 Professional / ancillary services management 03/30/2025 11:00 AM EDT Ancillary Procedure [facility] [address] [facility] [place] [phone] [facility] OB Start: 03-02-2025 End: 03-02-2026 US Pelvis transvaginal US pelvis transvaginal Imaging Routine Intrauterine device surveillance Abnormal uterine bleeding (AUB) Expected: 03/02/2025, Expires: [facility]02[facility]: Comment on above: Expected: 03/02/2025 , Expires: 03/02/2026 Start: 2025 End: 2025 Patient encounter procedure 2025 2:00 PM EDT Office Visit [facility] [address] [facility] [phone] Arvind Tejada, DO [address] [place] [address] [facility] OB Start: 08-16-2024 End: 08-16-2024 Patient encounter procedure 08/16/2024 1:00 PM EDT Procedure Visit [facility] [address] [facility] [facility] [phone] Arvind Tejada, DO [address] [place] [address] [phone] (work) [facility] Start: 07-31-2020 Influenza vaccinatio n given Sequential Influenza Vaccine (#1) [facility] Start: 07-31-2018 Influenza vaccination [facility] Start: 07-31-2018 Influenza vaccinatio n given SEQUENTIAL INFLUENZA VACCINE (#1) [facility] Start: 07-19-2018 End: 07-19-2018 Ambulatory 07/19/2018 Office Visit Dermatology Vanessa Roland Jr., [address] [place] [address] [phone] [facility] Start: 06-14-2018 End: 06-14-2018 Ambulatory 06/14/2018 Office Visit Cardiology System, Provider Not In [facility], Josefina Matthew MD [address] [place] [address] [phone] [facility] Cardiology Start: 02-21-2010 Hepatitis C antibody , confirmatory test Hepatitis C Screening [facility] Start: 02-21-2007 HIV screening HIV Screening [facility] Start: 02-21-1995 History and physical examination, annual for health maintenance Wellness Visit [facility] Start: 1992 Screening for malign ant neoplasm of cervix PAP SMEAR [facility] Start: 1992 Tetanus vaccination [facility] End: 07-14-2020 Neisseria gonorrhoeae nucleic acid detection Chlamydia/Gonorrhoeae Amplified RNA Microbiology Routine Once for 1 Occurrences starting 07/14/2020 until 07/14/2020 [facility] Comment on above: Once for 1 Occurrenc es starting 07/14/2020 until 07/14/2020 Neisseria gonorrhoea e nucleic acid detection Chlamydia/Gonorrhoeae Amplified RNA Microbiology Routine 07/14/2020 11:20 AM EDT [facility] Payers Date Payer Category Payer Self-pay 2023 Medicaid [facility] MEDIC AID [employer] [place] [id number] 2023-Present [address] [place] [address] [id number] 2023 Private Health Insurance [facility] MEDICAID [id number] 2023 Medicaid [id number] 2020 Medicaid [facility] MEDICAID [facility] MEDICAID xxxxxxxxxxx 2020-Present xxxxxxxxxxx [id number] 2020 Medicaid [id number] 2019 Private Health Insurance [id number] 2017 Unknown [id number] 2017 Unknown [facility] HMO/BECKY/ BECKY PLUS/CHOICE PLUS xxxxxxxxx 2017-Present xxxxxxxxx [id number] 1992 Unknown [id number] [id number]. 903 1992 Unknown [id number] 2.16840.1.842749.3.579.2. 9 1992 Unknown [id number] 2.16840.1.420594.3.579.2. 1259 1992 Unknown [id number] 2.16840.1.299781.3.579.2. 9 1992 Unknown [id number] 2.16840.1.370733.3.579.2. 1259 1992 Unknown [id number] 2.16840.1.457842.3.579.2. 1258 1992 Unknown [id number] 2.16.840.1.330036.3.579.2. 1258 1992 Unknown [id number] 2.16.840.1.462095.3.579.2. 1258 1992 Unknown [id number] 2.16.840.1.118307.3.579.2. 1258 1992 Unknown [id number] 2.16.840.1.539499.3.579.2. 1258 1992 Unknown [id number] 2.16.840.1.363131.3.579.2. 1258 1992 Unknown [id number] 2.16.840.1.866577.3.579.2. 1258 1992 Unknown [id number] [id number]. 1259 Social History Date Type Detail Facility Start: 05-17-2018 End: 06-14-2018 Tobacco smoking status HIIS Never smoker [facility] Sex Assigned At Not on file [facility] Start: 07-14-2020 Tobacco smoking status [facility] Current some day smoker [facility] Start: 07-14-2020 Alcohol intake Current non-drinker of alcohol (finding) [facility] Exposure to SARS-CoV -2 (event) Not sure [facility] Start: 1990 Sex Assigned At Female [facility] consumption unknown [facility] Start: 12-03-2023 Gender identity Identifies as female gender (finding) [facility] Start: 12-03-2023 Sexual orientation Heterosexual (finding) [facility] Start: 04-29-2025 Sex Female (finding) [facility] Clinical Notes 08-09-2024 to 06-01-2025 Latanya Barkley LPN - 06/01/2025 9:50 AM Lety Tejada DO - 05/03/2025 11:00 AM Mindy Barkley LPN - 03/30/2025 11:30 AM Mindy Barkley LPN - 03/02/2025 11:50 AM EDT Note Date & Type Note Facility 06-01-2025 History of Present illness Narrative Associated Order(s): Endometrial biopsy Post-Procedure Diagnose(s): Postoperative follow-up; Encounter for weight management; Menorrhagia with irregular cycle; Abnormal bleeding in menstrual cycle Reason for Appointment: Patient ID: Sabrina Velasquez is a 35 y.o. female who presents for Post-op Visit Patient presents today for a Endometrial Biopsy and Pre Op/Endometrial Biopsy appointment. Patient is scheduled to undergo D&C Hysteroscopy, possible Myosure on 07/07/[address] Tejada at [facility]. appointment. MEDICATIONS Current Outpatient Medications Medication Instructions metFORMIN XR (GLUCOPHAGE-XR) 1,000 mg, Oral, Daily with evening meal, Do not crush, chew, or split. phentermine (ADIPEX-P) 37.5 mg, Oral, Daily before breakfast ALLERGIES No Known Allergies PROBLEMS Active Ambulatory Problems Diagnosis Date Noted No Active Ambulatory Problems Resolved Ambulatory Problems Diagnosis Date Noted No Resolved Ambulatory Problems Past Medical History: Diagnosis Date Drug abuse ([facility]) H/O chlamydia infection H/O gonorrhea H/O herpes simplex infection Rh negative, maternal ([facility]) HISTORY PAST MEDICAL HISTORY SOCIAL HISTORY Past Medical History: Diagnosis Date Drug abuse ([facility]) H/O....PT IS CURRRENTLY 7 MONTHS SOBER OF 12/10/2023 H/O chlamydia infection H/O gonorrhea H/O herpes simplex infection Rh negative, maternal ([facility]) Social History Tobacco Use Smoking status: Not [...] Negative. Genitourinary: Positive for menstrual problem and vaginal bleeding. Musculoskeletal: Negative. Skin: Negative. Neurological: Negative. All [...] nursing note reviewed. Exam conducted with a rug cleaner helper present. Vitals: Estimated body mass index is 41.04 kg/m as calculated from the following: Height as of 07/06/24: 5' 6 . Weight as of this encounter: 254 lb 4 oz. BP: 110/74 No LMP recorded. ASSESSMENT & PLAN Assessment/Plan Encounter Diagnosis: ICD-10-CM 1. Postoperative follow-up Z09 POCT , urine manually resulted 2. Encounter for weight management Z76.89 phentermine (Adipex-P) 37.5 MG tablet DISCONTINUED: phentermine (Adipex-P) 37.5 MG tablet Endometrial biopsy Date/Time: 06/01/2025 10:19 AM Performed by: Arvind Tejada DO Authorized by: Arvind Tejada DO Consent: Consent obtained: written Consent given by: patient Patient agrees, verbalizes understanding, and wants to proceed: yes Indications: Indications: abnormal uterine bleeding and other menstrual disorder Pre-procedure: Urine test: negative Procedure: A bimanual exam was performed: no Prepped with: none Tenaculum used: yes A local block was performed: no Cervix dilated: no Number of passes: 2 Findings: Cervix: normal Specimen collected: specimen collected and sent to pathology Patient tolerance: tolerated well, no immediate complications EMBX: Patient was placed in dorsal lithotomy position with feet in stirrups. A sterile speculum was placed into the vagina and the cervix was visualized. The cervix was grasped with a single tooth tenaculum. The endometrial pipette was placed through the cervix into the uterus, endometrial curettage was performed and sampling was obtained, endometrial curettings were placed in formalin, and single tooth tenaculum was removed. Excellent hemostasis was assured. All instruments were removed from vagina. Pre Op: Patient is doing well but has complaints of AUB, menorrhagia and irregular cycles. I have discussed conservative management vs. surgical management with the patient in detail and patient desires surgical management at this time. Patient will undergo D&C Hysteroscopy, possible Myosure on 07/07/2025. Surgical consents were signed, mmc was reviewed, and patient is to proceed to [facility] OR. Follow Up: Patient is to follow up between 1-2 weeks post operative to assess proper healing and recovery from procedure. Documented by Latanya Barkley LPN on behalf of: Arvind Tejada DO documented in this encounter [facility] 05-03-2025 History of Present illness Narrative Reason for Appointment: Patient ID: Sabrina Velasquez is a 35 y.o. female who presents for Post-op Visit and Weight Management Patient presents today for Medication Follow Up appointment. Current Medications: has a current medication list which includes the following prescription(s): metformin xr, phentermine, and phentermine. Medical History: Active Ambulatory Problems Diagnosis Date Noted No Active Ambulatory Problems Resolved Ambulatory Problems Diagnosis Date Noted No Resolved Ambulatory Problems Past Medical History: Diagnosis Date Drug abuse H/O chlamydia infection H/O gonorrhea H/O herpes simplex infection Rh negative, maternal No family history on file. Social History Tobacco Use Smoking status: Not on file Smokeless tobacco: Not on file Substance Use Topics Alcohol use: Not on file Drug use: Not on file Past Surgical History: Procedure Laterality Date SECTION, LOW TRANSVERSE 06/23/2024 GASTRIC BYPASS No Known Allergies Review of Systems: Review of Systems All other systems reviewed and are negative. Objective Physical Exam Constitutional: Appearance: Normal appearance. She [...] nursing note reviewed. Exam conducted with a rug cleaner helper present. Vitals: Estimated body mass index is 41.87 kg/m as calculated from the following: Height as of 24: 5' 6 . Weight as of this encounter: 259 lb 6.4 oz. BP: 116/74 No LMP recorded. Assessment/Plan Encounter Diagnosis: ICD-10-CM 1. Encounter for weight management Z76.89 phentermine (Adipex-P) 37.5 MG tablet Patient presents today for 2nd Adipex prescription. Patient desires additional weigh loss and she is currently taking metformin along with working out to achieve further results. The possibility of Ozempic for future use has been discussed. Weight and blood pressure has been captured and it has been discussed/reiterated the importance of keeping a food journal, proper nutrition/diet, and exercise regimen. Patient verbalized understanding. Patient has lost more than 5% of her initial body weight Follow Up: Patient is to return to the office in 1 month for further evaluation to assess patient progress. Weight and blood pressure will need to be obtained in order for patient to receive 4th Adipex prescription. Documented by Arvind Tejada DO on behalf of: Arvind Tejada DO documented in this encounter [facility] 03-30-2025 History of Present illness Narrative Reason for Appointment: Patient ID: [...] nursing note reviewed. Exam conducted with a rug cleaner helper present. Vitals: Estimated body mass index is [...] Arvind Tejada DO documented in this encounter [facility] 03-02-2025 History of Present illness Narrative Reason for Appointment: Patient ID: [...] nursing note reviewed. Exam conducted with a rug cleaner helper present. Vitals: Estimated body mass index is [...] Arvind Tejada DO documented in this encounter [facility] 08-16-2024 History of Present illness Narrative Associated Order(s): IUD Insertion Post-Procedure [...] nursing note reviewed. Exam conducted with a rug cleaner helper present. Vitals: Estimated body mass index is [...] given: yes Instructions and paperwork completed: yes [place] protocol: Patient states understanding of procedure being [...] Arvind Tejada DO documented in this encounter [facility] 08-09-2024 History of Present illness Narrative Reason for Appointment: Patient ID: [...] 800 mg, Oral, Every 6 hours PRN [id number]-Bxi-Va-[id number] ( 1 + IRON PO) Oral ALLERGIES No Known Allergies PROBLEMS Active Ambulatory Problems Diagnosis Date Noted No Active Ambulatory Problems Resolved Ambulatory Problems Diagnosis Date Noted No Resolved Ambulatory Problems Past Medical History: Diagnosis Date Drug abuse ([facility]) H/O chlamydia infection H/O gonorrhea H/O herpes simplex infection Rh negative, maternal HISTORY PAST MEDICAL HISTORY SOCIAL HISTORY Past Medical History: Diagnosis Date Drug abuse (CMS/HCC) H/O....PT IS CURRRENTLY 7 MONTHS SOBER OF [...] nursing note reviewed. Exam conducted with a rug cleaner helper present. Vitals: Estimated body mass index is [...] Arvind Tejada DO documented in this encounter [facility] Evaluation note No assessment inform ation available [facility] Work Phone: Evaluation note Diagnosis 6 weeks follow-up S/P section Other postprocedural status documented in this encounter [facility] HealthcareEvaluation note* Diagnosis Encounter for IUD insertion Insertion of intrauterine contraceptive device documented in this encounter [facility] Healthcare[facility]* Diagnosis Intrauterine device surveillance Abnormal uterine bleeding (AUB) Encounter for weight management Hidradenitis suppurativa Hidradenitis documented in this encounter [facility] Healthcare[facility]* Diagnosis Encounter for weight management Abnormal uterine bleeding (AUB) Sterilization consult Other general counseling and advice for contraceptive management documented in this encounter [facility] Healthcare[facility]* Diagnosis Encounter for weight management documented in this encounter [facility] Healthcare[facility]* Diagnosis Postoperative follow-up Follow-up examination, following unspecified surgery Encounter for weight management Menorrhagia with irregular cycle Abnormal bleeding in menstrual cycle documented in this encounter [facility] HealthcareReason for referral (narrative)No reason for referral information availableC[facility] Work Phone: Assessments Note Patient: SABRINA VELASQUEZ MRN : ([id number] Age: 29 years Sex: Female : 1990 [...] for home later today Logan Driscoll MD [phone] SURGERY PROGRESS NOTE SUBJECTIVE: Patient denies abd [...] Documents on File Type Date Recorded Patient [employer] 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 [place] 09/16/18 14:45 [address] [place]. [address] PATIENT INFORMATION Name: SABRINA VELASQUEZ Address: [address] [place] [address] Age: 28 Years Phone: [phone] : 1990 12:00 MRN: ([facility])-[id number] Sex: Female Race: White Ethnicity: Declined Admitted From: Clinic or Phys Ofc Medical Service: Surgery Nurse Unit/Bed: (CO) [id number] N/A Admit Date: 09/16/2018 13:46 PCP: Omid [...] summary document to your follow up appointments. [facility] 03/01/19 18:42 [address] [place]. [address] PATIENT INFORMATION Name: SABRINA VELASQUEZ Address: [address] [place] [phone] Age: 29 Years Phone: [phone] : 1990 12:[birth year] MRN: ([id number] Sex: Female Race: White Ethnicity: Declined Admitted From: Clinic or Phys Ofc Medical Service: Surgery Nurse Unit/Bed: (CO) 7TWH 9Y71-94 Admit Date: 02/28/2019 08:18 PCP: Omid Killian MD PHYSICIANS INVOLVED WITH CARE Attending Physicians: Marcellus Driscoll MD - Surgery Admitting Physician: Marcellus Driscoll MD - Surgery Primary Care Physician:Omid Killian MD, - Consults: None found Problems Active Morbid (severe) obesity due to excess calories Obesity IBS (irritable bowel syndrome) GERD (gastroesophageal reflux (more content not included)... Note Patient: SABRINA VELASQUEZ MRN : [id number] Age: 29 years Sex: Female : 1990 [...] GERD, IBS, and heart murmur presented to [facility] on 02/28/2019 for an elective robotically assisted laparoscopic Milton-en-Y gastric bypass with by Purnima albarran an had an extensive preoperative workup. Patient tolerated the procedure well and was transferred to PACU in stable condition where she had an uneventful recovery. His then tra (more content not included)... Note Patient: SABRINA VELASQUEZ MRN : [id number] Age: 29 years Sex: Female : 1990 [...] for home later today Logan Driscoll MD [phone] SURGERY PROGRESS NOTE SUBJECTIVE: Patient denies abd [...] (02/28 12:00 (more content not included)... Note [facility] Patient Name: Sabrina Velasquez Procedure [...] not included)... Note Patient: SABRINA VELASQUEZ MRN: [facility])-[id number] Age: 28 years Sex: Female : 1990 Associated Diagnoses: None Author: Kasie Delvalle CRNA Supervising Physician Comments Documentation By: Certified Registered Nurse Medical Massage Therapist. Subjective Subjective: Patient participated in the evaluation: [...] concluded. Note Patient: SABRINA VELASQUEZ MRN : [facility])-[id number] Age: 29 years Sex: Female : 1990 [...] (more content not included)... Procedure Findings Note [facility] Patient Name: Sabrina Velasquez Procedure Date: 09/16/2018 1:40 PM Date of : 1990 Age: 28 Gender: Female Procedure: Upper GI endoscopy Indications: Suspected esophageal reflux, Preoperative assessment for bariatric surgery to treat morbid obesity Providers: TRISTAN TATE MD , KASIE R. VUAGNIESZKA WILD ANTHONY M. DOMINIC, MD Referring MD: OMID KILLIAN MD Requesting Provider: Medicines: Monitored Anesthesia Care Complications: No immediate complications. Procedure: Pre-Anesthesia Assessment: - Prior to the procedure, a History and Physical was performed, and patient medications, allergies and sensitivities were reviewed. The patient's tolerance of previous anesthesia was reviewe (more content not included)... Note Patient: SABRINA VELASQUEZ MRN: [facility])-[id number] Age: 28 years Sex: Female : 1990 Associated Diagnoses: None Author: Kasie Delvalle CRNA Supervising Physician Comments Documentation By: Certified Registered Nurse Medical Massage Therapist. Subjective Subjective: Patient participated in the evaluation: [...] concluded. Note Patient: SABRINA VELASQUEZ MRN : [facility])-[id number] Age: 29 years Sex: Female : 1990 [...] sent through Care Everywhere. * Miscarriage: Threatened ([place]) documented in this encounter Additional Source Comments [...] nondistended Alicia Hudson MD ED Attending Physician [facility] Emergency Department documented in this encounter INFORMATION SOURCE (unrecogn ized section and content) DATE CREATED AUTHOR 06/15/2018 [facility] DATE CREATED AUTHOR AUTHOR'S ORGANIZ ATION 08/09/2019 [facility] DATE CREATED AUTHOR AUTHOR'S ORGANIZ ATION 12/27/2020 [facility] DATE CREATED AUTHOR AUTHOR'S ORGANIZ ATION 07/08/2024 [facility] DATE CREATED AUTHOR AUTHOR'S ORGANIZ ATION 06/03/2025 [facility] EPIC DATE CREATED AUTHOR AUTHOR'S ORGANIZ ATION 06/10/[address] [facility] y[facility] Reason for Visit (unrecogniz ed section and [...] medication follow up encounter for weight management Reason Comments Post-op Visit Weight Management Reason Comments Post-op Visit Chris Pate PA-C - 07/14/2020 10:43 AM EDTWDorinda roblero RN - 07/14/2020 10:07 AM EDTWDorinda roblero RN - 07/14/2020 10:04 AM EDT ED Notes (unrecognized secti on and content) ED PROVIDER NOTE [facility] EMERGENCY DEPARTMENT NAME: Sabrina Velasquez AGE: 30 y.o. : 1990 VISIT DATE: 07/14/2020 CSN: [id number] PCP: Omid Killian MD Clinical Impression: 1. Threatened ED Disposition ED Disposition Condition Comment Discharge Stable Sabrina Velasquez discharged to home/self care in stable condition. Follow-up Information 1. Roni Clemens MD. Specialty: Obstetrics/Gynecology Why: For recheck of today's symptoms [address] [facility] [address] 2. [facility] Emergency Department. Specialty: Emergency Medicine Why: As needed, If symptoms worsen [address] [facility] [address] Contact information for after-discharge care Follow-up information [...] this point clinically. Patient has appointment with INSPECTOR CHIEF on Thursday. Considered implantation bleeding, threatened , [...] reports she is scheduled to see her INSPECTOR CHIEF Dr. Clemens next week. Patient denies any [...] file Gets together: Not on file Attends sikhism service: Not on file Active member of [...] nursing note reviewed. Exam conducted with a rug cleaner helper present. Constitutional: Appearance: Normal appearance. HENT: Head: [...] Colorless, Yellow Clarity, Urine Clear Clear Specific [place] 1.011 1.005 - 1.025 pH, Urine 7.0 [...] of is believed most likely. [facility] Workstation ID: [id number] Procedures The patient [...] pre-hypertension or hypertension. . Chris Pate PA-C [facility] Emergency Department Chris Paet PA-C 07/14/20 1340 Bed: 24 Expected date: [...] June 25, 2024 End: June 25, 2024 Team Status: Inactive Member Role Status Dates Arvind Tejada DO Attending Provider Active Start : April 27, 2025 End: April 27, 2025 Team Status: Inactive Member Role Status Dates Arvind Tejada DO Attending Provider Active Start : June 01, 2025 End: June 01, 2025 Goals (unrecognized section and content) Goals may be documented in a n alternate sectionGoals may be documented in an alternate sectionGoals may be documented in an alternate section FOR RECORDS PERTAINING TO PATIENTS [...] BE BASED ON THE PRIMARY CLINICAL RECORDS. [employer] provides no warranty or guarantee of the accuracy or completeness of information in this document.
--- NOTE | 2025-06-21 09:45 | PM.PRESUREVA ---
History of Present Illness History of Present Illness Chief complaint: Menorrhagia, AUB, Pelvic Pain Narrative: Patient presents for presurgical testing. The patient reports menorrhagia with irregular cycles. The patient had a salpingectomy and ovarian cystectomy on April 27, 2025 and states she did well with that procedure. Her last menstrual period was June 03, 2025. She states at the current time she is not experiencing any symptoms and denies abdominal pain, abnormal vaginal bleeding, nausea, vomiting, dysuria, or any other complaints. Review of Systems ROS Narrative REVIEW OF SYSTEMS: Negative except as stated in HPI, ten or more systems reviewed. Constitutional: No fever, chills, weakness ENT: No sore throat or epistaxis Cardiovascular: No edema, chest pain, palpitations, or activity intolerance Respiratory: No shortness of breath, cough, or wheezing Musculoskeletal: No joint pain or swelling Gastrointestinal: No abdominal pain, constipation, diarrhea, or vomiting Genitourinary: No dysuria or hematuria Neurological: No numbness, tingling, weakness, or headache Psychiatric: No mood changes PFSH PFS Medical History (Updated 06/21/25 @ 09:44 by Gissell [place] NP) Pelvic pain ?R10.2 - Pelvic and perineal pain (ICD-10) Abnormal uterine bleeding (AUB) ?N93.9 - Abnormal uterine and vaginal bleeding, unspecified (ICD-10) Menorrhagia ?N92.0 - Excessive and frequent menstruation with regular cycle (ICD-10) Anxiety ?F41.9 - Anxiety disorder, unspecified (ICD-10) Heart murmur ?R01.1 - Cardiac murmur, unspecified (ICD-10) Herpes simplex ?B00.9 - Herpesviral infection, unspecified (ICD-10) Gonorrhea ?A54.9 - Gonococcal infection, unspecified (ICD-10) Chlamydia ?A74.9 - Chlamydial infection, unspecified (ICD-10) History of drug abuse ?F19.11 - Other psychoactive substance abuse, in remission (ICD-10) Retained intrauterine contraceptive device (IUD) ?T83.39XA - Other mechanical complication of intrauterine contraceptive device, initial encounter (ICD-10) Request for sterilization ?Z30.2 - Encounter for sterilization (ICD-10) Term ?Z34.90 - Encounter for supervision of normal , unspecified, unspecified trimester (ICD-10) Surgical History (Updated 06/21/25 @ 09:16 by Gissell [place] NP) History of salpingectomy (04/27/25) ?Z90.79 - Acquired absence of other genital organ(s) (ICD-10) S/P primary low transverse ?Z98.891 - History of uterine scar from previous surgery (ICD-10) History of tonsillectomy ?Z90.89 - Acquired absence of other organs (ICD-10) Gastric bypass status for obesity ?Z98.84 - Bariatric surgery status (ICD-10) Family History (Updated 04/26/25 @ 12:43 by Gissell [place] NP) Other Family history of diabetes mellitus Family history of hypertension Family history of myocardial infarction Social History (Updated 04/27/25 @ 11:01 by Danielle Tello) Within the past year, how often did you have six or more drinks on one occasion: never Smoking status: Current every day smoker What tobacco products do you use: cigarettes Cigarettes per day: 15 Do you use any of these nicotine containing products: vaping products Nicotine containing products detail: last night Non-prescribed substance use: former substance user Non-prescribed substance use details: history of meth use 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 Highest level of school completed/degree received: high school graduate Meds Home Medications and Allergies Home Medications ?Medication ?Instructions ?Recorded ?Confirmed ?Type metformin 500 mg tablet,extended 500 mg PO BID 04/26/25 06/21/25 History release 24 hr phentermine 37.5 mg tablet 37.5 mg PO DAILY 04/26/25 06/21/25 History Allergies Allergy/AdvReac Type Severity Reaction Status Date / Time No Known Drug Allergies Allergy Verified 06/21/25 09:21 Exam Narrative Exam Narrative: Constitutional: Awake, alert, comfortable, well-appearing, nontoxic, interactive, vital signs as charted Head: Normocephalic, atraumatic Neck: Supple, normal appearance, normal range of motion, no meningeal signs, no lymphadenopathy Respiratory: No respiratory distress, breath sounds clear Cardiovascular: Regular rate and rhythm, strong and regular heart tones Abdomen: Nontender, normal bowel sounds, soft, no CVA tenderness Musculoskeletal: Normal gait, no swelling or edema Skin: No rashes or induration, no lesions, only visible skin inspected Neuro: No neurological deficits, normal sensation Psychiatric: Oriented ?3, normal affect Assessment and Plan Assessment and Plan (1) Pelvic pain: (2) Abnormal uterine bleeding (AUB): (3) Menorrhagia: Plan Endometrial ablation Anna scheduled with Dr. Tejada July 07, 2025.
== END 2025-06-21 08:56 | disposition home or self-care (01) ==
LOC: PST 08:56
PROVIDERS: Visit Provider Obstetrics & Gynecology
DX: Z01.818 Encounter for other preprocedural examination (principal); N92.0 Excessive and frequent menstruation with regular cycle; N93.9 Abnormal uterine and vaginal bleeding, unspecified; R10.2 Pelvic and perineal pain
CPT/HCPCS: G0463

== ENCOUNTER 2025-07-07 06:06 | Day surgery (SDC) | payer OTHER, SELFPAY ==
[2025-06-21 09:42] VITALS: BP 123/73; PULSE 60; TEMP 36.3; O2SAT 100; BMI 40.4
[2025-07-07] VITALS (8 sets, daily range): BP systolic 100–136; BP diastolic 69–100; PULSE 62–91; TEMP 35.9–36.3; O2SAT 98–100; BMI 41.2
--- OUTSIDE RECORDS SUMMARY | 2025-07-07 06:08 | XMS_ITS | Encounter Summary ---
Author Organization [facility] Address [address] [place] [address] Care Team Providers Care Arbor End Mainspring Former Name Role Phone Unavailable Primary Care Provider Unavailabl e Encounter Details Date Type Department Care Team (Late st Contact Info) Description 04/27/2025 Abstract [facility] [address] [place] [phone] Arvind Tejada DO [address] [place] [address] Taina [place]josa, [facility] Social History Tobacco Use Types Packs/Day Years [...] Description 07/13/2025 11:50 AM EDT Office Visit LILIA MCHUGH [address] [place] [address] [place] [phone] Arvind Tejada DO [address] [place], [place] [id number] documented as of this encounter Visit Diagnoses Not on filedocumented in this encounter
--- OUTSIDE RECORDS SUMMARY | 2025-07-07 06:08 | XMS_ITS | Encounter Summary ---
Author Organization [facility] Address [address] [place] [address] Care Team Providers Care Wire Stitcher Machine Name Role Phone Unavailable Primary Care Provider Unavailabl e Encounter Details Date Type Department Care Team (Late st Contact Info) Description 02/24/2024 Clinisync Result Encounter [facility] External Department Unsolicited Lia Tejada, DO [address] [place] [address] Social History Tobacco Use Types Packs/Day Years [...] Description 07/13/2025 11:50 AM EDT Office Visit [facility] [place] [facility] [address] [place] [address] Lia Tejada DO [address] [place] [address] documented as of this encounter Procedures Procedure Name Priority Date/Time Associated Diagnosis Comments US OB CERVICAL LENGTH 02/24/2024 3:02 PM EDT documented in this encounter Results * US OB CERVICAL LENGTH (02/24/2024 3:02 PM EDT) Anatomical Region Laterality Modality Other 02/24/2024 3:02 PM EDT Narrative 02/24/2024 3:05 [place] [address] Ultrasound Report Signed Patient: JOHANNA VELASQUEZ MR#: [id number] : 1990 Acct:[id number] Age/Sex: 34 / F ADM Date: 02/24/24 Loc: [facility] Attending Dr: Lia Tejada D.O. Ordering Physician: Lia Tejada D.O. Date of Service: 02/24/24 Procedure(s): US OB cervical length Accession Number(s): [id number] cc: Lia Tejada D.O.; Physician,Non-Staff [place] [address] Patient Name: JOHANNA VELASQUEZ MRN: [id number] date: 1990 Sex: F Assigned Patient Location: [facility] Current Patient Location: [facility] Accession/Order Number: [id number] Exam Date: 02/24/2024 13:40 Report Date: 02/24/2024 [...] Signed By: 02/24/24 1505 DD/ 1502 TD/TT: Supervisor Vegetable Farming: Procedure Note Radiology, Radiologist, MD - 02/24/2024 [place] [address] Ultrasound Report Signed Patient: JOHANNA VELASQUEZMR#: [id number] : 1990Acct:[id number] Age/Sex: 34 / FADM Date: 02/24/24 Loc: [facility] Attending Dr: Lia Tejada D.O. Ordering Physician: Lia Tejada D.O. Date of Service: 02/24/24 Procedure(s): US OB cervical length Accession Number(s): [id number] cc: Lia Tejada D.O.; Physician,Non-Staff [place] The [place] [address] Patient Name: JOHANNA VELASQUEZ MRN: [id number] date: 1990 Sex: F Assigned Patient [facility] Current Patient [facility] Accession/Order Number: [id number] Exam Date: 02/24/2024 13:40 Report Date: 02/24/2024 [...] M.D. Signed By:02/24/24 1505 DD/ 1502 TD/TT: Supervisor Vegetable Farming: us Lia Mallory DO [facility] Final Result documented in this encounter Visit Diagnoses Not on filedocumented in this encounter
--- OUTSIDE RECORDS SUMMARY | 2025-07-07 06:08 | XMS_ITS | Encounter Summary ---
Author Organization [facility] Address [address] [place] [address] Care Team Providers Care Professional Bass Fisherman Name Role Phone Unavailable Primary Care Provider Unavailabl e Encounter Details Date Type Department Care Team (Late st Contact Info) Description 06/17/2024 Clinisync Result Encounter [facility] External Department Unsolicited Lia Tejada, DO [address] [place] [address] Social History Tobacco Use Types Packs/Day Years [...] Office Visit [facility] [place] [facility] [address] [place] [address] Lia Tejada DO [address] [place] [address] documented as of this encounter Procedures Procedure Name Priority Date/Time Associated Diagnosis Comments US OB BPP W NON-STRESS 06/17/2024 10:32 AM EDT documented in this encounter Results * US OB BPP W NON-STRESS (06/17/2024 10:32 AM EDT) Anatomical Region Laterality Modality Other 06/17/2024 10:3 2 AM EDT Narrative 06/17/2024 10:35 [place] [address] Ultrasound Report Signed Patient: JOHANNA VELASQUEZ MR#: [id number] : 1990 Acct:[id number] Age/Sex: 34 / F ADM Date: 06/17/24 Loc: [facility] 250-[address]: Lia Tejada D.O. Ordering Physician: Lia Tejada D.O. Date of Service: 06/17/24 Procedure(s): US OB BPP w non-stress Accession Number(s): [id number] cc: Lia Tejada D.O.; Physician,Non-Staff [place] [id number] Patient Name: JOHANNA VELASQUEZ MRN: [id number] date: 1990 Sex: F Assigned Patient Location: [facility] Current Patient Location: [facility] Accession/Order Number: [id number] Exam Date: 06/17/2024 09:42 Report Date: 06/17/2024 [...] Signed By: 06/17/24 1035 DD/ 1032 TD/TT: Energy Systems Laboratory Director: Procedure Note Radiology, Radiologist, MD - 06/17/2024 [place] [address] Ultrasound Report Signed Patient: JOHANNA VELASQUEZMR#: [id number] : 1990Acct:[id number] Age/Sex: 34 / FADM Date: 06/17/24 Loc: [facility] 250-[address]: Lia Tejada D.O. Ordering Physician: Lia Tejada D.O. Date of Service: 06/17/24 Procedure(s): US OB BPP w non-stress Accession Number(s): [id number] cc: Lia Tejada D.O.; Physician,Non-Staff Estee The [address] [address] Patient Name: JOHANNA VELASQUEZ MRN: [facility]:[id number] date: 1990 Sex: F Assigned Patient Location: [facility] Current Patient Location: [facility] Accession/Order Number: [id number] Exam Date: 06/17/2024 09:42 Report Date: 06/17/2024 [...] 10:32 Dictated By: Pa Quinn M.D. Signed By:06/17/245 DD/ 103 TD/TT: Energy Systems Laboratory Director: us Lia Starro DO [facility] Final Result documented in this encounter Visit Diagnoses Not on filedocumented in this encounter
--- OUTSIDE RECORDS SUMMARY | 2025-07-07 06:08 | XMS_ITS | Encounter Summary ---
Author Organization [facility] Address [address] [place] [address] Care Team Providers Care Stonework Tracer Name Role Phone Unavailable Primary Care Provider Unavailabl e Encounter Details Date Type Department Care Team (Late st Contact Info) Description 06/07/2025 Abstract [facility] [address] [facility] [place] [address] Padmini Arias MA Social History Tobacco Use Types Packs/Day Years [...] 11:50 AM EDT Office Visit LILIA [facility]UGH [address] [place] [address] Arvind Tejada DO [address] [place], [facility]11 documented as of this encounter Visit Diagnoses Not on filedocumented in this encounter
--- OUTSIDE RECORDS SUMMARY | 2025-07-07 06:08 | XMS_ITS | Encounter Summary ---
Author Organization [facility] Address [address] [place] [address] Care Team Providers Care Award Clerk Name Role Phone Unavailable Primary Care Provider Unavailabl e Encounter Details Date Type Department Care Team (Late st Contact Info) Description 02/24/2024 Clinisync Result Encounter [facility] External Department Unsolicited Lia Tejada, DO [address] [place] [address] Social History Tobacco Use Types Packs/Day Years [...] Office Visit [facility] [place] [facility] [address] [place] [address] Lia Tejada DO [address] [place] [address] documented as of this encounter Procedures Procedure Name Priority Date/Time Associated Diagnosis Comments US OB ANATOMY 02/24/2024 3:02 PM EDT documented in this encounter Results * US OB ANATOMY (02/24/2024 3:02 PM EDT) Anatomical Region Laterality Modality Other 02/24/2024 3:02 PM EDT Narrative 02/24/2024 3:05 PM EDT [address] [address] Ultrasound Report Signed Patient: JOHANNA VELASQUEZ MR#: [id number] : 1990 Acct:[id number] Age/Sex: 34 / F ADM Date: 02/24/24 Loc: [facility] Attending Dr: Lia Tejada D.O. Ordering Physician: Lia Tejada D.O. Date of Service: 02/24/24 Procedure(s): US OB anatomy Accession Number(s): [id number] cc: Lia Tejada D.O.; Physician,Non-Staff MLilian [address] [address] Patient Name: JOHANNA VELASQUEZ MRN: [id number] date: 1990 Sex: F Assigned Patient Location[facility] Current Patient Location: [facility] Accession/Order Number: [id number] Exam Date: 02/24/2024 13:41 Report Date: 02/24/2024 [...] Quinn M.D. Signed By: 02/24/24 1505 DD/ 150 TD/TT: Highway Research Engineer: Procedure Note Radiology, Radiologist, MD - 02/24/2024 [place] [address] Ultrasound Report Signed Patient: JOHANNA VELASQUEZMR#: [id number] : 1990Acct:[id number] Age/Sex: 34 / FADM Date: 02/24/24 Loc: [facility] Attending Dr: Lia Tejada D.O. Ordering Physician: Lia Tejada D.O. Date of Service: 02/24/24 Procedure(s): US OB anatomy Accession Number(s): [id number] cc: Lia Tejada D.O.; Physician,Non-Staff [place] The [place] [address] Patient Name: JOHANNA VELASQUEZ MRN: [id number] date: 1990 Sex: F Assigned Patient Location: [facility] Current Patient [facility]: [facility] Accession/Order Number: [id number] Exam Date: 02/24/2024 13:41 Report Date: 02/24/2024 [...] M.D. Signed By:02/24/24 1505 DD/ 1502 TD/TT: Highway Research Engineer: us Lia Mallory DO [facility] Final Result documented in this encounter Visit Diagnoses Not on filedocumented in this encounter
--- OUTSIDE RECORDS SUMMARY | 2025-07-07 06:08 | XMS_ITS | Encounter Summary ---
Author Organization [facility] Address [address] [place] [address] Care Team Providers Care Utility Manager Name Role Phone Unavailable Primary Care Provider Unavailabl e Encounter Details Date Type Department Care Team (Late st Contact Info) Description 04/27/2025 Abstract [facility] [address] [place] [phone] Arvind Tejada DO [address] [place] [address] Taina [place], [facility]11 Social History Tobacco Use Types Packs/Day [...] 11:50 AM EDT Office Visit LILIA MCHUGH [address] [place] [address] [place] [phone] Arvind Tejada DO [address] [place], [place] [address] documented as of this encounter Visit Diagnoses Not on filedocumented in this encounter
--- OUTSIDE RECORDS SUMMARY | 2025-07-07 06:08 | XMS_ITS | Encounter Summary ---
Author Organization [facility] Address [address] [place] [address] Care Team Providers Care Card Scraper Name Role Phone Unavailable Primary Care Provider Unavailabl e Encounter Details Date Type Department Care Team (Late st Contact Info) Description 06/15/2024 Abstract [facility] [address] [place] [address] Lizbeth Lomas LPN [address] [employer] [place] [address] Social History Tobacco Use Types Packs/Day Years [...] 07/13/2025 11:50 AM EDT Office Visit [facility] [address] [place] [address] Arvind Tejada DO [address] [place], [place] [address] documented as of this encounter Visit Diagnoses Not on filedocumented in this encounter
--- OUTSIDE RECORDS SUMMARY | 2025-07-07 06:08 | XMS_ITS | Encounter Summary ---
Author Organization [facility] Address [address] [place] [address] Care Team Providers Care Supervisor Of Guidance And Testing Name Role Phone Unavailable Primary Care Provider Unavailabl e Encounter Details Date Type Department Care Team (Late st Contact Info) Description 06/24/2024 Abstract [facility] [address] [place] [address] Candi Ozuna LPN [address] [employer] [place] [id number] Social History Tobacco Use Types Packs/Day Years [...] 11:50 AM EDT Office Visit [facility] [address] [place] [address] Arvind Tejada DO [address] [place], [place] [address] documented as of this encounter Visit Diagnoses Not on filedocumented in this encounter
--- OUTSIDE RECORDS SUMMARY | 2025-07-07 06:08 | XMS_ITS | Clinical Summary ---
Author Organization [facility] Address [id number] [address] [place] [address] Care Team Providers Care Dye Tub Operator Name Role Phone MalloryArvind bearden Primary Care Provider [phone] Allergies No known active allergies Medications ibuprofen [...] on file Insurance [employer] Care Teams Dye Tub Operator Relationship Specialty Start Date End Date Arvind Tejada DO PCP - General Obstetrics & Gynecology 07/05/24
--- OUTSIDE RECORDS SUMMARY | 2025-07-07 06:08 | XMS_ITS | Encounter Summary ---
Author Organization [facility] Address [address] [place] [address] Care Team Providers Care Cake Tester Name Role Phone Unavailable Primary Care Provider Unavailabl e Encounter Details Date Type Department Care Team (Late st Contact Info) Description 04/27/2025 Abstract [facility] [address] [place] [address] Arvind Tejada DO [address] [place] [address] Taina [place], [facility]11 Social History Tobacco Use Types Packs/Day [...] 11:50 AM EDT Office Visit LILIA MCHUGH [address] [place] [address] [place] [phone] Arvind Tejada DO [address] [place], [place] [address] documented as of this encounter Visit Diagnoses Not on filedocumented in this encounter
--- OUTSIDE RECORDS SUMMARY | 2025-07-07 06:08 | XMS_ITS | Encounter Summary ---
Author Organization [facility] Address [address] [place] [address] Care Team Providers Care Trailer Truck Driver Name Role Phone Unavailable Primary Care Provider Unavailabl e Encounter Details Date Type Department Care Team (Late st Contact Info) Description 06/22/2024 Abstract [facility] [address] [place] [address] [place] [phone] Arvind Tejada DO [address] [place] [address] Taina [place], [facility]11 Social History Tobacco Use Types Packs/Day Years [...] 11:50 AM EDT Office Visit LILIA MCHUGH [address] [place] [address] [place] [phone] Arvind Tejada DO [address] [place], [place] [address] documented as of this encounter Visit Diagnoses Not on filedocumented in this encounter
--- OUTSIDE RECORDS SUMMARY | 2025-07-07 06:08 | XMS_ITS | Encounter Summary ---
Author Organization [facility] Address [address] [place] [address] Care Team Providers Care Animal Humane Agent Supervisor Name Role Phone Unavailable Primary Care Provider Unavailabl e Encounter Details Date Type Department Care Team (Late st Contact Info) Description 06/21/2024 Abstract [facility] [address] [place] [address] [place] [phone] Arvind Tejada DO [address] [place] [address] Taina [place], [facility]11 Social History Tobacco Use Types [...] 11:50 AM EDT Office Visit LILIA MCHUGH [address] [place] [address] [place] [phone] Arvind Tejada DO [address] [place], [place] [address] documented as of this encounter Visit Diagnoses Not on filedocumented in this encounter
--- OUTSIDE RECORDS SUMMARY | 2025-07-07 06:08 | XMS_ITS | Encounter Summary ---
Author Organization [facility] Address [address] [place] [address] Care Team Providers Care Senior Research Fellow Name Role Phone Unavailable Primary Care Provider Unavailabl e Encounter Details Date Type Department Care Team (Late st Contact Info) Description 12/10/2023 Clinisync Result Encounter [facility] External Department Unsolicited Lia Tejada, DO [address] [place] [address] Social History Tobacco Use Types Packs/Day Years [...] Office Visit [facility] [place] [facility] [address] [place] [address] Lia Tejada DO [address] [place] [address] documented as of this encounter Procedures Procedure Name Priority Date/Time Associated Diagnosis Comments US OB TRANSVAGINAL 12/10/2023 1: 24 PM EST documented in this encounter Results * US OB TRANSVAGINAL (12/10/2023 1:24 PM EST) Anatomical Region Laterality Modality Other 12/10/2023 1:24 PM EST Narrative 12/10/2023 1:27 [place] [address] Ultrasound Report Signed Patient: JOHANNA VELASQUEZ MR#: [id number] : 1990 Acct:[id number] Age/Sex: 33 / F ADM Date: 12/10/23 Loc: US Attending Dr: Lia Tejada D.O. Ordering Physician: Lia Tejada D.O. Date of Service: 12/10/23 Procedure(s): US OB transvaginal Accession Number(s): [id number] cc: Lia Tejada D.O.; Physician,Non-Staff [place]ee [place] [address] Patient Name: JOHANNA VELASQUEZ MRN: [id number] date: 1990 Sex: F Assigned Patient Location: US Current Patient Location: US Accession/Order Number: [id number] Exam Date: 12/10/2023 12:17 Report Date: 12/10/2023 [...] Signed By: 12/10/23 1327 DD/ 23 TD/TT: Data Analytics Developer: Procedure Note Radiology, Radiologist, MD - 12/10/2023 [place] [address] Ultrasound Report Signed Patient: JOHANNA VELASQUEZMR#: [id number] : 1990Acct:[id number] Age/Sex: 33 / FADM Date: 12/10/23 Loc: US Attending Dr: Lia Tejada D.O. Ordering Physician: Lia Tejada D.O. Date of Service: 12/10/23 Procedure(s): US OB transvaginal Accession Number(s): [id number] cc: Lia Tejada D.O.; Physician,Non-Staff Estee The [place] [phone] Patient Name: JOHANNA VELASQUEZ MRN: [facility]:[id number] date: 1990 Sex: F Assigned Patient Location: US Current Patient Location: US Accession/Order Number: [id number] Exam Date: 12/10/2023 12:17 Report Date: 12/10/2023 [...] 13:24 Dictated By: Shay Bey M.D. Signed By:12/10/23 1327 DD/ 23 TD/TT: Data Analytics Developer: us Lia Starro DO [facility] Final Result documented in this encounter Visit Diagnoses Not on filedocumented in this encounter
--- OUTSIDE RECORDS SUMMARY | 2025-07-07 06:08 | XMS_ITS | Encounter Summary ---
Author Organization [facility] Address [address] [place] [address] Care Team Providers Care Full Service Supervisor Name Role Phone Unavailable Primary Care Provider Unavailabl e Encounter Details Date Type Department Care Team (Late st Contact Info) Description 06/25/2024 Abstract [facility] [address] [place] [address] [place] [phone] Arvind Tejada DO [address] [place] [address] Taina Hinojosa, [facility] Social History Tobacco Use Types Packs/Day [...] 11:50 AM EDT Office Visit LILIA MCHUGH [address] [place] [address] [place] [phone] Arvind Tejada DO [address] [place], [place] [phone] documented as of this encounter Visit Diagnoses Not on filedocumented in this encounter
--- OUTSIDE RECORDS SUMMARY | 2025-07-07 06:08 | XMS_ITS | Encounter Summary ---
Author Organization [facility] Address [address] [place] [address] Care Team Providers Care Roving Technician Name Role Phone Unavailable Primary Care Provider Unavailabl e Encounter Details Date Type Department Care Team (Late st Contact Info) Description 06/06/2024 Clinisync Result Encounter [facility] External Department Unsolicited Lia Tejada, DO [address] [place] [address] Social History Tobacco Use Types Packs/Day Years [...] Office Visit [facility] [address] [place] [phone] Lia Tejada DO [address] [place] [address] documented as of this encounter Procedures Procedure Name Priority Date/Time Associated Diagnosis Comments US OB BPP W NON-STRESS 06/06/2024 6:30 AM EDT documented in this encounter Results * US OB BPP W NON-STRESS (06/06/2024 6:30 AM EDT) Anatomical Region Laterality Modality Other 06/06/2024 6:30 AM EDT Narrative 06/06/2024 6:33 AM EDT [address] [address] Ultrasound Report Signed Patient: JOHANNA VELASQUEZ MR#: [id number] : 1990 Acct:[id number] Age/Sex: 34 / F ADM Date: 06/04/24 Loc: US Attending Dr: Lia Tejada D.O. Ordering Physician: Lia Tejada D.O. Date of Service: 06/04/24 Procedure(s): US OB BPP w non-stress Accession Number(s): [id number] cc: Lia Tejada D.O.; Physician,Non-Staff [place] [place] [id number] Patient Name: JOHANNA VELASQUEZ MRN: [id number] date: 1990 Sex: F Assigned Patient Location: US Current Patient Location: Accession/Order Number: [id number] Exam Date: 06/04/2024 09:00 Report Date: 06/06/2024 [...] M.D. Signed By: 06/06/24632 DD/ 9 TD/TT: Consumer Marketing Specialist: Procedure Note Radiology, Radiologist, - 06/06/2024 [facility] [place] [id number] Ultrasound Report Signed Patient: JOHANNA VELASQUEZMR#: [id number] : 1990Acct:[id number] Age/Sex: 34 / FADM Date: 06/04/24 Loc: US Attending Dr: Lia Tejada D.O. Ordering Physician: Lia Tejada D.O. Date of Service: 06/04/24 Procedure(s): US OB BPP w non-stress Accession Number(s): [id number] cc: Lia Tejada D.O.; Physician,Non-Staff MLilian [facility] [place] [id number] Patient Name: JOHANNA VELASQUEZ MRN: [id number] date: 1990 Sex: F Assigned Patient Location: US Current Patient Location: Accession/Order Number: [id number] Exam Date: 06/04/2024 09:00 Report Date: 06/06/2024 [...] 06:30 Dictated By: Shay Bey M.D. Signed By:06/06/24632 DD/ 9 TD/TT: Consumer Marketing Specialist: us Lia Tejada DO [facility] Final Result documented in this encounter Visit Diagnoses Not on filedocumented in this encounter
--- OUTSIDE RECORDS SUMMARY | 2025-07-07 06:08 | XMS_ITS | Encounter Summary ---
Author Organization [facility] Address [address] [place] [address] Care Team Providers Care Information Architect Name Role Phone Unavailable Primary Care Provider Unavailabl e Encounter Details Date Type Department Care Team (Late st Contact Info) Description 06/23/2024 Abstract [facility] [address] [place] [address] [place] [phone] Arvind Tejada DO [address] [place] [address] Taina Hinojosa, [facility]11 Social History Tobacco Use Types Packs/Day Years [...] 11:50 AM EDT Office Visit LILIA MCHUGH [address] [place] [address] [place] [phone] Arvind Tejada DO [address] [place], [place] [phone] documented as of this encounter Visit Diagnoses Not on filedocumented in this encounter
--- OUTSIDE RECORDS SUMMARY | 2025-07-07 06:08 | XMS_ITS | Encounter Summary ---
Author Organization [facility] Address [address] [place] [address] Care Team Providers Care Mortgage Loan Specialist Name Role Phone Unavailable Primary Care Provider Unavailabl e Encounter Details Date Type Department Care Team (Late st Contact Info) Description 04/27/2025 Abstract [facility] Pablo [facility] [address] [place] [phone] Arvind Tejada DO [address] [place] [address] Taina Hinojosa, [facility]11 Social History Tobacco Use Types [...] 11:50 AM EDT Office Visit LILIA MCHUGH [address] [place] [address] [place] [phone] Arvind Tejada DO [address] [place], [place] [phone] documented as of this encounter Visit Diagnoses Not on filedocumented in this encounter
--- OUTSIDE RECORDS SUMMARY | 2025-07-07 06:09 | XMS_ITS | Encounter Summary ---
Author Organization [facility] Address [address] [place] [address] Care Team Providers Care Supervisor Electron Tube Processing Name Role Phone Unavailable Primary Care Provider Unavailabl e Encounter Details Date Type Department Care Team (Late st Contact Info) Description 06/13/2024 Abstract [facility] [address] [place] [address] [place] [phone] Lizbeth Lomas LPN [address] [place] [address] Social History Tobacco Use Types Packs/Day Years [...] EDT Office Visit [facility] Ashish [facility] [address] [place] [address] [place] [address] Arvind Tejada DO [address] [place], [place] [phone] documented as of this encounter Visit Diagnoses Not on filedocumented in this encounter
--- OUTSIDE RECORDS SUMMARY | 2025-07-07 06:09 | XMS_ITS | CCD ---
Author Organization [facility] Care Team Providers Care Forestry Extension Specialist Name Role Phone Killian, Omid Sandadi Unavailable Unavailabl e MOROCCO, VANESSA Unavailable Unavailable KILLIAN, OMID SANDADI Unavailable Unavailabl e SYSTEM, PROVIDER NOT IN Unavailable Unavaila ble TRACY, NOWWAR GHAZI YASIN Unavailable Unav ailable LOGAN ZAMAN Unavailable Unavailabl e KILLIAN, OMID SANDADI Unavailable Unavailabl e Killian, Omid Sandadi Primary Care Provider [phone] KILLIAN, OMID SANDADI Primary Care Unavailabl e ALICIA HUDSON Attending Unavailable MD Radha Tomas Attending Provider KAI FERGUSON Attending Unavailable Unavailable Primary Care [...] if needed 06/28/2024 08/16/2024 Discontinued (Other) levonorgestrel 0.554691 mg/hr intrauterine system (12 sources) Progestin, Progestin-containing [...] before meals. 30 tablet 06/01/2025 06/01/2025 Discontinued Iytkzpqs-Lph-Os-FA ( 1 + IRON PO) (3 sources) End: 08-16-2024 Eezntytl-Zbv-Va-FA ( 1 + IRON PO) Take by [...] Patient tolerance: tolerated well, no immediate complications [facility] HCG ( test) Ql (U)o n 06-01-2025 Interpretation and review of laboratory results Normal [facility] Preg Test, Ur Negative Negative [facility] Lacho 06-01-2025 L - -------- Specimen: [id number] Received: 06/05/25 Status: WILBER Anders Num: [id number] Spec Type: Surgical Subm Dr: Arvind Tejada Tissues: A Endometrium - Biopsy (ENDOMETRIAL BX) Procedures: DEVANG/Kalia Isabel/Mihir L4 -------- Age/ Patient Sex Location Account Attending Physician -------- Sabrina Velasquez 35/F LABEL [id number] Arvind Tejada -------- SPEC NUM: [id number] RECD: 06/05/25 STATUS: WILBER CHAGO NUM: [id number] MELISSA: 06/01/25- SUBM DR: Arvind Tejada ENTERED: 06/05/25 [facility] DR: Ashish,Lab SPEC TYPE: Surgical DEPT: SHREYA GUIDO ENTERED BY: [id number] RECV BY: [id number] ORDERED: HE/2, Gross/Micro L4 ORDERED: HE/2, Gross/Micro [...] submitted in a single cassette. (1, ns, [id number] A) Microscopic Description Microscopic examination is performed. -------- Specimen: [id number] Received: 06/05/25 Status: [place] Anders Num: [id number] Spec Type: Surgical Subm Dr: Arvind Tejada Tissues: A Endometrium - Biopsy (ENDOMETRIAL BX) Procedures: HE/2, Gross/Micro L4 -------- Patient: Sabrina Velasquez [id number] (Continued) -------- Specimen: [id number] Received: 06/05/25 (Continued) Signed (signature on file) Andrae Flores MD 06/06/25 1206 -------- Specimen: [id number] Received: 06/05/25 Status: WILBER Anders Num: [id number] Spec Type: Surgical Subm Dr: Arvind Tejada Tissues: A Endometrium - Biopsy (ENDOMETRIAL BX) Procedures: Kalia STEIN/Mihir L4 -------- Patient: Sabrina Velasquez [id number] (Continued) -------- Specimen: [id number] Received: 06/05/25 (Continued) CPT Codes 43609 -------- -------- Specimen: [id number] Received: 06/05/25 Status: WILBER Anders Num: [id number] Spec Type: Surgical Subm Dr: Arvind Tejada Tissues: A Endometrium - Biopsy (ENDOMETRIAL BX) Procedures: Kalia STEIN/Mihir L4 -------- Patient: Sabrina Velasquez [id number] (Continued) -------- Signed (signature on file) Andrae Flores MD 06/06/[address] [facility] Lacho 04-27-2025 L - -------- Specimen: [id number] Received: 04/28/25 Status: [place]andy Anders Num: [id number] Spec Type: Surgical Subm Dr: Arvind Tejada Tissues: A Fallopian Tube - Sterilization (BILATERAL FALLOPIAN TUBES) Procedures: Kalia STEIN/Mihir L2 -------- Age/ Patient Sex Location Account Attending Physician -------- Sabrina Velasquez 35/F LABELL [id number] Arvind Tejada -------- SPEC NUM: [id number] RECD: 04/28/25 STATUS: WILBER ANDERS NUM: [id number] MELISSA: 04/27/[address] [facility] [address]: Arvind Tejada ENTERED: 04/28/25 [facility] DR: Ashish,Lab SPEC TYPE: Surgical DEPT: SHREYA GUIDO ENTERED BY: [id number] RECV BY: [id number] ORDERED: HE/2, Gross/Micro L2 ORDERED: HE/2, Gross/Micro [...] A1 Entirety of trisected fimbriated end and personnel representative cross-sections from shorter tube A2 Entirety of trisected fimbriated end and personnel representative cross-sections from longer tube (2, , [id number] A)JG -------- Specimen: [id number] Received: 04/28/25 Status: WILBER Chago Num: [id number] Spec Type: Surgical Subm Dr: Arvind Tejada Tissues: A Fallopian Tube - Sterilization (BILATERAL FALLOPIAN TUBES) Procedures: HE/2, Gross/Micro L2 -------- Patient: SherSabrina E [id number] (Continued) -------- Specimen: [id number] Received: 04/28/25 (Continued) Signed (signature on file) Julia Sanchez MD 05/01/25 1443 -------- Specimen: [id number] Received: 04/28/25 Status: WILBER Anders Num: [id number] Spec Type: Surgical Subm Dr: Arvind Tejada Tissues: A Fallopian Tube - Sterilization (BILATERAL FALLOPIAN TUBES) Procedures: HE/2, Kalia/Mihir L2 -------- Patient: Sabrina Velasquez [id number] (Continued) -------- Specimen: [id number] Received: 04/28/25 (Continued) Microscopic Description Microscopic examination is performed CPT Codes 51220 -------- -------- Specimen: [id number] Received: 04/28/25 Status: WILBER Anders Num: [id number] Spec Type: Surgical Subm Dr: Arvind Tejada Tissues: A Fallopian Tube - Sterilization (BILATERAL FALLOPIAN TUBES) Procedures: HE/2, Gross/Micro L2 -------- Patient: Sabrina Velasquez [id number] (Continued) -------- Signed (signature on file) Jaquan-Andrea Sanchez MD 05/01/25 1443 Normal [facility] ALL CBC WITH AUTO DIFFon BASOPHILS ABSOLUTE AUTO 0 [facility] Basophils/100 WBC (Bld) 0.6 % 0.2 - 2.0 % [facility] Eosinophils/100 WBC (Bld) 1.6 % 0.9 - 7.0 % [facility] Erythrocyte distribution width (RBC) [Ratio] 16.1 % High 11.0 - 15.0 % [facility] Hematocrit (Bld) [Volume fraction] 36.2 % 36.0 - 48.0 % [facility] Hemoglobin (Bld) [Mass/Vol] 11.6 g/dL Low 12.0 - 16.0 g/dL [facility] IMMATURE GRANULOCYTES ABS AUTO 0.01 [facility] Immature granulocytes/100 WBC (Bld) 0.2 % 0.0 - 0.5 % [facility] Interpretation and review of laboratory results Abnormal [facility] LYMPHOCYTES ABSOLUTE AUTO 1.7 [facility] Lymphocytes/100 WBC (Bld) 33.3 % 20.5 - 60.0 % [facility] MCH (RBC) [Entitic mass] 24.9 pg Low 26.7 - 34.0 pg [facility] MCHC (RBC) [Mass/Vol] 32 g/dL 29.9 - 35.2 g/dL [facility] MCV (RBC) [Entitic vol] 77.8 fL Low 81.0 - 99.0 fL [facility]OCYTES [facility]OL[facility] Monocytes/100 WBC (Bld) 9.5 % 1.7 - 12.0 % [facility] NEUTROPHILS ABSOLUTE AUTO 2.8 [facility] Neutrophils/100 WBC (Bld) 54.8 % 43.0 - 75.0 % [facility] Platelet mean volume (Bld) [Entitic vol] 11.9 fL 9.5 - 13.5 fL [facility] EO # 0.[address] [facility] PLT [address] [facility] RBC 4.[address] [facility] WBC 5.1 [facility] XR CHEST 2Von 04-26-2025 [place] [address] XRay Report Signed Patient: SABRINA VELASQUEZ MR#: [id number] : 1990 Acct:[id number] Age/Sex: 35 / F ADM Date: 04/26/25 [facility]: Arvind Tejada D.O. Ordering Physician: Arvind Tejada D.O. Date of Service: 04/26/25 Procedure(s): XR chest 2V Accession Number(s): [id number] cc: Arvind Tejada D.O.; Physician,Non-Staff MLilian [place] [address] Patient Name: SABRINA VELASQUEZ MRN: [facility]:[id number] date: 1990 Sex: F Assigned Patient Location: [facility] Current Patient Location: [facility] Accession/Order Number: [id number] Exam Date: 04/26/2025 13:15 Report Date: 04/26/2025 [...] Andrade M.D. 04/26/2025 1:16 PM Dictation Location: [place] [address] Electronically authenticated by: [id number] Y Date: 04/26/2025 13:16 Dictated By: Shari Andrade M.D. Signed By: 04/26/25 1319 DD/ 1316 TD/TT: Battery Technician: [facility] Radiology, Radiologist, MD - 04/26/2025 [place] [address] XRay Report Signed Patient: SABRINA VELASQUEZ MR#: [id number] : 1990 Acct:[id number] Age/Sex: 35 / F ADM Date: 04/26/25 [facility] Att[facility] Dr: Arvind Tejada D.O. Ordering Physician: Arvind Tejada D.O. Date of Service: 04/26/25 Procedure(s): XR chest 2V Accession Number(s): [id number] cc: Arvind Tejada D.O.; Physician,Non-Staff [place] [address] Patient Name: SABRINA VELASQUEZ MRN: [facility]:[id number] date: 1990 Sex: F Assigned Patient Location: [facility] Current Patient Location: [facility] Accession/Order Number: [id number] Exam Date: 04/26/2025 13:15 Report Date: 04/26/2025 [...] Andrade M.D. 04/26/2025 1:16 PM Dictation Location: [place] [address] Electronically authenticated by: [id number] Y Date: 04/26/2025 13:16 Dictated By: Shari Andrade M.D. Signed By: 04/26/25 1319 DD/ 15 TD/TT: Battery Technician: [facility] Scour Prevention Radiology Study observation (narrative) [facility] XR CHEST [facility]Or[facility]: [facility] on 04-26-2025 [facility] Healthcare Work Phone: HCG ( test) Ql (U)o n 03-30-2025 Interpretation and review of laboratory results Normal [facility] Preg Test, Ur Negative Negative [facility] US PELVIS TRANSVAGINALon US PELVIS TRANSVAGINAL EXAM: [...] report is generated using voice recognition reporting ([employer]). On occasion, Smart Device Mediacribe erroneously drops words from the report or [...] UA Negative Negative - 4(70) +++ mg/dL [facility] Blood, UA Positive Negative - 50 Sunny/mcL [facility] Comment on above: small Clarity, UA Clear [facility] Color, UA Yellow [facility] Glucose, UA Negative Negative - 2000(110) ++++ mg/dL [facility] Interpretation and review of laboratory results Abnormal [facility] Ketones, UA Positive Negative - 160(16) ++++ mg/dL [facility] Comment on above: trace Leukocytes, UA Negative Negative - 500+++ Donis/mcL [facility] Nitrite, UA Negative Negative - Positive [facility] pH, UA 5.5 5 - 9 [facility] Protein, UA Negative Negative - 1999(20) ++++ mg/dL [facility] Spec Grav, UA 1.03 1 - 1.03 [facility] Urobilinogen, UA 1.0 0.2 - 12 mg/dL [facility] Urinalysis macro (dipstick) panel (U)on 03-02-2025 Bilirubin, UA Negative Negative - 4(70) +++ mg/dL [facility] Blood, UA Negative Negative - 50 Sunny/mcL [facility] Clarity, UA Clear [facility] Color, UA Yellow [facility] Glucose, UA Negative Negative - 1999(110) ++++ mg/dL [facility] Interpretation and review of laboratory results Normal [facility] Ketones, UA Positive Negative - 160(16) ++++ mg/dL [facility] Comment on above: trace Leukocytes, UA Negative Negative - 500+++ Donis/mcL [facility] Nitrite, UA Negative Negative - Positive [facility] pH, UA 5.5 5 - 9 [facility] Protein, UA Negative Negative - 1999(20) ++++ mg/dL [facility] Spec Grav, UA 1.025 1 - 1.03 [facility] Urobilinogen, UA 1.0 0.2 - 12 mg/dL [facility] HCG ( test) Ql (U)o n 08-24-2024 Interpretation and review of laboratory results Normal [facility] Preg Test, Ur Negative [facility] IUD Insertionon 08-16-2024 Shari Bertrand LPN 08/24/2024 12:25 PM IUD Insertion Date/Time: 08/16/2024 1:40 PM Performed by: Arvind Tejada DO Authorized by: Arvind Tejada DO Consent: Consent obtained: Written Consent given by: Patient Procedure risks and benefits discussed: yes Patient questions answered: yes Patient agrees, verbalizes understanding, and wants to proceed: yes Educational handouts given: yes Instructions and paperwork completed: yes Dennis protocol: Patient states understanding of procedure being [...] up after next period: no [facility] Healthcare CBC AND AUTO DIFFon 07-05-20 24 ABSOLUTE BASOPHIL 0.0 X10E9/L Normal 0.0-0.2 [facility] Comment on above: Performed By: #### C BCA, CMP #### [facility] ([id number]) [address] [place] [address]87[address] ABSOLUTE NEUTROPHIL 5.8 X10E9/L Normal 1.5-6.6 [facility] Comment on above: Performed By: #### C BCA, CMP #### [facility] ([id number]) [address] [place] [address] 93742 Basophils/100 WBC (Bld) 0.3 % Normal [facility] Comment on above: Performed By: #### C BCA, CMP #### [facility] ([id number]) [address] [place] [address] 74549 Eosinophils (Bld) [#/Vol] 0.1 10*3/uL Normal 0.0-0.4 [facility] Comment on above: Performed By: #### C BCA, CMP #### [facility] ([id number]) [address] [place] [address] 51163 Eosinophils/100 WBC (Bld) 1.1 % Normal [facility] Comment on above: Performed By: #### C BCA, CMP #### [facility] ([id number]) [address] [place] [address] 05083 Erythrocyte distribution width (RBC) [Ratio] 13.0 % Normal 11.5-15.0 [facility] Comment on above: Performed By: #### C MANOJ, CMP #### [facility] ([id number]) [address] [place] [address] 96944 Hematocrit (Bld) [Volume fraction] 25.9 % Low 35-47 [facility] Comment on above: Performed By: #### C MANOJ, CMP #### [facility] ([id number]) [address] [place] [address] 25486 Hemoglobin (Bld) [Mass/Vol] 9.0 g/dL Low 11.7-15.5 [facility] Comment on above: Performed By: #### C MANOJ, CMP #### [facility] ([id number]) [address] [place] [address] 71036 Lymphocytes (Bld) [#/Vol] 1.8 10*3/uL Normal 1.0-3.5 [facility] Comment on above: Performed By: #### C MANOJ, CMP #### [facility] ([id number]) [address] [place] [address] 33975 Lymphocytes/100 WBC (Bld) 21.5 % Normal [facility] Comment on above: Performed By: #### C MANOJ, CMP #### [facility] ([id number]) [address] [place] [address] 96654 MCH (RBC) [Entitic mass] 31.4 pg Normal 27-34 [facility] Comment on above: Performed By: #### C BCA, CMP #### [facility] ([id number]) [address] [place] [address] 88728 MCHC (RBC) [Mass/Vol] 34.7 g/dL Normal 32-36 [facility] Comment on above: Performed By: #### C BCA, CMP #### [facility] ([id number]) [address] [place] [address] 28557 MCV (RBC) [Entitic vol] 90 fL Normal 80-100 [facility] Comment on above: Performed By: #### C BCA, CMP #### [facility] ([id number]) [address] [place] [address] 37999 Monocytes (Bld) [#/Vol] 0.5 10*3/uL Normal 0-0.9 [facility] Comment on above: Performed By: #### C BCA, CMP #### [facility] ([id number]) [address] [place] [address] 94091 Monocytes/100 WBC (Bld) 6.5 % Normal [facility] Comment on above: Performed By: #### C MANOJ, CMP #### [facility] ([id number]) [address] [place] [address] 34635 Neutrophils/100 WBC (Bld) 70.6 % Normal [facility] Comment on above: Performed By: #### C BCA, CMP #### [facility] ([id number]) [address] [place] [address] 97906 Platelet mean volume (Bld) [Entitic vol] 8.9 fL Normal 7-12 [facility] Comment on above: Performed By: #### C BCA, CMP #### [facility] ([id number]) [address] [place] [address] 03440 Platelets (Bld) [#/Vol] 239 10*3/uL Normal 150-450 [facility] Comment on above: Performed By: #### C BCA, CMP #### [facility] ([id number]) [address] [place] [address] 52875 RBC COUNT 2.86 X10E12/L Low 3.80-5.20 [facility] Comment on above: Performed By: #### C BCA, CMP #### [facility] ([id number]) [address] [place] [address] 95285 WBC (Bld) [#/Vol] 8.3 10*3/uL Normal 4.0-11.0 [facility] Comment on above: Performed By: #### C BCA, CMP #### [facility] ([id number]) [address] [place] [address] 54760 COMPREHENSIVE METABOLIC PANE Lacho 07-05-2024 Albumin [Mass/Vol] 2.6 g/dL Low 3.2-5.3 [facility] Comment on above: Performed By: #### C BCA, CMP #### [facility] ([id number]) [address] [place] [address] 99586 ALP [Catalytic activity/Vol] 84 U/L Normal 39-130 [facility] Comment on above: Performed By: #### C BCA, CMP #### [facility] ([id number]) [address] [place] [address] 37129 ALT [Catalytic activity/Vol] 16 U/L Normal 0-31 [facility] Comment on above: Performed By: #### C BCA, CMP #### [facility] ([id number]) [address] [place] [address] 43221 Anion gap [Moles/Vol] 6 mmol/L Normal 5-15 [facility] Comment on above: Performed By: #### C BCA, CMP #### [facility] ([id number]) [address] [place] [address] 98178 AST [Catalytic activity/Vol] 14 U/L Normal 0-41 [facility] Comment on above: Performed By: #### C BCA, CMP #### [facility] ([id number]) [address] [place] [address] 32228 Bilirubin [Mass/Vol] 0.4 mg/dL Normal 0.3-1.2 [facility] Comment on above: Performed By: #### C BCA, CMP #### [facility] ([id number]) [address] [place] [address] 41978 Calcium [Mass/Vol] 7.8 mg/dL Low 8.5-10.5 [facility] Comment on above: Performed By: #### C BCA, CMP #### [facility] ([id number]) [address] [place] [address] 44596 Chloride [Moles/Vol] 110 mmol/L High 98-109 [facility] Comment on above: Performed By: #### C BCA, CMP #### [facility] ([id number]) [address] [place] [address] 89017 CO2 [Moles/Vol] 23 mmol/L Normal 22-32 [facility] Comment on above: Performed By: #### C BCA, CMP #### [facility] ([id number]) [address] [place] [address] 69685 Creatinine [Mass/Vol] 0.50 mg/dL Normal 0.40-1.00 [facility] Comment on above: Result Comment: METH OD TRACEABLE TO IDMS STANDARD Performed By: #### C BCA, CMP #### [facility] ([id number]) [address] [place] [address] 73124 eGFR (CKD-EPI) NON-RACE DEPENDENT >90 Normal >59 [facility] Comment on above: Result Comment: Reported eGFR is based on the CKD-EPI 2020 equation that does not use a race coefficient. Performed By: #### C BCA, CMP #### [facility] ([id number]) [address] [place] [address] 14637 Glucose [Mass/Vol] 93 mg/dL Normal 65-99 [facility] Comment on above: Performed By: #### C BCA, CMP #### [facility] ([id number]) [address] [place] [address] 40621 Potassium [Moles/Vol] 3.7 mmol/L Normal 3.5-5.0 [facility] Comment on above: Performed By: #### C BCA, CMP #### [facility] ([id number]) [address] [place] [address] 43631 Protein [Mass/Vol] 5.9 g/dL Low 6.0-8.0 [facility] Comment on above: Performed By: #### C BCA, CMP #### [facility] ([id number]) [address] [place] [address] 26302 Sodium [Moles/Vol] 139 mmol/L Normal 134-146 [facility] Comment on above: Performed By: #### C BCA, CMP #### [facility] ([id number]) [address] [place] [address] 88804 Urea nitrogen [Mass/Vol] 15 mg/dL Normal 5-23 [facility] Comment on above: Performed By: #### C BCA, CMP #### [facility] ([id number]) [address] [place] [address] 38114 Lacho 06-25-2024 L Specimen: [id number] Received: 06/27/24 Status: WILBER Anders Num: [id number] Spec Type: Surgical Subm Dr: Radha Tomas MD Tissues: A Placenta - 3rd Trimester (Greater than 28 weeks) (PLACENTA) Procedures: HE/3, Gross/Micro L5 Age/ Patient Sex Location Account Attending Physician Sabrina Velasquez 34/F LABELL [id number] Radha Tomas MD SPEC NUM: [id number] RECD: 06/27/24 STATUS: WILBER ANDERS NUM: [id number] MELISSA: 06/25/[address]: Radha Tomas MD ENTERED: 06/27/24 [facility] DR: Digna Hinojosa SPEC TYPE: Surgical DEPT: [...] cord, has a trimmed weight -------- Specimen: [id number] Received: 06/27/24 Status: WILBER Chago Num: [id number] Spec Type: Surgical Subm Dr: Radha Tomas MD Tissues: A Placenta - 3rd Trimester (Greater than 28 weeks) (PLACENTA) Procedures: , Gross/Micro L5 -------- Patient: Sabrina Velasquez [id number] (Continued) -------- Specimen: [id number] Received: 06/27/24 (Continued) Gross Description (Continued) Signed (signature on file) Flavia Nicholson MD 06/30/241711 -------- Specimen: [id number] Received: 06/27/24 Status: WILBER Anders Num: [id number] Spec Type: Surgical Subm Dr: Radha Tomas MD Tissues: A Placenta - 3rd Trimester (Greater than 28 weeks) (PLACENTA) Procedures: HE/3, Gross/Micro L5 -------- Patient: Sabrina Velasquez [id number] (Continued) -------- Specimen: [id number] Received: 06/27/24 (Continued) Gross Description (Continued) of 322 grams. Summary of sections: A1: umbilical cord at end and membrane roll including possible site of rupture A2: umbilical cord at placental end and parenchyma adjacent to cord insertion site A3: random mid-zonal section CPT Codes 09428 -------- -------- Specimen: [id number] Received: 06/27/24 Status: WILBER Anders Num: [id number] Spec Type: Surgical Subm Dr: Radha Tomas MD Tissues: A Placenta - 3rd Trimester (Greater than 28 weeks) (PLACENTA) Procedures: HE/3, Gross/Micro L5 -------- Patient: Sabrina Velasquez [id number] (Continued) -------- Signed (signature on file) Flavia Nicholson MD 06/30/24 1712 Normal [facility] VERIFICATIONon 020 ABO and Rh group Nom (Bld) A Negative [facility] ABO and Rh group Nom (Bld) [...] [Mass/Vol] 71 mg/dL 65 - 99 mg/dL [facility] HCO3 [Moles/Vol] 28 mmol/L 21 - [...] Center RBC (Bld) [#/Vol] 4.47 10*6/uL [facility] WBC (Bld) [#/Vol] 6.67 10*3/uL [facility] Otheron 07-14-2020 Extra Tube Hold for add-ons. [facility] Comment on above: Auto resulted. Interpretation and review of laboratory results Abnormal [facility] Type and Screenon 07-14-2020 ABO and Rh group Nom (Bld) A Negative [facility] Blood group antibody screen Ql Negative [facility] Specimen Expires 07/17/2020 23:59 EST [facility] URINALYSISon 07-14-2020 Bacteria Auto Ql (U) None Seen None Seen /hpf [facility] Bilirubin Ql (U) Negative Negative [facility] th Clarity Refractometry automated (U) Clear Clear [facility] Color (U) Yellow Colorless, Yellow [facility] Epithelial cells.squamous Auto (Urine sed) [#/Area] 5 High [facility] Glucose Auto test strip (U) [Mass/Vol] Negative Negative mg/dL [facility] Hemoglobin Auto test strip Ql (U) Moderate Abnormal Negative [facility] Interpretation and review of laboratory results Abnormal [facility] Ketones (U) [Mass/Vol] [...] present they are quantified by microscopic examination. [facility] OB 1ST TRIMESTER WITH TRA NSVAGINAL [...] bleeding, spontaneous of is believed most likely. [facility] Workstation ID: [id number] Dictated by: SHAY FERNANDEZ on [facility] Jul 14, 2020 12:00:51 PM EDT Transcribed by: PREETI VILLALTA on [facility] Jul 14, 2020 12:07:08 PM EDT Finalized by: SHAY FERNANDEZ on [facility] Jul 14, 2020 12:57:[address] [facility] Comment on above: Order Comment: Injur y/Trauma [...] bleeding, spontaneous of is believed most likely. DPStacia/Easelmaria l Workstation ID: [id number] [facility] Interface, Rad In Gravitonq - 07/14/2020 1:00 PM EDT EXAMINATION: ULTRASOUND [...] bleeding, spontaneous of is believed most likely. [facility] Workstation ID: [id number] [facility] [...] [Moles/Vol] 7.0 mmol/L Normal 6.0-18.0 [facility] Comment on above: Performed By: #### 2 4321-2, 56686-9, 60554-0n6, 1988-03 ####[facility] [address], [place] Calcium [Mass/Vol] 8.6 mg/dL Low 8.9-10.3 [facility] Comment on above: Performed By: #### 2 4321-2, 36812-9, 35991-1p7, 1988-03 ####[facility] [address], [place] Chloride [Moles/Vol] 107 mmol/L Normal 98-107 [facility] Comment on above: Performed By: #### 2 4321-2, 48908-8, 57037-7h3, 1988-03 ####[facility] [address], [place] CO2 [Moles/Vol] 24 mmol/L Normal 22-32 [facility] Comment on above: Performed By: #### 2 4321-2, 22173-1, 42982-9e4, 1988-03 ####[facility] [address], [place] Creatinine [Mass/Vol] 0.67 mg/dL Normal 0.60-1.30 [facility] Comment on above: Performed By: #### 2 4321-2, 96480-2, 78014-0t1, 1988-03 ####[facility] [address], [place] Glucose [Mass/Vol] 105 mg/dL High 70-99 [facility] Comment on above: Result Comment: U pdated ADA Reference Range A normal fasting glucose concentration is less than 100 mg/dL. An impaired fasting glucose concentration is 100-125 mg/dL. A provisional diagnosis of diabetes mellitus can be made when a fasting glucose concentration is greater than 125 mg/dL. Performed By: #### 2 4321-2, 18302-8, 32419-2j8, 1988-03 ####[facility] [address], [place] Potassium [Moles/Vol] 4.1 mmol/L Normal 3.6-5.1 [facility] Comment on above: Performed By: #### 2 4321-2, 84175-6, 67425-4g1, 1988-03 ####[facility] [address], [place] Sodium [Moles/Vol] 138 mmol/L Normal 136-145 [facility] Comment on above: Performed By: #### 2 4321-2, 37943-8, 81242-7s4, 1988-03 ####[facility] [address], [place] Urea nitrogen (BldV) [Mass/Vol] 8 mg/dL Normal 8-20 [facility] Comment on above: Performed By: #### 2 4321-2, 96014-9, 87415-2n8, 1988-03 ####[facility] [address], [place] C-Reactive Proteinon 019 CRP [Mass/Vol] 3.2 mg/dL High <1.0 [facility] Comment on above: Performed By: #### 2 4321-2, 38081-5, 97259-9h5, 1988-5 ####[facility] [address], [place] CBCon 03-01-2019 Erythrocyte distribution width (RBC) [Entitic vol] 14.3 % Normal 11.0-14.8 [facility] Comment on above: Performed By: #### 2 4317-0 ####[facility] [address], [place] Hematocrit (Bld) [Volume fraction] 37.5 % Normal 35.0-45.0 [facility] Comment on above: Performed By: #### 2 4317-0 ####[place] [address] [place], [place] Hemoglobin (Bld) [Mass/Vol] 12.5 g/dL Normal 12.0-16.0 [facility] Comment on above: Performed By: #### 2 4317-0 ####[place] [address], [place] MCH (RBC) [Entitic mass] 28.1 Picograms Normal 27.0-34.0 [facility] Comment on above: Performed By: #### 2 4317-0 ####[place] [address], [place] MCHC (RBC) [Mass/Vol] 33.3 g/dL Normal 32.0-36.0 [facility] Comment on above: Performed By: #### 2 4317-0 ####[facility] [address], [place] MCV (RBC) [Entitic vol] 84.6 fL Normal 80.0-97.0 [facility] Comment on above: Performed By: #### 2 4317-0 ####[facility] [address], [place] Platelet mean volume (Bld) [Entitic vol] 10.5 fL Normal 6.2-12.1 [facility] Comment on above: Performed By: #### 2 4317-0 ####[facility] [address], [place] Platelets (Bld) [#/Vol] 231 thou/mcL Normal 142-424 [facility] Comment on above: Performed By: #### 2 4317-0 ####[facility] [address], [place] RBC (Bld) [#/Vol] 4.43 million/mcL Normal 3.80-5.10 [facility] Comment on above: Performed By: #### 2 4317-0 ####[facility] [address], [place] WBC (Bld) [#/Vol] 12.7 thou/mcL High 4.6-10.2 [facility] Comment on above: Performed By: #### 2 4317-0 ####[facility] [address], [place] GFRaaon 03-01-2019 GFR/1.73 sq M predicted among blacks MDRD (S/P/Bld) [Vol rate/Area] mL/min/{1.73_m2} Normal [facility] Comment on above: Result Comment: The MDRD equation has not been validated for those over 70 years, women, patients with serious co-morbid conditions, or with extremes of body size, muscle mass of nutritional status. Performed By: #### 2 4321-2, 93400-5, 13386-8y6, 1988-03 ####[facility] [address], [place] GFRbbon 03-01-2019 GFR/1.73 sq M predicted among non-blacks MDRD (S/P/Bld) [Vol rate/Area] mL/min/{1.73_m2} Normal [facility] Comment on above: Performed By: #### 2 4321-2, 62769-6, 05270-8j8, 1988-03 ####[facility] [address], [place] Glucose POCT (Uploaded)on Glucose [Mass/Vol] 87 mg/dL Normal 70-99 [facility] Comment on above: Result Comment: Nadia tment ranges and critical values established by Patient Care Services. All follow-up actions were taken by Patient Care Services. Performed By: #### 2 430-8 ####[facility] Glucose [Mass/Vol] 93 mg/dL Normal 70-99 [facility] Comment on above: Result Comment: Nadia tment ranges and critical values established by Patient Care Services. All follow-up actions were taken by Patient Care Services. Performed By: #### 2 430-8 ####[facility] Glucose [Mass/Vol] 95 mg/dL Normal 70-99 [facility] Comment on above: Result Comment: Nadia tment ranges and critical values established by Patient Care Services. All follow-up actions were taken by Patient Care Services. Performed By: #### 2 430-8 ####[facility] Glucose [Mass/Vol] 123 mg/dL High 70-99 [facility] Comment on above: Result Comment: Nadia tment [...] SABRINA VELASQUEZ/Sex: 1990 Female Med Rec #: [id number] Physician: Marcellus Driscoll MD Financial #: [id number] Pt. Type: I Room/Bed: [address] [place] [address] Admit/Disch: 02/28/19 08:18:00 - Institution: [facility] [...] Rendon RN 03/01/19 07:03 Normal [facility] Patient Summaryon 03-01-2019 Patient Summary PATIENT DISCHARGE INSTRUCTIONS If you are having an emergency and are not able to reach your physician, CALL 911 or go to the nearest emergency room and take this document with you. [facility] 03/01/19 18:42 [address] [place]. [address] PATIENT INFORMATION Name: SABRINA VELASQUEZ Address: [address] [place] [id number] Age: 29 Years Phone: [phone] : 1990 12:00 MRN: [facility][id number] Sex: Female Race: White Ethnicity: Declined Admitted From: Clinic or [facility] Medical Service: Surgery Nurse Unit/Bed: (CO) 7TWH 6V23-86 Admit Date: 02/28/2019 08:18 PCP: Omid Killian MD PHYSICIANS INVOLVED WITH CARE ------ Attending Physicians: Marcellus Driscoll MD - Surgery Admitting Physician: Marcellus Driscoll MD - Surgery Primary Care Physician:Omid Killian MD, - Consults: None found FOLLOW-UP APPOINTMENTS: Provider: Specialty: Address: Date: Marcellus Driscoll MD Surgery [address] [place] [address] (1) 03/08/19 01:45 pm Comment: Please follow-up at your pre-scheduled appointment. Provider: Specialty: Address: Date: Omid Killian MD [address] [facility] [address] (1) Follow-up as needed Provider: Specialty: Address: Date: Post-Op Nutrition Class [address] [facility] [address] 03/22/19 Comment: Please call [phone] for more information or to re-schedule. ALLERGIES: [...] doses are changed, or new medications (including gpcw-hpl-vjqmxbk products) are added. Ask your doctor if [...] diet. Follow recommendations from your surgeon and alcoholic counselor regarding you diet. Refer to nutrition information [...] doctor before taking any supplements, herbal or iksc-zdc-ivhzpgx medications. Call your physician if any questions [...] suicide hotline, anytime day or night, at 1-118-124-SWHP. Important information about accessing your health information through the [facility] patient portal If you initiated the self-registration process for [facility] during your stay, please check your personal email for an invitation to enroll in [facility] and complete the steps outlined in the email. If you would prefer to enroll while in the hospital, ask a member of your care team. We would be happy to assist you. If you have already enrolled in [facility], go to [email or web address] to login and access your health information. Thank you for choosing [facility]. PATIENT EDUCATION Gastric Bypass Surgery, Care After [...] of caffeine can cause dehydration. ?? A alcoholic counselor may also give you specific instructions. ?? [...] 06/30/2005 Document Revised: 12/07/2015 Document Reviewed: 04/08/2011 [employer] Interactive Patient Education ??2016 [place]. Gastric Bypass Discharge Instructions 1. Follow-up Care [...] dietitian for post-operative class at 2 weeks [phone] ? Call Bariatric Nurse Navigator [phone] with any further questions or concerns Call [phone] if you have difficulty breathing or chest [...] is for informational purposes only. [facility] does not promote, condone or endorse all the values expressed herein. The values or opinions they express with regard to the use of artificial contraception are not consistent with the teachings of the [employer] and the Ethical and Zoroastrianism Directives for [facility] Care Services. If any of these instructions are different from what your doctor tells you, follow your doctor's orders. If you smoke, you should quit. For more information, talk with your doctor or call [phone]-NOW ( ). PATIENT DISCHARGE INSTRUCTION Signature Page for: SABRINA VELASQUEZ Date/Time: 03/01/2019 18:42:02 A Clinician has explained the information on my discharge instructions and has provided me with a copy. My questions have been answered to my satisfaction. Patient Signature Date/Time Responsible Party Date/Time Relationship to Patient Clinician Signature Date/Time Normal [facility] Glucose POCT (Uploaded)on Glucose [Mass/Vol] 140 mg/dL High 70-99 [facility] Comment on above: Result Comment: Nadia tment ranges and critical values established by Patient Care Services. All follow-up actions were taken by Patient Care Services. Performed By: #### 2 430-8 ####[facility] Glucose [Mass/Vol] 127 mg/dL High 70-99 [facility] Comment on above: Result Comment: Nadia tment ranges and critical values established by Patient Care Services. All follow-up actions were taken by Patient Care Services. Performed By: #### 2 430-8 ####[facility] Glucose [Mass/Vol] 141 mg/dL High 70-99 [facility] Comment on above: Result Comment: Nadia tment ranges and critical values established by Patient Care Services. All follow-up actions were taken by Patient Care Services. Performed By: #### 2 430-8 ####[facility] Glucose [Mass/Vol] 164 mg/dL High 70-99 [facility] Comment on above: Result Comment: Nadia tment [...] SABRINA Garcia/Sex: 1990 Female Med Rec #: [id number] Physician: Marcellus Driscoll MD Financial #: [id number] Pt. Type: I Room/Bed: / Admit/Disch: 02/28/19 [...] CRNA Role Performed Primary Surgeon Anesthesiologist Nurse Proof Press Operator Time In 02/28/19 11:17:00 02/28/19 11:17:00 [...] Guaman RN , Litzy Garcia Role Performed race car mechanic RN First Scrub Time In 02/28/19 11:17:00 02/28/19 11:17:00 02/28/19 11:17:00 Time Out 02/28/19 14:05:00 02/28/19 14:05:00 02/28/19 14:05:00 Procedure Bypass Gastric Bypass Gastric Bypass Gastric Robot(N/A) Robot(N/A) Robot(N/A) Attendee Comment LUNCH [id number] LUNCH [id number] lunch [id number] Relief Reason Last Modified By: Abner RN , Disha Levine RN , Disha Levine RN , Disha Aiken 02/28/19 14:09:25 02/28/19 14:09:25 02/28/19 14:09:25 Entry 7 Entry 8 Entry 9 Case Attendee Adi MARTIN , Swetha Rao Case, Attendee Other Role Performed race car mechanic First Scrub Technical Project Manager Time In 02/28/19 11:48:00 02/28/19 11:57:00 02/28/19 11:17:00 Time Out 02/28/19 12:40:00 02/28/19 12:53:00 02/28/19 14:05:00 Procedure Bypass Gastric Bypass Gastric Bypass Gastric Robot(N/A) Robot(N/A) Robot(N/A) Attendee Comment MIRANDA, [place] - INTUITIVE Relief Reason Last Modified By: Abner RN , Disha Levine RN , Disha Levine RN , Disha Aiken 02/28/19 14:09:25 02/28/19 14:09:25 02/28/19 14:09:25 [facility] OR General Case Foam Machine Operator 1 OR CO W 11 ASA Class [...] Arrival? No 16FR TEMP SEN W/URINE METER [id number] Inserted By Rowena MARTIN , Oly ESTEVEZ'joel [...] OR Temperature Regulation Entry 1 Unit ID [id number] Site UPPER BODY Last Modified By: Gissell Johsi RN 02/28/19 11:58:29 [facility] OR Final [...] Levine RN 02/28/19 14:10 Normal [facility] PreOp Nursingon 02-28-2019 PreOp Nursing [facility] PreOp Nursing Record Summary Primary Physician: Marcellus Driscoll MD Finalized Date/Time: 02/28/19 12:08:12 Pt. Name: SABRINA VELASQUEZ /Sex: 1990 Female Med Rec #: [id number] Physician: Marcellus Driscoll MD Financial #: [id number] Pt. Type: I Room/Bed: / Admit/Disch: 02/28/19 [...] Joshi RN 02/28/19 12:08 Normal [facility] CBC with Differentialon 01-29 Basophils (Bld) [#/Vol] 0.00 thou/mcL Normal 0.00-0.20 [facility] Comment on above: Performed By: #### 5 7021-8 #### [address] Basophils/100 WBC (Bld) 0.4 % Normal 0.0-2.0 [facility] Comment on above: Performed By: #### 5 7021-8 #### [address] Eosinophils (Bld) [#/Vol] 0.10 thou/mcL Normal 0.00-0.70 [facility] Comment on above: Performed By: #### 5 7021-8 #### [address] Eosinophils/100 WBC (Bld) 1.5 % Normal 0.0-7.0 [facility] Comment on above: Performed By: #### 5 7021-8 #### [address] Erythrocyte distribution width (RBC) [Entitic vol] 14.8 % Normal 11.0-14.8 [facility] Comment on above: Performed By: #### 5 7021-8 #### [address] Hematocrit (Bld) [Volume fraction] 41.4 % Normal 35.0-45.0 [facility] Comment on above: Performed By: #### 7021-8 #### [address] Hemoglobin (Bld) [Mass/Vol] 13.7 g/dL Normal 12.0-16.0 [facility] Comment on above: Performed By: #### 7021-8 #### [address] Lymphocytes (Bld) [#/Vol] 1.80 thou/mcL Normal 1.00-4.80 [facility] Comment on above: Performed By: #### 70-8 #### [address] Lymphocytes/100 WBC (Bld) 21.5 % Low 22.0-44.0 [facility] Comment on above: Performed By: #### 7021-8 #### [address] MCH (RBC) [Entitic mass] 28.6 Picograms Normal 27.0-34.0 [facility] Comment on above: Performed By: #### 7021-8 #### [address] MCHC (RBC) [Mass/Vol] 33.2 g/dL Normal 32.0-36.0 [facility] Comment on above: Performed By: #### 7021-8 #### [address] MCV (RBC) [Entitic vol] 86.0 fL Normal 80.0-97.0 [facility] Comment on above: Performed By: #### 7021-8 #### [address] Monocytes (Bld) [#/Vol] 0.60 thou/mcL Normal 0.00-0.90 [facility] Comment on above: Performed By: #### 5 7021-8 #### [place] [address] [place], [place] Monocytes/100 WBC (Bld) 7.5 % Normal 0.0-12.0 [facility] Comment on above: Performed By: #### 7021-8 #### [place] [address] [place], [place] Neutrophils (Bld) [#/Vol] 5.90 thou/mcL Normal 1.80-7.70 [facility] Comment on above: Performed By: #### 7021-8 #### [facility] [address] Neutrophils/100 WBC (Bld) 69.1 % Normal 40.0-70.0 [facility] Comment on above: Performed By: #### 7021-8 #### [facility] [address] Platelet mean volume (Bld) [Entitic vol] 11.3 fL Normal 6.2-12.1 [facility] Comment on above: Performed By: #### 7021-8 #### [address] Platelets (Bld) [#/Vol] 194 thou/mcL Normal 142-424 [facility] Comment on above: Performed By: #### 7021-8 #### [address] RBC (Bld) [#/Vol] 4.81 million/mcL Normal 3.80-5.10 [facility] Comment on above: Performed By: #### 7021-8 #### [place] [address] [place], [place] WBC (Bld) [#/Vol] 8.5 thou/mcL Normal 4.6-10.2 [facility] Comment on above: Performed By: #### 7021-8 #### [address] Comprehensive Metabolic Pane lacho 2019 Albumin [Mass/Vol] 3.3 g/dL Low 3.5-4.8 [facility] Comment on above: Performed By: #### 2 4323-8, 22058-6a8, 50905-6 ####[facility] [address], [place] ALP [Catalytic activity/Vol] 72 Units/L Normal 32-91 [facility] Comment on above: Performed By: #### 2 4323-8, 32028-4k3, 26146-5 ####[facility] [address], [place] ALT [Catalytic activity/Vol] 18 Units/L Normal 14-63 [facility] Comment on above: Performed By: #### 2 4323-8, 34874-9u2, 97258-8 ####[facility] [address], [place] Anion gap [Moles/Vol] 10.0 mmol/L Normal 6.0-18.0 [facility] Comment on above: Performed By: #### 2 4323-8, 22067-0b1, 48698-7 ####[facility] [address], [place] AST [Catalytic activity/Vol] 17 Units/L Normal 15-41 [facility] Comment on above: Performed By: #### 2 4323-8, 07329-4i9, 96497-2 ####[facility] [address], [place] Bilirubin [Mass/Vol] 0.7 mg/dL Normal 0.3-1.2 [facility] Comment on above: Performed By: #### 2 4323-8, 63229-8x9, 75080-9 ####[facility] [address], [place] Calcium [Mass/Vol] 8.5 mg/dL Low 8.9-10.3 [facility] Comment on above: Performed By: #### 2 4323-8, 10113-1q8, 50567-9 ####[facility] [address], [place] Chloride [Moles/Vol] 104 mmol/L Normal 98-107 [facility] Comment on above: Performed By: #### 2 4323-8, 84678-9f2, 24701-4 ####[facility] [address], [place] CO2 [Moles/Vol] 22 mmol/L Normal 22-32 [facility] Comment on above: Performed By: #### 2 4323-8, 50437-3c8, 72521-8 ####[facility] [address], [place] Creatinine [Mass/Vol] 0.79 mg/dL Normal 0.60-1.30 [facility] Comment on above: Performed By: #### 2 4323-8, 32918-0k9, 18081-4 ####[facility] [address], [place] Glucose [Mass/Vol] 93 mg/dL Normal 70-99 [facility] Comment on above: Result Comment: U pdated ADA Reference Range A normal fasting glucose concentration is less than 100 mg/dL. An impaired fasting glucose concentration is 100-125 mg/dL. A provisional diagnosis of diabetes mellitus can be made when a fasting glucose concentration is greater than 125 mg/dL. Performed By: #### 2 4323-8, 56431-6g6, 02560-5 ####[facility] [address], [place] Potassium [Moles/Vol] 4.1 mmol/L Normal 3.6-5.1 [facility] Comment on above: Performed By: #### 2 4323-8, 92742-9r5, 73865-6 ####[facility] [address], [place] Protein [Mass/Vol] 6.0 g/dL Low 6.1-7.9 [facility] Comment on above: Performed By: #### 2 4323-8, 08242-1b0, 09943-1 ####[facility] [address], [place] Sodium [Moles/Vol] 136 mmol/L Normal 136-145 [facility] Comment on above: Performed By: #### 2 4323-8, 36806-1y3, 54834-7 ####[facility] [address] [place], [place] Urea nitrogen (BldV) [Mass/Vol] 13 mg/dL Normal 8-20 [facility] Comment on above: Performed By: #### 2 4323-8, 32822-3w2, 72426-8 ####[place] [address] [place], [place] GFRaaon 2019 GFR/1.73 sq M predicted among blacks MDRD (S/P/Bld) [Vol rate/Area] mL/min/{1.73_m2} Normal [facility] Comment on above: Result Comment: The MDRD equation has not been validated for those over 70 years, women, patients with serious co-morbid conditions, or with extremes of body size, muscle mass of nutritional status. Performed By: #### 2 4323-8, 96213-9i7, 19161-2 ####[address] GFRbbon 2019 GFR/1.73 sq M predicted among non-blacks MDRD (S/P/Bld) [Vol rate/Area] mL/min/{1.73_m2} Normal [facility] Comment on above: Performed By: #### 2 4323-8, 54623-6f6, 19477-7 ####[address] Glycohemoglobin (HGB A1C) Emanuel guardado 2019 HbA1c (Bld) [Mass fraction] 5.0 % tl hgb Normal <5.6 [facility] Comment on above: Result Comment: U pdated ADA Reference Range HbA1c values of 5.7-6.4 percent indicate an increased risk for developing diabetes mellitus. HbA1c values greater than or equal to 6.5 percent are diagnostic of diabetes mellitus. For diagnosis of diabetes in individuals without unequivocal hyperglycemia, results should be confirmed by repeat testing. Performed By: #### 4 549-2 ####[facility], [address] [place] [address]. Partial Thromboplastin Time (aPTT)on 2019 aPTT Coag (PPP) [Time] 29.6 Sec Normal 23.6-35.3 [facility] Comment on above: Performed By: #### 3 173-2, 5902-2 ####[facility], [address] [place] [address]. Prothrombin Timeon 9 INR Coag (Bld) [Relative time] 1.00 {INR} Normal [facility] Comment on above: Result Comment: The recommended therapeutic INR range for most cardiac indications is 2.0-3.0. For high intensity therapy(ie.mechanical heart valves), the recommended range is 2.5-3.5. Performed By: #### 3 173-2, 5902-2 ####[facility], [address] [place] [address]. PT Coag (PPP) [Time] 11.5 Sec Normal 9.3-12.4 [facility] Comment on above: Performed By: #### 3 173-2, 5902-2 ####[facility], [address] [place] [address]. XR Chest 2 Viewson 9 XR Chest 2 views Two-view chest exam Indication: pre-op. Cough for the past week. COMPARISON: E 66.01 FINDINGS: The lungs are clear and the costophrenic angles are sharp. The cardiomediastinal silhouette and bones are normal. IMPRESSION: Normal chest. [facility] thanks you for the opportunity to care for your patient. Workstation ID: [id number] FINAL REPORT Dictated By: Jean Hull MD 2019 08:47 Assigned Physician: Jean Hull MD Reviewed and Electronically Signed By: Jean Hull MD 2019 08:48 Transcribed by: GREGORY 2019 08:47 Technologist: SHAKA Carranza [facility] OR Nursingon 09-17-2018 OR Nursing [facility] OR Nursing Record Summary Primary Physician: Tristan Tate MD Finalized Date/Time: 09/17/18 07:39:53 Pt. Name: SABRINA VELASQUEZ /Sex: 1990 Female Med Rec #: [id number] Physician: Financial #: [id number] Pt. Type: I Room/Bed: / Admit/Disch: 09/16/18 [...] Case Attendee Keli URBINA , Tristan Delvalle OPERATING SYSTEMS PROGRAMMER , Charbel Wolf DO Role Performed Primary Surgeon Nurse Proof Press Operator Anesthesiologist Time In 09/16/18 14:20:00 09/16/18 14:20:00 09/16/18 14:20:00 Time Out 09/16/18 14:30:00 09/16/18 14:30:00 09/16/18 14:30:00 Procedure Egd_(N/A) Egd_(N/A) Egd_(N/A) Attendee Comment Relief Reason Last Modified By: Breanna RN , Afia Carlos RN , Afia Reyes RN 09/16/18 14:31:12 09/16/18 14:31:12 09/16/18 14:31:12 Entry 4 Entry 5 Case Attendee Breanna RN , Rosalio Cruz RN Role Performed race car mechanic Premises Technician Time In 09/16/18 14:20:00 09/16/18 14:20:00 Time Out 09/16/18 14:30:00 09/16/18 14:30:00 Procedure Egd_(N/A) Egd_(N/A) Attendee Comment Relief Reason Last Modified By: Afia Carlos RN, RN, Courtney 09/16/18 14:31:12 09/16/18 14:31:12 [facility] General Case Foam Machine Operator 1 OR CO W EN 02 ASA [...] 09/16/18 14:29:02 Case Comments Finalized By: Sherrie Rednon RN Document Signatures Signed By: Afia Carlso RN 09/16/18 14:31 Sherrie Rendon RN 09/17/18 07:37 Sherrie Rendon RN 09/17/18 07:38 Sherrie Rendon RN 09/17/18 07:39 Sherrie Rendon RN 09/17/18 07:39 Normal [facility] Post PACU Nursingon 09-17-20 18 Post PACU Nursing CO W Endo PACU II Nursing Record Summary Primary Physician: Tristan Tate MD Finalized Date/Time: 09/17/18 07:40:27 Pt. Name: SABRINA VELASQUEZ/Sex: 1990 Female Med Rec #: [id number] Physician: Financial #: [id number] Pt. Type: I Room/Bed: / Admit/Disch: 09/16/18 13:46:00 - 09/16/18 15:20:00 Institution: [facility] Endo PACU II Case Times Entry 1 In PACU II 09/16/18 14:34:00 Ready for PACU II 09/16/18 14:49:00 Discharge Discharge from PACU 09/16/18 15:20:00 II Last Modified By: Rocio Turcios RN 09/16/18 15:26:17 CO [facility] Endo PACU II Case Attendees Entry 1 Case Attendee Rocio Turcios RN Role Performed RN Last Modified By: Rocio Turcios RN 09/16/18 15:04:00 Finalized By: Sherrie Rendon RN Document Signatures Signed By: Sherrie Rendon RN 09/17/18 07:35 Sherrie Rendon RN 09/17/18 07:40 Normal [facility] PreOp Nursingon 09-17-2018 PreOp Nursing CO [facility] Endo PreOp Nursing Record Summary Primary Physician: Tristan Tate MD Finalized Date/Time: 09/17/18 07:36:42 Pt. Name: SABRINA VELASQUEZ/Sex: 1990 Female Med Rec #: [id number] Physician: Financial #: [id number] Pt. Type: I Room/Bed: / Admit/Disch: 09/16/18 [...] Rendon RN 09/17/18 07:36 Normal [facility] Patient Summaryon 09-16-2018 Patient Summary PATIENT DISCHARGE INSTRUCTIONS If you are having an emergency and are not able to reach your physician, CALL 911 or go to the nearest emergency room and take this document with you. [facility] 09/16/18 14:45 [address] [place]. [address] PATIENT INFORMATION Name: SABRINA VELASQUEZ Address: [address] [place] [phone] Age: 28 Years Phone: [phone] : 1990 12:00 MRN: ([id number] Sex: Female Race: White Ethnicity: Declined Admitted From: Clinic or [facility] Medical Service: Surgery Nurse Unit/Bed: (CO) ESSENCE [...] doses are changed, or new medications (including lujl-tmp-[id number] products) are added. Ask your doctor if [...] suicide hotline, anytime day or night, at 9-628-336-YVFH. Important information about accessing your health information through the [facility] patient portal If you initiated the self-registration process for [facility] during your stay, please check your personal email for an invitation to enroll in [facility] and complete the steps outlined in the email. If you would prefer to enroll while in the hospital, ask a member of your care team. We would be happy to assist you. If you have already enrolled in [facility], go to [email or web address] to login and access your health information. Thank you for choosing [facility]. PATIENT EDUCATION Esophagogastroduodeno scopy, Care After Refer [...] Reviewed: 11/02/2013 Elsevier Interactive Patient Education ?2016 [employer] VIRUSES OR BACTERIA: WHAT'S GOT YOU [...] Patient Clinician Signature Date/Time Normal [facility] ECG 12 leadon 06-14-2018 Atrial Rate Invalid Interpretation Code [facility] P [place] Invalid Interpretation Code [facility] P-R Interval Invalid Interpretation Code [facility] Q-T Interval Invalid Interpretation Code [facility] Q-T Interval (corrected) Invalid Interpretation Code [facility] QRS Duration Invalid Interpretation Code [facility] QTC Calculation (Bezet) Invalid Interpretation Code [facility] R [place] Invalid Interpretation Code [facility] T [place] Invalid Interpretation Code [facility] Ventricular Rate Invalid Interpretation Code [facility] Vital Signs Date Time Vital Sign Value Performing Clinician Abbey ruiz 06-01-2025 09:55-0400 Body mass index (BMI) [Ratio] 41.04 kg/m2 Arvind Mallory DO Work Phone: [facility] 06-01-2025 09:55-0400 Body weight 115.33 kg Arvind Mallory DO Work Phone: [facility] 06-01-2025 09:55-0400 Diastolic blood pressure 74 mm[Hg] Arvind Mallory DO Work Phone: [facility] 06-01-2025 09:55-0400 Systolic blood pressure 110 mm[Hg] Arvind Mallory DO Work Phone: [facility] 05-03-2025 11:18-0400 Body mass index (BMI) [Ratio] 41.87 kg/m2 Arvind Mallory DO Work Phone: [facility] 05-03-2025 11:18-0400 Body weight 117.66 kg Arvind Mallory DO Work Phone: [facility] 05-03-2025 11:18-0400 Diastolic blood pressure 74 mm[Hg] Arvind Mallory DO Work Phone: [facility] 05-03-2025 11:18-0400 Systolic blood pressure 116 mm[Hg] Arvind Mallory DO Work Phone: [facility] 03-30-2025 11:46-0400 Body mass index (BMI) [Ratio] 43.87 kg/m2 Arvind Mallory DO Work Phone: [facility] 03-30-2025 11:46-0400 Body weight 123.29 kg Arvind Mallory DO Work Phone: [facility] 03-30-2025 11:46-0400 Diastolic blood pressure 80 mm[Hg] Arvind Mallory DO Work Phone: [facility] 03-30-2025 11:46-0400 Systolic blood pressure 120 mm[Hg] Arvind Mallory DO Work Phone: [facility] 03-02-2025 12:04-0400 Body mass index (BMI) [Ratio] 44.22 kg/m2 Arvind Mallory DO Work Phone: [facility] 03-02-2025 12:04-0400 Body weight 124.29 kg Arvind Mallory DO Work Phone: [facility] 03-02-2025 12:04-0400 Diastolic blood pressure 76 mm[Hg] Arvind Mallory DO Work Phone: [facility] 03-02-2025 12:04-0400 Systolic blood pressure 124 mm[Hg] Arvind Mallory DO Work Phone: [facility] 08-16-2024 13:22-0400 Body mass index (BMI) [Ratio] 43.16 kg/m2 Arvind Mallory DO Work Phone: [facility] 08-16-2024 13:22-0400 Body weight 121.29 kg Arvind Mallory DO Work Phone: [facility] 08-16-2024 13:22-0400 Diastolic blood pressure 74 mm[Hg] Arvind Mallory DO Work Phone: [facility] 08-16-2024 13:22-0400 Systolic blood pressure 124 mm[Hg] Ravind Mallory DO Work Phone: [facility] 08-09-2024 13:21-0400 Body mass index (BMI) [Ratio] 43.42 kg/m2 Arvind Mallory DO Work Phone: [facility] 08-09-2024 13:21-0400 Body weight 122.02 kg Arvind Mallory DO Work Phone: [facility] 08-09-2024 13:21-0400 Diastolic blood pressure 74 mm[Hg] Arvind Mallory DO Work Phone: [facility] 08-09-2024 13:21-0400 Systolic blood pressure 118 mm[Hg] Arvind Mallory DO Work Phone: [facility] 07-14-2020 13:00-0400 BP Diastolic 78 mm[Hg] [facility] Tristan [facility] 07-14-2020 13:00-0400 BP Systolic 123 mm[Hg] Alicia Hudson [facility] 07-14-2020 13:00-0400 Pulse (Heart Rate) 55 /min Alicia Hudson [facility] 07-14-2020 13:00-0400 Pulse Oximetry 100 % Alicia Hudson [facility] 07-14-2020 10:06-0400 Body Temperature 98.8 [degF] [facility] 07-14-2020 10:04-0400 BMI (Body Mass Index) 43.58 kg/m2 Alicia Hudson [facility] 07-14-2020 10:04-0400 Body weight 122.47 kg Alicia Hudson [facility] 07-14-2020 10:04-0400 Height 167.6 cm Alicia Hudson [facility] 07-14-2020 10:04-0400 Respiratory Rate 16 /min [facility] 06-14-2018 09:16-0400 BMI (Body Mass Index) [...] Departed Referred Arvind Tejada -LAB [facility] Start: 06-01-2025 End: 06-01-2025 Patient encounter procedure Arvind Tejada DO Work Phone: [facility] Comment on above: Postoperative follow -up; Encounter for weight management; Menorrhagia with irregular cycle; Abnormal bleeding in menstrual cycle Start: 06-01-2025 End: 06-01-[address] [facility] Work Phone: Start: 05-03-2025 End: 05-03-2025 [...] Start: 04-27-2025 End: 04-27-2025 ambulatory Arvind Mallory [facility] Work Phone: Start: 04-27-2025 End: 04-27-2025 Departed Referred Arvind Mallory DO Work Phone: [facility] Start: 04-26-2025 End: 04-26-2025 Clinisync Result [...] Sterilization consult Start: 03-30-2025 End: 03-30-2025 ambulatory AVRIND MALLORY Not Available Start: 03-02-2025 End: 03-02-2025 [...] 07-05-2024 Emergency department patient visit KAI [facility] Start: 07-04-2024 End: 07-04-2024 ambulatory YESSICA GOVEA Not Available Start: 06-25-2024 End: 06-25-2024 ambulatory Radha Tomas [facility] Work Phone: Start: 06-25-2024 End: 06-25-2024 Departed Referred MD Radha Tomas Work Phone: [facility] Start: 06-21-2024 End: 06-21-2024 ambulatory YESSICA GOVEA Not Available Start: 06-14-2024 End: 06-14-2024 ambulatory ARVIND MALLORY Not Available Start: 06-09-2024 End: 06-09-2024 ambulatory ARVIND MALLORY Not Available Start: 07-14-2020 End: 07-14-2020 Emergency department patient visit OMID KILLIAN [facility] Start: 07-14-2020 End: 07-14-2020 Emergency department patient visit Alicia Hudson Work Phone: [facility] Emergency Department Comment on above: Threatened (Primary Dx) Start: 12-13-2018 End: 12-13-2018 Patient encounter procedure Lauren Rivera [facility] Dermatology Start: 06-14-2018 End: 06-14-2018 Patient encounter PROVIDER NOT IN SYSTEM [facility] Start: 06-14-2018 End: 06-14-2018 Office outpatient new 30 minutes Provider Not In System [facility] Cardiology Start: 05-17-2018 End: 05-17-2018 Patient encounter VANESSA ROLAND [facility] Start: 05-17-2018 End: 05-17-2018 Office outpatient new 30 minutes Vanessa Roland Work Phone: [facility] Dermatology [...] EDT Office Visit [facility] [address] [place] [phone] Arvind Tejada, DO [address] [place] [address] [facility] Start: 06-01-2025 End: 06-01-2025 Patient encounter procedure 06/01/2025 10:20 AM EDT Consult [facility] [address] [place] [place] [phone] Arvind Tejada, DO [address] [place] [address] [facility] Start: 05-03-2025 End: 05-03-2025 Patient encounter procedure [facility] Comment on above: Arrived Start: 05-02-2025 End: 05-02-2025 Patient encounter procedure 05/02/2025 9:30 AM EDT Procedure Visit [facility] [address] [place] [place] [address] Arvind Tejada, DO [address] [place] [address] [facility] Start: 04-27-2025 End: 04-27-2025 Patient encounter procedure 04/27/2025 10:30 AM EDT Office Visit [facility] [address] [place] [place] [address] Arvind Tejada DO [address] [place] [address] [facility] Start: 04-20-2025 End: 04-20-2025 Patient encounter procedure 04/20/2025 11:00 AM EDT Office Visit [facility] [address] [place] [phone] Yessica Govea PA [address] [place] [address] [facility] Start: 03-30-2025 End: 03-30-2025 Patient encounter procedure 03/30/2025 11:30 AM EDT Office Visit [facility] [address] [place] [phone] Arvind Tejada, DO [address] [place] [address] [facility] Start: 03-30-2025 End: 03-30-2025 Professional / ancillary services management 03/30/2025 11:00 AM EDT Ancillary Procedure [facility] [address] [place] [phone] [facility] Start: 03-02-2025 End: 03-02-2026 US Pelvis transvaginal US pelvis transvaginal Imaging Routine Intrauterine device surveillance Abnormal uterine bleeding (AUB) Expected: 03/02/2025, Expires: [facility]02[facility]: Comment on above: Expected: 03/02/2025 , Expires: 03/02/2026 Start: 2025 End: 2025 Patient encounter procedure 2025 2:00 PM EDT Office Visit [facility] [address] [place] [phone] Arvind Tejada, DO [address] [place] [address] [facility] Start: 08-16-2024 End: 08-16-2024 Patient encounter procedure 08/16/2024 1:00 PM EDT Procedure Visit [facility] [address] [place] [phone] Arvind Tejada, DO [address] [place] [address] [phone] (work) [facility] Start: 07-31-2020 Influenza vaccinatio n given Sequential Influenza Vaccine (#1) [facility] Start: 07-31-2018 Influenza vaccination [facility] Start: 07-31-2018 Influenza vaccinatio n given SEQUENTIAL INFLUENZA VACCINE (#1) [facility] Start: 07-19-2018 End: 07-19-2018 Ambulatory 07/19/2018 Office Visit Dermatology Vanessa Roland Jr., [address] [place] [address] [phone] [facility] Dermat[facility] Start: 06-14-2018 End: 06-14-2018 Ambulatory 06/14/2018 Office Visit Cardiology System, Provider Not In [facility], Josefina Matthew MD [address] [place] [address] [phone] [facility] Start: 02-21-2010 Hepatitis C antibody , confirmatory test Hepatitis C Screening [facility] Start: 02-21-2007 HIV screening HIV Screening [facility] Start: 02-21-1995 History and physical examination, annual for health maintenance Wellness Visit [facility] Start: 1990 Screening for malign ant neoplasm of cervix PAP SMEAR [facility] Start: 1992 Tetanus vaccination [facility] End: 07-14-2020 Neisseria gonorrhoeae nucleic acid detection Chlamydia/Gonorrhoeae Amplified RNA Microbiology Routine Once for 1 Occurrences starting 07/14/2020 until 07/14/2020 [facility] Comment on above: Once for 1 Occurrenc es starting 07/14/2020 until 07/14/2020 Neisseria gonorrhoea e nucleic acid detection Chlamydia/Gonorrhoeae Amplified RNA Microbiology Routine 07/14/2020 11:20 AM EDT [facility] Payers Date Payer Category Payer Self-pay 2023 Medicaid [facility] MEDIC AID [employer] [place] [id number] 2023-Present [address] [place] [address] [id number] 2023 Private Health Insurance [facility] MEDICAID [id number] 2023 Medicaid [id number] 2020 Medicaid [employer] [facility] MEDICAID [facility] MEDICAID xxxxxxxxxxx 2020-Present xxxxxxxxxxx [id number] 2020 Medicaid [id number] 2019 Private Health Insurance [id number] 2017 Unknown [id number] 2017 Unknown [facility] HMO/BECKY/ BECKY PLUS/CHOICE PLUS xxxxxxxxx 2017-Present xxxxxxxxx [id number] 1992 Unknown [id number] [id number]. 903 1992 Unknown [id number] [id number]. 9 1992 Unknown [id number] 2.16840.1.130060.3.579.2. 1259 1992 Unknown [id number] 2.16840.1.419033.3.579.2. 9 1992 Unknown [id number] 2.16840.1.243351.3.579.2. 1259 1992 Unknown [id number] 2.16840.1.161334.3.579.2. 1258 1992 Unknown [id number] 2.16.840.1.533579.3.579.2. 1258 1992 Unknown [id number] 2.16.840.1.991224.3.579.2. 1258 1992 Unknown [id number] 2.16.840.1.911669.3.579.2. 1258 1992 Unknown [id number] 2.16.840.1.416002.3.579.2. 1258 1992 Unknown [id number] 2.16.840.1.852400.3.579.2. 1258 1992 Unknown [id number] 2.16.840.1.047361.3.579.2. 1258 1992 Unknown [id number] [id number]. 1259 Social History Date Type Detail Facility Start: 05-17-2018 End: 06-14-2018 Tobacco smoking status SDIS Never smoker [facility] Sex Assigned At Not on file [facility] Start: 07-14-2020 Tobacco smoking status [facility] Current some day smoker [facility] Start: 07-14-2020 Alcohol intake Current non-drinker of alcohol (finding) [facility] Exposure to SARS-CoV -2 (event) Not sure [facility] Start: 1990 Sex Assigned At Female [facility] Tobacco smoking stat [facility]UST[facility] Tobacco smoking consumption unknown [facility] Start: 12-03-2023 Gender identity Identifies as female gender (finding) [facility] Start: 12-03-2023 Sexual orientation Heterosexual (finding) [facility] Start: 04-29-2025 Sex Female (finding) [facility] Clinical Notes 08-09-2024 to 06-01-2025 Latanya [...] on 07/07/[address] Tejada at [facility]. appointment. MEDICATIONS Current Outpatient Medications Medication [...] Past Medical History: Diagnosis Date Drug abuse ([facility]) H/O chlamydia infection H/O gonorrhea H/O herpes simplex infection Rh negative, maternal ([facility]) HISTORY PAST MEDICAL HISTORY SOCIAL HISTORY Past Medical History: Diagnosis Date Drug abuse ([facility]) H/O....PT IS CURRRENTLY 7 MONTHS SOBER OF 12/10/2023 H/O chlamydia infection H/O gonorrhea H/O herpes simplex infection Rh negative, maternal ([facility]) Social History Tobacco Use Smoking status: Not [...] nursing note reviewed. Exam conducted with a imaging account manager present. Vitals: Estimated body mass index is [...] Performed by: Arvind Tejada DO Authorized by: Avrind Tejada DO Consent: Consent obtained: written Consent [...] reviewed, and patient is to proceed to [facility] OR. Follow Up: Patient is to follow up between 1-2 weeks post operative to assess proper healing and recovery from procedure. Documented by Latanya Barkley LPN on behalf of: Arvind Tejada DO documented in this encounter [facility] 05-03-2025 History of Present illness Narrative Reason [...] nursing note reviewed. Exam conducted with a imaging account manager present. Vitals: Estimated body mass index is [...] Arvind Tejada DO documented in this encounter [facility] 03-30-2025 History of Present illness Narrative Reason [...] nursing note reviewed. Exam conducted with a imaging account manager present. Vitals: Estimated body mass index is [...] Arvind Tejada DO documented in this encounter [facility] 03-02-2025 History of Present illness Narrative Reason [...] nursing note reviewed. Exam conducted with a imaging account manager present. Vitals: Estimated body mass index is [...] Arvind Tejada DO documented in this encounter [facility] 08-16-2024 History of Present illness Narrative Associated [...] nursing note reviewed. Exam conducted with a imaging account manager present. Vitals: Estimated body mass index is [...] given: yes Instructions and paperwork completed: yes Dennis protocol: Patient states understanding of procedure being [...] Arvind Tejada DO documented in this encounter [facility] 08-09-2024 History of Present illness Narrative Reason [...] 800 mg, Oral, Every 6 hours PRN [id number] ( 1 + IRON PO) Oral ALLERGIES No Known Allergies PROBLEMS Active Ambulatory Problems Diagnosis Date Noted No Active Ambulatory Problems Resolved Ambulatory Problems Diagnosis Date Noted No Resolved Ambulatory Problems Past Medical History: Diagnosis Date Drug abuse (CMS/[facility]) H/O chlamydia infection H/O gonorrhea [...] nursing note reviewed. Exam conducted with a imaging account manager present. Vitals: Estimated body mass index is [...] Arvind Tejada DO documented in this encounter [facility] Healthcare Evaluation note No assessment inform ation available [facility] Work Phone: Evaluation note Diagnosis 6 weeks follow-up S/P section Other postprocedural status documented in this encounter [facility] HealthcareEvaluation note* Diagnosis Encounter for IUD insertion Insertion of intrauterine contraceptive device documented in this encounter [facility] HealthcareEvaluation note* Diagnosis Intrauterine device surveillance Abnormal uterine bleeding (AUB) Encounter for weight management Hidradenitis suppurativa Hidradenitis documented in this encounter [facility] HealthcareEvaluation note* Diagnosis Encounter for weight management Abnormal uterine bleeding (AUB) Sterilization consult Other general counseling and advice for contraceptive management documented in this encounter [facility] HealthcareEvaluation note* Diagnosis Encounter for weight management documented in this encounter [facility] HealthcareEvaluation note* Diagnosis Postoperative follow-up Follow-up examination, following unspecified surgery Encounter for weight management Menorrhagia with irregular cycle Abnormal bleeding in menstrual cycle documented in this encounter [facility] HealthcareReason for referral (narrative)No reason for referral [facility] Work Phone: Assessments Note Patient: SABRINA VELASQUEZ MRN : ([id number] Age: 29 years Sex: Female : 1990 [...] for home later today Logan Driscoll MD [phone] SURGERY PROGRESS NOTE SUBJECTIVE: Patient denies abd [...] Documents on File Type Date Recorded Patient Test Bore Helper Expl 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 [facility] 09/16/18 14:45 [address] [place]. [address] PATIENT INFORMATION Name: SABRINA VELASQUEZ Address: [address] [place] [address] Age: 28 Years Phone: [phone] : 1990 12:00 MRN: ([id number] Sex: Female Race: White Ethnicity: Declined Admitted [...] summary document to your follow up appointments. [facility] 03/01/19 18:42 [address] [place]. [address] PATIENT INFORMATION Name: SABRINA VELASQUEZ Address: [address] [place] [address] Age: 29 Years Phone: [phone] : 1990 12:00 MRN: ([id number] Sex: Female Race: White Ethnicity: Declined Admitted From: Clinic or Phys Ofc Medical Service: Surgery Nurse Unit/Bed: (CO) 7TWH 2U10-38 Admit Date: 02/28/2019 08:18 PCP: Omid Killian MD PHYSICIANS INVOLVED WITH CARE Attending Physicians: Marcellus Driscoll MD - Surgery Admitting Physician: Marcellus Driscoll MD - Surgery Primary Care Physician:Omid Killian MD, - Consults: None found Problems Active Morbid (severe) obesity due to excess calories Obesity IBS (irritable bowel syndrome) GERD (gastroesophageal reflux (more content not included)... Note Patient: SABRINA VELASQUEZ MRN : [id number] Age: 29 years Sex: Female : 1990 [...] GERD, IBS, and heart murmur presented to [facility] on 02/28/2019 for an elective robotically assisted laparoscopic [place]-en-Y gastric bypass with by Purnima albarran an had an extensive preoperative workup. Patient tolerated the procedure well and was transferred to PACU in stable condition where she had an uneventful recovery. His then tra (more content not included)... Note Patient: SABRINA VELASQUEZ MRN : [id number] Age: 29 years Sex: Female : 1990 [...] for home later today Logan Driscoll MD [phone] SURGERY PROGRESS NOTE SUBJECTIVE: Patient denies abd [...] (02/28 12:00 (more content not included)... Note [facility] Patient Name: Sabrina Velasquez Procedure [...] not included)... Note Patient: SABRINA VELASQUEZ MRN: [facility] [facility])-[id number] Age: 28 years Sex: Female : 1990 Associated Diagnoses: None Author: Kasie Delvalle CRNA Supervising Physician Comments Documentation By: Certified Registered Nurse Proof Press Operator. Subjective Subjective: Patient participated in the [...] concluded. Note Patient: SABRINA VELASQUEZ MRN : [facility])-[id number] Age: 29 years Sex: Female : 1990 [...] (more content not included)... Procedure Findings Note [facility] Patient Name: Sabrina Velasquez Procedure [...] not included)... Note Patient: SABRINA VELASQUEZ MRN: [facility])-[id number] Age: 28 years Sex: Female : 1990 Associated Diagnoses: None Author: Kasie Delvalle CRNA Supervising Physician Comments Documentation By: Certified Registered Nurse Proof Press Operator. Subjective Subjective: Patient participated in the [...] concluded. Note Patient: SABRINA VELASQUEZ MRN : [facility])-[id number] Age: 29 years Sex: Female : 1990 [...] sent through Care Everywhere. * Miscarriage: Threatened (Faroese) documented in this encounter Additional Source Comments [...] Alicia Hudson MD ED Attending Physician [facility] Emergency Department documented in this encounter INFORMATION SOURCE (unrecogn ized section and content) DATE CREATED AUTHOR 06/15/2018 [facility] DATE CREATED AUTHOR AUTHOR'S ORGANIZ ATION 08/09/2019 [facility] DATE CREATED AUTHOR AUTHOR'S ORGANIZ ATION 12/27/2020 [facility] DATE CREATED AUTHOR AUTHOR'S ORGANIZ ATION 07/08/2024 [facility] DATE CREATED AUTHOR AUTHOR'S ORGANIZ ATION 06/03/2025 [facility] dical Specialists EPIC DATE CREATED AUTHOR AUTHOR'S ORGANIZ ATION 06/10/2025 [facility] ysician Group Reason for Visit (unrecogniz ed [...] on and content) ED PROVIDER NOTE [facility] EMERGENCY [facility]PARTMENT NAME: Sabrina Velasquez AGE: 30 y.o. : 1990 VISIT DATE: 07/14/2020 CSN: [id number] PCP: Omid Killian MD Clinical Impression: 1. Threatened ED Disposition ED Disposition Condition Comment Discharge Stable Sabrina Velasquez discharged to home/self care in stable condition. Follow-up Information 1. Roni Clemens MD. Specialty: Obstetrics/Gynecology Why: For recheck of today's symptoms [address] [facility] [place] [address] [facility] Emergency Department. Specialty: Emergency Medicine Why: As needed, If symptoms worsen [address] [facility] [address] Contact information for after-discharge care Follow-up information [...] this point clinically. Patient has appointment with COAT TAILOR on Thursday. Considered implantation bleeding, threatened , [...] reports she is scheduled to see her COAT TAILOR Dr. Clemens next week. Patient denies any [...] file Gets together: Not on file Attends restorationist service: Not on file Active member of [...] nursing note reviewed. Exam conducted with a imaging account manager present. Constitutional: Appearance: Normal appearance. HENT: Head: [...] Colorless, Yellow Clarity, Urine Clear Clear Specific [place] 1.011 1.005 - 1.025 pH, Urine 7.0 [...] bleeding, spontaneous of is believed most likely. [facility] Workstation ID: [id number] Procedures The patient [...] or hypertension. . Chris Pate PA-C [facility] Emergency Department Chris Pate PA-C 07/14/20 1340 [...] BE BASED ON THE PRIMARY CLINICAL RECORDS. [employer] provides no warranty or guarantee of the accuracy or completeness of information in this document.
--- OUTSIDE RECORDS SUMMARY | 2025-07-07 06:09 | XMS_ITS | Encounter Summary ---
Author Organization [facility] Address [address] [place] [address] Care Team Providers Care Newspaper Press Operator Apprentice Name Role Phone Unavailable Primary Care Provider Unavailabl e Encounter Details Date Type Department Care Team (Late st Contact Info) Description 06/07/2024 Abstract [facility] [address] [place] [address] [place] [phone] Arvind Tejada DO [address] [place] [address] Taina H[place]josa, [facility] Social History Tobacco Use Types Packs/Day [...] 11:50 AM EDT Office Visit LILIA MCHUGH [address] [place] [address] [place] [phone] Arvind Tejada DO [address] [place], [place] [phone] documented as of this encounter Visit Diagnoses Not on filedocumented in this encounter
--- OUTSIDE RECORDS SUMMARY | 2025-07-07 06:09 | XMS_ITS | Encounter Summary ---
Author Organization [facility] Address [address] [place] [address] Care Team Providers Care Anthropology And Archeology Instructor Name Role Phone Unavailable Primary Care Provider Unavailabl e Encounter Details Date Type Department Care Team (Late st Contact Info) Description 05/27/2024 Clinisync Result Encounter [facility] External Department Unsolicited Lia Tejada, DO [address] [place] [address] Social History Tobacco Use Types Packs/Day Years [...] Office Visit [facility] [place] [facility] [address] [place] [phone] Lia Tejada DO [address] [place] [address] documented as of this encounter Procedures Procedure Name Priority Date/Time Associated Diagnosis Comments US OB BPP W NON-STRESS 05/27/2024 2:56 PM EDT documented in this encounter Results * US OB BPP W NON-STRESS (05/27/2024 2:56 PM EDT) Anatomical Region Laterality Modality Other 05/27/2024 2:56 PM EDT Narrative 05/27/2024 2:58 PM EDT [place] [id number] Ultrasound Report Signed Patient: JOHANNA VELASQUEZ MR#: [id number] : 1990 Acct:[id number] Age/Sex: 34 / F ADM Date: 05/27/24 Loc: [facility] 250B-B Attending Dr: Lia Tejada D.O. Ordering Physician: Lia Tejada D.O. Date of Service: 05/27/24 Procedure(s): US OB BPP w non-stress Accession Number(s): [id number] cc: Lia Tejada D.O.; Physician,Non-Staff M.Galo The [place] [id number] Patient Name: JOHANNA VELASQUEZ MRN: [facility]:[id number] date: 1990 Sex: F Assigned Patient Location: US Current Patient Location: US Accession/Order Number: [id number] Exam Date: 05/27/2024 14:15 Report Date: 05/27/2024 [...] Signed By: 05/27/24 1458 DD/ 1456 TD/TT: Cut Out Operator: Procedure Note Radiology, Radiologist, MD - 05/27/2024 The [place] [id number] Ultrasound Report Signed Patient: JOHANNA VELASQUEZMR#: [id number] : 1990Acct:[id number] Age/Sex: 34 / FADM Date: 05/27/24 Loc: [place] [address]B-B Attending Dr: Lia Tejada D.O. Ordering Physician: Lia Tejada D.O. Date of Service: 05/27/24 Procedure(s): US OB BPP w non-stress Accession Number(s): [id number] cc: Lia Tejada D.O.; Physician,Non-Staff Estee The [place] [id number] Patient Name: JOHANNA VELASQUEZ MRN: [facility]:[id number] date: 1990 Sex: F Assigned Patient Location: US Current Patient Location: US Accession/Order Number: [id number] Exam Date: 05/27/2024 14:15 Report Date: 05/27/2024 [...] Shay Bey M.D. Signed By:05/27/24 1458 DD/ 55 TD/TT: Cut Out Operator: us Lia Tejada DO [facility] Final Result documented in this encounter Visit Diagnoses Not on filedocumented in this encounter
--- OUTSIDE RECORDS SUMMARY | 2025-07-07 06:09 | XMS_ITS | Encounter Summary ---
Author Organization [facility] Address [address] [place] [address] Care Team Providers Care Hand Method Lasting Machine Operator Name Role Phone Unavailable Primary Care Provider Unavailabl e Encounter Details Date Type Department Care Team (Late st Contact Info) Description 05/19/2024 Clinisync Result Encounter N[facility]S External Department Unsolicited Yessica Vela PA [address] [facility] [address] [place], [place] [address] Social History Tobacco Use Types Packs/Day Years [...] Office Visit [facility] [place] [facility] [address] [facility] [phone] Arvind Tejada DO [address] [facility] [place] [address] documented as of this encounter Procedures Procedure Name Priority Date/Time Associated Diagnosis Comments US OB GROWTH 05/19/2024 1:44 PM EDT documented in this encounter Results * US OB GROWTH (05/19/2024 1:44 PM EDT) Anatomical Region Laterality Modality Other 05/19/2024 1:44 PM EDT Narrative 05/19/2024 1:47 PM EDT [address] [address] Ultrasound Report Signed Patient: JOHANNA VELASQUEZ MR#: [id number] : 1990 Acct:[id number] Age/Sex: 34 / F ADM Date: 05/19/24 Loc: [facility] Attending Dr: Yessica Vela Ordering Physician: Yessica Vela Date of Service: 05/19/24 Procedure(s): US OB growth Accession Number(s): [id number] cc: Yessica Vela; Physician,Non-Staff M.D. [address] [address] Patient Name: JOHANNA VELASQUEZ MRN: [facility]:[id number] date: 1990 Sex: F Assigned Patient Location: [facility] Current Patient Location: [facility] Accession/Order Number: [id number] Exam Date: 05/19/2024 08:29 Report Date: 05/19/2024 [...] Signed By: 05/19/24 1347 DD/ 43 TD/TT: Environmental Engineering Assistant: Procedure Note Radiology, Radiologist, - 05/19/2024 [place] [address] Ultrasound Report Signed Patient: JOHANNA VELASQUEZMR#: [id number] : 1990Acct:[id number] Age/Sex: 34 / FADM Date: 05/19/24 Loc: [facility] Attending Dr: Yessica Vela Ordering Physician: Yessica Vela Date of Service: 05/19/24 Procedure(s): US OB growth Accession Number(s): [id number] cc: Yessica Vela; Physician,Non-Staff Estee The [place] [address] Patient Name: JOHANNA VELASQUEZ MRN: [facility]:[id number] date: 1990 Sex: F Assigned Patient Location: [facility] Current Patient Location: [facility] Accession/Order Number: [id number] Exam Date: 05/19/2024 08:29 Report Date: 05/19/2024 [...] M.D. Signed By:05/19/24 1347 DD/ 1344 TD/TT: Environmental Engineering Assistant: us Yessica SLOAN [facility] Final Result documented in this encounter Visit Diagnoses Not on filedocumented in this encounter
--- OUTSIDE RECORDS SUMMARY | 2025-07-07 06:09 | XMS_ITS | Encounter Summary ---
Author Organization [facility] Address [address] [place] [address] Care Team Providers Care Newsroom Intern Name Role Phone Unavailable Primary Care Provider Unavailabl e Encounter Details Date Type Department Care Team (Late st Contact Info) Description 06/10/2024 Clinisync Result Encounter NOMS External Department Unsolicited Lia Tejada, DO [address] [place] [address] Social History Tobacco Use Types Packs/Day Years [...] Office Visit [facility] [place] [facility] [address] [facility] [place] [address] Lia Tejada DO [address] [place] [address] documented as of this encounter Procedures Procedure Name Priority Date/Time Associated Diagnosis Comments US OB BPP W NON-STRESS 06/10/2024 9:32 AM EDT documented in this encounter Results * US OB BPP W NON-STRESS (06/10/2024 9:32 AM EDT) Anatomical Region Laterality Modality Other 06/10/2024 9:32 AM EDT Narrative 06/10/2024 9:35 AM EDT [address] [address] Ultrasound Report Signed Patient: JOHANNA VELASQUEZ MR#: [id number] : 1990 Acct:[id number] Age/Sex: 34 / F ADM Date: 06/10/24 Loc: [facility] 250-[address]: Lia Tejada D.O. Ordering Physician: Lia Tejada D.O. Date of Service: 06/10/24 Procedure(s): US OB BPP w non-stress Accession Number(s): [id number] cc: Lia Tejada D.O.; Physician,Non-Staff MLliian The [place] [id number] Patient Name: JOHANNA VELASQUEZ MRN: [id number] date: 1990 Sex: F Assigned Patient Location: [facility] Current Patient Location: [facility] Accession/Order Number: [id number] Exam Date: 06/10/2024 08:50 Report Date: 06/10/2024 [...] Dictated By: Shay Bey M.D. Signed By: 06/10/24934 DD/ 1 TD/TT: Hybrid Corn Breeder: Procedure Note Radiology, Radiologist, - 06/10/2024 [place] [address] Ultrasound Report Signed Patient: JOHANNA VELASQUEZMR#: [id number] : 1990Acct:[id number] Age/Sex: 34 / FADM Date: 06/10/24 Loc: [facility] 250-[address]: Lia Tejada D.O. Ordering Physician: Lia Tejada D.O. Date of Service: 06/10/24 Procedure(s): US OB BPP w non-stress Accession Number(s): [id number] cc: Lia Tejada D.O.; Physician,Non-Staff Estee The [place] [id number] Patient Name: JOHANNA VELASQUEZ MRN: [id number] date: 1990 Sex: F Assigned Patient Location: [facility] Current Patient Location: [facility] Accession/Order Number: [id number] Exam Date: 06/10/2024 08:50 Report Date: 06/10/2024 [...] By: Shay Bey M.D. Signed By:06/10/2435 DD/ 1 TD/TT: Hybrid Corn Breeder: us Lia Tejada DO [facility] Final Result documented in this encounter Visit Diagnoses Not on filedocumented in this encounter
--- OUTSIDE RECORDS SUMMARY | 2025-07-07 06:09 | XMS_ITS | Clinical Summary ---
Author Organization [facility] Address [address] [place] [address] Care Team Providers Care Exceptional Student Education Teacher Name Role Phone Unavailable Primary Care Provider Unavailabl e Allergies No known active allergies Medications metFORMIN XR (Glucophage-XR) 500 MG 24 hr tabletIndicatio ns:Encounter for weight management Take 2 tablets (1,000 mg) by mouth in the evening. Take with meals Do not crush, chew, or split. 30 tablet 11 03/30/2025 Active phentermine (Adipex-P) 37.5 MG tabletIndicatio ns:Encounter for weight management Take 1 tablet (37.5 mg) by mouth in the morning. Take before meals. 90 tablet 06/01/2025 Active Active Problems Problem Noted Date Diagnosed Date Postoperative follow-up 06/01/2025 Encounter for weight management 06/01/2025 Menorrhagia with irregular cycle 06/01/2025 Abnormal bleeding in menstrual cycle 06/01/2025 Encounters Date Type Department Care Team Description 06/07/2025 Abstract [facility] [address] [place] [address] Padmini Arias MA 06/01/2025 9:50 AM EDT Procedure Visit [facility] [address] [place] [address] Lia Tejada DO Postoperative follow-up; Encounter for weight management; Menorrhagia with irregular cycle; Abnormal bleeding in menstrual cycle 05/03/2025 11:00 AM EDT Office Visit [facility] [place] [facility] [address] [place] [address] Lia Tejada, DO Encounter for weight management 05/03/2025 Bamboo flowsheet [facility] [address] [place] [address] Lia Tejada, DO 04/27/2025 Abstract [facility] [address] [place] [address] Lia Tejada, DO 04/27/2025 Abstract [facility] [place] [facility] [address] [place] [address] Lia Tejada, DO 04/27/2025 Abstract [facility] [address] [place] [address] Lia Tejada, DO 04/27/2025 Abstract [facility] [address] [place] [address] Lia Tejada, DO 04/26/2025 Clinisync Result Encounter NOMS External Department Unsolicited Lia Tejada, DO 04/26/2025 Clinisync Result Encounter [facility]S External Department Unsolicited Lia Tejada, DO 04/20/2025 Clinisync Result Encounter [facility]OMS External Department Unsolicited Lia Tejada, DO 04/11/2025 Telephone [facility] [address] [place] [phone] Shari Bertrand LPN from Last 3 Months Social History Tobacco [...] 11:50 AM EDT Office Visit [facility] [address] [place] [phone] Lia Teajda DO [address] [facility] [place] [address] Procedures Procedure Name Priority Date/Time Associated Diagnosis Comments ENDOMETRIAL BIOPSY Routine 06/01/2025 10 :19 AM EDT Postoperative follow-up Encounter for weight management Menorrhagia with irregular cycle Abnormal bleeding in menstrual cycle POCT , URINE Routine 06/01/2025 10:05 AM EDT Postoperative follow-up XR CHEST 2V 04/26/2025 1:16 PM EDT [facility] PREG QUANT HCG Routine 04/26/2025 12 :45 PM EDT ALL CBC WITH AUTO DIFF Routine 04/26/2025 12:45 PM EDT XR ABDOMEN 1V 04/20/2025 10:22 AM EDT from Last 3 Months Results * Endometrial biopsy (06/01/2025 10:19 AM EDT) Latanya Severino LPN - 06/01/2025 10:19 AM EDT Latanya Barkley LPN 06/12/2025 11:42 AM Endometrial biopsy Date/Time: 06/01/2025 10:19 AM Performed by: Lia Tejada DO Authorized by: Lia Tejada DO Consent: Consent obtained: written Consent [...] Patient tolerance: tolerated well, no immediate complications Lia Tejada DO IN CLINIC/BEDSIDE ORDERABLES Fin al Result * POCT , urine manually resulted (06/01/2025 10:05 AM EDT) Preg Test, Ur Negative Negative Urine 06/01/2025 10:0 5 AM EDT Lia Tejada DO POINT OF CARE TEST ENTER/EDIT OR DERABLES Final Result * XR CHEST 2V (04/26/2025 1:16 PM EDT) Anatomical Region Laterality Modality Other 04/26/2025 1:16 PM EDT Narrative 04/26/2025 1:19 [place] [address] XRay Report Signed Patient: JOHANNA VELASQUEZ MR#: [id number] : 1990 Acct:[id number] Age/Sex: 35 / F ADM Date: 04/26/25 Loc: PST Attending Dr: Lia Tejada D.O. Ordering Physician: Lia Tejada D.O. Date of Service: 04/26/25 Procedure(s): XR chest 2V Accession Number(s): [id number] cc: Lia Tejada D.O.; Physician,Non-Staff Estee [address] [address] Patient Name: JOHANNA VELASQUEZ MRN: [id number] date: 1990 Sex: F [facility] Accession/Order Number: [id number] Exam Date: 04/26/2025 13:15 Report Date: 04/26/2025 [...] Andrade M.D. 04/26/2025 1:16 PM Dictation Location: [place] [address] Electronically authenticated by: [id number] Y Date: 04/26/2025 13:16 Dictated By: Shari Andrade M.D. Signed By: 04/26/25 1319 DD/ 1316 TD/TT: Operations And Maintenance Specialist: Procedure Note Radiology, Radiologist, MD - 04/26/2025 [place] [address] XRay Report Signed Patient: JOHANNA VELASQUEZMR#: [id number] : 1990Acct:[id number] Age/Sex: 35 / FADM Date: 04/26/25 Loc: [facility] Attending Dr: Lia Tejada D.O. Ordering Physician: Lia Tejada D.O. Date of Service: 04/26/25 Procedure(s): XR chest 2V Accession Number(s): [id number] cc: Lia Tejaad D.O.; Physician,Non-Staff Estee The [address] [address] Patient Name: JOHANNA VELASQUEZ MRN: [id number] date: 1990 Sex: F [facility]igned [facility] Current Patient Location: [facility] Accession/Order Number: [id number] Exam Date: 04/26/2025 13:15 Report Date: 04/26/2025 [...] Andrade M.D. 04/26/2025 1:16 PM Dictation Location: [place] [address] Electronically authenticated by: [id number] Y Date: 3:16 Dictated By: Shari Andrade M.D. Signed By:04/26/25 1319 DD/ 15 TD/TT: Operations And Maintenance Specialist: [facility] Final Result * [facility] PREG QUANT HCG (04/26/2025 12:45 PM EDT) [facility] HCG QUANTITATIVE <1 mIU/mL [facility] Comment: 5-50 0.2-1 WEEK 50-500 1-2 WEEKS 100-5,000 2-3 WEEKS 500-10,000 3-4 WEEKS 1,000-50,000 4-5 WEEKS 10,000-100,000 5-6 WEEKS 15,000-200,000 6-8 WEEKS 10,000-100,000 2-3 MONTHS 04/26/2025 12:4 5 PM EDT 04/26/2025 12:52 PM EDT Narrative [facility] - 04/26/2025 1:47 PM EDT [facility] Final Result [facility] * (ABNORMAL) ALL CBC WITH AUTO DIFF (04/26/2025 12:45 PM EDT) [facility] TB WBC 5.1 4.0 - 11.0 10 3/uL [...] Narrative [facility] - 04/26/2025 1:09 PM EDT us Lia Mallory DO [facility] Final Result [facility] TB * XR ABDOMEN 1V (04/20/2025 10:22 AM EDT) Anatomical Region Laterality Modality Other 04/20/2025 10:2 2 AM EDT Narrative 04/20/2025 10:25 AM EDT [address] [address] XRay Report Signed Patient: JOHANNA VELASQUEZ MR#: [id number] : 1990 Acct:[id number] Age/Sex: 35 / F ADM Date: 04/20/25 Loc: RAD Attending Dr: Lia Tejada D.O. Ordering Physician: Lia Tejada D.O. Date of Service: 04/20/25 Procedure(s): XR abdomen 1V Accession Number(s): [id number] cc: Lia Tejada D.O.; Physician,Non-Staff Estee [address] [address] Patient Name: JOHANNA VELASQUEZ MRN: [id number] date: 1990 Sex: F Assigned Patient Location: [facility] Current Patient Location: [facility] Accession/Order Number: [id number] Exam Date: 04/20/2025 10:20 Report Date: 04/20/2025 [...] Andrade M.D. 04/20/2025 10:22 AM Dictation Location: [place] [address] Electronically authenticated by: [id number] Y Date: 04/20/2025 10:22 Dictated By: Shari Andrade M.D. Signed By: 04/20/25 1025 DD/ 1022 TD/TT: Operations And Maintenance Specialist: Procedure Note Radiology, Radiologist, - 04/20/2025 The [place] [id number] XRay Report Signed Patient: JOHANNA VELASQUEZMR#: [id number] : 1990Acct:[id number] Age/Sex: 35 / FADM Date: 04/20/25 Loc: RAD Attending Dr: Lia Tejada D.O. Ordering Physician: Lia Tejada D.O. Date of Service: 04/20/25 Procedure(s): XR abdomen 1V Accession Number(s): [id number] cc: Lia Tejada D.O.; Physician,Non-Staff Estee The [place] [phone] Patient Name: JOHANNA VELASQUEZ MRN: [id number] date: 1990 Sex: F Assigned Patient Location: [facility] Current Patient Location: [facility] Accession/Order Number: [id number] Exam Date: 04/20/2025 10:20 Report Date: 04/20/2025 [...] Andrade M.D. 04/20/2025 10:22 AM Dictation Location: [place] [address] Electronically authenticated by: [id number] Y Date: 0:22 Dictated By: Shari Andrade M.D. Signed By:04/20/25 1025 DD/ 1022 TD/TT: Operations And Maintenance Specialist: us Lia Tejada DO [facility] Final Result from Last 3 Months Insurance [employer]
--- OUTSIDE RECORDS SUMMARY | 2025-07-07 06:09 | XMS_ITS | Encounter Summary ---
Author Organization [facility] Address [address] [place] [address] Care Team Providers Care Accounting Representative Name Role Phone Unavailable Primary Care Provider Unavailabl e Encounter Details Date Type Department Care Team (Late st Contact Info) Description 06/13/2024 Abstract [facility] [address] [place] [address] [place] [phone] Arvind Tejada DO [address] [place] [address] Taina [place], [facility]11 Social History Tobacco Use Types Packs/Day Years [...] 11:50 AM EDT Office Visit LILIA MCHUGH [address] [place] [address] [place] [phone] Arvind Tejada DO [address] [place], [place] [phone] documented as of this encounter Visit Diagnoses Not on filedocumented in this encounter
--- OUTSIDE RECORDS SUMMARY | 2025-07-07 06:09 | XMS_ITS | Encounter Summary ---
Author Organization [facility] Address [address] [place] [address] Care Team Providers Care Wire Fence Builder Name Role Phone Unavailable Primary Care Provider Unavailabl e Encounter Details Date Type Department Care Team (Late st Contact Info) Description 04/07/2024 Abstract [facility] [address] [place] [address] [place] [phone] Arvind Tejada DO [address] [place] [address] Taina [place], [facility]11 Social History [...] 11:50 AM EDT Office Visit LILIA MCHUGH [address] [place] [address] [place] [phone] Arvind Tejada DO [address] [place], [place] [phone] documented as of this encounter Visit Diagnoses Not on filedocumented in this encounter
[2025-07-07 06:17] LABS: Hematocrit 35.4 % (36.0-48.0); Hemoglobin 11.4 g/dL (12.0-16.0); Immature Granulocytes Abs Auto 0.01 10^3/uL (0.00-0.03); Immature Granulocytes Pct Auto 0.1 % (0.0-0.5); Lymphocytes Absolute Auto 2.7 10^3/uL (1.2-3.8); Mean Corpuscular HGB Conc 32.2 g/dL (29.9-35.2); Mean Corpuscular Hemoglobin 25.8 pg (26.7-34.0); Mean Corpuscular Volume 80.1 fL (81.0-99.0); Platelet Count 202 10^3/uL (150-450); Red Blood Count 4.42 10^6/uL (4.20-5.40); White Blood Count 7.0 10^3/uL (4.0-11.0)
[2025-07-07] MEDS: KETOROLAC TROMETHAMINE 30 MG/ML VIAL IVP (08:24)
--- NOTE | 2025-07-07 08:43 | PM.ONB ---
Brief Operative Note Date of procedure: 07/07/25 Pre-op diagnosis general: menorrhagia Post-op diagnosis: same as pre-op Procedure: NAME OF PROCEDURE: [ ] Anna endometrial ablation with hysteroscopy. PROCEDURE: The patient was taken back to the OR where she was prepped and draped in the normal sterile fashion after being placed in the dorsal lithotomy position, after being placed under general anesthesia without difficulty.? A weighted speculum was placed into the vagina. The anterior lip was grasped with a single tooth tenaculum. The patient was then sounded to approximated 8cm. The patient?s cervix was gently dilated using hegardilators. The hysteroscope was passed through the cervix into the uterus where both ostia were seen. No gross evidence of polyps, fibroids or malignancy. The cervical length was noted to be 4 cm. The total cavity length is 4cm.? The Anna ablation apparatus was set to approximately 4cm in length. This was placed through the cervix and into the uterus. After the seal was tested, at that time the total ablation of 104 seconds was performed with the Anna without difficulty. I was asked to abort surgery due to bradycardia All instruments were removed from the vagina. Excellent hemostasis noted.? Sponge and lap count correct times 2.? Patient taken to recovery in stable condition. Anesthesia: MAC Surgeon: Arvind Tejada Estimated blood loss (mL): 5 Pathology: none sent Condition: stable Disposition: PACU Urinary Catheter Management Urinary Catheter Management Urethral: Cath placed during this visit: no
--- NOTE | 2025-07-07 08:57 | PC.NURSE ---
Up to bathroom and voids clear yellow without difficulty
== END 2025-07-07 09:19 | disposition home or self-care (01) ==
LOC: SURGOUT 06:06
PROVIDERS: Visit Provider Obstetrics & Gynecology
PROC: (CPT 952; principal; 2025-07-07 07:30)
DX: N92.0 Excessive and frequent menstruation with regular cycle (principal); N93.9 Abnormal uterine and vaginal bleeding, unspecified; R10.2 Pelvic and perineal pain; Z98.84 Bariatric surgery status; Z90.79 Acquired absence of other genital organ(s); F17.210 Nicotine dependence, cigarettes, uncomplicated
CPT/HCPCS: 58563; 36415; 82948; 84702; 85025; J1885; J2250; J2704; J3010